=== PATIENT | male | born 1975 | race Caucasian/White ===

== ENCOUNTER → 2018-03-15 15:47 | Outpatient (REF) | payer MEDICARE, SELFPAY ==
[2018-03-15 18:29] LABS: Bilirubin Negative (Negative); Blood Trace-intact (Negative); Clarity Clear; Glucose Negative (Negative); Ketones Negative (Negative); Leukocyte Esterase Negative (Negative); Nitrite Negative (Negative); Specific Gravity 1.015 (1.005-1.025); Urobilinogen 0.2 EU/dL (Up TO 0.2); pH 5.5 (5-8)
[2018-03-15 18:43] LABS: Bacteria Few HPF (Negative); Casts Negative LPF (Negative); Crystals Negative HPF (Negative); Epithelial Cells Few HPF (Negative); Mucus Moderate (Negative); RBC 0-2 (0-2); WBC 0-2 HPF (0-5)
[2018-03-15 18:44] LABS: C & S Indicated? No
== END ==
LOC: NCHCN 15:47
PROVIDERS: PCP Nurse Practitioner Family; Visit Provider Nurse Practitioner Family
DX: R39.89 Other symptoms and signs involving the genitourinary system (principal)
CPT/HCPCS: 81003; 81015

== ENCOUNTER 2018-04-19 13:49 | Outpatient (CLI) | payer MEDICARE, SELFPAY ==
[2018-04-21 11:14] LABS: Hepatitis B Surface Ag Negative (NEGAT)
[2018-04-21 11:35] LABS: Hep A Total Ab w Rflx IgM Negative (NEGAT); Hep B Core Antibody Negative (NEGAT)
[2018-04-22 08:43] LABS: ALT 26 U/L (7-55); ActiTest Grade A0; ActiTest Interpretation no activity; ActiTest Score 0.09; Alpha-2-Macroglobulin 181 mg/dL (100 - 280); Apoliprotein A1 102 mg/dL (>=120); Bilirubin, Total 0.3 mg/dL (<=1.2); FibroTest Interpretation no fibrosis; FibroTest Score 0.12; FibroTest Stage F0; GGT 37 U/L (8 - 61); Haptoglobin 343 mg/dL (30 - 200)
[2018-04-22 10:42] LABS: HCV Genotype 1a (Undetected)
== END 2018-04-19 14:09 ==
PROVIDERS: PCP Nurse Practitioner Family; Visit Provider Family Medicine
DX: B19.20 Unspecified viral hepatitis C without hepatic coma (principal)
CPT/HCPCS: 36415; 82172; 82247; 82977; 83010; 83883; 84460; 86704; 86709; 87340; 87521

== ENCOUNTER 2018-04-29 12:15 | Outpatient (CLI) | payer MEDICARE, SELFPAY ==
[2018-04-30 11:36] LABS: Hepatitis B Surface Ag Negative (NEGAT)
[2018-04-30 11:37] LABS: Hep A Total Ab w Rflx IgM Negative (NEGAT)
[2018-05-01 13:01] LABS: ALT 26 U/L (7-55); ActiTest Grade A0; ActiTest Interpretation no activity; Alpha-2-Macroglobulin 211 mg/dL (100 - 280); Apoliprotein A1 103 mg/dL (>=120); Bilirubin, Total 0.4 mg/dL (<=1.2); FibroTest Interpretation no fibrosis; FibroTest Score 0.18; FibroTest Stage F0; GGT 38 U/L (8 - 61); Haptoglobin 375 mg/dL (30 - 200)
[2018-05-03 16:12] LABS: HCV Genotype 1a (Undetected)
== END 2018-04-29 12:35 ==
PROVIDERS: PCP Nurse Practitioner Family; Visit Provider Family Medicine
DX: B19.20 Unspecified viral hepatitis C without hepatic coma (principal)
CPT/HCPCS: 36415; 82172; 82247; 82977; 83010; 83883; 84460; 86709; 87340; 86704; 87521

== ENCOUNTER 2018-05-04 15:34 | Outpatient (REF) | payer MEDICARE, SELFPAY ==
[2018-05-06 13:26] LABS: Chlamydia Result Negative; GC Result Negative; Specimen Description URINE
== END 2018-05-04 15:54 ==
LOC: NCHCN 15:34
PROVIDERS: PCP Nurse Practitioner Family; Visit Provider Nurse Practitioner Family
DX: N50.812 Left testicular pain (principal); Z11.3 Encounter for screening for infections with a predominantly sexual mode of transmission
CPT/HCPCS: 87491; 87591

== ENCOUNTER 2018-05-11 11:07 | Outpatient (CLI) | payer MEDICARE, MEDICAID, SELFPAY ==
--- NOTE | 2018-05-11 12:28 | DI.US_ITS ---
SYMPTOMS/DIAGNOSIS: LT TESTICULAR PAIN, N50.812, ACUTE PAIN, SWELLING TESTICULAR ULTRASOUND: The right testicle measures 3.2 x 1.8 x 2.5 cm. It is homogeneous with normal blood flow. No evidence of torsion or mass. The right epididymis is unremarkable with normal color flow. The left testicle measures 3.1 x 1.6 x 2.4 cm. It is homogeneous in echogenicity with normal blood flow. No evidence of torsion or mass is seen. The left epididymis is unremarkable save for two small spermatoceles. There appear to be three small extratesticular cysts along the scrotal wall. They are simple without any blood flow. IMPRESSION: No evidence of testicular torsion, infarct or mass.
[2018-05-13 17:37] LABS: Index Value 0.12 (0.00-0.79); Mumps Ab, IgG Positive; Mumps Ab, IgM Negative (Negative)
== END 2018-05-11 11:27 ==
PROVIDERS: PCP Nurse Practitioner Family; Visit Provider Family Medicine
DX: N50.812 Left testicular pain (principal); N50.89 Other specified disorders of the male genital organs; N43.40 Spermatocele of epididymis, unspecified
CPT/HCPCS: 36415; 83735; 86735; 76870

== ENCOUNTER 2018-05-25 00:42 | Outpatient (CLI) | payer MEDICARE, MEDICAID, SELFPAY ==
--- NOTE | 2018-05-25 09:00 | DI.RAD_ITS ---
SYMPTOMS/DIAGNOSIS: LEFT KNEE PAIN, M25.562 LEFT KNEE: The joint spaces are well maintained. There are no significant degenerative changes. No fracture or joint effusion is seen. IMPRESSION: Negative left knee.
== END 2018-05-25 01:02 ==
PROVIDERS: PCP Nurse Practitioner Family; Visit Provider Family Medicine
DX: M25.562 Pain in left knee (principal)
CPT/HCPCS: 73562

== ENCOUNTER 2018-06-18 09:17 | Outpatient (CLI) | payer MEDICARE, SELFPAY ==
[2018-06-18 11:06] LABS: TSH 1.46 uIU/mL (0.358-3.74); Vitamin B12 402 pg/mL (193-986)
== END 2018-06-18 09:37 ==
PROVIDERS: Nurse Practitioner Family; PCP Nurse Practitioner Family; Visit Provider Nurse Practitioner Family
DX: F10.11 Alcohol abuse, in remission (principal); E78.5 Hyperlipidemia, unspecified; I10 Essential (primary) hypertension; E66.9 Obesity, unspecified
CPT/HCPCS: 36415; 82607; 84443

== ENCOUNTER 2018-07-06 09:22 | Outpatient (CLI) | payer MEDICARE, SELFPAY ==
[2018-07-06 09:53] LABS: HCT 38.2 % (40.0-50.0); HGB 12.1 g/dL (13.5-17.5); Mean Corp. HGB Concentration 31.7 g/dL (32.0-36.0); Mean Corpuscular Hemoglobin 26.5 pg (27.0-33.0); Mean Corpuscular Volume 83.6 fL (80-95); Mean Platelet Volume 8.8 fL (8.0-11.0); Platelet Count 348 x1000/uL (130-400); RBC 4.57 m/cumm (4.50-6.00); RBC Distribution Width 14.4 % (11.8-14.1)
[2018-07-06 11:33] LABS: ALT 20 U/L (12-78); AST 14 U/L (15-37); Albumin 3.3 g/dL (3.4-5.0); Alkaline Phosphatase 94 U/L (46-116); Anion Gap 11.2 mmol/L (3-11); BUN 12 mg/dL (7-18); Bilirubin, Total 0.5 mg/dL (0.2-1.0); CO2 25.8 mmol/L (21.0-32.0); CREATININE 1.09 mg/dL (0.70-1.30); Calcium 8.9 mg/dL (8.5-10.1); Chloride 102 mmol/L (98-107); Glucose 103 mg/dL (70-100); Potassium 4.1 mmol/L (3.5-5.1); Sodium 139 mmol/L (136-145); Total Protein 7.2 g/dL (6.4-8.2)
[2018-07-07 14:04] LABS: HCV RNA Detection Quantitative Undetected IU/mL (UNDECT)
== END 2018-07-06 09:42 ==
PROVIDERS: PCP Nurse Practitioner Family; Visit Provider Family Medicine
DX: B19.20 Unspecified viral hepatitis C without hepatic coma (principal)
CPT/HCPCS: 36415; 80053; 85027; 87522

== ENCOUNTER 2018-08-02 08:49 | Inpatient (IN) | payer MEDICARE, MEDICAID, SELFPAY ==
[2018-08-02 08:56] VITALS: BP 143/86; PULSE 102; RESP 16; TEMP 37.8; O2SAT 98
--- NOTE | 2018-08-02 09:01 | NUR.NOTE ---
Pt. states he is on his last week of 8 week long treatment for Hep C, Mavret Treatment, which he takes as a pill.
[2018-08-02 10:08] LABS: Lactate-non-spesis 1.1 mmol/L (0.6-1.4)
[2018-08-02 10:09] LABS: Abs Immature Grans 0.02 k/cumm (0.0-0.09); Absolute Basophil Count 0.02 k/cumm (0.0-0.2); Absolute Eosinophil Count 0.15 k/cumm (0.0-0.7); Absolute Lymphocyte Count 1.49 k/cumm (1.2-3.4); Absolute Monocyte Count 0.68 k/cumm (0.11-0.7); Absolute Neutrophil Count 7.17 k/cumm (1.2-6.7); Basophils % 0.2; Eosinophils % 1.6; HGB 12.2 g/dL (13.5-17.5); Immature Grans % 0.2; Lymphocytes % 15.6; Mean Corp. HGB Concentration 32.1 g/dL (32.0-36.0); Mean Corpuscular Hemoglobin 26.6 pg (27.0-33.0); Mean Corpuscular Volume 82.8 fL (80-95); Mean Platelet Volume 8.6 fL (8.0-11.0); Monocytes % 7.1; Neutrophils % 75.3; Platelet Count 319 x1000/uL (130-400); RBC 4.59 m/cumm (4.50-6.00); RBC Distribution Width 14.9 % (11.8-14.1); White Blood Cell Count 9.53 k/cumm (4.4-10.8)
--- NOTE | 2018-08-02 10:17 | DI.RAD_ITS ---
SYMPTOMS/DIAGNOSIS: PAIN, SWELLING PELVIS AND LEFT HIP: No fracture or dislocation is seen. Vascular clips are noted in the upper left thigh. There is some acetabular spurring bilaterally. Hardware is noted in the lower lumbar spine. IMPRESSION: No acute abnormality.
[2018-08-02 10:22] LABS: C-Reactive Protein 7.38 mg/dL (0.0-0.3)
[2018-08-02 10:26] LABS: ALT 19 U/L (12-78); AST 17 U/L (15-37); Albumin 3.3 g/dL (3.4-5.0); Alkaline Phosphatase 84 U/L (46-116); BUN 15 mg/dL (7-18); Bilirubin, Total 0.5 mg/dL (0.2-1.0); CREATININE 1.09 mg/dL (0.70-1.30); Calcium 9.6 mg/dL (8.5-10.1); Chloride 102 mmol/L (98-107); Glucose 101 mg/dL (70-100); Potassium 3.9 mmol/L (3.5-5.1); Sodium 140 mmol/L (136-145)
--- NOTE | 2018-08-02 10:47 | W.ED.GENAD ---
Discharge Plan Discharge Details Chief Complaint: Orthopedic Reason For Visit: LEFT HIP SOFT TISSUE INFECTION Admit Date/Time: 08/02/18 15:14 Admit Provider: Natanael Restrepo Attending Provider: Natanael Restrepo Primary Care Provider: Ashely Mueller ED Provider: Thelma Horowitz Discharge Data Discharge Date/Time-TO BE ENTERED AT DEPARTURE: 08/02/18 15:30 Medical Decision Making Jason Avila is a 42 y/o man with h/o hepatitis C, IVDU in the past, GERD presenting to the emergency department with left proximal thigh pain and redness. On exam Pt is well and non-toxic appearing, walks with a limp, area of erythema/induration/TTP without fluctuance over left proximal anterior thigh. Concern for abscess vs myositis vs less likely septic hip vs other. Plan for screening labs, CT, ortho consult. CT shows no abscess, concern for myositis. Dr. Restrepo at bedside, abx held for aspiration attempt. No fluid collection on bedside US. No aspiration performed. Will give vanc zosyn. Plan for admission. Clinical Impression: myositis Disposition: [facility] inpatient Medical Records Medical records reviewed: Yes I reviewed the patient's medical records. Imaging Data Radiologic Study: Attestation: I personally reviewed and interpreted this imaging study as follows: Radiologist's impression: CT OF THE PELVIS: Comparison is made with a CT of the abdomen and pelvis dated January,. Postcontrast exam was performed. There is stranding in the subcutaneous fat of the upper anterior thigh. There are surgical clips, which were seen on the previous exam. There are rounded areas of low density and enlargement within the iliopsoas muscle, sartorius and rectus femoris muscles. More distally, the muscles appear normal. Findings could represent an infection versus malignancy. The hip joint shows no evidence of a joint effusion. No bony destruction is seen. There is some spurring at the greater trochanter and a small spur seen anteriorly at the femoral head, which appears unchanged. IMPRESSION: Muscle enlargement of the upper anterior thigh with surrounding soft tissue edema may represent myositis. Malignancy cannot be entirely excluded. Lab Data Lab results reviewed: Yes I reviewed the patient's lab results. HPI General Mode of arrival: ambulatory. Date/Time Provider Initiated Documentation: 08/02/18 09:35. Limitations to Documentation: no limitations. Information obtained by: patient, RN notes reviewed and old records reviewed. HPI Narrative: Jason Joiner is a 42-year-old man with history of hepatitis C, IV drug use in the past, anxiety, hypertension presenting to the emergency department with left-sided thigh pain. He reports that he last used IV drugs several years ago. He is currently toward the end of treatment regimen for hepatitis C. Patient reports that 2 days ago he started to develop pain in his anterior left hip/left thigh. This has been worsening over time. He now has significant pain with walking. He has also had generalized fatigue, malaise, and subjective fevers over the past 1-2 weeks. He denies any other pain. No other recent illness. Patient reports that he does not recall injuring the area recently or any skin wound to the painful area. Has been eating and drinking as usual. No recent travel. Patient reports that several years ago he had surgery to the painful area for washout of infection. He reports that he has had no complications from that surgery since it was performed years ago. Related Data Home Medications Medication Instructions Recorded Confirmed acetaminophen [Tylenol] 650 mg PO PRN PRN 08/02/18 08/02/18 glecaprevir-pibrentasvir [Mavyret] 3 tab PO DAILY 08/02/18 08/02/18 Allergies Allergy/AdvReac Type Severity Reaction Status Date / Time No Known Allergies Allergy Unverified 05/26/17 12:05 General Stated Complaint: Orthopedic DEEPTI: 3 Review of Systems Review of Systems Constitutional: denies fevers Eyes: denies eye pain ENT: denies facial pain, dental pain, sore throat Cardiovascular: denies chest pain, edema Respiratory: denies SOB, cough GI: denies abdominal pain, vomiting, diarrhea : denies flank pain MSK: denies back pain, neck pain, reports left hip pain Skin: reports left thigh rash Neuro: denies headaches, numbness, tingling, weakness PFSH Medical History Affective personality disorder (Chronic) Anxiety (Chronic) Bipolar 2 disorder (Chronic) Depression (Chronic) GERD (gastroesophageal reflux disease) (Chronic) HTN (hypertension) (Chronic) Hepatitis C (Chronic) History of alcohol abuse (Chronic) History of intravenous drug abuse (Chronic) Hyperlipidemia (Chronic) Kidney stones (Chronic) PTSD (post-traumatic stress disorder) (Chronic) TBI (traumatic brain injury) (Chronic) Surgical History Appendectomy Colonoscopy - MAC (11/14/16) EGD - MAC (11/14/16) Rotator Cuff Repair Spinal Fusion Vasectomy Social History Smoking/Tobacco Use Status: Current every day Exam Narrative Exam Narrative: Constitutional: well and [id number], pleasant, conversing normally HENT: head atraumatic, normocephalic normal inspection, mucous membranes moist Eyes: conjunctiva normal, sclera normal, pupils 3mm b/l Neck: no stridor, normal ROM, trachea midline Chest: normal inspection Resp: normal work of breathing, LCTAB Cardio: normal rate, normal rhythm, no murmur appreciated GI: abdomen soft, non-tender, non-distended : No inguinal LAD Back: normal inspection, no rash Skin: warm, dry, normal color, no rash other than as below Neuro: alert, not altered, grossly non-focal, normal tone, no motor or sensory deficit LLE Ext: left proximal anterior thigh with mild erythema [id number], induration without fluctuance, TTP. No TTP of lateral hip. ROM left hip somewhat limited by pain. Bears weight on LLE but walks with a limp. Psych: normal mood, normal affect, normal behavior Course Vital Signs Temperature 37.8 C H 08/02/18 08:56 Pulse 102 H 08/02/18 08:56 Respiratory Rate 16 08/02/18 08:56 Blood Pressure 143/86 H 08/02/18 08:56 Pulse Oximetry 98 08/02/18 08:56 Temperature 37.8 C H 08/02/18 08:56 Temperature Source Temporal Artery Scan 08/02/18 08:56 Pulse 102 H 08/02/18 08:56 Respiratory Rate 16 08/02/18 08:56 Respiratory Effort 08/02/18 09:40 Blood Pressure 143/86 H 08/02/18 08:56 Blood Pressure Position Sitting 08/02/18 08:56 Pulse Oximetry 98 08/02/18 08:56 Oxygen Delivery Method Room Air 08/02/18 08:56 Oxygen Flow Rate 0 08/02/18 08:56 Pain Level 7 08/02/18 08:56 Comment 08/02/18 08:56 Lab/Test Results Lab/Test Results: 08/02/18 09:45 Blood Blood Culture - Pending 08/02/18 09:45 Blood Blood Culture - Pending Laboratory Tests Range/Units 08/02/18 08/02/18 08/02/18 09:45 09:45 09:45 WBC (4.4-10.8) k/cumm RBC (4.50-6.00) m/cumm Hgb (13.5-17.5) g/dL Hct (40.0-50.0) % MCV (80-95) fL MCH (27.0-33.0) pg MCHC (32.0-36.0) g/dL RDW (11.8-14.1) % Plt Count (130-400) x1000/uL MPV (8.0-11.0) fL Immature Gran % Neutrophils % Lymphocytes % Monocytes % Eosinophils % Basophils % Absolute Neutrophils (1.2-6.7) k/cumm Absolute Lymphocytes (1.2-3.4) k/cumm Absolute Monocytes (0.11-0.7) k/cumm Absolute Eosinophils (0.0-0.7) k/cumm Absolute Basophils (0.0-0.2) k/cumm Sodium (136-145) mmol/L 140 Potassium (3.5-5.1) mmol/L 3.9 Chloride (98-107) mmol/L 102 Carbon Dioxide (21.0-32.0) mmol/L 28.0 Anion Gap (3-11) mmol/L 10.0 BUN (7-18) mg/dL 15 Creatinine (0.70-1.30) mg/dL 1.09 Estimated GFR/1.73 m2 (mL/min/1.73m2) >= 60.00 Glucose (70-100) mg/dL 101 H Lactate (0.6-1.4) mmol/L 1.1 Calcium (8.5-10.1) mg/dL 9.6 Total Bilirubin (0.2-1.0) mg/dL 0.5 AST (15-37) U/L 17 ALT (12-78) U/L 19 Alkaline Phosphatase (46-116) U/L 84 C-Reactive Protein (0.0-0.3) mg/dL 7.38 H Total Protein (6.4-8.2) g/dL 8.0 Albumin (3.4-5.0) g/dL 3.3 L Range/Units 08/02/18 09:45 WBC (4.4-10.8) k/cumm 9.53 RBC (4.50-6.00) m/cumm 4.59 Hgb (13.5-17.5) g/dL 12.2 L Hct (40.0-50.0) % 38.0 L MCV (80-95) fL 82.8 MCH (27.0-33.0) pg 26.6 L MCHC (32.0-36.0) g/dL 32.1 RDW (11.8-14.1) % 14.9 H Plt Count (130-400) x1000/uL 319 MPV (8.0-11.0) fL 8.6 Immature Gran % 0.2 Neutrophils % 75.3 Lymphocytes % 15.6 Monocytes % 7.1 Eosinophils % 1.6 Basophils % 0.2 Absolute Neutrophils (1.2-6.7) k/cumm 7.17 H Absolute Lymphocytes (1.2-3.4) k/cumm 1.49 Absolute Monocytes (0.11-0.7) k/cumm 0.68 Absolute Eosinophils (0.0-0.7) k/cumm 0.15 Absolute Basophils (0.0-0.2) k/cumm 0.02 Sodium (136-145) mmol/L Potassium (3.5-5.1) mmol/L Chloride (98-107) mmol/L Carbon Dioxide (21.0-32.0) mmol/L Anion Gap (3-11) mmol/L BUN (7-18) mg/dL Creatinine (0.70-1.30) mg/dL Estimated GFR/1.73 m2 (mL/min/1.73m2) Glucose (70-100) mg/dL Lactate (0.6-1.4) mmol/L Calcium (8.5-10.1) mg/dL Total Bilirubin (0.2-1.0) mg/dL AST (15-37) U/L ALT (12-78) U/L Alkaline Phosphatase (46-116) U/L C-Reactive Protein (0.0-0.3) mg/dL Total Protein (6.4-8.2) g/dL Albumin (3.4-5.0) g/dL
--- NOTE | 2018-08-02 10:53 | NUR.NOTE ---
In no distress, awaiting results and dispo.
[2018-08-02 10:59] LABS: ESR 94 MM/HR (0-15)
--- NOTE | 2018-08-02 11:22 | NUR.NOTE ---
Pt moved to results waiting room because of room needs, pt. is frustrated, but verbalizes understanding and agrees to wait for results and disposition.
--- NOTE | 2018-08-02 11:42 | NUR.NOTE ---
Ortho. MEJIA at the bedside.
--- NOTE | 2018-08-02 13:00 | DI.CT_ITS ---
SYMPTOMS/DIAGNOSIS: LEFT HIP/THIGH PAIN WITH RANGE OF MOTION, SKIN CHANGES S/P HIP SURGERY, ? ABSCESS CT OF THE PELVIS: Comparison is made with a CT of the abdomen and pelvis dated January,. Postcontrast exam was performed. There is stranding in the subcutaneous fat of the upper anterior thigh. There are surgical clips, which were seen on the previous exam. There are rounded areas of low density and enlargement within the iliopsoas muscle, sartorius and rectus femoris muscles. More distally, the muscles appear normal. Findings could represent an infection versus malignancy. The hip joint shows no evidence of a joint effusion. No bony destruction is seen. There is some spurring at the greater trochanter and a small spur seen anteriorly at the femoral head, which appears unchanged. IMPRESSION: Muscle enlargement of the upper anterior thigh with surrounding soft tissue edema may represent myositis. Malignancy cannot be entirely excluded.
--- NOTE | 2018-08-02 13:25 | NUR.NOTE ---
MD Sullivan placed ultrasound guided line, line in CT scan had infiltrated.
[2018-08-02] MEDS: Ibuprofen 600 MG TAB PO (13:27)
[2018-08-02 13:30] VITALS: BP 137/95; PULSE 108; RESP 18; O2SAT 97
--- NOTE | 2018-08-02 13:33 | NUR.NOTE ---
to ct scan
[2018-08-02] MEDS: Omnipaque 350 MG/ML 100 ML BTL IJ (13:48)
--- NOTE | 2018-08-02 14:34 | NUR.NOTE ---
In Results waiting, waiting for likely plan for admit, is in no acute distress.
--- NOTE | 2018-08-02 14:36 | NUR.NOTE ---
Pt. aware of plan to stay in Results waiting room till room upstairs is ready, pt. is in no distress.
--- NOTE | 2018-08-02 14:54 | NUR.NOTE ---
wicho Islas is at the bedside.
[2018-08-02 15:41] LABS: Creatine Kinase 68 U/L (39-308)
[2018-08-02] MEDS: PIPERACILLIN/TAZO 4.5 GM in Normal Saline 100 ML IVPB (15:47)
--- NOTE | 2018-08-02 15:52 | NUR.NOTE ---
Report called to Adam on med surge floor.
[2018-08-02 16:32] VITALS: BP 125/92; PULSE 92; RESP 20; TEMP 37.6; O2SAT 97
[2018-08-02] MEDS: VANCOMYCIN 2,000 MG in Normal Saline 500 ML 250 MG IVPB (16:40)
[2018-08-02] MEDS: HYDROmorphone 2 MG/ML VIAL 0.5 MG IVP ×2 (16:58→22:12)
--- NOTE | 2018-08-02 17:04 | HPE_ITS ---
Date of service: 08/02/18 Time of Service: 12:00 Assessment and Plan (1) Suspected soft tissue infection: Current visit: Yes Status: Acute Jason appears to have an infection of the proximal left thigh and hip region. There is no fluid collection in the hip to suggest that this is a joint infection. However, there is significant enlargement of all of the proximal hip muscles including the iliopsoas, rectus femoris, and sartorius. There is no clear fluid collection. I also had Dr. Thelma Horowitz place an ultrasound on the area of induration and swelling and there was no clear fluid collection. Due to these findings, I did not find enough evidence to warrant immediate surgical decompression or attempted aspiration. I am also concerned about aspirating the hip as all approaches would take me through the affected area. I will start empiric antibiotics. I do not have access to MRI tonight or tomorrow. Therefore, I am going to admit for the antibiotics and then await blood cultures. If he starts to show improvement then we will work on narrowing coverage to likely staph organisms. I will try to get the results from his time in [place] when he had this infection last. If he does not show some signs of improvement then I will obtain an MRI on Thursday morning with surgical debridement if indicated. History of Present Illness Chief Complaint: Left Hip Pain/Swelling Narrative: Jason is a 42yo male who has had increasing pain, swelling of the left thigh associated with fevers and chills. He has a previous history of IVDU and had a previous infection of the left hip debrided 6 or 7 years ago. He is unclear exactly what was done or if the hip itself was involved. He denies any significant recent infections except for maybe a little something on his foot which has resolved. He is also on the last week of Hep C treatment and has had no complications from the treatment. Over the last 3 days he has felt sick with chills and fevers. He noted some soreness over the anterior left thigh and hip region (directly underneath and adjacent to the previous surgical scar). This has continued, worsened, and has been associated with increased swelling of the region. He denies any back pain but does have previous history of lumbar fusion. He has no numbness or tingling. He denies any chest pain or shortness of breath. Review of Systems Review of Systems All systems reviewed & are unremarkable except as noted in HPI and below PFSH Surgical History Appendectomy Colonoscopy - MAC (11/14/16) EGD - MAC (11/14/16) Rotator Cuff Repair Spinal Fusion Vasectomy Social History Smoking/Tobacco Use Status: Current every day Meds Home Medications Medication Instructions Recorded Confirmed Type acetaminophen [Tylenol] 650 mg PO PRN PRN 08/02/18 08/02/18 History glecaprevir-pibrentasvir [Mavyret] 3 tab PO DAILY 08/02/18 08/02/18 History Allergies Allergy/AdvReac Type Severity Reaction Status Date / Time No Known Allergies Allergy Unverified 05/26/17 12:05 Exam Const General: cooperative and anxious Nutritional Appearance: overweight Orientation: alert, awake and oriented x3 Eyes General: appearance normal, both eyes and all related structures Skin Full body images: 1. Old surgical site Extrem Other: L hip shows an old incision. THere is no significant erythema at the site of the incision. There is significant swelling and fullness. The anterior musculature, in the tract of the incision and inline with the sartorius muscle, is firm. There is significant pain to palpation. The area is indurated. There is tenderness throughout the entire proximal thigh and up to the pelvis. He becomes anxious and grimaces prior to palpation or examination. He is able to ambulate to the exam room with a mild limp. He is observe to actively move the hip with some visual discomfort although he allows no passive range of motion of the hip, pionting to the anterior hip/thigh. SILT Fem/Tib/Peroneal. Foot WWP. Results Imaging Imaging Studies: XR of the left hip: Mild degenerative changes seen about the left hip. Some spurring of the greater trochanter. Surgical vascular clips over the anterior hip. CT of the left hip: Marked enlargement of the anterior thigh musculature. This is primarily involving from the proximal thigh, just distal to the pelvis, and down through the upper 1/3 of the thigh. There is no clear abscess or fluid co llection. Multiple muscles are enlarged including the sartorius, rectus femoris, and iliopsoas. No gas or stranding is appreciated. No fluid collection in the hip. Labs : 08/02/18 09:45 08/02/18 09:45 Laboratory Results - last 24 hr 08/02/18 08/02/18 08/02/18 09:45 09:45 09:45 WBC RBC Hgb Hct MCV MCH MCHC RDW Plt Count MPV Immature Gran % Neutrophils % Lymphocytes % Monocytes % Eosinophils % Basophils % Absolute Neutrophils Absolute Lymphocytes Absolute Monocytes Absolute Eosinophils Absolute Basophils ESR 94 H Sodium Potassium Chloride Carbon Dioxide Anion Gap BUN Creatinine Estimated GFR/1.73 m2 Glucose Lactate 1.1 Calcium Total Bilirubin AST ALT Alkaline Phosphatase Creatine Kinase C-Reactive Protein 7.38 H Total Protein Albumin 08/02/18 08/02/18 08/02/18 09:45 09:45 09:45 WBC 9.53 RBC 4.59 Hgb 12.2 L Hct 38.0 L MCV 82.8 MCH 26.6 L MCHC 32.1 RDW 14.9 H Plt Count 319 MPV 8.6 Immature Gran % 0.2 Neutrophils % 75.3 Lymphocytes % 15.6 Monocytes % 7.1 Eosinophils % 1.6 Basophils % 0.2 Absolute Neutrophils 7.17 H Absolute Lymphocytes 1.49 Absolute Monocytes 0.68 Absolute Eosinophils 0.15 Absolute Basophils 0.02 ESR Sodium 140 Potassium 3.9 Chloride 102 Carbon Dioxide 28.0 Anion Gap 10.0 BUN 15 Creatinine 1.09 Estimated GFR/1.73 m2 >= 60.00 Glucose 101 H Lactate Calcium 9.6 Total Bilirubin 0.5 AST 17 ALT 19 Alkaline Phosphatase 84 Creatine Kinase 68 C-Reactive Protein Total Protein 8.0 Albumin 3.3 L Last Vital Signs Temp 37.8 C H 08/02/18 08:56 Pulse 108 H 08/02/18 13:30 Resp 18 08/02/18 13:30 BP 137/95 H 08/02/18 13:30 Pulse Ox 97 08/02/18 13:30
--- NOTE | 2018-08-02 17:42 | PDOC.ANES ---
Date of service: 08/02/18 Time of Service: 17:42 Anesthesia Note Report Anesthesia Note: Requested to place IV in difficult IV start patient with history of prior drug use for IV antibiotics. Discussed options with patient and decision to place midline and consent obtained. Ultrasound guided 20g midline catheter placed in right basilic vein after the right arm was prepped in sterile fashion. Lidocaine 1% skin wheal administered, attempt x1, positive blood return. Patient tolerated procedure well.
[2018-08-02] MEDS: Acetaminophen 500 MG TAB 1000 MG PO (19:48)
--- NOTE | 2018-08-02 20:26 | NUR.NOTE ---
Patient came to the unit from the emergency department on a stretcher accompanied ER nurse Dary. he is conscious alert, rational and oriented x 3. he voiced 8/10 pain to the left hip. On examination patient mucus membrane is pink and moist chest clear, he wears glasses. His chest is clear when ascultated abdomen obese no tenderness voiced to the right side but bright red well healed surical line noted to the left side of lower abdomen and to the groin area, where the patient state he is experiencing pain, Pt has a 18G branula to the left upper arm, he has good blood return denies any pain to the area, but there is a slight swelling to same. bilateral pedal pulses felt.
[2018-08-02] MEDS: PIPERACILLIN/TAZO 3.375 GM in Normal Saline 50 ML IVPB (21:27)
[2018-08-02] MEDS: Normal Saline Flush 10 ML SYR (22:12)
[2018-08-03] VITALS (7 sets, daily range): BP systolic 108–135; BP diastolic 61–87; PULSE 73–82; RESP 16–20; TEMP 35.9–37.1; O2SAT 95–98
[2018-08-03] MEDS: VANCOMYCIN 1,500 MG in Normal Saline 500 ML 333.333 MG IVPB ×3 (01:55→17:49)
[2018-08-03] MEDS: oxyCODONE 5 MG TAB PO ×5 (02:05→22:07)
[2018-08-03] MEDS: Normal Saline Flush 10 ML SYR (02:32)
[2018-08-03] MEDS: Normal Saline Flush 10 ML SYR IVP ×7 (02:33→20:04)
[2018-08-03] MEDS: PIPERACILLIN/TAZO 3.375 GM in Normal Saline 50 ML IVPB ×4 (04:11→22:07)
[2018-08-03] MEDS: Pantoprazole 40 MG TABCR PO (06:53)
[2018-08-03] MEDS: Acetaminophen 500 MG TAB 1000 MG PO ×3 (07:49→20:02)
[2018-08-03] MEDS: Ketorolac 15 MG/ML VIAL IVP ×3 (07:49→20:02)
[2018-08-03 08:04] LABS: Anion Gap 10.3 mmol/L (3-11); BUN 15 mg/dL (7-18); CO2 25.7 mmol/L (21.0-32.0); CREATININE 1.22 mg/dL (0.70-1.30); Calcium 8.5 mg/dL (8.5-10.1); Chloride 103 mmol/L (98-107); Glucose 98 mg/dL (70-100); Potassium 4.1 mmol/L (3.5-5.1); Sodium 139 mmol/L (136-145)
--- NOTE | 2018-08-03 08:28 | PDOC.CMIN ---
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 Appendectomy. Colonoscopy - MAC (11/14/16). EGD - MAC (11/14/16). Rotator Cuff Repair. Spinal Fusion. Vasectomy PREVIOUS FUNCTIONAL STATUS/SOCIAL/FAMILY SUPPORTS:: Jason resides in [place] with his roommate Alonzo. He states that he is independent at baseline, he drives, and manages ADL's. Jason reports that he is on disability for dissociative behaviors and has been on disability for the past 6 years. CURRENT FUNCTIONAL STATUS:: Currently Jason is lying in bed this morning. He states that he is feeling hot and requests a fan which CM provides. Jason also states that he would like to have a shower today which CM notified OWEN Renee, of. ADVANCE DIRECTIVES:: None on file Has patient been provided with information about the portal?: Yes Did the patient sign up for the portal?: No CODE STATUS:: Full Code INSURANCE COVERAGE / FINANCIAL ISSUES:: Medicare, Medicaid CURRENT HOME/COMMUNITY SERVICES/EQUIPMENT:: Currently Jason has no services or medical equipment in the community. PRIMARY CARE PHYSICIAN:: Ashely Mueller POTENTIAL DISCHARGE NEEDS:: F/U appointment with Dr. Restrepo PATIENT/FAMILY EDUCATION NEEDS:: Review DC instructions, any limitations, and ongoing DC planning discussion. Discuss 'Ask Me Three' ANTICIPATED BARRIERS TO DISCHARGE:: None identified at this time TRANSPORTATION:: Via private vehicle with friend Alonzo PLAN:: Jason will return home when medically cleared, he will F/U with Dr. Restrepo and plan of care as prescribed. Jason's friend Alonzo will transport home when ready.
--- NOTE | 2018-08-03 09:20 | PGE_ITS ---
Date of Service Date of service: 08/03/18 Time of Service: 09:16 Assessment and Plan (1) Suspected soft tissue infection: Current visit: Yes Status: Acute Jason is a 42-year-old who likely is an infection of the musculature of the left hip. He is able to ambulate and is able to move the leg with no fluid on CT, therefore, not likely an intra-articular infection. However, the ma jority of the muscles around the hip itself are involved. The CT scan and ultrasound did not show any clear fluid collection. Therefore, we have started on broad-spectrum antibiotics. He has a history of infection in this area. However, we have no records of what was done or what grew although he remembers being staph. We will continue with the broad-spectrum antibiotics and await blood cultures. He has a midline for access. He may ambulate as tolerated. We will obtain an MRI in the morning to evaluate for any drainable fluid collection and to characterize the swelling seen on the CT scan. He will be n.p.o. after midnight in case a surgical debridement is necessary. Subjective Interval history since last seen: Jason reports that in general things are about the same. He feels that the area is slightly firmer than it was before. However, he denies any a sending her descending pain or symptoms. He has been able to ambulate independently. In general he thinks the pain is getting slightly better but he is taking medications for it. He denies any fever or chills since admissions. His vital signs remained stable. He did have poor IV access in the midline was placed yesterday. He denies chest pain or shortness of breath. Exam Narrative Exam Narrative: Jason appears much more comfortable. He is observed moving from a sitting to a supine position without any significant difficulty and only mild grimace. He is able to lift his leg into the bed. He no longer appears as anxious nor ill as he did yesterday. In the supine position the left hip is examined. Again there is a firmness palpated just deep to the incision over the anterior left thigh. It does appear quite firm but it is compressible which does cause pain. There is no pain in the distal thigh including both medial compartment, anterior compartment, and posterior compartment. No pain to palpation of the knee. He does not relax in the supine position I am able to logroll the leg, external and internal rotation, without any significant increase in pain. He endorses full sensation over the femoral nerve. No pain to palpation of the belly or of the back. Objective Objective Clinical Data: Abnormal lab results 08/02/18 08/02/18 08/02/18 Range/Units 09:45 09:45 09:45 Hgb (13.5-17.5) g/dL Hct (40.0-50.0) % MCH (27.0-33.0) pg RDW (11.8-14.1) % Absolute Neutrophils (1.2-6.7) k/cumm ESR 94 H (0-15) MM/HR Glucose 101 H (70-100) mg/dL C-Reactive Protein 7.38 H (0.0-0.3) mg/dL Albumin 3.3 L (3.4-5.0) g/dL 08/02/18 08/03/18 Range/Units 09:45 07:15 Hgb 12.2 L (13.5-17.5) g/dL Hct 38.0 L (40.0-50.0) % MCH 26.6 L (27.0-33.0) pg RDW 14.9 H (11.8-14.1) % Absolute Neutrophils 7.17 H (1.2-6.7) k/cumm ESR (0-15) MM/HR Glucose (70-100) mg/dL C-Reactive Protein 7.50 H (0.0-0.3) mg/dL Albumin (3.4-5.0) g/dL Vital Signs Temperature 35.9 C L 08/03/18 03:41 Temperature Source Tympanic 08/03/18 03:41 Pulse 77 08/03/18 03:41 Pulse Rhythm Regular 08/03/18 02:00 Respiratory Rate 16 08/03/18 03:41 Respiratory Effort Non-Labored 08/03/18 02:00 Respiratory Depth Normal 08/03/18 02:00 Respiratory Pattern Normal 08/03/18 02:00 Blood Pressure 108/69 08/03/18 03:41 Blood Pressure Position Sitting 08/02/18 08:56 Pulse Oximetry 97 08/03/18 03:41 Oxygen Delivery Method Room Air 08/03/18 03:41 Oxygen Flow Rate 0 08/03/18 03:41 Pain Level 5 08/03/18 07:49 Comment 08/02/18 08:56 Intake & Output 08/02/18 08/02/18 08/03/18 11:59 23:59 11:59 Intake Total 160 / 160 950 / 950 Balance 160 / 160 950 / 950 Weight 136.985 kg 138.5 kg Intake: IV 160 / 160 550 / 550 Oral 400 / 400 Laboratory Results WBC 9.53 k/cumm (4.4-10.8) 08/02/18 09:45 RBC 4.59 m/cumm (4.50-6.00) 08/02/18 09:45 Hgb 12.2 g/dL (13.5-17.5) L 08/02/18 09:45 Hct 38.0 % (40.0-50.0) L 08/02/18 09:45 MCV 82.8 fL (80-95) 08/02/18 09:45 MCH 26.6 pg (27.0-33.0) L 08/02/18 09:45 MCHC 32.1 g/dL (32.0-36.0) 08/02/18 09:45 RDW 14.9 % (11.8-14.1) H 08/02/18 09:45 Plt Count 319 x1000/uL (130-400) 08/02/18 09:45 MPV 8.6 fL (8.0-11.0) 08/02/18 09:45 Immature Gran % 0.2 08/02/18 09:45 Neutrophils % 75.3 08/02/18 09:45 Lymphocytes % 15.6 08/02/18 09:45 Monocytes % 7.1 08/02/18 09:45 Eosinophils % 1.6 08/02/18 09:45 Basophils % 0.2 08/02/18 09:45 Absolute Neutrophils 7.17 k/cumm (1.2-6.7) H 08/02/18 09:45 Absolute Lymphocytes 1.49 k/cumm (1.2-3.4) 08/02/18 09:45 Absolute Monocytes 0.68 k/cumm (0.11-0.7) 08/02/18 09:45 Absolute Eosinophils 0.15 k/cumm (0.0-0.7) 08/02/18 09:45 Absolute Basophils 0.02 k/cumm (0.0-0.2) 08/02/18 09:45 ESR 94 MM/HR (0-15) H 08/02/18 09:45 Sodium 139 mmol/L (136-145) 08/03/18 07:15 Potassium 4.1 mmol/L (3.5-5.1) 08/03/18 07:15 Chloride 103 mmol/L (98-107) 08/03/18 07:15 Carbon Dioxide 25.7 mmol/L (21.0-32.0) 08/03/18 07:15 Anion Gap 10.3 mmol/L (3-11) 08/03/18 07:15 BUN 15 mg/dL (7-18) 08/03/18 07:15 Creatinine 1.22 mg/dL (0.70-1.30) 08/03/18 07:15 Estimated GFR/1.73 m2 >= 60.00 (mL/min/1.73m2) 08/03/18 07:15 Glucose 98 mg/dL (70-100) 08/03/18 07:15 Lactate 1.1 mmol/L (0.6-1.4) 08/02/18 09:45 Calcium 8.5 mg/dL (8.5-10.1) 08/03/18 07:15 Total Bilirubin 0.5 mg/dL (0.2-1.0) 08/02/18 09:45 AST 17 U/L (15-37) 08/02/18 09:45 ALT 19 U/L (12-78) 08/02/18 09:45 Alkaline Phosphatase 84 U/L (46-116) 08/02/18 09:45 Creatine Kinase 68 U/L (39-308) 08/02/18 09:45 C-Reactive Protein 7.50 mg/dL (0.0-0.3) H 08/03/18 07:15 Total Protein 8.0 g/dL (6.4-8.2) 08/02/18 09:45 Albumin 3.3 g/dL (3.4-5.0) L 08/02/18 09:45
--- NOTE | 2018-08-03 09:47 | PHARADMIT ---
Addendum entered by Dary Rivera 08/10/18 16:37: pt. is swinging today, orders on new account BP-147/95 SCr-improved here for antibiotics (2-6 weeks?) Original Note: Addendum entered by Dary Rivera 08/09/18 11:35: Pharmacy Note Subjective Objective bp-167/98 SCr-1.31(up) h/h-9.7/31.9(down) pain-6/10 Assessment cefazolin continues ketorolac discontinued; celecoxib ordered BID protonix ordered daily Plan pt. may swing for antibiotics (2-6 weeks?) Original Note: Addendum entered by Francesco Luis III 08/07/18 12:58: Pharmacy Note Subjective Patient continues to feel poorly, MD going back to OR today for another washout of Psoas abscesss. Objective BP-136/99 Pain:8/10 WBC-7.15 H&H-same Had BM today. Assessment Cefazolin continues. 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 Original Note: Addendum entered by Susannah Aguirre 08/05/18 16:38: Pharmacy Note Subjective pain is better after irrigation and debridement of abscess, some purulent material still draining , may need another irrigation Objective VS ok, WBC normal, H/H down to 10.1/31.6 Assessment vanco trough ordered 08/06@0500, pip/tazo continues, pt ownhome med Mavyret(glecaprevir/pibrentasvir)ordered Plan evaluate vancomycin trough Original Note: Addendum entered by Francesco Luis III 08/04/18 12:46: Pharmacy Note Subjective Infection of muscles of left hip, suspected. MD has taken patient to OR for surgical debridement. Objective Temep-37.2C VS-OK Labs WNL, SCr-1.23 (up) No new wgt, No BM Assessment Vancomycin trough high (24.4) RPh adjusted frequency to 1.5gm IV q10hrs, Zosyn continues. Plan Awaiting return from OR Original Note: Admission Pharmacy Clinical Review Left soft tissue infection Code Status Full Code Current Weight 138.5 kg Renally Cleared and Narrow Therapeutic Index Meds Crcl ~90.00 mL/min current meds okay QTc Value / Action Taken n/a BP Control, Fever BP 108/69 Tmax 37.8 yesterday Electrolytes reviewed within normal limits DVT Prophylaxis none Opiate Usage / Scheduled Bowel Regimen Ordered prn/no Plt/SCr for Heparin / Enoxaparin plt 319 SCr 1.22 INR for Warfarin n/a H/H stable, WBC/Bands h/h 12.2/38.0 wbc 9.53 Antibiotic appropriateness vanco and zosyn for possible infection of the musculature of the left hip per progress note Cultures and Sensitivities blood cultures pending Surgical ABX d/c within 24 hr n/a DM control / Insulin Dosing BG 98 Heart Failure (Check EF%) (PAMELA's, B-Block, Diuretics) none IV to PO Switch n/a Home Meds Reviewed yes Home Meds Not Ordered glecaprevir/pibrentasvir Comments vanco trough ordered for tomorrow @0900 MRI tomorrow morning
--- NOTE | 2018-08-03 11:13 | NUR.NOTE ---
MS and PHA were unable to verify nursing had given the loading dose of Vancomyicin. I called Kristina Grijalva RN who advised she did hang it but neglected to scan the med. I advised that she should document that she gave it on her next shift. Advised MS that patient did get the med per conversation w/ nurse.
[2018-08-04] VITALS (13 sets, daily range): BP systolic 134–158; BP diastolic 80–105; PULSE 67–83; RESP 13–20; TEMP 36.3–37.2; O2SAT 93–98
[2018-08-04] MEDS: Ketorolac 15 MG/ML VIAL IVP ×4 (02:10→20:42)
[2018-08-04] MEDS: VANCOMYCIN 1,500 MG in Normal Saline 500 ML 333 MG IVPB (02:10)
[2018-08-04] MEDS: oxyCODONE 5 MG TAB PO (03:54)
[2018-08-04] MEDS: PIPERACILLIN/TAZO 3.375 GM in Normal Saline 50 ML IVPB ×4 (03:58→22:44)
[2018-08-04] MEDS: ALPRAZolam 0.5 MG TAB PO (07:31)
[2018-08-04] MEDS: Gadoterate meglumine 20 ML VIAL IVP (08:23)
--- NOTE | 2018-08-04 08:35 | DI.MRI_ITS ---
SYMPTOM/DIAGNOSIS: LT HIP SOFT TISSUE INFECTION LEFT HIP MRI: T 1 and fat suppressed T 2 axial,coronal and sagittal and post Dotarem fat suppressed T 1 axial, coronal and sagittal sequences were performed. There is a multi loculated, high signal collection on T 2 weighted images extending from the region of the psoas to the upper thigh in a distribution consistent with ileopsoas bursitis. There are multiple loculations extending anteriorly between the sartorius and rectus femoris muscles. There is extensive enhancement post contrast. There is a small area of high signal in the anterior acetabulum which shows post contrast enhancement and could represent a focus of osteomyelitis. There are a few mildly enlarged left iliac chain lymph nodes, presumably reactive. IMPRESSION: Findings consistent with large ileopsoas bursitis with extensive enhancement worrisome for a superimposed infection. There is a small focus of high signal in the anterior acetabulum which could indicate osteomyelitis.
[2018-08-04] MEDS: Normal Saline Flush 10 ML SYR IVP ×3 (08:49→20:41)
[2018-08-04] MEDS: Acetaminophen 500 MG TAB 1000 MG PO ×3 (08:50→20:41)
[2018-08-04] MEDS: Pantoprazole 40 MG TABCR PO (08:51)
[2018-08-04] MEDS: Normal Saline 1,000 ML 80 ML IV ×2 (08:52→14:39)
[2018-08-04 09:31] LABS: Anion Gap 6.1 mmol/L (3-11); BUN 14 mg/dL (7-18); C-Reactive Protein 7.96 mg/dL (0.0-0.3); CO2 26.9 mmol/L (21.0-32.0); CREATININE 1.23 mg/dL (0.70-1.30); Calcium 9.2 mg/dL (8.5-10.1); Chloride 103 mmol/L (98-107); Glucose 98 mg/dL (70-100); Potassium 4.4 mmol/L (3.5-5.1); Sodium 136 mmol/L (136-145)
[2018-08-04 09:50] LABS: Vancomycin, Trough 24.4 ug/mL (10.0-20.0)
[2018-08-04 11:20] LABS: HCT 35.4 % (40.0-50.0); HGB 11.1 g/dL (13.5-17.5); Mean Corp. HGB Concentration 31.4 g/dL (32.0-36.0); Mean Corpuscular Hemoglobin 25.8 pg (27.0-33.0); Mean Corpuscular Volume 82.1 fL (80-95); Mean Platelet Volume 8.6 fL (8.0-11.0); Platelet Count 306 x1000/uL (130-400); RBC 4.31 m/cumm (4.50-6.00); RBC Distribution Width 14.9 % (11.8-14.1); White Blood Cell Count 8.98 k/cumm (4.4-10.8)
[2018-08-04] MEDS: Bupivacaine 0.25% Pres-Free 30 ML VIAL (13:22)
[2018-08-04] MEDS: fentaNYL 100 MCG/2 ML VIAL IVP ×2 (13:45→13:58)
--- NOTE | 2018-08-04 14:07 | PDOC.CMPRO ---
- If Service Date Differs Date of service: 08/04/18 Time of Service: 14:07 Care Management Progress Note S/O: Jason is sitting up in his chair when this short story writer visits this morning. He states that he had an MRI this morning and had Xanax to help him with his claustrophobia which he states has made him feel out of it. Jason states that Dr. Restrepo met with him and he will be going to the OR today either around noon or 1500. Jason states that he is ready to go to the OR as he has not been able to eat or drink since last night and he is feeling thirsty. CM reviewed DC plan with Jason, which remains unchanged at this time. A: 42 y/o male admitted 08/02/18 for (L) hip soft tissue infection. P: Jason to return home with no anticipated services once medically cleared. He will F/U with Dr. Restrepo and plan of care as prescribed. Jason's friend/roommate Alonzo to transport when ready.
--- NOTE | 2018-08-04 14:11 | CMPROGNOTE_ITS ---
- If Service Date Differs Date of service: 08/04/18 Time of Service: 14:07 Care Management Progress Note S/O: Jason is sitting up in his chair when this telegraphic typewriter operator chief visits this morning. He states that he had an MRI this morning and had Xanax to help him with his claustrophobia which he states has made him feel out of it. Jason states that Dr. Restrepo met with him and he will be going to the OR today either around noon or 1500. Jason states that he is ready to go to the OR as he has not been able to eat or drink since last night and he is feeling thirsty. CM reviewed DC plan with Jason, which remains unchanged at this time. A: 42 y/o male admitted 08/02/18 for (L) hip soft tissue infection. P: Jason to return home with no anticipated services once medically cleared. He will F/U with Dr. Restrepo and plan of care as prescribed. Jason's friend/roommate Alonzo to transport when ready.
[2018-08-04] MEDS: VANCOMYCIN 1,500 MG in Normal Saline 500 ML 333.333 MG IVPB (14:39)
[2018-08-04] MEDS: HYDROmorphone 2 MG/ML VIAL 0.5 MG IVP ×2 (14:49→16:56)
--- NOTE | 2018-08-04 16:46 | PGE_ITS ---
Date of Service Date of service: 08/04/18 Time of Service: 07:44 Assessment and Plan (1) Suspected soft tissue infection: Current visit: Yes Status: Raoul Gomez is a 42-year-old who likely is an infection of the musculature of the left hip. He is able to ambulate and is able to move the leg with no fluid on CT, therefore, not likely an intra-articular infection. However, the ma jority of the muscles around the hip itself are involved. He continues have pain, swelling, and fullness about the left hip. His inflammatory markers have not decreased although he has been on IV antibiotics for 2 days. Therefore, I would recommend we proceed with an MRI this morning. Following the MRI, if there is a notable fluid collection, I would recommend surgical debridement. He will remain n.p.o. Subjective Patient reports: no new complaints Interval history since last seen: Continue to have pain and swelling about the left hip. No significant change otherwise except he feels that the fullness is getting slightly larger. Exam Narrative Exam Narrative: In the supine position the left hip is examined. Again there is a firmness palpated just deep to the incision over the anterior left thigh. It does appear quite firm but it is compressible which does cause pain. It feels slightly larger than it did yesterday. There is no pain in the distal thigh including both medial compartment, anterior compartment, and posterior compartment. No pain to palpation of the knee. He does not relax in the supine position I am able to logroll the leg, external and internal rotation, without any significant increase in pain. He endorses full sensation over the femoral nerve. No pain to palpation of the belly or of the back. Objective Objective Clinical Data: Abnormal lab results 08/04/18 08/04/18 08/04/18 Range/Units 09:05 09:05 09:05 RBC 4.31 L (4.50-6.00) m/cumm Hgb 11.1 L (13.5-17.5) g/dL Hct 35.4 L (40.0-50.0) % MCH 25.8 L (27.0-33.0) pg MCHC 31.4 L (32.0-36.0) g/dL RDW 14.9 H (11.8-14.1) % C-Reactive Protein 7.96 H (0.0-0.3) mg/dL Vancomycin Trough 24.4 H* (10.0-20.0) ug/mL Vital Signs Temperature 37 C 08/04/18 14:45 Temperature Source Tympanic 08/04/18 14:45 Pulse 74 08/04/18 14:45 Pulse Rhythm Regular 08/04/18 15:59 Respiratory Rate 18 08/04/18 14:45 Respiratory Effort Non-Labored 08/04/18 15:59 Respiratory Depth Normal 08/04/18 15:59 Respiratory Pattern Normal 08/04/18 15:59 Blood Pressure 142/82 H 08/04/18 14:45 Blood Pressure Position Sitting 08/02/18 08:56 Pulse Oximetry 97 08/04/18 14:45 Respiratory End-tidal CO2 37 08/04/18 14:04 Oxygen Delivery Method Room Air 08/04/18 14:45 Oxygen Flow Rate 0 08/04/18 14:45 Pain Level 8 08/04/18 14:49 Comment 08/04/18 04:05 Intake & Output 08/03/18 08/04/18 08/04/18 23:59 11:59 23:59 Intake Total 1820 / 3480 600 / 8935.394 4498.333 / 1792.333 Output Total 50 / 50 Balance 1820 / 3480 600 / 7445.179 6562.333 / 1742.333 Intake: IV 1100 / 1720 600 / 1567.333 967.333 / 1567.333 Oral 720 / 1760 200 / 200 Injectate 25 / 25 Left Hip 25 / 25 Output: Estimated Blood Loss 50 / 50 Other: Comment pt voiding ad floresita in bathroom; urine not assessed at this time. pt denies GI/ issues pt voiding ad floresita in bathroom; urine not assessed at this time. pt denies GI/ issues Emesis Description None Voiding Methods Toilet Laboratory Results WBC 8.98 k/cumm (4.4-10.8) 08/04/18 09:05 RBC 4.31 m/cumm (4.50-6.00) L 08/04/18 09:05 Hgb 11.1 g/dL (13.5-17.5) L 08/04/18 09:05 Hct 35.4 % (40.0-50.0) L 08/04/18 09:05 MCV 82.1 fL (80-95) 08/04/18 09:05 MCH 25.8 pg (27.0-33.0) L 08/04/18 09:05 MCHC 31.4 g/dL (32.0-36.0) L 08/04/18 09:05 RDW 14.9 % (11.8-14.1) H 08/04/18 09:05 Plt Count 306 x1000/uL (130-400) 08/04/18 09:05 MPV 8.6 fL (8.0-11.0) 08/04/18 09:05 Immature Gran % 0.2 08/02/18 09:45 Neutrophils % 75.3 08/02/18 09:45 Lymphocytes % 15.6 08/02/18 09:45 Monocytes % 7.1 08/02/18 09:45 Eosinophils % 1.6 08/02/18 09:45 Basophils % 0.2 08/02/18 09:45 Absolute Neutrophils 7.17 k/cumm (1.2-6.7) H 08/02/18 09:45 Absolute Lymphocytes 1.49 k/cumm (1.2-3.4) 08/02/18 09:45 Absolute Monocytes 0.68 k/cumm (0.11-0.7) 08/02/18 09:45 Absolute Eosinophils 0.15 k/cumm (0.0-0.7) 08/02/18 09:45 Absolute Basophils 0.02 k/cumm (0.0-0.2) 08/02/18 09:45 ESR 94 MM/HR (0-15) H 08/02/18 09:45 Sodium 136 mmol/L (136-145) 08/04/18 09:05 Potassium 4.4 mmol/L (3.5-5.1) 08/04/18 09:05 Chloride 103 mmol/L (98-107) 08/04/18 09:05 Carbon Dioxide 26.9 mmol/L (21.0-32.0) 08/04/18 09:05 Anion Gap 6.1 mmol/L (3-11) 08/04/18 09:05 BUN 14 mg/dL (7-18) 08/04/18 09:05 Creatinine 1.23 mg/dL (0.70-1.30) 08/04/18 09:05 Estimated GFR/1.73 m2 >= 60.00 (mL/min/1.73m2) 08/04/18 09:05 Glucose 98 mg/dL (70-100) 08/04/18 09:05 Lactate 1.1 mmol/L (0.6-1.4) 08/02/18 09:45 Calcium 9.2 mg/dL (8.5-10.1) 08/04/18 09:05 Total Bilirubin 0.5 mg/dL (0.2-1.0) 08/02/18 09:45 AST 17 U/L (15-37) 08/02/18 09:45 ALT 19 U/L (12-78) 08/02/18 09:45 Alkaline Phosphatase 84 U/L (46-116) 08/02/18 09:45 Creatine Kinase 68 U/L (39-308) 08/02/18 09:45 C-Reactive Protein 7.96 mg/dL (0.0-0.3) H 08/04/18 09:05 Total Protein 8.0 g/dL (6.4-8.2) 08/02/18 09:45 Albumin 3.3 g/dL (3.4-5.0) L 08/02/18 09:45 Vancomycin Trough 24.4 ug/mL (10.0-20.0) H* 08/04/18 09:05
--- NOTE | 2018-08-04 20:25 | ROE_ITS ---
DATE OF SURGERY: August 04, 2018 PREOPERATIVE DIAGNOSIS: Left hip soft tissue infection, psoas abscess. POSTOPERATIVE DIAGNOSIS: Deep infection of the left hip, psoas abscess. SURGERY: Irrigation and debridement of left hip musculature and deep structures extending into the p kishore. SURGEON: Natanael Restrepo M.D. ASSISTANT PROFESSOR: Cata Glaser PA-C ANESTHESIA: General. FINDINGS: There was gross purulence seen underneath the sheath of the sartorius muscle. The infecti on had eroded through the majority of the sartorius muscle and was a track all the way deep to the le sser trochanter, psoas tendon, and into the pelvis. Fluid and tissue cultures were sent. Aggressive irrigation and debridement was performed. ESTIMATED BLOOD LOSS: 20 cc COMPLICATIONS: None. DISPOSITION: The patient was awakened from anesthesia and taken to the PACU in a stable condition. INDICATION FOR PROCEDURE: Jason is a 42-year-old who had spontaneous onset of left hip and thigh s welling and pain. He did have some subjective chills. His inflammatory markers were elevated. He d id have a previous infection about the left hip. CT scan did not show a fluid collection per report and, therefore, he was started on antibiotics. However, his symptoms did not improve. Given the per sistence of symptoms and the elevated inflammatory markers I did perform an MRI, which revealed a sig nificant amount of purulent material throughout the space of the left hip, originating and extending into the psoas tendon sheath. I discussed the treatment options with him at this point. I recommend ed urgent debridement. I reviewed the risks to include bleeding, persistent infection, damage to ner ves and vessels, need for repeat procedures, and blood clot. Despite these risks, he elected to proc eed. PROCEDURE DESCRIPTION: Jason was greeted in the preoperative holding area. Previously in the [facility] his identity was confirmed and marked. The consent was reviewed with the patient and signed. Th e History and Physical was previously updated. He was taken to the Operating Room and placed in the supine position on the hospital bed. A general anesthetic was administered. All bony prominences we re well padded. The left hip was prepped with ChloraPrep and draped in a standard fashion. A time-o ut was performed for safe surgery. Prophylactic antibiotics were held until initial cultures were obtained. The previous incision was m arked out on the skin. A 12-cm incision was made in the previous incision site. This was taken down through the skin. There was a notable amount of scar tissue seen throughout this area extending all the way down to the sheath of the anterior musculature. This was taken down sharply. There were no branches of the lateral femoral cutaneous nerve identified. The fascia of the sartorius was seen an d there was immediately seen an area of muscular dehiscence. This was seen through the fascia. When the fascia of the sartorius was opened up there was a notable decompression of purulent material. T his was a yellow-tinged purulent material which did not have any significant malodor. Two sets of cu lture samples were sent to the lab. My plan was to go through the true Blanc-Ball interval which would be between the TFL and the víctor torius. However, there was this natural rent in the muscle in this area. Therefore, we continued to go down this area. Blunt dissection through this defect in the sartorius immediately took us down t o the proximal femur. From this interval I was able to palpate the lesser trochanter as well as the iliopsoas tendon. I was able to palpate the capsule of the hip joint. Therefore, I retracted these soft tissues and performed an aggressive debridement in this area. I used both a rongeur and a curet te to remove significant amounts of necrotic-appearing infectious material. This was also sent for dayton scanlon. Three liters of irrigation were used to irrigate this area fully. I also focused on the int erval between the sartorius and the TFL to make sure there were no hidden pockets of purulence. With three liters of irrigation performed, I then further inspected. There was still seen some necrotic type tissue. This was removed. I was reluctant to be aggressive with any debridement medially as th ere was a neurovascular bundle medially. Normal anatomy was definitely obscured and the majority of the sartorius muscle appeared to be necrotic. This was debrided down until there was healthy bleedin g tissue. I once again inspected for any other signs of pockets or pus. There was notable extension somewhat down the femur about three fingerbreadths distal to the lesser trochanter. I was able to a lso follow the iliopsoas tendon into the pelvis and debrided this with a curette as well as my finger . Another three liters of normal saline were then used for aggressive debridement of the area. Ther e was no apparent violation of the hip joint once it was further inspected. A Bharat drain was left i n the deep portions of the wound. The deep tissue was closed with a #0 Vicryl followed by a #2-0 Sidney ryl. The skin was closed with a #2-0 Prolene. The drain was placed to bulb suction. The wound was anesthetized with 0.25% bupivacaine. The wound was dressed with Xeroform, 4x4s, ABD, and Medipore ta pe. At the end of the case all counts were correct. He was then awakened from anesthesia and taken to the PACU in a stable condition.
--- NOTE | 2018-08-04 23:56 | NUR.NOTE ---
Pt state he does not want the IV fluids because it makes him too restrictive. He was encouraged that he could get the fluids while he is in bed, but he said he still does not want it. The nursing structural steel erection supervisor was informed.
[2018-08-05] MEDS: VANCOMYCIN 1,500 MG in Normal Saline 500 ML 333.333 MG IVPB ×2 (00:11→19:28)
[2018-08-05] MEDS: Normal Saline Flush 10 ML SYR IVP ×8 (00:11→21:38)
[2018-08-05] MEDS: HYDROmorphone 2 MG/ML VIAL 0.5 MG IVP ×2 (00:36→16:00)
[2018-08-05] MEDS: Ketorolac 15 MG/ML VIAL IVP ×4 (02:11→19:29)
[2018-08-05] MEDS: Normal Saline Flush 10 ML SYR (02:37)
[2018-08-05] MEDS: PIPERACILLIN/TAZO 3.375 GM in Normal Saline 50 ML IVPB ×4 (03:40→21:37)
[2018-08-05] MEDS: Normal Saline 1,000 ML 80 ML IV (03:42)
[2018-08-05] MEDS: oxyCODONE 5 MG TAB PO ×4 (03:55→21:37)
[2018-08-05 04:00] VITALS: BP 136/81; PULSE 73; RESP 16; TEMP 36.9; O2SAT 98
[2018-08-05 07:27] LABS: HCT 31.6 % (40.0-50.0); HGB 10.1 g/dL (13.5-17.5); Mean Corpuscular Hemoglobin 26.9 pg (27.0-33.0); Mean Corpuscular Volume 84.3 fL (80-95); Mean Platelet Volume 8.8 fL (8.0-11.0); Platelet Count 269 x1000/uL (130-400); RBC 3.75 m/cumm (4.50-6.00); RBC Distribution Width 14.9 % (11.8-14.1); White Blood Cell Count 6.67 k/cumm (4.4-10.8)
[2018-08-05 07:45] LABS: Anion Gap 10.2 mmol/L (3-11); BUN 11 mg/dL (7-18); C-Reactive Protein 6.55 mg/dL (0.0-0.3); CO2 22.8 mmol/L (21.0-32.0); Calcium 7.6 mg/dL (8.5-10.1); Chloride 108 mmol/L (98-107); Glucose 95 mg/dL (70-100); Potassium 3.6 mmol/L (3.5-5.1); Sodium 141 mmol/L (136-145)
[2018-08-05] MEDS: Acetaminophen 500 MG TAB 1000 MG PO ×3 (07:57→19:30)
[2018-08-05 08:19] VITALS: BP 153/105; PULSE 83; RESP 16; TEMP 36.7; O2SAT 97
--- NOTE | 2018-08-05 10:11 | PDOC.CMPRO ---
Care Management Progress Note S/O: Jason was brought to the OR yesterday with Dr. Restrepo for irrigation and debriedment of his left hip area. Per MD, once cultures are available to identify sensitives and IV ABX-vs-oral are identified, Jason will be able to discharge home. He has [facility] and [facility] which should provide insurance coverage for home IV ABX if needed. CM will continue to follow. Jason was sitting in his chair when CM met with him, he processed current concerns and wanting to be home. He reported feeling that people did not like him. He shared that the current RN assigned to him, Thelma had been very informative and supportive and he felt more comfortable under her care. He processed feeling unsupported at his current PCP office due to a provider being unavailable and not reciveing returned calls resulting in him presenting to the ER which he reports being thankful for due to the finding of infection. CM validated his concerns and encouraged him to discuss with his counselor at [facility]; Camilla Pratt who he reports having a positive and productive relationship with. Jason reports a healthy support network in the community including friends and his brother and reports feeling he has what he needs to be successful in the community. He shares pride at being five and half year clean from recreational drugs and reports he has quit smoking recently and does not intend on drinking alcohol anymore as well. A: 42 y/o male admitted 08/02/18 for (L) hip soft tissue infection P: Jason will return home with no anticipated services once medically cleared. He will follow up with Dr. Restrepo and his plan of care as prescribed. CM will continue to support discharge planning considerations. Jason's friend/roommate Alonzo will transport via private vehicle when ready.
[2018-08-05] MEDS: VANCOMYCIN 1,500 MG in Normal Saline 500 ML 333 MG IVPB (10:34)
[2018-08-05 14:02] VITALS: BP 153/94; PULSE 89; RESP 16; TEMP 37.5; O2SAT 98
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
[2018-08-05 16:32] VITALS: BP 148/84; PULSE 77; RESP 20; TEMP 36.9; O2SAT 97
--- NOTE | 2018-08-05 16:34 | PGE_ITS ---
Date of Service Date of service: 08/05/18 Time of Service: 16:33 Assessment and Plan (1) Psoas abscess, left: Current visit: Yes Status: Acute Jason is a 42-year-old status post irrigation and debridement of the left psoas abscess. He is doing better in the type of pain describes. He has been very active day which I do think has led to some of the increasing pain. His drain output is decreasing although there is some purulent material. The current cultures are pending but do show gram-positive jacki. Jason is not systemically ill and therefore we continue antibiotic treatment. I am concerned he will need a secondary debridement. However, he would like to avoid this if possible. We will continue to follow the cultures and narrow down the antibiotics and hopefully be able switch to orals and have him discharged home shortly. Subjective Interval history since last seen: Jason reports having some increased pain today. He does describe the pain is different. It is not as full and is pressured as it was previously. He has been ambulating quite a bit. He is anxious to get home. He denies any fevers or chills. No nausea or vomiting. Exam Narrative Exam Narrative: Drain output was 50 cc. Evaluation of the left hip shows some serosanguineous drainage on the dressing. The dressing is changed. There is fullness of the left thigh but is compressible. This does cause some mild pain. The wound is otherwise intact. There is no fluctuance. There is no palpable mass except for fullness in the thigh. No expressible fluid. The drain has some purulent discharge in the drai n canister. Internal and external rotation with the knee extended causes no significant pain. Objective Objective Clinical Data: Abnormal lab results 08/05/18 08/05/18 Range/Units 06:50 06:50 RBC 3.75 L (4.50-6.00) m/cumm Hgb 10.1 L (13.5-17.5) g/dL Hct 31.6 L (40.0-50.0) % MCH 26.9 L (27.0-33.0) pg RDW 14.9 H (11.8-14.1) % Chloride 108 H (98-107) mmol/L Calcium 7.6 L (8.5-10.1) mg/dL C-Reactive Protein 6.55 H (0.0-0.3) mg/dL Vital Signs Temperature 36.9 C 08/05/18 16:32 Temperature Source Tympanic 08/05/18 16:32 Pulse 77 08/05/18 16:32 Pulse Rhythm Regular 08/05/18 15:33 Respiratory Rate 20 08/05/18 16:32 Respiratory Effort Non-Labored 08/05/18 15:33 Respiratory Depth Normal 08/05/18 15:33 Respiratory Pattern Normal 08/05/18 15:33 Blood Pressure 148/84 H 08/05/18 16:32 Blood Pressure Position Sitting 08/02/18 08:56 Pulse Oximetry 97 08/05/18 16:32 Respiratory End-tidal CO2 37 08/04/18 14:04 Oxygen Delivery Method Room Air 08/05/18 16:32 Oxygen Flow Rate 0 08/05/18 16:32 Pain Level 8 08/05/18 14:08 Comment 08/05/18 08:19 Intake & Output 08/04/18 08/05/18 08/05/18 23:59 11:59 23:59 Intake Total 2072.333 / 2672.333 2514.000 / 3294.000 780 / 3294.000 Output Total 105 / 105 50 / 50 Balance 1967.333 / 2567.333 2464.000 / 3244.000 780 / 3244.000 Intake: IV 1567.333 / 2167.333 1834.000 / 2334.000 500 / 2334.000 Oral 480 / 480 680 / 920 240 / 920 Injectate 25 / 25 40 / 40 Left Hip 25 / 25 40 / 40 Output: Drainage 55 / 55 50 / 50 Left Hip 55 / 55 50 / 50 Estimated Blood Loss 50 / 50 Other: Urine Appearance Clear Comment Void x1 in the toilet. pt voiding ad floresita; not assessed at this time Stool Size Moderate Stool Characteristics Soft Liquid Brown Emesis Description None Voiding Methods Toilet Toilet Toilet Laboratory Results WBC 6.67 k/cumm (4.4-10.8) 08/05/18 06:50 RBC 3.75 m/cumm (4.50-6.00) L 08/05/18 06:50 Hgb 10.1 g/dL (13.5-17.5) L 08/05/18 06:50 Hct 31.6 % (40.0-50.0) L 08/05/18 06:50 MCV 84.3 fL (80-95) 08/05/18 06:50 MCH 26.9 pg (27.0-33.0) L 08/05/18 06:50 MCHC 32.0 g/dL (32.0-36.0) 08/05/18 06:50 RDW 14.9 % (11.8-14.1) H 08/05/18 06:50 Plt Count 269 x1000/uL (130-400) 08/05/18 06:50 MPV 8.8 fL (8.0-11.0) 08/05/18 06:50 Immature Gran % 0.2 08/02/18 09:45 Neutrophils % 75.3 08/02/18 09:45 Lymphocytes % 15.6 08/02/18 09:45 Monocytes % 7.1 08/02/18 09:45 Eosinophils % 1.6 08/02/18 09:45 Basophils % 0.2 08/02/18 09:45 Absolute Neutrophils 7.17 k/cumm (1.2-6.7) H 08/02/18 09:45 Absolute Lymphocytes 1.49 k/cumm (1.2-3.4) 08/02/18 09:45 Absolute Monocytes 0.68 k/cumm (0.11-0.7) 08/02/18 09:45 Absolute Eosinophils 0.15 k/cumm (0.0-0.7) 08/02/18 09:45 Absolute Basophils 0.02 k/cumm (0.0-0.2) 08/02/18 09:45 ESR 94 MM/HR (0-15) H 08/02/18 09:45 Sodium 141 mmol/L (136-145) 08/05/18 06:50 Potassium 3.6 mmol/L (3.5-5.1) 08/05/18 06:50 Chloride 108 mmol/L (98-107) H 08/05/18 06:50 Carbon Dioxide 22.8 mmol/L (21.0-32.0) 08/05/18 06:50 Anion Gap 10.2 mmol/L (3-11) 08/05/18 06:50 BUN 11 mg/dL (7-18) 08/05/18 06:50 Creatinine 1.00 mg/dL (0.70-1.30) 08/05/18 06:50 Estimated GFR/1.73 m2 >= 60.00 (mL/min/1.73m2) 08/05/18 06:50 Glucose 95 mg/dL (70-100) 08/05/18 06:50 Lactate 1.1 mmol/L (0.6-1.4) 08/02/18 09:45 Calcium 7.6 mg/dL (8.5-10.1) L 08/05/18 06:50 Total Bilirubin 0.5 mg/dL (0.2-1.0) 08/02/18 09:45 AST 17 U/L (15-37) 08/02/18 09:45 ALT 19 U/L (12-78) 08/02/18 09:45 Alkaline Phosphatase 84 U/L (46-116) 08/02/18 09:45 Creatine Kinase 68 U/L (39-308) 08/02/18 09:45 C-Reactive Protein 6.55 mg/dL (0.0-0.3) H 08/05/18 06:50 Total Protein 8.0 g/dL (6.4-8.2) 08/02/18 09:45 Albumin 3.3 g/dL (3.4-5.0) L 08/02/18 09:45 Vancomycin Trough 24.4 ug/mL (10.0-20.0) H* 08/04/18 09:05
[2018-08-05 19:55] VITALS: BP 156/92; PULSE 74; RESP 19; TEMP 36.9; O2SAT 94
[2018-08-05 23:52] VITALS: BP 168/73; PULSE 77; RESP 18; TEMP 36.5; O2SAT 97
[2018-08-06] MEDS: Normal Saline Flush 10 ML SYR IVP ×5 (01:25→21:41)
[2018-08-06] MEDS: Ketorolac 15 MG/ML VIAL IVP ×3 (01:25→21:41)
[2018-08-06] MEDS: HYDROmorphone 2 MG/ML VIAL 0.5 MG IVP ×2 (01:25→20:33)
[2018-08-06] MEDS: PIPERACILLIN/TAZO 3.375 GM in Normal Saline 50 ML IVPB (03:54)
[2018-08-06 03:59] VITALS: BP 142/89; PULSE 68; RESP 17; TEMP 36; O2SAT 95
--- NOTE | 2018-08-06 05:30 | NUR.NOTE ---
Addendum entered by Edda Melara 08/06/18 06:31: called said to hold vaco if pt did not get labs drawn. Original Note: could not get morning labs of pt's midline. Jadon and myself tried IV flushed well, but could not get blood return. lab went in to get blood pt refused to get stuck by lab. CC. Mayorga notified.
[2018-08-06 07:10] LABS: HGB 10.5 g/dL (13.5-17.5); Mean Corp. HGB Concentration 30.9 g/dL (32.0-36.0); Mean Corpuscular Volume 84.2 fL (80-95); Mean Platelet Volume 8.6 fL (8.0-11.0); Platelet Count 291 x1000/uL (130-400); RBC 4.04 m/cumm (4.50-6.00); RBC Distribution Width 14.7 % (11.8-14.1); White Blood Cell Count 5.74 k/cumm (4.4-10.8)
[2018-08-06 07:26] LABS: Vancomycin, Trough 17.4 ug/mL (10.0-20.0)
[2018-08-06 07:27] LABS: C-Reactive Protein 5.86 mg/dL (0.0-0.3)
--- NOTE | 2018-08-06 07:36 | NUR.NOTE ---
Nursing Note: 0735: called Susannah at pharmacy to confirm vanco dose still effective. vanco resulted at 17.4. Susannah confirms dosing is correct and to administer as ordered.
[2018-08-06] MEDS: Acetaminophen 500 MG TAB 1000 MG PO ×3 (07:50→20:28)
[2018-08-06] MEDS: oxyCODONE 5 MG TAB PO ×3 (07:51→16:35)
[2018-08-06] MEDS: Ciprofloxacin 500 MG TAB 750 MG PO (10:01)
[2018-08-06 10:09] VITALS: BP 165/110; PULSE 84; RESP 18; TEMP 36.2; O2SAT 96
[2018-08-06 11:50] VITALS: BP 158/91; PULSE 89; RESP 24; TEMP 36.5; O2SAT 96
--- NOTE | 2018-08-06 14:27 | PDOC.CMPRO ---
- If Service Date Differs Date of service: 08/06/18 Time of Service: 14:27 Care Management Progress Note S/O: Jason is sitting up in his chair when this sign writer letterer or painter visits this morning. He is pleasant and receptive to discussion. Jason states that he is waiting for Dr. Restrepo to meet with him this afternoon as Jason states he wants to be discharged. Jason states today that he has been residing with a friend Mercedes throughout the week and his brother on the weekends, however states that the mattress is on the floor in one place and he sleeps on a futon at his brothers. Jason states that he is wanting to go to [facility] today in order to discuss housing options with them. Jason states that he has not spoken with [facility] as of yet and is wanting to go there today. Rhoda Renee, OWEN, is aware of the above. Dr. Restrepo states that he may be able to DC Jason today as he is on PO antibiotics at this time. A: 42 y/o male admitted 08/02/18 for (L) hip soft tissue infection P: Jason will meet with [facility] at time of DC to discuss housing options. He will follow up with Dr. Restrepo and his plan of care as prescribed. CM will continue to support discharge planning considerations. Jason's friend/roommate Alonzo will transport via private vehicle when ready.
--- NOTE | 2018-08-06 14:47 | CMPROGNOTE_ITS ---
- If Service Date Differs Date of service: 08/06/18 Time of Service: 14:27 Care Management Progress Note S/O: Jason is sitting up in his chair when this public relations writer visits this morning. He is pleasant and receptive to discussion. Jason states that he is waiting for Dr. Restrepo to meet with him this afternoon as Jason states he wants to be discharged. Jason states today that he has been residing with a friend Mercedes throughout the week and his brother on the weekends, however states that the mattress is on the floor in one place and he sleeps on a futon at his brothers. Jason states that he is wanting to go to [facility] today in order to discuss housing options with them. Jason states that he has not spoken with [facility] as of yet and is wanting to go there today. Rhoda Renee, OW[place], is aware of the above. Dr. Restrepo states that he may be able to DC Jason today as he is on PO antibiotics at this time. A: 42 y/o male admitted 08/02/18 for (L) hip soft tissue infection P: Jason will meet with [facility] at time of DC to discuss housing options. He will follow up with Dr. Restrepo and his plan of care as prescribed. CM will continue to support discharge planning considerations. Jason's friend/roommate Alonzo will transport via private vehicle when ready.
[2018-08-06] MEDS: ALPRAZolam 0.5 MG TAB PO (14:50)
--- NOTE | 2018-08-06 15:35 | CHAPLAIN ---
Jason was resting in bed when I visited. He shared some personal history including about his past drug addiction and smoking. He said he has been clean from drugs for five and a half years and has recently stopped smoking. In the morning, he often prays to be surrounded by God's judy and that carries him through the day, he said.
--- NOTE | 2018-08-06 15:42 | W.PM.PROGNOT ---
Date of Service Date of service: 08/05/18 Time of Service: 15:42 Assessment and Plan (1) Psoas abscess, left: Current visit: Yes Status: Acute Status post irrigation and debridement of the left psoas abscess. Less likely hematogenous spread as his blood cultures have yielded no growth thus far, making endocarditis also less likely. He denies IV drug use for several years and he does not have a cardiac murmur. He denies puncture wounds or joint injections. It would be more likely that this is a contiguous spread from a cellulitis related to either an abrasion from scratching or possibly the abrasion from his shoe on his left foot that was edematous and warm recently, both possible portal of entry. Echocardiogram could be considered if there is continued concern for endocarditis. He also has hardware in his lumbar spine which could raise the possibility of a paraspinal abscess, however, without new or worsening back pain, this is less likely, but one could still consider imaging of the lumbar spine. The patient is improving on the current treatment with IV Vanco and Zosyn. He will require long course of IV antibiotics regardless given the extent of the infection. Wound cultures are pending, they are growing rare gram positive jacki thus far. Continue to monitor wound cultures to guide therapy. Consider further imaging as above. Continue to monitor CRP. Will consult with ID for treatment recommendations. (2) Hepatitis C: Current visit: Yes Status: Chronic Continue treatment with Mavyret. (3) DVT prophylaxis: Current visit: Yes Status: Acute Not on chemical prophylaxis. He went to the OR yesterday. He has SCDs ordered, he is ambulating. Will defer to Ortho to initiate chemical prophylaxis as indicated. Subjective Interval history since last seen: He continues to have some pain in his left hip/thigh, more pain with ambulation. He has been ambulating frequently in the halls. He believes the swelling has improved. He denies any other concerns. No CHENG, SOB, cough, chest pain/pressure, he is eating and drinking well, no nausea, vomiting or diarrhea. He is eager for discharge, he was upset that he is not being discharged today. Exam Narrative Exam Narrative: General: Sitting up in bed, awake and alert, in NAD. Psyche: making good eye contact, answering questions appropriately HEENT: Normocephalic, atraumatic. pupils equal and round. MMM. edentulous on top. Neck: supple, no JVD, no lymphadenopathy. Respiratory: respirations even and unlabored, lung sounds CTA throughout. Cardiovascular: heart with regular rate and rhythm, no murmur appreciated, no clicks, gallops or rubs. GI: +bs x4, abdomen soft, nontender on palpation, no masses appreciated. Extremities: left anterior thigh with dressing with serosanguineous drainage, drain in place with bloody-ss drainage. The left thigh has swelling, no erythema surrounding dressing (dressing changed by ortho). Tenderness on palpation. ROM intact. Left foot without abrasion or erythema. Peripheral pulses palpable bilaterally. Objective Objective Clinical Data: Abnormal lab results 08/06/18 08/06/18 Range/Units 06:36 06:36 RBC 4.04 L (4.50-6.00) m/cumm Hgb 10.5 L (13.5-17.5) g/dL Hct 34.0 L (40.0-50.0) % MCH 26.0 L (27.0-33.0) pg MCHC 30.9 L (32.0-36.0) g/dL RDW 14.7 H (11.8-14.1) % C-Reactive Protein 5.86 H (0.0-0.3) mg/dL Vital Signs Temperature 36.5 C 08/06/18 11:50 Temperature Source Tympanic 08/06/18 11:50 Pulse 89 08/06/18 11:50 Pulse Rhythm Regular 08/06/18 08:16 Respiratory Rate 24 08/06/18 11:50 Respiratory Effort Non-Labored 08/06/18 08:16 Respiratory Depth Normal 08/06/18 08:16 Respiratory Pattern Normal 08/06/18 08:16 Blood Pressure 158/91 H 08/06/18 11:50 Blood Pressure Position Sitting 08/02/18 08:56 Pulse Oximetry 96 08/06/18 11:50 Respiratory End-tidal CO2 37 08/04/18 14:04 Oxygen Delivery Method Room Air 08/06/18 11:50 Oxygen Flow Rate 0 08/06/18 11:50 Pain Level 8 08/06/18 13:07 Comment 08/05/18 08:19 Intake & Output 08/05/18 08/06/18 08/06/18 23:59 11:59 23:59 Intake Total 1770 / 4284.000 190 / 430 240 / 430 Output Total 70 40 / 40 Balance 1750 / 4214.000 150 / 390 240 / 390 Intake: IV 1130 / 2964.000 70 / 70 Oral 600 / 1280 120 / 360 240 / 360 Injectate 40 / 40 Left Hip 40 / 40 Output: Drainage 40 / 40 Left Hip 40 / 40 Other: Urine Appearance Clear Clear Comment pt voiding ad darius; not assessed at this time pt gets up AD DARIUS to void. urine not assessed at this time Voiding Methods Toilet Toilet Toilet Laboratory Results WBC 5.74 k/cumm (4.4-10.8) 08/06/18 06:36 RBC 4.04 m/cumm (4.50-6.00) L 08/06/18 06:36 Hgb 10.5 g/dL (13.5-17.5) L 08/06/18 06:36 Hct 34.0 % (40.0-50.0) L 08/06/18 06:36 MCV 84.2 fL (80-95) 08/06/18 06:36 MCH 26.0 pg (27.0-33.0) L 08/06/18 06:36 MCHC 30.9 g/dL (32.0-36.0) L 08/06/18 06:36 RDW 14.7 % (11.8-14.1) H 08/06/18 06:36 Plt Count 291 x1000/uL (130-400) 08/06/18 06:36 MPV 8.6 fL (8.0-11.0) 08/06/18 06:36 Immature Gran % 0.2 08/02/18 09:45 Neutrophils % 75.3 08/02/18 09:45 Lymphocytes % 15.6 08/02/18 09:45 Monocytes % 7.1 08/02/18 09:45 Eosinophils % 1.6 08/02/18 09:45 Basophils % 0.2 08/02/18 09:45 Absolute Neutrophils 7.17 k/cumm (1.2-6.7) H 08/02/18 09:45 Absolute Lymphocytes 1.49 k/cumm (1.2-3.4) 08/02/18 09:45 Absolute Monocytes 0.68 k/cumm (0.11-0.7) 08/02/18 09:45 Absolute Eosinophils 0.15 k/cumm (0.0-0.7) 08/02/18 09:45 Absolute Basophils 0.02 k/cumm (0.0-0.2) 08/02/18 09:45 ESR 94 MM/HR (0-15) H 08/02/18 09:45 Sodium 141 mmol/L (136-145) 08/05/18 06:50 Potassium 3.6 mmol/L (3.5-5.1) 08/05/18 06:50 Chloride 108 mmol/L (98-107) H 08/05/18 06:50 Carbon Dioxide 22.8 mmol/L (21.0-32.0) 08/05/18 06:50 Anion Gap 10.2 mmol/L (3-11) 08/05/18 06:50 BUN 11 mg/dL (7-18) 08/05/18 06:50 Creatinine 1.00 mg/dL (0.70-1.30) 08/05/18 06:50 Estimated GFR/1.73 m2 >= 60.00 (mL/min/1.73m2) 08/05/18 06:50 Glucose 95 mg/dL (70-100) 08/05/18 06:50 Lactate 1.1 mmol/L (0.6-1.4) 08/02/18 09:45 Calcium 7.6 mg/dL (8.5-10.1) L 08/05/18 06:50 Total Bilirubin 0.5 mg/dL (0.2-1.0) 08/02/18 09:45 AST 17 U/L (15-37) 08/02/18 09:45 ALT 19 U/L (12-78) 08/02/18 09:45 Alkaline Phosphatase 84 U/L (46-116) 08/02/18 09:45 Creatine Kinase 68 U/L (39-308) 08/02/18 09:45 C-Reactive Protein 5.86 mg/dL (0.0-0.3) H 08/06/18 06:36 Total Protein 8.0 g/dL (6.4-8.2) 08/02/18 09:45 Albumin 3.3 g/dL (3.4-5.0) L 08/02/18 09:45 Vancomycin Trough 17.4 ug/mL (10.0-20.0) 08/06/18 06:36
[2018-08-06 16:40] VITALS: BP 161/103; PULSE 83; RESP 20; TEMP 37; O2SAT 94
--- NOTE | 2018-08-06 19:12 | W.PM.PROGNOT ---
Date of Service Date of service: 08/06/18 Time of Service: 19:12 Assessment and Plan (1) Psoas abscess, left: Current visit: Yes Status: Acute Status post irrigation and debridement of the left psoas abscess. Less likely hematogenous spread as his blood cultures have yielded no growth thus far, making endocarditis also less likely. He denies IV drug use for several years and he does not have a cardiac murmur. He denies puncture wounds or joint injections. It would be more likely that this is a contiguous spread from a local site. He also has hardware in his lumbar spine which could raise the possibility of a paraspinal abscess, however, without new or worsening back pain, this is less likely, but one could still consider imaging of the lumbar spine. The patient was improving on treatment with IV Vanco and Zosyn. CUrrent cultures growing Staph Aureus, likely MSSA - Antibiotics stepped down to Ancef. His CRP continues to improve. Continue to monitor wound cultures. Continue to monitor CRP. [facility] recommends 6 weeks of IV antibiotics if there is concern for osteomyelitis, regarding findings on MRI. ID agrees with IV Ancef q8h with repeat imaging in 2-3 weeks to ensure lack of disrete drainable sites. No recommendations for any further imaging such as ECHO or spine imaging with negative blood cultures. Would consider weekly safety labs and CRP while on antibiotic therapy. PICC line placed today. For repeat wash out in the morning. (2) Hepatitis C: Current visit: Yes Status: Chronic Continue treatment with Mavyret. (3) DVT prophylaxis: Current visit: Yes Status: Acute Not on chemical prophylaxis. He has SCDs ordered, he is ambulating frequently. Subjective Interval history since last seen: Mr. Cuevas reports feeling generally unwell today, he reports chills and nausea. He has aches all over his body today. He continues to have left thigh/hip pain. He continues to ambulate frequently. He is eating and drinking well despite the nausea. IV access was lost and he required PICC line placement today. He denies chest pain/pressure, shortness of breath, cough, wheezing, abdominal pain, he does feel anxious at times. Exam Narrative Exam Narrative: General: Sitting up in bed, awake and alert, in NAD. Psyche: making good eye contact, answering questions appropriately HEENT: Normocephalic, atraumatic. pupils equal and round. MMM. edentulous on top. Neck: supple, no JVD, no lymphadenopathy. Respiratory: respirations even and unlabored, lung sounds CTA throughout. Cardiovascular: heart with regular rate and rhythm, no murmur appreciated, no clicks, gallops or rubs. GI: +bs x4, abdomen soft, nontender on palpation, no masses appreciated. Extremities: left anterior thigh with dressing with pink/yellow drainage under, drain in place with bloody, purulent drainage. The left thigh has with less swelling, no erythema surrounding dressing. Tenderness on palpation. ROM intact. Left foot without abrasion or erythema. Peripheral pulses palpable bilaterally. Objective Objective Clinical Data: Abnormal lab results 08/06/18 08/06/18 Range/Units 06:36 06:36 RBC 4.04 L (4.50-6.00) m/cumm Hgb 10.5 L (13.5-17.5) g/dL Hct 34.0 L (40.0-50.0) % MCH 26.0 L (27.0-33.0) pg MCHC 30.9 L (32.0-36.0) g/dL RDW 14.7 H (11.8-14.1) % C-Reactive Protein 5.86 H (0.0-0.3) mg/dL Vital Signs Temperature 37.0 C 08/06/18 16:40 Temperature Source Tympanic 08/06/18 16:40 Pulse 83 08/06/18 16:40 Pulse Rhythm Regular 08/06/18 17:13 Respiratory Rate 20 08/06/18 16:40 Respiratory Effort 08/06/18 17:13 Respiratory Depth Normal 08/06/18 17:13 Respiratory Pattern Normal 08/06/18 17:13 Blood Pressure 161/103 H 08/06/18 16:40 Blood Pressure Position Sitting 08/02/18 08:56 Pulse Oximetry 94 L 08/06/18 16:40 Respiratory End-tidal CO2 37 08/04/18 14:04 Oxygen Delivery Method Room Air 08/06/18 16:40 Oxygen Flow Rate 0 08/06/18 16:40 Pain Level 5 08/06/18 16:35 Comment 08/05/18 08:19 Intake & Output 08/05/18 08/06/18 08/06/18 23:59 11:59 23:59 Intake Total 1770 / 4284.000 190 / 430 240 / 430 Output Total 40 / 40 Balance 1750 / 4214.000 150 / 390 240 / 390 Intake: IV 1130 / 2964.000 70 / 70 Oral 600 / 1280 120 / 360 240 / 360 Injectate 40 / 40 Left Hip 40 / 40 Output: Drainage 40 / 40 Left Hip 40 / 40 Other: Urine Appearance Clear Clear Clear Comment pt voiding ad darius; not assessed at this time pt gets up AD DARIUS to void. urine not assessed at this time Voiding Methods Toilet Toilet Toilet Laboratory Results WBC 5.74 k/cumm (4.4-10.8) 08/06/18 06:36 RBC 4.04 m/cumm (4.50-6.00) L 08/06/18 06:36 Hgb 10.5 g/dL (13.5-17.5) L 08/06/18 06:36 Hct 34.0 % (40.0-50.0) L 08/06/18 06:36 MCV 84.2 fL (80-95) 08/06/18 06:36 MCH 26.0 pg (27.0-33.0) L 08/06/18 06:36 MCHC 30.9 g/dL (32.0-36.0) L 08/06/18 06:36 RDW 14.7 % (11.8-14.1) H 08/06/18 06:36 Plt Count 291 x1000/uL (130-400) 08/06/18 06:36 MPV 8.6 fL (8.0-11.0) 08/06/18 06:36 Immature Gran % 0.2 08/02/18 09:45 Neutrophils % 75.3 08/02/18 09:45 Lymphocytes % 15.6 08/02/18 09:45 Monocytes % 7.1 08/02/18 09:45 Eosinophils % 1.6 08/02/18 09:45 Basophils % 0.2 08/02/18 09:45 Absolute Neutrophils 7.17 k/cumm (1.2-6.7) H 08/02/18 09:45 Absolute Lymphocytes 1.49 k/cumm (1.2-3.4) 08/02/18 09:45 Absolute Monocytes 0.68 k/cumm (0.11-0.7) 08/02/18 09:45 Absolute Eosinophils 0.15 k/cumm (0.0-0.7) 08/02/18 09:45 Absolute Basophils 0.02 k/cumm (0.0-0.2) 08/02/18 09:45 ESR 94 MM/HR (0-15) H 08/02/18 09:45 Sodium 141 mmol/L (136-145) 08/05/18 06:50 Potassium 3.6 mmol/L (3.5-5.1) 08/05/18 06:50 Chloride 108 mmol/L (98-107) H 08/05/18 06:50 Carbon Dioxide 22.8 mmol/L (21.0-32.0) 08/05/18 06:50 Anion Gap 10.2 mmol/L (3-11) 08/05/18 06:50 BUN 11 mg/dL (7-18) 08/05/18 06:50 Creatinine 1.00 mg/dL (0.70-1.30) 08/05/18 06:50 Estimated GFR/1.73 m2 >= 60.00 (mL/min/1.73m2) 08/05/18 06:50 Glucose 95 mg/dL (70-100) 08/05/18 06:50 Lactate 1.1 mmol/L (0.6-1.4) 08/02/18 09:45 Calcium 7.6 mg/dL (8.5-10.1) L 08/05/18 06:50 Total Bilirubin 0.5 mg/dL (0.2-1.0) 08/02/18 09:45 AST 17 U/L (15-37) 08/02/18 09:45 ALT 19 U/L (12-78) 08/02/18 09:45 Alkaline Phosphatase 84 U/L (46-116) 08/02/18 09:45 Creatine Kinase 68 U/L (39-308) 08/02/18 09:45 C-Reactive Protein 5.86 mg/dL (0.0-0.3) H 08/06/18 06:36 Total Protein 8.0 g/dL (6.4-8.2) 08/02/18 09:45 Albumin 3.3 g/dL (3.4-5.0) L 08/02/18 09:45 Vancomycin Trough 17.4 ug/mL (10.0-20.0) 08/06/18 06:36
--- NOTE | 2018-08-06 19:50 | W.PM.PROGNOT ---
Date of Service Date of service: 08/06/18 Time of Service: 17:51 Assessment and Plan (1) Psoas abscess, left: Current visit: Yes Status: Acute Jason is POD#2 s/p I&D of a large abscess of the left hip/thigh, likely originating from the psoas. He was making some subtle gains but has had a downward turn today. He has more purulent discharge into the drain with 40cc out in the past 12 hours. New access was obtained with a PICC line so we will resume antibiotics. Initial micro results suggests MSSA, so his antibiotics were switched to Cefazolin 2g Q8hr. Appreciate hospitalist consult. At this time, with negative blood cultures, we will forego any further heart or back workup. Due to the increase in purulent drainage and the worsening of his symptoms, I believe we will need to wash this out again. I will keep him NPO tonight after midnight and re-evaluate in the morning with likely return to the OR. Subjective Interval history since last seen: Jason has had some increasing pain and nausea today. This morning, he reported not feeling well, but he does feel better now. His midline failed and he did require PICC line for access to resume IV antibiotics. A hospital consult was made. He reports pain throughout the thigh and even in the LLQ area. He denies any back pain. No chest pain. +Chills but no documented fevers. Exam Narrative Exam Narrative: Appears uncomfortable in the AM. A revisit this evening shows him to have more color and appear more comfortable. Evaluate of the L hip shows mild amounts of serosanguinous drainge on the dressing but the drain does have some purulent material. He has significant fullness to the proximal thigh. He has pain to palpation. He does continue to tolerate ER/IR of the leg without increase in pain. New today is some tenderness to palpation of the inguinal region and into the LLQ. Only mild pain in the RLQ but no rebound and no gaurding. Objective Objective Clinical Data: Abnormal lab results 08/06/18 08/06/18 Range/Units 06:36 06:36 RBC 4.04 L (4.50-6.00) m/cumm Hgb 10.5 L (13.5-17.5) g/dL Hct 34.0 L (40.0-50.0) % MCH 26.0 L (27.0-33.0) pg MCHC 30.9 L (32.0-36.0) g/dL RDW 14.7 H (11.8-14.1) % C-Reactive Protein 5.86 H (0.0-0.3) mg/dL Vital Signs Temperature 37.0 C 08/06/18 16:40 Temperature Source Tympanic 08/06/18 16:40 Pulse 83 08/06/18 16:40 Pulse Rhythm Regular 08/06/18 17:13 Respiratory Rate 20 08/06/18 16:40 Respiratory Effort 08/06/18 17:13 Respiratory Depth Normal 08/06/18 17:13 Respiratory Pattern Normal 08/06/18 17:13 Blood Pressure 161/103 H 08/06/18 16:40 Blood Pressure Position Sitting 08/02/18 08:56 Pulse Oximetry 94 L 08/06/18 16:40 Respiratory End-tidal CO2 37 08/04/18 14:04 Oxygen Delivery Method Room Air 08/06/18 16:40 Oxygen Flow Rate 0 08/06/18 16:40 Pain Level 5 08/06/18 16:35 Comment 08/05/18 08:19 Intake & Output 08/05/18 08/06/18 08/06/18 23:59 11:59 23:59 Intake Total 1770 / 4284.000 190 / 480 290 / 480 Output Total 20 / 70 40 / 40 Balance 1750 / 4214.000 150 / 440 290 / 440 Intake: IV 1130 / 2964.000 70 / 120 50 / 120 Oral 600 / 1280 120 / 360 240 / 360 Injectate 40 / 40 Left Hip 40 / 40 Output: Drainage 20 / 70 40 / 40 Left Hip 20 / 70 40 / 40 Other: Urine Appearance Clear Clear Clear Comment pt voiding ad darius; not assessed at this time pt gets up AD DARIUS to void. urine not assessed at this time Voiding Methods Toilet Toilet Toilet Laboratory Results WBC 5.74 k/cumm (4.4-10.8) 08/06/18 06:36 RBC 4.04 m/cumm (4.50-6.00) L 08/06/18 06:36 Hgb 10.5 g/dL (13.5-17.5) L 08/06/18 06:36 Hct 34.0 % (40.0-50.0) L 08/06/18 06:36 MCV 84.2 fL (80-95) 08/06/18 06:36 MCH 26.0 pg (27.0-33.0) L 08/06/18 06:36 MCHC 30.9 g/dL (32.0-36.0) L 08/06/18 06:36 RDW 14.7 % (11.8-14.1) H 08/06/18 06:36 Plt Count 291 x1000/uL (130-400) 08/06/18 06:36 MPV 8.6 fL (8.0-11.0) 08/06/18 06:36 Immature Gran % 0.2 08/02/18 09:45 Neutrophils % 75.3 08/02/18 09:45 Lymphocytes % 15.6 08/02/18 09:45 Monocytes % 7.1 08/02/18 09:45 Eosinophils % 1.6 08/02/18 09:45 Basophils % 0.2 08/02/18 09:45 Absolute Neutrophils 7.17 k/cumm (1.2-6.7) H 08/02/18 09:45 Absolute Lymphocytes 1.49 k/cumm (1.2-3.4) 08/02/18 09:45 Absolute Monocytes 0.68 k/cumm (0.11-0.7) 08/02/18 09:45 Absolute Eosinophils 0.15 k/cumm (0.0-0.7) 08/02/18 09:45 Absolute Basophils 0.02 k/cumm (0.0-0.2) 08/02/18 09:45 ESR 94 MM/HR (0-15) H 08/02/18 09:45 Sodium 141 mmol/L (136-145) 08/05/18 06:50 Potassium 3.6 mmol/L (3.5-5.1) 08/05/18 06:50 Chloride 108 mmol/L (98-107) H 08/05/18 06:50 Carbon Dioxide 22.8 mmol/L (21.0-32.0) 08/05/18 06:50 Anion Gap 10.2 mmol/L (3-11) 08/05/18 06:50 BUN 11 mg/dL (7-18) 08/05/18 06:50 Creatinine 1.00 mg/dL (0.70-1.30) 08/05/18 06:50 Estimated GFR/1.73 m2 >= 60.00 (mL/min/1.73m2) 08/05/18 06:50 Glucose 95 mg/dL (70-100) 08/05/18 06:50 Lactate 1.1 mmol/L (0.6-1.4) 08/02/18 09:45 Calcium 7.6 mg/dL (8.5-10.1) L 08/05/18 06:50 Total Bilirubin 0.5 mg/dL (0.2-1.0) 08/02/18 09:45 AST 17 U/L (15-37) 08/02/18 09:45 ALT 19 U/L (12-78) 08/02/18 09:45 Alkaline Phosphatase 84 U/L (46-116) 08/02/18 09:45 Creatine Kinase 68 U/L (39-308) 08/02/18 09:45 C-Reactive Protein 5.86 mg/dL (0.0-0.3) H 08/06/18 06:36 Total Protein 8.0 g/dL (6.4-8.2) 08/02/18 09:45 Albumin 3.3 g/dL (3.4-5.0) L 08/02/18 09:45 Vancomycin Trough 17.4 ug/mL (10.0-20.0) 08/06/18 06:36
[2018-08-06 20:45] VITALS: BP 135/88; PULSE 82; RESP 19; TEMP 36.8; O2SAT 95
[2018-08-07] VITALS (11 sets, daily range): BP systolic 119–156; BP diastolic 74–100; PULSE 58–92; RESP 13–22; TEMP 36.3–36.7; O2SAT 94–97
[2018-08-07] MEDS: Normal Saline Flush 10 ML SYR IVP ×8 (00:33→22:06)
[2018-08-07] MEDS: HYDROmorphone 2 MG/ML VIAL 0.5 MG IVP ×4 (00:33→19:50)
[2018-08-07] MEDS: Ketorolac 15 MG/ML VIAL IVP ×3 (04:08→22:05)
[2018-08-07 07:19] LABS: HCT 34.6 % (40.0-50.0); HGB 10.7 g/dL (13.5-17.5); Mean Corp. HGB Concentration 30.9 g/dL (32.0-36.0); Mean Corpuscular Hemoglobin 26.3 pg (27.0-33.0); Mean Platelet Volume 8.8 fL (8.0-11.0); Platelet Count 326 x1000/uL (130-400); RBC 4.07 m/cumm (4.50-6.00); White Blood Cell Count 7.15 k/cumm (4.4-10.8)
[2018-08-07 07:30] LABS: C-Reactive Protein 5.25 mg/dL (0.0-0.3)
--- NOTE | 2018-08-07 07:42 | W.PM.PROGNOT ---
Date of Service Date of service: 08/07/18 Time of Service: 07:42 Assessment and Plan (1) Psoas abscess, left: Current visit: Yes Status: Acute Jason is a 42yo with a left psoas abscess. Unfortunately, he has not made the turn I would hope for with continued pain, malaise, feeling ill, and purulent drainage. He is now on more specifric antibiotics but given this constellation of symptoms and findings, I recommended return to the OR for repeat washout. This is not necessarily unexpected given the amount of purulence encountered on the first visit. I reviewed the risks with Jason to include bleeding, persistent infection, need for repeat procedures, damage to nerves and vessels, pain and stiffness. He agrees to proceed. Hold PO meds this AM. Give IV Protonix. NPO. To OR. Subjective Interval history since last seen: Jason reports to still not be feeling that well. He denies any fevers but has had some chills and persistent malaise. He reports pain in the left hip, lower belly, and groin. No difficulty with urinating. No nausea currently and no vomiting. Exam Narrative Exam Narrative: Laying supine in the recliner. Appears ill. LLE dressing has serosanguinous discharge. The drain has about 20cc of purulent material in the bulb syringe. There is pain to palpation of the hip and the groin and the LLQ. No pain with hip ROM passively. Foot is WWP, palpable DP/PT Objective Objective Clinical Data: Abnormal lab results 08/07/18 08/07/18 Range/Units 06:45 06:45 RBC 4.07 L (4.50-6.00) m/cumm Hgb 10.7 L (13.5-17.5) g/dL Hct 34.6 L (40.0-50.0) % MCH 26.3 L (27.0-33.0) pg MCHC 30.9 L (32.0-36.0) g/dL RDW 15.0 H (11.8-14.1) % C-Reactive Protein 5.25 H (0.0-0.3) mg/dL Vital Signs Temperature 36.3 C L 08/07/18 00:32 Temperature Source Tympanic 08/07/18 00:32 Pulse 77 08/07/18 00:32 Pulse Rhythm Regular 08/06/18 19:18 Respiratory Rate 18 08/07/18 00:32 Respiratory Effort 08/06/18 19:18 Respiratory Depth Normal 08/06/18 19:18 Respiratory Pattern Normal 08/06/18 19:18 Blood Pressure 119/74 08/07/18 00:32 Blood Pressure Position Sitting 08/02/18 08:56 Pulse Oximetry 94 L 08/07/18 00:32 Respiratory End-tidal CO2 37 08/04/18 14:04 Oxygen Delivery Method Room Air 08/07/18 00:32 Oxygen Flow Rate 0 08/07/18 00:32 Pain Level 5 08/07/18 07:38 Comment 08/05/18 08:19 Intake & Output 08/06/18 08/06/18 08/07/18 11:59 23:59 11:59 Intake Total 190 / 1070 880 / 1070 Output Total 40 / 40 10 / 10 Balance 150 / 1030 880 / 1030 -10 / -10 Intake: IV 70 / 210 140 / 210 Oral 120 / 860 740 / 860 Output: Drainage 40 / 40 10 / 10 Left Hip 40 / 40 10 / 10 Other: Urine Appearance Clear Clear Comment pt gets up AD DARIUS to void. urine not assessed at this time Voiding Methods Toilet Toilet Laboratory Results WBC 7.15 k/cumm (4.4-10.8) 08/07/18 06:45 RBC 4.07 m/cumm (4.50-6.00) L 08/07/18 06:45 Hgb 10.7 g/dL (13.5-17.5) L 08/07/18 06:45 Hct 34.6 % (40.0-50.0) L 08/07/18 06:45 MCV 85.0 fL (80-95) 08/07/18 06:45 MCH 26.3 pg (27.0-33.0) L 08/07/18 06:45 MCHC 30.9 g/dL (32.0-36.0) L 08/07/18 06:45 RDW 15.0 % (11.8-14.1) H 08/07/18 06:45 Plt Count 326 x1000/uL (130-400) 08/07/18 06:45 MPV 8.8 fL (8.0-11.0) 08/07/18 06:45 Immature Gran % 0.2 08/02/18 09:45 Neutrophils % 75.3 08/02/18 09:45 Lymphocytes % 15.6 08/02/18 09:45 Monocytes % 7.1 08/02/18 09:45 Eosinophils % 1.6 08/02/18 09:45 Basophils % 0.2 08/02/18 09:45 Absolute Neutrophils 7.17 k/cumm (1.2-6.7) H 08/02/18 09:45 Absolute Lymphocytes 1.49 k/cumm (1.2-3.4) 08/02/18 09:45 Absolute Monocytes 0.68 k/cumm (0.11-0.7) 08/02/18 09:45 Absolute Eosinophils 0.15 k/cumm (0.0-0.7) 08/02/18 09:45 Absolute Basophils 0.02 k/cumm (0.0-0.2) 08/02/18 09:45 ESR 94 MM/HR (0-15) H 08/02/18 09:45 Sodium 141 mmol/L (136-145) 08/05/18 06:50 Potassium 3.6 mmol/L (3.5-5.1) 08/05/18 06:50 Chloride 108 mmol/L (98-107) H 08/05/18 06:50 Carbon Dioxide 22.8 mmol/L (21.0-32.0) 08/05/18 06:50 Anion Gap 10.2 mmol/L (3-11) 08/05/18 06:50 BUN 11 mg/dL (7-18) 08/05/18 06:50 Creatinine 1.00 mg/dL (0.70-1.30) 08/05/18 06:50 Estimated GFR/1.73 m2 >= 60.00 (mL/min/1.73m2) 08/05/18 06:50 Glucose 95 mg/dL (70-100) 08/05/18 06:50 Lactate 1.1 mmol/L (0.6-1.4) 08/02/18 09:45 Calcium 7.6 mg/dL (8.5-10.1) L 08/05/18 06:50 Total Bilirubin 0.5 mg/dL (0.2-1.0) 08/02/18 09:45 AST 17 U/L (15-37) 08/02/18 09:45 ALT 19 U/L (12-78) 08/02/18 09:45 Alkaline Phosphatase 84 U/L (46-116) 08/02/18 09:45 Creatine Kinase 68 U/L (39-308) 08/02/18 09:45 C-Reactive Protein 5.25 mg/dL (0.0-0.3) H 08/07/18 06:45 Total Protein 8.0 g/dL (6.4-8.2) 08/02/18 09:45 Albumin 3.3 g/dL (3.4-5.0) L 08/02/18 09:45 Vancomycin Trough 17.4 ug/mL (10.0-20.0) 08/06/18 06:36
[2018-08-07] MEDS: Lactated Ringers 1,000 ML 80 ML IV ×2 (08:46→12:18)
[2018-08-07] MEDS: fentaNYL 100 MCG/2 ML VIAL IVP (11:26)
--- NOTE | 2018-08-07 11:32 | PDOC.CMPRO ---
- If Service Date Differs Date of service: 08/07/18 Time of Service: 11:32 Care Management Progress Note S/O: Jason to return to the OR today for a repeat washout. CM attempted to meet with him this morning, however he had already gone to the OR for the procedure with Dr. Restrepo. Per morning meeting Jason now has a PICC line in place and is receiving IV antibiotics. Unsure as of this time as to how long Jason will require IV antibiotics. A: 42 y/o male admitted 08/02/18 for (L) hip soft tissue infection P: Jason will meet with [employer] at time of DC to discuss housing options. He will follow up with Dr. Restrepo and his plan of care as prescribed. CM will continue to support discharge planning considerations. Jason's friend/roommate Alonzo will transport via private vehicle when ready.
[2018-08-07] MEDS: oxyCODONE 5 MG TAB PO ×2 (12:18→15:14)
[2018-08-07] MEDS: Normal Saline 500 ML 100 ML IV (13:49)
[2018-08-07] MEDS: Acetaminophen 500 MG TAB 1000 MG PO ×2 (13:50→19:49)
--- NOTE | 2018-08-07 18:41 | W.PM.PROGNOT ---
Date of Service Date of service: 08/07/18 Time of Service: 16:00 Assessment and Plan (1) Psoas abscess, left: Current visit: Yes Status: Acute Status post irrigation and debridement of the left psoas abscess x 2, MSSA in cx. Continue ancef IV via PICC. No evidence for hematogenous spread or current IVD use. Continue to monitor CRP. Will need a total of 6 weeks of IV abx if OM is suspected, per [facility] - Dr Restrepo is leaning against it. Will need follow up imagining. (2) Hepatitis C: Current visit: Yes Status: Chronic Continue Mavyret. (3) DVT prophylaxis: Current visit: Yes Status: Acute Not on chemical prophylaxis. Continue SCD's Subjective Interval history since last seen: Mr Cuevas is s/p repeat washout of his hip/abscess today. Per Dr Restrepo, most of what came out was old nectrotic tissue, not so much purulent material. The patient states that his pain is controlled, he is able to walk on the hip. Denies dizziness, complains of chest pain which is reproduced with palpation and a certain movement of left arm, denies nausea, vomiting. Exam Narrative Exam Narrative: General: pale, very pleasant male, joking with me, sitting comfortably in a chair HEENT; EOMI, MMM Heart: RRR, no m/r/g Lungs: CTAB GI: abdomen is soft, nontender, nondistended Extremities: L hip dressed; with drain in place, serosanguenous drainage - about 5 cc - in the bulb Objective Objective Clinical Data: Abnormal lab results 08/07/18 08/07/18 Range/Units 06:45 06:45 RBC 4.07 L (4.50-6.00) m/cumm Hgb 10.7 L (13.5-17.5) g/dL Hct 34.6 L (40.0-50.0) % MCH 26.3 L (27.0-33.0) pg MCHC 30.9 L (32.0-36.0) g/dL RDW 15.0 H (11.8-14.1) % C-Reactive Protein 5.25 H (0.0-0.3) mg/dL Vital Signs Temperature 36.4 C L 08/07/18 15:28 Temperature Source Tympanic 08/07/18 15:28 Pulse 77 08/07/18 15:28 Pulse Rhythm Regular 08/07/18 07:38 Respiratory Rate 20 08/07/18 15:28 Respiratory Effort Non-Labored 08/07/18 07:38 Respiratory Depth Normal 08/07/18 07:38 Respiratory Pattern Normal 08/07/18 07:38 Blood Pressure 130/76 08/07/18 15:28 Blood Pressure Position Sitting 08/02/18 08:56 Pulse Oximetry 96 08/07/18 15:28 Respiratory End-tidal CO2 12 08/07/18 11:30 Oxygen Delivery Method Room Air 08/07/18 15:28 Oxygen Flow Rate 0 08/07/18 15:28 Pain Level 5 08/07/18 16:15 Comment 08/05/18 08:19 Intake & Output 08/06/18 08/07/18 08/07/18 23:59 11:59 23:59 Intake Total 880 / 1070 850 / 1708.667 858.667 / 1708.667 Output Total 50 / 680 630 / 680 Balance 880 / 1030 800 / 1028.667 228.667 / 1028.667 Intake: IV 140 / 210 850 / 1228.667 378.667 / 1228.667 Oral 740 / 860 480 / 480 Output: Drainage 30 / 60 30 / 60 Left Hip 30 / 60 30 / 60 Urine 600 / 600 Estimated Blood Loss Other: Urine Color Yellow Straw Urine Appearance Clear Clear Clear Urine Odor None None Comment urine not assessed at this time Void x1 in the toilet. Void x1 in the toilet. Stool Size Moderate Stool Characteristics Soft Formed Brown Emesis Description None Voiding Methods Toilet Toilet Toilet Laboratory Results WBC 7.15 k/cumm (4.4-10.8) 08/07/18 06:45 RBC 4.07 m/cumm (4.50-6.00) L 08/07/18 06:45 Hgb 10.7 g/dL (13.5-17.5) L 08/07/18 06:45 Hct 34.6 % (40.0-50.0) L 08/07/18 06:45 MCV 85.0 fL (80-95) 08/07/18 06:45 MCH 26.3 pg (27.0-33.0) L 08/07/18 06:45 MCHC 30.9 g/dL (32.0-36.0) L 08/07/18 06:45 RDW 15.0 % (11.8-14.1) H 08/07/18 06:45 Plt Count 326 x1000/uL (130-400) 08/07/18 06:45 MPV 8.8 fL (8.0-11.0) 08/07/18 06:45 Immature Gran % 0.2 08/02/18 09:45 Neutrophils % 75.3 08/02/18 09:45 Lymphocytes % 15.6 08/02/18 09:45 Monocytes % 7.1 08/02/18 09:45 Eosinophils % 1.6 08/02/18 09:45 Basophils % 0.2 08/02/18 09:45 Absolute Neutrophils 7.17 k/cumm (1.2-6.7) H 08/02/18 09:45 Absolute Lymphocytes 1.49 k/cumm (1.2-3.4) 08/02/18 09:45 Absolute Monocytes 0.68 k/cumm (0.11-0.7) 08/02/18 09:45 Absolute Eosinophils 0.15 k/cumm (0.0-0.7) 08/02/18 09:45 Absolute Basophils 0.02 k/cumm (0.0-0.2) 08/02/18 09:45 ESR 94 MM/HR (0-15) H 08/02/18 09:45 Sodium 141 mmol/L (136-145) 08/05/18 06:50 Potassium 3.6 mmol/L (3.5-5.1) 08/05/18 06:50 Chloride 108 mmol/L (98-107) H 08/05/18 06:50 Carbon Dioxide 22.8 mmol/L (21.0-32.0) 08/05/18 06:50 Anion Gap 10.2 mmol/L (3-11) 08/05/18 06:50 BUN 11 mg/dL (7-18) 08/05/18 06:50 Creatinine 1.00 mg/dL (0.70-1.30) 08/05/18 06:50 Estimated GFR/1.73 m2 >= 60.00 (mL/min/1.73m2) 08/05/18 06:50 Glucose 95 mg/dL (70-100) 08/05/18 06:50 Lactate 1.1 mmol/L (0.6-1.4) 08/02/18 09:45 Calcium 7.6 mg/dL (8.5-10.1) L 08/05/18 06:50 Total Bilirubin 0.5 mg/dL (0.2-1.0) 08/02/18 09:45 AST 17 U/L (15-37) 08/02/18 09:45 ALT 19 U/L (12-78) 08/02/18 09:45 Alkaline Phosphatase 84 U/L (46-116) 08/02/18 09:45 Creatine Kinase 68 U/L (39-308) 08/02/18 09:45 C-Reactive Protein 5.25 mg/dL (0.0-0.3) H 08/07/18 06:45 Total Protein 8.0 g/dL (6.4-8.2) 08/02/18 09:45 Albumin 3.3 g/dL (3.4-5.0) L 08/02/18 09:45 Vancomycin Trough 17.4 ug/mL (10.0-20.0) 08/06/18 06:36
[2018-08-08] VITALS (7 sets, daily range): BP systolic 125–157; BP diastolic 78–108; PULSE 56–90; RESP 16–20; TEMP 36–37.1; O2SAT 94–98
[2018-08-08] MEDS: Ketorolac 15 MG/ML VIAL IVP ×4 (03:52→22:32)
[2018-08-08] MEDS: Normal Saline Flush 10 ML SYR IVP ×6 (03:53→22:32)
[2018-08-08] MEDS: HYDROmorphone 2 MG/ML VIAL 0.5 MG IVP ×2 (04:07→19:29)
[2018-08-08 06:14] LABS: HCT 32.1 % (40.0-50.0); HGB 10.1 g/dL (13.5-17.5); Mean Corp. HGB Concentration 31.5 g/dL (32.0-36.0); Mean Corpuscular Hemoglobin 26.5 pg (27.0-33.0); Mean Corpuscular Volume 84.3 fL (80-95); Platelet Count 330 x1000/uL (130-400); RBC 3.81 m/cumm (4.50-6.00); RBC Distribution Width 14.8 % (11.8-14.1); White Blood Cell Count 12.81 k/cumm (4.4-10.8)
[2018-08-08 06:21] LABS: Anion Gap 10.1 mmol/L (3-11); BUN 17 mg/dL (7-18); C-Reactive Protein 2.76 mg/dL (0.0-0.3); CO2 26.9 mmol/L (21.0-32.0); CREATININE 1.17 mg/dL (0.70-1.30); Chloride 104 mmol/L (98-107); Glucose 188 mg/dL (70-100); Potassium 4.4 mmol/L (3.5-5.1); Sodium 141 mmol/L (136-145)
[2018-08-08] MEDS: Acetaminophen 500 MG TAB 1000 MG PO ×3 (08:08→19:19)
[2018-08-08] MEDS: oxyCODONE 5 MG TAB PO ×3 (08:08→18:19)
[2018-08-08] MEDS: ALPRAZolam 0.5 MG TAB PO ×2 (08:28→19:29)
[2018-08-08] MEDS: Pantoprazole 40 MG TABCR PO (08:28)
[2018-08-08] MEDS: Omnipaque 350 MG/ML 100 ML BTL IJ (08:41)
[2018-08-08] MEDS: Omnipaque 350 MG/ML 50 ML BTL IJ (08:42)
--- NOTE | 2018-08-08 08:49 | DI.CT_ITS ---
SYMPTOMS/DIAGNOSIS: WORSENING LLQ PAIN, H/O PSOAS/PROXIMAL THIGH INFECTION CT SCAN OF THE ABDOMEN AND PELVIS: CT scan of the abdomen and pelvis was performed following the uneventful administration of intravenous contrast material. The lung bases are clear. The liver, spleen, pancreas, gallbladder, bile ducts, adrenal glands, kidneys, ureters and bladder are unremarkable. The reproductive organs are unremarkable. The bowel shows no evidence of obstruction or inflammation. No evidence of an acute appendicitis are present. No abdominal or pelvic ascites or pneumoperitoneum is seen. There are enlarged lymph nodes seen in the left iliac and inguinal region. The largest lymph node measures 1.5 cm in short axis diameter. There is enlargement of the left iliopsoas muscle with extension distally. This has increased compared to the prior examination from 08/02/18 suggesting ongoing inflammation, edema or infection. There does appear to be a fluid collection extending from the left pelvis into the inguinal region measuring 5.6 cm transverse x 3.8 cm AP x at least 7 cm craniocaudad. There is a drainage tube seen in the left anterior thigh. There is contrast seen in the left anterior thigh which per orthopedic surgery represents Betadine from the recent surgical procedure. There is air seen in the soft tissues of the left thigh consistent with recent surgery. No osseous abnormality is seen to suggest osteomyelitis. IMPRESSION: 1. Status post debridement and drainage catheter placement in the left anterior thigh. Residual Betadine is seen in the surgical bed. 2. Enlargement of the left iliopsoas muscle which has progressed since 08/02/18. This may represent ongoing edema, inflammation or infection. 3. Fluid collections seen in the left inguinal region. This may represent an abscess. 4. Mildly enlarged lymph nodes in the left iliac and inguinal region which are likely reactive. 5. Contrast seen in the surgical bed anterior to the proximal left thigh.
--- NOTE | 2018-08-08 09:34 | DI.VRAD_ITS ---
Addendum created by Corey Calloway MD on 08/08/2018 9:58:56 AM EST Addendum: There is a small fluid collection in the anterior medial aspect of the left iliopsoas. It measures 3 x 1.5 x 4.7 cm in the pelvis. It may remain in the muscle and extend into the anterior aspect of the thigh. Low attenuation can be followed in the iliopsoas into the anterior left thigh. This could represent abscess. Dr Aly states no contrast was injected but there is Betadine from recent surgery THIS REPORT CONTAINS FINDINGS THAT MAY BE CRITICAL TO PATIENT CARE. The findings were verbally communicated via telephone conference with JENNIFER ALY at 9:56 AM EST on 08/08/2018. The findings were acknowledged and understood. Initial report created on 08/08/2018 9:33:45 AM EST EXAM: CT Abdomen and Pelvis With Contrast EXAM DATE/TIME: 08/08/2018 8:28 AM CLINICAL HISTORY: 42 years old, male; Signs and symptoms; Other: Worsening llq pain, h/o psoas/proximal thigh infxn; Additional info: S/P drainage of infection in left hip TECHNIQUE: Axial computed tomography images of the abdomen and pelvis with intravenous contrast. All CT scans at this facility use at least one of these dose optimization techniques: automated exposure control; mA and/or kV adjustment per patient size (includes targeted exams where dose is matched to clinical indication); or iterative reconstruction. Coronal and sagittal reformatted images were created and reviewed. CONTRAST: 125 ml of Omnipaque 350 administered intravenously. COMPARISON: CT ABD PELVIS WITH CONTRAST 01/20/2017 12:06 PM FINDINGS: Lower thorax: No acute findings. ABDOMEN: Liver: Normal. No mass. Gallbladder and bile ducts: The gallbladder is contracted. Pancreas: Normal. No ductal dilation. Spleen: Normal. No splenomegaly. Adrenals: Normal. No mass. Kidneys and ureters: Normal. No hydronephrosis. Stomach and bowel: Normal. No obstruction. No mucosal thickening. Appendix: No evidence of appendicitis. PELVIS: Bladder: Unremarkable as visualized. Reproductive: Unremarkable as visualized. ABDOMEN and PELVIS: Intraperitoneal space: See Soft Tissues Finding. Bones/joints: Stable internal fixation device in L3-L5 Soft tissues: There is a tube in the soft tissues of the anterior left thigh. Contrast has been injected into the tube and there is a 17 x 18 mm collection of contrast anterior to the left femur. This may represent infection or cavity connected to a sinus tract. There were bubbles of air in the subcutaneous fat anteriorly in the left thigh. Inflammatory changes and fluid are seen in this region. The left psoas muscle is enlarged and contains a fat density centrally. It had not similar appearance previously but the psoas has increased in size. There are inflammatory changes adjacent to the psoas. This may reflect ongoing edema, inflammation or infection. Vasculature: Normal. No abdominal aortic aneurysm. Lymph nodes: Normal. No enlarged lymph nodes. IMPRESSION: 1. There is a tube in the soft tissues of the anterior left thigh. Contrast has been injected into the tube and there is a 17 x 18 mm collection of contrast anterior to the left femur. This may represent infection or cavity connected to a sinus tract. There were bubbles of air in the subcutaneous fat anteriorly in the left thigh. Inflammatory changes and fluid are seen in this region. 2. The left psoas muscle is enlarged and contains a fat density centrally. It had not similar appearance previously but the psoas has increased in size. There are inflammatory changes adjacent to the psoas. This may reflect ongoing edema, inflammation or infection. Dictated and Authenticated by: Corey Calloway MD. Ordering:SPENCER Santoyo MD
--- NOTE | 2018-08-08 13:28 | W.PM.PROGNOT ---
Date of Service Date of service: 08/08/18 Time of Service: 08:29 Assessment and Plan (1) Psoas abscess, left: Current visit: Yes Status: Acute Jason is s/p a second washout for his left hip/psoas infection. His thigh and proximal leg appears to be doing better but he stiil has the LLQ pain which I expect to be related to the psoas tendon. His CRP has decreased significantly and he is afebrile. I will obtain a CT today to check on any drainable intrapelvic abscess which may require IR intervention. Otherwise, we will continue with IV abx, Cefazolin. Subjective Interval history since last seen: Jason reports still feeling ill but better than yesterday. He walked a lot yesterday and has some increased pain about the hip. He also has the pain in the LLQ. The thigh pain is better. He denies any fever or chills. Exam Narrative Exam Narrative: LLE dressing with minimal amount of serosanguinous discharge. The drain is intact with about 10cc of bloody discharge. He tolerates some hip ROM but he has more pain now. His thigh appears less full. It is compressile and has less pain to palpation. He does have pain to palpation in the LLQ but no rebound or gaurding. Objective Objective Clinical Data: Abnormal lab results 08/08/18 08/08/18 Range/Units 05:30 05:30 WBC 12.81 H D (4.4-10.8) k/cumm RBC 3.81 L (4.50-6.00) m/cumm Hgb 10.1 L (13.5-17.5) g/dL Hct 32.1 L (40.0-50.0) % MCH 26.5 L (27.0-33.0) pg MCHC 31.5 L (32.0-36.0) g/dL RDW 14.8 H (11.8-14.1) % Glucose 188 H D (70-100) mg/dL C-Reactive Protein 2.76 H (0.0-0.3) mg/dL Vital Signs Temperature 36.5 C 08/08/18 11:00 Temperature Source Tympanic 08/08/18 11:00 Pulse 66 08/08/18 11:00 Pulse Rhythm Regular 08/08/18 07:27 Respiratory Rate 18 08/08/18 11:00 Respiratory Effort Non-Labored 08/08/18 07:27 Respiratory Depth Normal 08/08/18 07:27 Respiratory Pattern Normal 08/08/18 07:27 Blood Pressure 143/90 H 08/08/18 11:00 Blood Pressure Position Sitting 08/02/18 08:56 Pulse Oximetry 97 08/08/18 11:00 Respiratory End-tidal CO2 12 08/07/18 11:30 Oxygen Delivery Method Room Air 08/08/18 11:00 Oxygen Flow Rate 0 08/08/18 11:00 Pain Level 7 08/08/18 11:50 Comment 08/08/18 07:55 Intake & Output 08/07/18 08/08/18 08/08/18 23:59 11:59 23:59 Intake Total 1028.667 / 0391.033 0714 / 1410 Output Total 630 / 680 10 Balance 398.667 / 6054.272 9847 / 1400 Intake: IV 428.667 / 1278.667 70 / 70 Oral 600 / 600 1340 / 1340 Output: Drainage 30 60 10 10 Left Hip 30 60 10 / 10 Urine 600 / 600 Other: Urine Color Straw Urine Appearance Clear Clear Urine Odor None Comment Void x1 in the toilet. Void x1 in the toilet. Void x1 in the toilet. Voiding Methods Toilet Toilet Toilet Laboratory Results WBC 12.81 k/cumm (4.4-10.8) H D 08/08/18 05:30 RBC 3.81 m/cumm (4.50-6.00) L 08/08/18 05:30 Hgb 10.1 g/dL (13.5-17.5) L 08/08/18 05:30 Hct 32.1 % (40.0-50.0) L 08/08/18 05:30 MCV 84.3 fL (80-95) 08/08/18 05:30 MCH 26.5 pg (27.0-33.0) L 08/08/18 05:30 MCHC 31.5 g/dL (32.0-36.0) L 08/08/18 05:30 RDW 14.8 % (11.8-14.1) H 08/08/18 05:30 Plt Count 330 x1000/uL (130-400) 08/08/18 05:30 MPV 9.0 fL (8.0-11.0) 08/08/18 05:30 Immature Gran % 0.2 08/02/18 09:45 Neutrophils % 75.3 08/02/18 09:45 Lymphocytes % 15.6 08/02/18 09:45 Monocytes % 7.1 08/02/18 09:45 Eosinophils % 1.6 08/02/18 09:45 Basophils % 0.2 08/02/18 09:45 Absolute Neutrophils 7.17 k/cumm (1.2-6.7) H 08/02/18 09:45 Absolute Lymphocytes 1.49 k/cumm (1.2-3.4) 08/02/18 09:45 Absolute Monocytes 0.68 k/cumm (0.11-0.7) 08/02/18 09:45 Absolute Eosinophils 0.15 k/cumm (0.0-0.7) 08/02/18 09:45 Absolute Basophils 0.02 k/cumm (0.0-0.2) 08/02/18 09:45 ESR 94 MM/HR (0-15) H 08/02/18 09:45 Sodium 141 mmol/L (136-145) 08/08/18 05:30 Potassium 4.4 mmol/L (3.5-5.1) D 08/08/18 05:30 Chloride 104 mmol/L (98-107) 08/08/18 05:30 Carbon Dioxide 26.9 mmol/L (21.0-32.0) 08/08/18 05:30 Anion Gap 10.1 mmol/L (3-11) 08/08/18 05:30 BUN 17 mg/dL (7-18) D 08/08/18 05:30 Creatinine 1.17 mg/dL (0.70-1.30) 08/08/18 05:30 Estimated GFR/1.73 m2 >= 60.00 (mL/min/1.73m2) 08/08/18 05:30 Glucose 188 mg/dL (70-100) H D 08/08/18 05:30 Lactate 1.1 mmol/L (0.6-1.4) 08/02/18 09:45 Calcium 9.0 mg/dL (8.5-10.1) 08/08/18 05:30 Magnesium 2.0 mg/dL (1.8-2.4) 08/08/18 05:30 Total Bilirubin 0.5 mg/dL (0.2-1.0) 08/02/18 09:45 AST 17 U/L (15-37) 08/02/18 09:45 ALT 19 U/L (12-78) 08/02/18 09:45 Alkaline Phosphatase 84 U/L (46-116) 08/02/18 09:45 Creatine Kinase 68 U/L (39-308) 08/02/18 09:45 C-Reactive Protein 2.76 mg/dL (0.0-0.3) H 08/08/18 05:30 Total Protein 8.0 g/dL (6.4-8.2) 08/02/18 09:45 Albumin 3.3 g/dL (3.4-5.0) L 08/02/18 09:45 Vancomycin Trough 17.4 ug/mL (10.0-20.0) 08/06/18 06:36
--- NOTE | 2018-08-08 13:28 | W.PM.PROGNOT ---
Date of Service Date of service: 08/08/18 Time of Service: 13:00 Assessment and Plan (1) Psoas abscess, left: Current visit: Yes Status: Acute per surgery. s/p debridement x2, continue to maintain DERIK drain and dressing per their recommendations. cultures grew MSSA, will continue cefazolin, at minimum 2 weeks, consider 4-6. continue pain management, which is stable. (2) DVT prophylaxis: Current visit: Yes Status: Acute continue SCD's, patient has been up and ambulatory (3) Discharge planning issues: Current visit: Yes Status: Acute case management following. patient will need extended antibiotics, orthopedics recommends at the minimum 2 weeks, 4-6 if treating for osteo which is not confirmed. Is currently couch surfing while awaiting new housing, patient reports in about 1 month. states he will need to be allowed day passes to coordinate and deal with moving details to arrange. will discuss with case management. (4) GERD (gastroesophageal reflux disease): Current visit: Yes Status: Chronic stable, continue daily pantoprazole (5) Anxiety: Current visit: Yes Status: Chronic stable, can have xanax as needed. (6) Hepatitis C: Current visit: Yes Status: Chronic stable, continue Mavyret Subjective Interval history since last seen: This is a 42-year-old male patient with a past medical history significant for IV drug abuse with a left hip infection status post debridement 6 or 7 years ago who presented for evaluation of increasing left thigh and hip pain and swelling, taken to the OR for irrigation and debridement postoperatively with increasing pain swelling and ongoing symptoms returned to the OR yesterday for further debridement. Today states the pain is stable and not worse. He has not had fever max temp overnight 36.6. Hemodynamically he has been stable. He did undergo a CAT scan today to evaluate for ongoing abscess. White count today is elevated to 12.8 from 7.1. His CRP is down to 2.7 from 5.2 yesterday. He continues to receive IV Ancef based on culture and sensitivities. Exam Const General: no acute distress and anxious Nutritional Appearance: obese Orientation: alert and oriented x3 Resp Effort & Inspection: normal respiratory effort Auscultation: clear to auscultation bilaterally Cardio Rate: regular rate Rhythm: regular rhythm GI Inspection: obesity Palpation: soft Auscultation: normal bowel sounds Skin Wounds: wounds noted (surgical wound not visualized, no surrounding erythema crepitus or discolor) Other: DERIK drain intact with scant amount of sanguineous drainage. Neuro General: alert and oriented x3 Objective Objective Clinical Data: Abnormal lab results 08/08/18 08/08/18 Range/Units 05:30 05:30 WBC 12.81 H D (4.4-10.8) k/cumm RBC 3.81 L (4.50-6.00) m/cumm Hgb 10.1 L (13.5-17.5) g/dL Hct 32.1 L (40.0-50.0) % MCH 26.5 L (27.0-33.0) pg MCHC 31.5 L (32.0-36.0) g/dL RDW 14.8 H (11.8-14.1) % Glucose 188 H D (70-100) mg/dL C-Reactive Protein 2.76 H (0.0-0.3) mg/dL Vital Signs Temperature 36.5 C 08/08/18 11:00 Temperature Source Tympanic 08/08/18 11:00 Pulse 66 08/08/18 11:00 Pulse Rhythm Regular 08/08/18 07:27 Respiratory Rate 18 08/08/18 11:00 Respiratory Effort Non-Labored 08/08/18 07:27 Respiratory Depth Normal 08/08/18 07:27 Respiratory Pattern Normal 08/08/18 07:27 Blood Pressure 143/90 H 08/08/18 11:00 Blood Pressure Position Sitting 08/02/18 08:56 Pulse Oximetry 97 08/08/18 11:00 Respiratory End-tidal CO2 12 08/07/18 11:30 Oxygen Delivery Method Room Air 08/08/18 11:00 Oxygen Flow Rate 0 08/08/18 11:00 Pain Level 7 08/08/18 11:50 Comment 08/08/18 07:55 Intake & Output 08/07/18 08/08/18 08/08/18 23:59 11:59 23:59 Intake Total 1028.667 / 7154.476 4635 / 1410 Output Total 630 / 680 10 Balance 398.667 / 0567.401 1901 / 1400 Intake: IV 428.667 / 1278.667 70 / 70 Oral 600 / 600 1340 / 1340 Output: Drainage Left Hip Urine 600 / 600 Other: Urine Color Straw Urine Appearance Clear Clear Urine Odor None Comment Void x1 in the toilet. Void x1 in the toilet. Void x1 in the toilet. Voiding Methods Toilet Toilet Toilet Laboratory Results WBC 12.81 k/cumm (4.4-10.8) H D 08/08/18 05:30 RBC 3.81 m/cumm (4.50-6.00) L 08/08/18 05:30 Hgb 10.1 g/dL (13.5-17.5) L 08/08/18 05:30 Hct 32.1 % (40.0-50.0) L 08/08/18 05:30 MCV 84.3 fL (80-95) 08/08/18 05:30 MCH 26.5 pg (27.0-33.0) L 08/08/18 05:30 MCHC 31.5 g/dL (32.0-36.0) L 08/08/18 05:30 RDW 14.8 % (11.8-14.1) H 08/08/18 05:30 Plt Count 330 x1000/uL (130-400) 08/08/18 05:30 MPV 9.0 fL (8.0-11.0) 08/08/18 05:30 Immature Gran % 0.2 08/02/18 09:45 Neutrophils % 75.3 08/02/18 09:45 Lymphocytes % 15.6 08/02/18 09:45 Monocytes % 7.1 08/02/18 09:45 Eosinophils % 1.6 08/02/18 09:45 Basophils % 0.2 08/02/18 09:45 Absolute Neutrophils 7.17 k/cumm (1.2-6.7) H 08/02/18 09:45 Absolute Lymphocytes 1.49 k/cumm (1.2-3.4) 08/02/18 09:45 Absolute Monocytes 0.68 k/cumm (0.11-0.7) 08/02/18 09:45 Absolute Eosinophils 0.15 k/cumm (0.0-0.7) 08/02/18 09:45 Absolute Basophils 0.02 k/cumm (0.0-0.2) 08/02/18 09:45 ESR 94 MM/HR (0-15) H 08/02/18 09:45 Sodium 141 mmol/L (136-145) 08/08/18 05:30 Potassium 4.4 mmol/L (3.5-5.1) D 08/08/18 05:30 Chloride 104 mmol/L (98-107) 08/08/18 05:30 Carbon Dioxide 26.9 mmol/L (21.0-32.0) 08/08/18 05:30 Anion Gap 10.1 mmol/L (3-11) 08/08/18 05:30 BUN 17 mg/dL (7-18) D 08/08/18 05:30 Creatinine 1.17 mg/dL (0.70-1.30) 08/08/18 05:30 Estimated GFR/1.73 m2 >= 60.00 (mL/min/1.73m2) 08/08/18 05:30 Glucose 188 mg/dL (70-100) H D 08/08/18 05:30 Lactate 1.1 mmol/L (0.6-1.4) 08/02/18 09:45 Calcium 9.0 mg/dL (8.5-10.1) 08/08/18 05:30 Magnesium 2.0 mg/dL (1.8-2.4) 08/08/18 05:30 Total Bilirubin 0.5 mg/dL (0.2-1.0) 08/02/18 09:45 AST 17 U/L (15-37) 08/02/18 09:45 ALT 19 U/L (12-78) 08/02/18 09:45 Alkaline Phosphatase 84 U/L (46-116) 08/02/18 09:45 Creatine Kinase 68 U/L (39-308) 08/02/18 09:45 C-Reactive Protein 2.76 mg/dL (0.0-0.3) H 08/08/18 05:30 Total Protein 8.0 g/dL (6.4-8.2) 08/02/18 09:45 Albumin 3.3 g/dL (3.4-5.0) L 08/02/18 09:45 Vancomycin Trough 17.4 ug/mL (10.0-20.0) 08/06/18 06:36
--- NOTE | 2018-08-08 14:36 | PDOC.CMPRO ---
- If Service Date Differs Date of service: 08/08/18 Time of Service: 14:36 Care Management Progress Note S/O: Jason is sitting up in his chair when this selling underwriter visits this morning. He states that Dr. Restrepo met with him today and stated that he would most likely need to be hospitalized for IV antibiotics for two weeks. Jason states that he will stay at [facility] for swingbed, though states that he has things that he needs to do and states that he needs to leave the hospital for a few hours. Jason states that he needs to find a storage unit for his belongings and move them to the storage unit. CM brainstormed with Jason a different approach, and provided him with a list of storage unit facilities locally, as well as discussed having his family/friends facilitate moving his belongings. Jason was in agreement with the above, and CM provided him with a list of storage facilities to contact regarding availability. A: 42 y/o male admitted 08/02/18 for (L) hip soft tissue infection P: Jason to remain at [facility] for IV antibiotics. aJson will transition to a swingbed level of care once medically cleared. Jason will meet with [facility] at time of DC to discuss housing options. He will follow up with Dr. Restrepo and his plan of care as prescribed. CM will continue to support discharge planning considerations. Jason's friend/roommate Alonzo will transport via private vehicle when ready.
[2018-08-08] MEDS: Normal Saline 500 ML 100 ML IV (14:38)
--- NOTE | 2018-08-08 14:42 | CMPROGNOTE_ITS ---
- If Service Date Differs Date of service: 08/08/18 Time of Service: 14:36 Care Management Progress Note S/O: Jason is sitting up in his chair when this sign writer letterer or painter visits this morning. He states that Dr. Restrepo met with him today and stated that he would most likely need to be hospitalized for IV antibiotics for two weeks. Jason states that he will stay at [facility] for swingbed, though states that he has things that he needs to do and states that he needs to leave the hospital for a few hours. Jason states that he needs to find a storage unit for his belongings and move them to the storage unit. CM brainstormed with Jason a different approach, and provided him with a list of storage unit facilities locally, as well as discussed having his family/friends facilitate moving his belongings. Jason was in agreement with the above, and CM provided him with a list of storage facilities to contact regarding availability. A: 42 y/o male admitted 08/02/18 for (L) hip soft tissue infection P: Jason to remain at [facility] for IV antibiotics. Jason will transition to a swingbed level of care once medically cleared. Jason will meet with [facility] at time of DC to discuss housing options. He will follow up with Dr. Restrepo and his plan of care as prescribed. CM will continue to support discharge planning considerations. Jason's friend/roommate Alonzo will transport via private vehicle when ready.
[2018-08-09 03:47] VITALS: BP 145/99; PULSE 66; RESP 16; TEMP 36.5; O2SAT 97
[2018-08-09] MEDS: Ketorolac 15 MG/ML VIAL IVP (04:17)
[2018-08-09] MEDS: Normal Saline Flush 10 ML SYR IVP ×6 (04:18→18:57)
[2018-08-09] MEDS: oxyCODONE 5 MG TAB PO ×3 (05:07→15:43)
[2018-08-09] MEDS: HYDROmorphone 2 MG/ML VIAL 0.5 MG IVP ×3 (06:10→18:56)
[2018-08-09] MEDS: Pantoprazole 40 MG TABCR PO (07:23)
[2018-08-09 07:30] LABS: Abs Immature Grans 0.05 k/cumm (0.0-0.09); Absolute Basophil Count 0.03 k/cumm (0.0-0.2); Absolute Eosinophil Count 0.18 k/cumm (0.0-0.7); Absolute Lymphocyte Count 2.72 k/cumm (1.2-3.4); Absolute Monocyte Count 0.47 k/cumm (0.11-0.7); Absolute Neutrophil Count 4.89 k/cumm (1.2-6.7); Basophils % 0.4; Eosinophils % 2.2; HCT 31.9 % (40.0-50.0); HGB 9.7 g/dL (13.5-17.5); Immature Grans % 0.6; Lymphocytes % 32.6; Mean Corp. HGB Concentration 30.4 g/dL (32.0-36.0); Mean Corpuscular Hemoglobin 26.2 pg (27.0-33.0); Mean Corpuscular Volume 86.2 fL (80-95); Mean Platelet Volume 9.1 fL (8.0-11.0); Monocytes % 5.6; Neutrophils % 58.6; Platelet Count 286 x1000/uL (130-400); RBC Distribution Width 15.3 % (11.8-14.1); White Blood Cell Count 8.34 k/cumm (4.4-10.8)
[2018-08-09 07:34] VITALS: BP 167/98; PULSE 65; RESP 20; TEMP 37.3; O2SAT 98
[2018-08-09 07:36] LABS: Anion Gap 10.1 mmol/L (3-11); BUN 17 mg/dL (7-18); CO2 26.9 mmol/L (21.0-32.0); CREATININE 1.31 mg/dL (0.70-1.30); Calcium 8.6 mg/dL (8.5-10.1); Chloride 105 mmol/L (98-107); Estimated GFR 59.72 (mL/min/1.73m2); Glucose 126 mg/dL (70-100); Potassium 3.9 mmol/L (3.5-5.1); Sodium 142 mmol/L (136-145)
--- NOTE | 2018-08-09 07:45 | ROE_ITS ---
REPORT OF OPERATIVE PROCEDURE DATE OF SURGERY August 07, 2018 PREOPERATIVE DIAGNOSES Left hip infection with psoas abscesses. POSTOPERATIVE DIAGNOSES Left hip infection with psoas abscesses. SURGERY Irrigation and debridement of left hip and thigh. SURGEON Natanael Restrepo M.D. INHALATION THERAPIST Giovana Marroquin PA-C FINDINGS There was no gross purulent material encountered upon entering into the hip. Excessive debridement wa s performed. The psoas tendon was palpated and manipulated. The acetabulum was also palpated and laurita pulated. There was no expansion of infection, however, there was a pocket in the medial and distal th igh, which was encountered having a significant amount of necrotic, infectious material, which was de bulked. Antibiotic-laden calcium sulfate cement was placed down into the depths of this wound for loc al antibiotic delivery. A drain was placed. ESTIMATED BLOOD LOSS 20 cc. ANESTHESIA General. COMPLICATIONS None. DISPOSITION The patient was awakened from anesthesia and taken back to the PACU in stable condition. INDICATION FOR PROCEDURE Jason is a 42-year old who I had seen and admitted to the hospital for a left hip soft tissue infec tion with psoas abscess. He has already undergone one debridement. He was having worsening symptoms a nd purulent discharge from his drain and therefore I recommended a secondary washout procedure. I rev iewed the risks of the procedure with him to include bleeding, infection persistence, damage to nerve s and vessels, damage to muscles and tendons, pain and stiffness, blood clot. Despite these risks, he elected to proceed. PROCEDURE DESCRIPTION Jason was greeted in the preoperative holding area. His identity was previously confirmed and the c orrect side was identified and marked. His history and physical had been updated. The consent was pre viously signed with the patient. He was then taken back to the Operating Room, placed in the supine position. All bony prominences wer e padded. A general anesthetic was administered. Prophylactic antibiotics were previously administere d as part of his routine antibiotic treatment with cefazolin. The drain was removed from the left hip . The left hip was then prepped with Betadine and draped in a standard fashion. A timeout was perform ed for safe surgery. The remnant sutures were removed. The previous incision was incised and broken up. There was already a significant amount of healing, which was a good sign to see. Immediately upon entering the wound, t here was no significant purulent material encountered. The tissue in this area appeared to be pink an d granulating. There was obviously necrosis from the previous infection, which was noted. This was se en around the sartorius muscle. The same path which had been utilized from the infection was unitized again. Again, there were no significant signs of infection in this area. The dissection was carried down deep. There was a small amount of purulent material encountered at the level of the medial proxi mal femur and the lesser trochanter. This was manually debrided with a curette and by hand, and with suction. I also spent time trying to manipulate the psoas tendon as to debride any remnant infectious material trekking up or down the psoas tendon. I also used a dilute Betadine wash of 17.5 ml of Beta dine with 500 cc of normal saline. I injected this throughout the soft tissues of the hip trying agai n to force this fluid up to the psoas tendon. The wound was then thoroughly irrigated with 3 liters o f normal saline. As a final check before leaving, I manually palpated the depth of the cavity within the thigh and the wound. I then encountered an area, which I did not appreciate previously quite medial. This was medi al and distal to the insertion of the iliopsoas on the lesser trochanter. Due to visualization restri ctions and its location, I was unable to directly visualize this space, however, I could feel the tis jasmyn, which appeared to be infectious in nature. Using a curved curette, my finger, and suction, I was able to debride significant amounts of necrotic, infectious material. I performed this for all aspec ts of this cavity, which I encountered. Again, our approach was coming through the defect in sartoriu s muscle, which was naturally created from the infection. I did not feel comfortable accessing the me dial thigh in any other way knowing the neurovascular bundle was behind the scar tissue of the curren t path were in. I therefore did not extend this incision, but continued to work from within this defe ct using palpation as a primary guide. Again, a curette was used and we thoroughly debrided this area of any infectious material being careful when drifting medially and distally as branches of the femo ral artery would be present. A thorough irrigation of 3 liters of normal saline was performed. Given this cavity, which was encountered over the medial femur, I then elected to place some calcium sulfat e beads. These were loaded with 2.4 grams of tobramycin. They were then placed into this defect of th e soft tissue in the medial, proximal femur. A drain was then placed proximal to this area, on the pr oximal side of the iliopsoas tendon within the hip. The deep tissues were closed with 0 and #2-0 PDS. The skin was closed with 3-0 nylon. The wound was dressed with 4x4s, Medipore tape. At the end of e case, all counts were correct. He will continue on cefazolin.
[2018-08-09 08:23] LABS: C-Reactive Protein 1.35 mg/dL (0.0-0.3)
[2018-08-09] MEDS: Celecoxib 200 MG CAP PO ×2 (08:40→19:24)
[2018-08-09] MEDS: Acetaminophen 500 MG TAB 1000 MG PO ×3 (08:41→19:23)
--- NOTE | 2018-08-09 10:05 | PDOC.CMPRO ---
- If Service Date Differs Date of service: 08/09/18 Time of Service: 10:05 Care Management Progress Note S/O: Jason is reclined in his chair with his hat over his face when this handbook writer visits with him. He states that he is having pain, and has an ice pack applied to his hip. Jason states that he has been in pain for a while and that nursing staff is aware. Jason did not want to discuss DC plans this morning as he was not feeling well. A: 42 y/o male admitted 08/02/18 for (L) hip soft tissue infection P: Jason to remain at [facility] for IV antibiotics. Jason will transition to a swingbed level of care once medically cleared. Jason will meet with [facility] at time of DC to discuss housing options. He will follow up with Dr. Restrepo and his plan of care as prescribed. CM will continue to support discharge planning considerations. Jason's friend/roommate Alonzo will transport via private vehicle when ready.
[2018-08-09 10:59] LABS: Creatine Kinase 107 U/L (39-308)
[2018-08-09 12:34] VITALS: BP 159/101; PULSE 68; RESP 21; TEMP 37.1; O2SAT 99
--- NOTE | 2018-08-09 13:11 | PGE_ITS ---
Date of Service Date of service: 08/09/18 Time of Service: 12:57 Assessment and Plan (1) Psoas abscess, left: Current visit: Yes Status: Acute S/p debridement x2. Wound cultures are growing MSSA. The DERIK drain is out. CRP is trending down. Repeat CT today. Continue current treatment with Ancef, will likely need long-term IV antibiotics (4-6 weeks). (2) GERD (gastroesophageal reflux disease): Current visit: Yes Status: Chronic stable, continue daily pantoprazole. (3) Hepatitis C: Current visit: Yes Status: Chronic stable, continue Mavyret. (4) Anxiety: Current visit: Yes Status: Chronic Stable. Xanax as needed. (5) DVT prophylaxis: Current visit: Yes Status: Acute continue SCD's, continue frequent ambulation. (6) Acute kidney injury: Current visit: Yes Status: Acute Creatinine up to 1.31 today, has previously been normal. CK normal. Encourage oral intake. Toradol discontinued. Reassess BMP in the morning. (7) Discharge planning issues: Current visit: Yes Status: Acute He is a FULL code. He will transition to swing bed for continued IV antibiotics when he is no longer acute. This case was discussed with Dr. Connell who is in agreement. Subjective Interval history since last seen: Mr. Cuevas is a pleasant 42 year old male with a past medical history significant for IV drug abuse (in remission), hepatitis C (currently previous left hip infection 6-7 years ago (details unknown) who is currently being treated for a left hip/psoas infection. He was taken to the OR with Dr. Restrepo for irrigation and debridement with drain p lacement on 08/04/18. A significant amount of purulent material was noted. He continued to experience increasing pain swelling postoperatively. He returned to the OR on 08/07 (2 days ago) for further debridement. Today, he reports that he is feeling depressed about having to remain in the hospital for IV antibiotics. He is experiencing increased left hip pain today. He notes that he ambulated frequently in the halls yesterday. The drain fell out last evening. He continues to note drainage on his dressing. He is eating and drinking. The nausea has resolved. He denies any other symptoms such as SOB, coughing, wheezing, chest pain/pressure. His bowels and bladder are functioning well. Exam Narrative Exam Narrative: General: laying in bed, awake and alert, in NAD. Psyche: making good eye contact, answering questions appropriately HEENT: Normocephalic, atraumatic. pupils equal and round. MMM. edentulous on top. Neck: supple, no JVD. Respiratory: respirations even and unlabored, lung sounds CTA throughout. Cardiovascular: heart with regular rate and rhythm, no murmur appreciated, no clicks, gallops or rubs. GI: +bs x4, abdomen soft, nontender on palpation, no masses appreciated. Extremities: left anterior thigh with dressing intact, serosanguinous drainage beginning to come through. The left thigh has less swelling, no erythema noted around the dressing. Mild tenderness on palpation. LLE ROM intact. Peripheral pulses palpable bilaterally. Objective Objective Clinical Data: Abnormal lab results 08/09/18 08/09/18 Range/Units 06:15 06:15 RBC 3.70 L (4.50-6.00) m/cumm Hgb 9.7 L (13.5-17.5) g/dL Hct 31.9 L (40.0-50.0) % MCH 26.2 L (27.0-33.0) pg MCHC 30.4 L (32.0-36.0) g/dL RDW 15.3 H (11.8-14.1) % Creatinine 1.31 H (0.70-1.30) mg/dL Glucose 126 H (70-100) mg/dL C-Reactive Protein 1.35 H (0.0-0.3) mg/dL Vital Signs Temperature 37.1 C 08/09/18 12:34 Temperature Source Tympanic 08/09/18 12:34 Pulse 68 08/09/18 12:34 Pulse Rhythm Regular 08/09/18 08:00 Respiratory Rate 21 08/09/18 12:34 Respiratory Effort 08/09/18 08:00 Respiratory Depth Normal 08/09/18 08:00 Respiratory Pattern Normal 08/09/18 05:10 Blood Pressure 159/101 H 08/09/18 12:34 Blood Pressure Position Sitting 08/02/18 08:56 Pulse Oximetry 99 08/09/18 12:34 Respiratory End-tidal CO2 12 08/07/18 11:30 Oxygen Delivery Method Room Air 08/09/18 12:34 Oxygen Flow Rate 0 08/09/18 12:34 Pain Level 8 08/09/18 12:30 Comment 08/09/18 12:34 Intake & Output 08/08/18 08/09/18 08/09/18 23:59 11:59 23:59 Intake Total 1035.000 / 2445.000 340 / 340 Output Total Balance 1025.000 / 2425.000 340 / 340 Intake: IV 245.000 / 315.000 Oral 790 / 2130 320 / 320 Output: Drainage Left Hip Other: Urine Appearance Clear Comment pt voiding independently in the toilet Urine not visualized, voiding independently in bathroom. Voiding Methods Toilet Toilet Laboratory Results WBC 8.34 k/cumm (4.4-10.8) D 08/09/18 06:15 RBC 3.70 m/cumm (4.50-6.00) L 08/09/18 06:15 Hgb 9.7 g/dL (13.5-17.5) L 08/09/18 06:15 Hct 31.9 % (40.0-50.0) L 08/09/18 06:15 MCV 86.2 fL (80-95) 08/09/18 06:15 MCH 26.2 pg (27.0-33.0) L 08/09/18 06:15 MCHC 30.4 g/dL (32.0-36.0) L 08/09/18 06:15 RDW 15.3 % (11.8-14.1) H 08/09/18 06:15 Plt Count 286 x1000/uL (130-400) 08/09/18 06:15 MPV 9.1 fL (8.0-11.0) 08/09/18 06:15 Immature Gran % 0.6 08/09/18 06:15 Neutrophils % 58.6 08/09/18 06:15 Lymphocytes % 32.6 08/09/18 06:15 Monocytes % 5.6 08/09/18 06:15 Eosinophils % 2.2 08/09/18 06:15 Basophils % 0.4 08/09/18 06:15 Absolute Neutrophils 4.89 k/cumm (1.2-6.7) 08/09/18 06:15 Absolute Lymphocytes 2.72 k/cumm (1.2-3.4) 08/09/18 06:15 Absolute Monocytes 0.47 k/cumm (0.11-0.7) 08/09/18 06:15 Absolute Eosinophils 0.18 k/cumm (0.0-0.7) 08/09/18 06:15 Absolute Basophils 0.03 k/cumm (0.0-0.2) 08/09/18 06:15 ESR 94 MM/HR (0-15) H 08/02/18 09:45 Sodium 142 mmol/L (136-145) 08/09/18 06:15 Potassium 3.9 mmol/L (3.5-5.1) 08/09/18 06:15 Chloride 105 mmol/L (98-107) 08/09/18 06:15 Carbon Dioxide 26.9 mmol/L (21.0-32.0) 08/09/18 06:15 Anion Gap 10.1 mmol/L (3-11) 08/09/18 06:15 BUN 17 mg/dL (7-18) 08/09/18 06:15 Creatinine 1.31 mg/dL (0.70-1.30) H 08/09/18 06:15 Estimated GFR/1.73 m2 59.72 (mL/min/1.73m2) 08/09/18 06:15 Glucose 126 mg/dL (70-100) H 08/09/18 06:15 Lactate 1.1 mmol/L (0.6-1.4) 08/02/18 09:45 Calcium 8.6 mg/dL (8.5-10.1) 08/09/18 06:15 Magnesium 2.0 mg/dL (1.8-2.4) 08/08/18 05:30 Total Bilirubin 0.5 mg/dL (0.2-1.0) 08/02/18 09:45 AST 17 U/L (15-37) 08/02/18 09:45 ALT 19 U/L (12-78) 08/02/18 09:45 Alkaline Phosphatase 84 U/L (46-116) 08/02/18 09:45 Creatine Kinase 107 U/L (39-308) 08/09/18 06:15 C-Reactive Protein 1.35 mg/dL (0.0-0.3) H 08/09/18 06:15 Total Protein 8.0 g/dL (6.4-8.2) 08/02/18 09:45 Albumin 3.3 g/dL (3.4-5.0) L 08/02/18 09:45 Vancomycin Trough 17.4 ug/mL (10.0-20.0) 08/06/18 06:36
[2018-08-09] MEDS: ALPRAZolam 0.5 MG TAB PO (14:32)
[2018-08-09] MEDS: Normal Saline 500 ML 100 ML IV (14:33)
[2018-08-09 15:30] VITALS: BP 159/92; PULSE 73; RESP 20; TEMP 36.5; O2SAT 96
--- NOTE | 2018-08-09 16:44 | PGE_ITS ---
Date of Service Date of service: 08/09/18 Time of Service: 12:42 Assessment and Plan (1) Psoas abscess, left: Current visit: Yes Status: Acute Jason is status post second debridement of his left hip, thigh, and psoas tendon. His C-reactive protein is dropping appropriately down to 1.4 today. He does have some pain still up in the pelvis. CT scan performed on Thursday does show a small abscess in the psoas tendon. Given that his inflammatory markers are improving and he is not currently septic, I would continue to follow this conservatively at this time. It is not a very large abscess and it would require interventional drain placement. He will require long-term IV antibiotics. He will likely transition to a swing bed in the coming days. I did stop the Toradol for an increase in his creatinine. This will be rechecked tomorrow. Subjective Interval history since last seen: Jason reports having some pain in the pelvis and groin area. He has been walking quite a bit last night. He notes some good times and bad times. He feels like the thigh is definitely much better. He denies any fevers or chills. He does feel quite fatigued today. The drain did come out last night and the dressing has been reapplied. Exam Narrative Exam Narrative: Sitting up in bed. He is able to move without any significant discomfort. He does grab his pelvic brim as the area of pain. He tolerates so me internal and external rotation of the hip although more than 20 or 30 degrees of total arc causes pain. Thigh is much more compressible. No erythema. Mild serosanguineous drainage from the wound. Much less pain to palpation. Objective Objective Clinical Data: Abnormal lab results 08/09/18 08/09/18 Range/Units 06:15 06:15 RBC 3.70 L (4.50-6.00) m/cumm Hgb 9.7 L (13.5-17.5) g/dL Hct 31.9 L (40.0-50.0) % MCH 26.2 L (27.0-33.0) pg MCHC 30.4 L (32.0-36.0) g/dL RDW 15.3 H (11.8-14.1) % Creatinine 1.31 H (0.70-1.30) mg/dL Glucose 126 H (70-100) mg/dL C-Reactive Protein 1.35 H (0.0-0.3) mg/dL Vital Signs Temperature 36.5 C 08/09/18 15:30 Temperature Source Tympanic 08/09/18 15:30 Pulse 73 08/09/18 15:30 Pulse Rhythm Regular 08/09/18 08:00 Respiratory Rate 20 08/09/18 15:30 Respiratory Effort 08/09/18 08:00 Respiratory Depth Normal 08/09/18 08:00 Respiratory Pattern Normal 08/09/18 05:10 Blood Pressure 159/92 H 08/09/18 15:30 Blood Pressure Position Sitting 08/02/18 08:56 Pulse Oximetry 96 08/09/18 15:30 Respiratory End-tidal CO2 12 08/07/18 11:30 Oxygen Delivery Method Room Air 08/09/18 15:30 Oxygen Flow Rate 0 08/09/18 15:30 Pain Level 7 08/09/18 15:43 Comment 08/09/18 12:34 Intake & Output 08/08/18 08/09/18 08/09/18 23:59 11:59 23:59 Intake Total 1035.000 / 2445.000 390 / 870 480 / 870 Output Total Balance 1025.000 / 2425.000 390 / 870 480 / 870 Intake: IV 245.000 / 315.000 70 / 70 0 / 70 Oral 790 / 2130 320 / 800 480 / 800 Output: Drainage Left Hip Other: Urine Appearance Clear Comment pt voiding independently in the toilet Urine not visualized, voiding independently in bathroom. Voiding Methods Toilet Toilet Laboratory Results WBC 8.34 k/cumm (4.4-10.8) D 08/09/18 06:15 RBC 3.70 m/cumm (4.50-6.00) L 08/09/18 06:15 Hgb 9.7 g/dL (13.5-17.5) L 08/09/18 06:15 Hct 31.9 % (40.0-50.0) L 08/09/18 06:15 MCV 86.2 fL (80-95) 08/09/18 06:15 MCH 26.2 pg (27.0-33.0) L 08/09/18 06:15 MCHC 30.4 g/dL (32.0-36.0) L 08/09/18 06:15 RDW 15.3 % (11.8-14.1) H 08/09/18 06:15 Plt Count 286 x1000/uL (130-400) 08/09/18 06:15 MPV 9.1 fL (8.0-11.0) 08/09/18 06:15 Immature Gran % 0.6 08/09/18 06:15 Neutrophils % 58.6 08/09/18 06:15 Lymphocytes % 32.6 08/09/18 06:15 Monocytes % 5.6 08/09/18 06:15 Eosinophils % 2.2 08/09/18 06:15 Basophils % 0.4 08/09/18 06:15 Absolute Neutrophils 4.89 k/cumm (1.2-6.7) 08/09/18 06:15 Absolute Lymphocytes 2.72 k/cumm (1.2-3.4) 08/09/18 06:15 Absolute Monocytes 0.47 k/cumm (0.11-0.7) 08/09/18 06:15 Absolute Eosinophils 0.18 k/cumm (0.0-0.7) 08/09/18 06:15 Absolute Basophils 0.03 k/cumm (0.0-0.2) 08/09/18 06:15 ESR 94 MM/HR (0-15) H 08/02/18 09:45 Sodium 142 mmol/L (136-145) 08/09/18 06:15 Potassium 3.9 mmol/L (3.5-5.1) 08/09/18 06:15 Chloride 105 mmol/L (98-107) 08/09/18 06:15 Carbon Dioxide 26.9 mmol/L (21.0-32.0) 08/09/18 06:15 Anion Gap 10.1 mmol/L (3-11) 08/09/18 06:15 BUN 17 mg/dL (7-18) 08/09/18 06:15 Creatinine 1.31 mg/dL (0.70-1.30) H 08/09/18 06:15 Estimated GFR/1.73 m2 59.72 (mL/min/1.73m2) 08/09/18 06:15 Glucose 126 mg/dL (70-100) H 08/09/18 06:15 Lactate 1.1 mmol/L (0.6-1.4) 08/02/18 09:45 Calcium 8.6 mg/dL (8.5-10.1) 08/09/18 06:15 Magnesium 2.0 mg/dL (1.8-2.4) 08/08/18 05:30 Total Bilirubin 0.5 mg/dL (0.2-1.0) 08/02/18 09:45 AST 17 U/L (15-37) 08/02/18 09:45 ALT 19 U/L (12-78) 08/02/18 09:45 Alkaline Phosphatase 84 U/L (46-116) 08/02/18 09:45 Creatine Kinase 107 U/L (39-308) 08/09/18 06:15 C-Reactive Protein 1.35 mg/dL (0.0-0.3) H 08/09/18 06:15 Total Protein 8.0 g/dL (6.4-8.2) 08/02/18 09:45 Albumin 3.3 g/dL (3.4-5.0) L 08/02/18 09:45 Vancomycin Trough 17.4 ug/mL (10.0-20.0) 08/06/18 06:36
[2018-08-09 20:08] VITALS: BP 138/82; PULSE 73; RESP 18; TEMP 36.2; O2SAT 97
[2018-08-09 22:01] VITALS: TEMP 37.3
[2018-08-10] MEDS: Normal Saline Flush 10 ML SYR IVP ×3 (03:15→13:08)
[2018-08-10] MEDS: HYDROmorphone 2 MG/ML VIAL 0.5 MG IVP ×2 (03:15→10:15)
[2018-08-10 03:36] VITALS: BP 147/92; PULSE 67; RESP 16; TEMP 36.2; O2SAT 98
[2018-08-10 07:29] VITALS: BP 151/93; PULSE 69; RESP 19; TEMP 36.4; O2SAT 98
[2018-08-10] MEDS: Celecoxib 200 MG CAP PO (07:50)
[2018-08-10] MEDS: oxyCODONE 5 MG TAB PO ×3 (07:51→16:39)
[2018-08-10] MEDS: Acetaminophen 500 MG TAB 1000 MG PO ×2 (07:51→13:08)
[2018-08-10 07:54] LABS: Anion Gap 9.7 mmol/L (3-11); BUN 17 mg/dL (7-18); C-Reactive Protein 1.96 mg/dL (0.0-0.3); CO2 27.3 mmol/L (21.0-32.0); CREATININE 1.29 mg/dL (0.70-1.30); Calcium 8.4 mg/dL (8.5-10.1); Chloride 106 mmol/L (98-107); Glucose 109 mg/dL (70-100); Potassium 3.9 mmol/L (3.5-5.1); Sodium 143 mmol/L (136-145)
[2018-08-10] MEDS: Pantoprazole 40 MG TABCR PO (08:58)
--- NOTE | 2018-08-10 10:36 | PDOC.CMPRO ---
- If Service Date Differs Date of service: 08/10/18 Time of Service: 10:36 Care Management Progress Note S/O: Jason was reclining in his chair when HUNTER visited this morning. He is engaged in conversation, makes good eye contact, and is talkative. Jason reports that his drain came out yesterday and his dressings have been needed to be changed two times a day due to drainage, which is frustrating. MD and nursing is aware. Jason and HUNTER discussed swingbed status and Jason had many questions about leaving the hospital during the day between infusions, etc. is watching Jason's labs today as his creatinine numbers have been elevated; anticipate patient will not swing today. Discussion continues to ensue regarding the course of treatment for Jason and the number of weeks required for antibiotics. Jason and HUNTER Mueller are planning on completing Jason's Advanced Directives on Thursday. A: 42 y/o male admitted 08/02/18 for (L) hip soft tissue infection P: Jason will remain at [facility] for IV antibiotics. Jason will transition to a swingbed level of care once medically cleared. Jason will meet with [facility] at time of DC to discuss housing options. He will follow up with Dr. Restrepo and his plan of care as prescribed. Jason's friend/roommate Alonzo will transport via private vehicle when ready.HUNTER will continue to offer support to patient and care team regarding discharge planning and disposition.
--- NOTE | 2018-08-10 10:48 | CMPROGNOTE_ITS ---
- If Service Date Differs Date of service: 08/10/18 Time of Service: 10:36 Care Management Progress Note S/O: Jason was reclining in his chair when HUNTER visited this morning. He is engaged in conversation, makes good eye contact, and is talkative. Jason reports that his drain came out yesterday and his dressings have been needed to be changed two times a day due to drainage, which is frustrating. MD and nursing is aware. Jason and HUNTER discussed swingbed status and Jason had many questi ons about leaving the hospital during the day between infusions, etc. is watching Jason's labs today as his creatinine numbers have been elevated; anticipate patient will not swing today. Discussion continues to ensue regarding the course of treatment for Jason and the number of weeks required for antibiotics. Jason and HUNTER Mueller are planning on completing Jason's Advanced Directives on Thursday. A: 42 y/o male admitted 08/02/18 for (L) hip soft tissue infection P: Jason will remain at [facility] for IV antibiotics. Jason will transition to a swingbed level of care once medically cleared. Jason will meet with [employer] [facility] at time of DC to discuss housing options. He will follow up with Dr. Restrepo and his plan of care as prescribed. Jason's friend/roommate Alonzo zarate ill transport via private vehicle when ready.HUNTER will continue to offer support to patient and care team regarding discharge planning and disposition.
[2018-08-10 11:05] VITALS: BP 147/95; PULSE 61; RESP 20; TEMP 36.8; O2SAT 96
--- NOTE | 2018-08-10 14:01 | W.PM.PROGNOT ---
Date of Service Date of service: 08/10/18 Time of Service: 09:02 Assessment and Plan (1) Psoas abscess, left: Current visit: Yes Status: Acute Jason is a 42yo s/p I&D x 2 for left hip psoas abscess. He continues have some pain in the groin and the left hip area. However, things seem to be improving. His CRP did have a very small bump which to me is insignificant on a day by day basis. Therefore, we will defer on checking CRP for another few days. I have encouraged him to not walk too terribly much that he sets himself back. However, he should continue to walk as he wants to move as he tolerates. We will continue with Ancef 2 g every 8 hours. He does have a known abscess in the psoas tendon. If he continues to have this pain in the groin and pelvic region after another few days of antibiotics we may have to repeat this MRI or CT scan to evaluate for any change in the abscess size and even consider interventional drain placement. Subjective Interval history since last seen: Jason reports to be about the same. His largest complaint is the groin/hip pain. He denies any fever or chills but he does report significant fatigue/malaise. Still able to ambulate, although moving the leg seems to be slightly more painful. Voiding without difficulty. Exam Narrative Exam Narrative: LLE dressing with some serosanguinous discharge. No purulent discyharge. Thigh is full, compressible, and much less tender than previous. Only a small ROM of the hip arc without pain. Objective Objective Clinical Data: Abnormal lab results 08/10/18 Range/Units 06:10 Glucose 109 H (70-100) mg/dL Calcium 8.4 L (8.5-10.1) mg/dL C-Reactive Protein 1.96 H (0.0-0.3) mg/dL Vital Signs Temperature 36.4 C L 08/10/18 07:29 Temperature Source Tympanic 08/10/18 07:29 Pulse 69 08/10/18 07:29 Pulse Rhythm Regular 08/10/18 08:00 Respiratory Rate 19 08/10/18 07:29 Respiratory Effort 08/10/18 08:00 Respiratory Depth Normal 08/10/18 08:00 Respiratory Pattern Normal 08/10/18 08:00 Blood Pressure 151/93 H 08/10/18 07:29 Blood Pressure Position Sitting 08/02/18 08:56 Pulse Oximetry 98 08/10/18 07:29 Respiratory End-tidal CO2 12 08/07/18 11:30 Oxygen Delivery Method Room Air 08/10/18 07:29 Oxygen Flow Rate 0 08/10/18 07:29 Pain Level 8 08/10/18 13:08 Comment 08/09/18 12:34 Intake & Output 08/09/18 08/10/18 08/10/18 23:59 11:59 23:59 Intake Total 880 / 1270 580 / 580 Balance 880 / 1270 580 / 580 Intake: IV 100 / 170 90 / 90 Oral 780 / 1100 490 / 490 Other: Urine Color Yellow Urine Appearance Clear Urine Odor Normal Comment voiding ad floresita, pt denies any GI or issues at this time. urine not assessed Voiding Methods Toilet Laboratory Results WBC 8.34 k/cumm (4.4-10.8) D 08/09/18 06:15 RBC 3.70 m/cumm (4.50-6.00) L 08/09/18 06:15 Hgb 9.7 g/dL (13.5-17.5) L 08/09/18 06:15 Hct 31.9 % (40.0-50.0) L 08/09/18 06:15 MCV 86.2 fL (80-95) 08/09/18 06:15 MCH 26.2 pg (27.0-33.0) L 08/09/18 06:15 MCHC 30.4 g/dL (32.0-36.0) L 08/09/18 06:15 RDW 15.3 % (11.8-14.1) H 08/09/18 06:15 Plt Count 286 x1000/uL (130-400) 08/09/18 06:15 MPV 9.1 fL (8.0-11.0) 08/09/18 06:15 Immature Gran % 0.6 08/09/18 06:15 Neutrophils % 58.6 08/09/18 06:15 Lymphocytes % 32.6 08/09/18 06:15 Monocytes % 5.6 08/09/18 06:15 Eosinophils % 2.2 08/09/18 06:15 Basophils % 0.4 08/09/18 06:15 Absolute Neutrophils 4.89 k/cumm (1.2-6.7) 08/09/18 06:15 Absolute Lymphocytes 2.72 k/cumm (1.2-3.4) 08/09/18 06:15 Absolute Monocytes 0.47 k/cumm (0.11-0.7) 08/09/18 06:15 Absolute Eosinophils 0.18 k/cumm (0.0-0.7) 08/09/18 06:15 Absolute Basophils 0.03 k/cumm (0.0-0.2) 08/09/18 06:15 ESR 94 MM/HR (0-15) H 08/02/18 09:45 Sodium 143 mmol/L (136-145) 08/10/18 06:10 Potassium 3.9 mmol/L (3.5-5.1) 08/10/18 06:10 Chloride 106 mmol/L (98-107) 08/10/18 06:10 Carbon Dioxide 27.3 mmol/L (21.0-32.0) 08/10/18 06:10 Anion Gap 9.7 mmol/L (3-11) 08/10/18 06:10 BUN 17 mg/dL (7-18) 08/10/18 06:10 Creatinine 1.29 mg/dL (0.70-1.30) 08/10/18 06:10 Estimated GFR/1.73 m2 >= 60.00 (mL/min/1.73m2) 08/10/18 06:10 Glucose 109 mg/dL (70-100) H 08/10/18 06:10 Lactate 1.1 mmol/L (0.6-1.4) 08/02/18 09:45 Calcium 8.4 mg/dL (8.5-10.1) L 08/10/18 06:10 Magnesium 2.0 mg/dL (1.8-2.4) 08/08/18 05:30 Total Bilirubin 0.5 mg/dL (0.2-1.0) 08/02/18 09:45 AST 17 U/L (15-37) 08/02/18 09:45 ALT 19 U/L (12-78) 08/02/18 09:45 Alkaline Phosphatase 84 U/L (46-116) 08/02/18 09:45 Creatine Kinase 107 U/L (39-308) 08/09/18 06:15 C-Reactive Protein 1.96 mg/dL (0.0-0.3) H 08/10/18 06:10 Total Protein 8.0 g/dL (6.4-8.2) 08/02/18 09:45 Albumin 3.3 g/dL (3.4-5.0) L 08/02/18 09:45 Vancomycin Trough 17.4 ug/mL (10.0-20.0) 08/06/18 06:36
--- NOTE | 2018-08-10 14:55 | CHAPLAIN ---
Jason was lying on top of his bed when I visited. He said he was recently made a swing-bed patient, which allows him more freedom and he can go outside, he said. His friends continue to visit in the evening.
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
== END 2018-08-10 19:00 | disposition swing bed (61) | DRG 357 ==
LOC: ER 16:02 → MS 16:13
PROVIDERS: Internal Medicine; Nurse Practitioner Acute Care; Student in an Organized Health Care Education/Training Program; Admitting Provider Nurse Practitioner; Emergency Provider Student in an Organized Health Care Education/Training Program; PCP Nurse Practitioner Family; Visit Provider Nurse Practitioner
PROC: 0KBR0ZZ Excision of Left Upper Leg Muscle, Open Approach (ICD-10-PCS; CPT 11046; principal; 2018-08-04 12:00)
PROC: 0JBM0ZZ Excision of Left Upper Leg Subcutaneous Tissue and Fascia, Open Approach (ICD-10-PCS; CPT 11043; principal; 2018-08-07 08:05)
DX: K68.12 Psoas muscle abscess (principal); F31.81 Bipolar II disorder; M00.052 Staphylococcal arthritis, left hip; I96 Gangrene, not elsewhere classified; N17.9 Acute kidney failure, unspecified; B95.61 Methicillin susceptible Staphylococcus aureus infection as the cause of diseases classified elsewhere; M25.552 Pain in left hip; R10.32 Left lower quadrant pain; Z16.29 Resistance to other single specified antibiotic; B19.20 Unspecified viral hepatitis C without hepatic coma; Z59.0 Homelessness; K21.9 Gastro-esophageal reflux disease without esophagitis; F41.9 Anxiety disorder, unspecified
CPT/HCPCS: 11046; 11043 ×2; 36410; 36415; 36569; 80048; 80053; 82550; 85027; 85652; 87040; 87077; 96365; 99222; 99223; 99231; 99232; 99233; 99239; 99285; NC; 73502; 73701; 73723; 74177; 80202; 83605; 83735; 85025; 86140; 87070; 87075; 87186; 87205; J0131; J0690; J1100; J1885; J2250; J2405; J2543; J3010; J3490; Q9967

== ENCOUNTER → 2018-08-04 10:03 | Outpatient (BNVA) | payer MEDICARE, MEDICAID, SELFPAY | PROVIDERS: PCP Nurse Practitioner Family; Referring Provider Nurse Practitioner Family; Visit Provider Student in an Organized Health Care Education/Training Program | DX: R69 Illness, unspecified (principal) ==

== ENCOUNTER → 2018-08-07 12:00 | Outpatient (BNVA) | payer MEDICARE, MEDICAID, SELFPAY | PROVIDERS: PCP Nurse Practitioner Family; Referring Provider Nurse Practitioner Family; Visit Provider Student in an Organized Health Care Education/Training Program | DX: R69 Illness, unspecified (principal) ==

== ENCOUNTER 2018-08-10 18:42 | Inpatient (IN) | payer MEDICARE, MEDICAID, SELFPAY ==
--- NOTE | 2018-08-10 14:20 | CMPROGNOTE_ITS ---
- If Service Date Differs Date of service: 08/10/18 Time of Service: 14:20 Care Management Progress Note S/O: Jason was reclining in his chair when HUNTER visited this morning. He is engaged in conversation, makes good eye contact, and is talkative. Jason reports that his drain came out yesterday and his dressings have been needed to be changed two times a day due to drainage, which is frustrating. MD and nursing is aware. Jason and HUNTER discussed swingbed status and Jason had many questi ons about leaving the hospital during the day between infusions, etc. is watching Jason's labs today as his creatinine numbers have been elevated; anticipate patient will not swing today. Discussion continues to ensue regarding the course of treatment for Jason and the number of weeks required for antibiotics. Jason and HUNTER Mueller are planning on completing Jason's Advanced Directives on Thursday. A: 42 y/o male admitted 08/02/18 for (L) hip soft tissue infection P: Jason will remain at [facility] for IV antibiotics. Jason will transition to a swingbed level of care once medically cleared. Jason will meet with [employer] at time of DC to discuss housing options. He will follow up with Dr. Restrepo and his plan of care as prescribed. Jason's friend/roommate Alonzo zarate ill transport via private vehicle when ready.HUNTER will continue to offer support to patient and care team regarding discharge planning and disposition.
--- NOTE | 2018-08-10 14:21 | CM.SBPSYCH ---
- If Service Date Differs Date of service: 08/10/18 Time of Service: 14:24 SB Psychosocial/Act.Assessment - Hospital Admission Admission Date: 08/02/18 Admission From:: Home. Diagnosis:: Left hip soft tissue infection. - Swing Bed Admission Swing Bed Admit Date:: 08/10/18 Swing Bed Level of Care: Level 1/SNF - Social Supports PREVIOUS FUNCTIONAL STATUS/SOCIAL/FAMILY SUPPORTS:: Jason resides in [place] with his roommate Alonzo. He states that he is independent at baseline, he drives, and manages ADL's. Jason reports that he is on disability for dissociative behaviors and has been on disability for the past 6 years. - Prior to Admission Living Arrangements/Environment Prior to Admission:: Jason resides in an apartment in [place] with a roommate. - Education Highest Grade Completed:: 12th - Work History Employment Status:: Employed, [employer]. Patient reports that he is out of work until November,, at which time he will return to working. - : No 's Spouse: No - Benefits Financial: Medicare - Mandaeism Active Latter Day Member:: No Will Latter Day Members or [employer] Net Visit:: No - Advance Directives for Healthcare If no AD, do you want more information:: Yes - Present Functional Status Physical Abilities:: WNL. Cognitive:: WNL. Communication:: WNL. Sensory Systems: WNL. Behavior:: WNL. 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 Appendectomy. Colonoscopy - MAC (11/14/16). EGD - MAC (11/14/16). Rotator Cuff Repair. Spinal Fusion. Vasectomy - Admission Data Reason for Swing Bed Admission:: TID IV antibiotic treatment. Discharge Plan:: Jason will discharge home following completion of treatment. [employer] Super[employer]: [employer] Date Assessment was completed:: 08/10/18
--- NOTE | 2018-08-10 14:22 | CM.SWINGPC ---
- If Service Date Differs Date of service: 08/10/18 Time of Service: 14:22 Swingbed Plan of Care Plan of care: SWING BED PROGRAM ACTIVITIES/DISCHARGE PLAN OF CARE ACTIVITIES PLAN Date: Identified Need: Intervention/Plan: Initials DISCHARGE PLAN Date: Identified Need: Intervention/Plan: Initials
[2018-08-10] MEDS: Acetaminophen 500 MG TAB 1000 MG PO (20:18)
[2018-08-10] MEDS: Celecoxib 200 MG CAP PO (20:19)
[2018-08-10] MEDS: HYDROmorphone 2 MG/ML VIAL 0.5 MG IVP (20:39)
[2018-08-10] MEDS: Normal Saline Flush 10 ML SYR IVP ×2 (20:40→22:13)
[2018-08-10 21:07] VITALS: BP 165/96; PULSE 83; RESP 19; TEMP 36.7; O2SAT 97
[2018-08-10] MEDS: Normal Saline 500 ML 30 ML IV (22:15)
[2018-08-11] MEDS: HYDROmorphone 2 MG/ML VIAL 0.5 MG IVP ×3 (01:22→20:46)
[2018-08-11] MEDS: Normal Saline Flush 10 ML SYR IVP ×5 (01:24→21:58)
[2018-08-11 01:28] VITALS: BP 142/95; PULSE 69; RESP 18; TEMP 35.8; O2SAT 96
[2018-08-11 08:26] VITALS: BP 154/105; PULSE 72; RESP 18; TEMP 35.8; O2SAT 98
[2018-08-11] MEDS: Celecoxib 200 MG CAP PO ×2 (08:39→19:59)
[2018-08-11] MEDS: Pantoprazole 40 MG TABCR PO (08:39)
[2018-08-11] MEDS: oxyCODONE 5 MG TAB PO ×4 (08:39→17:52)
[2018-08-11] MEDS: Acetaminophen 500 MG TAB 1000 MG PO ×3 (08:40→19:59)
--- NOTE | 2018-08-11 11:28 | PHARADMIT ---
Addendum entered by Susannah Aguirre 08/13/18 13:56: pt to go to [facility] and then back today for tube placement no changes noted in meeting Original Note: Addendum entered by Francesco Luis III 08/12/18 15:09: BP ran high overnight (164/106) OK presently 120/66 SCr-1.59 Labs-WNL Cefazolin continues. Had CT scan yesterday showing no change in size of abscess. Andre following progress. Usinh Dilaudid IV & Oxycodone for pain control Original Note: Addendum entered by Francesco Luis III 08/11/18 11:30: SWING BED PATIENT HERE FOR 2 WEEKS OF IV CEFAZOLIN ABX TREATMENT. VS-OK No Labs Pain: 02/09 Original Note: Admission Pharmacy Clinical Review Left ILEOPSOAS ABSCESS BELOW IS THE ACUTE STAY PHARMACY CLINICAL INTERVENTION: TRISTIAN NORWOOD Male : 1975 Emr# [id number] 08/03/18 09:47 - Pharmacy Review by Dary Rivera Acct Num: [id number] : 1975 Patient Age: 42 Addendum entered by Dary Rivera 08/10/18 16:37: pt. is swinging today, orders on new account BP-147/95 SCr-improved here for antibiotics (2-6 weeks?) Original Note: Addendum entered by Dary Rivera 08/09/18 11:35: Pharmacy Note Subjective Objective bp-167/98 SCr-1.31(up) h/h-9.7/31.9(down) pain-6/10 Assessment cefazolin continues ketorolac discontinued; celecoxib ordered BID protonix ordered daily Plan pt. may swing for antibiotics (2-6 weeks?) Original Note: Addendum entered by Francesco Luis III 08/07/18 12:58: Pharmacy Note Subjective Patient continues to feel poorly, MD going back to OR today for another washout of Psoas abscesss. Objective BP-136/99 Pain:8/10 WBC-7.15 H&H-same Had BM today. Assessment Cefazolin continues. Plan Awaiting post-op note Original Note: Addendum entered by Francesco Luis III 08/06/18 16:27: Pharmacy Note Subjective No growth thus far in blood cultures Objective VS-OK Pain:8/10 H&H-10.5/34.0 WBC-5.74 Plts-291 BM yesterday Assessment Vancomycin & Zosyn switched to Cefazolin 2gm & PO Cipro by Dr.Prohaska Watkins [facility]ER L[facility]STITCH notes that patient is disappointed at not being discharged today. Original Note: Addendum entered by Susannah Aguirre 08/05/18 16:38: Pharmacy Note Subjective pain is better after irrigation and debridement of abscess, some purulent material still draining , may need another irrigation Objective VS ok, WBC normal, H/H down to 10.1/31.6 Assessment vanco trough ordered 08/06@0500, pip/tazo continues, pt ownhome med Mavyret(glecaprevir/pibrentasvir)ordered Plan evaluate vancomycin trough Original Note: Addendum entered by Francesco Luis III 08/04/18 12:46: Pharmacy Note Subjective Infection of muscles of left hip, suspected. MD has taken patient to OR for surgical debridement. Objective Temep-37.2C VS-OK Labs WNL, SCr-1.23 (up) No new wgt, No BM Assessment Vancomycin trough high (24.4) RPh adjusted frequency to 1.5gm IV q10hrs, Zosyn continues. Plan Awaiting return from OR Original Note: Admission Pharmacy Clinical Review Left soft tissue infection Code Status Full Code Current Weight 138.5 kg Renally Cleared and Narrow Therapeutic Index Meds Crcl ~90.00 mL/min current meds okay QTc Value / Action Taken n/a BP Control, Fever BP 108/69 Tmax 37.8 yesterday Electrolytes reviewed within normal limits DVT Prophylaxis none Opiate Usage / Scheduled Bowel Regimen Ordered prn/no Plt/SCr for Heparin / Enoxaparin plt 319 SCr 1.22 INR for Warfarin n/a H/H stable, WBC/Bands h/h 12.2/38.0 wbc 9.53 Antibiotic appropriateness vanco and zosyn for possible infection of the musculature of the left hip per progress note Cultures and Sensitivities blood cultures pending Surgical ABX d/c within 24 hr n/a DM control / Insulin Dosing BG 98 Heart Failure (Check EF%) (PAMELA's, B-Block, Diuretics) none IV to PO Switch n/a Home Meds Reviewed yes Home Meds Not Ordered glecaprevir/pibrentasvir Comments vanco trough ordered for tomorrow @0900 MRI tomorrow morning Initialized on 08/03/18 09:47 - END OF NOTE
--- NOTE | 2018-08-11 13:02 | PGE_ITS ---
Date of Service Date of service: 08/11/18 Time of Service: 12:58 Assessment and Plan (1) Psoas abscess, left: Current visit: No Status: Acute Jason is status post multiple debridements of his left hip. He continues have some pain. His pain seems to be more localized to the left pelvic area in the left groin. This would correspond with the known site of the psoas abscess. At previous debridements and with previous imaging the hip joint itself did not seem to be affected. The entirety surrounding the hip was. I still do not believe the hip joint is i infected. I would continue treating with antibiotics. However, because he is having persistent pain and still feels quite ill, I would like to repeat a CT scan. Would be able to compare this to the one that was performed over the weekend. If the abscess is still present or has increased in size and I would recommend interventional radiology consultation at [facility] for drainage. Otherwise, we should continue with the antibiotics. We will check labs tomorrow. Subjective Interval history since last seen: Jason reports to not be feeling that well today. He is quite tired and fatigued. He denies any prominent chills but has felt just a little off. He just feels ill he reports. He continues have some pain of the left hip and groin area. He points to an area right over the pelvic brim on the left side. He does not report the thigh pain to be getting worse. He has had some drainage on the dressing but denies any purulence outside of that. Exam Narrative Exam Narrative: Jason is laying in the bed. He does not look to be in any distress. He has a slight ashen complexion. Evaluation of the left hip shows some serosanguineous drainage on the dressing. There is no expressible fluid. There is no surrounding erythema. In general, his thigh is much more compressible and less painful than has been in the past. He does not have much pain to palpation throughout the majority of the thigh until I reached the area of his inguinal fold at the level of the pelvic brim the ASIS. He does have pain over this area. He has some mild pain to palpation of the left lower quadrant but no rebound no guarding. He tolerates some internal and external rotation of the leg but only by about 20 degrees of an arc. Objective Objective Clinical Data: Vital Signs Temperature 35.8 C L 08/11/18 08:26 Temperature Source Tympanic 08/11/18 08:26 Pulse 72 08/11/18 08:26 Pulse Rhythm Regular 08/11/18 08:30 Respiratory Rate 18 08/11/18 08:26 Respiratory Effort Non-Labored 08/11/18 08:30 Respiratory Depth Normal 08/11/18 08:30 Respiratory Pattern Normal 08/11/18 08:30 Blood Pressure 154/105 H 08/11/18 08:26 Pulse Oximetry 98 08/11/18 08:26 Oxygen Delivery Method Room Air 08/11/18 08:26 Oxygen Flow Rate 0 08/11/18 08:26 Pain Level 7 08/11/18 11:52 Comment 08/11/18 08:26 Intake & Output 08/10/18 08/11/18 08/11/18 23:59 11:59 23:59 Intake Total 240 / 240 147.5 / 147.5 Balance 240 / 240 147.5 / 147.5 Weight 138.5 kg 148.6 kg Intake: IV 147.5 / 147.5 Oral 240 / 240 Other: Urine Appearance Clear Clear Comment pt voiding independently in bathroom; urine not assessed at this time. pt denies GI/ issues Voiding Methods Toilet
--- NOTE | 2018-08-11 14:23 | DI.CT_ITS ---
SYMPTOMS/DIAGNOSIS: LEFT ILIOPSOAS ABSCESS CT SCAN OF THE LEFT LOWER EXTREMITY FOLLOWING CONTRAST ADMINISTRATION: Comparison examination is 08/08/18. There is asymmetric enlargement of the left iliopsoas muscle and infiltrative changes involving the left sartorius muscle and tensor fasciae latae. Since the prior examination, the drainage catheter has been removed. There is a small amount of residual contrast again seen in the distal aspect of the iliopsoas muscle, consistent with contrast. The collection is decreased in size compared to the prior examination. No other definite fluid collection is seen in the soft tissues. There are surgical clips seen in the left inguinal region. No significant adenopathy is appreciated. The bones are intact. No findings to suggest osteomyelitis are present. The pelvic findings show diverticulosis of the colon, but no findings to suggest diverticulitis. There are postsurgical changes of posterior spinal fusion. IMPRESSION: 1. Interval decrease in size of the contrast collection in the distal left iliopsoas muscle. 2. No evidence of a second fluid collection or abscess. 3. Interval removal of the drainage catheter. 4. Asymmetric enlargement and infiltrative changes seen in the left iliopsoas muscle, left sartorius and the tensor fasciae latae. This may represent residual edema, inflammation or infection.
[2018-08-11] MEDS: Omnipaque 350 MG/ML 100 ML BTL IJ (14:46)
[2018-08-11] MEDS: Omnipaque 350 MG/ML 50 ML BTL IJ (14:47)
[2018-08-11 16:34] VITALS: BP 167/98; PULSE 69; RESP 18; TEMP 35.8; O2SAT 98
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
[2018-08-11 21:03] VITALS: BP 164/106; PULSE 76; RESP 20; TEMP 36.6; O2SAT 95
[2018-08-12 00:44] VITALS: BP 155/114; PULSE 72; RESP 18; TEMP 36.7; O2SAT 95
[2018-08-12] MEDS: HYDROmorphone 2 MG/ML VIAL 0.5 MG IVP ×4 (00:51→17:43)
[2018-08-12] MEDS: Normal Saline Flush 10 ML SYR IVP ×7 (00:52→21:12)
[2018-08-12 07:35] VITALS: BP 130/86; PULSE 67; RESP 18; TEMP 36.6; O2SAT 97
[2018-08-12 07:55] LABS: HCT 34.5 % (40.0-50.0); HGB 10.7 g/dL (13.5-17.5); Mean Corpuscular Hemoglobin 26.4 pg (27.0-33.0); Mean Platelet Volume 8.9 fL (8.0-11.0); Platelet Count 281 x1000/uL (130-400); RBC 4.06 m/cumm (4.50-6.00); RBC Distribution Width 15.8 % (11.8-14.1); White Blood Cell Count 7.25 k/cumm (4.4-10.8)
[2018-08-12 08:12] LABS: Anion Gap 9.9 mmol/L (3-11); BUN 19 mg/dL (7-18); CO2 28.1 mmol/L (21.0-32.0); CREATININE 1.59 mg/dL (0.70-1.30); Calcium 8.8 mg/dL (8.5-10.1); Chloride 102 mmol/L (98-107); Estimated GFR 47.76 (mL/min/1.73m2); Glucose 128 mg/dL (70-100); Potassium 4.5 mmol/L (3.5-5.1); Sodium 140 mmol/L (136-145)
[2018-08-12] MEDS: Acetaminophen 500 MG TAB 1000 MG PO ×3 (09:14→20:11)
[2018-08-12] MEDS: Celecoxib 200 MG CAP PO ×2 (09:15→20:12)
[2018-08-12] MEDS: Pantoprazole 40 MG TABCR PO (09:15)
[2018-08-12] MEDS: oxyCODONE 5 MG TAB PO ×2 (09:15→16:23)
--- NOTE | 2018-08-12 12:09 | PGE_ITS ---
Date of Service Date of service: 08/12/18 Time of Service: 12:04 Assessment and Plan (1) Psoas abscess, left: Current visit: No Status: Acute Jason is a 42-year-old who has persistent infection about the left hip and a psoas abscess. In summary, he had an infection in this area approximately 6 or so years ago. From his recollection this was treated with multiple surgeries in [place]. This incision which was made was a anterior medial incision, similar to a [place] approach, with extension over the anterior ilium. We are uncertain of what bacteria grew and what all was involved with its treatment. At that time, he was an active IV drug user with injection sites in his legs always. He has been clean for 5 years and prior to this presentation he has had no premorbid symptoms of this left hip. He does have a known spinal fusion and has some chronic low back pain which has not changed. He presented with increasing chills and subjective fevers and pain to the left hip and thigh. He was treated initially with antibiotics. MRI was able to be obtained after the 's holiday which showed extensive purulent accumulation within the psoas muscle, tendon, and sheath and along the entire proximal left thigh. I took him to the operating room on August 04 and utilized the distal aspect of the previous incision. There was a lot of inflammatory tissue which was encountered. As I reached the anterior sheath of the sartorius there is an obvious defect in the sartorius muscle. I opened the sheath and immediately there was significant amount of purulent material encountered. I did not enter into a true sartorius/TFL interval. The infection disrupted the sartorius muscle and there is a defect. Through this hole I was able to palpate straight down to the proximal femur. A large amount of purulent material was removed and was sent to the lab, eventually returning MSSA. I debrided some necrotic inflammatory tissue which was seen throughout the wound. There is copious amounts. A drain was left within the wound. He was started initially on broad-spectrum antibiotics, vancomycin and Zosyn. This was transitioned to cefazolin 2 g every 8 hours once MSSA was identified. He continued to have pain within the left thigh and there was some purulent drainage which started about 2 days out from the initial debridement. Therefore, I took him back on August 07 for repeat irrigation and debridement. I once again use the same interval and the same approach. I was mindful of the crossing neurovascular structures in the distal aspect of the wound. I investigated the wound which did not have any purulent material but did have significant amount of necrotic, infectious appearing tissue. I scraped out multiple kidney base and folds of this material from within the medial thigh and groin region. The hip capsule itself did not seem to be violated. There was no soft spots of the acetabulum. I was able to manually palpate the psoas tendon and debrid it with a curette. I felt uncomfortable trying to extend this incision into the medial thigh with a known vascular tissues and the previous vascular clips identifying likely vascular involvement during the first procedure in [place]. There is a large cavity which was debrided as fully as I possibly could over the medial thigh which was medial to the lesser trochanter and distal over the medial aspect of the femur. This was done relatively blindly by palpation given limited exposure due to neurovascular elements. After complete debridement and irrigation I then left a small amount of calcium phosphate material which was embedded with 2.4 g of tobramycin. A drain was placed. This drain came out on postop day #2. He was kept on cefazolin 2 g every 8. His C-reactive protein dropped quite expeditiously after this debridement down to 1.4. Unfortunately, he continued to feel unwell. This only worsened and by postop day #4 from the second debridement he had chills, malaise, and an increasing CRP to 4.5. His wound also started having purulent drainage on this day, today. A repeat CT scan was evaluated for any possible area of abscess collection. It was reviewed with [facility] interventional radiology who did not believe that there was any drainable abscess within the psoas tendon or within the pelvis or thigh itself. Given the failure of 2 previous surgeries, the complexity of the surgery, the recurrence on what it seems to be appropriate antibiotics, I do think Jason be best served in [facility]. It is likely he will need further surgical debrid ements. This likely will require some involvement with general surgery and those more skilled and knowledgeable about dissection of the medial thigh especially given previous vascular clips. While he has had no fevers he continues to feel ill and his CRP has rebounded negatively. I reviewed his extensively with Jason and he just wants to feel better. I will discussed this with the hospitalist and we will work towards getting Jason down to [facility] for higher level care. Subjective Interval history since last seen: Jason reports to unfortunately still be feeling ill. He denies any fevers but has had some chills. He reports continued malaise along with left proximal thigh, hip and groin, and left lower quadrant pain. He is still able to ambulate. He does so with some difficulty but he is not using an assistive device. He feels like the pain is again very medial and within the left lower quadrant. He reports some increasing drainage of his dressing. The dressing was last changed 2 days ago. He did go for a CT scan yesterday which showed no interval change in the size of the abscess and some resolution of the thigh inflammation but still with some continued enlargement of the thigh musculature including the sartorius, rectus femoris, and tensor fascia jelly. Exam Narrative Exam Narrative: Jason returns today from taking a shower. He is able to ambulate into the room with a shortened gait stride. His gait is antalgic. He still has a slightly ashen complexion but otherwise shows no other signs of being severely ill. His eyes are anicteric. His head neck motions are full. His neck is soft without mass. Evaluation of the left hip shows significant drainage to his dressing. This is much different than it was of the last inspection in the last dressing change 2 days ago. The dressing is removed and there is a seropurulent material expressing from the wound. I was able to express a large amount of seropurulent material. There is no palpable area of fluctuance. There is no mass. There is no erythema. The thigh itself was compressible and not as painful as during other examinations. He tolerates approximately 5 or so degrees of internal rotation and 15 degrees of external rotation. Anything past this point causes pain. He is unable to flex the left hip without significant pain. He has pain to palpation throughout the inguinal region and the medial groin extending medial to the incision. He has significant pain along the pelvic brim and within the left lower quadrant. There is no rebound or guarding. He has decreased sensation over the distribution of the lateral femoral cutaneous nerve. No crepitus with palpation. Objective Objective Clinical Data: Abnormal lab results 08/12/18 08/12/18 Range/Units 07:00 07:00 RBC 4.06 L (4.50-6.00) m/cumm Hgb 10.7 L (13.5-17.5) g/dL Hct 34.5 L (40.0-50.0) % MCH 26.4 L (27.0-33.0) pg MCHC 31.0 L (32.0-36.0) g/dL RDW 15.8 H (11.8-14.1) % BUN 19 H (7-18) mg/dL Creatinine 1.59 H (0.70-1.30) mg/dL Glucose 128 H (70-100) mg/dL C-Reactive Protein 4.70 H (0.0-0.3) mg/dL Vital Signs Temperature 36.6 C 08/12/18 07:35 Temperature Source Tympanic 08/12/18 07:35 Pulse 67 08/12/18 07:35 Pulse Rhythm Regular 08/11/18 23:03 Respiratory Rate 18 08/12/18 07:35 Respiratory Effort 08/11/18 23:03 Respiratory Depth Normal 08/11/18 23:03 Respiratory Pattern Normal 08/11/18 23:03 Blood Pressure 130/86 08/12/18 07:35 Pulse Oximetry 97 08/12/18 07:35 Oxygen Delivery Method Room Air 08/12/18 07:35 Oxygen Flow Rate 0 08/12/18 07:35 Pain Level 7 08/12/18 09:15 Comment 08/12/18 03:45 Intake & Output 08/11/18 08/12/18 08/12/18 23:59 11:59 23:59 Intake Total 580 / 777.5 360 / 360 Balance 580 / 777.5 360 / 360 Weight 142.7 kg Intake: IV 100 / 297.5 Oral 480 / 480 360 / 360 Other: Urine Appearance Clear Laboratory Results WBC 7.25 k/cumm (4.4-10.8) 08/12/18 07:00 RBC 4.06 m/cumm (4.50-6.00) L 08/12/18 07:00 Hgb 10.7 g/dL (13.5-17.5) L 08/12/18 07:00 Hct 34.5 % (40.0-50.0) L 08/12/18 07:00 MCV 85.0 fL (80-95) 08/12/18 07:00 MCH 26.4 pg (27.0-33.0) L 08/12/18 07:00 MCHC 31.0 g/dL (32.0-36.0) L 08/12/18 07:00 RDW 15.8 % (11.8-14.1) H 08/12/18 07:00 Plt Count 281 x1000/uL (130-400) 08/12/18 07:00 MPV 8.9 fL (8.0-11.0) 08/12/18 07:00 Sodium 140 mmol/L (136-145) 08/12/18 07:00 Potassium 4.5 mmol/L (3.5-5.1) 08/12/18 07:00 Chloride 102 mmol/L (98-107) 08/12/18 07:00 Carbon Dioxide 28.1 mmol/L (21.0-32.0) 08/12/18 07:00 Anion Gap 9.9 mmol/L (3-11) 08/12/18 07:00 BUN 19 mg/dL (7-18) H 08/12/18 07:00 Creatinine 1.59 mg/dL (0.70-1.30) H 08/12/18 07:00 Estimated GFR/1.73 m2 47.76 (mL/min/1.73m2) 08/12/18 07:00 Glucose 128 mg/dL (70-100) H 08/12/18 07:00 Calcium 8.8 mg/dL (8.5-10.1) 08/12/18 07:00 C-Reactive Protein 4.70 mg/dL (0.0-0.3) H 08/12/18 07:00
[2018-08-12] MEDS: Normal Saline 500 ML 30 ML IV (13:53)
[2018-08-12 15:49] VITALS: BP 145/77; PULSE 74; RESP 20; TEMP 36.3; O2SAT 100
--- NOTE | 2018-08-12 18:01 | W.PM.PROGNOT ---
Date of Service Date of service: 08/12/18 Time of Service: 18:01 Assessment and Plan (1) Psoas abscess, left: Current visit: No Status: Acute S/p debridement x2 with Dr. Restrepo. His swelling has improved. He continues to have pain. Follow up CT to reassess Psoas tendon abscess notes decrease in size of abscess, however, CRP is significantly higher today. Case discussed with [place] [facility] guided drain placement [place] [facility] [place] 1300. NPO after MN tonight. Continue IV ancef. (2) DVT prophylaxis: Current visit: No Status: Acute SCDs for mechanical DVT prophylaxis. He ambulates frequently in the wood. Continue to encourage oral hydration and frequent ambulation. (3) Discharge planning issues: Current visit: No Status: Acute He is on swing bed status for ongoing IV antibiotics for likely 4-6 weeks. This case was discussed with Dr. Connell who is in agreement. Subjective Interval history since last seen: Jason continue to have a significant amount of pain in his L hip and left lower abdomen. He feels like the left thigh is becoming more tight. The incision is still draining. He is overall not feeling well. He continues to ambulate frequently in the wood. He is eating and drinking without nausea. His CRP is elevated today. He had some elevated blood pressures overnight but his blood pressure has improved today. We discussed that he is going to [facility] [place] CT guided drain to be placed tomorrow. He is pleased that he does not have to transfer and that he will return here for care. He is hopeful that a drain will improve his pain. Exam Narrative Exam Narrative: General: laying on his right side in bed, awake and alert, in NAD. Psyche: making good eye contact, answering questions appropriately HEENT: Normocephalic, atraumatic. pupils equal and round. MMM. edentulous on top. Neck: supple, no JVD. Respiratory: respirations even and unlabored, lung sounds CTA throughout. Cardiovascular: heart with regular rate and rhythm, no murmur appreciated, no clicks, gallops or rubs. GI: +bs x4, abdomen soft, tender in the right lower quadrant, no masses appreciated. Extremities: left anterior thigh with dressing intact. No significant edema to the left thigh, no erythema noted around the dressing. Incision not viewed today, nursing reports possible purulent drainage coming through dressing- to be changed by Dr. Restrepo. Mild tenderness on palpation. LLE ROM intact. Peripheral pulses palpable bilaterally. Objective Objective Clinical Data: Abnormal lab results 08/12/18 08/12/18 Range/Units 07:00 07:00 RBC 4.06 L (4.50-6.00) m/cumm Hgb 10.7 L (13.5-17.5) g/dL Hct 34.5 L (40.0-50.0) % MCH 26.4 L (27.0-33.0) pg MCHC 31.0 L (32.0-36.0) g/dL RDW 15.8 H (11.8-14.1) % BUN 19 H (7-18) mg/dL Creatinine 1.59 H (0.70-1.30) mg/dL Glucose 128 H (70-100) mg/dL C-Reactive Protein 4.70 H (0.0-0.3) mg/dL Vital Signs Temperature 36.3 C L 08/12/18 15:49 Temperature Source Tympanic 08/12/18 15:49 Pulse 74 08/12/18 15:49 Pulse Rhythm Regular 08/11/18 23:03 Respiratory Rate 20 08/12/18 15:49 Respiratory Effort Non-Labored 08/12/18 09:00 Respiratory Depth Normal 08/12/18 09:00 Respiratory Pattern Normal 08/12/18 09:00 Blood Pressure 145/77 H 08/12/18 15:49 Pulse Oximetry 100 08/12/18 15:49 Oxygen Delivery Method Room Air 08/12/18 15:49 Oxygen Flow Rate 0 08/12/18 15:49 Pain Level 8 08/12/18 17:43 Comment 08/12/18 03:45 Intake & Output 08/11/18 08/12/18 08/12/18 23:59 11:59 23:59 Intake Total 580 / 777.5 440 / 460 20 / 460 Balance 580 / 777.5 440 / 460 20 / 460 Weight 142.7 kg Intake: IV 100 / 297.5 80 / 100 20 / 100 Oral 480 / 480 360 / 360 Other: Urine Appearance Clear Comment Patient is voiding independently in the toilet Laboratory Results WBC 7.25 k/cumm (4.4-10.8) 08/12/18 07:00 RBC 4.06 m/cumm (4.50-6.00) L 08/12/18 07:00 Hgb 10.7 g/dL (13.5-17.5) L 08/12/18 07:00 Hct 34.5 % (40.0-50.0) L 08/12/18 07:00 MCV 85.0 fL (80-95) 08/12/18 07:00 MCH 26.4 pg (27.0-33.0) L 08/12/18 07:00 MCHC 31.0 g/dL (32.0-36.0) L 08/12/18 07:00 RDW 15.8 % (11.8-14.1) H 08/12/18 07:00 Plt Count 281 x1000/uL (130-400) 08/12/18 07:00 MPV 8.9 fL (8.0-11.0) 08/12/18 07:00 Sodium 140 mmol/L (136-145) 08/12/18 07:00 Potassium 4.5 mmol/L (3.5-5.1) 08/12/18 07:00 Chloride 102 mmol/L (98-107) 08/12/18 07:00 Carbon Dioxide 28.1 mmol/L (21.0-32.0) 08/12/18 07:00 Anion Gap 9.9 mmol/L (3-11) 08/12/18 07:00 BUN 19 mg/dL (7-18) H 08/12/18 07:00 Creatinine 1.59 mg/dL (0.70-1.30) H 08/12/18 07:00 Estimated GFR/1.73 m2 47.76 (mL/min/1.73m2) 08/12/18 07:00 Glucose 128 mg/dL (70-100) H 08/12/18 07:00 Calcium 8.8 mg/dL (8.5-10.1) 08/12/18 07:00 C-Reactive Protein 4.70 mg/dL (0.0-0.3) H 08/12/18 07:00
[2018-08-12 20:58] VITALS: BP 141/88; PULSE 78; RESP 18; TEMP 36.3; O2SAT 97
[2018-08-12] MEDS: HYDROmorphone 2 MG/ML VIAL IVP (21:19)
[2018-08-13] MEDS: HYDROmorphone 2 MG/ML VIAL IVP ×4 (01:43→21:04)
[2018-08-13] MEDS: Normal Saline Flush 10 ML SYR IVP ×4 (01:44→21:04)
[2018-08-13 03:05] VITALS: BP 143/79; PULSE 76; RESP 18; TEMP 37.8; O2SAT 96
[2018-08-13 07:34] VITALS: BP 151/108; PULSE 67; RESP 20; TEMP 36.2; O2SAT 96
[2018-08-13] MEDS: Acetaminophen 500 MG TAB 1000 MG PO ×3 (08:26→20:00)
[2018-08-13] MEDS: Celecoxib 200 MG CAP PO ×2 (08:26→20:00)
[2018-08-13] MEDS: ALPRAZolam 0.5 MG TAB PO ×2 (08:27→17:05)
[2018-08-13] MEDS: oxyCODONE 5 MG TAB PO ×2 (08:27→11:40)
[2018-08-13] MEDS: Pantoprazole 40 MG TABCR PO (08:27)
--- NOTE | 2018-08-13 14:14 | PDOC.CMACT ---
- If Service Date Differs Date of service: 08/13/18 Time of Service: 14:14 Care Management Activity Note Jason is in a swingbed level of care for 4-6 weeks of IV antibiotics. Jason enjoys watching TV, walking in the halls, and visiting with family members. Jason went to [facility] today for interventional radiology via [facility] which was arranged by the nursing data control clerk supervisor. Jason to continue in the swingbed level of care throughout his course of IV treatment 4-6 weeks. CM to continue to offer activities from the activity cart. P: Jason will DC to the community once medically cleared. He states that he does not have permanent housing, and plans to work with economic services to obtain housing at time of DC.
--- NOTE | 2018-08-13 14:28 | CMACTNOTE_ITS ---
- If Service Date Differs Date of service: 08/13/18 Time of Service: 14:14 Care Management Activity Note Jason is in a swingbed level of care for 4-6 weeks of IV antibiotics. Jason enjoys watching TV, walking in the halls, and visiting with family members. Jason went to [facility] today for interventional radiology via [facility] which was arranged by the nursing electronics processing supervisor. Jason to continue in the swingbed level of care throughout his course of IV treatment 4-6 weeks. CM to continue to offer activities from the activity cart. P: Jason will DC to the community once medically cleared. He states that he does not have permanent housing, and plans to work with economic services to obtain housing at time of DC.
--- NOTE | 2018-08-13 17:40 | NUR.NOTE ---
Nursing Note: This nurse receives call from [facility] that they are unable to achieve placing the drain into the patient today, they stated thatn he became too agitated and they felt it was unsafe to continue. I address this concern to md via the clinical transitions rn care coordinator, i also advise her that [facility] stated that the patient had asked for an ama slip there. when he arrives back to the floor via [facility] , the emt. s stated that he intended to go ama. I went and spoke to the patient, he was visibly upset, he said he told them at [facility] that he suffered with high anxiety, and they were making him feel very uncomfortable. He said they would not take time to answer his questions, just continue forward with the procedure. He told men that he was going home. I asked him to please sit down and hear me out for a couple of minutes. He sat on the bed. i explained to him that he had an infection. He agreed and understood that. I further explained that if he left ama without finishing his course of antibiotics, that he would possibly end up with the infection in his blood, and possibly in his heart, and that at the point it was uncertain if a course of treatment could help him. His concern was that he needed a drain to fully heal. I told im there were options, and that he needed to stay and talk with DR. Restrepo about that. By the end of our conversation, patient was noticeably calmer, and he agreed to stay for now and continue his course of treatment
--- NOTE | 2018-08-13 20:00 | W.PM.PROGNOT ---
Date of Service Date of service: 08/13/18 Time of Service: 20:00 Subjective Interval history since last seen: Patient went to [facility] for an attempt to place an IR drain into the abscess. Unfortunately, he was too anxious to proceed, even after administration of 4 mg of versed and 250 mcg of fentanyl. At that point, the decision was made to abort the operation. It is felt that the patient would do better with either another attempted IR drainage with anesthesia team OR with a surgical I&D including vascular and general surgeons. We were instructed to contact [facility] to try to arrange this procedure in the near future. Meanwhile, the patient returned to [facility] for continued antibiotic therapy. Objective Objective Clinical Data: Vital Signs Temperature 36.2 C L 08/13/18 07:34 Temperature Source Tympanic 08/13/18 07:34 Pulse 67 08/13/18 07:34 Pulse Rhythm Regular 08/13/18 10:53 Respiratory Rate 20 08/13/18 07:34 Respiratory Effort 08/13/18 10:53 Respiratory Depth Normal 08/13/18 10:53 Respiratory Pattern Normal 08/13/18 10:53 Blood Pressure 151/108 H 08/13/18 07:34 Pulse Oximetry 96 08/13/18 07:34 Oxygen Delivery Method Room Air 08/13/18 07:34 Oxygen Flow Rate 0 08/13/18 07:34 Pain Level 3 08/13/18 18:26 Comment 08/13/18 03:05 Intake & Output 08/12/18 08/13/18 08/13/18 23:59 11:59 23:59 Intake Total 398.5 / 838.5 290 / 290 Balance 398.5 / 838.5 290 / 290 Weight 142.3 kg Intake: IV 398.5 / 478.5 50 / 50 Oral 240 / 240 Other: Urine Appearance Clear Laboratory Results WBC 7.25 k/cumm (4.4-10.8) 08/12/18 07:00 RBC 4.06 m/cumm (4.50-6.00) L 08/12/18 07:00 Hgb 10.7 g/dL (13.5-17.5) L 08/12/18 07:00 Hct 34.5 % (40.0-50.0) L 08/12/18 07:00 MCV 85.0 fL (80-95) 08/12/18 07:00 MCH 26.4 pg (27.0-33.0) L 08/12/18 07:00 MCHC 31.0 g/dL (32.0-36.0) L 08/12/18 07:00 RDW 15.8 % (11.8-14.1) H 08/12/18 07:00 Plt Count 281 x1000/uL (130-400) 08/12/18 07:00 MPV 8.9 fL (8.0-11.0) 08/12/18 07:00 Sodium 140 mmol/L (136-145) 08/12/18 07:00 Potassium 4.5 mmol/L (3.5-5.1) 08/12/18 07:00 Chloride 102 mmol/L (98-107) 08/12/18 07:00 Carbon Dioxide 28.1 mmol/L (21.0-32.0) 08/12/18 07:00 Anion Gap 9.9 mmol/L (3-11) 08/12/18 07:00 BUN 19 mg/dL (7-18) H 08/12/18 07:00 Creatinine 1.59 mg/dL (0.70-1.30) H 08/12/18 07:00 Estimated GFR/1.73 m2 47.76 (mL/min/1.73m2) 08/12/18 07:00 Glucose 128 mg/dL (70-100) H 08/12/18 07:00 Calcium 8.8 mg/dL (8.5-10.1) 08/12/18 07:00 C-Reactive Protein 4.70 mg/dL (0.0-0.3) H 08/12/18 07:00
[2018-08-13 22:23] VITALS: BP 120/69; PULSE 82; RESP 20; TEMP 36.2; O2SAT 95
[2018-08-14 00:26] VITALS: BP 152/97; PULSE 74; RESP 19; TEMP 36; O2SAT 96
--- NOTE | 2018-08-14 04:30 | NUR.NOTE ---
Nursing Note: 7P to 7A shift: Patient been calmed and more relax. Medicated with Dilaudid for pain rated 8. and with good relief. No further voice complaints. Midline flushed, had traced of blood returned. Call lights at reach.
[2018-08-14] MEDS: HYDROmorphone 2 MG/ML VIAL IVP ×4 (05:16→21:08)
[2018-08-14] MEDS: Normal Saline Flush 10 ML SYR IVP ×5 (05:16→21:08)
[2018-08-14 07:36] VITALS: BP 156/104; PULSE 67; RESP 20; TEMP 36; O2SAT 97
[2018-08-14] MEDS: Celecoxib 200 MG CAP PO ×2 (09:46→20:37)
[2018-08-14] MEDS: ALPRAZolam 0.5 MG TAB PO ×2 (09:46→21:11)
[2018-08-14] MEDS: Pantoprazole 40 MG TABCR PO (09:47)
[2018-08-14] MEDS: Acetaminophen 500 MG TAB 1000 MG PO ×3 (09:47→20:37)
[2018-08-14] MEDS: oxyCODONE 5 MG TAB PO ×2 (09:52→20:37)
--- NOTE | 2018-08-14 15:30 | NUR.NOTE ---
Nursing Note: patient assessed on the return to then unit, gauze wrap not adhered to the picc line, clinical health care liaison notified, equipment needed for urine collection set to room in the event provider wants tox screen
[2018-08-14 16:35] VITALS: BP 131/85; PULSE 80; RESP 20; TEMP 36.4; O2SAT 97
[2018-08-14 23:48] VITALS: BP 148/93; PULSE 79; RESP 19; TEMP 37.1; O2SAT 98
[2018-08-15] MEDS: HYDROmorphone 2 MG/ML VIAL IVP ×5 (04:25→20:51)
[2018-08-15] MEDS: Normal Saline Flush 10 ML SYR IVP ×7 (04:25→21:29)
[2018-08-15] MEDS: oxyCODONE 5 MG TAB PO ×2 (05:27→10:55)
[2018-08-15] MEDS: Acetaminophen 500 MG TAB 1000 MG PO ×3 (08:50→19:17)
[2018-08-15] MEDS: Pantoprazole 40 MG TABCR PO (08:50)
[2018-08-15] MEDS: Celecoxib 200 MG CAP PO ×2 (08:50→19:17)
[2018-08-15 09:49] VITALS: BP 154/90; PULSE 91; RESP 20; TEMP 36.5; O2SAT 97
[2018-08-15 09:56] LABS: *AMPHETAMINES SCREEN URINE Negative (Negative); *BARBITURATES SCREEN URINE Negative (Negative); *BENZODIAZEPINES SCREEN URINE POSITIVE (Negative); Cannabinoids THC Negative (Negative); Cocaine Screen,Urine Negative (Negative); METHADONE URINE SCREEN Negative (Negative); OPIATES URINE SCREEN POSITIVE (Negative)
[2018-08-15 09:58] LABS: Tricyclic Antidepressants Negative (Negative)
[2018-08-15] MEDS: ALPRAZolam 0.5 MG TAB PO (11:01)
[2018-08-15 17:02] VITALS: BP 157/84; PULSE 86; RESP 18; TEMP 36.6; O2SAT 97
[2018-08-15 19:30] VITALS: BP 154/77; PULSE 85; RESP 20; TEMP 37; O2SAT 98
[2018-08-15 19:50] VITALS: BP 146/98; PULSE 89; RESP 20; TEMP 36.2; O2SAT 97
[2018-08-15 20:33] VITALS: BP 146/98; PULSE 89; RESP 20; TEMP 36.2; O2SAT 97
[2018-08-16] MEDS: Normal Saline Flush 10 ML SYR IVP ×7 (00:12→16:53)
[2018-08-16] MEDS: HYDROmorphone 2 MG/ML VIAL IVP ×5 (00:12→16:53)
[2018-08-16] MEDS: Celecoxib 200 MG CAP PO (07:45)
[2018-08-16] MEDS: Pantoprazole 40 MG TABCR PO (07:45)
[2018-08-16] MEDS: ALPRAZolam 0.5 MG TAB PO ×2 (07:45→16:49)
[2018-08-16] MEDS: oxyCODONE 5 MG TAB PO (07:45)
[2018-08-16] MEDS: Acetaminophen 500 MG TAB 1000 MG PO ×2 (07:45→14:21)
[2018-08-16 11:02] VITALS: BP 153/88; PULSE 84; RESP 18; TEMP 36.3; O2SAT 98
[2018-08-16 16:15] VITALS: BP 153/115; PULSE 85; RESP 18; TEMP 36.8
--- NOTE | 2018-08-16 16:33 | W.PM.DS.N ---
Date of service: 08/16/18 Time of Service: 16:33 DS: Diagnosis Discharge Diagnosis (1) Psoas abscess, left: Status: Acute (2) DVT prophylaxis: Status: Acute (3) Discharge planning issues: Status: Acute Discharge Plan Disposition Patient Disposition: [facility] Condition: Stable Discharge Details Reason For Visit: L ILEOPSOAS ABSCESS Admit Date/Time: 08/10/18 18:42 Admit Provider: Denise Connell Attending Provider: Denise Connell Primary Care Provider: Ahsely Mueller [facility] Course Hospital Course: Jason is a 42-year-old who has persistent infection about the left hip and a psoas abscess. In summary, he had an infection in this area approximately 6 or so years ago. From his recollection this was treated with multiple surgeries in [place]. This incision which was made was a anterior medial incision, similar to a [place] approach, with extension over the anterior ilium - uncertain of what bacteria grew and what all was involved with its treatment. At that time, he was an active IV drug user with injection sites in his legs. He has been clean for 5 years and prior to this presentation he has had no symptoms of this left hip. He does have a known spinal fusion and has some chronic low back pain which has not changed. He presented with increasing chills and subjective fevers and pain to the left hip and thigh. He was treated initially with antibiotics. MRI was able to be obtained after the holiday which showed extensive purulent accumulation within the psoas muscle, tendon, and sheath and along the entire proximal left thigh. Mr. Cuevas was taken to the operating room on August 04 and utilized the distal aspect of the previous incision. There was a lot of inflammatory tissue encountered, with obvious defect in the sartorius muscle noted. Upon opening of the sheath there was significant amount of purulent material encountered. The infection disrupted the sartorius muscle and there was a defect noted, through which the surgeon palpated straight down to the proximal femur. A large amount of purulent material was removed and was sent to the lab, eventually returning with MSSA. There was note of debridement of some necrotic inflammatory tissue which was seen throughout the wound. A drain was left within the wound. He was started initially on broad-spectrum antibiotics, vancomycin and Zosyn, transitioned to cefazolin 2 g every 8 hours once MSSA was confirmed. The patient continued to have pain within the left thigh and there was some purulent drainage which started about 2 days out from the initial debridement. He was taken back on August 07 for repeat irrigation and debridement. The wound was investigated, which did not reveal any purulent material but did have significant amount of necrotic, infectious appearing tissue. The hip capsule itself did not seem to be violated. There was no soft spots of the acetabulum. Due to the discomfort of the surgeon there was not an attempt to extend this incision into the medial thigh with a known vascular tissues and the previous vascular clips identifying likely vascular involvement during the first procedure in [place]. There is a large cavity which was debrided as fully as possible over the medial thigh which was medial to the lesser trochanter and distal over the medial aspect of the femur. This was done relatively blindly by palpation given limited exposure due to neurovascular elements. After complete debridement and irrigation a drain was placed. This drain came out on postop day #2. He was kept on cefazolin 2 g every 8. The patient's C-reactive protein had initially dropped quite expeditiously after this debridement down to 1.4. Unfortunately, he continued to feel unwell. This only worsened and by postop day #4 from the second debridement he had chills, malaise, and an increasing CRP to 4.5. His wound also started having purulent drainage on this day, and has continued until today. A repeat CT scan was evaluated for any possible area of abscess collection. It was reviewed with [facility] interventional radiology who did not believe that there was any drainable abscess within the psoas tendon or within the pelvis or thigh itself. Given the failure of 2 previous surgeries, the complexity of the surgery, the recurrence on what it seems to be appropriate antibiotics, it was thought best by the Orthopedic Surgeon that the patient would benefit best from transfer to a tertiary facility, as it may be likely that he will need further surgical debridements. Of note, an attempt at access via IR at [facility] was unsuccessful due to high level of patient anxiety and discomfort, instead planning on any future procedures to be performed under general anesthesia. Inpatient Medications: 1. Acetaminophen 1000mg TID 2. Alprazolam 0.5mg BID prn 3. Celebrex 200mg BID 4. Dilaudid 0.5-1mg IV Q2 prn 5. Mylanta 6. Milk of magnesia 7. Cefazolin 2000 mg IV Q8 - currently Day #16 8. Zofran 4mg IV Q6prn 9. Oxycodone 5-10mg Q3 prn 10. Protonix 40mg daily Please note that the list below reflects the patient's home medications: Home Meds and New Rx's Prescriptions: Continued acetaminophen [Tylenol] 325 mg Tablet 650 mg PO PRN PRNRF: 0 Discharge Instructions Activity:: Activity as Tolerated Diet:: As Tolerated Discharge Orders Discharge Orders: Discharge Order (Routine); Ordered 08/16/18 Ordered By: Isidoro Monk DS: Data Vitals/I&O Vitals and I&O: Vital Signs Temperature 36.8 C 08/16/18 16:15 Temperature Source Tympanic 08/16/18 16:15 Pulse 85 08/16/18 16:15 Pulse Rhythm Regular 08/16/18 08:46 Respiratory Rate 18 08/16/18 16:15 Respiratory Effort 08/16/18 08:46 Respiratory Depth Normal 08/16/18 08:46 Respiratory Pattern Normal 08/16/18 08:46 Blood Pressure 153/115 H 08/16/18 16:15 Pulse Oximetry 98 08/16/18 11:02 Oxygen Delivery Method Room Air 08/16/18 16:15 Oxygen Flow Rate 0 08/16/18 16:15 Pain Level 3 08/16/18 14:21 Comment 08/15/18 17:02 Intake & Output 08/15/18 08/16/18 08/16/18 23:59 11:59 23:59 Intake Total 730 / 1180 100 / 200 100 / 200 Balance 730 / 1180 100 / 200 100 / 200 Intake: IV 250 / 250 100 / 200 100 / 200 Oral 480 / 930 Other: Urine Color Yellow Urine Appearance Clear Clear Voiding Methods Toilet Completed studies during hospitalization [Text1]: Exam(s) a RAD:XR hip LT complete & AP pelvis SYMPTOMS/DIAGNOSIS: PAIN, SWELLING PELVIS AND LEFT HIP: No fracture or dislocation is seen. Vascular clips are noted in the upper left thigh. There is some acetabular spurring bilaterally. Hardware is noted in the lower lumbar spine. IMPRESSION: No acute abnormality. Exam(s) 08/02/[address]:CT lower extremity LT w SYMPTOMS/DIAGNOSIS: LEFT HIP/THIGH PAIN WITH RANGE OF MOTION, SKIN CHANGES S/P HIP SURGERY, ? ABSCESS CT OF THE PELVIS: Comparison is made with a CT of the abdomen and pelvis dated January,. Postcontrast exam was performed. There is stranding in the subcutaneous fat of the upper anterior thigh. There are surgical clips, which were seen on the previous exam. There are rounded areas of low density and enlargement within the iliopsoas muscle, sartorius and rectus femoris muscles. More distally, the muscles appear normal. Findings could represent an infection versus malignancy. The hip joint shows no evidence of a joint effusion. No bony destruction is seen. There is some spurring at the greater trochanter and a small spur seen anteriorly at the femoral head, which appears unchanged. IMPRESSION: Muscle enlargement of the upper anterior thigh with surrounding soft tissue edema may represent myositis. Malignancy cannot be entirely excluded. Exam(s) 08/04/2018 a MRI:MR lower joint LT wo/w SYMPTOM/DIAGNOSIS: LT HIP SOFT TISSUE INFECTION LEFT HIP MRI: T 1 and fat suppressed T 2 axial,coronal and sagittal and post Dotarem fat suppressed T 1 axial, coronal and sagittal sequences were performed. There is a multi loculated, high signal collection on T 2 weighted images extending from the region of the psoas to the upper thigh in a distribution consistent with ileopsoas bursitis. There are multiple loculations extending anteriorly between the sartorius and rectus femoris muscles. There is extensive enhancement post contrast. There is a small area of high signal in the anterior acetabulum which shows post contrast enhancement and could represent a focus of osteomyelitis. There are a few mildly enlarged left iliac chain lymph nodes, presumably reactive. IMPRESSION: Findings consistent with large ileopsoas bursitis with extensive enhancement worrisome for a superimposed infection. There is a small focus of high signal in the anterior acetabulum which could indicate osteomyelitis. Exam(s)08/08/[address]:CT abdomen & pelvis w SYMPTOMS/DIAGNOSIS: WORSENING LLQ PAIN, H/O PSOAS/PROXIMAL THIGH INFECTION CT SCAN OF THE ABDOMEN AND PELVIS: CT scan of the abdomen and pelvis was performed following the uneventful administration of intravenous contrast material. The lung bases are clear. The liver, spleen, pancreas, gallbladder, bile ducts, adrenal glands, kidneys, ureters and bladder are unremarkable. The reproductive organs are unremarkable. The bowel shows no evidence of obstruction or inflammation. No evidence of an acute appendicitis are present. No abdominal or pelvic ascites or pneumoperitoneum is seen. There are enlarged lymph nodes seen in the left iliac and inguinal region. The largest lymph node measures 1.5 cm in short axis diameter. There is enlargement of the left iliopsoas muscle with extension distally. This has increased compared to the prior examination from 08/02/18 suggesting ongoing inflammation, edema or infection. There does appear to be a fluid collection extending from the left pelvis into the inguinal region measuring 5.6 cm transverse x 3.8 cm AP x at least 7 cm craniocaudad. There is a drainage tube seen in the left anterior thigh. There is contrast seen in the left anterior thigh which per orthopedic surgery represents Betadine from the recent surgical procedure. There is air seen in the soft tissues of the left thigh consistent with recent surgery. No osseous abnormality is seen to suggest osteomyelitis. IMPRESSION: 1. Status post debridement and drainage catheter placement in the left anterior thigh. Residual Betadine is seen in the surgical bed. 2. Enlargement of the left iliopsoas muscle which has progressed since 08/02/18. This may represent ongoing edema, inflammation or infection. 3. Fluid collections seen in the left inguinal region. This may represent an abscess. 4. Mildly enlarged lymph nodes in the left iliac and inguinal region which are likely reactive. 5. Contrast seen in the surgical bed anterior to the proximal left thigh. Exam(s) 08/11/[address]:CT lower extremity LT w SYMPTOMS/DIAGNOSIS: LEFT ILIOPSOAS ABSCESS CT SCAN OF THE LEFT LOWER EXTREMITY FOLLOWING CONTRAST ADMINISTRATION: Comparison examination is 08/08/18. There is asymmetric enlargement of the left iliopsoas muscle and infiltrative changes involving the left sartorius muscle and tensor fasciae latae. Since the prior examination, the drainage catheter has been removed. There is a small amount of residual contrast again seen in the distal aspect of the iliopsoas muscle, consistent with contrast. The collection is decreased in size compared to the prior examination. No other definite fluid collection is seen in the soft tissues. There are surgical clips seen in the left inguinal region. No significant adenopathy is appreciated. The bones are intact. No findings to suggest osteomyelitis are present. The pelvic findings show diverticulosis of the colon, but no findings to suggest diverticulitis. There are postsurgical changes of posterior spinal fusion. IMPRESSION: 1. Interval decrease in size of the contrast collection in the distal left iliopsoas muscle. 2. No evidence of a second fluid collection or abscess. 3. Interval removal of the drainage catheter. 4. Asymmetric enlargement and infiltrative changes seen in the left iliopsoas muscle, left sartorius and the tensor fasciae latae. This may represent residual edema, inflammation or infection. [facility] Medical History Affective personality disorder (Chronic) Anxiety (Chronic) Bipolar 2 disorder (Chronic) Depression (Chronic) GERD (gastroesophageal reflux disease) (Chronic) HTN (hypertension) (Chronic) Hepatitis C (Chronic) History of alcohol abuse (Chronic) History of intravenous drug abuse (Chronic) Hyperlipidemia (Chronic) Kidney stones (Chronic) PTSD (post-traumatic stress disorder) (Chronic) TBI (traumatic brain injury) (Chronic) Surgical History Appendectomy Colonoscopy - MAC (11/14/16) EGD - MAC (11/14/16) Rotator Cuff Repair Spinal Fusion Vasectomy Social History Smoking/Tobacco Use Status: Current every day
[2018-08-16 17:18] VITALS: BP 180/68
--- NOTE | 2018-08-16 17:28 | NUR.NOTE ---
Called and gave nurse to nurse report to OWEN Swan. Nursing Note:
== END 2018-08-16 18:15 | disposition short-term general hospital (02) | DRG 548 ==
PROVIDERS: Nurse Practitioner; Admitting Provider Internal Medicine; PCP Nurse Practitioner Family; Visit Provider Internal Medicine
DX: M00.052 Staphylococcal arthritis, left hip (principal); K68.12 Psoas muscle abscess; F31.81 Bipolar II disorder; Z47.89 Encounter for other orthopedic aftercare; Z79.2 Long term (current) use of antibiotics; M25.552 Pain in left hip; R10.32 Left lower quadrant pain; B19.20 Unspecified viral hepatitis C without hepatic coma; Z59.0 Homelessness; I10 Essential (primary) hypertension; K21.9 Gastro-esophageal reflux disease without esophagitis; Z87.820 Personal history of traumatic brain injury
CPT/HCPCS: 36415; 80048; 80307; 85027; 99232; 99239; 99305; 99316; NC; 73701; 86140; 99308; A0425; A0428; J0690; J3490; Q9967

== ENCOUNTER 2018-08-19 13:59 | Inpatient (IN) | payer MEDICARE, MEDICAID, SELFPAY ==
--- NOTE | 2018-08-19 13:47 | CM.SBPSYCH ---
- If Service Date Differs Date of service: 08/19/18 Time of Service: 13:47 SB Psychosocial/Act.Assessment - Hospital Admission Admission Date: 08/16/18 [place] [facility] [place] - Swing Bed Admission Swing Bed Admit Date:: 08/19/18 Swing Bed Level of Care: Level 1/SNF - Social Supports PREVIOUS FUNCTIONAL STATUS/SOCIAL/FAMILY SUPPORTS:: Jason resides in [place] with his roommate Alonzo. He states that he is independent at baseline, he drives, and manages ADL's. Jason reports that he is on disability for dissociative behaviors and has been on disability for the past 6 years. - Prior to Admission Living Arrangements/Environment Prior to Admission:: Has been couch surfing between his brothers and friend Alonzos home. - Education Highest Grade Completed:: 12 - Work History Employment Status:: Disability - [place]: No 's Spouse: No - Benefits Financial: Medicare, Medicaid - Baptism Active Advent Member:: No Will Advent Members or School Clerk Visit:: No - Advance Directives for Healthcare If no AD, do you want more information:: Yes - Community Community Supports/Involvement: Sees a therapist locally. 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 Appendectomy. Colonoscopy - MAC (11/14/16). EGD - MAC (11/14/16). Rotator Cuff Repair. Spinal Fusion. Vasectomy General Health:: Fair - Admission Data Reason for Swing Bed Admission:: IV antibiotics and wound care. Discharge Plan:: Return to the community with ? services. Assessment: Jason will remain in a swingbed level of care for IV antibiotics and wound care. Jason will return to the community once medically cleared,and is currently working on obtaining housing in the community. Paste Up Worker: Ami Dumont Date Assessment was completed:: 08/19/18
--- NOTE | 2018-08-19 14:02 | CMSA_ITS ---
- If Service Date Differs Date of service: 08/19/18 Time of Service: 13:47 SB Psychosocial/Act.Assessment - Hospital Admission Admission Date: 08/16/18 Admission From:: [facility] [place] Diagnosis:: LLE abscess - Swing Bed Admission Swing Bed Admit Date:: 08/19/18 Swing Bed Level of Care: Level 1/SNF - Social Supports PREVIOUS FUNCTIONAL STATUS/SOCIAL/FAMILY SUPPORTS:: Jason resides in [place] with his roommate Alonzo. He states that he is independent at baseline, he drives, and manages ADL's. Jason reports that he is on disability for dissociative behaviors and has been on disability for the past 6 years. - Prior to Admission Living Arrangements/Environment Prior to Admission:: Has been couch surfing between his brothers and friend Alonzos home. - Education Highest Grade Completed:: 12 - Work History Employment Status:: Disability - Lejunior: No 's Spouse: No - Benefits Financial: Medicare, Medicaid - Alevism Active Holiness Member:: No Will Holiness Members or Director Of Strategic Marketing Visit:: No - Advance Directives for Healthcare If no AD, do you want more information:: Yes - Community Community Supports/Involvement: Sees a therapist locally. 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 Appendectomy. Colonoscopy - MAC (11/14/16). EGD - MAC (11/14/16). Rotator Cuff Repair. Spinal Fusion. Vasectomy General Health:: Fair - Admission Data Reason for Swing Bed Admission:: IV antibiotics and wound care. Discharge Plan:: Return to the community with ? services. Assessment: Jason will remain in a swingbed level of care for IV antibiotics and wound care. Jason will return to the community once medically cleared,and is currently working on obtaining housing in the community. Escrow Assistant: Ami Dumont Date Assessment was completed:: 08/19/18
--- NOTE | 2018-08-19 14:02 | CM.SWINGPC ---
- If Service Date Differs Date of service: 08/19/18 Time of Service: 14:02 Swingbed Plan of Care Plan of care: SWING BED PROGRAM ACTIVITIES/DISCHARGE PLAN OF CARE ACTIVITIES PLAN Date: 08/19/18 Identified Need: Individual activities Intervention/Plan: TV in room Activity cart offered Reading materials available Initials MM DISCHARGE PLAN Date:08/19/18 Identified Need: Housing Intervention/Plan: Pt is working with Economic services to secure housing at time of DC. Initials [facility]
[2018-08-19 14:44] VITALS: BP 141/98; PULSE 95; RESP 20; TEMP 37; O2SAT 99
[2018-08-19 15:00] VITALS: BP 146/90; PULSE 93; TEMP 37; O2SAT 99
[2018-08-19 16:30] VITALS: BP 174/97; PULSE 97; O2SAT 97
[2018-08-19] MEDS: Normal Saline Flush 10 ML SYR IVP ×3 (16:51→19:32)
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
[2018-08-19 17:30] VITALS: BP 141/98; PULSE 95; RESP 20; TEMP 37; O2SAT 99
[2018-08-19] MEDS: Acetaminophen 500 MG TAB 1000 MG PO (17:39)
[2018-08-19 17:40] LABS: HCT 32.6 % (40.0-50.0); HGB 10.2 g/dL (13.5-17.5); Mean Corp. HGB Concentration 31.3 g/dL (32.0-36.0); Mean Corpuscular Hemoglobin 26.4 pg (27.0-33.0); Mean Corpuscular Volume 84.5 fL (80-95); Mean Platelet Volume 8.9 fL (8.0-11.0); Platelet Count 231 x1000/uL (130-400); RBC 3.86 m/cumm (4.50-6.00); RBC Distribution Width 15.5 % (11.8-14.1)
[2018-08-19] MEDS: ALPRAZolam 0.5 MG TAB PO (17:40)
[2018-08-19] MEDS: oxyCODONE 15 MG TAB PO (17:40)
[2018-08-19 17:57] LABS: ALT 14 U/L (12-78); AST 18 U/L (15-37); Albumin 3.2 g/dL (3.4-5.0); Alkaline Phosphatase 90 U/L (46-116); BUN 16 mg/dL (7-18); Bilirubin, Total 0.3 mg/dL (0.2-1.0); CREATININE 1.29 mg/dL (0.70-1.30); Calcium 8.8 mg/dL (8.5-10.1); Chloride 104 mmol/L (98-107); Glucose 112 mg/dL (70-100); Sodium 142 mmol/L (136-145); Total Protein 7.2 g/dL (6.4-8.2)
[2018-08-19] MEDS: Gabapentin 300 MG CAP PO (19:33)
[2018-08-19] MEDS: Normal Saline 500 ML 30 ML IV (19:35)
--- NOTE | 2018-08-19 19:37 | NUR.NOTE ---
Pt arrived [place] [facility] [place] here on SB1 status for IV antibiotics. Familiarized with room, tray ordered, VSS, ambulating independently in room. All WNL. At 1630, pt asked to ambulate in hallways which is his baseline. Pt experienced a shaky, tightening, dizzy episode while in hallway and returned to room in w/c with RN and MARYBETH Luo. VSS; BP elevated at 174/97, FS 110. Pt lying in bed, 'eyes rolling back in head', slurred speech, 'dozing off' while speaking with RN and THREAD MARKER. MD aware and to room; labs ordered. Pt crying off and off. Bed alarms on at that time. Second episode, similar to first at 1930. RETAIL FIELD REPRESENTATIVE Michelle in halls with pt. Half-Way down hallway and returned to room in w/c. VSS. Alarms remain on at this time.
--- NOTE | 2018-08-19 20:21 | NUR.NOTE ---
Nursing Note: Pt refuses colace and states to counteract the opioids i am taking I drink apple juice and cranberry juice and that works for me.
[2018-08-20] MEDS: Acetaminophen 500 MG TAB 1000 MG PO ×5 (00:17→23:21)
[2018-08-20] MEDS: oxyCODONE 15 MG TAB PO ×5 (00:17→22:16)
[2018-08-20] MEDS: ALPRAZolam 0.5 MG TAB PO (00:17)
[2018-08-20 00:19] VITALS: BP 155/106; PULSE 80; RESP 22; TEMP 35.8; O2SAT 97
[2018-08-20] MEDS: Normal Saline Flush 10 ML SYR IVP ×4 (06:46→22:16)
[2018-08-20 07:25] VITALS: BP 157/100; PULSE 71; RESP 20; TEMP 37.1; O2SAT 97
[2018-08-20 07:27] LABS: HCT 32.9 % (40.0-50.0); HGB 10.2 g/dL (13.5-17.5); Mean Corpuscular Hemoglobin 26.2 pg (27.0-33.0); Mean Corpuscular Volume 84.6 fL (80-95); Mean Platelet Volume 9.3 fL (8.0-11.0); Platelet Count 212 x1000/uL (130-400); RBC 3.89 m/cumm (4.50-6.00); RBC Distribution Width 15.5 % (11.8-14.1); White Blood Cell Count 5.71 k/cumm (4.4-10.8)
[2018-08-20 07:43] LABS: Anion Gap 8.1 mmol/L (3-11); BUN 16 mg/dL (7-18); CO2 28.9 mmol/L (21.0-32.0); CREATININE 1.15 mg/dL (0.70-1.30); Calcium 8.9 mg/dL (8.5-10.1); Chloride 104 mmol/L (98-107); Glucose 115 mg/dL (70-100); Potassium 3.9 mmol/L (3.5-5.1); Sodium 141 mmol/L (136-145)
[2018-08-20] MEDS: Gabapentin 300 MG CAP PO ×3 (08:25→22:16)
[2018-08-20] MEDS: Docusate Sodium 100 MG CAP PO ×2 (08:25→22:16)
[2018-08-20 10:44] LABS: C-Reactive Protein 6.22 mg/dL (0.0-0.3)
--- NOTE | 2018-08-20 12:05 | PHARADMIT ---
Addendum entered by Dary Rivera 09/27/18 15:42: Pharmacy Note Subjective MRI today Objective BP-159/84 CRP-1.61 (down) Assessment alprazolam given prior to MRI cefazolin continues; waiting for new plan Plan MD waiting for MRI and CRP results from today to help determine plan Original Note: Addendum entered by Francesco Luis III 09/22/18 12:45: Pharmacy Note Subjective [facility] with in charge of patients IV ABX schedule and wound care. Objective VS-OK BP-135/80 pain: 8/10 Patient self voiding Assessment Cefazolin 2gm IV q8h continues thru 09/28/2018 Plan No changes Original Note: Addendum entered by Francesco Luis III 09/21/18 09:25: Pharmacy Note Subjective Hospitalist see wound as worsening, fears ABX will need to continue beyond 09/28. Patient complains of worsening pain. Objective VS-OK BP-159/89 No Labs Assessment Ancef continues for now. Plan Follow C-reactive protein. Original Note: Addendum entered by Dary Rivera 09/20/18 14:27: Pharmacy Note Subjective clinically worsening per morning report Objective BP-149/92 electrolytes-within normal limits h/h-11.0/34.9 Assessment cefazolin continues through 09/28 for now still no report yet on how [facility] appts went other than wound Vac dc'd Plan watch for med changes Original Note: Addendum entered by Francesco Luis III 09/17/18 17:21: Pharmacy Note Subjective No report yet on how [facility] appointments went othr than wound Vac dc'd Objective VS-OK BP-153/102 pain:710 FSBS-111 Had BM today Assessment Cefazolin continue thru 09/28 for now. Plan Awaitig MD note. Original Note: Addendum entered by Francesco Luis III 09/16/18 16:12: Pharmacy Note Subjective Patient is at [facility] for two appointments. He vincent miss his scheduled Cefazolin 2gm dose. No plan to give additional dose. Objective VS-OK BP-135/76 Wgt-148.5 kg No Labs Assessment Will receive his 22:00 Cefazolin later today , when tessie returns. Plan Awaiting results of [facility] appointments, regarding abscess Original Note: Addendum entered by Francesco Luis III 09/15/18 11:34: Pharmacy Note Subjective MD describes abscess as not improving, patient will go to [facility] tomorrow for evaluation. Objective BP-155/97 pain:8/10 No new labs Assessment Cefazolin 2gm iv q8hrs continues for now, thinks this may change. Plan Tolerating Cymbalta, mood improved. Original Note: Addendum entered by Francesco Luis III 09/09/18 13:47: Pharmacy Note Subjective Cymbalta, started on 09/05, appears to have caused ADR of double vision & headache. wants to continue the med to see if ADRs are transient. Patient agrees Objective BP-156/102 Lytes-OK SCr-1.10 Last BM 09/22/0420/12/2018 Assessment Cefazolin 2gm IV q8hrs continues. Plan NO other changes, watch for Cymbalta continuation Original Note: Addendum entered by Dary Rivera 09/07/18 12:27: Pharmacy Note Subjective pt has appt today at [facility], will be this afternoon per morning report Objective BP-167/104 other VS okay no labs Assessment clonidine patch ordered Q7D gabapentin changed from 300 mg TID to 300 mg @1400 and 600 mg HS Plan continue to watch VS and for med changes Original Note: Addendum entered by Francesco Luis III 09/01/18 11:18: Pharmacy Note Subjective Patient leaving tomorrow morning early (5:30) on a pass to [place], vincent be back by 4PM to resume Cefazolin. Objective BP-152/102 Labs-WNL Assessment No new changes. Cefazolin continues Plan MD to discuss medication of BP with patient. Has two [facility] appointmnts this month (09/07 & 09/16) Original Note: Addendum entered by Dary Rivera 08/31/18 17:05: Pharmacy Note Subjective pt did not tolerate the depakote per morning report Objective BP-158/94 other VS okay pain-8/10 cefazolin continues (started 08/06/18; tentative end date 09/28/18 per [facility]) has follow up with [facility] ID on 09/16/18 Plan continue to watch VS and for med changes Original Note: Addendum entered by Dary Rivera 08/30/18 17:48: Pharmacy Note Subjective pt. looked more uncomfortable yesterday per morning report Objective BP-160/81 pain-8/10 other VS okay labs okay Assessment cefazolin continues (started 08/06/18; tentative end date 09/28/18 per [facility]) has follow up with [facility] ID on 09/16/18 depakote discontinued Plan continue to watch VS labs and for med changes Original Note: Addendum entered by Francesco Luis III 08/27/18 14:01: Pharmacy Note Subjective to re-evaluate patient on Thursday. Sep 16 patient goes to [facility] for follow-up. ABX end date set for Sep 28. Depakote started per for mood. Objective VS-OK Pain:8 BP-151/93 no Labs Assessment CEFAZOLIN CONTINUES Plan no changes Original Note: Addendum entered by Francesco Luis III 08/26/18 16:54: Pharmacy Note Subjective day for patient, it's his birthday & his daughters in [place] Objective VS-OK BP-157/102 No Labs. Assessment Cefazolin continues Plan Had to use 10gm bulk bottle to make Cefazolin doses. Original Note: Addendum entered by Dary Rivera 08/24/18 11:19: VS okay, no labs (check labs per progress note) pain-9/10 cefazolin continues for 4-6 weeks per [facility] recommendation. initially started on 08/06/18 (see previous accounts) pain control still an issue per progress note, has acetaminophen, gabapentin, hydromorphone, ketorolac, and oxycodone ordered has wound vac on Original Note: Addendum entered by Susannah Aguirre 08/22/18 14:06: Pharmacy Note Subjective 4-6 wks treatment with cefazolin per [facility]. nursing suggests consult for wound vac placement and noted pt will be apprehensive Objective bp 160/108, pain 8/10 Assessment nutrition and ortho consult to be ordered, cefazolin continues(day 4), no med changes noted today Plan watch for pain control and end date of abx Original Note: Admission Pharmacy Clinical Review ILEOPSOAS ABSCESS Code Status Full Code Current Weight Wgt- 137 Kg Renally Cleared and Narrow Therapeutic Index Meds CrCl~ 96 mL/min Meds-OK QTc Value / Action Taken QTc-453 (Oct-) na BP Control, Fever BP- 157/100 Tmax- 37.1C Electrolytes reviewed Na- 141 K+3.9 DVT Prophylaxis none Opiate Usage / Scheduled Bowel Regimen Ordered Yes Yes Plt/SCr for Heparin / Enoxaparin Plts-212 SCr- 1.15 INR for Warfarin na H/H stable, WBC/Bands H&H- 10.2/32.9 WBC- 5.71 Antibiotic appropriateness Ancef Cultures and Sensitivities Blood- pending Surgical ABX d/c within 24 hr na DM control / Insulin Dosing BG-115 Heart Failure (Check EF%) (PAMELA's, B-Block, Diuretics) none IV to PO Switch No Home Meds Reviewed Yes Home Meds Not Ordered Done Comments crp- 6.22
[2018-08-20] MEDS: LORazepam 1 MG TAB PO ×2 (15:10→23:25)
[2018-08-20 16:39] VITALS: BP 134/86; PULSE 79; RESP 18; TEMP 36.6; O2SAT 96
[2018-08-20] MEDS: busPIRone 5 MG TAB 10 MG PO (22:16)
[2018-08-21] MEDS: oxyCODONE 15 MG TAB PO ×3 (02:23→18:11)
[2018-08-21 04:38] VITALS: BP 148/93; PULSE 86; RESP 20; TEMP 36.1; O2SAT 95
[2018-08-21] MEDS: Acetaminophen 500 MG TAB 1000 MG PO ×3 (05:45→18:10)
[2018-08-21] MEDS: busPIRone 5 MG TAB 10 MG PO (07:28)
[2018-08-21] MEDS: Venlafaxine 37.5 MG CAPCR 75 MG PO (07:28)
[2018-08-21] MEDS: Docusate Sodium 100 MG CAP PO ×2 (07:29→19:53)
[2018-08-21] MEDS: Gabapentin 300 MG CAP PO ×3 (07:29→19:52)
[2018-08-21] MEDS: LORazepam 1 MG TAB PO ×2 (07:33→19:53)
[2018-08-21 07:35] VITALS: BP 155/89; PULSE 76; RESP 20; TEMP 36.7; O2SAT 100
[2018-08-21] MEDS: HYDROmorphone 2 MG/ML VIAL 0.5 MG IVP ×2 (11:45→21:38)
[2018-08-21] MEDS: Alteplase 2 MG VIAL IJ (12:15)
[2018-08-21] MEDS: Water,Injection,Bacteriostatic 30 ML VIAL (12:20)
[2018-08-21] MEDS: Normal Saline Flush 10 ML SYR IVP ×3 (14:11→21:38)
--- NOTE | 2018-08-21 16:11 | WOUNDCARE ---
Wound Care Report Pt's dressing changed today with primary nurse per [facility] recommendations, Helenaell Ag in wound bed, cover with gauze and tape, see wound assessment in worklist for details and measurements. Current recommendation by this wound nurse is to follow [facility] orders. Will follow drainage over the next 24 hours and revaluate appropriateness of current wound orders. Wound team here at [facility] thinks a wound vac would probably be the best option for the best outcome, however Pt is hesitant to have vac placed. Will revisit this discussion with pt tomorrow when wound is reassessed.
[2018-08-21 19:55] VITALS: BP 170/107; PULSE 78; RESP 18; TEMP 35.8; O2SAT 98
[2018-08-22] MEDS: Acetaminophen 500 MG TAB 1000 MG PO ×3 (01:51→17:31)
[2018-08-22] MEDS: Normal Saline Flush 10 ML SYR IVP ×7 (02:00→21:39)
[2018-08-22] MEDS: HYDROmorphone 2 MG/ML VIAL 0.5 MG IVP ×5 (02:00→20:03)
[2018-08-22 03:01] VITALS: BP 165/93; PULSE 85; RESP 18; TEMP 36.5; O2SAT 96
[2018-08-22 07:22] LABS: Abs Immature Grans 0.02 k/cumm (0.0-0.09); Absolute Basophil Count 0.02 k/cumm (0.0-0.2); Absolute Eosinophil Count 0.29 k/cumm (0.0-0.7); Absolute Lymphocyte Count 1.36 k/cumm (1.2-3.4); Absolute Monocyte Count 0.42 k/cumm (0.11-0.7); Absolute Neutrophil Count 4.02 k/cumm (1.2-6.7); Basophils % 0.3; Eosinophils % 4.7; HGB 10.8 g/dL (13.5-17.5); Immature Grans % 0.3; Lymphocytes % 22.2; Mean Corp. HGB Concentration 32.7 g/dL (32.0-36.0); Mean Corpuscular Hemoglobin 27.6 pg (27.0-33.0); Mean Corpuscular Volume 84.2 fL (80-95); Mean Platelet Volume 8.9 fL (8.0-11.0); Monocytes % 6.9; Neutrophils % 65.6; Platelet Count 233 x1000/uL (130-400); RBC 3.92 m/cumm (4.50-6.00); RBC Distribution Width 15.6 % (11.8-14.1); White Blood Cell Count 6.13 k/cumm (4.4-10.8)
[2018-08-22 07:34] LABS: BUN 11 mg/dL (7-18); C-Reactive Protein 4.73 mg/dL (0.0-0.3); CREATININE 0.97 mg/dL (0.70-1.30); Calcium 9.1 mg/dL (8.5-10.1); Chloride 103 mmol/L (98-107); Glucose 110 mg/dL (70-100); Magnesium 2.2 mg/dL (1.8-2.4); Potassium 4.1 mmol/L (3.5-5.1); Sodium 140 mmol/L (136-145)
[2018-08-22 07:45] VITALS: BP 160/108; PULSE 73; RESP 20; TEMP 36.3; O2SAT 98
[2018-08-22] MEDS: Docusate Sodium 100 MG CAP PO ×2 (08:11→19:53)
[2018-08-22] MEDS: Gabapentin 300 MG CAP PO ×3 (08:12→19:52)
[2018-08-22] MEDS: oxyCODONE 15 MG TAB PO ×4 (08:18→21:45)
[2018-08-22] MEDS: LORazepam 1 MG TAB PO (08:18)
--- NOTE | 2018-08-22 15:22 | WOUNDCARE ---
Wound Care Report Discussed idea of wound vac with pt today. He is receptive and willing to try a Vac. States his resistance was d/t the fact that he had one on his foot before and it was painful. Wound looks mostly unchanged, however drainage has changed to purulent, green in color on aqucel Ag and mepilex, white/nelson pus noted in wound bed, slimey. Heavy drainage in the last 24 hour, not being managed by current regimen. Wound irrigated with 18G angiocath and saline. Aqucell Ag and Optilock used (instead of mepilex). Pt tolerated dressing change medicore, anxiety and grimacing expressed. MD Maradiaga has placed a surgical consult. Dr. Restrepo expected to see Pt tomorrow. Current recommendation is to defer wound care to surgical services. Thank you for the consult. Feel free to contact me with any questions.
[2018-08-22 16:18] VITALS: BP 147/97; PULSE 78; RESP 18; TEMP 36.8; O2SAT 97
[2018-08-22 20:00] VITALS: BP 164/88; PULSE 85; RESP 16; TEMP 36.6; O2SAT 96
[2018-08-22 23:37] VITALS: BP 177/120; PULSE 93; RESP 19; TEMP 36.7; O2SAT 93
[2018-08-23] MEDS: Acetaminophen 500 MG TAB 1000 MG PO ×4 (00:02→18:34)
[2018-08-23] MEDS: HYDROmorphone 2 MG/ML VIAL 0.5 MG IVP ×6 (00:02→22:16)
[2018-08-23] MEDS: Normal Saline Flush 10 ML SYR IVP ×9 (00:03→23:34)
[2018-08-23] MEDS: LORazepam 1 MG TAB PO ×2 (02:10→18:38)
[2018-08-23] MEDS: oxyCODONE 15 MG TAB PO ×6 (02:10→22:18)
[2018-08-23 02:18] VITALS: BP 152/73
[2018-08-23] MEDS: Docusate Sodium 100 MG CAP PO ×2 (07:58→20:12)
[2018-08-23] MEDS: Gabapentin 300 MG CAP PO ×3 (07:58→20:12)
[2018-08-23 08:42] VITALS: BP 132/68; PULSE 85; RESP 20; TEMP 36.2; O2SAT 97
--- NOTE | 2018-08-23 11:07 | W.PM.PROGNOT ---
Date of Service Date of service: 08/23/18 Time of Service: 11:08 Assessment and Plan (1) Psoas abscess, left: Current visit: No Status: Acute Jason continues to have pain and purulent discharge from his left hip wound. He is status post debridement from [facility] but unfortunately without a clear plan or signs of improvement after the most recent debridement. He is still on IV antibiotics we will keep him on these for a while. I will try to transition him to a wound VAC if he can tolerate this. We will order the wound VAC today and will likely be placed either later today or tomorrow. Subjective Patient reports: no new complaints and still having pain Interval history since last seen: I am seeing Jason for the first time since his readmission back to the [facility] from [facility]. He is status post third irrigation and debridement. He reports that the pain is still present although it seems that shifted to be slightly more superficial. The wound was left open and he has been having daily dressing changes. Ultimately, the plan will be for wound VAC. He denies any fevers or chills. Pain has been very challenging to control. He feels like this is worse after this most recent debridement at [facility]. There is no clear instruction from [facility] as to the ultimate plan or information about the status of wound cultures from that debridement. He is still able to ambulate but does so with pain. He still has pain within his groin and down the medial aspect of the left leg. He is still have purulent discharge from the wound. Exam Narrative Exam Narrative: Jason is laying in bed. He is slightly anxious but in no acute distress. He is alert and oriented x3. Evaluation of the left leg shows no surrounding erythema. There is still some fullness to the left thigh but it is otherwise soft and compressible, however causes significant pain with palpation. The dressing is removed which shows clean wound edges. The wound measures approximately 12 mm in length by 4 severe as it went that is why this point and 2-3 cm in depth. The sidewalls and base of the wound all appear to be granulating appropriately with mild amounts of purulent discharge. There is no expressible purulence from the wound but this was also limited due to pain. He tolerates some gentle internal and external rotation. Objective Objective Clinical Data: Vital Signs Temperature 36.2 C L 08/23/18 08:42 Temperature Source Tympanic 08/23/18 08:42 Pulse 85 08/23/18 08:42 Pulse Rhythm Regular 08/23/18 07:55 Respiratory Rate 20 08/23/18 08:42 Respiratory Effort Non-Labored 08/23/18 07:55 Respiratory Depth Normal 08/23/18 07:55 Respiratory Pattern Normal 08/23/18 07:55 Blood Pressure 132/68 08/23/18 08:42 Pulse Oximetry 97 08/23/18 08:42 Oxygen Delivery Method Room Air 08/23/18 08:42 Oxygen Flow Rate 0 08/23/18 08:42 Pain Level 8 08/23/18 10:15 Comment 08/22/18 20:00 Intake & Output 08/22/18 08/22/18 08/23/18 11:59 23:59 11:59 Intake Total 450 / 1950 1500 / 1950 750 / 750 Balance 450 / 1950 1500 / 1950 750 / 750 Intake: IV 90 / 250 160 / 250 110 / 110 Oral 360 / 1700 1340 / 1700 640 / 640 Other: Comment Pt voiding ad darius in toilet. Urine not visualized by nursing; pt denies sx. pt gets up AD DARIUS to void. Pt voiding independently. Voiding Methods Toilet Toilet Toilet Laboratory Results WBC 6.13 k/cumm (4.4-10.8) 08/22/18 07:00 RBC 3.92 m/cumm (4.50-6.00) L 08/22/18 07:00 Hgb 10.8 g/dL (13.5-17.5) L 08/22/18 07:00 Hct 33.0 % (40.0-50.0) L 08/22/18 07:00 MCV 84.2 fL (80-95) 08/22/18 07:00 MCH 27.6 pg (27.0-33.0) 08/22/18 07:00 MCHC 32.7 g/dL (32.0-36.0) 08/22/18 07:00 RDW 15.6 % (11.8-14.1) H 08/22/18 07:00 Plt Count 233 x1000/uL (130-400) 08/22/18 07:00 MPV 8.9 fL (8.0-11.0) 08/22/18 07:00 Immature Gran % 0.3 08/22/18 07:00 Neutrophils % 65.6 08/22/18 07:00 Lymphocytes % 22.2 08/22/18 07:00 Monocytes % 6.9 08/22/18 07:00 Eosinophils % 4.7 08/22/18 07:00 Basophils % 0.3 08/22/18 07:00 Absolute Neutrophils 4.02 k/cumm (1.2-6.7) 08/22/18 07:00 Absolute Lymphocytes 1.36 k/cumm (1.2-3.4) 08/22/18 07:00 Absolute Monocytes 0.42 k/cumm (0.11-0.7) 08/22/18 07:00 Absolute Eosinophils 0.29 k/cumm (0.0-0.7) 08/22/18 07:00 Absolute Basophils 0.02 k/cumm (0.0-0.2) 08/22/18 07:00 Sodium 140 mmol/L (136-145) 08/22/18 07:00 Potassium 4.1 mmol/L (3.5-5.1) 08/22/18 07:00 Chloride 103 mmol/L (98-107) 08/22/18 07:00 Carbon Dioxide 28.0 mmol/L (21.0-32.0) 08/22/18 07:00 Anion Gap 9.0 mmol/L (3-11) 08/22/18 07:00 BUN 11 mg/dL (7-18) 08/22/18 07:00 Creatinine 0.97 mg/dL (0.70-1.30) 08/22/18 07:00 Estimated GFR/1.73 m2 >= 60.00 (mL/min/1.73m2) 08/22/18 07:00 Glucose 110 mg/dL (70-100) H 08/22/18 07:00 Calcium 9.1 mg/dL (8.5-10.1) 08/22/18 07:00 Magnesium 2.2 mg/dL (1.8-2.4) 08/22/18 07:00 Total Bilirubin 0.3 mg/dL (0.2-1.0) 08/19/18 17:12 AST 18 U/L (15-37) 08/19/18 17:12 ALT 14 U/L (12-78) 08/19/18 17:12 Alkaline Phosphatase 90 U/L (46-116) 08/19/18 17:12 C-Reactive Protein 4.73 mg/dL (0.0-0.3) H 08/22/18 07:00 Total Protein 7.2 g/dL (6.4-8.2) 08/19/18 17:12 Albumin 3.2 g/dL (3.4-5.0) L 08/19/18 17:12
--- NOTE | 2018-08-23 11:26 | W.NUTCONSULT ---
Date of service: 08/23/18 Time of Service: 11:26 Nutritional Consult ASSESSMENT: Nutrition consult for wound. Mr. Avila is on a regular nutrition therapy. He is 73 and 137 kg. His BMI is 39 kg/m2 which is consistent with class 2 obesity. His adjusted ideal body weight is 110 kg. His estimated energy needs for wound healing are 2800 kcal/day (REE x 1.2). His estimated protein needs are 143g-165g/day (1.3-1.5 g/kg adjusted ideal body weight). He is currently eating 100% of his meals which is approximately 1800 calories per day and 70 grams of protein. He reports that he is agreeable to nutritional supplements at meal time to help with wound healing. NUTRITIONAL DIAGNOSIS: Increased need for nutrients related to wounds. INTERVENTION: Given Mr. Avila's high caloric needs will add Ensure Plus ( or some high calorie, high protein liquid nutrition) three times daily to increase his calories by 1050 and protein by 39 grams. Will also add Tony supplements twice daily for increased glutamine and arginine for wound healing and to increase in protein intake. RD and CDM will continue to encourage high calorie high protein nutrition therapy. MONITORING AND EVALUATION: 1. Will monitor weight and PO intake. 2. Will monitor tolerance to supplements. 3. Will evaluate nutrition care plan ongoing and adjust as needed. Thank you for the consult. Time Spent in Nutritional Counseling and Treatment: NURYS
[2018-08-23 15:30] VITALS: BP 173/110; PULSE 85; RESP 18; TEMP 36.4; O2SAT 97
[2018-08-23 17:03] VITALS: BP 160/110
[2018-08-23 21:57] VITALS: BP 171/113
[2018-08-23 23:30] VITALS: BP 156/110; PULSE 87; RESP 19; TEMP 36.4; O2SAT 97
[2018-08-23] MEDS: Diazepam 5 MG TAB PO (23:33)
[2018-08-24] MEDS: Acetaminophen 500 MG TAB 1000 MG PO ×4 (00:07→18:01)
[2018-08-24] MEDS: Normal Saline Flush 10 ML SYR IVP ×9 (02:26→23:08)
[2018-08-24] MEDS: oxyCODONE 15 MG TAB PO ×5 (02:27→18:46)
[2018-08-24] MEDS: HYDROmorphone 2 MG/ML VIAL 0.5 MG IVP ×2 (02:28→06:46)
[2018-08-24 03:19] VITALS: BP 158/94; PULSE 89; RESP 18; TEMP 36; O2SAT 97
[2018-08-24] MEDS: Ketorolac 15 MG/ML VIAL IVP ×3 (07:24→19:45)
--- NOTE | 2018-08-24 07:36 | PGE_ITS ---
Date of Service Date of service: 08/24/18 Time of Service: 07:33 Assessment and Plan (1) Psoas abscess, left: Current visit: No Status: Acute Jason is a 42-year-old status post 3 irrigation and debridement procedures for left hip abscess. The wound is currently open. Given the persistent amount of drainage from the wound a wound VAC was applied. I personally applied that this morning the single sponge of the wound connected 220 mmHg of suction. He tolerated procedure well at the bedside. He also continues have significant pain. He is on a heavy regimen of oxycodone which worries me given his significant history for IV drug use in the past. Nevertheless, he does have a reason for the pain we will continue with 50 mg every 4 hours. I did add on Valium at nighttime to hopefully help with his muscle spasms and anxiety and inability to sleep. I also added on ketorolac. I am hopeful that these combinations of medications with the addition of the wound that will help decrease his pain. We will recheck labs on . Subjective Interval history since last seen: Jason continues to complain of significant pain about the left hip. He reports being unable to sleep last night. He continues to require increasing amount of narcotics without any significant improvement. He is still independent with ambulation although it causes pain. Moving in and out of bed and laying still the bed seem to be the most uncomfortable. He denies any fevers or chills. No change in his overall sy mptomatology. Exam Narrative Exam Narrative: Jason is lying supine in the bed. He is less interactive this morning that he has been in the past. He has a slightly flattened affect about himself but does interact appropriately through the examination. He does seem anxious this morning. Evaluation of the left hip shows some purulent discharge from the left hip wound. The dressing is removed. There is no expressible purulence. There is a small amount gathers in the wound. The wound measures approximately 12 cm in length, approximately 3/2-4 cm in width and about 2 centimeters in depth. The tissue shows granulation throughout with very small focal areas of purulent adherence. Thigh is soft. There is no surrounding erythema. Significant dysesthesias and hyperesthesias throughout. Light touch and light pressure causes a jerking motion and facial grimace. Objective Objective Clinical Data: Vital Signs Temperature 36 C L 08/24/18 03:19 Temperature Source Tympanic 08/24/18 03:19 Pulse 89 08/24/18 03:19 Pulse Rhythm Regular 08/24/18 00:08 Respiratory Rate 18 08/24/18 03:19 Respiratory Effort 08/24/18 00:08 Respiratory Depth Normal 08/24/18 00:08 Respiratory Pattern Normal 08/24/18 00:08 Blood Pressure 158/94 H 08/24/18 03:19 Pulse Oximetry 97 08/24/18 03:19 Oxygen Delivery Method Room Air 08/24/18 03:19 Oxygen Flow Rate 0 08/24/18 03:19 Pain Level 8 08/24/18 06:46 Comment 08/22/18 20:00 Intake & Output 08/23/18 08/23/18 08/24/18 11:59 23:59 11:59 Intake Total 750 / 1380 630 / 1380 50 / 50 Balance 750 / 1380 630 / 1380 50 / 50 Intake: IV 110 / 260 150 / 260 50 / 50 Oral 640 / 1120 480 / 1120 Other: Urine Appearance Clear Comment Pt voiding independently. Voiding Methods Toilet Toilet Laboratory Results WBC 6.13 k/cumm (4.4-10.8) 08/22/18 07:00 RBC 3.92 m/cumm (4.50-6.00) L 08/22/18 07:00 Hgb 10.8 g/dL (13.5-17.5) L 08/22/18 07:00 Hct 33.0 % (40.0-50.0) L 08/22/18 07:00 MCV 84.2 fL (80-95) 08/22/18 07:00 MCH 27.6 pg (27.0-33.0) 08/22/18 07:00 MCHC 32.7 g/dL (32.0-36.0) 08/22/18 07:00 RDW 15.6 % (11.8-14.1) H 08/22/18 07:00 Plt Count 233 x1000/uL (130-400) 08/22/18 07:00 MPV 8.9 fL (8.0-11.0) 08/22/18 07:00 Immature Gran % 0.3 08/22/18 07:00 Neutrophils % 65.6 08/22/18 07:00 Lymphocytes % 22.2 08/22/18 07:00 Monocytes % 6.9 08/22/18 07:00 Eosinophils % 4.7 08/22/18 07:00 Basophils % 0.3 08/22/18 07:00 Absolute Neutrophils 4.02 k/cumm (1.2-6.7) 08/22/18 07:00 Absolute Lymphocytes 1.36 k/cumm (1.2-3.4) 08/22/18 07:00 Absolute Monocytes 0.42 k/cumm (0.11-0.7) 08/22/18 07:00 Absolute Eosinophils 0.29 k/cumm (0.0-0.7) 08/22/18 07:00 Absolute Basophils 0.02 k/cumm (0.0-0.2) 08/22/18 07:00 Sodium 140 mmol/L (136-145) 08/22/18 07:00 Potassium 4.1 mmol/L (3.5-5.1) 08/22/18 07:00 Chloride 103 mmol/L (98-107) 08/22/18 07:00 Carbon Dioxide 28.0 mmol/L (21.0-32.0) 08/22/18 07:00 Anion Gap 9.0 mmol/L (3-11) 08/22/18 07:00 BUN 11 mg/dL (7-18) 08/22/18 07:00 Creatinine 0.97 mg/dL (0.70-1.30) 08/22/18 07:00 Estimated GFR/1.73 m2 >= 60.00 (mL/min/1.73m2) 08/22/18 07:00 Glucose 110 mg/dL (70-100) H 08/22/18 07:00 Calcium 9.1 mg/dL (8.5-10.1) 08/22/18 07:00 Magnesium 2.2 mg/dL (1.8-2.4) 08/22/18 07:00 Total Bilirubin 0.3 mg/dL (0.2-1.0) 08/19/18 17:12 AST 18 U/L (15-37) 08/19/18 17:12 ALT 14 U/L (12-78) 08/19/18 17:12 Alkaline Phosphatase 90 U/L (46-116) 08/19/18 17:12 C-Reactive Protein 4.73 mg/dL (0.0-0.3) H 08/22/18 07:00 Total Protein 7.2 g/dL (6.4-8.2) 08/19/18 17:12 Albumin 3.2 g/dL (3.4-5.0) L 08/19/18 17:12
[2018-08-24 07:37] VITALS: BP 132/83; PULSE 72; RESP 18; O2SAT 97
[2018-08-24] MEDS: Docusate Sodium 100 MG CAP PO ×2 (07:45→19:44)
[2018-08-24] MEDS: LORazepam 1 MG TAB PO ×2 (07:45→18:50)
[2018-08-24] MEDS: Gabapentin 300 MG CAP PO ×3 (07:45→19:44)
[2018-08-24] MEDS: HYDROmorphone 2 MG/ML VIAL 1 MG IVP ×4 (10:59→23:08)
[2018-08-24 16:07] VITALS: BP 159/86; PULSE 81; RESP 18; TEMP 36.1; O2SAT 96
--- NOTE | 2018-08-24 16:19 | CHAPLAIN ---
I attempted to visit with Jason yesterday but he was leaving the hospital to pay some bills, he said. He asked me to return in the afternoon. When I returned, his friend Abdoulaye was visiting and they were playing cribbage. We made plans to meet this morning, but he was too tired and had just received pain medication. This afternoon Abdoulaye was visiting and Jason asked me come back tomorrow morning. Jason's daughter was killed last week in a accident, involving a dump truck, shortly after she visited Jason.
--- NOTE | 2018-08-24 18:37 | CMACTNOTE_ITS ---
Care Management Activity Note Jason's affect has shown significant improvement within the last few days. His friend Abdoulaye has been visiting and Jason has picked numerous [employer]ART items including cribbage, cards, coloring, games and requested Parcheesi which CM provided from the [employer] shop today. Jason was fitting with wound vac, and shared feeling pleased with the carry bag-enabling him to ambulate through the hallways independently. He has discussed possible services for his daughter in the Chapel at [facility] facilitated by Erika Quintana.
[2018-08-24] MEDS: Normal Saline Flush 10 ML SYR 20 ML IVP (19:45)
[2018-08-24] MEDS: Normal Saline 500 ML IV (22:52)
[2018-08-25] MEDS: Acetaminophen 500 MG TAB 1000 MG PO ×5 (00:16→23:32)
[2018-08-25] MEDS: Diazepam 5 MG TAB PO (00:17)
[2018-08-25] MEDS: oxyCODONE 15 MG TAB PO ×5 (00:17→23:32)
[2018-08-25] MEDS: Normal Saline Flush 10 ML SYR IVP ×2 (02:08→06:44)
[2018-08-25] MEDS: Ketorolac 15 MG/ML VIAL IVP ×4 (02:09→20:54)
[2018-08-25] MEDS: HYDROmorphone 2 MG/ML VIAL 1 MG IVP ×4 (06:45→20:53)
[2018-08-25 08:00] VITALS: BP 161/89; PULSE 62; RESP 16; TEMP 35.4; O2SAT 98
[2018-08-25] MEDS: Gabapentin 300 MG CAP PO ×3 (08:20→20:54)
[2018-08-25] MEDS: LORazepam 1 MG TAB PO ×2 (08:20→22:51)
[2018-08-25] MEDS: Docusate Sodium 100 MG CAP PO ×2 (08:20→20:54)
[2018-08-25] MEDS: Normal Saline Flush 10 ML SYR 20 ML IVP ×2 (08:21→20:54)
[2018-08-25] MEDS: Lidocaine 2% Multi-Dose 50 ML VIAL 10 ML IJ (10:11)
--- NOTE | 2018-08-25 15:56 | CHAPLAIN ---
Jason was in bed when I visited. He told me that his wound vac had just be adjusted after having not been working right. He expects his friend Abhi to be today to keep him company. Jason said he will be moving into a new apartment with Abhi September. Jason said his daughter's is tomorrow. She was killed in a motor vehicle accident last week. He is not planning on attending and was upset that the was scheduled on his birthday. I offered to hold a memorial service for his daughter in the [facility], but Jason declined the offer. He said he didn't want to think about it, out of sight, out of mind. I let him know that if he changes is mind, we could hold a service any time, even if it is days or weeks from now. He was upbeat in talking about his plans for his new apartment and talked about how compatible he and Abhi are, comparing them to [employer] Odd Couple.
[2018-08-25 16:05] VITALS: BP 158/99; PULSE 89; RESP 18; TEMP 36.3; O2SAT 99
[2018-08-25 16:46] VITALS: BP 150/83; PULSE 91; RESP 18; TEMP 36.4; O2SAT 98
[2018-08-25] MEDS: Milk of Magnesia 30 ML CUP PO (18:19)
[2018-08-26 00:32] VITALS: BP 138/98; PULSE 74; RESP 16; TEMP 36.7; O2SAT 98
[2018-08-26] MEDS: Ketorolac 15 MG/ML VIAL IVP ×4 (01:31→19:40)
[2018-08-26] MEDS: HYDROmorphone 2 MG/ML VIAL 1 MG IVP ×4 (01:31→22:44)
[2018-08-26] MEDS: Normal Saline Flush 10 ML SYR IVP ×5 (01:32→16:52)
[2018-08-26] MEDS: oxyCODONE 15 MG TAB PO ×4 (03:40→19:39)
[2018-08-26 07:00] LABS: C-Reactive Protein 2.48 mg/dL (0.0-0.3)
[2018-08-26] MEDS: Normal Saline 500 ML 100 ML IV (07:03)
[2018-08-26] MEDS: Acetaminophen 500 MG TAB 1000 MG PO ×3 (07:04→16:51)
[2018-08-26 07:40] VITALS: BP 157/102; PULSE 76; RESP 18; TEMP 36.6; O2SAT 97
[2018-08-26] MEDS: Gabapentin 300 MG CAP PO ×3 (08:12→19:30)
[2018-08-26] MEDS: LORazepam 1 MG TAB PO ×2 (08:12→17:28)
[2018-08-26] MEDS: Normal Saline Flush 10 ML SYR 20 ML IVP ×2 (08:13→19:40)
[2018-08-26] MEDS: Docusate Sodium 100 MG CAP PO ×2 (08:13→19:25)
[2018-08-26 16:49] VITALS: TEMP 36.4
[2018-08-26 16:55] VITALS: BP 166/96; PULSE 83; RESP 18; TEMP 36.4; O2SAT 99
--- NOTE | 2018-08-26 17:35 | W.PM.PROGNOT ---
Date of Service Date of service: 08/26/18 Time of Service: 17:35 Assessment and Plan (1) Psoas abscess, left: Current visit: No Status: Acute Dr. Restrepo continues to follow. Continue wound vac. Cultures grew MSSA. Continue IV Ancef for 4-6 week course per ID at [facility] [place] (tentative end date: 09/28 per [facility]). He has a follow up appointment scheduled with [facility] on 09/16/18 at 1430. Taking oxycodone and Toradol for pain, BMP on 08/30/18 to assess renal function. (2) Anxiety: Current visit: No Status: Chronic With history of Bipolar and violent outbursts (per PCP chart). Discussed with Dr. Gilbert, Psychiatry. Start Depakote ER 250 at HS. Assess liver function in [address] Gilbert will see the patient on 08/30/18. Continue PRN ativan. (3) DVT prophylaxis: Current visit: No Status: Acute SCDs for mechanical DVT prophylaxis. Continue frequent ambulation, Continue to encourage oral hydration. (4) Discharge planning issues: Current visit: No Status: Acute He is a FULL code. Continue IV antibiotics per [facility] recommendations. This case was discussed with Dr. Connell who is in agreement. Subjective Interval history since last seen: Mr. Cuevas reports that he is doing well today. He notes that his wound VAC lost suction and had to be changed, his wound VAC causes some discomfort, however, pain is tolerable with current regimen. He continues to ambulate frequently in the halls. He has been drawing/coloring to help with anxiety. He continues to struggle with the loss of his daughter. He has been in contact with his PCP office, Dr. Gilbert and Raven Bobo NP (his psych provider) have discussed his case and recommend initiating Depakote ER for mood stabilization. He is in agreement with this. Exam Narrative Exam Narrative: General: Complexion more pink today, sitting up in recliner, awake and alert, in NAD. Psyche: making good eye contact, answering questions appropriately, pleasant and cooperative. HEENT: Normocephalic, atraumatic. pupils equal and round. MMM. edentulous on top. Neck: supple, no JVD. Respiratory: respirations even and unlabored, lung sounds CTA throughout. Cardiovascular: heart with regular rate and rhythm, no murmur appreciated, no clicks, gallops or rubs. GI: +bs x4, abdomen soft, nontender, no masses appreciated. Extremities: left anterior thigh with wound vac dressing clean, dry and intact. No significant edema to the left thigh, no erythema noted around the dressing. Wound vac with suction, draining. Mild tenderness on palpation. LLE ROM intact. Peripheral pulses palpable bilaterally. Objective Objective Clinical Data: Abnormal lab results 08/26/18 Range/Units 06:28 C-Reactive Protein 2.48 H (0.0-0.3) mg/dL Vital Signs Temperature 36.4 C L 08/26/18 16:55 Temperature Source Tympanic 08/26/18 16:55 Pulse 83 08/26/18 16:55 Pulse Rhythm Regular 08/26/18 16:58 Respiratory Rate 18 08/26/18 16:55 Respiratory Effort Non-Labored 08/26/18 16:58 Respiratory Depth Normal 08/26/18 16:58 Respiratory Pattern Normal 08/26/18 16:58 Blood Pressure 166/96 H 08/26/18 16:55 Pulse Oximetry 99 08/26/18 16:55 Oxygen Delivery Method Room Air 08/26/18 16:55 Oxygen Flow Rate 0 08/26/18 16:55 Pain Level 9 08/26/18 16:49 Comment 08/25/18 01:46 Intake & Output 08/25/18 08/26/18 08/26/18 23:59 11:59 23:59 Intake Total 120 / 955 260 / 740 480 / 740 Balance 120 / 955 260 / 740 480 / 740 Intake: IV 120 / 235 140 / 140 Oral 120 / 600 480 / 600 Other: Urine Color Yellow Urine Appearance Clear Comment pt voiding ad floresita, urine not assessed at this time urine not assessed; pt voiding ad floresita Voiding Methods Toilet Laboratory Results WBC 6.13 k/cumm (4.4-10.8) 08/22/18 07:00 RBC 3.92 m/cumm (4.50-6.00) L 08/22/18 07:00 Hgb 10.8 g/dL (13.5-17.5) L 08/22/18 07:00 Hct 33.0 % (40.0-50.0) L 08/22/18 07:00 MCV 84.2 fL (80-95) 08/22/18 07:00 MCH 27.6 pg (27.0-33.0) 08/22/18 07:00 MCHC 32.7 g/dL (32.0-36.0) 08/22/18 07:00 RDW 15.6 % (11.8-14.1) H 08/22/18 07:00 Plt Count 233 x1000/uL (130-400) 08/22/18 07:00 MPV 8.9 fL (8.0-11.0) 08/22/18 07:00 Immature Gran % 0.3 08/22/18 07:00 Neutrophils % 65.6 08/22/18 07:00 Lymphocytes % 22.2 08/22/18 07:00 Monocytes % 6.9 08/22/18 07:00 Eosinophils % 4.7 08/22/18 07:00 Basophils % 0.3 08/22/18 07:00 Absolute Neutrophils 4.02 k/cumm (1.2-6.7) 08/22/18 07:00 Absolute Lymphocytes 1.36 k/cumm (1.2-3.4) 08/22/18 07:00 Absolute Monocytes 0.42 k/cumm (0.11-0.7) 08/22/18 07:00 Absolute Eosinophils 0.29 k/cumm (0.0-0.7) 08/22/18 07:00 Absolute Basophils 0.02 k/cumm (0.0-0.2) 08/22/18 07:00 Sodium 140 mmol/L (136-145) 08/22/18 07:00 Potassium 4.1 mmol/L (3.5-5.1) 08/22/18 07:00 Chloride 103 mmol/L (98-107) 08/22/18 07:00 Carbon Dioxide 28.0 mmol/L (21.0-32.0) 08/22/18 07:00 Anion Gap 9.0 mmol/L (3-11) 08/22/18 07:00 BUN 11 mg/dL (7-18) 08/22/18 07:00 Creatinine 0.97 mg/dL (0.70-1.30) 08/22/18 07:00 Estimated GFR/1.73 m2 >= 60.00 (mL/min/1.73m2) 08/22/18 07:00 Glucose 110 mg/dL (70-100) H 08/22/18 07:00 Calcium 9.1 mg/dL (8.5-10.1) 08/22/18 07:00 Magnesium 2.2 mg/dL (1.8-2.4) 08/22/18 07:00 Total Bilirubin 0.3 mg/dL (0.2-1.0) 08/19/18 17:12 AST 18 U/L (15-37) 08/19/18 17:12 ALT 14 U/L (12-78) 08/19/18 17:12 Alkaline Phosphatase 90 U/L (46-116) 08/19/18 17:12 C-Reactive Protein 2.48 mg/dL (0.0-0.3) H 08/26/18 06:28 Total Protein 7.2 g/dL (6.4-8.2) 08/19/18 17:12 Albumin 3.2 g/dL (3.4-5.0) L 08/19/18 17:12
[2018-08-26] MEDS: Milk of Magnesia 30 ML CUP PO (19:40)
--- NOTE | 2018-08-27 | NUR.NOTE ---
Nursing Note: Called to bedside by patient, requesting prn pain medication for pain rated 8/10, will treat per MD orders.
[2018-08-27] MEDS: oxyCODONE 15 MG TAB PO ×6 (00:10→22:28)
[2018-08-27] MEDS: Acetaminophen 500 MG TAB 1000 MG PO ×4 (00:11→18:00)
[2018-08-27 00:33] VITALS: BP 147/82; PULSE 77; RESP 18; TEMP 36.6; O2SAT 99
[2018-08-27] MEDS: Ketorolac 15 MG/ML VIAL IVP (02:25)
[2018-08-27] MEDS: HYDROmorphone 2 MG/ML VIAL 1 MG IVP ×5 (02:25→20:05)
[2018-08-27] MEDS: Normal Saline Flush 10 ML SYR IVP (02:26)
--- NOTE | 2018-08-27 02:33 | NUR.NOTE ---
Nursing Note: Called to bedside by patient, pain not controlled by previous medication administration, patient requesting a different prn pain medication, will treat per MD orders.
--- NOTE | 2018-08-27 04:39 | NUR.NOTE ---
Nursing Note: patient requesting prn pain medication, will treat per MD orders.
[2018-08-27] MEDS: Normal Saline 500 ML 30 ML IV (06:35)
[2018-08-27] MEDS: Gabapentin 300 MG CAP PO ×3 (08:01→20:06)
[2018-08-27] MEDS: LORazepam 1 MG TAB PO ×2 (08:01→20:06)
[2018-08-27] MEDS: Docusate Sodium 100 MG CAP PO ×2 (08:01→20:06)
--- NOTE | 2018-08-27 08:01 | PGE_ITS ---
Date of Service Date of service: 08/27/18 Time of Service: 07:58 Assessment and Plan (1) Psoas abscess, left: Current visit: No Status: Acute Jason is a 43-year-old who has a ongoing psoas abscess and soft tissue infection of the left hip. The wound is currently open status post 3 irrigation and debridements. The wound VAC device has not seem to be working. We may retry the wound VAC with some other techniques. However, at this point, we will give him a break. The wound was dressed today with wound cleanser followed by Virobayel Ag and an absorbent dressing. We will continue with daily dressing changes. I will check on him over the weekend and possibly convert him back to a wound VAC if necessary. We will plan to redraw labs on Thursday. Subjective Interval history since last seen: Jason in general reports be doing okay except he is extremely tired. The wound VAC once again did not work overnight. He is very frustrated about the VAC and also his lack of sleep. He denies any fevers or chills. In general, he feels like the pain is getting better although it still present. He has been able to ambulate independently and also go to visits within the community. Exam Narrative Exam Narrative: Evaluation of the left hip shows no surrounding erythema. There is a wound that measures present 12 cm in length, 3-1/2 cm in width and 2 cm in depth. The base of the wound has significant granulation tissue. There is no significant areas of purulence except for a small amount seen in the superior and medial aspect of the wound between the 2 muscle planes. The overall look of the wound is much improved from previous. Generally, he has some tenderness palpation throughout the wound but is not as persistent as it was in the past. The fullness is also decreased. He tolerates some internal and external rotation of the hip. In general, he has significant anxiety about the examination and testing. Objective Objective Clinical Data: Vital Signs Temperature 36.6 C 08/27/18 00:33 Temperature Source Tympanic 08/27/18 00:33 Pulse 77 08/27/18 00:33 Pulse Rhythm Regular 08/27/18 00:00 Respiratory Rate 18 08/27/18 00:33 Respiratory Effort Non-Labored 08/27/18 00:00 Respiratory Depth Normal 08/27/18 00:00 Respiratory Pattern Normal 08/27/18 00:00 Blood Pressure 147/82 H 08/27/18 00:33 Pulse Oximetry 99 08/27/18 00:33 Oxygen Delivery Method Room Air 08/27/18 00:33 Oxygen Flow Rate 0 08/27/18 00:33 Pain Level 8 08/27/18 06:31 Comment 08/25/18 01:46 Intake & Output 08/26/18 08/26/18 08/27/18 11:59 23:59 11:59 Intake Total 260 / 840 580 / 840 130.5 / 130.5 Balance 260 / 840 580 / 840 130.5 / 130.5 Intake: IV 140 / 240 100 / 240 130.5 / 130.5 Oral 120 / 600 480 / 600 Other: Comment urine not assessed; pt voiding ad floresita Voiding Methods Toilet Laboratory Results WBC 6.13 k/cumm (4.4-10.8) 08/22/18 07:00 RBC 3.92 m/cumm (4.50-6.00) L 08/22/18 07:00 Hgb 10.8 g/dL (13.5-17.5) L 08/22/18 07:00 Hct 33.0 % (40.0-50.0) L 08/22/18 07:00 MCV 84.2 fL (80-95) 08/22/18 07:00 MCH 27.6 pg (27.0-33.0) 08/22/18 07:00 MCHC 32.7 g/dL (32.0-36.0) 08/22/18 07:00 RDW 15.6 % (11.8-14.1) H 08/22/18 07:00 Plt Count 233 x1000/uL (130-400) 08/22/18 07:00 MPV 8.9 fL (8.0-11.0) 08/22/18 07:00 Immature Gran % 0.3 08/22/18 07:00 Neutrophils % 65.6 08/22/18 07:00 Lymphocytes % 22.2 08/22/18 07:00 Monocytes % 6.9 08/22/18 07:00 Eosinophils % 4.7 08/22/18 07:00 Basophils % 0.3 08/22/18 07:00 Absolute Neutrophils 4.02 k/cumm (1.2-6.7) 08/22/18 07:00 Absolute Lymphocytes 1.36 k/cumm (1.2-3.4) 08/22/18 07:00 Absolute Monocytes 0.42 k/cumm (0.11-0.7) 08/22/18 07:00 Absolute Eosinophils 0.29 k/cumm (0.0-0.7) 08/22/18 07:00 Absolute Basophils 0.02 k/cumm (0.0-0.2) 08/22/18 07:00 Sodium 140 mmol/L (136-145) 08/22/18 07:00 Potassium 4.1 mmol/L (3.5-5.1) 08/22/18 07:00 Chloride 103 mmol/L (98-107) 08/22/18 07:00 Carbon Dioxide 28.0 mmol/L (21.0-32.0) 08/22/18 07:00 Anion Gap 9.0 mmol/L (3-11) 08/22/18 07:00 BUN 11 mg/dL (7-18) 08/22/18 07:00 Creatinine 0.97 mg/dL (0.70-1.30) 08/22/18 07:00 Estimated GFR/1.73 m2 >= 60.00 (mL/min/1.73m2) 08/22/18 07:00 Glucose 110 mg/dL (70-100) H 08/22/18 07:00 Calcium 9.1 mg/dL (8.5-10.1) 08/22/18 07:00 Magnesium 2.2 mg/dL (1.8-2.4) 08/22/18 07:00 Total Bilirubin 0.3 mg/dL (0.2-1.0) 08/19/18 17:12 AST 18 U/L (15-37) 08/19/18 17:12 ALT 14 U/L (12-78) 08/19/18 17:12 Alkaline Phosphatase 90 U/L (46-116) 08/19/18 17:12 C-Reactive Protein 2.48 mg/dL (0.0-0.3) H 08/26/18 06:28 Total Protein 7.2 g/dL (6.4-8.2) 08/19/18 17:12 Albumin 3.2 g/dL (3.4-5.0) L 08/19/18 17:12
[2018-08-27] MEDS: Normal Saline Flush 10 ML SYR 20 ML IVP ×2 (08:02→20:07)
[2018-08-27] MEDS: Celecoxib 200 MG CAP PO ×2 (08:40→20:06)
[2018-08-27 08:47] VITALS: BP 151/93; PULSE 78; RESP 20; TEMP 36.4; O2SAT 98
--- NOTE | 2018-08-27 14:28 | PDOC.CMPRO ---
- If Service Date Differs Date of service: 08/27/18 Time of Service: 14:28 Care Management Progress Note S/O: Jason is lying in bed on his phone when this poem writer visits this afternoon. CM discussed Jason's eye appointment yesterday at [facility] which Jason states went well, and was thankful that transportation was able to be facilitated. Jason states that he will need new eye glasses and that he has to pick out frames and pay a copay which he is working on. Jason also states that he will have an apartment in September which he is getting with a friend in [facility] which he is looking forward to. Jason continues to voice appreciation for the staff at [facility], as well as his care. A: 43 y/o male admitted to swingbed status 08/19/18 P: Jason will remain in swingbed status for IV antibiotics as well as wound care at this time. He will DC home once medically cleared with no anticipated services.
--- NOTE | 2018-08-27 14:36 | CMPROGNOTE_ITS ---
- If Service Date Differs Date of service: 08/27/18 Time of Service: 14:28 Care Management Progress Note S/O: Jason is lying in bed on his phone when this sign writer letterer or painter visits this afternoon. CM discussed Jason's eye appointment yesterday at [facility] which Jason states went well, and was thankful that transportation was able to be facilitated. Jason states that he will need new eye glasses and that he has to pick out frames and pay a copay which he is working on. Jason also states that he will have an apartment in September which he is getting with a friend in [facility] which he is looking forward to. Jason continues to voice appreciation for the staff at [facility], as well as his care. A: 43 y/o male admitted to swingbed status 08/19/18 P: Jason will remain in swingbed status for IV antibiotics as well as wound care at this time. He will DC home once medically cleared with no anticipated services.
[2018-08-27 16:11] VITALS: BP 165/90; PULSE 77; RESP 18; TEMP 36.2; O2SAT 99
[2018-08-27] MEDS: Milk of Magnesia 30 ML CUP PO (20:07)
[2018-08-27] MEDS: Divalproex Sodium 250 MG TAB.ER.24H PO (22:07)
[2018-08-27 23:56] VITALS: BP 158/92; PULSE 79; RESP 19; TEMP 36.4; O2SAT 99
[2018-08-28] MEDS: oxyCODONE 15 MG TAB PO ×4 (02:40→18:20)
[2018-08-28] MEDS: Normal Saline Flush 10 ML SYR IVP ×4 (04:50→15:54)
[2018-08-28] MEDS: HYDROmorphone 2 MG/ML VIAL 1 MG IVP ×4 (04:50→20:26)
[2018-08-28] MEDS: Acetaminophen 500 MG TAB 1000 MG PO ×3 (05:55→17:40)
[2018-08-28 07:25] VITALS: BP 150/87; PULSE 81; RESP 18; TEMP 36.3; O2SAT 97
[2018-08-28] MEDS: Normal Saline Flush 10 ML SYR 20 ML IVP ×2 (08:12→20:26)
[2018-08-28] MEDS: Docusate Sodium 100 MG CAP PO ×2 (08:13→20:27)
[2018-08-28] MEDS: Gabapentin 300 MG CAP PO ×3 (08:13→20:27)
[2018-08-28] MEDS: LORazepam 1 MG TAB PO ×2 (08:13→21:23)
[2018-08-28] MEDS: Celecoxib 200 MG CAP PO ×2 (08:13→20:26)
[2018-08-28 16:24] VITALS: BP 149/83; PULSE 81; RESP 20; TEMP 36.7; O2SAT 96
--- NOTE | 2018-08-28 17:19 | NUR.NOTE ---
Nursing Note: Pt asking for phone # of cafeteria. [employer] called cafeteria staff and stated that they are setting supper trays if ever patient does not like his supper , staff could call them. Message was relayed to patient without issues.Needs attended.
[2018-08-28 21:14] VITALS: BP 166/101; PULSE 81; RESP 18; TEMP 36.5; O2SAT 99
[2018-08-28] MEDS: Milk of Magnesia 30 ML CUP PO (21:20)
[2018-08-28] MEDS: Divalproex Sodium 250 MG TAB.ER.24H PO (21:20)
[2018-08-29] MEDS: Acetaminophen 500 MG TAB 1000 MG PO ×3 (00:21→12:21)
[2018-08-29] MEDS: HYDROmorphone 2 MG/ML VIAL 1 MG IVP ×5 (04:29→23:08)
[2018-08-29] MEDS: Normal Saline Flush 10 ML SYR IVP ×3 (04:30→09:03)
[2018-08-29] MEDS: Normal Saline 500 ML 20 ML IV (05:25)
[2018-08-29 07:01] LABS: Abs Immature Grans 0.01 k/cumm (0.0-0.09); Absolute Basophil Count 0.01 k/cumm (0.0-0.2); Absolute Eosinophil Count 0.34 k/cumm (0.0-0.7); Absolute Lymphocyte Count 1.61 k/cumm (1.2-3.4); Absolute Monocyte Count 0.47 k/cumm (0.11-0.7); Absolute Neutrophil Count 3.06 k/cumm (1.2-6.7); Basophils % 0.2; Eosinophils % 6.2; HCT 35.7 % (40.0-50.0); HGB 11.2 g/dL (13.5-17.5); Immature Grans % 0.2; Lymphocytes % 29.3; Mean Corp. HGB Concentration 31.4 g/dL (32.0-36.0); Mean Corpuscular Hemoglobin 26.8 pg (27.0-33.0); Mean Corpuscular Volume 85.4 fL (80-95); Monocytes % 8.5; Neutrophils % 55.6; Platelet Count 233 x1000/uL (130-400); RBC 4.18 m/cumm (4.50-6.00); RBC Distribution Width 15.8 % (11.8-14.1)
[2018-08-29 07:10] VITALS: BP 159/103; PULSE 67; RESP 18; TEMP 36.5; O2SAT 99
[2018-08-29 07:20] LABS: Anion Gap 7.1 mmol/L (3-11); BUN 16 mg/dL (7-18); C-Reactive Protein 2.16 mg/dL (0.0-0.3); CO2 29.9 mmol/L (21.0-32.0); CREATININE 1.09 mg/dL (0.70-1.30); Calcium 8.9 mg/dL (8.5-10.1); Chloride 105 mmol/L (98-107); Glucose 107 mg/dL (70-100); Magnesium 2.2 mg/dL (1.8-2.4); Potassium 4.5 mmol/L (3.5-5.1); Sodium 142 mmol/L (136-145)
[2018-08-29] MEDS: Gabapentin 300 MG CAP PO ×3 (07:38→21:19)
[2018-08-29] MEDS: Docusate Sodium 100 MG CAP PO ×2 (07:38→21:19)
[2018-08-29] MEDS: Normal Saline Flush 10 ML SYR 20 ML IVP ×2 (07:38→21:19)
[2018-08-29] MEDS: oxyCODONE 15 MG TAB PO ×3 (07:39→17:25)
[2018-08-29] MEDS: LORazepam 1 MG TAB PO ×2 (07:39→23:09)
[2018-08-29] MEDS: Celecoxib 200 MG CAP PO (07:39)
[2018-08-29] MEDS: Ibuprofen 800 MG TAB PO ×2 (15:32→23:09)
[2018-08-29 16:01] VITALS: BP 170/106; PULSE 74; RESP 19; TEMP 36.6; O2SAT 98
--- NOTE | 2018-08-29 16:55 | PGE_ITS ---
Documented by User: Jessica Abreu NP 08/29/18 17:08 Date of Service Date of service: 08/29/18 Time of Service: 16:52 Assessment and Plan (1) Edema: Start date: 08/29/18 Start time: 16:53 Current visit: Yes Status: Acute Increased edema to LLE from last night per nursing, replaced wound vac,as patient has decreased pain with wound vac. MRI in the am, 800 ibuprofen, celebrax on hold, tylenol IV or PO for pain. (2) Psoas abscess, left: Start date: 08/29/18 Start time: 16:56 Current visit: No Status: Acute Dr. Restrepo continues to follow. Continue wound vac. Cultures grew MSSA. Continue IV Ancef for 4-6 week course per [place] at [facility] [place]tentative end date: 09/28 per [facility] He has a follow up appointment scheduled with [facility] on 09/16/18 at 1430. Taking oxycodone and Toradol for pain, BMP on 08/30/18 to assess renal function. (3) DVT prophylaxis: Start date: 08/29/18 Start time: 16:57 Current visit: No Status: Acute SCDs for mechanical DVT prophylaxis (4) Encounter for management of wound VAC: Start date: 08/29/18 Start time: 16:57 Current visit: Yes Status: Acute wound vac reapplied after increased swelling and pain to L wound, patient feels this helps decrease pain and wound is dry with 4-5 spots for concern. Subjective Patient reports: still having pain Interval history since last seen: Jason is a 42yo male who has had increasing pain, swelling of the left thigh associated with fevers and chills. He has a previous history of IVDU and had a previous infection of the left hip debrided 6 or 7 years ago. He is unclear exactly what was done or if the hip itself was involved. He denies any significant recent infections except for maybe a little something on his foot which has resolved. He is also on the last week of Hep C treatment and has had no complications from the treatment. Over the last 3 days he has felt sick with chills and fevers. He noted some soreness over the anterior left thigh and hip region (directly underneath and adjacent to the previous surgical scar). This has continued, worsened, and has been associated with increased swelling of the region. Today I was asked to see him by nursing as they were concerned with his wound and he did not look as though he was doing well, upon entering room he was laying on his right side, not looking so well. Normally he is ambulatory in hallway but today pain was too severe to get oob which is new in last couple days. Per nursing LLE has more edema then it did last night, when assessing patient LLE was swollen and tender to touch, he jumped when trying to take his bandage off, even palpating pt was very uncomfortable. Wound was present with about 4-5 concerning areas. Wound was pink with edges that were slightly erythemous, I have not previous seen the wound so I have nothing to compare it to, but worsening pain with edema is concerning for worsening possible infections process. MRI ordered for tomorrow, pt asked for wound vac to be re placed as he felt it helped his pain, He was requesting 800 ibuprofen, he is currently on celebrax, so he can have Ibuprofen as long as he does not take celebrax with it. And I put in for IV tylenol to manage his pain vs PO. Exam Narrative Exam Narrative: All systems have been reviewed and are unremarkable expect as noted below Extrem Left lower extremity: edema Other: wound to LE open with edema and errythemic edges, profuse pain with palpation and increasing pain just lying there. Objective Objective Clinical Data: Abnormal lab results 08/29/18 08/29/18 Range/Units 06:37 06:37 RBC 4.18 L (4.50-6.00) m/cumm Hgb 11.2 L (13.5-17.5) g/dL Hct 35.7 L (40.0-50.0) % MCH 26.8 L (27.0-33.0) pg MCHC 31.4 L (32.0-36.0) g/dL RDW 15.8 H (11.8-14.1) % Glucose 107 H (70-100) mg/dL C-Reactive Protein 2.16 H (0.0-0.3) mg/dL Vital Signs Temperature 36.6 C 08/29/18 16:01 Temperature Source Tympanic 08/29/18 16:01 Pulse 74 08/29/18 16:01 Pulse Rhythm Regular 08/29/18 07:45 Respiratory Rate 19 08/29/18 16:01 Respiratory Effort Non-Labored 08/29/18 07:45 Respiratory Depth Normal 08/29/18 07:45 Respiratory Pattern Normal 08/29/18 07:45 Blood Pressure 170/106 H 08/29/18 16:01 Pulse Oximetry 98 08/29/18 16:01 Oxygen Delivery Method Room Air 08/29/18 16:01 Oxygen Flow Rate 0 08/29/18 16:01 Pain Level 8 08/29/18 15:32 Comment 08/25/18 01:46 Intake & Output 08/28/18 08/29/18 08/29/18 23:59 11:59 23:59 Intake Total 860 / 1410 350 / 990 640 / 990 Balance 860 / 810 350 / 990 640 / 990 Intake: IV 260 / 360 100 / 260 160 / 260 Oral 600 / 1050 250 / 730 480 / 730 Other: Urine Color Yellow Urine Appearance Clear Urine Odor None Comment pt voiding ad floresita; urine not assessed passes urine in the tiolet voided into toilet Voiding Methods Toilet Laboratory Results WBC 5.50 k/cumm (4.4-10.8) 08/29/18 06:37 RBC 4.18 m/cumm (4.50-6.00) L 08/29/18 06:37 Hgb 11.2 g/dL (13.5-17.5) L 08/29/18 06:37 Hct 35.7 % (40.0-50.0) L 08/29/18 06:37 MCV 85.4 fL (80-95) 08/29/18 06:37 MCH 26.8 pg (27.0-33.0) L 08/29/18 06:37 MCHC 31.4 g/dL (32.0-36.0) L 08/29/18 06:37 RDW 15.8 % (11.8-14.1) H 08/29/18 06:37 Plt Count 233 x1000/uL (130-400) 08/29/18 06:37 MPV 9.0 fL (8.0-11.0) 08/29/18 06:37 Immature Gran % 0.2 08/29/18 06:37 Neutrophils % 55.6 08/29/18 06:37 Lymphocytes % 29.3 08/29/18 06:37 Monocytes % 8.5 08/29/18 06:37 Eosinophils % 6.2 08/29/18 06:37 Basophils % 0.2 08/29/18 06:37 Absolute Neutrophils 3.06 k/cumm (1.2-6.7) 08/29/18 06:37 Absolute Lymphocytes 1.61 k/cumm (1.2-3.4) 08/29/18 06:37 Absolute Monocytes 0.47 k/cumm (0.11-0.7) 08/29/18 06:37 Absolute Eosinophils 0.34 k/cumm (0.0-0.7) 08/29/18 06:37 Absolute Basophils 0.01 k/cumm (0.0-0.2) 08/29/18 06:37 Sodium 142 mmol/L (136-145) 08/29/18 06:37 Potassium 4.5 mmol/L (3.5-5.1) 08/29/18 06:37 Chloride 105 mmol/L (98-107) 08/29/18 06:37 Carbon Dioxide 29.9 mmol/L (21.0-32.0) 08/29/18 06:37 Anion Gap 7.1 mmol/L (3-11) 08/29/18 06:37 BUN 16 mg/dL (7-18) 08/29/18 06:37 Creatinine 1.09 mg/dL (0.70-1.30) 08/29/18 06:37 Estimated GFR/1.73 m2 >= 60.00 (mL/min/1.73m2) 08/29/18 06:37 Glucose 107 mg/dL (70-100) H 08/29/18 06:37 Calcium 8.9 mg/dL (8.5-10.1) 08/29/18 06:37 Magnesium 2.2 mg/dL (1.8-2.4) 08/29/18 06:37 Total Bilirubin 0.3 mg/dL (0.2-1.0) 08/19/18 17:12 AST 18 U/L (15-37) 08/19/18 17:12 ALT 14 U/L (12-78) 08/19/18 17:12 Alkaline Phosphatase 90 U/L (46-116) 08/19/18 17:12 C-Reactive Protein 2.16 mg/dL (0.0-0.3) H 08/29/18 06:37 Total Protein 7.2 g/dL (6.4-8.2) 08/19/18 17:12 Albumin 3.2 g/dL (3.4-5.0) L 08/19/18 17:12 Documented by User: Isidoro Monk MD 09/11/18 18:13
[2018-08-29] MEDS: ACETAMINOPHEN 1,000 MG/100 ML BTL 400 MG IVPB (21:19)
[2018-08-29] MEDS: Pantoprazole 40 MG TABCR PO (21:19)
[2018-08-30 00:04] VITALS: BP 167/108; PULSE 74; RESP 17; TEMP 36.4; O2SAT 98
--- NOTE | 2018-08-30 00:07 | NUR.NOTE ---
Pt state the medications he is receiving is not helping his pain level. He was medicated with IV tylenol, but within 15mins of completion of medication state he is having pain, the pain level has not been reduced from 9/10. Then medicated with Ibrupofen 800mg, Hydromorphone 1mg.
[2018-08-30] MEDS: Normal Saline Flush 10 ML SYR IVP ×5 (05:27→17:31)
[2018-08-30] MEDS: Ibuprofen 800 MG TAB PO ×2 (05:28→22:03)
[2018-08-30] MEDS: HYDROmorphone 2 MG/ML VIAL 1 MG IVP ×5 (05:35→22:44)
[2018-08-30] MEDS: Pantoprazole 40 MG TABCR PO ×2 (06:07→20:20)
[2018-08-30 07:23] LABS: Abs Immature Grans 0.02 k/cumm (0.0-0.09); Absolute Basophil Count 0.02 k/cumm (0.0-0.2); Absolute Eosinophil Count 0.36 k/cumm (0.0-0.7); Absolute Lymphocyte Count 1.34 k/cumm (1.2-3.4); Absolute Monocyte Count 0.48 k/cumm (0.11-0.7); Absolute Neutrophil Count 3.04 k/cumm (1.2-6.7); Basophils % 0.4; Eosinophils % 6.8; HCT 33.7 % (40.0-50.0); HGB 10.6 g/dL (13.5-17.5); Immature Grans % 0.4; Lymphocytes % 25.5; Mean Corp. HGB Concentration 31.5 g/dL (32.0-36.0); Mean Corpuscular Volume 85.8 fL (80-95); Mean Platelet Volume 9.2 fL (8.0-11.0); Monocytes % 9.1; Neutrophils % 57.8; Platelet Count 205 x1000/uL (130-400); RBC 3.93 m/cumm (4.50-6.00); RBC Distribution Width 15.8 % (11.8-14.1); White Blood Cell Count 5.26 k/cumm (4.4-10.8)
[2018-08-30 07:37] VITALS: BP 155/89; PULSE 57; RESP 20; TEMP 36.4; O2SAT 99
[2018-08-30 07:50] LABS: ALT 10 U/L (12-78); AST 22 U/L (15-37); Alkaline Phosphatase 93 U/L (46-116); Anion Gap 7.3 mmol/L (3-11); BUN 15 mg/dL (7-18); Bilirubin, Total 0.2 mg/dL (0.2-1.0); CO2 28.7 mmol/L (21.0-32.0); CREATININE 0.94 mg/dL (0.70-1.30); Calcium 8.7 mg/dL (8.5-10.1); Chloride 106 mmol/L (98-107); Glucose 104 mg/dL (70-100); Potassium 4.3 mmol/L (3.5-5.1); Sodium 142 mmol/L (136-145); Total Protein 6.6 g/dL (6.4-8.2)
[2018-08-30] MEDS: Docusate Sodium 100 MG CAP PO ×2 (07:50→20:19)
[2018-08-30] MEDS: Gabapentin 300 MG CAP PO ×3 (07:50→20:19)
[2018-08-30] MEDS: oxyCODONE 15 MG TAB PO ×3 (07:53→20:20)
[2018-08-30 08:03] LABS: C-Reactive Protein 1.76 mg/dL (0.0-0.3); Magnesium 1.9 mg/dL (1.8-2.4)
[2018-08-30] MEDS: Normal Saline Flush 10 ML SYR 20 ML IVP ×2 (09:25→21:36)
[2018-08-30] MEDS: Acetaminophen 500 MG TAB 1000 MG PO (10:49)
[2018-08-30] MEDS: LORazepam 1 MG TAB PO ×2 (10:50→22:03)
[2018-08-30] MEDS: Gadoterate meglumine 20 ML VIAL IVP (12:44)
--- NOTE | 2018-08-30 12:54 | W.NUTCONSULT ---
Date of service: 08/30/18 Time of Service: 12:55 Nutritional Consult ASSESSMENT: Nutrition consult for poor wound healing. Please see nutrition consultation dated 08/23/18 for recommendations at that time and estimated energy and protein needs etc. Since 08/23/18 and throughout this admission, Mr. Cuevas has had excellent PO intake. He eats 100% of large meals that he orders. RD and/or CDM encourage him to order nutrient dense foods, particularly high protein foods, with which he is compliant. He also drinks Ensure plus, three times per day for additional calories and protein. He did trial Tony supplements, glutamine and arginine, which are the preferred amino acids for wound healing, and he did not like it and thus we did not send it again. The last weight documented in the EHR is 137 kg on 08/20/18. NUTRITIONAL DIAGNOSIS: Increased nutritional needs related to poor wound healing. INTERVENTION: As above, Mr. Cuevas is meeting his increased calorie and protein needs with food. We can try once again to offer him the Tony supplements perhaps with a more clear rationale of why we would like him to have them twice daily and how they can specifically help him with wound healing. MONITORING AND EVALUATION: 1. Please weight patient once weekly so that we may best monitor his nutritional status. Will follow his weights, PO, and tolerance to supplements. 2. Will evaluate nutrition care plan ongoing and adjust as needed. Thank you for the consult Time Spent in Nutritional Counseling and Treatment: NURYS
--- NOTE | 2018-08-30 13:06 | DI.MRI_ITS ---
SYMPTOM/DIAGNOSIS: INCREASING PAIN AND SWELLING TO SURGICAL AREA LEFT HIP AND PELVIS MRI: Comparison is made with 08/04/[address] of the abdomen and pelvis dated 08/08/18. The exam is limited by patient motion. A left anterior surgical wound is seen over the left hip region. There is surrounding enhancement. There is no visible abscess collection in the area of the surgical wound. Fluid and enhancement remain present around the ileopsoas muscle, greatest distally, at the level of the hip. The abscess collections have significantly in size when compared to previous exams. A small amount of enhancement is again seen in the left anterior acetabulum, unchanged. No new abnormalities are identified. IMPRESSION: Significant interval improvement of ileopsoas abscesses. A small amount of abscess collection remains present around the ileopsoas muscle.
[2018-08-30 16:44] VITALS: BP 160/81; PULSE 78; RESP 18; TEMP 36.3; O2SAT 99
[2018-08-31] MEDS: oxyCODONE 15 MG TAB PO ×5 (02:00→22:15)
[2018-08-31] MEDS: Normal Saline Flush 10 ML SYR IVP ×6 (05:28→22:05)
[2018-08-31] MEDS: HYDROmorphone 2 MG/ML VIAL 1 MG IVP ×4 (06:24→20:26)
[2018-08-31 07:26] LABS: Abs Immature Grans 0.03 k/cumm (0.0-0.09); Absolute Basophil Count 0.02 k/cumm (0.0-0.2); Absolute Eosinophil Count 0.39 k/cumm (0.0-0.7); Absolute Lymphocyte Count 1.81 k/cumm (1.2-3.4); Absolute Monocyte Count 0.55 k/cumm (0.11-0.7); Absolute Neutrophil Count 3.68 k/cumm (1.2-6.7); Basophils % 0.3; HCT 36.9 % (40.0-50.0); HGB 11.5 g/dL (13.5-17.5); Immature Grans % 0.5; Lymphocytes % 27.9; Mean Corp. HGB Concentration 31.2 g/dL (32.0-36.0); Mean Corpuscular Hemoglobin 26.7 pg (27.0-33.0); Mean Corpuscular Volume 85.6 fL (80-95); Mean Platelet Volume 9.1 fL (8.0-11.0); Monocytes % 8.5; Neutrophils % 56.8; Platelet Count 238 x1000/uL (130-400); RBC 4.31 m/cumm (4.50-6.00); RBC Distribution Width 16.1 % (11.8-14.1); White Blood Cell Count 6.48 k/cumm (4.4-10.8)
[2018-08-31 07:30] VITALS: BP 160/96; PULSE 77; RESP 18; TEMP 36.6; O2SAT 98
[2018-08-31 07:30] LABS: Anion Gap 10.1 mmol/L (3-11); BUN 15 mg/dL (7-18); CO2 25.9 mmol/L (21.0-32.0); CREATININE 1.01 mg/dL (0.70-1.30); Calcium 9.1 mg/dL (8.5-10.1); Chloride 104 mmol/L (98-107); Glucose 110 mg/dL (70-100); Potassium 4.4 mmol/L (3.5-5.1); Sodium 140 mmol/L (136-145)
[2018-08-31] MEDS: Ibuprofen 800 MG TAB PO (08:22)
[2018-08-31] MEDS: Docusate Sodium 100 MG CAP PO ×2 (08:22→19:34)
[2018-08-31] MEDS: Gabapentin 300 MG CAP PO ×3 (08:22→19:34)
[2018-08-31] MEDS: Pantoprazole 40 MG TABCR PO ×2 (08:22→19:34)
[2018-08-31] MEDS: Normal Saline Flush 10 ML SYR 20 ML IVP ×2 (08:23→19:34)
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
--- NOTE | 2018-08-31 13:42 | W.NUTRFU ---
Date of service: 08/31/18 Time of Service: 13:43 Nutritional Follow up NOTE: Followed up with Mr. Cuevas on trying the Tony supplements again and explained the rationale as it relates to wound healing. He agreed to give them another try. He stated he will try unflavored Tony in orange juice twice daily. I explained that the recommended Tony therapy is 14 days based on the studies. Will follow up with him to see how he tolerates it. Time Spent in Nutritional Counseling and Treatment: NURYS
[2018-08-31 15:34] VITALS: BP 158/94; PULSE 87; RESP 18; TEMP 37; O2SAT 99
[2018-08-31] MEDS: LORazepam 1 MG TAB PO (19:33)
[2018-08-31] MEDS: Acetaminophen 500 MG TAB 1000 MG PO (19:33)
[2018-08-31 20:06] VITALS: BP 173/89; PULSE 79; RESP 15; TEMP 36.7; O2SAT 100
[2018-09-01] MEDS: Ibuprofen 800 MG TAB PO (00:35)
[2018-09-01] MEDS: Normal Saline Flush 10 ML SYR IVP ×5 (00:35→22:10)
[2018-09-01] MEDS: HYDROmorphone 2 MG/ML VIAL 1 MG IVP ×5 (00:35→22:09)
[2018-09-01 02:45] VITALS: BP 163/90; PULSE 88; RESP 15; TEMP 36.4; O2SAT 98
[2018-09-01] MEDS: Acetaminophen 500 MG TAB 1000 MG PO ×2 (03:50→11:10)
[2018-09-01] MEDS: oxyCODONE 15 MG TAB PO ×4 (03:50→19:39)
[2018-09-01] MEDS: Celecoxib 200 MG CAP PO (05:34)
[2018-09-01] MEDS: Milk of Magnesia 30 ML CUP PO (05:35)
[2018-09-01 07:13] LABS: Abs Immature Grans 0.02 k/cumm (0.0-0.09); Absolute Basophil Count 0.03 k/cumm (0.0-0.2); Absolute Eosinophil Count 0.34 k/cumm (0.0-0.7); Absolute Lymphocyte Count 1.88 k/cumm (1.2-3.4); Absolute Monocyte Count 0.44 k/cumm (0.11-0.7); Absolute Neutrophil Count 3.15 k/cumm (1.2-6.7); Basophils % 0.5; Eosinophils % 5.8; HCT 34.8 % (40.0-50.0); HGB 11.1 g/dL (13.5-17.5); Immature Grans % 0.3; Lymphocytes % 32.1; Mean Corp. HGB Concentration 31.9 g/dL (32.0-36.0); Mean Corpuscular Hemoglobin 27.1 pg (27.0-33.0); Mean Corpuscular Volume 84.9 fL (80-95); Mean Platelet Volume 9.2 fL (8.0-11.0); Monocytes % 7.5; Neutrophils % 53.8; Platelet Count 246 x1000/uL (130-400); RBC Distribution Width 15.9 % (11.8-14.1); White Blood Cell Count 5.86 k/cumm (4.4-10.8)
[2018-09-01 07:30] VITALS: BP 152/102; PULSE 83; RESP 20; TEMP 36.2; O2SAT 96
[2018-09-01 07:38] LABS: Anion Gap 9.9 mmol/L (3-11); BUN 17 mg/dL (7-18); CO2 28.1 mmol/L (21.0-32.0); CREATININE 1.16 mg/dL (0.70-1.30); Calcium 8.8 mg/dL (8.5-10.1); Chloride 104 mmol/L (98-107); Glucose 105 mg/dL (70-100); Magnesium 2.1 mg/dL (1.8-2.4); Potassium 4.1 mmol/L (3.5-5.1); Sodium 142 mmol/L (136-145)
[2018-09-01] MEDS: Pantoprazole 40 MG TABCR PO ×2 (08:43→19:40)
[2018-09-01] MEDS: Docusate Sodium 100 MG CAP PO ×2 (08:43→19:40)
[2018-09-01] MEDS: Gabapentin 300 MG CAP PO ×2 (08:43→19:40)
[2018-09-01] MEDS: Normal Saline Flush 10 ML SYR 20 ML IVP ×2 (08:47→19:40)
--- NOTE | 2018-09-01 10:31 | W.NUTCONSULT ---
Date of service: 09/01/18 Time of Service: 10:31 Nutritional Consult ASSESSMENT: Mr. Cuevas is noted to have a 5.8% weight gain in one month which is significant. On 08/02/18 he was 137 kg and on 08/31/18 he was 145 kg. His BMI is 41.2 kg/m2 consistent with class 3 obesity. His adjusted ideal body weight is 113 kg. His estimated energy needs for gradual weight reduction with the goal of preserving lean body mass are 2300 kcal/day to 2800 kcal/day based on 20-25 kcal/kg/day respectively. This amount of calories theoretically should allow for some weight reduction but also should allow his body to use the proteins/amino acids he eats for wound healing. His estimated protein needs are 170 grams per day (1.5g/kg adjusted ideal body weight) He is drinking Tony twice daily as recommended with glutamine and arginine for wound healing as well. His caloric intake since 08/19/18 has been approximately 3500 kcals to 3700 kcals/day based on estimation of his food choices. His level of intake has been at about 33 kcal/kg of his adjusted ideal body weight which is not highly excessive, however may be excessive if he is not moving as much as his baseline. NUTRITIONAL DIAGNOSIS: Unintentional weight gain related to excess energy intake and insufficient energy output as evidenced by 5.8% weight gain over a one month period. INTERVENTION: Mr. Cuevas was sleeping when I went to go see him. I will discuss the following with him: 1. Reducing his daily caloric intake to 2300 calories per day with 2800 calories as a max. We will d/c his Ensure supplements as he eats more than adequate protein intake of regular food. Will also encourage Mr. Cuevas to switch his homemade dessert to a fruit dessert and overall to reduce sugar intake on his trays. Will provide low calorie, low sugar, and higher protein snack suggestions. 2. Will encourage a high protein diet. Mr. Cuevas will get double portions of the protein entree so that he gets 6 to 8 oz of turkey, chicken, pork etc. Will also encourage high protein snacks such as cottage cheese, fruit with peanut butter etc. to help him meet his protein need of 170 grams per day. Mr. Cuevas will continue to receive Tony twice daily for 14 days. The goal with the Tony is that, by giving Mr. Cuevas sufficient protein from other foods, the body will be able to use the glutamine and arginine from the Tony or in actuality, the body will have sufficient supply of glutamine and arginine such that it will have enough for completing proteins as well as for wound healing. 3. Other than the Tony and 24 oz. per day of low fat milk (if he wants to have milk), will encourage him to have water only and if he needs a break from water to have beverages without calories. MONITORING AND EVALUATION: 1. Will monitor weight and PO intake. Will monitor tolerance to change in composition of diet as well as caloric reduction. 2. Evaluation of nutrition care plan ongoing. Will adjust as needed. 3. Please continue to weight Mr. Cuevas weekly. Thank you for the consult. Time Spent in Nutritional Counseling and Treatment: NURYS
--- NOTE | 2018-09-01 11:38 | PDOC.CMACT ---
- If Service Date Differs Date of service: 09/01/18 Time of Service: 11:38 Care Management Activity Note Jason remains in a swingbed level of care for IV antibiotics and wound vac therapy. Jason is doing well in the swingbed, he obtains items from the activity cart weekly, and likes to do adult coloring. Jason has family/friends whom visit and are also supportive. Jason states that he would like to go to [place] on Thursday for a probate court hearing in regards to his daughter. HUNTER spoke with MARYBETH Luo, whom states that Jason can do this, he will however miss one dose of his IV antibiotics. Appointments 09/07/18 @ 1:45 with General Surgery at 4L with Jagjit Pastor and Moni Lozada. RCT to transport at 1200 09/16/18 @ 2:15 with ID at 5C with Joellen Meier. RCT to transport @ 1245.
--- NOTE | 2018-09-01 13:17 | CMACTNOTE_ITS ---
- If Service Date Differs Date of service: 09/01/18 Time of Service: 11:38 Care Management Activity Note Jason remains in a swingbed level of care for IV antibiotics and wound vac therapy. Jason is doing well in the swingbed, he obtains items from the activity cart weekly, and likes to do adult coloring. Jason has family/friends whom visit and are also supportive. Jason states that he would like to go to [place] on Thursday for a probate court hearing in regards to his daughter. CM spoke w marcelle Luo NP, whom states that Jason can do this, he will however miss one dose of his IV antibiotics. Appointments 09/07/18 @ 1:45 with General Surgery at 4L with Jagjit Pastor and Moni bansal. RCT to transport at 1200 09/16/18 @ 2:15 with ID at 5C with Joellen Meier. RCT to transport @ 1245.
[2018-09-01] MEDS: Normal Saline 500 ML 30 ML IV (15:09)
[2018-09-01] MEDS: LORazepam 2 MG/ML VIAL 1 MG IVP (17:05)
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
[2018-09-01 19:40] VITALS: BP 147/83; PULSE 83; RESP 19; TEMP 36.1; O2SAT 99
[2018-09-01] MEDS: LORazepam 1 MG TAB PO (22:10)
--- NOTE | 2018-09-01 22:20 | W.PM.PROGNOT ---
Date of Service Date of service: 09/01/18 Time of Service: 16:20 Assessment and Plan (1) Psoas abscess, left: Current visit: No Status: Acute Jason is s/p multiple I&D for a left hip/psoas abscess. He seems to be making some improvements and the CRP continues to trend in the right direction. MRI also shows decrease in fluid amount, expanse, and size. Wound vac was changed today with good tissue quality and the drainage seems to be down significantly. I did make the sponge a little smaller today in hopes that we can get this wound to contract some. Continue Ancef. Continue MWF wound vac changes. Subjective Interval history since last seen: Jason in general has been dong well. He reports les issues with the wound vac. He feels less presure in the the left leg and has been able to mobilize. He denies any fever or chills. Minimal drainage from the wound vac. Exam Narrative Exam Narrative: Anxious but tolerates exam and wound vac change much better than in the past. The woud vac is removed which shows a roughly [id number] wound with significant granulation of the underlying soft tissues. There are only a few punctate areas of focal exudate which are adherent. There is some separation of the tissue planes but no significant tunneling. No expressible fluid. He tolerates manipulation of the thigh and soft tissues and the wound vac is applied. No significant pain wth ER/IR of the leg. Objective Objective Clinical Data: Abnormal lab results 09/01/18 09/01/18 Range/Units 06:20 06:20 RBC 4.10 L (4.50-6.00) m/cumm Hgb 11.1 L (13.5-17.5) g/dL Hct 34.8 L (40.0-50.0) % MCHC 31.9 L (32.0-36.0) g/dL RDW 15.9 H (11.8-14.1) % Glucose 105 H (70-100) mg/dL Vital Signs Temperature 36.1 C L 09/01/18 19:40 Temperature Source Tympanic 09/01/18 19:40 Pulse 83 09/01/18 19:40 Pulse Rhythm Regular 09/01/18 15:50 Respiratory Rate 19 09/01/18 19:40 Respiratory Effort Non-Labored 01/30/19 15:50 Respiratory Depth Normal 09/01/18 15:50 Respiratory Pattern Normal 09/01/18 15:50 Blood Pressure 147/83 H 09/01/18 19:40 Pulse Oximetry 99 09/01/18 19:40 Oxygen Delivery Method Room Air 09/01/18 19:40 Oxygen Flow Rate 0 09/01/18 19:40 Pain Level 5 09/01/18 14:31 Comment 08/31/18 20:06 Intake & Output 08/31/18 09/01/18 09/01/18 23:59 11:59 23:59 Intake Total 700 / 1130 590 / 930 340 / 930 Balance 700 / 1130 590 / 930 340 / 930 Weight 145.4 kg Intake: IV 220 / 350 190 / 290 100 / 290 Oral 480 / 780 400 / 640 240 / 640 Other: Urine Appearance Clear Comment pt gets up AD DARIUS to void. Pt Voids independent. Voiding Methods Toilet Laboratory Results WBC 5.86 k/cumm (4.4-10.8) 09/01/18 06:20 RBC 4.10 m/cumm (4.50-6.00) L 09/01/18 06:20 Hgb 11.1 g/dL (13.5-17.5) L 09/01/18 06:20 Hct 34.8 % (40.0-50.0) L 09/01/18 06:20 MCV 84.9 fL (80-95) 09/01/18 06:20 MCH 27.1 pg (27.0-33.0) 09/01/18 06:20 MCHC 31.9 g/dL (32.0-36.0) L 09/01/18 06:20 RDW 15.9 % (11.8-14.1) H 09/01/18 06:20 Plt Count 246 x1000/uL (130-400) 09/01/18 06:20 MPV 9.2 fL (8.0-11.0) 09/01/18 06:20 Immature Gran % 0.3 09/01/18 06:20 Neutrophils % 53.8 09/01/18 06:20 Lymphocytes % 32.1 09/01/18 06:20 Monocytes % 7.5 09/01/18 06:20 Eosinophils % 5.8 09/01/18 06:20 Basophils % 0.5 09/01/18 06:20 Absolute Neutrophils 3.15 k/cumm (1.2-6.7) 09/01/18 06:20 Absolute Lymphocytes 1.88 k/cumm (1.2-3.4) 09/01/18 06:20 Absolute Monocytes 0.44 k/cumm (0.11-0.7) 09/01/18 06:20 Absolute Eosinophils 0.34 k/cumm (0.0-0.7) 09/01/18 06:20 Absolute Basophils 0.03 k/cumm (0.0-0.2) 09/01/18 06:20 Sodium 142 mmol/L (136-145) 09/01/18 06:20 Potassium 4.1 mmol/L (3.5-5.1) 09/01/18 06:20 Chloride 104 mmol/L (98-107) 09/01/18 06:20 Carbon Dioxide 28.1 mmol/L (21.0-32.0) 09/01/18 06:20 Anion Gap 9.9 mmol/L (3-11) 09/01/18 06:20 BUN 17 mg/dL (7-18) 09/01/18 06:20 Creatinine 1.16 mg/dL (0.70-1.30) 09/01/18 06:20 Estimated GFR/1.73 m2 >= 60.00 (mL/min/1.73m2) 09/01/18 06:20 Glucose 105 mg/dL (70-100) H 09/01/18 06:20 Calcium 8.8 mg/dL (8.5-10.1) 09/01/18 06:20 Magnesium 2.1 mg/dL (1.8-2.4) 09/01/18 06:20 Total Bilirubin 0.2 mg/dL (0.2-1.0) 08/30/18 06:54 AST 22 U/L (15-37) 08/30/18 06:54 ALT 10 U/L (12-78) L 08/30/18 06:54 Alkaline Phosphatase 93 U/L (46-116) 08/30/18 06:54 C-Reactive Protein 1.76 mg/dL (0.0-0.3) H 08/30/18 06:54 Total Protein 6.6 g/dL (6.4-8.2) 08/30/18 06:54 Albumin 3.0 g/dL (3.4-5.0) L 08/30/18 06:54
[2018-09-02] MEDS: oxyCODONE 15 MG TAB PO ×4 (01:11→19:33)
[2018-09-02] MEDS: Ibuprofen 800 MG TAB PO ×4 (01:11→19:33)
[2018-09-02] MEDS: Acetaminophen 500 MG TAB 1000 MG PO ×3 (04:47→22:37)
[2018-09-02 04:48] VITALS: BP 150/89; PULSE 86; RESP 20; TEMP 36.1; O2SAT 97
[2018-09-02] MEDS: Normal Saline Flush 10 ML SYR IVP ×6 (04:48→22:37)
[2018-09-02] MEDS: HYDROmorphone 2 MG/ML VIAL 1 MG IVP ×4 (04:48→22:36)
[2018-09-02 07:30] VITALS: BP 146/91; PULSE 70; RESP 18; TEMP 36.6; O2SAT 98
[2018-09-02 08:13] LABS: Abs Immature Grans 0.01 k/cumm (0.0-0.09); Absolute Basophil Count 0.02 k/cumm (0.0-0.2); Absolute Eosinophil Count 0.32 k/cumm (0.0-0.7); Absolute Lymphocyte Count 1.39 k/cumm (1.2-3.4); Absolute Monocyte Count 0.32 k/cumm (0.11-0.7); Absolute Neutrophil Count 3.35 k/cumm (1.2-6.7); Basophils % 0.4; Eosinophils % 5.9; HCT 34.6 % (40.0-50.0); Immature Grans % 0.2; Lymphocytes % 25.7; Mean Corp. HGB Concentration 31.8 g/dL (32.0-36.0); Mean Corpuscular Hemoglobin 27.3 pg (27.0-33.0); Mean Corpuscular Volume 85.9 fL (80-95); Mean Platelet Volume 9.5 fL (8.0-11.0); Monocytes % 5.9; Neutrophils % 61.9; Platelet Count 221 x1000/uL (130-400); RBC 4.03 m/cumm (4.50-6.00); RBC Distribution Width 15.7 % (11.8-14.1); White Blood Cell Count 5.41 k/cumm (4.4-10.8)
[2018-09-02 08:25] LABS: Anion Gap 8.8 mmol/L (3-11); BUN 20 mg/dL (7-18); CO2 28.2 mmol/L (21.0-32.0); CREATININE 1.12 mg/dL (0.70-1.30); Calcium 8.9 mg/dL (8.5-10.1); Chloride 104 mmol/L (98-107); Glucose 161 mg/dL (70-100); Magnesium 2.1 mg/dL (1.8-2.4); Potassium 4.1 mmol/L (3.5-5.1); Sodium 141 mmol/L (136-145)
[2018-09-02 08:29] LABS: C-Reactive Protein 2.44 mg/dL (0.0-0.3)
[2018-09-02] MEDS: Normal Saline Flush 10 ML SYR 20 ML IVP ×2 (11:20→19:32)
[2018-09-02] MEDS: Docusate Sodium 100 MG CAP PO ×2 (11:21→19:33)
[2018-09-02] MEDS: Pantoprazole 40 MG TABCR PO ×2 (11:22→19:33)
[2018-09-02] MEDS: Gabapentin 300 MG CAP PO ×3 (11:22→19:32)
[2018-09-02 16:10] VITALS: BP 143/86; PULSE 83; RESP 18; TEMP 36.7; O2SAT 97
[2018-09-02] MEDS: LORazepam 1 MG TAB PO (19:32)
[2018-09-02] MEDS: Diazepam 5 MG TAB PO (22:37)
[2018-09-02 23:10] VITALS: BP 144/85; PULSE 75; RESP 18; TEMP 36.3; O2SAT 99
[2018-09-03] MEDS: oxyCODONE 15 MG TAB PO ×7 (00:37→23:41)
[2018-09-03] MEDS: Acetaminophen 500 MG TAB 1000 MG PO ×2 (04:27→20:10)
[2018-09-03] MEDS: Normal Saline Flush 10 ML SYR IVP ×3 (05:40→14:57)
[2018-09-03] MEDS: HYDROmorphone 2 MG/ML VIAL 1 MG IVP (06:41)
[2018-09-03 07:24] LABS: Abs Immature Grans 0.02 k/cumm (0.0-0.09); Absolute Basophil Count 0.02 k/cumm (0.0-0.2); Absolute Eosinophil Count 0.38 k/cumm (0.0-0.7); Absolute Lymphocyte Count 1.87 k/cumm (1.2-3.4); Absolute Monocyte Count 0.45 k/cumm (0.11-0.7); Absolute Neutrophil Count 3.64 k/cumm (1.2-6.7); Basophils % 0.3; HCT 36.3 % (40.0-50.0); HGB 11.6 g/dL (13.5-17.5); Immature Grans % 0.3; Lymphocytes % 29.3; Mean Corpuscular Hemoglobin 27.1 pg (27.0-33.0); Mean Corpuscular Volume 84.8 fL (80-95); Mean Platelet Volume 9.4 fL (8.0-11.0); Monocytes % 7.1; Platelet Count 242 x1000/uL (130-400); RBC 4.28 m/cumm (4.50-6.00); RBC Distribution Width 15.7 % (11.8-14.1); White Blood Cell Count 6.38 k/cumm (4.4-10.8)
[2018-09-03 07:39] LABS: Anion Gap 8.3 mmol/L (3-11); BUN 22 mg/dL (7-18); CO2 26.7 mmol/L (21.0-32.0); CREATININE 1.13 mg/dL (0.70-1.30); Calcium 8.7 mg/dL (8.5-10.1); Chloride 105 mmol/L (98-107); Glucose 133 mg/dL (70-100); Magnesium 2.1 mg/dL (1.8-2.4); Sodium 140 mmol/L (136-145)
[2018-09-03 07:50] VITALS: BP 178/88; PULSE 90; RESP 20; TEMP 36.6; O2SAT 98
[2018-09-03] MEDS: Pantoprazole 40 MG TABCR PO ×2 (08:36→20:01)
[2018-09-03] MEDS: Docusate Sodium 100 MG CAP PO ×2 (08:37→20:00)
[2018-09-03] MEDS: Ibuprofen 800 MG TAB PO ×3 (08:37→23:29)
[2018-09-03] MEDS: Gabapentin 300 MG CAP PO ×2 (08:37→14:55)
[2018-09-03] MEDS: Normal Saline Flush 10 ML SYR 20 ML IVP ×2 (08:38→19:59)
[2018-09-03] MEDS: amLODIPine 5 MG TAB PO (10:21)
[2018-09-03] MEDS: LORazepam 1 MG TAB PO (11:37)
[2018-09-03 16:04] VITALS: BP 155/100; PULSE 82; RESP 20; TEMP 36.8; O2SAT 99
--- NOTE | 2018-09-03 22:10 | NUR.NOTE ---
Patient refused to be assess this evening because he is upset that his pain is not being controlled. He also state he wanted to speak to his CM, same reported to charge nurse. Patient is also stating he wants to be discharge and go to another hospital. He is currently requesting for his wound vac to be remove because it is causing the pain to be worst. Same reported to the charge nurse.
[2018-09-03] MEDS: Diazepam 5 MG TAB PO (23:30)
--- NOTE | 2018-09-03 23:45 | NUR.NOTE ---
[id number]: Spoke with patient who requested wound vac to be discontinued secondary to pain. Encouraged pt to keep wound vac as it is the best way for his wound to heal. Pt refused stating he wants it discontinued tonight. Notified Rosenda RNCC and Alyce, pt's primary RN.
--- NOTE | 2018-09-04 00:42 | NUR.NOTE ---
Patient state he no longer wants the wound vac removed. Same was reported to the charge nurse.
[2018-09-04] MEDS: oxyCODONE 15 MG TAB PO ×2 (06:12→09:29)
[2018-09-04] MEDS: Normal Saline Flush 10 ML SYR 20 ML IVP ×2 (06:12→23:18)
[2018-09-04] MEDS: LORazepam 1 MG TAB PO (06:13)
[2018-09-04] MEDS: Acetaminophen 500 MG TAB 1000 MG PO (06:13)
[2018-09-04 07:42] LABS: Abs Immature Grans 0.01 k/cumm (0.0-0.09); Absolute Basophil Count 0.02 k/cumm (0.0-0.2); Absolute Eosinophil Count 0.33 k/cumm (0.0-0.7); Absolute Lymphocyte Count 1.78 k/cumm (1.2-3.4); Absolute Monocyte Count 0.35 k/cumm (0.11-0.7); Absolute Neutrophil Count 2.24 k/cumm (1.2-6.7); Basophils % 0.4; HCT 35.5 % (40.0-50.0); HGB 11.2 g/dL (13.5-17.5); Immature Grans % 0.2; Lymphocytes % 37.6; Mean Corp. HGB Concentration 31.5 g/dL (32.0-36.0); Mean Corpuscular Hemoglobin 26.8 pg (27.0-33.0); Mean Corpuscular Volume 84.9 fL (80-95); Mean Platelet Volume 9.4 fL (8.0-11.0); Monocytes % 7.4; Neutrophils % 47.4; Platelet Count 235 x1000/uL (130-400); RBC 4.18 m/cumm (4.50-6.00); RBC Distribution Width 15.6 % (11.8-14.1); White Blood Cell Count 4.73 k/cumm (4.4-10.8)
[2018-09-04 07:50] LABS: Anion Gap 8.3 mmol/L (3-11); BUN 22 mg/dL (7-18); CO2 27.7 mmol/L (21.0-32.0); CREATININE 0.98 mg/dL (0.70-1.30); Calcium 8.9 mg/dL (8.5-10.1); Chloride 106 mmol/L (98-107); Glucose 103 mg/dL (70-100); Potassium 4.1 mmol/L (3.5-5.1); Sodium 142 mmol/L (136-145)
[2018-09-04] MEDS: Docusate Sodium 100 MG CAP PO ×2 (09:30→21:12)
[2018-09-04] MEDS: Ibuprofen 800 MG TAB PO ×3 (09:30→21:12)
[2018-09-04] MEDS: amLODIPine 5 MG TAB PO (09:30)
[2018-09-04] MEDS: DULoxetine 30 MG CAP PO (09:30)
[2018-09-04] MEDS: cloNIDine 0.1 MG PATCH TD (09:41)
[2018-09-04 09:42] VITALS: BP 179/107; PULSE 77; RESP 28; TEMP 36.5; O2SAT 98
[2018-09-04] MEDS: oxyCODONE 15 MG TAB 30 MG PO ×3 (10:39→21:12)
--- NOTE | 2018-09-04 15:41 | W.PM.PROGNOT ---
Date of Service Date of service: 09/04/18 Time of Service: 09:15 Assessment and Plan (1) Uncontrolled pain: Current visit: Yes Status: Acute The patient states that oxycodone 15 mg PO Q4 hrs prn is no enough. He agrees to try 30 mg PO q4 hrs, promising to let me know if it is too much or not enough. He agrees that we will work together to wean his pain medications as his condition improves. (2) Anxiety: Current visit: Yes Status: Chronic The patient is able to verbalize clear triggers for what is driving the process (for example, dirt on the floor, his perception of the clinical team not talking to him about his pain medication changes). At this point, I do not feel that there needs to be a change in the medication regimen. (3) Edema: Current visit: Yes Status: Acute Clinically not very impressive today. Encourage ambulation. (4) Psoas abscess, left: Current visit: No Status: Acute Due to MSSA, with wound vac in place. Continue ancef IV with the end-date of 09/28 per [facility] [place]). He has a follow up appointment scheduled with [facility] [place] [facility] ID on 09/16/18 at 1430. Subjective Interval history since last seen: Patient stated that he wanted to leave AMA this morning. His reasons were that 1. Narcotics were being weaned too quickly. 2. He cannot sleep at night with a beeping IV pump and he feels like when he presses the nurse call button, it takes a while for someone to come and stop the beeping. 3. 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 He is willing to stay if we, the clinical team, are able to work with him on replacement of the dilaudid with something oral, work with him on not having any medications being given to him at night and try to keep his room free of medical clutter. Otherwise, he continues to report L hip pain at the site of the insertion of the wound vac and anxiety. Exam Narrative Exam Narrative: General: Obese male, anxious, but reasonable Psychiatric: anxious, but appropriate speech pattern/content Neuro: intact HEENT: EOMI, MMM Abdomen: nondistended Extremities: wound vac in place, able to ambulate; 5/5 strength throughout Objective Objective Clinical Data: Abnormal lab results 09/04/18 09/04/18 Range/Units 06:25 06:25 RBC 4.18 L (4.50-6.00) m/cumm Hgb 11.2 L (13.5-17.5) g/dL Hct 35.5 L (40.0-50.0) % MCH 26.8 L (27.0-33.0) pg MCHC 31.5 L (32.0-36.0) g/dL RDW 15.6 H (11.8-14.1) % BUN 22 H (7-18) mg/dL Glucose 103 H (70-100) mg/dL Vital Signs Temperature 36.5 C 09/04/18 09:42 Temperature Source Tympanic 09/04/18 09:42 Pulse 77 09/04/18 09:42 Pulse Rhythm Regular 09/04/18 09:42 Respiratory Rate 28 H 09/04/18 09:42 Respiratory Effort Non-Labored 09/04/18 09:42 Respiratory Depth Normal 09/04/18 09:42 Respiratory Pattern Normal 09/04/18 09:42 Blood Pressure 179/107 H 09/04/18 09:42 Pulse Oximetry 98 09/04/18 09:42 Oxygen Delivery Method Room Air 09/04/18 09:42 Oxygen Flow Rate 0 09/04/18 09:42 Pain Level 8 09/04/18 09:42 Comment 09/03/18 22:00 Intake & Output 09/03/18 09/04/18 09/04/18 23:59 11:59 23:59 Intake Total 350 / 1320 220 / 220 Balance 350 / 1320 220 / 220 Intake: IV 110 / 360 220 / 220 Oral 240 / 960 Other: Comment voiding indpendently Laboratory Results WBC 4.73 k/cumm (4.4-10.8) 09/04/18 06:25 RBC 4.18 m/cumm (4.50-6.00) L 09/04/18 06:25 Hgb 11.2 g/dL (13.5-17.5) L 09/04/18 06:25 Hct 35.5 % (40.0-50.0) L 09/04/18 06:25 MCV 84.9 fL (80-95) 09/04/18 06:25 MCH 26.8 pg (27.0-33.0) L 09/04/18 06:25 MCHC 31.5 g/dL (32.0-36.0) L 09/04/18 06:25 RDW 15.6 % (11.8-14.1) H 09/04/18 06:25 Plt Count 235 x1000/uL (130-400) 09/04/18 06:25 MPV 9.4 fL (8.0-11.0) 09/04/18 06:25 Immature Gran % 0.2 09/04/18 06:25 Neutrophils % 47.4 09/04/18 06:25 Lymphocytes % 37.6 09/04/18 06:25 Monocytes % 7.4 09/04/18 06:25 Eosinophils % 7.0 09/04/18 06:25 Basophils % 0.4 09/04/18 06:25 Absolute Neutrophils 2.24 k/cumm (1.2-6.7) 09/04/18 06:25 Absolute Lymphocytes 1.78 k/cumm (1.2-3.4) 09/04/18 06:25 Absolute Monocytes 0.35 k/cumm (0.11-0.7) 09/04/18 06:25 Absolute Eosinophils 0.33 k/cumm (0.0-0.7) 09/04/18 06:25 Absolute Basophils 0.02 k/cumm (0.0-0.2) 09/04/18 06:25 Sodium 142 mmol/L (136-145) 09/04/18 06:25 Potassium 4.1 mmol/L (3.5-5.1) 09/04/18 06:25 Chloride 106 mmol/L (98-107) 09/04/18 06:25 Carbon Dioxide 27.7 mmol/L (21.0-32.0) 09/04/18 06:25 Anion Gap 8.3 mmol/L (3-11) 09/04/18 06:25 BUN 22 mg/dL (7-18) H 09/04/18 06:25 Creatinine 0.98 mg/dL (0.70-1.30) 09/04/18 06:25 Estimated GFR/1.73 m2 >= 60.00 (mL/min/1.73m2) 09/04/18 06:25 Glucose 103 mg/dL (70-100) H 09/04/18 06:25 Calcium 8.9 mg/dL (8.5-10.1) 09/04/18 06:25 Magnesium 2.0 mg/dL (1.8-2.4) 09/04/18 06:25 Total Bilirubin 0.2 mg/dL (0.2-1.0) 08/30/18 06:54 AST 22 U/L (15-37) 08/30/18 06:54 ALT 10 U/L (12-78) L 08/30/18 06:54 Alkaline Phosphatase 93 U/L (46-116) 08/30/18 06:54 C-Reactive Protein 2.44 mg/dL (0.0-0.3) H 09/02/18 06:47 Total Protein 6.6 g/dL (6.4-8.2) 08/30/18 06:54 Albumin 3.0 g/dL (3.4-5.0) L 08/30/18 06:54
[2018-09-04 16:27] VITALS: BP 213/128; PULSE 98; RESP 22; TEMP 36.3; O2SAT 97
[2018-09-04] MEDS: Normal Saline Flush 10 ML SYR IVP (16:33)
[2018-09-04 17:34] VITALS: BP 162/106; PULSE 88
[2018-09-04] MEDS: Pantoprazole 40 MG TABCR PO (21:12)
[2018-09-04] MEDS: Gabapentin 300 MG CAP PO (21:12)
[2018-09-05] VITALS: BP 164/96; PULSE 73; RESP 16; TEMP 36.6; O2SAT 98
[2018-09-05] MEDS: oxyCODONE 15 MG TAB 30 MG PO ×6 (01:18→22:36)
[2018-09-05] MEDS: LORazepam 1 MG TAB PO (04:12)
[2018-09-05] MEDS: Normal Saline Flush 10 ML SYR IVP ×2 (06:48→14:17)
[2018-09-05] MEDS: amLODIPine 5 MG TAB PO (09:16)
[2018-09-05] MEDS: Normal Saline Flush 10 ML SYR 20 ML IVP ×2 (09:16→20:55)
[2018-09-05] MEDS: Pantoprazole 40 MG TABCR PO ×2 (09:16→20:55)
[2018-09-05] MEDS: Ibuprofen 800 MG TAB PO ×3 (09:16→20:55)
[2018-09-05] MEDS: Docusate Sodium 100 MG CAP PO ×2 (09:16→20:55)
[2018-09-05 09:30] VITALS: BP 137/75; PULSE 71; RESP 16; TEMP 36.4; O2SAT 97
[2018-09-05 15:57] VITALS: BP 141/90; PULSE 76; RESP 18; TEMP 36.8; O2SAT 97
[2018-09-05] MEDS: Gabapentin 600 MG TAB PO (21:44)
[2018-09-05] MEDS: Normal Saline 500 ML IV (21:45)
[2018-09-05 23:35] VITALS: BP 133/83; PULSE 67; RESP 16; TEMP 36.8; O2SAT 98
[2018-09-06] MEDS: oxyCODONE 15 MG TAB 30 MG PO ×5 (02:55→21:40)
[2018-09-06] MEDS: Acetaminophen 500 MG TAB 1000 MG PO ×2 (02:55→16:51)
[2018-09-06] MEDS: Normal Saline Flush 10 ML SYR IVP (06:41)
[2018-09-06 07:43] VITALS: BP 145/84; PULSE 75; RESP 18; TEMP 36.6; O2SAT 98
[2018-09-06] MEDS: amLODIPine 5 MG TAB PO (07:44)
[2018-09-06] MEDS: Milk of Magnesia 30 ML CUP PO (07:44)
[2018-09-06] MEDS: Docusate Sodium 100 MG CAP PO ×2 (07:45→19:53)
[2018-09-06] MEDS: Ibuprofen 800 MG TAB PO ×3 (07:45→19:52)
[2018-09-06] MEDS: Pantoprazole 40 MG TABCR PO ×2 (07:45→19:52)
[2018-09-06] MEDS: DULoxetine 30 MG CAP PO (07:45)
[2018-09-06] MEDS: Normal Saline Flush 10 ML SYR 20 ML IVP ×2 (07:45→19:53)
[2018-09-06] MEDS: Gabapentin 300 MG CAP PO (14:19)
[2018-09-06 15:49] VITALS: BP 161/98; PULSE 65; RESP 18; TEMP 36.6; O2SAT 97
--- NOTE | 2018-09-06 18:21 | W.PM.PROGNOT ---
Date of Service Date of service: 09/06/18 Time of Service: 07:21 Assessment and Plan (1) Psoas abscess, left: Current visit: No Status: Acute Jason is a 43-year-old status post multiple irrigations and debridements of his left hip. He continues have an abscess and infection of the left hip and psoas muscle. He is on appropriate antibiotics. His wound is being managed with a wound VAC currently. Still produces some purulent material. He has yet had resolution of his CRP. He is to visit with [facility] surgery tomorrow. I change wound VAC today and I am anxious to hear their thoughts. Repeat MRI did show significant resolution of abscess except for that around the psoas tendon. Subjective Interval history since last seen: Jason had a difficult weekend. He has multiple social stressors at play. He has been having continued pain and was frustrated by the way his pain management is currently progressing. He has been able to tolerate the wound VAC and he did well over the weekend until late last night. Started malfunctioning they are unable to get it fixed. Therefore, they placed a dry dressing on. He denies any fevers or chills. He has been able to ambulate without significant limitation. He still feels pain deep within the groin and pelvis. Exam Narrative Exam Narrative: No acute distress. Alert and oriented x3. Participates with the wound VAC change in the examination. The dressing was removed from the left hip. There was some mild seropurulent discharge at the base of the wound. This was dried. The overall appearance of the wound was healthy with granulation tissue seen with a very small punctate areas of fibrinous material. The maximum depth was about 2 cm. There is some mild tracking between tissue planes but no true tunneling. A new wound that was applied without difficulty. Some mild swelling of the thigh but no surrounding erythema. Objective Objective Clinical Data: Vital Signs Temperature 36.6 C 09/06/18 15:49 Temperature Source Tympanic 09/06/18 15:49 Pulse 65 09/06/18 15:49 Pulse Rhythm Regular 09/06/18 08:21 Respiratory Rate 18 09/06/18 15:49 Respiratory Effort Non-Labored 09/06/18 08:21 Respiratory Depth Normal 09/06/18 08:21 Respiratory Pattern Normal 09/06/18 08:21 Blood Pressure 161/98 H 09/06/18 15:49 Pulse Oximetry 97 09/06/18 15:49 Oxygen Delivery Method Room Air 09/06/18 15:49 Oxygen Flow Rate 0 09/06/18 15:49 Pain Level 8 09/06/18 16:51 Comment 09/04/18 16:27 Intake & Output 09/05/18 09/06/18 09/06/18 23:59 11:59 23:59 Intake Total 273.338 / 733.338 590 / 990 400 / 990 Balance 273.338 / 733.338 590 / 990 400 / 990 Intake: IV 273.338 / 373.338 110 / 210 100 / 210 Oral 480 / 780 300 / 780 Other: Comment pt voiding ad floresita in toilet; urine not assessed at this time. pt denies GI/ issues Stool Characteristics Soft Formed Voiding Methods Toilet Laboratory Results WBC 4.73 k/cumm (4.4-10.8) 09/04/18 06:25 RBC 4.18 m/cumm (4.50-6.00) L 09/04/18 06:25 Hgb 11.2 g/dL (13.5-17.5) L 09/04/18 06:25 Hct 35.5 % (40.0-50.0) L 09/04/18 06:25 MCV 84.9 fL (80-95) 09/04/18 06:25 MCH 26.8 pg (27.0-33.0) L 09/04/18 06:25 MCHC 31.5 g/dL (32.0-36.0) L 09/04/18 06:25 RDW 15.6 % (11.8-14.1) H 09/04/18 06:25 Plt Count 235 x1000/uL (130-400) 09/04/18 06:25 MPV 9.4 fL (8.0-11.0) 09/04/18 06:25 Immature Gran % 0.2 09/04/18 06:25 Neutrophils % 47.4 09/04/18 06:25 Lymphocytes % 37.6 09/04/18 06:25 Monocytes % 7.4 09/04/18 06:25 Eosinophils % 7.0 09/04/18 06:25 Basophils % 0.4 09/04/18 06:25 Absolute Neutrophils 2.24 k/cumm (1.2-6.7) 09/04/18 06:25 Absolute Lymphocytes 1.78 k/cumm (1.2-3.4) 09/04/18 06:25 Absolute Monocytes 0.35 k/cumm (0.11-0.7) 09/04/18 06:25 Absolute Eosinophils 0.33 k/cumm (0.0-0.7) 09/04/18 06:25 Absolute Basophils 0.02 k/cumm (0.0-0.2) 09/04/18 06:25 Sodium 142 mmol/L (136-145) 09/04/18 06:25 Potassium 4.1 mmol/L (3.5-5.1) 09/04/18 06:25 Chloride 106 mmol/L (98-107) 09/04/18 06:25 Carbon Dioxide 27.7 mmol/L (21.0-32.0) 09/04/18 06:25 Anion Gap 8.3 mmol/L (3-11) 09/04/18 06:25 BUN 22 mg/dL (7-18) H 09/04/18 06:25 Creatinine 0.98 mg/dL (0.70-1.30) 09/04/18 06:25 Estimated GFR/1.73 m2 >= 60.00 (mL/min/1.73m2) 09/04/18 06:25 Glucose 103 mg/dL (70-100) H 09/04/18 06:25 Calcium 8.9 mg/dL (8.5-10.1) 09/04/18 06:25 Magnesium 2.0 mg/dL (1.8-2.4) 09/04/18 06:25 Total Bilirubin 0.2 mg/dL (0.2-1.0) 08/30/18 06:54 AST 22 U/L (15-37) 08/30/18 06:54 ALT 10 U/L (12-78) L 08/30/18 06:54 Alkaline Phosphatase 93 U/L (46-116) 08/30/18 06:54 C-Reactive Protein 2.44 mg/dL (0.0-0.3) H 09/02/18 06:47 Total Protein 6.6 g/dL (6.4-8.2) 08/30/18 06:54 Albumin 3.0 g/dL (3.4-5.0) L 08/30/18 06:54
--- NOTE | 2018-09-06 19:46 | NUR.NOTE ---
Nursing Note: Report received from OWEN Hernandez. the patient is currently in stable condition, walking in hallways with no report of pain or discomfort at this time.
[2018-09-06] MEDS: Gabapentin 600 MG TAB PO (21:36)
[2018-09-07] MEDS: Acetaminophen 500 MG TAB 1000 MG PO ×3 (03:08→20:31)
[2018-09-07] MEDS: oxyCODONE 15 MG TAB 30 MG PO ×5 (03:09→20:31)
[2018-09-07 03:49] VITALS: BP 117/77; PULSE 63; RESP 18; TEMP 36.3; O2SAT 96
[2018-09-07 07:35] VITALS: BP 167/104; PULSE 70; RESP 18; TEMP 36.2; O2SAT 99
[2018-09-07] MEDS: Normal Saline Flush 10 ML SYR 20 ML IVP ×2 (07:36→19:19)
[2018-09-07] MEDS: Pantoprazole 40 MG TABCR PO ×2 (07:36→19:19)
[2018-09-07] MEDS: amLODIPine 5 MG TAB PO (07:36)
[2018-09-07] MEDS: Docusate Sodium 100 MG CAP PO ×2 (07:37→19:19)
[2018-09-07] MEDS: DULoxetine 30 MG CAP PO (07:37)
[2018-09-07] MEDS: Ibuprofen 800 MG TAB PO ×3 (07:37→19:19)
[2018-09-07] MEDS: LORazepam 1 MG TAB PO (09:55)
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
[2018-09-07] MEDS: Normal Saline Flush 10 ML SYR IVP (16:10)
[2018-09-07] MEDS: Gabapentin 300 MG CAP PO (16:10)
[2018-09-07 16:16] VITALS: BP 154/93; PULSE 76; RESP 20; TEMP 36.3; O2SAT 97
--- NOTE | 2018-09-07 18:55 | NUR.NOTE ---
Nursing Note: Report received from OWEN Hernandez, Patient is in stable condition, currently resting in bed with visitors at the bedside, no report of pain or discomfort at this time, the bed is in the low and locked position, side rails up x2, call light within reach.
[2018-09-07] MEDS: Milk of Magnesia 30 ML CUP PO (20:33)
[2018-09-07] MEDS: Gabapentin 600 MG TAB PO (22:07)
[2018-09-08] MEDS: oxyCODONE 15 MG TAB 30 MG PO ×5 (05:05→22:16)
[2018-09-08] MEDS: Acetaminophen 500 MG TAB 1000 MG PO ×2 (05:06→12:59)
[2018-09-08 07:30] VITALS: BP 132/84; PULSE 72; RESP 20; TEMP 36.2; O2SAT 92
--- NOTE | 2018-09-08 07:45 | NUR.NOTE ---
Nursing Note: 0745: RN to round on pt this am. pt reporting double vision and a really bad headache this morning. information given to CC Katarina Fowler RN. pt concerned cymbalta may be causing headache and double vision per MD. will hold cymbalta this am until post am medical meeting.
[2018-09-08] MEDS: Ibuprofen 800 MG TAB PO ×3 (08:19→20:19)
[2018-09-08] MEDS: Pantoprazole 40 MG TABCR PO ×2 (08:19→20:18)
[2018-09-08] MEDS: amLODIPine 5 MG TAB PO (08:19)
[2018-09-08] MEDS: Docusate Sodium 100 MG CAP PO ×2 (08:19→20:19)
[2018-09-08] MEDS: Normal Saline Flush 10 ML SYR 20 ML IVP ×2 (08:20→20:21)
[2018-09-08] MEDS: LORazepam 1 MG TAB PO (09:23)
[2018-09-08] MEDS: DULoxetine 30 MG CAP PO (09:24)
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
[2018-09-08] MEDS: Normal Saline 500 ML 30 ML IV (14:12)
[2018-09-08] MEDS: Gabapentin 300 MG CAP PO (14:12)
--- NOTE | 2018-09-08 15:04 | NUR.NOTE ---
Nursing Note: 1400: pt reporting improvement in vision, still has some double vision and blurriness. pt stating headache remains very severe 9/10 at this time.
[2018-09-08 15:34] VITALS: BP 158/79; PULSE 68; RESP 17; TEMP 36.1; O2SAT 98
[2018-09-08] MEDS: Gabapentin 600 MG TAB PO (21:29)
[2018-09-08] MEDS: Normal Saline Flush 10 ML SYR IVP (21:30)
[2018-09-08 21:56] VITALS: BP 134/90; PULSE 79; RESP 18; TEMP 36.3; O2SAT 96
[2018-09-08 22:57] VITALS: BP 157/105; PULSE 68; RESP 19; TEMP 36.3; O2SAT 98
[2018-09-09] MEDS: oxyCODONE 15 MG TAB 30 MG PO ×5 (03:05→20:17)
--- NOTE | 2018-09-09 04:34 | NUR.NOTE ---
Nursing Note: Patient was medicated for headache with ibuprofen and oxycodone and with good effect. No blurry or double vision reported until this time. Clonidine patch on right upper arm remains inplaced. Wound vac in progress, no further voiced complaints. Needs attended promptly.
[2018-09-09] MEDS: Normal Saline Flush 10 ML SYR IVP ×3 (05:44→21:19)
[2018-09-09 07:35] VITALS: BP 156/102; PULSE 82; RESP 20; TEMP 35.7; O2SAT 97
[2018-09-09] MEDS: DULoxetine 30 MG CAP PO (09:23)
[2018-09-09] MEDS: Ibuprofen 800 MG TAB PO ×3 (09:23→20:09)
[2018-09-09] MEDS: amLODIPine 5 MG TAB PO (09:23)
[2018-09-09] MEDS: Pantoprazole 40 MG TABCR PO ×2 (09:23→20:09)
[2018-09-09] MEDS: LORazepam 1 MG TAB PO (09:24)
[2018-09-09] MEDS: Normal Saline Flush 10 ML SYR 20 ML IVP ×2 (09:24→20:10)
[2018-09-09] MEDS: Docusate Sodium 100 MG CAP PO ×2 (09:24→20:09)
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
[2018-09-09 13:35] LABS: ALT 28 U/L (12-78); AST 24 U/L (15-37); Albumin 3.2 g/dL (3.4-5.0); Alkaline Phosphatase 86 U/L (46-116); Anion Gap 6.9 mmol/L (3-11); BUN 21 mg/dL (7-18); Bilirubin, Total 0.2 mg/dL (0.2-1.0); CO2 29.1 mmol/L (21.0-32.0); Calcium 8.7 mg/dL (8.5-10.1); Chloride 103 mmol/L (98-107); Glucose 118 mg/dL (70-100); Potassium 4.3 mmol/L (3.5-5.1); Sodium 139 mmol/L (136-145)
--- NOTE | 2018-09-09 14:15 | PDOC.CMACT ---
- If Service Date Differs Date of service: 09/09/18 Time of Service: 14:15 Care Management Activity Note Jason remains in a swingbed level of care for IV antibiotics and wound vac therapy. Jason is doing well in the swingbed, he obtains items from the activity cart weekly, and likes to do adult coloring as well as [place]. Jason has family/friends whom visit and are also supportive. Jason is able to go out into the community throughout the day to work on housing. Appointments 09/16/18 @ 2:15 with ID at 5C with Joellen Meier. RCT to transport @ [id number].
[2018-09-09] MEDS: Gabapentin 300 MG CAP PO (14:22)
[2018-09-09] MEDS: Acetaminophen 500 MG TAB 1000 MG PO (15:43)
[2018-09-09 16:00] VITALS: BP 157/93; PULSE 78; RESP 18; TEMP 36.6; O2SAT 97
[2018-09-09 20:18] VITALS: BP 141/86; PULSE 75; RESP 18; TEMP 36.5; O2SAT 97
[2018-09-09] MEDS: Gabapentin 600 MG TAB PO (21:18)
[2018-09-10] MEDS: Acetaminophen 500 MG TAB 1000 MG PO ×2 (00:20→07:47)
[2018-09-10] MEDS: oxyCODONE 15 MG TAB 30 MG PO ×6 (00:21→23:47)
[2018-09-10] MEDS: Normal Saline Flush 10 ML SYR IVP (05:08)
[2018-09-10 07:25] VITALS: BP 165/90; PULSE 71; RESP 18; TEMP 36.5; O2SAT 97
[2018-09-10] MEDS: amLODIPine 5 MG TAB PO (07:47)
[2018-09-10] MEDS: LORazepam 1 MG TAB PO (07:47)
[2018-09-10] MEDS: Docusate Sodium 100 MG CAP PO ×2 (07:47→22:11)
[2018-09-10] MEDS: DULoxetine 30 MG CAP PO (07:47)
[2018-09-10] MEDS: Pantoprazole 40 MG TABCR PO ×2 (07:47→22:11)
[2018-09-10] MEDS: Normal Saline Flush 10 ML SYR 20 ML IVP ×2 (07:48→22:10)
[2018-09-10] MEDS: Ibuprofen 800 MG TAB PO ×3 (07:48→22:11)
[2018-09-10] MEDS: Gabapentin 300 MG CAP PO (14:16)
[2018-09-10] MEDS: Normal Saline 500 ML 30 ML IV (14:55)
[2018-09-10 20:03] VITALS: BP 126/78; PULSE 68; RESP 12; TEMP 35.6; O2SAT 97
[2018-09-10] MEDS: Gabapentin 600 MG TAB PO (22:11)
[2018-09-11 00:17] VITALS: BP 142/88; PULSE 70; RESP 18; TEMP 36.6; O2SAT 95
[2018-09-11] MEDS: oxyCODONE 15 MG TAB 30 MG PO ×5 (05:04→21:32)
[2018-09-11] MEDS: Acetaminophen 500 MG TAB 1000 MG PO ×2 (05:04→09:29)
[2018-09-11] MEDS: Normal Saline Flush 10 ML SYR IVP (05:09)
[2018-09-11] MEDS: amLODIPine 5 MG TAB PO (07:49)
[2018-09-11] MEDS: Normal Saline Flush 10 ML SYR 20 ML IVP ×2 (07:49→20:01)
[2018-09-11] MEDS: LORazepam 1 MG TAB PO (07:49)
[2018-09-11] MEDS: Pantoprazole 40 MG TABCR PO ×2 (07:50→20:00)
[2018-09-11] MEDS: Docusate Sodium 100 MG CAP PO ×2 (07:50→20:00)
[2018-09-11] MEDS: DULoxetine 30 MG CAP PO (07:50)
[2018-09-11] MEDS: Ibuprofen 800 MG TAB PO ×3 (07:50→19:59)
[2018-09-11 08:26] VITALS: BP 136/76; PULSE 72; RESP 16; TEMP 36.9; O2SAT 100
[2018-09-11] MEDS: cloNIDine 0.1 MG PATCH TD (09:54)
[2018-09-11] MEDS: Patch Removal 1 EACH TD (09:55)
--- NOTE | 2018-09-11 09:58 | NUR.NOTE ---
Nursing Note: 0958: clonidine patch removed and placed in narcotic waste container adjacent to the pyxis
[2018-09-11 12:00] LABS: Abs Immature Grans 0.02 k/cumm (0.0-0.09); Absolute Basophil Count 0.03 k/cumm (0.0-0.2); Absolute Eosinophil Count 0.31 k/cumm (0.0-0.7); Absolute Lymphocyte Count 1.72 k/cumm (1.2-3.4); Absolute Monocyte Count 0.45 k/cumm (0.11-0.7); Basophils % 0.4; Eosinophils % 4.1; HGB 11.3 g/dL (13.5-17.5); Immature Grans % 0.3; Lymphocytes % 22.8; Mean Corp. HGB Concentration 32.3 g/dL (32.0-36.0); Mean Corpuscular Hemoglobin 27.4 pg (27.0-33.0); Mean Corpuscular Volume 84.7 fL (80-95); Mean Platelet Volume 9.1 fL (8.0-11.0); Neutrophils % 66.4; Platelet Count 245 x1000/uL (130-400); RBC 4.13 m/cumm (4.50-6.00); RBC Distribution Width 15.2 % (11.8-14.1); White Blood Cell Count 7.53 k/cumm (4.4-10.8)
[2018-09-11 12:11] LABS: ALT 13 U/L (12-78); AST 30 U/L (15-37); Albumin 3.5 g/dL (3.4-5.0); Alkaline Phosphatase 99 U/L (46-116); Anion Gap 7.6 mmol/L (3-11); BUN 26 mg/dL (7-18); Bilirubin, Total 0.3 mg/dL (0.2-1.0); C-Reactive Protein 1.99 mg/dL (0.0-0.3); CO2 31.4 mmol/L (21.0-32.0); CREATININE 1.23 mg/dL (0.70-1.30); Calcium 8.9 mg/dL (8.5-10.1); Chloride 103 mmol/L (98-107); Glucose 122 mg/dL (70-100); Magnesium 1.9 mg/dL (1.8-2.4); Potassium 4.3 mmol/L (3.5-5.1); Sodium 142 mmol/L (136-145); Total Protein 7.5 g/dL (6.4-8.2)
[2018-09-11] MEDS: Gabapentin 300 MG CAP PO (13:43)
[2018-09-11 16:08] VITALS: BP 143/72; PULSE 63; RESP 18; TEMP 36.2; O2SAT 95
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
[2018-09-11] MEDS: Gabapentin 600 MG TAB PO (21:32)
[2018-09-12] MEDS: oxyCODONE 15 MG TAB 30 MG PO ×6 (01:32→22:35)
[2018-09-12 07:45] VITALS: BP 153/95; PULSE 75; RESP 20; TEMP 36.1; O2SAT 97
[2018-09-12] MEDS: LORazepam 1 MG TAB PO (07:49)
[2018-09-12] MEDS: Acetaminophen 500 MG TAB 1000 MG PO (07:49)
[2018-09-12] MEDS: Docusate Sodium 100 MG CAP PO ×2 (07:50→19:40)
[2018-09-12] MEDS: Ibuprofen 800 MG TAB PO ×3 (07:50→19:40)
[2018-09-12] MEDS: Pantoprazole 40 MG TABCR PO ×2 (07:50→19:41)
[2018-09-12] MEDS: Normal Saline Flush 10 ML SYR 20 ML IVP ×2 (07:50→19:42)
[2018-09-12] MEDS: amLODIPine 5 MG TAB PO (07:50)
[2018-09-12] MEDS: DULoxetine 30 MG CAP PO (07:50)
--- NOTE | 2018-09-12 10:01 | PGE_ITS ---
Date of Service Date of service: 09/12/18 Time of Service: 09:57 Assessment and Plan (1) Psoas abscess, left: Current visit: No Status: Acute Jason is a 43-year-old who had a known psoas abscess with soft tissue infection. His CRP continues to trend down but it is not going to normal. It seems to hover around the 1.5-2.5 range. He still complains of pain deep within the groin which is concerning for residual and persistent infection of the psoas tendon. Previous MRI did show significant resolution of the infection within the left leg except for fluid still around the psoas tendon extending up and down the entire length of the psoas tendon. His wound is making good improvements. He continues on IV antibiotics. He is able to ambulate without significant increase in pain except for certain motions which would suggest the hip is not involved. However, I am still concerned about the psoas tendon and therefore do think a repeat MRI is warranted to evaluate for the fluid collection around the psoas tendon and compared to the previous. I will also recheck a CRP this week. He is to meet with [facility] infectious disease on . We will continue with wound VAC changes. Subjective Interval history since last seen: Jason had difficulty with the wound VAC last night. It was malfunctioning and eventually had to be turned off. He denies any fevers or chills. He denies any chest pain or shortness of breath. He reports his mood to be much better and is very happy with the Cymbalta. He is having less ups and downs with his anxiety and depression and overall feels better about the current treatment plan and course. He does report continued pain deep within the pelvis. The pain around the superficial aspect the hip seems to be improving and he has continued to be very mobile without any limitations in his mobility. Exam Narrative Exam Narrative: No acute distress. Alert and oriented x3. Laying in the bed and agreeable to examination and wound VAC change. Very pleasant today, cooperative, and interactive. Evaluation of the left hip shows no significant pain to gentle internal and external rotation. However, if I force his hip into internal rotation does have pain which is deep within the pelvis. He has some sensitivity over the left hip but it is much better than it was before. The wound VAC to is removed and it does demonstrate significant granulation within the wound bed. The depth of the wound continues to decrease. There is a small area of depth in the medial aspect of the wound which is well adherent. This does not represent any tunneling but simply the medial border of the rectus for Dominick. There is no gross purulence. There is no expressible purulence. There is no significant drainage. A new wound VAC was applied. Objective Objective Clinical Data: Abnormal lab results 09/11/18 09/11/18 Range/Units 11:45 11:45 RBC 4.13 L (4.50-6.00) m/cumm Hgb 11.3 L (13.5-17.5) g/dL Hct 35.0 L (40.0-50.0) % RDW 15.2 H (11.8-14.1) % BUN 26 H (7-18) mg/dL Glucose 122 H (70-100) mg/dL C-Reactive Protein 1.99 H (0.0-0.3) mg/dL Vital Signs Temperature 36.1 C L 09/12/18 07:45 Temperature Source Tympanic 09/12/18 07:45 Pulse 75 09/12/18 07:45 Pulse Rhythm Regular 09/11/18 19:50 Respiratory Rate 20 09/12/18 07:45 Respiratory Effort Non-Labored 09/11/18 19:50 Respiratory Depth Normal 09/11/18 19:50 Respiratory Pattern Normal 09/11/18 19:50 Blood Pressure 153/95 H 09/12/18 07:45 Pulse Oximetry 97 09/12/18 07:45 Oxygen Delivery Method Room Air 09/12/18 07:45 Oxygen Flow Rate 0 09/12/18 07:45 Pain Level 7 09/12/18 09:47 Comment 09/11/18 08:26 Intake & Output 09/11/18 09/11/18 09/12/18 11:59 23:59 11:59 Intake Total 670 / 1560 890 / 1560 1030 / 1030 Balance 670 / 1560 890 / 1560 1030 / 1030 Intake: IV 100 / 300 200 / 300 100 / 100 Oral 570 / 1260 690 / 1260 930 / 930 Other: Urine Color Yellow Urine Appearance Clear Urine Odor Normal Comment VOIDS INDEP AD DARIUS IN BR Voiding Methods Toilet Toilet Toilet Laboratory Results WBC 7.53 k/cumm (4.4-10.8) 09/11/18 11:45 RBC 4.13 m/cumm (4.50-6.00) L 09/11/18 11:45 Hgb 11.3 g/dL (13.5-17.5) L 09/11/18 11:45 Hct 35.0 % (40.0-50.0) L 09/11/18 11:45 MCV 84.7 fL (80-95) 09/11/18 11:45 MCH 27.4 pg (27.0-33.0) 09/11/18 11:45 MCHC 32.3 g/dL (32.0-36.0) 09/11/18 11:45 RDW 15.2 % (11.8-14.1) H 09/11/18 11:45 Plt Count 245 x1000/uL (130-400) 09/11/18 11:45 MPV 9.1 fL (8.0-11.0) 09/11/18 11:45 Immature Gran % 0.3 09/11/18 11:45 Neutrophils % 66.4 09/11/18 11:45 Lymphocytes % 22.8 09/11/18 11:45 Monocytes % 6.0 09/11/18 11:45 Eosinophils % 4.1 09/11/18 11:45 Basophils % 0.4 09/11/18 11:45 Absolute Neutrophils 5.00 k/cumm (1.2-6.7) 09/11/18 11:45 Absolute Lymphocytes 1.72 k/cumm (1.2-3.4) 09/11/18 11:45 Absolute Monocytes 0.45 k/cumm (0.11-0.7) 09/11/18 11:45 Absolute Eosinophils 0.31 k/cumm (0.0-0.7) 09/11/18 11:45 Absolute Basophils 0.03 k/cumm (0.0-0.2) 09/11/18 11:45 Sodium 142 mmol/L (136-145) 09/11/18 11:45 Potassium 4.3 mmol/L (3.5-5.1) 09/11/18 11:45 Chloride 103 mmol/L (98-107) 09/11/18 11:45 Carbon Dioxide 31.4 mmol/L (21.0-32.0) 09/11/18 11:45 Anion Gap 7.6 mmol/L (3-11) 09/11/18 11:45 BUN 26 mg/dL (7-18) H 09/11/18 11:45 Creatinine 1.23 mg/dL (0.70-1.30) 09/11/18 11:45 Estimated GFR/1.73 m2 >= 60.00 (mL/min/1.73m2) 09/11/18 11:45 Glucose 122 mg/dL (70-100) H 09/11/18 11:45 Calcium 8.9 mg/dL (8.5-10.1) 09/11/18 11:45 Magnesium 1.9 mg/dL (1.8-2.4) 09/11/18 11:45 Total Bilirubin 0.3 mg/dL (0.2-1.0) 09/11/18 11:45 AST 30 U/L (15-37) 09/11/18 11:45 ALT 13 U/L (12-78) 09/11/18 11:45 Alkaline Phosphatase 99 U/L (46-116) 09/11/18 11:45 C-Reactive Protein 1.99 mg/dL (0.0-0.3) H 09/11/18 11:45 Total Protein 7.5 g/dL (6.4-8.2) 09/11/18 11:45 Albumin 3.5 g/dL (3.4-5.0) 09/11/18 11:45
[2018-09-12] MEDS: Gabapentin 300 MG CAP PO (14:19)
[2018-09-12 17:20] VITALS: BP 135/87; PULSE 71; RESP 18; TEMP 36.1; O2SAT 98
[2018-09-12] MEDS: Gabapentin 600 MG TAB PO (21:25)
[2018-09-12] MEDS: Normal Saline Flush 10 ML SYR IVP (21:30)
[2018-09-13] MEDS: oxyCODONE 15 MG TAB 30 MG PO ×5 (03:54→20:19)
[2018-09-13] MEDS: Normal Saline Flush 10 ML SYR IVP ×3 (05:31→21:31)
[2018-09-13 07:09] LABS: Abs Immature Grans 0.01 k/cumm (0.0-0.09); Absolute Basophil Count 0.02 k/cumm (0.0-0.2); Absolute Eosinophil Count 0.28 k/cumm (0.0-0.7); Absolute Lymphocyte Count 1.69 k/cumm (1.2-3.4); Absolute Monocyte Count 0.39 k/cumm (0.11-0.7); Absolute Neutrophil Count 3.13 k/cumm (1.2-6.7); Basophils % 0.4; Eosinophils % 5.1; HCT 35.5 % (40.0-50.0); HGB 11.2 g/dL (13.5-17.5); Immature Grans % 0.2; Lymphocytes % 30.6; Mean Corp. HGB Concentration 31.5 g/dL (32.0-36.0); Mean Corpuscular Volume 85.5 fL (80-95); Mean Platelet Volume 9.3 fL (8.0-11.0); Monocytes % 7.1; Neutrophils % 56.6; Platelet Count 225 x1000/uL (130-400); RBC 4.15 m/cumm (4.50-6.00); RBC Distribution Width 15.1 % (11.8-14.1); White Blood Cell Count 5.52 k/cumm (4.4-10.8)
[2018-09-13 07:25] LABS: ALT 10 U/L (12-78); AST 26 U/L (15-37); Albumin 3.2 g/dL (3.4-5.0); Alkaline Phosphatase 92 U/L (46-116); Anion Gap 8.2 mmol/L (3-11); BUN 22 mg/dL (7-18); Bilirubin, Total 0.3 mg/dL (0.2-1.0); CO2 28.8 mmol/L (21.0-32.0); CREATININE 1.01 mg/dL (0.70-1.30); Calcium 8.8 mg/dL (8.5-10.1); Chloride 104 mmol/L (98-107); Glucose 115 mg/dL (70-100); Potassium 3.9 mmol/L (3.5-5.1); Sodium 141 mmol/L (136-145); Total Protein 7.2 g/dL (6.4-8.2)
[2018-09-13 07:39] LABS: C-Reactive Protein 2.31 mg/dL (0.0-0.3)
[2018-09-13] MEDS: Pantoprazole 40 MG TABCR PO ×2 (08:04→20:19)
[2018-09-13] MEDS: DULoxetine 30 MG CAP PO (08:04)
[2018-09-13] MEDS: Docusate Sodium 100 MG CAP PO ×2 (08:04→20:18)
[2018-09-13] MEDS: Normal Saline Flush 10 ML SYR 20 ML IVP ×2 (08:04→20:19)
[2018-09-13] MEDS: amLODIPine 5 MG TAB PO (08:04)
[2018-09-13] MEDS: Ibuprofen 800 MG TAB PO ×3 (08:05→20:18)
[2018-09-13 08:14] VITALS: BP 158/95; PULSE 84; RESP 20; TEMP 36.2; O2SAT 96
--- NOTE | 2018-09-13 10:51 | NUR.NOTE ---
Nursing Note: 1040 Pt IV wrapped with kerlix and taped prior to his swing bed pass outing.
[2018-09-13] MEDS: Gabapentin 300 MG CAP PO (14:14)
[2018-09-13 16:16] VITALS: BP 160/79; PULSE 71; RESP 18; TEMP 36.1; O2SAT 97
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
[2018-09-13] MEDS: Gabapentin 600 MG TAB PO (21:30)
[2018-09-14 00:02] VITALS: BP 158/80; PULSE 68; RESP 19; TEMP 36.3; O2SAT 99
[2018-09-14] MEDS: oxyCODONE 15 MG TAB 30 MG PO ×6 (00:35→21:41)
[2018-09-14] MEDS: Normal Saline Flush 10 ML SYR IVP ×3 (05:06→21:54)
[2018-09-14 07:40] VITALS: BP 126/71; PULSE 61; RESP 20; TEMP 36.9; O2SAT 97
[2018-09-14] MEDS: amLODIPine 5 MG TAB PO (08:31)
[2018-09-14] MEDS: Pantoprazole 40 MG TABCR PO ×2 (08:32→20:15)
[2018-09-14] MEDS: DULoxetine 30 MG CAP PO (08:32)
[2018-09-14] MEDS: Docusate Sodium 100 MG CAP PO ×2 (08:32→20:15)
[2018-09-14] MEDS: Ibuprofen 800 MG TAB PO ×3 (08:32→20:15)
[2018-09-14] MEDS: Normal Saline Flush 10 ML SYR 20 ML IVP ×2 (08:33→20:16)
[2018-09-14] MEDS: Acetaminophen 500 MG TAB 1000 MG PO (11:39)
[2018-09-14] MEDS: LORazepam 1 MG TAB PO (11:39)
[2018-09-14] MEDS: Gadoterate meglumine 20 ML VIAL IVP (12:48)
[2018-09-14] MEDS: Gabapentin 300 MG CAP PO (13:16)
--- NOTE | 2018-09-14 13:23 | DI.MRI_ITS ---
SYMPTON/DIAGNOSIS: F/U LT ILEOPSOAS ABSCESS LEFT HIP AND PELVIS MRI: Pre and post contrast MRI of the left hip and pelvis was performed. Comparison examination is 08/30/18. There is again seen a peripherally enhancing fluid collection traversing along the left ileopsoas muscle inferiorly to the level of the lesser trochanter. The fluid collection appears unchanged compared to the prior examination. There is again seen edema in the soft tissues adjacent to the lesser trochanter near the insertion site of the ileopsoas muscle. No new fluid collections are appreciated. Marrow signal is within normal limits. No MRI findings to suggest osteomyelitis are appreciated. Post surgical changes are seen in the soft tissues about the left hip. There is minimal hyperintense signal seen in the left iliacus muscle superiorly. Otherwise there does appear to be normal in the muscle. No soft tissue masses are appreciated. There are mildly enlarged lymph nodes in the iliac and inguinal chain. These are likely reactive. There is artifact in the lumbar spine consistent with the patient's prior surgery. Artifact is also seen in the left inguinal region consistent with surgical clips. IMPRESSION: No significant change in size of the abscess adjacent to the left ileopsoas muscle. Comparison is made with examination from 08/30/18.
[2018-09-14 16:02] VITALS: BP 137/89; PULSE 70; RESP 19; TEMP 36.3; O2SAT 96
[2018-09-14] MEDS: Gabapentin 600 MG TAB PO (21:53)
[2018-09-15] MEDS: oxyCODONE 15 MG TAB 30 MG PO ×6 (01:38→22:05)
[2018-09-15] MEDS: Normal Saline Flush 10 ML SYR IVP ×2 (05:51→14:12)
[2018-09-15 08:47] VITALS: BP 155/97; PULSE 78; RESP 20; TEMP 36.5; O2SAT 98
[2018-09-15] MEDS: Docusate Sodium 100 MG CAP PO ×2 (08:55→19:46)
[2018-09-15] MEDS: Ibuprofen 800 MG TAB PO ×3 (08:55→19:46)
[2018-09-15] MEDS: DULoxetine 30 MG CAP PO (08:55)
[2018-09-15] MEDS: Acetaminophen 500 MG TAB 1000 MG PO ×2 (08:55→17:55)
[2018-09-15] MEDS: amLODIPine 5 MG TAB PO (08:55)
[2018-09-15] MEDS: Pantoprazole 40 MG TABCR PO ×2 (08:55→19:46)
[2018-09-15] MEDS: Normal Saline Flush 10 ML SYR 20 ML IVP ×2 (08:56→19:46)
--- NOTE | 2018-09-15 11:05 | PDOC.CMACT ---
- If Service Date Differs Date of service: 09/15/18 Time of Service: 11:05 Care Management Activity Note Jason remains in a swingbed level of care for IV antibiotics and wound vac therapy. Jason enjoys doing [employer] books and watching TV in his room. Jason also enjoys adult coloring, and was coloring in the room with his friend Abhi today. Jason states that he received a call from [facility] in regards to a general surgery appt tomorrow at 1330. CM arranged for RCT transport at the earlier time. Appointments 09/16/18 @ 1:15 with general Surgery 4L. RCT to transport at 1145. 09/16/18 @ 2:15/ with ID at 5C with Joellen Meier. RCT to transport @ 1145
--- NOTE | 2018-09-15 11:51 | CMACTNOTE_ITS ---
- If Service Date Differs Date of service: 09/15/18 Time of Service: 11:05 Care Management Activity Note Jason remains in a swingbed level of care for IV antibiotics and wound vac therapy. Jason enjoys doing [employer] books and watching TV in his room. Jason also enjoys adult coloring, and was coloring in the room with his friend Abhi today. Jason states that he received a call from [facility] in regards to a general surgery appt tomorrow at 1330. CM arranged for RCT transport at the earlier time. Appointments 09/16/18 @ 1:15 with general Surgery 4L. RCT to transport at 1145. 09/16/18 @ 2:15/ with ID at 5C with Joellen Meier. RCT to transport @ 1145
[2018-09-15] MEDS: Gabapentin 300 MG CAP PO (14:11)
[2018-09-15 16:23] VITALS: BP 161/77; PULSE 74; RESP 20; TEMP 36.7; O2SAT 98
[2018-09-15] MEDS: Gabapentin 600 MG TAB PO (21:18)
[2018-09-16] MEDS: oxyCODONE 15 MG TAB 30 MG PO ×5 (02:24→22:08)
[2018-09-16] MEDS: Pantoprazole 40 MG TABCR PO ×2 (06:46→22:08)
[2018-09-16 07:33] VITALS: BP 135/76; PULSE 81; RESP 20; TEMP 36.9; O2SAT 98
[2018-09-16] MEDS: amLODIPine 5 MG TAB PO (07:38)
[2018-09-16] MEDS: Ibuprofen 800 MG TAB PO ×3 (07:38→22:09)
[2018-09-16] MEDS: DULoxetine 30 MG CAP PO (07:39)
[2018-09-16] MEDS: Docusate Sodium 100 MG CAP PO ×2 (07:39→22:08)
[2018-09-16] MEDS: Normal Saline Flush 10 ML SYR 20 ML IVP ×2 (07:39→22:09)
[2018-09-16] MEDS: LORazepam 1 MG TAB PO (11:11)
[2018-09-16] MEDS: Acetaminophen 500 MG TAB 1000 MG PO (11:11)
[2018-09-16] MEDS: Gabapentin 300 MG CAP PO (17:46)
[2018-09-16] MEDS: Gabapentin 600 MG TAB PO (22:09)
[2018-09-16] MEDS: Normal Saline 500 ML 20 ML IV (22:52)
[2018-09-17 00:02] VITALS: BP 135/82; PULSE 64; RESP 18; TEMP 36.4; O2SAT 97
[2018-09-17] MEDS: LORazepam 1 MG TAB PO ×3 (00:04→22:13)
[2018-09-17] MEDS: Acetaminophen 500 MG TAB 1000 MG PO ×4 (00:05→22:13)
[2018-09-17] MEDS: oxyCODONE 15 MG TAB 30 MG PO ×5 (06:00→22:13)
[2018-09-17 07:39] VITALS: BP 135/85; PULSE 64; RESP 20; TEMP 36.1; O2SAT 97
[2018-09-17] MEDS: Pantoprazole 40 MG TABCR PO ×2 (07:56→19:52)
[2018-09-17] MEDS: DULoxetine 30 MG CAP PO (07:56)
[2018-09-17] MEDS: Ibuprofen 800 MG TAB PO ×3 (07:56→19:53)
[2018-09-17] MEDS: Docusate Sodium 100 MG CAP PO ×2 (07:56→19:52)
[2018-09-17] MEDS: Normal Saline Flush 10 ML SYR 20 ML IVP ×2 (07:57→19:52)
[2018-09-17] MEDS: amLODIPine 5 MG TAB PO (07:57)
[2018-09-17 10:12] VITALS: BP 150/86; PULSE 74; RESP 18; TEMP 36.3; O2SAT 97
[2018-09-17] MEDS: Gabapentin 300 MG CAP PO (14:04)
[2018-09-17 16:15] VITALS: BP 153/102; PULSE 79; RESP 20; TEMP 36.1; O2SAT 98
[2018-09-17] MEDS: Lidocaine 5% Patch 1 PATCH TP (18:15)
[2018-09-17] MEDS: Gabapentin 300 MG CAP 600 MG PO (19:52)
[2018-09-17 23:54] VITALS: BP 149/93; PULSE 87; RESP 19; TEMP 36.8; O2SAT 98
[2018-09-18] MEDS: oxyCODONE 15 MG TAB 30 MG PO ×7 (02:45→23:07)
[2018-09-18] MEDS: Diazepam 5 MG TAB PO ×2 (02:45→23:07)
[2018-09-18] MEDS: Normal Saline Flush 10 ML SYR IVP ×2 (06:56→14:23)
[2018-09-18] MEDS: Patch Removal 1 EACH TP (06:56)
[2018-09-18 07:45] VITALS: BP 157/99; PULSE 83; RESP 20; TEMP 35.9; O2SAT 97
[2018-09-18] MEDS: Pantoprazole 40 MG TABCR PO ×2 (08:14→20:39)
[2018-09-18] MEDS: amLODIPine 5 MG TAB PO (08:14)
[2018-09-18] MEDS: DULoxetine 30 MG CAP PO (08:14)
[2018-09-18] MEDS: Ibuprofen 800 MG TAB PO ×3 (08:14→20:39)
[2018-09-18] MEDS: Gabapentin 300 MG CAP 600 MG PO ×3 (08:14→20:38)
[2018-09-18] MEDS: Docusate Sodium 100 MG CAP PO ×2 (08:14→20:38)
[2018-09-18] MEDS: cloNIDine 0.1 MG PATCH TD (09:33)
[2018-09-18] MEDS: Patch Removal 1 EACH TD (09:36)
[2018-09-18] MEDS: Normal Saline Flush 10 ML SYR 20 ML IVP ×2 (11:01→20:41)
[2018-09-18] MEDS: Acetaminophen 500 MG TAB 1000 MG PO ×2 (15:04→23:07)
[2018-09-18 15:42] VITALS: BP 120/60; PULSE 69; RESP 20; TEMP 36.3; O2SAT 98
[2018-09-18] MEDS: Lidocaine 5% Patch 1 PATCH TP (18:19)
[2018-09-18 20:40] VITALS: BP 123/79; PULSE 72; RESP 18; TEMP 36.6; O2SAT 97
[2018-09-18 23:30] VITALS: BP 135/86; PULSE 76; RESP 16; TEMP 36.6; O2SAT 96
[2018-09-19] MEDS: oxyCODONE 15 MG TAB 30 MG PO ×5 (03:25→20:20)
[2018-09-19] MEDS: Patch Removal 1 EACH TP (06:30)
[2018-09-19] MEDS: Normal Saline 500 ML 30 ML IV (06:45)
[2018-09-19] MEDS: Normal Saline Flush 10 ML SYR IVP (06:46)
[2018-09-19] MEDS: Gabapentin 300 MG CAP 600 MG PO ×3 (07:31→20:06)
[2018-09-19] MEDS: Ibuprofen 800 MG TAB PO ×3 (07:31→20:07)
[2018-09-19] MEDS: DULoxetine 30 MG CAP PO (07:31)
[2018-09-19] MEDS: amLODIPine 5 MG TAB PO (07:31)
[2018-09-19] MEDS: Docusate Sodium 100 MG CAP PO ×2 (07:31→20:07)
[2018-09-19] MEDS: Pantoprazole 40 MG TABCR PO ×2 (07:32→20:06)
[2018-09-19 08:00] VITALS: BP 173/100; PULSE 75; RESP 18; TEMP 36.7; O2SAT 98
[2018-09-19] MEDS: Normal Saline Flush 10 ML SYR 20 ML IVP ×2 (13:45→20:07)
[2018-09-19] MEDS: Acetaminophen 500 MG TAB 1000 MG PO (14:58)
[2018-09-19 16:00] VITALS: BP 131/78; PULSE 81; RESP 18; TEMP 36.7; O2SAT 98
[2018-09-19] MEDS: Lidocaine 5% Patch 1 PATCH TP (17:57)
[2018-09-20] MEDS: oxyCODONE 15 MG TAB 30 MG PO ×5 (02:17→19:48)
[2018-09-20] MEDS: Patch Removal 1 EACH TP (05:39)
[2018-09-20 07:11] LABS: Absolute Basophil Count 0.02 k/cumm (0.0-0.2); Absolute Eosinophil Count 0.31 k/cumm (0.0-0.7); Absolute Lymphocyte Count 1.59 k/cumm (1.2-3.4); Absolute Monocyte Count 0.42 k/cumm (0.11-0.7); Absolute Neutrophil Count 2.67 k/cumm (1.2-6.7); Basophils % 0.4; Eosinophils % 6.2; HCT 34.9 % (40.0-50.0); Lymphocytes % 31.7; Mean Corp. HGB Concentration 31.5 g/dL (32.0-36.0); Mean Corpuscular Hemoglobin 26.6 pg (27.0-33.0); Mean Corpuscular Volume 84.5 fL (80-95); Mean Platelet Volume 9.3 fL (8.0-11.0); Monocytes % 8.4; Neutrophils % 53.3; Platelet Count 230 x1000/uL (130-400); RBC 4.13 m/cumm (4.50-6.00); RBC Distribution Width 14.7 % (11.8-14.1); White Blood Cell Count 5.01 k/cumm (4.4-10.8)
[2018-09-20 07:25] VITALS: BP 149/92; PULSE 68; RESP 20; TEMP 36.4; O2SAT 97
[2018-09-20 07:27] LABS: ALT 11 U/L (12-78); AST 21 U/L (15-37); Albumin 3.1 g/dL (3.4-5.0); Alkaline Phosphatase 105 U/L (46-116); Anion Gap 8.2 mmol/L (3-11); BUN 18 mg/dL (7-18); Bilirubin, Total 0.2 mg/dL (0.2-1.0); CO2 28.8 mmol/L (21.0-32.0); CREATININE 1.04 mg/dL (0.70-1.30); Calcium 8.5 mg/dL (8.5-10.1); Chloride 105 mmol/L (98-107); Glucose 107 mg/dL (70-100); Potassium 4.1 mmol/L (3.5-5.1); Sodium 142 mmol/L (136-145); Total Protein 7.1 g/dL (6.4-8.2)
[2018-09-20] MEDS: Normal Saline Flush 10 ML SYR 20 ML IVP ×2 (09:39→19:48)
[2018-09-20] MEDS: amLODIPine 5 MG TAB PO (09:39)
[2018-09-20] MEDS: Ibuprofen 800 MG TAB PO ×3 (09:39→19:48)
[2018-09-20] MEDS: Docusate Sodium 100 MG CAP PO ×2 (09:40→19:48)
[2018-09-20] MEDS: Pantoprazole 40 MG TABCR PO ×2 (09:40→19:48)
[2018-09-20] MEDS: DULoxetine 30 MG CAP PO (09:40)
[2018-09-20] MEDS: Gabapentin 300 MG CAP 600 MG PO ×3 (09:40→19:48)
[2018-09-20 16:04] VITALS: BP 142/86; PULSE 67; RESP 18; TEMP 36.2; O2SAT 96
[2018-09-20] MEDS: Lidocaine 5% Patch 1 PATCH TP (18:41)
[2018-09-20] MEDS: Milk of Magnesia 30 ML CUP PO (19:51)
[2018-09-21] MEDS: oxyCODONE 15 MG TAB 30 MG PO ×6 (00:01→21:52)
[2018-09-21] MEDS: Acetaminophen 500 MG TAB 1000 MG PO (03:59)
--- NOTE | 2018-09-21 04:51 | NUR.NOTE ---
Nursing Note: Pt. leaving floor to go on morning walk. CC notified.
--- NOTE | 2018-09-21 05:30 | NUR.NOTE ---
Nursing Note: Pt. returned to unit in stable condition.
[2018-09-21] MEDS: Patch Removal 1 EACH TP (05:49)
[2018-09-21 07:45] VITALS: BP 159/89; PULSE 70; RESP 20; TEMP 36.1; O2SAT 98
[2018-09-21] MEDS: Ibuprofen 800 MG TAB PO ×3 (08:58→20:03)
[2018-09-21] MEDS: amLODIPine 5 MG TAB PO (08:58)
[2018-09-21] MEDS: Gabapentin 300 MG CAP 600 MG PO ×3 (08:58→20:03)
[2018-09-21] MEDS: Docusate Sodium 100 MG CAP PO ×2 (08:58→20:03)
[2018-09-21] MEDS: Pantoprazole 40 MG TABCR PO ×2 (08:58→20:03)
[2018-09-21] MEDS: DULoxetine 30 MG CAP PO (08:58)
[2018-09-21] MEDS: Normal Saline Flush 10 ML SYR 20 ML IVP ×2 (08:59→20:03)
[2018-09-21] MEDS: LORazepam 1 MG TAB PO (09:05)
[2018-09-21 15:48] VITALS: BP 146/76; PULSE 73; RESP 18; TEMP 36.6; O2SAT 95
[2018-09-21] MEDS: Lidocaine 5% Patch 1 PATCH TP (18:04)
--- NOTE | 2018-09-21 19:10 | NUR.NOTE ---
Nursing Note: Report received from OWEN Johns. Patient is in stable condition, currently sitting up in bed with a visitor at the bedside, no needs at this time, the bed is in the low and locked position, side rails up x2, call light within reach.
[2018-09-22] MEDS: Acetaminophen 500 MG TAB 1000 MG PO ×2 (02:09→16:18)
[2018-09-22] MEDS: oxyCODONE 15 MG TAB 30 MG PO ×6 (02:09→22:05)
[2018-09-22] MEDS: Patch Removal 1 EACH TP (05:33)
--- NOTE | 2018-09-22 07:24 | PGE_ITS ---
Date of Service Date of service: 09/20/18 Time of Service: 16:19 Assessment and Plan (1) Psoas abscess, left: Current visit: No Status: Acute Jasno is a 43-year-old who has a known infection of his left psoas tendon and surrounding soft tissues. This is been very difficult to treat infection. He has required multiple debridements including one at [facility]. He was on a wound VAC but now is on daily dressing changes with Aquacel Ag. I do not see any concerning findings about the wound. He does have a more soupy nature to it but this is most likely due the wound VAC been removed. A lot of this exudative material and serous fluid was have been withdrawn with the wound VAC but instead is going to sit on the wound. The Aquacel Ag is helpful in helping absorb this material. His CRP is plateaued which is somewhat concerning. However, I do not see any reason to change course at this time. I will default to [facility] infectious disease and general surgery who I consulted for help with this case given his complexities and recalcitrant nature. Continue with daily dressing changes. Continue with cefazolin 3 times a day. Subjective Interval history since last seen: Jason continues to have some pain about the left hip. This pain is more deep than anything. He is concerned about some increased swelling about the left hip. The wound that was removed by [facility] surgery on and he also had a visit with infectious disease. I was able to review those notes. Both parties agree with continuing the current treatment. An MRI was repeated before he had his visit. That MRI was reviewed by the musculoskeletal radiologist at [facility] who did not agree that it was larger for any intervention to drain. He denies any fevers or chills. No new symptoms. He reports a much better mood on the Cymbalta and he has not had any other significant vision issues. Exam Narrative Exam Narrative: Jason is lying supine in the bed. He appears comfortable. He is able to move and reposition on his own. Evaluation of the left hip shows a cole wound. There is a granulation tissue base. The dressing is removed. There is no expressible fluid or purulence. There is no surrounding erythema. There is some exudate seen within the wound with very minimal fibrinous discharge or material. There is tenderness to palpation throughout. He does tolerate internal and external rotation of the hip without any significant increase in pain. The wound appears to be cole getting smaller. There is a small cleft over the medial aspect of the wound which is the natural tissue plane between the sartorius and rectus musculature. Objective Objective Clinical Data: Vital Signs Temperature 36.6 C 09/21/18 15:48 Temperature Source Tympanic 09/21/18 15:48 Pulse 73 09/21/18 15:48 Pulse Rhythm Regular 09/21/18 20:44 Respiratory Rate 18 09/21/18 15:48 Respiratory Effort Non-Labored 09/21/18 20:44 Respiratory Depth Normal 09/21/18 20:44 Respiratory Pattern Normal 09/21/18 20:44 Blood Pressure 146/76 H 09/21/18 15:48 Pulse Oximetry 95 09/21/18 15:48 Oxygen Delivery Method Room Air 09/21/18 15:48 Oxygen Flow Rate 0 09/21/18 15:48 Pain Level 8 09/22/18 06:17 Comment 09/12/18 17:20 Intake & Output 09/21/18 09/21/18 09/22/18 11:59 23:59 11:59 Intake Total 100 / 866.667 766.667 / 866.667 100 / 100 Balance 100 / 866.667 766.667 / 866.667 100 / 100 Intake: IV 100 / 386.667 286.667 / 386.667 100 / 100 Oral 480 / 480 Other: Urine Appearance Clear Clear Comment Pt voids ind. voiding independently Laboratory Results WBC 5.01 k/cumm (4.4-10.8) 09/20/18 06:38 RBC 4.13 m/cumm (4.50-6.00) L 09/20/18 06:38 Hgb 11.0 g/dL (13.5-17.5) L 09/20/18 06:38 Hct 34.9 % (40.0-50.0) L 09/20/18 06:38 MCV 84.5 fL (80-95) 09/20/18 06:38 MCH 26.6 pg (27.0-33.0) L 09/20/18 06:38 MCHC 31.5 g/dL (32.0-36.0) L 09/20/18 06:38 RDW 14.7 % (11.8-14.1) H 09/20/18 06:38 Plt Count 230 x1000/uL (130-400) 09/20/18 06:38 MPV 9.3 fL (8.0-11.0) 09/20/18 06:38 Immature Gran % 0.0 09/20/18 06:38 Neutrophils % 53.3 09/20/18 06:38 Lymphocytes % 31.7 09/20/18 06:38 Monocytes % 8.4 09/20/18 06:38 Eosinophils % 6.2 09/20/18 06:38 Basophils % 0.4 09/20/18 06:38 Absolute Neutrophils 2.67 k/cumm (1.2-6.7) 09/20/18 06:38 Absolute Lymphocytes 1.59 k/cumm (1.2-3.4) 09/20/18 06:38 Absolute Monocytes 0.42 k/cumm (0.11-0.7) 09/20/18 06:38 Absolute Eosinophils 0.31 k/cumm (0.0-0.7) 09/20/18 06:38 Absolute Basophils 0.02 k/cumm (0.0-0.2) 09/20/18 06:38 Sodium 142 mmol/L (136-145) 09/20/18 06:38 Potassium 4.1 mmol/L (3.5-5.1) 09/20/18 06:38 Chloride 105 mmol/L (98-107) 09/20/18 06:38 Carbon Dioxide 28.8 mmol/L (21.0-32.0) 09/20/18 06:38 Anion Gap 8.2 mmol/L (3-11) 09/20/18 06:38 BUN 18 mg/dL (7-18) 09/20/18 06:38 Creatinine 1.04 mg/dL (0.70-1.30) 09/20/18 06:38 Estimated GFR/1.73 m2 >= 60.00 (mL/min/1.73m2) 09/20/18 06:38 Glucose 107 mg/dL (70-100) H 09/20/18 06:38 Calcium 8.5 mg/dL (8.5-10.1) 09/20/18 06:38 Magnesium 1.9 mg/dL (1.8-2.4) 09/11/18 11:45 Total Bilirubin 0.2 mg/dL (0.2-1.0) 09/20/18 06:38 AST 21 U/L (15-37) 09/20/18 06:38 ALT 11 U/L (12-78) L 09/20/18 06:38 Alkaline Phosphatase 105 U/L (46-116) 09/20/18 06:38 C-Reactive Protein 2.10 mg/dL (0.0-0.3) H 09/20/18 06:38 Total Protein 7.1 g/dL (6.4-8.2) 09/20/18 06:38 Albumin 3.1 g/dL (3.4-5.0) L 09/20/18 06:38
[2018-09-22] MEDS: Gabapentin 300 MG CAP 600 MG PO ×3 (07:38→20:06)
[2018-09-22] MEDS: DULoxetine 30 MG CAP PO (07:38)
[2018-09-22] MEDS: Ibuprofen 800 MG TAB PO ×3 (07:38→20:05)
[2018-09-22] MEDS: Pantoprazole 40 MG TABCR PO ×2 (07:38→20:06)
[2018-09-22] MEDS: Docusate Sodium 100 MG CAP PO ×2 (07:38→20:05)
[2018-09-22] MEDS: amLODIPine 5 MG TAB PO (07:38)
[2018-09-22] MEDS: Normal Saline Flush 10 ML SYR 20 ML IVP ×2 (07:39→20:05)
[2018-09-22 07:40] VITALS: BP 135/80; PULSE 68; RESP 18; TEMP 36.6; O2SAT 97
[2018-09-22] MEDS: LORazepam 1 MG TAB PO ×2 (07:46→20:05)
[2018-09-22] MEDS: Milk of Magnesia 30 ML CUP PO (10:32)
[2018-09-22 15:55] VITALS: BP 153/88; PULSE 74; RESP 18; TEMP 36.6; O2SAT 97
[2018-09-22] MEDS: Lidocaine 5% Patch 1 PATCH TP (17:49)
[2018-09-22] MEDS: Diazepam 5 MG TAB PO (22:05)
[2018-09-23] MEDS: Normal Saline Flush 10 ML SYR IVP ×4 (02:03→22:18)
[2018-09-23] MEDS: oxyCODONE 15 MG TAB 30 MG PO ×5 (05:11→22:18)
[2018-09-23 05:15] VITALS: BP 150/90; PULSE 62; RESP 16; TEMP 36.2; O2SAT 99
[2018-09-23] MEDS: Patch Removal 1 EACH TP (06:44)
[2018-09-23 07:40] VITALS: BP 153/98; PULSE 69; RESP 18; TEMP 36.4; O2SAT 98
[2018-09-23] MEDS: Normal Saline Flush 10 ML SYR 20 ML IVP ×2 (08:04→21:53)
[2018-09-23] MEDS: DULoxetine 30 MG CAP PO (08:05)
[2018-09-23] MEDS: amLODIPine 5 MG TAB PO (08:05)
[2018-09-23] MEDS: Docusate Sodium 100 MG CAP PO ×2 (08:05→21:53)
[2018-09-23] MEDS: LORazepam 1 MG TAB PO (08:05)
[2018-09-23] MEDS: Ibuprofen 800 MG TAB PO ×3 (08:05→21:53)
[2018-09-23] MEDS: Gabapentin 300 MG CAP 600 MG PO ×3 (08:06→21:53)
[2018-09-23] MEDS: Acetaminophen 500 MG TAB 1000 MG PO (08:06)
[2018-09-23] MEDS: Pantoprazole 40 MG TABCR PO ×2 (08:07→21:53)
--- NOTE | 2018-09-23 09:06 | PDOC.CMACT ---
- If Service Date Differs Date of service: 09/23/18 Time of Service: 09:06 Care Management Activity Note Jason remains in a swingbed level of care for IV antibiotics and wound care. He enjoys doing Sudoku and watching TV. Jason also enjoys playing on his phone, and his friend brought him a movie to watch the other day. Jason's IV antibiotic completion date is scheduled for 09/28/18 at this time. staff submarine warfare officer is teaching Jason how to change his own dressing which he was receptive to. Jason is offered the activity cart, as well as Reiki, Pet Therapy, and music therapy.
--- NOTE | 2018-09-23 09:58 | CMACTNOTE_ITS ---
- If Service Date Differs Date of service: 09/23/18 Time of Service: 09:06 Care Management Activity Note Jason remains in a swingbed level of care for IV antibiotics and wound care. He enjoys doing Sudoku and watching TV. Jason also enjoys playing on his phone, and his friend brought him a movie to watch the other day. Jason's IV antibiotic completion date is scheduled for 09/28/18 at this time. workforce staffing advisor is teaching Jason how to change his own dressing which he was receptive to. Jai clancy is offered the activity cart, as well as Reiki, Pet Therapy, and music therapy.
[2018-09-23 15:57] LABS: C-Reactive Protein 2.07 mg/dL (0.0-0.3)
[2018-09-23 17:08] VITALS: BP 130/76; PULSE 71; RESP 18; TEMP 36.8; O2SAT 97
[2018-09-23] MEDS: Lidocaine 5% Patch 1 PATCH TP (18:13)
--- NOTE | 2018-09-23 18:41 | NUR.NOTE ---
Nursing Note: patient still is rather quiet tonight , needs to be encouraged to engage in conversation, once started he communicates well does not appear to be in any distress other than baseline discomfort,
[2018-09-24 00:09] VITALS: BP 106/61; PULSE 70; RESP 20; TEMP 36.6; O2SAT 98
--- NOTE | 2018-09-24 01:35 | NUR.NOTE ---
Nursing Note: 09/23/18 194 Patient seen in the hallway smilling and conversant with this RN, patient informed this RN that he is going out for his evening walk. CC notified.
--- NOTE | 2018-09-24 01:37 | NUR.NOTE ---
Nursing Note: 09/23/182039H Patient safely back from his evening walk. CC notified
[2018-09-24] MEDS: oxyCODONE 15 MG TAB 30 MG PO ×5 (04:03→20:47)
[2018-09-24] MEDS: Patch Removal 1 EACH TP (06:04)
[2018-09-24] MEDS: Ibuprofen 800 MG TAB PO ×3 (07:23→19:39)
[2018-09-24] MEDS: amLODIPine 5 MG TAB PO (07:24)
[2018-09-24] MEDS: Gabapentin 300 MG CAP 600 MG PO ×3 (07:24→19:39)
[2018-09-24] MEDS: Docusate Sodium 100 MG CAP PO ×2 (07:24→19:40)
[2018-09-24] MEDS: DULoxetine 30 MG CAP PO (07:25)
[2018-09-24] MEDS: Normal Saline Flush 10 ML SYR 20 ML IVP ×2 (07:25→19:40)
[2018-09-24] MEDS: Pantoprazole 40 MG TABCR PO ×2 (07:25→19:39)
[2018-09-24 08:22] VITALS: BP 158/93; RESP 18; O2SAT 98
[2018-09-24] MEDS: Acetaminophen 500 MG TAB 1000 MG PO ×2 (12:23→20:47)
[2018-09-24] MEDS: LORazepam 1 MG TAB PO ×2 (15:13→21:53)
[2018-09-24] MEDS: Normal Saline Flush 10 ML SYR IVP ×2 (15:13→21:53)
[2018-09-24 16:42] VITALS: BP 146/80; PULSE 76; RESP 20; TEMP 36.3; O2SAT 97
[2018-09-24] MEDS: Lidocaine 5% Patch 1 PATCH TP (18:23)
[2018-09-24 19:30] VITALS: BP 138/80; PULSE 89; RESP 18; TEMP 36; O2SAT 98
--- NOTE | 2018-09-24 20:42 | W.PM.PROGNOT ---
Date of Service Date of service: 09/24/18 Time of Service: 16:00 Assessment and Plan (1) Psoas abscess, left: Current visit: No Status: Acute Due to MSSA, on ancef IV. CRP is not budging, remains elevated. [place]iscuss[place] with [place] [facility] [place]x are being extended to 8 weeks, but needs to be reimaged to see if the abscess is now big enough to drain. (2) Malaise: Current visit: Yes Status: Acute Flu negative. Checking blood cultures. (3) Uncontrolled pain: Current visit: Yes Status: Acute Continue oxycodone at current dose as well as gabapentin and cymbalta. (4) Anxiety: Current visit: Yes Status: Chronic Controlled currently - no change in medications (5) Edema: Current visit: Yes Status: Resolved no further workup Subjective Interval history since last seen: Jason does not feel any better. 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 He shows me a picture of his wound which still has drainage. Denies dizziness, chest pain, shortness of breath, nausea, vomiting, but complains of feeling generalized aches and just unwell. I discussed the case with Dr Restrepo as well as with her [facility] [place] team (Dr Youngblood, Dr Meier). Per [facility] [place], abx can be extended to 8 weeks, but he does need to be reimaged and images pushed to [facility] [place]. He is scheduled for MRI of LLE with/without contrast on 09/27/18. Exam Narrative Exam Narrative: General: Obese male, today looks sad and sleepy Psychiatric: appears sad Heart: RRR, no m/r/g HEENT: EOMI, MMM Abdomen: nondistended Extremities: L hip wound is dressed. Objective Objective Clinical Data: Vital Signs Temperature 36.3 C L 09/24/18 16:42 Temperature Source Tympanic 09/24/18 16:42 Pulse 76 09/24/18 16:42 Pulse Rhythm Regular 09/24/18 15:50 Respiratory Rate 20 09/24/18 16:42 Respiratory Effort Non-Labored 09/24/18 15:50 Respiratory Depth Normal 09/24/18 15:50 Respiratory Pattern Normal 09/24/18 15:50 Blood Pressure 146/80 H 09/24/18 16:42 Pulse Oximetry 97 09/24/18 16:42 Oxygen Delivery Method Room Air 09/24/18 16:42 Oxygen Flow Rate 0 09/24/18 16:42 Pain Level 6 09/24/18 19:39 Comment 09/23/18 07:40 Intake & Output 09/23/18 09/24/18 09/24/18 23:59 11:59 23:59 Intake Total 280 / 380 100 / 340 240 / 340 Balance 280 / 380 100 / 340 240 / 340 Intake: IV 280 / 380 100 / 100 Oral 240 / 240 Other: Urine Appearance Clear Clear Clear Comment pt voiding independently; urine not assessed Laboratory Results WBC 5.01 k/cumm (4.4-10.8) 09/20/18 06:38 RBC 4.13 m/cumm (4.50-6.00) L 09/20/18 06:38 Hgb 11.0 g/dL (13.5-17.5) L 09/20/18 06:38 Hct 34.9 % (40.0-50.0) L 09/20/18 06:38 MCV 84.5 fL (80-95) 09/20/18 06:38 MCH 26.6 pg (27.0-33.0) L 09/20/18 06:38 MCHC 31.5 g/dL (32.0-36.0) L 09/20/18 06:38 RDW 14.7 % (11.8-14.1) H 09/20/18 06:38 Plt Count 230 x1000/uL (130-400) 09/20/18 06:38 MPV 9.3 fL (8.0-11.0) 09/20/18 06:38 Immature Gran % 0.0 09/20/18 06:38 Neutrophils % 53.3 09/20/18 06:38 Lymphocytes % 31.7 09/20/18 06:38 Monocytes % 8.4 09/20/18 06:38 Eosinophils % 6.2 09/20/18 06:38 Basophils % 0.4 09/20/18 06:38 Absolute Neutrophils 2.67 k/cumm (1.2-6.7) 09/20/18 06:38 Absolute Lymphocytes 1.59 k/cumm (1.2-3.4) 09/20/18 06:38 Absolute Monocytes 0.42 k/cumm (0.11-0.7) 09/20/18 06:38 Absolute Eosinophils 0.31 k/cumm (0.0-0.7) 09/20/18 06:38 Absolute Basophils 0.02 k/cumm (0.0-0.2) 09/20/18 06:38 Sodium 142 mmol/L (136-145) 09/20/18 06:38 Potassium 4.1 mmol/L (3.5-5.1) 09/20/18 06:38 Chloride 105 mmol/L (98-107) 09/20/18 06:38 Carbon Dioxide 28.8 mmol/L (21.0-32.0) 09/20/18 06:38 Anion Gap 8.2 mmol/L (3-11) 09/20/18 06:38 BUN 18 mg/dL (7-18) 09/20/18 06:38 Creatinine 1.04 mg/dL (0.70-1.30) 09/20/18 06:38 Estimated GFR/1.73 m2 >= 60.00 (mL/min/1.73m2) 09/20/18 06:38 Glucose 107 mg/dL (70-100) H 09/20/18 06:38 Calcium 8.5 mg/dL (8.5-10.1) 09/20/18 06:38 Magnesium 1.9 mg/dL (1.8-2.4) 09/11/18 11:45 Total Bilirubin 0.2 mg/dL (0.2-1.0) 09/20/18 06:38 AST 21 U/L (15-37) 09/20/18 06:38 ALT 11 U/L (12-78) L 09/20/18 06:38 Alkaline Phosphatase 105 U/L (46-116) 09/20/18 06:38 C-Reactive Protein 2.07 mg/dL (0.0-0.3) H 09/23/18 14:00 Total Protein 7.1 g/dL (6.4-8.2) 09/20/18 06:38 Albumin 3.1 g/dL (3.4-5.0) L 09/20/18 06:38
[2018-09-24] MEDS: Normal Saline 500 ML 200 ML IV (21:52)
[2018-09-25] MEDS: oxyCODONE 15 MG TAB 30 MG PO ×5 (02:52→22:10)
[2018-09-25 03:58] VITALS: BP 182/95; PULSE 67; RESP 20; TEMP 35.9; O2SAT 98
[2018-09-25] MEDS: Acetaminophen 500 MG TAB 1000 MG PO ×2 (04:26→13:25)
[2018-09-25] MEDS: Patch Removal 1 EACH TP (06:35)
[2018-09-25] MEDS: Docusate Sodium 100 MG CAP PO ×2 (08:52→21:08)
[2018-09-25] MEDS: Ibuprofen 800 MG TAB PO ×3 (08:52→21:08)
[2018-09-25] MEDS: DULoxetine 30 MG CAP PO (08:53)
[2018-09-25] MEDS: Pantoprazole 40 MG TABCR PO ×2 (08:53→21:08)
[2018-09-25] MEDS: amLODIPine 5 MG TAB PO (08:53)
[2018-09-25] MEDS: Gabapentin 300 MG CAP 600 MG PO ×3 (08:53→21:08)
[2018-09-25] MEDS: Normal Saline Flush 10 ML SYR 20 ML IVP ×2 (08:53→21:09)
[2018-09-25] MEDS: cloNIDine 0.1 MG PATCH TD (10:11)
[2018-09-25] MEDS: Patch Removal 1 EACH TD (10:11)
[2018-09-25] MEDS: LORazepam 1 MG TAB PO (13:24)
[2018-09-25 16:28] VITALS: BP 152/90; PULSE 75; RESP 18; TEMP 36.5; O2SAT 98
[2018-09-25] MEDS: Lidocaine 5% Patch 1 PATCH TP (17:46)
[2018-09-26] MEDS: oxyCODONE 15 MG TAB 30 MG PO ×5 (02:09→19:26)
[2018-09-26 02:13] VITALS: BP 160/101; PULSE 78; RESP 18; TEMP 36.7; O2SAT 97
[2018-09-26] MEDS: Patch Removal 1 EACH TP (05:24)
[2018-09-26 07:34] VITALS: BP 166/103; PULSE 75; RESP 18; TEMP 35.4; O2SAT 97
[2018-09-26] MEDS: Docusate Sodium 100 MG CAP PO ×2 (09:16→19:27)
[2018-09-26] MEDS: Ibuprofen 800 MG TAB PO ×3 (09:16→19:27)
[2018-09-26] MEDS: Gabapentin 300 MG CAP 600 MG PO ×3 (09:16→19:26)
[2018-09-26] MEDS: Pantoprazole 40 MG TABCR PO ×2 (09:17→19:27)
[2018-09-26] MEDS: LORazepam 1 MG TAB PO (09:17)
[2018-09-26] MEDS: Acetaminophen 500 MG TAB 1000 MG PO (09:17)
[2018-09-26] MEDS: Normal Saline Flush 10 ML SYR 20 ML IVP ×2 (09:17→19:26)
[2018-09-26] MEDS: DULoxetine 30 MG CAP PO (09:17)
[2018-09-26] MEDS: amLODIPine 5 MG TAB PO (09:17)
--- NOTE | 2018-09-26 12:56 | W.PM.PROGNOT ---
Date of Service Date of service: 09/26/18 Time of Service: 12:56 Assessment and Plan (1) Psoas abscess, left: Current visit: No Status: Acute Jason continues to have complaints of left hip and pelvic pain. The last MRI still showed fluid collection around the psoas tendon. His CRP continues to stay at 2. He has made no changes. We are now at 6 weeks of IV antibiotics after 3 surgical debridements. I am really concerned that we are not addressing the primary issue. He still has groin pain, he still has an elevated CRP, and he still has fluid around the psoas tendon. He has met with infectious disease and general surgery with radiology consultation, and this point no changes recommended. However, I feel like this is not adequate treatment. We will repeat an MRI on Thursday to once again look at the fluid collection around the psoas tendon. A repeat CRP should be drawn as well. With this information we need to discuss this with [facility]. There is been no change to his pain, symptoms, or laboratory values in 3 weeks with the current treatment regimen is something needs to change. I sent him down to [facility] initially due to the complexity of this case and its behavior as an atypical variant. I appreciate the intervention by the surgery and infectious disease teams at [facility] but will push for a change of plan once we obtain the information on Thursday. Jason agrees with this method. He is also quite frustrated that nothing is seem to change in the last few weeks. Subjective Interval history since last seen: Jason continues to complain of pain about the left groin and pelvic region. He also complains of some swelling about the left hip area. He denies any fevers or chills. He has found slightly more increase in pain with ambulation. Unfortunately, he continues have multiple social stressors. His father yesterday due to a massive [place]. He was at [facility]. No new symptoms. He has noted some increase in sanguinous discharge from the dressing. Otherwise no changes. Exam Narrative Exam Narrative: Walking the halls with a slight limp. And evaluation within his room the left wound is examined. Dressings peeled back and it shows that the wound is still cole down. There is healthy granulation tissue seen in the bed. No sniffing of purulence. There is some serosanguineous discharge in the area but is much more sanguinous than it has been in the past. No significant purulence. There is edema seen especially lateral to the wound. This is painful to palpation. He also has pain to palpation medial to the wound, medial to the ASIS and within the groin. Gentle internal and external rotation of the leg does not seem to cause pain but internal rotation past about 10 degrees causes pelvic and groin pain. Objective Objective Clinical Data: Vital Signs Temperature 35.4 C L 09/26/18 07:34 Temperature Source Tympanic 09/26/18 07:34 Pulse 75 09/26/18 07:34 Pulse Rhythm Regular 09/25/18 21:05 Respiratory Rate 18 09/26/18 07:34 Respiratory Effort 09/25/18 21:05 Respiratory Depth Normal 09/25/18 21:05 Respiratory Pattern Normal 09/25/18 21:05 Blood Pressure 166/103 H 09/26/18 07:34 Pulse Oximetry 97 09/26/18 07:34 Oxygen Delivery Method Room Air 09/26/18 07:34 Oxygen Flow Rate 0 09/26/18 07:34 Pain Level 8 09/26/18 11:01 Comment 09/25/18 03:58 Intake & Output 09/25/18 09/26/18 09/26/18 23:59 11:59 23:59 Intake Total 460 / 1390 580 / 580 Balance 460 / 1390 580 / 580 Intake: IV 220 / 320 100 / 100 Oral 240 / 1070 480 / 480 Other: Urine Color Yellow Urine Appearance Clear Clear Urine Odor Normal Voiding Methods Toilet Toilet Laboratory Results WBC 5.01 k/cumm (4.4-10.8) 09/20/18 06:38 RBC 4.13 m/cumm (4.50-6.00) L 09/20/18 06:38 Hgb 11.0 g/dL (13.5-17.5) L 09/20/18 06:38 Hct 34.9 % (40.0-50.0) L 09/20/18 06:38 MCV 84.5 fL (80-95) 09/20/18 06:38 MCH 26.6 pg (27.0-33.0) L 09/20/18 06:38 MCHC 31.5 g/dL (32.0-36.0) L 09/20/18 06:38 RDW 14.7 % (11.8-14.1) H 09/20/18 06:38 Plt Count 230 x1000/uL (130-400) 09/20/18 06:38 MPV 9.3 fL (8.0-11.0) 09/20/18 06:38 Immature Gran % 0.0 09/20/18 06:38 Neutrophils % 53.3 09/20/18 06:38 Lymphocytes % 31.7 09/20/18 06:38 Monocytes % 8.4 09/20/18 06:38 Eosinophils % 6.2 09/20/18 06:38 Basophils % 0.4 09/20/18 06:38 Absolute Neutrophils 2.67 k/cumm (1.2-6.7) 09/20/18 06:38 Absolute Lymphocytes 1.59 k/cumm (1.2-3.4) 09/20/18 06:38 Absolute Monocytes 0.42 k/cumm (0.11-0.7) 09/20/18 06:38 Absolute Eosinophils 0.31 k/cumm (0.0-0.7) 09/20/18 06:38 Absolute Basophils 0.02 k/cumm (0.0-0.2) 09/20/18 06:38 Sodium 142 mmol/L (136-145) 09/20/18 06:38 Potassium 4.1 mmol/L (3.5-5.1) 09/20/18 06:38 Chloride 105 mmol/L (98-107) 09/20/18 06:38 Carbon Dioxide 28.8 mmol/L (21.0-32.0) 09/20/18 06:38 Anion Gap 8.2 mmol/L (3-11) 09/20/18 06:38 BUN 18 mg/dL (7-18) 09/20/18 06:38 Creatinine 1.04 mg/dL (0.70-1.30) 09/20/18 06:38 Estimated GFR/1.73 m2 >= 60.00 (mL/min/1.73m2) 09/20/18 06:38 Glucose 107 mg/dL (70-100) H 09/20/18 06:38 Calcium 8.5 mg/dL (8.5-10.1) 09/20/18 06:38 Magnesium 1.9 mg/dL (1.8-2.4) 09/11/18 11:45 Total Bilirubin 0.2 mg/dL (0.2-1.0) 09/20/18 06:38 AST 21 U/L (15-37) 09/20/18 06:38 ALT 11 U/L (12-78) L 09/20/18 06:38 Alkaline Phosphatase 105 U/L (46-116) 09/20/18 06:38 C-Reactive Protein 2.07 mg/dL (0.0-0.3) H 09/23/18 14:00 Total Protein 7.1 g/dL (6.4-8.2) 09/20/18 06:38 Albumin 3.1 g/dL (3.4-5.0) L 09/20/18 06:38
[2018-09-26 15:40] VITALS: BP 171/103; PULSE 89; RESP 20; TEMP 36.6; O2SAT 97
[2018-09-26] MEDS: Lidocaine 5% Patch 1 PATCH TP (18:15)
[2018-09-26] MEDS: Normal Saline Flush 10 ML SYR IVP (21:45)
[2018-09-27] MEDS: oxyCODONE 15 MG TAB 30 MG PO ×6 (02:27→22:20)
[2018-09-27] MEDS: Acetaminophen 500 MG TAB 1000 MG PO ×3 (02:27→18:01)
[2018-09-27 03:18] VITALS: BP 138/83; PULSE 70; RESP 18; TEMP 36.2; O2SAT 96
[2018-09-27] MEDS: Patch Removal 1 EACH TP (06:04)
[2018-09-27] MEDS: Pantoprazole 40 MG TABCR PO ×2 (06:43→19:59)
[2018-09-27 07:28] LABS: Abs Immature Grans 0.01 k/cumm (0.0-0.09); Absolute Basophil Count 0.02 k/cumm (0.0-0.2); Absolute Eosinophil Count 0.28 k/cumm (0.0-0.7); Absolute Lymphocyte Count 1.83 k/cumm (1.2-3.4); Absolute Monocyte Count 0.49 k/cumm (0.11-0.7); Absolute Neutrophil Count 2.79 k/cumm (1.2-6.7); Basophils % 0.4; Eosinophils % 5.2; HCT 34.5 % (40.0-50.0); HGB 11.3 g/dL (13.5-17.5); Immature Grans % 0.2; Lymphocytes % 33.8; Mean Corp. HGB Concentration 32.8 g/dL (32.0-36.0); Mean Corpuscular Hemoglobin 27.2 pg (27.0-33.0); Mean Corpuscular Volume 83.1 fL (80-95); Mean Platelet Volume 9.1 fL (8.0-11.0); Neutrophils % 51.4; Platelet Count 216 x1000/uL (130-400); RBC 4.15 m/cumm (4.50-6.00); RBC Distribution Width 14.3 % (11.8-14.1); White Blood Cell Count 5.42 k/cumm (4.4-10.8)
[2018-09-27 07:40] VITALS: BP 159/84; PULSE 75; RESP 20; TEMP 36.7; O2SAT 98
[2018-09-27 07:48] LABS: ALT 11 U/L (12-78); AST 26 U/L (15-37); Albumin 3.1 g/dL (3.4-5.0); Alkaline Phosphatase 116 U/L (46-116); Anion Gap 6.4 mmol/L (3-11); BUN 14 mg/dL (7-18); Bilirubin, Total 0.2 mg/dL (0.2-1.0); C-Reactive Protein 1.61 mg/dL (0.0-0.3); CO2 29.6 mmol/L (21.0-32.0); CREATININE 0.88 mg/dL (0.70-1.30); Calcium 8.2 mg/dL (8.5-10.1); Chloride 105 mmol/L (98-107); Glucose 100 mg/dL (70-100); Potassium 3.8 mmol/L (3.5-5.1); Sodium 141 mmol/L (136-145)
[2018-09-27] MEDS: DULoxetine 30 MG CAP PO (08:21)
[2018-09-27] MEDS: Docusate Sodium 100 MG CAP PO ×2 (08:21→20:00)
[2018-09-27] MEDS: Ibuprofen 800 MG TAB PO ×3 (08:21→20:00)
[2018-09-27] MEDS: amLODIPine 5 MG TAB PO (08:21)
[2018-09-27] MEDS: Gabapentin 300 MG CAP 600 MG PO ×2 (08:22→19:59)
[2018-09-27] MEDS: Normal Saline Flush 10 ML SYR 20 ML IVP ×2 (08:24→20:00)
[2018-09-27] MEDS: Normal Saline Flush 10 ML SYR IVP ×3 (10:40→21:22)
[2018-09-27] MEDS: ALPRAZolam 0.5 MG TAB PO (13:36)
[2018-09-27] MEDS: LORazepam 1 MG TAB PO ×2 (13:38→22:21)
[2018-09-27] MEDS: Gadoterate meglumine 20 ML VIAL IVP (15:22)
--- NOTE | 2018-09-27 15:39 | DI.MRI_ITS ---
SYMPTOMS/DIAGNOSIS: F/U LEFT ILIOPSOAS ABSCESS MRI OF THE LEFT HIP: Comparison is made with September,. T1 and fat-suppressed T2 axial, coronal and sagittal as well as fat-suppressed T1 axial, coronal and sagittal before and after IV gadolinium were performed. The exam is somewhat limited by patient motion and poor fat suppression. There is a stable amount of edema in the iliacus and psoas muscle. There is a stable amount of enhancement following IV gadolinium, greatest at the inferior aspect of the psoas muscle. Scarring in the anterior left hip also shows some post contrast enhancement, unchanged. There are stable small lymph nodes in the left iliac chain. Hardware is noted in the lower lumbar spine. The marrow signal appears normal. IMPRESSION: Stable appearance of left iliopsoas abscess.
[2018-09-27 16:40] VITALS: BP 135/75; PULSE 78; RESP 20; TEMP 35.3; O2SAT 98
[2018-09-27] MEDS: Lidocaine 5% Patch 1 PATCH TP (18:01)
[2018-09-28] MEDS: oxyCODONE 15 MG TAB 30 MG PO ×5 (03:39→22:36)
--- NOTE | 2018-09-28 04:51 | NUR.NOTE ---
Nursing Note: I entered the kitchen on the [facility] floor to find Jason in the refrigerator and cupboards. I asked him if I could get something for him, and told him of the staff only infection control policy for the kitchen. He states that he is not helpless and I again told him of the policy and that I would get him whatever he needed and staff will always bring him what he requests if we have it. He stated he has a special way to make his coffee. I asked what he needed and got him milk. He states that he sneaks into the kitchen all the time and I repeated the reasoning for staff only. He does not accept this and said he will come back later. I asked him to please not go into the kitchen and to ask staff for help. I mentioned that the sign on the door is there as a reminder, he tells me he cannot read, I mentioned that I was aware he has been asked multiple times not to enter the hospital kitchenette. He tells another nurse that I am yelling at him, she asks him if he needs anything, he says yes but he will come back later and have someone else help him. RN Rd and charge nurse Lilliam present during this interaction.
[2018-09-28] MEDS: Normal Saline Flush 10 ML SYR IVP ×3 (06:28→21:35)
[2018-09-28] MEDS: Patch Removal 1 EACH TP (06:29)
[2018-09-28] MEDS: Acetaminophen 500 MG TAB 1000 MG PO ×3 (07:19→18:22)
[2018-09-28] MEDS: amLODIPine 5 MG TAB PO (07:20)
[2018-09-28] MEDS: Ibuprofen 800 MG TAB PO ×3 (07:20→20:12)
[2018-09-28] MEDS: Pantoprazole 40 MG TABCR PO ×2 (07:20→20:12)
[2018-09-28] MEDS: Docusate Sodium 100 MG CAP PO ×2 (07:21→20:12)
[2018-09-28] MEDS: DULoxetine 30 MG CAP PO (07:21)
[2018-09-28 07:30] VITALS: BP 135/87; PULSE 65; RESP 20; TEMP 36.1; O2SAT 99
[2018-09-28] MEDS: Gabapentin 300 MG CAP 600 MG PO ×3 (08:38→20:12)
[2018-09-28] MEDS: Normal Saline Flush 10 ML SYR 20 ML IVP ×2 (08:39→20:12)
[2018-09-28 17:01] VITALS: BP 131/80; PULSE 65; RESP 16; TEMP 36.2; O2SAT 97
[2018-09-28] MEDS: Lidocaine 5% Patch 1 PATCH TP (18:15)
[2018-09-28] MEDS: Normal Saline 500 ML 200 ML IV (21:33)
[2018-09-28] MEDS: Milk of Magnesia 30 ML CUP PO (22:40)
[2018-09-29 01:01] VITALS: BP 152/86; PULSE 60; RESP 15; TEMP 36.4; O2SAT 99
[2018-09-29] MEDS: oxyCODONE 15 MG TAB 30 MG PO ×3 (02:29→11:12)
[2018-09-29] MEDS: Acetaminophen 500 MG TAB 1000 MG PO (02:30)
[2018-09-29] MEDS: Patch Removal 1 EACH TP (05:37)
[2018-09-29] MEDS: LORazepam 1 MG TAB PO (06:30)
[2018-09-29] MEDS: Pantoprazole 40 MG TABCR PO (08:45)
[2018-09-29] MEDS: Normal Saline Flush 10 ML SYR 20 ML IVP (08:45)
[2018-09-29] MEDS: amLODIPine 5 MG TAB PO (08:45)
[2018-09-29] MEDS: Ibuprofen 800 MG TAB PO ×2 (08:45→13:24)
[2018-09-29] MEDS: Gabapentin 300 MG CAP 600 MG PO ×2 (08:45→13:24)
[2018-09-29] MEDS: Docusate Sodium 100 MG CAP PO (08:46)
[2018-09-29] MEDS: DULoxetine 30 MG CAP PO (08:46)
[2018-09-29 11:08] VITALS: BP 158/95; PULSE 90; RESP 19; TEMP 36.1; O2SAT 98
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
--- NOTE | 2018-09-29 14:28 | PDOC.CMDIS ---
- If Service Date Differs Date of service: 09/29/18 Time of Service: 14:28 LACE Index Scoring Tool - Questions: Length of Stay (in days): 14 or more Acuity (Admit via E.D.?): No E.D. Visits: 2 - Answers: Total Score: 9 Risk of Readmission: Low Risk Care Management Discharge Reason for Hospitalization: Swingbed for Iliopsoas Abscess Discharge Plan: Jason will return to the community today with no services. He will F/U with his PCP, [facility] ID and [facility] Surgical at time of discharge. Jason has learned to do his own dressing changes and has been discharged with dressing supplies. Jason states that he will be staying with his friend Abhi for the next two nights. Patient/Family Education Needs: Review DC instructions, any limitations, and discuss ask me three
--- NOTE | 2018-09-29 14:31 | CMDISCH_ITS ---
- If Service Date Differs Date of service: 09/29/18 Time of Service: 14:28 LACE Index Scoring Tool - Questions: Length of Stay (in days): 14 or more Acuity (Admit via E.D.?): No E.D. Visits: 2 - Answers: Total Score: 9 Risk of Readmission: Low Risk Care Management Discharge Reason for Hospitalization: Swingbed for Iliopsoas Abscess Discharge Plan: Jason will return to the community today with no services. He will F/U with his PCP, [facility] ID and [facility] Surgical at time of discharge. Jason has learned to do his own dressing changes and has been discharged with dressing supplies. Jason states that he will be staying with his friend Abhi for the next two nights. Patient/Family Education Needs: Review DC instructions, any limitations, and discuss ask me three
== END 2018-09-29 14:50 | disposition home or self-care (01) | DRG 372 ==
PROVIDERS: Internal Medicine; Nurse Practitioner; Student in an Organized Health Care Education/Training Program; Admitting Provider Internal Medicine; PCP Nurse Practitioner Family; Visit Provider Internal Medicine
DX: K68.12 Psoas muscle abscess (principal); T82.898A Other specified complication of vascular prosthetic devices, implants and grafts, initial encounter; T85.618A Breakdown (mechanical) of other specified internal prosthetic devices, implants and grafts, initial encounter; F41.8 Other specified anxiety disorders; F31.9 Bipolar disorder, unspecified; R60.0 Localized edema; M79.652 Pain in left thigh; M25.552 Pain in left hip; Z87.820 Personal history of traumatic brain injury; B18.2 Chronic viral hepatitis C; I10 Essential (primary) hypertension; E78.5 Hyperlipidemia, unspecified; K21.9 Gastro-esophageal reflux disease without esophagitis; D50.9 Iron deficiency anemia, unspecified; B95.61 Methicillin susceptible Staphylococcus aureus infection as the cause of diseases classified elsewhere; Z60.8 Other problems related to social environment; F19.11 Other psychoactive substance abuse, in remission
CPT/HCPCS: 36415; 80048; 80053; 85027; 87040; 87449; 99222; 99232; 99233; 99239; 99253; 99254; 99305; 99307; 99308; 99309; 99316; NC; 73723; 83735; 85025; 86140; 87070; 87205; J0131; J0690; J1885; J2060; J2997; J3490

== ENCOUNTER 2018-10-04 11:24 | Emergency (ER) | payer MEDICARE, MEDICAID, SELFPAY ==
[2018-10-04 11:30] VITALS: BP 154/96; PULSE 90; RESP 16; TEMP 36.2; O2SAT 98
--- NOTE | 2018-10-04 11:40 | ED.GENADUL_ITS ---
Discharge Plan Disposition Patient Disposition: HOME Condition: Good Discharge Details Chief Complaint: Orthopedic Clinical Impression: Acute pain of left hip Primary Care Provider: Ashely Mueller ED Provider: Kartik Sullivan Home Meds and New Rx's Prescriptions: New hydrocodone-acetaminophen [[place]] 7.5-325 mg tablet 1 tab PO Q6H Qty: 5 RF: 0 No Action clonidine [Jsmvxpfb-SFI-6] 0.1 mg/24 hr Patch Weekly 0.1 mg Transdermal Q7D Qty: 4 RF: 0 ibuprofen [IBU] 800 mg Tablet 800 mg PO TID Qty: 30 RF: 0 amlodipine 5 mg Tablet 5 mg PO DAILY Qty: 30 RF: 0 acetaminophen [Mapap Extra Strength] 500 mg Tablet 1,000 mg PO Q8H PRN PRNQty: 0 RF: 0 lidocaine [Lidoderm] 5 % Adhesive Patch,Medicated 1 patch topical DAILY@1800 Qty: 14 RF: 0 docusate sodium [Colace] 100 mg Capsule 100 mg PO BID Qty: 60 RF: 0 gabapentin 300 mg Capsule 600 mg PO TID Qty: 90 RF: 0 duloxetine [Cymbalta] 30 mg Capsule,Delayed Release(Dr/Ec) 30 mg PO DAILY Qty: 14 RF: 0 oxycodone 15 mg Tablet 30 mg PO Q4H PRN PRNQty: 72 RF: 0 pantoprazole 40 mg Tablet,Delayed Release (Dr/Ec) 40 mg PO BID@0730,2000 Qty: 60 RF: 0 Discharge Instructions Instructions: Leg Pain (ED) Additional Instructions: Please follow-up promptly with Dr. Restrepo tomorrow morning. If you notice any worsening of your symptoms, or any new symptoms such as vomiting, diarrhea, fever, chills, shortness of breath, chest pain, numbness, weakness, or fainting , please return immediately to the emergency department for reevaluation. Please follow up with your primary care provider as soon as possible for reassessment and reevaluation. As always, it was a pleasure participating in your medical care today. Referrals: Natanael Restrepo MD [ [facility] STAFF PHYSICIAN] - Medical Decision Making This is a 43-year-old male with a complicated past medical history of a left hip infection, subsequently receiving multiple surgeries, washouts, and most recently admission to [facility], for antibiotics, IR guided drainage of a psoas abscess, antibiotics. He was discharged within the last 2 weeks, antibiotics were stopped secondary to recommendations from ID as blood cultures were negative, and infectious markers were benign. He was discharged home and over the last 2 days he has noted chills, a fever of 102 T-max, and slight increase in the discharge from his left open wound with a color of green and yellow. Contacted his orthopedic surgeon here Dr. Restrepo who recommended he come in for further evaluation and potential transfer to [facility]. After discussion of the case with the orthopedic surgeon Dr. Restrepo we will get infectious markers, blood cultures, laboratory workup, and eventual contact [facility] surgery for potential surgical management. 2:25 PM Patient's laboratory workup has returned, patient demonstrates no significant white count, no left shift whatsoever. ESR is 45, and CRP is 0.88, both of these values are notably downtrending from his last values. In fact they are half of what they were less than 2 weeks ago. Patient is afebrile here, no evidence of tachycardia, and no clinical signs of significant systemic infection. Dr. Restrepo actually reach out to us upon his personal review of the labs, and at this time he recommends that with the notable improvement, normal vital signs, and a clinical picture consistent with systemic infection, the patient can be discharged home with close follow-up tomorrow morning at his office in close contact with Dr. Vásquez consult. The patient does have [facility] for his office and Dr. Restrepo. Dr. Esquivel would like to hold off on antibiotics for the time being, continue to monitor closely. I discussed this with the patient the patient understands. I have extensively reviewed the treatment plan and discharge instructions with the patient. I have addressed all patient concerns at this time. The patient was made aware of what symptoms to m onitor for that would warrant a return to the emergency department. Discussed the plan with the patient, they demonstrate verbal understanding and agreement with our assessment and plan at this time. HPI General Date/Time Provider Initiated Documentation: 10/04/18 11:26 . HPI Narrative: This is a 43-year-old male with a past medical history of a left hip infection, subsequent abscess, multiple surgical washouts, initially here and then with subsequent failed treatment, requiring admission to [facility], failed interventional radiology drainage of the abscess, who was discharged from [facility] on , who at that time ID had decided to stop antibiotics as they felt infectious component was less likely at that time. He does have a known so as abscess, and he was discharged with close orthopedic follow-up here with Dr. Restrepo, as well as prompt return follow-up at [facility] in 10 days for further ID/surgical/ortho reevaluation. Since discharge over the last 3 days the patient has noticed increased drainage from his left anterior hip open wound, with fevers at home with a T-max of 102, chills, slightly worsening pain in and around his left hip, head worse hydrated which he describes as green. He did contact Dr. Restrepo his orthopedic surgeon, who recommended he come into the ER for further evaluation. The patient denies any current IV drug use, any chest pain, abdominal pain, vomiting, diarrhea, fever, chills, new numbness tingling or weakness. No other complaints at this time. No other modifying factors. Related Data Home Medications Medication Instructions Recorded Confirmed acetaminophen [Mapap Extra 1,000 mg PO Q8H PRN PRN #0 tab 09/29/18 10/04/18 Strength] amlodipine 5 mg PO DAILY #30 tab 09/29/18 10/04/18 clonidine [Nygookrx-CBA-3] 0.1 mg TRANSDERMAL Q7D #4 ea 09/29/18 10/04/18 docusate sodium [Colace] 100 mg PO BID #60 cap 09/29/18 10/04/18 duloxetine [Cymbalta] 30 mg PO DAILY #14 cap 09/29/18 10/04/18 gabapentin 600 mg PO TID #90 cap 09/29/18 10/04/18 ibuprofen [IBU] 800 mg PO TID #30 tab 09/29/18 10/04/18 lidocaine [Lidoderm] 1 patch TOPICAL DAILY@1800 #14 ea 09/29/18 10/04/18 oxycodone 30 mg PO Q4H PRN PRN #72 tab 09/29/18 10/04/18 pantoprazole 40 mg PO BID@0730,2000 #60 tab 09/29/18 10/04/18 hydrocodone-acetaminophen [[place]] 1 tab PO Q6H #5 tab 10/04/18 Previous Rx's Medication Instructions Recorded acetaminophen [Mapap Extra 1,000 mg PO Q8H PRN PRN #0 tab 09/29/18 Strength] amlodipine 5 mg PO DAILY #30 tab 09/29/18 clonidine [Bksgllad-LHC-3] 0.1 mg TRANSDERMAL Q7D #4 ea 09/29/18 docusate sodium [Colace] 100 mg PO BID #60 cap 09/29/18 duloxetine [Cymbalta] 30 mg PO DAILY #14 cap 09/29/18 gabapentin 600 mg PO TID #90 cap 09/29/18 ibuprofen [IBU] 800 mg PO TID #30 tab 09/29/18 lidocaine [Lidoderm] 1 patch TOPICAL DAILY@1800 #14 ea 09/29/18 oxycodone 30 mg PO Q4H PRN PRN #72 tab 09/29/18 pantoprazole 40 mg PO BID@0730,2000 #60 tab 09/29/18 hydrocodone-acetaminophen [[place]] 1 tab PO Q6H #5 tab 10/04/18 Allergies Allergy/AdvReac Type Severity Reaction Status Date / Time No Known Allergies Allergy Unverified 10/04/18 11:32 General Stated Complaint: Orthopedic DEEPTI: 3 Review of Systems Review of Systems All systems reviewed & are unremarkable except as noted in HPI and below PFSH Social History Smoking and Tabacco status: Current every day Exam Narrative Exam Narrative: 1.Const: Well-nourished, Well-developed, appearing stated age 2.Eyes: PERRL, no conjunctival injection, and symmetrical lids. 3.ENT: Atraumatic external nose and ears. Moist MM. Neck: Symmetric, trachea midline, No thyromegaly. 4.CVS: +S1/S2, No murmurs or gallops. Peripheral pulses 2+ and equal in all extremities. Brisk capillary refill in all extremities. 5.RESP: Unlabored respiratory effort. Clear to auscultation bilaterally. No wheezes rales or rhonchi 6.GI: Soft, Nontender/Nondistended, No hepatosplenomegaly. No guarding or rebound. 7.MSK: Patient's left anterior thigh demonstrates an chronic open wound with well-healing granulomatous tissue, small amount of green/yellow discharge, no significant fluctuance that I can appreciate on exam. Patient is obese and large at baseline which makes her slightly more difficult. No associated numbness or tingling. No severe redness. 8.Skin: Warm, Dry. No rashes or lesions. 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 Sensation grossly intact, no focal neurologic deficits. 10.Psych: (AAO) x3. Appropriate mood and affect Course Vital Signs Temperature 36.2 C L 10/04/18 11:30 Pulse 90 10/04/18 11:30 Respiratory Rate 16 10/04/18 11:30 Blood Pressure 154/96 H 10/04/18 11:30 Pulse Oximetry 98 10/04/18 11:30 Temperature 36.2 C L 10/04/18 11:30 Temperature Source Skin 10/04/18 11:30 Pulse 90 10/04/18 11:30 Respiratory Rate 16 10/04/18 11:30 Respiratory Effort Non-Labored 10/04/18 11:30 Blood Pressure 154/96 H 10/04/18 11:30 Blood Pressure Position Sitting 10/04/18 11:30 Pulse Oximetry 98 10/04/18 11:30 Oxygen Delivery Method Room Air 10/04/18 11:30 Oxygen Flow Rate 0 10/04/18 11:30 Pain Level 8 10/04/18 11:30
[2018-10-04] MEDS: Acetaminophen 500 MG TAB 1000 MG PO (12:03)
[2018-10-04 12:56] LABS: Abs Immature Grans 0.03 k/cumm (0.0-0.09); Absolute Basophil Count 0.02 k/cumm (0.0-0.2); Absolute Eosinophil Count 0.06 k/cumm (0.0-0.7); Absolute Lymphocyte Count 2.45 k/cumm (1.2-3.4); Absolute Monocyte Count 0.74 k/cumm (0.11-0.7); Absolute Neutrophil Count 6.62 k/cumm (1.2-6.7); Basophils % 0.2; Eosinophils % 0.6; HCT 39.4 % (40.0-50.0); HGB 13.3 g/dL (13.5-17.5); Immature Grans % 0.3; Lymphocytes % 24.7; Mean Corp. HGB Concentration 33.8 g/dL (32.0-36.0); Mean Corpuscular Hemoglobin 26.9 pg (27.0-33.0); Mean Corpuscular Volume 79.8 fL (80-95); Mean Platelet Volume 9.3 fL (8.0-11.0); Monocytes % 7.5; Neutrophils % 66.7; Platelet Count 281 x1000/uL (130-400); RBC 4.94 m/cumm (4.50-6.00); RBC Distribution Width 14.2 % (11.8-14.1); White Blood Cell Count 9.92 k/cumm (4.4-10.8)
[2018-10-04 13:06] LABS: C-Reactive Protein 0.88 mg/dL (0.0-0.3)
[2018-10-04 13:12] LABS: ALT 18 U/L (12-78); AST 24 U/L (15-37); Albumin 3.8 g/dL (3.4-5.0); Alkaline Phosphatase 114 U/L (46-116); Anion Gap 11.4 mmol/L (3-11); BUN 18 mg/dL (7-18); Bilirubin, Total 0.2 mg/dL (0.2-1.0); CO2 25.6 mmol/L (21.0-32.0); Calcium 9.1 mg/dL (8.5-10.1); Chloride 105 mmol/L (98-107); Glucose 91 mg/dL (70-100); Potassium 3.2 mmol/L (3.5-5.1); Sodium 142 mmol/L (136-145); Total Protein 7.9 g/dL (6.4-8.2)
[2018-10-04] MEDS: MORPHine 10 MG/ML VIAL 4 MG IVP (13:25)
[2018-10-04 13:48] LABS: ESR 45 MM/HR (0-15)
== END 2018-10-04 15:15 | disposition home or self-care (01) ==
PROVIDERS: Emergency Provider Student in an Organized Health Care Education/Training Program; PCP Nurse Practitioner Family
DX: M25.552 Pain in left hip (principal); R68.89 Other general symptoms and signs
CPT/HCPCS: 36410; 36415; 80053; 85652; 87040; 96374; 99284; 85025; 86140; J2270

== ENCOUNTER → 2018-10-06 12:51 | Outpatient (BNVA) | payer MEDICARE, MEDICAID, SELFPAY | PROVIDERS: PCP Nurse Practitioner Family; Referring Provider Nurse Practitioner Family; Visit Provider Student in an Organized Health Care Education/Training Program | DX: K68.12 Psoas muscle abscess (principal) | CPT/HCPCS: 99213 ==

== ENCOUNTER 2018-10-11 08:46 | Outpatient (CLI) | payer MEDICARE, MEDICAID, SELFPAY ==
[2018-10-11 09:17] LABS: HCT 39.8 % (40.0-50.0); HGB 13.2 g/dL (13.5-17.5); Mean Corp. HGB Concentration 33.2 g/dL (32.0-36.0); Mean Corpuscular Volume 81.4 fL (80-95); Mean Platelet Volume 9.5 fL (8.0-11.0); Platelet Count 272 x1000/uL (130-400); RBC 4.89 m/cumm (4.50-6.00); RBC Distribution Width 14.1 % (11.8-14.1)
== END 2018-10-11 09:06 ==
PROVIDERS: PCP Nurse Practitioner Family; Visit Provider Student in an Organized Health Care Education/Training Program
DX: M86.9 Osteomyelitis, unspecified (principal); K68.12 Psoas muscle abscess; Z79.2 Long term (current) use of antibiotics
CPT/HCPCS: 36415; 85027; 99213; 86140

== ENCOUNTER → 2018-10-25 10:40 | Outpatient (BNVA) | payer MEDICARE, MEDICAID, SELFPAY | PROVIDERS: PCP Nurse Practitioner Family; Referring Provider Nurse Practitioner Family; Visit Provider Student in an Organized Health Care Education/Training Program | DX: K68.12 Psoas muscle abscess (principal); Z98.890 Other specified postprocedural states | CPT/HCPCS: 99213 ==

== ENCOUNTER 2018-11-07 08:59 | Emergency (ER) | payer MEDICARE, MEDICAID, SELFPAY ==
[2018-11-07 09:15] VITALS: BP 162/100; PULSE 75; RESP 16; TEMP 36.6; O2SAT 94
--- NOTE | 2018-11-07 09:17 | NUR.NOTE ---
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 pt presents today with 6/10 new onset lower back pain as well as nausea and vomiting. pt states that he currently has an infection in his back and was prescribed antibiotics however he chose to stop taking those yesterday as they were upsetting his stomach
[2018-11-07 09:58] LABS: Lactate-non-spesis 1.1 mmol/l (0.6-1.4)
[2018-11-07 10:04] LABS: HGB 12.1 g/dL (13.5-17.5); Mean Corp. HGB Concentration 31.8 g/dL (32.0-36.0); Mean Corpuscular Hemoglobin 26.1 pg (27.0-33.0); Mean Corpuscular Volume 82.1 fL (80-95); Platelet Count 301 x1000/uL (130-400); RBC 4.63 m/cumm (4.50-6.00); RBC Distribution Width 14.2 % (11.8-14.1); White Blood Cell Count 7.83 k/cumm (4.4-10.8)
[2018-11-07 10:20] LABS: ALT 26 U/L (12-78); AST 25 U/L (15-37); Albumin 3.5 g/dL (3.4-5.0); Alkaline Phosphatase 115 U/L (46-116); Anion Gap 8.3 mmol/L (3-11); BUN 13 mg/dL (7-18); Bilirubin, Total 0.3 mg/dL (0.2-1.0); CO2 30.7 mmol/L (21.0-32.0); CREATININE 0.97 mg/dL (0.70-1.30); Calcium 8.9 mg/dL (8.5-10.1); Chloride 101 mmol/L (98-107); Glucose 121 mg/dL (70-100); Potassium 3.6 mmol/L (3.5-5.1); Sodium 140 mmol/L (136-145); Total Protein 7.9 g/dL (6.4-8.2)
[2018-11-07] MEDS: Normal Saline 1,000 ML 1000 ML IV (10:54)
--- NOTE | 2018-11-07 11:08 | ED.GENADUL_ITS ---
Discharge Plan Disposition Patient Disposition: AGAINST MEDICAL ADVICE Condition: Stable Discharge Details Chief Complaint: Nk/Back Pain Clinical Impression: Acute exacerbation of chronic low back pain, Leg pain, bilateral, Bilateral leg weakness Primary Care Provider: Ashely Mueller ED Provider: Neida Stephens Home Meds and New Rx's Prescriptions: Continued oxycodone 15 mg tablet 15 - 30 mg PO Q4H PRN MDD 180mg PRN (Reason: pain) Qty: 60 RF: 0 clonidine [Tnnldflt-LQW-1] 0.1 mg/24 hr Patch Weekly 0.1 mg Transdermal Q7D Qty: 4 RF: 0 ibuprofen [IBU] 800 mg Tablet 800 mg PO TID Qty: 30 RF: 0 amlodipine 5 mg Tablet 5 mg PO DAILY Qty: 30 RF: 0 acetaminophen [Mapap Extra Strength] 500 mg Tablet 1,000 mg PO Q8H PRN PRNQty: 0 RF: 0 lidocaine [Lidoderm] 5 % Adhesive Patch,Medicated 1 patch topical DAILY@1800 Qty: 14 RF: 0 docusate sodium [Colace] 100 mg Capsule 100 mg PO BID Qty: 60 RF: 0 gabapentin 300 mg Capsule 600 mg PO TID Qty: 90 RF: 0 duloxetine [Cymbalta] 30 mg Capsule,Delayed Release(Dr/Ec) 30 mg PO DAILY Qty: 14 RF: 0 pantoprazole 40 mg Tablet,Delayed Release (Dr/Ec) 40 mg PO BID@0730,2000 Qty: 60 RF: 0 hydrocodone-acetaminophen [[place]] 7.5-325 mg tablet 1 tab PO Q6H Qty: 5 RF: 0 Discharge Instructions Instructions: Lumbar Radiculopathy (ED), Back Pain (ED), Leg Pain (ED) Additional Instructions: You are leaving AGAINST MEDICAL ADVICE. We do not yet have the results of your CAT scan and so therefore I am unsure if you have a life-threatening or life altering diagnosis of your symptoms today. Call Dr. Restrepo's office tomorrow to schedule follow-up appointment for reevaluation. Follow-up with Susan and [facility] [[email or web address]] as directed. Return immediately to the emergency department with any worsening or new concerning symptoms. Discharge Data Discharge Physician: Neida Stephens Medical Decision Making 43-year-old male with history of former IV drug abuse, former alcohol abuse, TBI, hepatitis C, PTSD, anxiety, traumatic brain injury, and bipolar disorder who has had a recently prolonged course with antibiotics for a left iliopsoas abscess and myositis who presents with acute on chronic lower back pain with lumbar radiculopathy over the past 2 days. Patient has multiple complaints. He states his iliopsoas abscess and infection has recently spread to his lower back. He is also complaining of vomiting and abdominal pain for the past 2 days. He also stated he awoke with urine and stool in his underwear this morning as well as sensation of numbness in his perineum today. He has been followed by Dr. Restrepo, [facility] and most recently [facility] [[email or web address]] for his left iliopsoas abscess. He had been most recently taking cefadroxil per [facility] [[email or web address]] but stopped this due to GI upset. Blood pressure hypertensive, remainder vitals within normal limits. Afebrile. Patient appears nontoxic. He is ambulatory around the ED multiple times to the bathroom. No focal deficits on exam. Neurovascularly intact. Abdomen soft and minimally tender in suprapubic region. Normal sensation to perineum. Labs obtained on arrival and unremarkable. Normal white blood cell count. Normal electrolytes. Lactate normal. After evaluation, a CT abdomen and pelvis and lumbar spine with contrast ordered to assess for abscess. Prior to obtaining results of CT, patient is requesting to leave. He states he cannot wait for the results any longer. Patient was in the ED during a medical surge and multiple critical patients in the ED but labs were drawn shortly after patient arrival and we are still waiting on CT results. Discussed with patient that due to his symptoms above, concerned about possible cauda equina syndrome with need for possible transfer to a tertiary facility for evaluation and MRI. I discussed with patient that it is reassuring that he is ambulatory and has no focal deficits on exam, but his complaints would be concerning for an acute neurological process. Also discussed that his lab work is reassuring with a normal white blood cell count and normal lactate. I encouraged patient to stay for his imaging results but he is declining. The risks of and disability due to a serious pathology were explained to patient he understands and is requesting to leave. AMA form signed. He demonstrates capacity to make decisions. Patient states he plans to call Dr. Restrepo's office tomorrow for reevaluation. He is instructed return here immediately with any worsening or new concerning symptoms. Patient left before being given his discharge paperwork. The paperwork will be mailed to his residence. Medical Records Medical records reviewed: Yes I reviewed the patient's medical records. Imaging Data Radiologic Study: Radiologist's impression: CT Abdomen and Pelvis With Contrast EXAM DATE/TIME: 11/07/2018 11:08 AM FINDINGS: Prior appendectomy. Inhomogeneity and thickening of the left psoas muscle unchanged from the prior exam suggesting a prior hematoma. This extends into the left groin although the left groin is not as well-seen as on the prior study. No definite contrast extravasation is seen. No focal inflammatory process. Prior laminectomy and fusion of the lumbar spine unchanged. No evidence of bowel obstruction. No obstructive uropathy. No evidence of acute fracture. IMPRESSION: No significant interval change from the prior examination as outlined above with no specific etiology identified for the patient's symptoms. Lab Data Lab results reviewed: Yes I reviewed the patient's lab results. 11/07/18 10:30 Blood Blood Culture - Pending 11/07/18 10:20 Blood Blood Culture - Pending Laboratory Tests Range/Units 11/07/18 11/07/18 11/07/18 09:50 09:50 09:50 WBC (4.4-10.8) k/cumm 7.83 RBC (4.50-6.00) m/cumm 4.63 Hgb (13.5-17.5) g/dL 12.1 L Hct (40.0-50.0) % 38.0 L MCV (80-95) fL 82.1 MCH (27.0-33.0) pg 26.1 L MCHC (32.0-36.0) g/dL 31.8 L RDW (11.8-14.1) % 14.2 H Plt Count (130-400) x1000/uL 301 MPV (8.0-11.0) fL 9.0 Sodium (136-145) mmol/L 140 Potassium (3.5-5.1) mmol/L 3.6 Chloride (98-107) mmol/L 101 Carbon Dioxide (21.0-32.0) mmol/L 30.7 Anion Gap (3-11) mmol/L 8.3 BUN (7-18) mg/dL 13 Creatinine (0.70-1.30) mg/dL 0.97 Estimated GFR/1.73 m2 (mL/min/1.73m2) >= 60.00 Glucose (70-100) mg/dL 121 H Lactate (0.6-1.4) mmol/l 1.1 Calcium (8.5-10.1) mg/dL 8.9 Total Bilirubin (0.2-1.0) mg/dL 0.3 AST (15-37) U/L 25 ALT (12-78) U/L 26 Alkaline Phosphatase (46-116) U/L 115 Total Protein (6.4-8.2) g/dL 7.9 Albumin (3.4-5.0) g/dL 3.5 HPI General Mode of arrival: ambulatory . Date/Time Provider Initiated Documentation: 11/07/18 09:20 . Limitations to Documentation: no limitations . Information obtained by: patient . HPI Narrative: Pt is a 43yo M w/ a prolonged course of antibiotics for a L iliopsoas abscess and myositis with history of CT-guided drain placement with MSSA + cultures who has been followed at [facility] and by Dr. Restrepo who presents with acute worsening of lower back pain for the past 2 days. He also admits to radiation of pain, tingling and weakness in both legs. He states when he awoke this morning he noted some urine and stool in his underwear. He states he has been able to urinate normally since then. He states he had a temperature of 100.3 at 730 this morning for which she took Tylenol and Motrin. He states he has seen Dr. Restrepo recently for his chronic hip and back pain associated with his chronic iliopsoas abscess and expressed that he was not happy with his care at [facility] and was referred for a second opinion at [facility] [[email or web address] Patient states he saw [facility] [[email or web address]] last week and they stopped his rifampin and cefadroxil. He states he stopped this for 4 days and then re-started his cefadroxil 2 days ago. He states he can stop the cefadroxil because of GI upset. Also admits to vomiting and abdominal pain for the past 2 days. He states he vomited twice yesterday and once today but denies any bleeding. He denies any diarrhea. He states his abdominal pain is diffuse but worse in the extremity and lower abdomen. He also admits to numbness in the area between his scrotum and rectum. Patient states he has been able to ambulate. Related Data Home Medications Medication Instructions Recorded Confirmed acetaminophen [Mapap Extra 1,000 mg PO Q8H PRN PRN #0 tab 09/29/18 10/25/18 Strength] amlodipine 5 mg PO DAILY #30 tab 09/29/18 10/25/18 clonidine [Btgqaicw-KPY-5] 0.1 mg TRANSDERMAL Q7D #4 ea 09/29/18 10/25/18 docusate sodium [Colace] 100 mg PO BID #60 cap 09/29/18 10/25/18 duloxetine [Cymbalta] 30 mg PO DAILY #14 cap 09/29/18 10/25/18 gabapentin 600 mg PO TID #90 cap 09/29/18 10/25/18 ibuprofen [IBU] 800 mg PO TID #30 tab 09/29/18 10/25/18 lidocaine [Lidoderm] 1 patch TOPICAL DAILY@1800 #14 ea 09/29/18 10/25/18 pantoprazole 40 mg PO BID@07,1999 #60 tab 09/29/18 10/25/18 hydrocodone-acetaminophen [[place]] 1 tab PO Q6H #5 tab 10/04/18 10/25/18 oxycodone 15 mg tablet 15 - 30 mg PO Q4H PRN PRN #60 tab 10/29/18 MDD 180mg Previous Rx's Medication Instructions Recorded acetaminophen [Mapap Extra 1,000 mg PO Q8H PRN PRN #0 tab 09/29/18 Strength] amlodipine 5 mg PO DAILY #30 tab 09/29/18 clonidine [Cfvqlekv-ILZ-5] 0.1 mg TRANSDERMAL Q7D #4 ea 09/29/18 docusate sodium [Colace] 100 mg PO BID #60 cap 09/29/18 duloxetine [Cymbalta] 30 mg PO DAILY #14 cap 09/29/18 gabapentin 600 mg PO TID #90 cap 09/29/18 ibuprofen [IBU] 800 mg PO TID #30 tab 09/29/18 lidocaine [Lidoderm] 1 patch TOPICAL DAILY@1800 #14 ea 09/29/18 pantoprazole 40 mg PO BID@0730,1999 #60 tab 09/29/18 hydrocodone-acetaminophen [[place]] 1 tab PO Q6H #5 tab 10/04/18 oxycodone 15 mg tablet 15 - 30 mg PO Q4H PRN PRN #60 tab 10/29/18 MDD 180mg Allergies Allergy/AdvReac Type Severity Reaction Status Date / Time No Known Allergies Allergy Unverified 11/07/18 09:22 General Stated Complaint: Nk/Back Pain DEEPTI: 3 Review of Systems Review of Systems All systems reviewed & are unremarkable except as noted in HPI and below Constitutional Reports as per HPI, Denies chills and Denies fever(s) Eyes Denies blurry vision ENT Denies dizziness, Denies sore throat and Denies throat swelling Cardiovascular Denies chest pain and Denies dyspnea Respiratory Denies cough and Denies dyspnea Gastrointestinal Reports abdominal pain, Denies diarrhea and Reports vomiting Genitourinary Denies hematuria and Denies dysuria Musculoskeletal Reports back pain and Reports numbness Integumentary/Breasts Denies lesions and Denies rash Neurologic Denies dizziness, Reports focal weakness and Reports numbness Allergic/Immunologic Denies throat swelling [facility] Medical History Affective personality disorder (Chronic) Anxiety (Chronic) Bipolar 2 disorder (Chronic) Depression (Chronic) GERD (gastroesophageal reflux disease) (Chronic) HTN (hypertension) (Chronic) Hepatitis C (Chronic) History of alcohol abuse (Chronic) History of intravenous drug abuse (Chronic) Hyperlipidemia (Chronic) Kidney stones (Chronic) PTSD (post-traumatic stress disorder) (Chronic) TBI (traumatic brain injury) (Chronic) Surgical History Appendectomy Colonoscopy - MAC (11/14/16) EGD - MAC (11/14/16) Rotator Cuff Repair Spinal Fusion Vasectomy Social History Smoking/Tobacco Use Status: Current every day Tobacco Type: cigarettes Alcohol Intake: never Drug use: Never Substance use type: does not use Do you feel safe at home: Yes Do you feel safe in your relationship?: Yes Exam Const General: cooperative and no acute distress HENMT Head: normal to inspection Face and sinus: normal facial exam Eyes General: appearance normal, both eyes and all related structures EOM: EOM intact bilaterally Neck Neck: normal visual inspection and No submandibular swelling Lymphatic: no lymphadenopathy noted Chest Chest: normal inspection of the chest and no tenderness Resp Effort & Inspection: normal respiratory effort and able to speak in complete sentences Auscultation: clear to auscultation bilaterally Cardio Rate: regular rate Rhythm: regular rhythm GI Inspection: normal to inspection Palpation: soft, not firm, not rigid and tender suprapubicly Auscultation: normal bowel sounds Male General Exam: Yes normal external exam Other: Normal sensation to perineum Back/Spine/Pelvis Thoracic/Lumbar Spine: No straight leg raise negative bilaterally, thoracic spinal tenderness, lumbar spinal tenderness and other (Midline lower thoracic upper lumbar surgical scar, well-healed) Pelvis: no pain with anterior-posterior compression Skin General skin exam: no rashes or lesions noted Full body images: 1. Approximate 4 x 6 cm open wound with healing granulation tissue. Yellowish discharge within center and on gauze. No surrounding erythema, fluctuance or induration. Neuro General: alert, awake and oriented x3 Cognition: normal cognition Speech: speech normal Motor: muscle tone normal throughout and strength 5/5 throughout Sensory Exam: no sensory deficits noted DTR's: Rt Patellar: 2+, Lt Patellar: 2+, Rt Ankle: 2+ and Lt Ankle: 2+ Plantar Reflexes: Equivocal: bilateral Extrem General: normal to inspection, full ROM and no edema Psych Appearance: grossly normal Mental Status: mental status grossly normal Speech and Movement: speech and movement normal Affect: normal affect Course Vital Signs Temperature 97.9 F 11/07/18 09:15 Pulse 75 11/07/18 09:15 Respiratory Rate 16 11/07/18 09:15 Blood Pressure 162/100 H 11/07/18 09:15 Pulse Oximetry 94 L 11/07/18 09:15 Temperature 97.9 F 11/07/18 09:15 Temperature Source Tympanic 11/07/18 09:15 Pulse 75 11/07/18 09:15 Respiratory Rate 16 11/07/18 09:15 Respiratory Effort 11/07/18 09:23 Blood Pressure 162/100 H 11/07/18 09:15 Blood Pressure Position Sitting 11/07/18 09:15 Pulse Oximetry 94 L 11/07/18 09:15 Oxygen Delivery Method Room Air 11/07/18 09:15 Oxygen Flow Rate 0 11/07/18 09:15 Pain Level 6 11/07/18 09:15 Lab/Test Results Lab/Test Results: 11/07/18 10:30 Blood Blood Culture - Pending 11/07/18 10:20 Blood Blood Culture - Pending Laboratory Tests Range/Units 11/07/18 11/07/18 11/07/18 09:50 09:50 09:50 WBC (4.4-10.8) k/cumm 7.83 RBC (4.50-6.00) m/cumm 4.63 Hgb (13.5-17.5) g/dL 12.1 L Hct (40.0-50.0) % 38.0 L MCV (80-95) fL 82.1 MCH (27.0-33.0) pg 26.1 L MCHC (32.0-36.0) g/dL 31.8 L RDW (11.8-14.1) % 14.2 H Plt Count (130-400) x1000/uL 301 MPV (8.0-11.0) fL 9.0 Sodium (136-145) mmol/L 140 Potassium (3.5-5.1) mmol/L 3.6 Chloride (98-107) mmol/L 101 Carbon Dioxide (21.0-32.0) mmol/L 30.7 Anion Gap (3-11) mmol/L 8.3 BUN (7-18) mg/dL 13 Creatinine (0.70-1.30) mg/dL 0.97 Estimated GFR/1.73 m2 (mL/min/1.73m2) >= 60.00 Glucose (70-100) mg/dL 121 H Lactate (0.6-1.4) mmol/l 1.1 Calcium (8.5-10.1) mg/dL 8.9 Total Bilirubin (0.2-1.0) mg/dL 0.3 AST (15-37) U/L 25 ALT (12-78) U/L 26 Alkaline Phosphatase (46-116) U/L 115 Total Protein (6.4-8.2) g/dL 7.9 Albumin (3.4-5.0) g/dL 3.5
[2018-11-07] MEDS: Omnipaque 350 MG/ML 100 ML BTL IJ (11:25)
--- NOTE | 2018-11-07 11:30 | DI.CT_ITS ---
SYMPTOM/DIAGNOSIS: LOW BACK INFECTION, H/O SPINAL FUSION, DIFFUSE ABD PAIN. H/O PSOAS ABSCESS ABDOMEN AND PELVIC CT AND CT RECONSTRUCTIONS OF THE LUMBAR SPINE: Comparison examination is 08/08/18. The visualized lung bases are clear. The liver is normal in size. No suspicious hepatic mass is seen. The portal, superior mesenteric and splenic veins are patent. The gallbladder is negative. There is no biliary ductal dilatation. The pancreas, spleen and adrenal glands are unremarkable. The kidneys show normal and symmetric enhancement. No evidence of a solid renal mass or obstruction. The urinary bladder is intact. Reproductive organs are unremarkable. The bowel shows no evidence of obstruction or inflammation. There is atherosclerosis of the abdominal aorta but no aneurysmal dilatation is seen. No significant abdominal or pelvic ascites or pneumoperitoneum is present. There are mildly enlarged lymph nodes again seen in the left iliac and inguinal region. These appear stable. There has been interval decrease in size of the fluid collection along the left ileopsoas muscle. No new retroperitoneal fluid collection is identified. There are again seen post surgical changes in the spine of prior L 3-4 and L 4-5 laminectomies with L 3-4 and L 4-5 fusion. Posterior spinal rods appear unremarkable. No acute fracture or dislocation is seen. Degenerative changes are seen throughout the lower thoracic and lumbar spine. IMPRESSION: 1. No evidence of an acute abdomen or pelvis. 2. Interval decrease in size of the left retroperitoneal fluid collection since 08/08/18. 3. No acute abnormality is seen in the lumbar spine. Post laminectomy and fusion changes are seen at L 3-4 and L 4-5.
[2018-11-07] MEDS: Normal Saline Flush 10 ML SYR IVP (11:54)
--- NOTE | 2018-11-07 12:20 | NUR.NOTE ---
at approximately 1200 Rn walked into room and PT stated. im leaving i don't want this IV i don't want to be here its just to much i have waited way to long. so i need you to pull this out right now so i can leave pt had already disconnected his IV himself. RN explained to PT what he had been wating for, lab and Vrad, however PT insisted that the wait was unessicary stating. theres no reason to make me wait and no reason this should take as long as it is that dosnt make any sense i had antibiotics for 4 months and they did not even make me have an IV for that long then so theres no reason you need to do that you all don't know what your doing. RN notified prodder and prepared AMA sheet. risks of leaving without final diagnosis explained to PT, PT instructed to restart the antibiotic that had been prescribed to him. PT stated i dont need to take that RN asked PT to reexplain risks to that RN could conferm PT understood PT refused. risks were explaing to PT by both RN and provider
--- NOTE | 2018-11-07 12:36 | NUR.NOTE ---
post CT PT refused vitals
--- NOTE | 2018-11-07 13:19 | DI.VRAD_ITS ---
EXAM: CT Abdomen and Pelvis With Contrast EXAM DATE/TIME: 11/07/2018 11:08 AM CLINICAL HISTORY: 43 years old, male; Signs and symptoms; Other: Lower ack infection, h/o spinal fusion, R/O abscess, disc herniation; Prior surgery; Surgery date: 6+ months; Surgery type: Spinal fusion surgery; Patient HX: H/o psoas abscess w/extension to back, R/O abcess; Additional info: Lumbar recons are in the abdomen \T\ pelvis exam. Please read both the abdomen \T\ pelvis and the lumbar spine. Thank you TECHNIQUE: Imaging protocol: Axial computed tomography images of the abdomen and pelvis with intravenous contrast. Coronal and sagittal reformatted images were created and reviewed. Radiation optimization: All CT scans at this facility use at least one of these dose optimization techniques: automated exposure control; mA and/or kV adjustment per patient size (includes targeted exams where dose is matched to clinical indication); or iterative reconstruction. COMPARISON: CT ABDOMEN PELVIS W 08/08/2018 8:37 AM FINDINGS: Prior appendectomy. Inhomogeneity and thickening of the left psoas muscle unchanged from the prior exam suggesting a prior hematoma. This extends into the left groin although the left groin is not as well-seen as on the prior study. No definite contrast extravasation is seen. No focal inflammatory process. Prior laminectomy and fusion of the lumbar spine unchanged. No evidence of bowel obstruction. No obstructive uropathy. No evidence of acute fracture. IMPRESSION: No significant interval change from the prior examination as outlined above with no specific etiology identified for the patient's symptoms. Dictated and Authenticated by: Nino Rand MD. Ordering:SHILPI Carrasquillo MD
--- NOTE | 2018-11-08 09:53 | PDOC.ERCMPRO ---
Care Management Progress Note 11/08-Jason presented to the emergency department for neck and back pain. Refused IV and fluids. Patient did not want to wait for the results of his CT Scan. This CM called Jason this morning and left a message on his voice mail to call if he needed any assistance.
== END 2018-11-07 12:21 | disposition left against medical advice (07) ==
PROVIDERS: Emergency Provider Physician Assistant; PCP Nurse Practitioner Family
DX: M54.5 Low back pain (principal); M79.604 Pain in right leg; M79.605 Pain in left leg; I10 Essential (primary) hypertension
CPT/HCPCS: 36410; 36415; 80053; 85027; 87040; 96360; 99285; 74177; 83605; 99284; J3490

== ENCOUNTER → 2018-11-08 13:18 | Outpatient (BNVA) | payer MEDICARE, MEDICAID, SELFPAY | PROVIDERS: PCP Nurse Practitioner Family; Referring Provider Nurse Practitioner Family; Visit Provider Student in an Organized Health Care Education/Training Program | DX: K68.12 Psoas muscle abscess (principal) | CPT/HCPCS: 99213 ==

== ENCOUNTER 2018-11-10 09:20 | Outpatient (CLI) | payer MEDICARE, MEDICAID, SELFPAY ==
[2018-11-10 10:39] LABS: C-Reactive Protein 2.97 mg/dL (0.0-0.3)
[2018-11-10 10:56] LABS: ESR 56 MM/HR (0-15)
== END 2018-11-10 09:40 ==
PROVIDERS: PCP Nurse Practitioner Family; Visit Provider Student in an Organized Health Care Education/Training Program
DX: K68.12 Psoas muscle abscess (principal)
CPT/HCPCS: 36415; 85652; 86140

== ENCOUNTER 2018-11-11 14:29 | Inpatient (IN) | payer MEDICARE, MEDICAID, SELFPAY ==
[2018-11-11 14:41] VITALS: BP 171/97; PULSE 80; TEMP 36.3; O2SAT 95
--- NOTE | 2018-11-11 14:55 | W.ED.GENAD ---
Discharge Plan Disposition Patient Disposition: [facility] INPATIENT Condition: Stable Discharge Details Chief Complaint: Cellulitis Clinical Impression: Iliopsoas abscess on left, Back pain, Fever and chills Admit Date/Time: 11/11/18 19:10 Admit Provider: Natanael Restrepo Attending Provider: Natanael Restrepo Primary Care Provider: Ashely Mueller ED Provider: Neida Stephens Discharge Data Discharge Date/Time-TO BE ENTERED AT DEPARTURE: 11/11/18 20:34 Medical Decision Making 43-year-old male with history of former IV drug abuse, former alcohol abuse, TBI, hepatitis C, PTSD, anxiety, traumatic brain injury, and bipolar disorder who has had a recently prolonged course with antibiotics for a left iliopsoas abscess and myositis who presents with persistent lower back pain, left hip pain, fever, chills, vomiting and lower abdominal pain over the past few weeks. Patient was seen here 4 days ago for the same complaint and left AMA. Dr. Restrepo had called notifying us of patient's likely impending arrival to the emergency department for the above complaints. Patient had been found recently to have possible extension of abscess into L3 and L4. Per discussion with Dr. Restrepo, his CRP and ESR in the office yesterday and they were increasing. Would like patient to be evaluated here with basic labs and consider for transfer to [facility] where patient has recently transitioned his care from [facility]. Discussed with Dr. Restrepo again after patient arrival and he has been in connection with [facility] transfer center and there are currently no beds there. He is recommending admission here for observation due to his symptoms. Discussed with hospitalist and does not feel comfortable with admission here as patient may require possible MRI of his lower back or consideration for IR drainage if found to be appropriate. An MRI lumbar spine with and without contrast from 10/15/18 noted extensive abnormal edema and enhancement involving the insertions of the iliopsoas musculature at L3 and L4 bilaterally without definite associated marrow abnormality. An MRI left hip with and without contrast from 10/15/18 which noted left groin open wound which connects to a long fistulous tract that travels cephalad along the left iliac is muscle crosses to the right at L5 and into the small right paraspinous collection (sterile or infected) at L3 vertebral body. Normal marrow signal. No left hip effusion or synovial enhancement. Labs reviewed and unremarkable. Normal white blood cell count, lactate, electrolytes. Patient hemodynamically stable, appears nontoxic, afebrile. 172 --discussed with [facility] transfer center -they will page hospitalist. 1744 --labs and imaging reviewed and unremarkable. Normal white blood cell count, electrolytes and lactate. Review of CRP from yesterday was 2.97, increased from 2.4 and ESR 56, increased from 45 1830 --d/w [facility] hospitalist -as patient is hemodynamically stable, with normal labs, do not see an indication for transfer. They have no available beds and do not see an indication for him to wait in the emergency department there until bed available in the next 24-48 hours. The hospitalist states that per their infectious disease Dr. Melita Blanc, she had recommended an outpatient MRI for reassessment of the fluid collection. It may be possibly quicker to obtain an MRI here at [facility] tomorrow if patient admitted here overnight and then can consult Dr. Blanc with results if needed and transfer if indicated. 1854 -- d/w Dr. Restrepo - accepts pt for admission. Medical Records Medical records reviewed: Yes I reviewed the patient's medical records. Lab Data Lab results reviewed: Yes I reviewed the patient's lab results. Laboratory Tests Range/Units 11/11/18 11/11/18 11/11/18 15:50 15:50 15:50 WBC (4.4-10.8) k/cumm 9.02 RBC (4.50-6.00) m/cumm 4.72 Hgb (13.5-17.5) g/dL 12.2 L Hct (40.0-50.0) % 38.3 L MCV (80-95) fL 81.1 MCH (27.0-33.0) pg 25.8 L MCHC (32.0-36.0) g/dL 31.9 L RDW (11.8-14.1) % 14.7 H Plt Count (130-400) x1000/uL 302 MPV (8.0-11.0) fL 9.2 Immature Gran % 0.2 Neutrophils % 67.9 Lymphocytes % 23.7 Monocytes % 5.5 Eosinophils % 2.5 Basophils % 0.2 Absolute Neutrophils (1.2-6.7) k/cumm 6.11 Absolute Lymphocytes (1.2-3.4) k/cumm 2.14 Absolute Monocytes (0.11-0.7) k/cumm 0.50 Absolute Eosinophils (0.0-0.7) k/cumm 0.23 Absolute Basophils (0.0-0.2) k/cumm 0.02 Sodium (136-145) mmol/L 139 Potassium (3.5-5.1) mmol/L 3.6 Chloride (98-107) mmol/L 101 Carbon Dioxide (21.0-32.0) mmol/L 29.0 Anion Gap (3-11) mmol/L 9.0 BUN (7-18) mg/dL 15 Creatinine (0.70-1.30) mg/dL 1.08 Estimated GFR/1.73 m2 (mL/min/1.73m2) >= 60.00 Glucose (70-100) mg/dL 96 Lactate (0.6-1.4) mmol/l 1.0 Calcium (8.5-10.1) mg/dL 9.1 Total Bilirubin (0.2-1.0) mg/dL 0.3 AST (15-37) U/L 25 ALT (12-78) U/L 28 Alkaline Phosphatase (46-116) U/L 123 H Total Protein (6.4-8.2) g/dL 8.0 Albumin (3.4-5.0) g/dL 3.6 HPI General Mode of arrival: ambulatory. Date/Time Provider Initiated Documentation: 11/11/18 14:54. Limitations to Documentation: no limitations. Information obtained by: patient. HPI Narrative: Pt is a 43-year-old male with history of former IV drug abuse, former alcohol abuse, TBI, hepatitis C, PTSD, anxiety, traumatic brain injury, and bipolar disorder who has had a recently prolonged course with antibiotics for a left iliopsoas abscess and myositis who presents with persistent lower back pain, left hip pain, fever, chills, vomiting and lower abdominal pain. States he has had the chronic ongoing back pain and left hip pain for several months but states that the vomiting and abdominal pain has been occurring for the last week. He is states the fever and chills have been ongoing for weeks but worse over the past few days. T-max 2 days ago at 102. He states he has been seen by Dr. Restrepo, [facility] as well as [facility] for this iliopsoas abscess. He states most recently [facility] had changed his antibiotics to doxycycline. He states he feels that the antibiotics of the cause of his vomiting and abdominal pain. He states he has been drinking normally but eating less than usual. He admits to an episode of possible urinary and fecal incontinence 4 days ago but not since then. He states he has been urinating normally and denies any diarrhea. Related Data Home Medications Medication Instructions Recorded Confirmed acetaminophen [Mapap Extra 1,000 mg PO Q8H PRN PRN #0 tab 09/29/18 11/11/18 Strength] amlodipine 5 mg PO DAILY #30 tab 09/29/18 11/11/18 clonidine [Axaodsbn-JPC-0] 0.1 mg TRANSDERMAL Q7D #4 ea 09/29/18 11/11/18 docusate sodium [Colace] 100 mg PO BID #60 cap 09/29/18 11/11/18 duloxetine [Cymbalta] 30 mg PO DAILY #14 cap 09/29/18 11/11/18 gabapentin 600 mg PO TID #90 cap 09/29/18 11/11/18 ibuprofen [IBU] 800 mg PO TID #30 tab 09/29/18 11/11/18 lidocaine [Lidoderm] 1 patch TOPICAL DAILY@1800 #14 ea 09/29/18 11/11/18 pantoprazole 40 mg PO BID@0730,2000 #60 tab 09/29/18 11/11/18 hydrocodone-acetaminophen [[place]] 1 tab PO Q6H #5 tab 10/04/18 11/11/18 oxycodone 15 mg tablet 15 - 30 mg PO Q4H PRN PRN #60 tab 10/29/18 11/11/18 MDD 180mg Previous Rx's Medication Instructions Recorded acetaminophen [Mapap Extra 1,000 mg PO Q8H PRN PRN #0 tab 09/29/18 Strength] amlodipine 5 mg PO DAILY #30 tab 09/29/18 clonidine [Uupbbhxp-DJY-4] 0.1 mg TRANSDERMAL Q7D #4 ea 09/29/18 docusate sodium [Colace] 100 mg PO BID #60 cap 09/29/18 duloxetine [Cymbalta] 30 mg PO DAILY #14 cap 09/29/18 gabapentin 600 mg PO TID #90 cap 09/29/18 ibuprofen [IBU] 800 mg PO TID #30 tab 09/29/18 lidocaine [Lidoderm] 1 patch TOPICAL DAILY@1800 #14 ea 09/29/18 pantoprazole 40 mg PO BID@0730,2000 #60 tab 09/29/18 hydrocodone-acetaminophen [[place]] 1 tab PO Q6H #5 tab 10/04/18 oxycodone 15 mg tablet 15 - 30 mg PO Q4H PRN PRN #60 tab 10/29/18 MDD 180mg Allergies Allergy/AdvReac Type Severity Reaction Status Date / Time No Known Allergies Allergy Unverified 11/11/18 15:54 General Stated Complaint: Orthopedic DEEPTI: 3 Review of Systems Review of Systems All systems reviewed & are unremarkable except as noted in HPI and below Constitutional Reports as per HPI, Reports chills and Reports fever(s) Eyes Denies blurry vision ENT Denies dizziness, Denies sore throat and Denies throat swelling Cardiovascular Denies chest pain and Denies dyspnea Respiratory Denies cough and Denies dyspnea Gastrointestinal Reports abdominal pain, Denies diarrhea and Reports vomiting Genitourinary Denies hematuria and Denies dysuria Musculoskeletal Reports back pain and Denies numbness Integumentary/Breasts Denies lesions and Denies rash Neurologic Denies dizziness, Denies focal weakness and Denies numbness Allergic/Immunologic Denies throat swelling PFSH Medical History Affective personality disorder (Chronic) Anxiety (Chronic) Bipolar 2 disorder (Chronic) Depression (Chronic) GERD (gastroesophageal reflux disease) (Chronic) HTN (hypertension) (Chronic) Hepatitis C (Chronic) History of alcohol abuse (Chronic) History of intravenous drug abuse (Chronic) Hyperlipidemia (Chronic) Kidney stones (Chronic) PTSD (post-traumatic stress disorder) (Chronic) TBI (traumatic brain injury) (Chronic) Surgical History Appendectomy Colonoscopy - MAC (11/14/16) EGD - MAC (11/14/16) Rotator Cuff Repair Spinal Fusion Vasectomy Social History Smoking/Tobacco Use Status: Current every day Tobacco Type: cigarettes Alcohol Intake: never Drug use: Never Substance use type: does not use Do you feel safe at home: Yes Do you feel safe in your relationship?: Yes Exam Const General: cooperative, healthy appearing and no acute distress HENMT Head: normal to inspection Face and sinus: normal facial exam Eyes General: appearance normal, both eyes and all related structures Pupils: PERRL EOM: EOM intact bilaterally Neck Neck: normal visual inspection and No submandibular swelling Lymphatic: no lymphadenopathy noted Chest Chest: normal inspection of the chest and no tenderness Resp Effort & Inspection: normal respiratory effort and able to speak in complete sentences Auscultation: clear to auscultation bilaterally Cardio Rate: regular rate Rhythm: regular rhythm GI Inspection: normal to inspection Palpation: soft, not firm, not rigid and nontender Auscultation: normal bowel sounds Male General Exam: Yes normal external exam Back/Spine/Pelvis Thoracic/Lumbar Spine: other (Tenderness midline lumbar spine with healed surgical scar, no infection) Sacrum: no erythema, no swelling and no tenderness Skin General skin exam: no rashes or lesions noted Neuro General: alert, awake, oriented x3, moves all extremities, no meningeal signs and no focal motor deficits Cognition: normal cognition Speech: speech normal Motor: muscle tone normal throughout and strength 5/5 throughout Sensory Exam: no sensory deficits noted Extrem General: normal to inspection, full ROM, normal capillary refill, no calf tenderness bilaterally and no edema Psych Appearance: grossly normal Mental Status: mental status grossly normal Speech and Movement: speech and movement normal Affect: normal affect Course Vital Signs Temperature 97.3 F L 11/11/18 14:41 Pulse 80 11/11/18 14:41 Blood Pressure 171/97 H 11/11/18 14:41 Pulse Oximetry 95 11/11/18 14:41 Temperature 97.3 F L 11/11/18 14:41 Temperature Source Skin 11/11/18 14:41 Pulse 80 11/11/18 14:41 Blood Pressure 171/97 H 11/11/18 14:41 Blood Pressure Position Sitting 11/11/18 14:41 Pulse Oximetry 95 11/11/18 14:41 Oxygen Delivery Method Room Air 11/11/18 14:41 Oxygen Flow Rate 0 11/11/18 14:41 Pain Level 7 11/11/18 14:41
[2018-11-11 15:57] LABS: Abs Immature Grans 0.02 k/cumm (0.0-0.09); Absolute Basophil Count 0.02 k/cumm (0.0-0.2); Absolute Eosinophil Count 0.23 k/cumm (0.0-0.7); Absolute Lymphocyte Count 2.14 k/cumm (1.2-3.4); Absolute Neutrophil Count 6.11 k/cumm (1.2-6.7); Basophils % 0.2; Eosinophils % 2.5; HCT 38.3 % (40.0-50.0); HGB 12.2 g/dL (13.5-17.5); Immature Grans % 0.2; Lymphocytes % 23.7; Mean Corp. HGB Concentration 31.9 g/dL (32.0-36.0); Mean Corpuscular Hemoglobin 25.8 pg (27.0-33.0); Mean Corpuscular Volume 81.1 fL (80-95); Mean Platelet Volume 9.2 fL (8.0-11.0); Monocytes % 5.5; Neutrophils % 67.9; Platelet Count 302 x1000/uL (130-400); RBC 4.72 m/cumm (4.50-6.00); RBC Distribution Width 14.7 % (11.8-14.1); White Blood Cell Count 9.02 k/cumm (4.4-10.8)
[2018-11-11 16:48] LABS: ALT 28 U/L (12-78); AST 25 U/L (15-37); Albumin 3.6 g/dL (3.4-5.0); Alkaline Phosphatase 123 U/L (46-116); BUN 15 mg/dL (7-18); Bilirubin, Total 0.3 mg/dL (0.2-1.0); CREATININE 1.08 mg/dL (0.70-1.30); Calcium 9.1 mg/dL (8.5-10.1); Chloride 101 mmol/L (98-107); Glucose 96 mg/dL (70-100); Potassium 3.6 mmol/L (3.5-5.1); Sodium 139 mmol/L (136-145)
[2018-11-11] MEDS: oxyCODONE 5 MG TAB (17:38)
[2018-11-11 20:45] VITALS: BP 171/97; PULSE 80; TEMP 36.3; O2SAT 95
[2018-11-11] MEDS: cefTRIAXone 2 GM/50 ML BAG IVPB (21:37)
[2018-11-11 21:42] VITALS: BP 156/108; PULSE 78; RESP 20; TEMP 36.4; O2SAT 96
[2018-11-11] MEDS: oxyCODONE 15 MG TAB PO (22:24)
[2018-11-11] MEDS: Acetaminophen 500 MG TAB 1000 MG PO (22:24)
[2018-11-11] MEDS: Ondansetron 4 MG/2 ML VIAL IVP (22:37)
[2018-11-11] MEDS: Normal Saline Flush 10 ML SYR IVP (22:37)
[2018-11-12] VITALS (13 sets, daily range): BP systolic 120–178; BP diastolic 74–112; PULSE 57–75; RESP 14–20; TEMP 35.9–37; O2SAT 95–98
[2018-11-12] MEDS: oxyCODONE 15 MG TAB PO ×5 (02:21→19:46)
[2018-11-12] MEDS: Ondansetron 4 MG/2 ML VIAL IVP ×2 (06:21→22:24)
[2018-11-12] MEDS: Normal Saline Flush 10 ML SYR IVP ×3 (06:22→22:24)
[2018-11-12] MEDS: Acetaminophen 500 MG TAB 1000 MG PO ×2 (06:22→14:12)
[2018-11-12] MEDS: amLODIPine 5 MG TAB PO (08:25)
[2018-11-12] MEDS: Ibuprofen 800 MG TAB PO ×3 (08:25→19:45)
[2018-11-12] MEDS: Pantoprazole 40 MG TABCR PO ×2 (08:25→19:45)
[2018-11-12] MEDS: Docusate Sodium 100 MG CAP PO ×2 (08:25→19:46)
[2018-11-12] MEDS: DULoxetine 30 MG CAP PO (08:25)
[2018-11-12 08:30] LABS: C-Reactive Protein 2.94 mg/dL (0.0-0.3)
--- NOTE | 2018-11-12 08:32 | NUR.NOTE ---
Nursing Note: 0830: pt states that [facility] had discontinued Gabapentin during his admission. pt declines to take Gabapentin at this time as insurance won't pay for it, so I shouldn't start it again.
[2018-11-12] MEDS: diazePAM 5 MG TAB 10 MG PO (10:21)
[2018-11-12] MEDS: LORazepam 2 MG/ML VIAL 1 MG IVP ×2 (11:25→12:00)
--- NOTE | 2018-11-12 13:47 | W.PM.HP.N ---
Date of service: 11/12/18 Time of Service: 07:47 Assessment and Plan (1) Psoas abscess, left: Current visit: Yes Status: Acute aJi is a 43-year-old who I have been taken care of since August. His full history is been documented in multiple places. Unfortunately, he continues to have pain, subjective fevers and chills, and intolerance of antibiotics. His most recent C-reactive protein has increased to 2.9. His sed rate has also increased. He feels ill with malaise persistent pain which now is more in the back than the left hip along with chills and recalcitrant nausea. He is tried multiple antibiotics, all with significant side effects. He is frustrated and feels like things are continuing to get worse. He has had previous imaging which showed the psoas abscess decreasing in size but paraspinal abscesses present with abutment of hardware. [facility] infectious disease preferred that there was some sampling of this fluid performed, however, all surgical subspecialties as well as intervention radiology declined. I then set Mr. Cuevas for a second opinion at the [facility]. They also agreed that newer imaging with sampling of fluid would be indicated. However, they were not able to assist in this while he was there. He now presents with persistent symptoms which he has been unable to manage at home. I spent multiple hours on the phone talking with various providers at [facility] yesterday. Most providers agreed that further workup was required. That workup required is not available here in [facility]. However, I was unable to gain any progress with getting him in the [facility] system. An MRI with sedation was recommended for better imaging prior to proceeding with any interventional procedure or surgical consult. However, it would be well over 6 weeks from now before we could obtain this after discussing it with the radiology department. Jason has significant anxiety and other mental health concerns, labile moods, with no social support in this area. I have already worked with [facility] to get him to the office visits but this is impossible due for multiple visit with multiple providers with possible sedation on board. I will admit him to the hospital for his symptom control of his nausea. Without any further guidance from other providers am going to stop all antibiotics. Unfortunately, Jason needs to be sicker before anyone seems to move expeditiously. I attempted an MRI of his lumbar spine and hip as requested by [facility]. I use as much sedation as I could possibly try without truly making this conscious sedation. Unfortunately, he is unable to stay still. I will reach back out to [facility]. I really do not know what to do with Jason. He continues have pain where he has abscesses. He continues to fail antibiotic treatments. I will continue to support his nausea. I am hopeful that is related to the antibiotics. I have appreciated the accessibility of some of the providers at [facility]. However, I cannot facilitate multiple subspecialties especially those including sedation from [facility], especially from a [facility] practice. There is a complex case with a complex medical issue that requires tertiary referral care. I will continue to do what I can for Jai here. However, the treatment intervention that he needs in the diagnosis to understand it is not available here. Until he is accepted by another tertiary referral center will continue to treat symptoms and keep calling. (2) Paraspinal abscess: Current visit: Yes Status: Acute (3) Nausea: Current visit: Yes Status: Acute History of Present Illness Chief Complaint: Low back pain and persistent nausea Consults Consult date: 11/11/18 Requesting physician: Neida Stephens Narrative: Jason is a 43-year-old who I know quite well for a known left psoas abscess. He is status post multiple debridements. He has seen multiple providers here and at [facility] and also at [facility]. He completed an initial course of IV antibiotics after multiple debridements. He has had recurrence of malaise, nausea, vomiting, low back pain. His left hip and groin pain appears to be improving per his report. His low back pain is what is causing the most pain making it nearly impossible to lay flat or lay on his right side. This pain is over the midportion of the back in the lumbar region. He feels a primarily centrally but also to the side, right worse than left. He has had imaging performed at [facility] last month which showed an abscess around the spine abutting the spinal hardware. He has been unable to tolerate oral antibiotics. Infectious disease providers recommend sampling the fluid and try to decompress the abscesses. However, interventional radiology and surgery at [facility] say there is nothing to do. He presented to the emergency department yesterday for worsening pain, subjective fever and chills, malaise, persistent nausea with dry heaving. He is now on his third antibiotic after discontinuing rifampin, cefepime, and now doxycycline. The nausea keeps him up at night. Occasionally there will be some productive vomitus but usually it is dry heaving. In between the nausea he is able to eat and drink. He is able to ambulate without assistive device and denies numbness or tingling. He has had no change to bowel or bladder habits. He denies any issues with the left hip wound. He continues to make progress per his report and has been managed by home health nursing. Review of Systems Review of Systems All systems reviewed & are unremarkable except as noted in HPI and below PFSH Medical History Affective personality disorder (Chronic) Anxiety (Chronic) Bipolar 2 disorder (Chronic) Depression (Chronic) GERD (gastroesophageal reflux disease) (Chronic) HTN (hypertension) (Chronic) Hepatitis C (Chronic) History of alcohol abuse (Chronic) History of intravenous drug abuse (Chronic) Hyperlipidemia (Chronic) Kidney stones (Chronic) PTSD (post-traumatic stress disorder) (Chronic) TBI (traumatic brain injury) (Chronic) Surgical History Appendectomy Colonoscopy - MAC (11/14/16) EGD - MAC (11/14/16) Rotator Cuff Repair Spinal Fusion Vasectomy Social History Smoking/Tobacco Use Status: Current every day Tobacco Type: cigarettes Alcohol Intake: never Drug use: Never Substance use type: does not use Do you feel safe at home: Yes Do you feel safe in your relationship?: Yes Meds Home Medications Medication Instructions Recorded Confirmed Type acetaminophen [Mapap Extra 1,000 mg PO Q8H PRN PRN #0 tab 09/29/18 11/11/18 Rx Strength] amlodipine 5 mg PO DAILY #30 tab 09/29/18 11/11/18 Rx clonidine [Bpkmelbf-QAS-4] 0.1 mg TRANSDERMAL Q7D #4 ea 09/29/18 11/11/18 Rx docusate sodium [Colace] 100 mg PO BID #60 cap 09/29/18 11/11/18 Rx duloxetine [Cymbalta] 30 mg PO DAILY #14 cap 09/29/18 11/11/18 Rx gabapentin 600 mg PO TID #90 cap 09/29/18 11/11/18 Rx ibuprofen [IBU] 800 mg PO TID #30 tab 09/29/18 11/11/18 Rx lidocaine [Lidoderm] 1 patch TOPICAL DAILY@1800 #14 ea 09/29/18 11/11/18 Rx pantoprazole 40 mg PO BID@0730,2000 #60 tab 09/29/18 11/11/18 Rx hydrocodone-acetaminophen [[place]] 1 tab PO Q6H #5 tab 10/04/18 11/11/18 Rx oxycodone 15 mg tablet 15 - 30 mg PO Q4H PRN PRN #60 tab 10/29/18 11/11/18 Rx MDD 180mg Allergies Allergy/AdvReac Type Severity Reaction Status Date / Time No Known Allergies Allergy Unverified 11/11/18 15:54 Exam Narrative Exam Narrative: Jason is laying in supine position on the stretcher. He is in a slightly flexed position at the level of the hips. He appears diaphoretic. In no acute distress. Alert and oriented x3. The back is evaluated and shows no overlying skin changes. No erythema. The previous incision of his lumbar spine is well approximated without signs of infection. There is some softness to this area which would be expected given previous decompression of the spinous processes. There is pain to palpation in the midline of the spine from the proximal L1 through the sacrum. The L3 region appears to be the most painful. This is especially true in the paraspinal region on the right side. No significant pain to percussion. Straight leg raise negative. He is able to perform straight leg raise actively but this does cause some pain within the groin low back. Gentle hip range of motion does not cause exacerbation of pain except beyond 20 degrees of internal rotation or external rotation. Left hip wound continues to close then with only about 3 cm in length with granulation tissue seen throughout. No active purulence. No erythema in this region. Sensation is intact light touch from L3 through S1. Motor is grossly intact, 5 out of 5, from L3 through S1. Results Labs : 11/11/18 15:50 11/11/18 15:50 Laboratory Results - last 24 hr 0411/11/18 11/11/18 15:50 15:50 15:50 WBC 9.02 RBC 4.72 Hgb 12.2 L Hct 38.3 L MCV 81.1 MCH 25.8 L MCHC 31.9 L RDW 14.7 H Plt Count 302 MPV 9.2 Immature Gran % 0.2 Neutrophils % 67.9 Lymphocytes % 23.7 Monocytes % 5.5 Eosinophils % 2.5 Basophils % 0.2 Absolute Neutrophils 6.11 Absolute Lymphocytes 2.14 Absolute Monocytes 0.50 Absolute Eosinophils 0.23 Absolute Basophils 0.02 Sodium 139 Potassium 3.6 Chloride 101 Carbon Dioxide 29.0 Anion Gap 9.0 BUN 15 Creatinine 1.08 Estimated GFR/1.73 m2 >= 60.00 Glucose 96 Lactate 1.0 Calcium 9.1 Total Bilirubin 0.3 AST 25 ALT 28 Alkaline Phosphatase 123 H C-Reactive Protein Total Protein 8.0 Albumin 3.6 11/12/18 06:55 WBC RBC Hgb Hct MCV MCH MCHC RDW Plt Count MPV Immature Gran % Neutrophils % Lymphocytes % Monocytes % Eosinophils % Basophils % Absolute Neutrophils Absolute Lymphocytes Absolute Monocytes Absolute Eosinophils Absolute Basophils Sodium Potassium Chloride Carbon Dioxide Anion Gap BUN Creatinine Estimated GFR/1.73 m2 Glucose Lactate Calcium Total Bilirubin AST ALT Alkaline Phosphatase C-Reactive Protein 2.94 H Total Protein Albumin Last Vital Signs Temp 36.2 C L 11/12/18 13:43 Pulse 68 11/12/18 13:43 Resp 16 11/12/18 13:43 BP 149/92 H 11/12/18 13:43 Pulse Ox 97 11/12/18 13:43
--- NOTE | 2018-11-12 13:51 | HPE_ITS ---
Date of service: 11/12/18 Time of Service: 07:47 Assessment and Plan (1) Psoas abscess, left: Current visit: Yes Status: Acute Jai is a 43-year-old who I have been taken care of since August. His full history is been documented in multiple places. Unfortunately, he continues to have pain, subjective fevers and chills, and intolerance of antibiotics. His most recent C-reactive protein has increased to 2.9. His sed rate has also increased. He feels ill with malaise persistent pain which now is more in the back than the left hip along with chills and recalcitrant nausea. He is tried multiple antibiotics, all with significant side effects. He is frustrated and feels like things are continuing to get worse. He has had previous imaging which showed the psoas abscess decreasing in size but paraspinal abscesses present with abutment of hardware. [facility] infectious disease preferred that there was some sampling of this fluid performed, however, all surgical subspecialties as well as intervention radiology declined. I then set Mr. Cuevas for a second opinion at the [facility]. They also agreed that newer imaging with sampling of fluid would be indicated. However, they wer e not able to assist in this while he was there. He now presents with persistent symptoms which he has been unable to manage at home. I spent multiple hours on the phone talking with various providers at [facility] yesterday. Most providers agreed that further workup was required. Gilberto t workup required is not available here in [facility]. However, I was unable to gain any progress with getting him in the [facility] system. An MRI with sedation was recommended for better imaging prior to proceeding with any interventional procedure or surgical consult. However, it would be well over 6 weeks from now before we could obtain this after discussing it with the radiology department. Jason has significant anxiety and other mental health concerns, labile moods, with no social support in this area. I have already worked with [facility] to get him to the office visits but this is impossible due for multiple visit with multiple providers with possible sedation on board. I will admit him to the hospital for his symptom control of his nausea. Without any further guidance from other providers am going to stop all antibiotics. Unfortunately, Jason needs to be sicker before anyone seems to move expeditiously. I attempted an MRI of his lumbar spine and hip as requested by [facility]. I use as much sedation as I could possibly try la kristina truly making this conscious sedation. Unfortunately, he is unable to stay still. I will reach back out to [facility]. I really do not know what to do with Jason. He continues have pain where he has abscesses. He continues to fail antibiotic treatments. I will continue to support his nausea. I am hopeful that is related to the antibiotics. I have appreciated the accessibility of some of the providers at [facility]. However, I cannot facilitate multiple subspecialties especially those including sedation from [facility], especially from a [facility]. There is a complex case with a complex medical issue that requires tertiary referral care. I will continue to do what I can for Jai here. However, the treatment intervention that he needs in the diagnosis to understand it is not available here. Until he is accepted by another tertiary referral center will continue to treat symptoms and keep calling. (2) Paraspinal abscess: Current visit: Yes Status: Acute (3) Nausea: Current visit: Yes Status: Acute History of Present Illness Chief Complaint: Low back pain and persistent nausea Consults Consult date: 11/11/18 Requesting physician: Neida Stephens Narrative: Jason is a 43-year-old who I know quite well for a known left psoas abscess. He is status post multiple debridements. He has seen multiple providers here and at [facility] and also at [facility]. He completed an initial course of IV antibiotics after multiple debridements. He has had recurrence of malaise, nausea, vomiting, low back pain. His left hip and groin pain appears to be improving per his report. His low back pain is what is causing the most pain making it nearly impossible to lay flat or lay on his right side. This pain is over the midportion of the back in the lumbar region. He feels a primarily centrally but also to the side, right worse than left. He has had imaging performed at [facility] last month which showed an abscess around the spine abutting the spinal hardware. He has been unable to tolerate oral antibiotics. Infectious disease providers recommend sampling the fluid and try to decompress the abscesses. However, interventional radiology and surgery at [facility] say there is nothing to do. He presented to the emergency department yesterday for worsening pain, subjective fever and chills, malaise, persistent nausea with dry heaving. He is now on his third antibiotic after discontinuing rifampin, cefepime, and now doxycycline. The nausea keeps him up at night. Occasionally there will be some productive vomitus but usually it is dry heaving. In between the nausea he is able to eat and drink. He is able to ambulate without assistive device and denies numbness or tingling. He has had no change to bowel or bladder habits. He denies any issues with the left hip wound. He continues to make progress per his report and has been managed by home health nursing. Review of Systems Review of Systems All systems reviewed & are unremarkable except as noted in HPI and below PFSH Medical History Affective personality disorder (Chronic) Anxiety (Chronic) Bipolar 2 disorder (Chronic) Depression (Chronic) GERD (gastroesophageal reflux disease) (Chronic) HTN (hypertension) (Chronic) Hepatitis C (Chronic) History of alcohol abuse (Chronic) History of intravenous drug abuse (Chronic) Hyperlipidemia (Chronic) Kidney stones (Chronic) PTSD (post-traumatic stress disorder) (Chronic) TBI (traumatic brain injury) (Chronic) Surgical History Appendectomy Colonoscopy - MAC (11/14/16) EGD - MAC (11/14/16) Rotator Cuff Repair Spinal Fusion Vasectomy Social History Smoking/Tobacco Use Status: Current every day Tobacco Type: cigarettes Alcohol Intake: never Drug use: Never Substance use type: does not use Do you feel safe at home: Yes Do you feel safe in your relationship?: Yes Meds Home Medications Medication Instructions Recorded Confirmed Type acetaminophen [Mapap Extra 1,000 mg PO Q8H PRN PRN #0 tab 09/29/18 11/11/18 Rx Strength] amlodipine 5 mg PO DAILY #30 tab 09/29/18 11/11/18 Rx clonidine [[id number]] 0.1 mg TRANSDERMAL Q7D #4 ea 09/29/18 11/11/18 Rx docusate sodium [Colace] 100 mg PO BID #60 cap 09/29/18 11/11/18 Rx duloxetine [Cymbalta] 30 mg PO DAILY #14 cap 09/29/18 11/11/18 Rx gabapentin 600 mg PO TID #90 cap 09/29/18 11/11/18 Rx ibuprofen [IBU] 800 mg PO TID #30 tab 09/29/18 11/11/18 Rx lidocaine [Lidoderm] 1 patch TOPICAL DAILY@1800 #14 ea 09/29/18 11/11/18 Rx pantoprazole 40 mg PO BID@0730,2000 #60 tab 09/29/18 11/11/18 Rx hydrocodone-acetaminophen [[place]] 1 tab PO Q6H #5 tab 10/04/18 11/11/18 Rx oxycodone 15 mg tablet 15 - 30 mg PO Q4H PRN PRN #60 tab 10/29/18 11/11/18 Rx MDD 180mg Allergies Allergy/AdvReac Type Severity Reaction Status Date / Time No Known Allergies Allergy Unverified 11/11/18 15:54 Exam Narrative Exam Narrative: Jason is laying in supine position on the stretcher. He is in a slightly flexed position at the level of the hips. He appears diaphoretic. In no acute distress. Alert and oriented x3. The back is evaluated and shows no overlying skin changes. No erythema. The previous incision of his lumbar spine is well approximated without signs of infection. There is some softness to this area which would be expected given previous decompression of the spinous processes. There is pain to palpation in the midline of the spine from the proximal L1 through the sacrum. The L3 region appears to be the most painful. This is especially true in the paraspinal region on the right side. No significant pain to percussion. Straight leg raise negative. He is able to perform straight leg raise actively but this does cause some pain within the groin low back. Gentle hip range of motion does not cause exacerbation of pain except beyond 20 degrees of internal rotation or external rotation. Left hip wound continues to close then with only about 3 cm in length with granulation tissue seen throughout. No active purulence. No erythema in this region. Sensation is intact light touch from L3 through S1. Motor is grossly intact, 5 out of 5, from L3 through S1. Results Labs : 11/11/18 15:50 11/11/18 15:50 Laboratory Results - last 24 hr 11/11/18 11/11/18 11/11/18 15:50 15:50 15:50 WBC 9.02 RBC 4.72 Hgb 12.2 L Hct 38.3 L MCV 81.1 MCH 25.8 L MCHC 31.9 L RDW 14.7 H Plt Count 302 MPV 9.2 Immature Gran % 0.2 Neutrophils % 67.9 Lymphocytes % 23.7 Monocytes % 5.5 Eosinophils % 2.5 Basophils % 0.2 Absolute Neutrophils 6.11 Absolute Lymphocytes 2.14 Absolute Monocytes 0.50 Absolute Eosinophils 0.23 Absolute Basophils 0.02 Sodium 139 Potassium 3.6 Chloride 101 Carbon Dioxide 29.0 Anion Gap 9.0 BUN 15 Creatinine 1.08 Estimated GFR/1.73 m2 >= 60.00 Glucose 96 Lactate 1.0 Calcium 9.1 Total Bilirubin 0.3 AST 25 ALT 28 Alkaline Phosphatase 123 H C-Reactive Protein Total Protein 8.0 Albumin 3.6 11/12/18 06:55 WBC RBC Hgb Hct MCV MCH MCHC RDW Plt Count MPV Immature Gran % Neutrophils % Lymphocytes % Monocytes % Eosinophils % Basophils % Absolute Neutrophils Absolute Lymphocytes Absolute Monocytes Absolute Eosinophils Absolute Basophils Sodium Potassium Chloride Carbon Dioxide Anion Gap BUN Creatinine Estimated GFR/1.73 m2 Glucose Lactate Calcium Total Bilirubin AST ALT Alkaline Phosphatase C-Reactive Protein 2.94 H Total Protein Albumin Last Vital Signs Temp 36.2 C L 11/12/18 13:43 Pulse 68 11/12/18 13:43 Resp 16 11/12/18 13:43 BP 149/92 H 11/12/18 13:43 Pulse Ox 97 11/12/18 13:43
--- NOTE | 2018-11-12 13:59 | DI.MRI_ITS ---
SYMPTOMS/DIAGNOSIS: SPINE HARDWARE WITH INFECTION LUMBOSACRAL SPINE MRI: MRI examination of the lumbosacral spine was performed according to the usual protocol. This examination was planned as a post contrast examination as well but the patient was unable to tolerate the examination. There is significant artifact from fusion apparatus in place in the lumbar spine at the L 3, L 4 and L 5 levels. Apart from artifactual findings there is no gross signal abnormality identified associated with the hardware. Incidental finding of presumed hemangioma of L 2 vertebral body. No additional vertebral abnormality seen. The spinal canal appears fairly well maintained as visualized with mild narrowing of AP diameter at L 1 - 2 and L 2 - 3. Conus medullaris appears intact. Neural foramina are not ideally evaluated but appear grossly patent. CONCLUSION: Limited study secondary to artifact from metallic hardware. Post contrast scan not obtained due to patient inability to tolerate this examination. No gross evidence of infection or abscess.
--- NOTE | 2018-11-12 14:08 | PHARADMIT ---
Admission Pharmacy Clinical Review CHRONIC Lt OLIPSOAS, CHRONIC BACK PAIN, FEVER Code Status Full Code Current Weight Wgt- 138.3 kg Renally Cleared and Narrow Therapeutic Index Meds CrCl~ 101 mL/min Meds-OK QTc Value / Action Taken NONE CURRENT BP Control, Fever BP- 149/92 Tmax- 36.4C Electrolytes reviewed Na- 139 K+3.6 DVT Prophylaxis None Opiate Usage / Scheduled Bowel Regimen Ordered Yes Yes Plt/SCr for Heparin / Enoxaparin Plts- 302 SCr-1.08 INR for Warfarin na H/H stable, WBC/Bands H&H- 12.2/38.3 WBA- 9.02 Antibiotic appropriateness none Cultures and Sensitivities none Surgical ABX d/c within 24 hr na DM control / Insulin Dosing BG- 96 Heart Failure (Check EF%) (PAMELA's, B-Block, Diuretics) Norvasc, Clonidine patch IV to PO Switch No Home Meds Reviewed Yes Home Meds Not Ordered [place], Comments R-CRP- 2.94 (0.0-0.3)
[2018-11-12] MEDS: cloNIDine 0.1 MG PATCH TD (14:32)
--- NOTE | 2018-11-12 17:00 | PDOC.CMIN ---
- If Service Date Differs Date of service: 11/12/18 Time of Service: 17:00 Care Management Initial Assess REASON FOR HOSPITALIZATION:: Psoas abscess, (L) PAST MEDICAL HISTORY/PAST SURGICAL HISTORY:: Affective personality disorder (Chronic). Anxiety (Chronic). Bipolar 2 disorder (Chronic). Depression (Chronic). GERD (gastroesophageal reflux disease) (Chronic). HTN (hypertension) (Chronic). Hepatitis C (Chronic). History of alcohol abuse (Chronic). History of intravenous drug abuse (Chronic). Hyperlipidemia (Chronic). Kidney stones (Chronic). PTSD (post-traumatic stress disorder) (Chronic). TBI (traumatic brain injury) (Chronic). Appendectomy. Colonoscopy - MAC (11/14/16). EGD - MAC (11/14/16). Rotator Cuff Repair. Spinal Fusion. Vasectomy PREVIOUS FUNCTIONAL STATUS/SOCIAL/FAMILY SUPPORTS:: Jason resides in [facility] with his roommate. He has a brother whom is local whom is supportive to him at times. Jason is unable to fully engage during discussion today due to medications. CURRENT FUNCTIONAL STATUS:: Currently Jason is lying in bed when this auto service writer visits, he is unable to fully engage during discussion, and falls asleep frequently throughout discussion. ADVANCE DIRECTIVES:: None on file Has patient been provided with information about the portal?: No Did the patient sign up for the portal?: No CODE STATUS:: Full Code INSURANCE COVERAGE / FINANCIAL ISSUES:: MCR, KARENA CURRENT HOME/COMMUNITY SERVICES/EQUIPMENT:: Currently Jason has no services in the community. He has a cane that he uses for ambulation. PRIMARY CARE PHYSICIAN:: Ashely Mueller POTENTIAL DISCHARGE NEEDS:: F/U appointment with PCP/Dr. Restrepo. ? Transfer to [facility] [place] PATIENT/FAMILY EDUCATION NEEDS:: Review DC instructions, any limitations, and ongoing DC planning discussion. discuss 'Ask Me Three' ANTICIPATED BARRIERS TO DISCHARGE:: None identified at this time. TRANSPORTATION:: Via [facility] PLAN:: ? whether Jason will be able to transfer to a tertiary center vs. require IV antibiotics ongoing. CM to continue to follow throughout hospitalization and discuss DC plans. RCT to transport when ready.
--- NOTE | 2018-11-12 17:04 | INITIAL_ITS ---
- If Service Date Differs Date of service: 11/12/18 Time of Service: 17:00 Care Management Initial Assess REASON FOR HOSPITALIZATION:: Psoas abscess, (L) PAST MEDICAL HISTORY/PAST SURGICAL HISTORY:: Affective personality disorder (Chronic). Anxiety (Chronic). Bipolar 2 disorder (Chronic). Depression (Chronic). GERD (gastroesophageal reflux disease) (Chronic). HTN (hypertension) (Chronic). Hepatitis C (Chronic). History of alcohol abuse (Chronic). History of intravenous drug abuse (Chronic). Hyperlipidemia (Chronic). Kidney stones (Chronic). PTSD (post-traumatic stress disorder) (Chronic). TBI (traumatic brain injury) (Chronic). Appendectomy. Colonoscopy - MAC (11/14/16). EGD - MAC (11/14/16). Rotator Cuff Repair. Spinal Fusion. Vasectomy PREVIOUS FUNCTIONAL STATUS/SOCIAL/FAMILY SUPPORTS:: Jason resides in [facility] with his roommate. He has a brother whom is local whom is supportive to him at times. Jason is unable to fully engage during discussion today due to medications. CURRENT FUNCTIONAL STATUS:: Currently Jason is lying in bed when this typewriter operator automatic visits, he is unable to fully engage during discussion, and falls asleep frequently throughout discussion. ADVANCE DIRECTIVES:: None on file Has patient been provided with information about the portal?: No Did the patient sign up for the portal?: No CODE STATUS:: Full Code INSURANCE COVERAGE / FINANCIAL ISSUES:: MCR, KARENA CURRENT HOME/COMMUNITY SERVICES/EQUIPMENT:: Currently Jason has no services in the community. He has a cane that he uses for ambulation. PRIMARY CARE PHYSICIAN:: Ashely Mueller POTENTIAL DISCHARGE NEEDS:: F/U appointment with PCP/Dr. Restrepo. ? [place] [facility] [place]IENT/FAMILY EDUCATION NEEDS:: Review DC instructions, any limitations, and ongoing DC planning discussion. discuss 'Ask Me Three' ANTICIPATED BARRIERS TO DISCHARGE:: None identified at this time. TRANSPORTATION:: Via [facility] PLAN:: ? whether Jason will be able to transfer to a tertiary center vs. require IV antibiotics ongoing. CM to continue to follow throughout hospitalization and discuss DC plans. RCT to transport when ready.
--- NOTE | 2018-11-13 02:28 | NUR.NOTE ---
Nursing Note: 11/12/181999H Patient refused Gabapentin at this time as well as Lidocaine patch which was not applied at 1800H Patient states he is not gonna take them because insurance was not going to cover
[2018-11-13] MEDS: oxyCODONE 15 MG TAB PO ×2 (03:23→08:02)
[2018-11-13 03:25] VITALS: BP 149/83; PULSE 68; RESP 18; TEMP 36.5; O2SAT 96
[2018-11-13 07:40] VITALS: BP 147/88; PULSE 66; RESP 20; TEMP 36.1; O2SAT 94
[2018-11-13] MEDS: DULoxetine 30 MG CAP PO (07:55)
[2018-11-13] MEDS: amLODIPine 5 MG TAB PO (07:55)
[2018-11-13] MEDS: Docusate Sodium 100 MG CAP PO (07:55)
[2018-11-13] MEDS: Ibuprofen 800 MG TAB PO (07:55)
[2018-11-13] MEDS: Pantoprazole 40 MG TABCR PO (08:02)
--- NOTE | 2018-11-13 09:10 | W.PM.DS.N ---
Date of service: 11/13/18 Time of Service: 09:10 DS: Diagnosis Discharge Diagnosis (1) Psoas abscess, left: Status: Acute (2) Paraspinal abscess: Status: Acute (3) Nausea: Status: Acute Discharge Plan Disposition Patient Disposition: HOME Condition: Stable Discharge Details Chief Complaint: Cellulitis Clinical Impression: Iliopsoas abscess on left, Back pain, Fever and chills Reason For Visit: CHRONIC L ILIOPSOAS, CHRONIC BACK PAIN, FEVER, Admit Date/Time: 11/11/18 19:10 Admit Provider: Natanael Restrepo Attending Provider: Natanael Restrepo Primary Care Provider: Ashely Mueller ED Provider: Neida Stephens Hospital Course Hospital Course: Jason was admitted from the emergency department for further evaluation. I initially started on IV antibiotics. He still continued to have some nausea and dry heaving. I had a long discussion with infectious disease physician, Dr. Blanc, at the [facility]. After discussing all the details we both agreed to stop antibiotics given the side effects and the marginal improvement of overall symptoms. An MRI was attempted with the use of significant amount of benzodiazepine for relaxation. However, he was unable to tolerate the MRI with abundant movement and did require 1 dose of flumazenil due to oversedation from the benzodiazepines. Jason continued to have back pain and required 30 mg of oxycodone every 4 hours. I was very apprehensive about prescribing this amount of narcotic pain medication. However, he has been on this amount before and does have a significant IV drug use history. He has shown no signs of diversion or abuse while under my care or other physicians care over the last 3 months of treating this infection. His vital signs are stable. His inflammatory markers had increased but he showed no signs of sepsis. After long discussion about treatment courses, Jason agreed that going home may be the most beneficial to him mentally and physically. Home Meds and New Rx's Prescriptions: New oxycodone 30 mg tablet 30 mg PO Q4H PRN PRN (Reason: pain) Qty: 30 RF: 0 promethazine 25 mg tablet 25 mg PO Q6H PRN (Reason: nausea and vomiting) Qty: 12 RF: 0 Narcan 4 mg/actuation spray,non-aerosol 1 spray HALEY Q2-3M PRN (Reason: opioid overdose) Qty: 2 RF: 0 Continued amlodipine 5 mg Tablet 5 mg PO DAILY Qty: 30 RF: 0 lidocaine [Lidoderm] 5 % Adhesive Patch,Medicated 1 patch topical DAILY@1800 Qty: 14 RF: 0 docusate sodium [Colace] 100 mg Capsule 100 mg PO BID Qty: 60 RF: 0 duloxetine [Cymbalta] 30 mg Capsule,Delayed Release(Dr/Ec) 30 mg PO DAILY Qty: 14 RF: 0 pantoprazole 40 mg Tablet,Delayed Release (Dr/Ec) 40 mg PO BID@0730,2000 Qty: 60 RF: 0 clonidine [[id number]-8] 0.1 mg/24 hr Patch Weekly 0.1 mg Transdermal Q7D Qty: 4 RF: 1 acetaminophen [Mapap Extra Strength] 500 mg Tablet 1,000 mg PO Q8H PRN PRNQty: 90 RF: 3 Changed ibuprofen [IBU] 800 mg Tablet 800 mg PO TID PRN (Reason: Pain) Qty: 90 RF: 3 Discontinued oxycodone 15 mg tablet 15 - 30 mg PO Q4H PRN MDD 180mg PRN (Reason: pain) Qty: 60 RF: 0 gabapentin 300 mg Capsule 600 mg PO TID Qty: 90 RF: 0 hydrocodone-acetaminophen [[place]] 7.5-325 mg tablet 1 tab PO Q6H Qty: 5 RF: 0 Discharge Instructions Additional Instructions: You have no restrictions on ambulation or activity. Should limit any lifting, twisting, or bending to protect your back. Otherwise, you may walk as tolerated. You should continue with dressing changes of Mepilex. I do not think Bujbu Ag is required anymore but it is okay to use. He will continue with her home medications. I have increased her oxycodone dose but try to have those tablets and titrate down as soon as possible. You should continue to take acetaminophen and ibuprofen as well for pain relief. I also have prescribed promethazine for nausea. I will see her back next week in the office. Referrals: Natanael Restrepo MD [ [facility]] - 11/17/18 Activity:: Activity as Tolerated Equipment/Supplies:: No Equipment Needed Diet:: As Tolerated Discharge Orders Discharge Orders: Discharge Order (Routine); Ordered 11/13/18 Ordered By: Natanael G Prohaska DS: Data Vitals/I&O Vitals and I&O: Vital Signs Temperature 36.1 C L 11/13/18 07:40 Temperature Source Tympanic 11/13/18 07:40 Pulse 66 11/13/18 07:40 Pulse Rhythm Regular 11/13/18 07:49 Respiratory Rate 20 11/13/18 07:40 Respiratory Effort Non-Labored 11/13/18 07:49 Respiratory Depth Normal 11/13/18 07:49 Respiratory Pattern Normal 11/13/18 07:49 Blood Pressure 147/88 H 11/13/18 07:40 Blood Pressure Position Sitting 11/11/18 14:41 Pulse Oximetry 94 L 11/13/18 07:40 Oxygen Delivery Method Room Air 11/13/18 07:40 Oxygen Flow Rate 0 11/13/18 07:40 Pain Level 8 11/13/18 07:40 Comment 11/13/18 03:25 Intake & Output 11/12/18 11/12/18 11/13/18 11:59 23:59 11:59 Intake Total 960 / 1620 660 / 1620 820 / 820 Balance 960 / 1620 660 / 1620 820 / 820 Intake: Oral 960 / 1620 660 / 1620 820 / 820 Other: Comment pt voiding ad floresita in bathroom; urine not assessed at this time urine not seen. Patient voids at the toilet ad floresita Voiding Methods Toilet [facility] Medical History Affective personality disorder (Chronic) Anxiety (Chronic) Bipolar 2 disorder (Chronic) Depression (Chronic) GERD (gastroesophageal reflux disease) (Chronic) HTN (hypertension) (Chronic) Hepatitis C (Chronic) History of alcohol abuse (Chronic) History of intravenous drug abuse (Chronic) Hyperlipidemia (Chronic) Kidney stones (Chronic) PTSD (post-traumatic stress disorder) (Chronic) TBI (traumatic brain injury) (Chronic) Surgical History Appendectomy Colonoscopy - MAC (11/14/16) EGD - MAC (11/14/16) Rotator Cuff Repair Spinal Fusion Vasectomy Social History Smoking/Tobacco Use Status: Current every day Tobacco Type: cigarettes Alcohol Intake: never Drug use: Never Substance use type: does not use Do you feel safe at home: Yes Do you feel safe in your relationship?: Yes
--- NOTE | 2018-11-13 09:13 | DSE_ITS ---
Date of service: 11/13/18 Time of Service: 09:10 DS: Diagnosis Discharge Diagnosis (1) Psoas abscess, left: Status: Acute (2) Paraspinal abscess: Status: Acute (3) Nausea: Status: Acute Discharge Plan Disposition Patient Disposition: HOME Condition: Stable Discharge Details Chief Complaint: Cellulitis Clinical Impression: Iliopsoas abscess on left, Back pain, Fever and chills Reason For Visit: CHRONIC L ILIOPSOAS, CHRONIC BACK PAIN, FEVER, Admit Date/Time: 11/11/18 19:10 Admit Provider: Natanael Restrepo Attending Provider: Natanael Restrepo Primary Care Provider: Ashely Mueller ED Provider: Neida Stephens Hospital Course Hospital Course: Jason was admitted from the emergency department for further evaluation. I initially started on IV antibiotics. He still continued to have some nausea and dry heaving. I had a long discussion with infectious disease physician, Dr. Blanc, at the [facility]. After discussing all the details we both agreed to stop antibiotics given the side effects and the marginal improvement of overall symptoms. An MRI was attempted with the use of significant amount of benzodiazepine for relaxation. However, he was unable to tolerate the MRI with abundant movement and did require 1 dose of flumazenil due to oversedation from the benzodiazepines. Jason continued to have back pain and required 30 mg of oxycodone every 4 hours. I was very apprehensive about prescribing this amount of narcotic pain medication. However, he has been on this amount before and does have a significant IV drug use history. He has shown no signs of diversion or abuse while under my care or other physicians care over the last 3 months of treating this infection. His vital signs are stable. His inflammatory markers had increased but he showed no signs of sepsis. After long discussion about treatment courses, Jason agreed that going home may be the most beneficial to him mentally and physically. Home Meds and New Rx's Prescriptions: New oxycodone 30 mg tablet 30 mg PO Q4H PRN PRN (Reason: pain) Qty: 30 RF: 0 promethazine 25 mg tablet 25 mg PO Q6H PRN (Reason: nausea and vomiting) Qty: 12 RF: 0 Narcan 4 mg/actuation spray,non-aerosol 1 spray HALEY Q2-3M PRN (Reason: opioid overdose) Qty: 2 RF: 0 Continued amlodipine 5 mg Tablet 5 mg PO DAILY Qty: 30 RF: 0 lidocaine [Lidoderm] 5 % Adhesive Patch,Medicated 1 patch topical DAILY@1800 Qty: 14 RF: 0 docusate sodium [Colace] 100 mg Capsule 100 mg PO BID Qty: 60 RF: 0 duloxetine [Cymbalta] 30 mg Capsule,Delayed Release(Dr/Ec) 30 mg PO DAILY Qty: 14 RF: 0 pantoprazole 40 mg Tablet,Delayed Release (Dr/Ec) 40 mg PO BID@0730,2000 Qty: 60 RF: 0 clonidine [[id number]-1] 0.1 mg/24 hr Patch Weekly 0.1 mg Transdermal Q7D Qty: 4 RF: 1 acetaminophen [Mapap Extra Strength] 500 mg Tablet 1,000 mg PO Q8H PRN PRNQty: 90 RF: 3 Changed ibuprofen [IBU] 800 mg Tablet 800 mg PO TID PRN (Reason: Pain) Qty: 90 RF: 3 Discontinued oxycodone 15 mg tablet 15 - 30 mg PO Q4H PRN MDD 180mg PRN (Reason: pain) Qty: 60 RF: 0 gabapentin 300 mg Capsule 600 mg PO TID Qty: 90 RF: 0 hydrocodone-acetaminophen [[place]] 7.5-325 mg tablet 1 tab PO Q6H Qty: 5 RF: 0 Discharge Instructions Additional Instructions: You have no restrictions on ambulation or activity. Should limit any lifting, twisting, or bending to protect your back. Otherwise, you may walk as tolerated. You should continue with dressing changes of Mepilex. I do not think [employer] is required anymore but it is okay to use. He will continue with her home medications. I have increased her oxycodone dose but try to have those tablets and titrate down as soon as possible. You should continue to take acetaminophen and ibuprofen as well for pain relief. I also have prescribed promethazine for nausea. I will see her back next week in the office. Referrals: Natanael Restrepo MD [ [facility] STAFF PHYSICIAN] - 11/17/18 Activity:: Activity as Tolerated Equipment/Supplies:: No Equipment Needed Diet:: As Tolerated Discharge Orders Discharge Orders: Discharge Order (Routine); Ordered 11/13/18 Ordered By: Natanael G Prohaska DS: Data Vitals/I&O Vitals and I&O: Vital Signs Temperature 36.1 C L 11/13/18 07:40 Temperature Source Tympanic 11/13/18 07:40 Pulse 66 11/13/18 07:40 Pulse Rhythm Regular 11/13/18 07:49 Respiratory Rate 20 11/13/18 07:40 Respiratory Effort Non-Labored 11/13/18 07:49 Respiratory Depth Normal 11/13/18 07:49 Respiratory Pattern Normal 11/13/18 07:49 Blood Pressure 147/88 H 11/13/18 07:40 Blood Pressure Position Sitting 11/11/18 14:41 Pulse Oximetry 94 L 11/13/18 07:40 Oxygen Delivery Method Room Air 11/13/18 07:40 Oxygen Flow Rate 0 11/13/18 07:40 Pain Level 8 11/13/18 07:40 Comment 11/13/18 03:25 Intake & Output 11/12/18 11/12/18 11/13/18 11:59 23:59 11:59 Intake Total 960 / 1620 660 / 1620 820 / 820 Balance 960 / 1620 660 / 1620 820 / 820 Intake: Oral 960 / 1620 660 / 1620 820 / 820 Other: Comment pt voiding ad floresita in bathroom; urine not assessed at this time urine not seen. Patient voids at the toilet ad floresita Voiding Methods Toilet [facility] Medical History Affective personality disorder (Chronic) Anxiety (Chronic) Bipolar 2 disorder (Chronic) Depression (Chronic) GERD (gastroesophageal reflux disease) (Chronic) HTN (hypertension) (Chronic) Hepatitis C (Chronic) History of alcohol abuse (Chronic) History of intravenous drug abuse (Chronic) Hyperlipidemia (Chronic) Kidney stones (Chronic) PTSD (post-traumatic stress disorder) (Chronic) TBI (traumatic brain injury) (Chronic) Surgical History Appendectomy Colonoscopy - MAC (11/14/16) EGD - MAC (11/14/16) Rotator Cuff Repair Spinal Fusion Vasectomy Social History Smoking/Tobacco Use Status: Current every day Tobacco Type: cigarettes Alcohol Intake: never Drug use: Never Substance use type: does not use Do you feel safe at home: Yes Do you feel safe in your relationship?: Yes
[2018-11-13 10:00] VITALS: O2SAT 94
--- NOTE | 2018-11-13 10:16 | PDOC.CMDIS ---
LACE Index Scoring Tool - Questions: Length of Stay (in days): 2 Acuity (Admit via E.D.?): Yes E.D. Visits: 5 - Answers: Total Score: 9 Risk of Readmission: Low Risk Care Management Discharge Reason for Hospitalization: Psoas abscess, (L) Discharge Plan: Jason will return home today and no services are needed. His friend will transport by car. Patient/Family Education Needs: Discharge instructions and information regarding specialty services at [facility].
--- NOTE | 2018-11-13 10:20 | CMDISCH_ITS ---
LACE Index Scoring Tool - Questions: Length of Stay (in days): 2 Acuity (Admit via E.D.?): Yes E.D. Visits: 5 - Answers: Total Score: 9 Risk of Readmission: Low Risk Care Management Discharge Reason for Hospitalization: Psoas abscess, (L) Discharge Plan: Jason will return home today and no services are needed. His friend will transport by car. Patient/Family Education Needs: Discharge instructions and information regarding specialty services at [facility].
[2018-11-15 12:29] LABS: Procalcitonin, S <0.10 ng/mL (<=0.15)
== END 2018-11-13 10:06 | disposition home or self-care (01) | DRG 372 ==
LOC: ER 19:20 → MS 11-12 07:55
PROVIDERS: Admitting Provider Student in an Organized Health Care Education/Training Program; Emergency Provider Physician Assistant; PCP Nurse Practitioner Family; Visit Provider Student in an Organized Health Care Education/Training Program
DX: K68.12 Psoas muscle abscess (principal); M46.20 Osteomyelitis of vertebra, site unspecified; R11.0 Nausea; G89.29 Other chronic pain; K21.9 Gastro-esophageal reflux disease without esophagitis; I10 Essential (primary) hypertension; E78.5 Hyperlipidemia, unspecified; F17.210 Nicotine dependence, cigarettes, uncomplicated; F06.4 Anxiety disorder due to known physiological condition
CPT/HCPCS: 36415; 80053; 84145; 99220; 99222; 99238; 99285; NC; 72148; 83605; 85025; 86140; 99284; G0378; J2060; J2405

== ENCOUNTER 2018-11-16 14:30 | Outpatient (CLI) | payer MEDICARE, MEDICAID, SELFPAY ==
[2018-11-16 15:45] LABS: C-Reactive Protein 4.52 mg/dL (0.0-0.3)
== END 2018-11-16 14:50 ==
PROVIDERS: PCP Nurse Practitioner Family; Visit Provider Student in an Organized Health Care Education/Training Program
DX: K68.12 Psoas muscle abscess (principal)
CPT/HCPCS: 36415; 86140

== ENCOUNTER → 2018-11-17 10:49 | Outpatient (BNVA) | payer MEDICARE, MEDICAID, SELFPAY | PROVIDERS: PCP Nurse Practitioner Family; Referring Provider Nurse Practitioner Family; Visit Provider Student in an Organized Health Care Education/Training Program | DX: M46.20 Osteomyelitis of vertebra, site unspecified (principal); K68.12 Psoas muscle abscess | CPT/HCPCS: 99213 ==

== ENCOUNTER 2018-11-23 11:38 | Outpatient (REF) | payer MEDICARE, MEDICAID, SELFPAY ==
[2018-11-23 13:29] LABS: C-Reactive Protein 3.01 mg/dL (0.0-0.3)
[2018-11-24 14:47] LABS: HCV RNA Detection Quantitative Undetected IU/mL (UNDECT)
== END 2018-11-23 11:58 ==
LOC: NCHCN 11:38
PROVIDERS: PCP Nurse Practitioner Family; Visit Provider Nurse Practitioner Family
DX: K68.12 Psoas muscle abscess (principal); B19.20 Unspecified viral hepatitis C without hepatic coma
CPT/HCPCS: 86140; 87522

== ENCOUNTER 2018-11-30 06:11 | Emergency (ER) | payer MEDICARE, MEDICAID, SELFPAY ==
[2018-11-30 06:13] VITALS: BP 204/120; PULSE 58; RESP 18; TEMP 36.5; O2SAT 97
--- NOTE | 2018-11-30 06:24 | DI.CT_ITS ---
SYMPTOMS/DIAGNOSIS: MID ABDOMINAL PAIN, RECENT PSOAS ABSCESS L CT SCAN OF THE ABDOMEN AND PELVIS: CT scan of the abdomen and pelvis was performed following the uneventful administration of intravenous contrast material. Comparison examination is 11/07/18. The visualized lung bases are clear. The liver is normal in size. No suspicious hepatic mass is seen. The portal, superior mesenteric and splenic veins are patent. The gallbladder is negative. There is no biliary ductal dilatation. The pancreas, spleen and adrenal glands are unremarkable, as are the kidneys, ureters and bladder. The reproductive organs are unremarkable. The bowel shows no evidence of obstruction of inflammation. There is diverticulosis of the colon, but no evidence of acute diverticulitis. The patient appears to be status post appendectomy. No significant abdominal or pelvic ascites or pneumoperitoneum is seen. No significant adenopathy is present. The left retroperitoneal fluid collection is unchanged compared to the prior examination. No acute osseous abnormality is present. IMPRESSION: No change in size of the left retroperitoneal fluid collection since 11/07/18.
--- NOTE | 2018-11-30 06:34 | ED.GENADUL_ITS ---
Discharge Plan Disposition Patient Disposition: AGAINST MEDICAL ADVICE Condition: Improving Discharge Details Chief Complaint: Abd Prob Clinical Impression: Abdominal pain Primary Care Provider: Ashely Mueller ED Provider: Kartik Sullivan Home Meds and New Rx's Prescriptions: No Action clonidine [[id number]-1] 0.1 mg/24 hr patch weekly 0.1 mg Transdermal Q7D Qty: 4 RF: 1 oxycodone 15 mg tablet 30 mg PO Q4H MDD 180mg Qty: 60 RF: 0 promethazine 25 mg tablet 25 mg PO Q6H PRN (Reason: nausea and vomiting) Qty: 12 RF: 0 amlodipine 5 mg Tablet 5 mg PO DAILY Qty: 30 RF: 0 lidocaine [Lidoderm] 5 % Adhesive Patch,Medicated 1 patch topical DAILY@1800 Qty: 14 RF: 0 docusate sodium [Colace] 100 mg Capsule 100 mg PO BID Qty: 60 RF: 0 duloxetine [Cymbalta] 30 mg Capsule,Delayed Release(Dr/Ec) 30 mg PO DAILY Qty: 14 RF: 0 pantoprazole 40 mg Tablet,Delayed Release (Dr/Ec) 40 mg PO BID@729,1999 Qty: 60 RF: 0 ibuprofen [IBU] 800 mg Tablet 800 mg PO TID PRN (Reason: Pain) Qty: 90 RF: 3 acetaminophen [Mapap Extra Strength] 500 mg Tablet 1,000 mg PO Q8H PRN PRNQty: 90 RF: 3 Narcan 4 mg/actuation spray,non-aerosol 1 spray HALEY Q2-3M PRN (Reason: opioid overdose) Qty: 2 RF: 0 Medical Decision Making <Tristian Galicia MD - Last Filed: 11/30/18 07:38> 43-year-old male presents from home with the abrupt onset of mid abdominal pain this morning. He is afebrile but hypertensive upon arrival. He has had a recent past medical history was notable for a left psoas abscess that required operative drainage and antibiotics. Today's presentation is of pain in a different location. IV access established, screening labs obtained, patient given parenteral analgesia and fluids. Labs reveal normal CBC and chemistries. Referred for CT images Lab Data Lab results reviewed: Yes I reviewed the patient's lab results. Laboratory Results - last 24 hr 11/30/18 11/30/18 11/30/18 07:10 07:10 07:10 WBC 8.43 RBC 4.81 Hgb 12.5 L Hct 39.1 L MCV 81.3 MCH 26.0 L MCHC 32.0 RDW 15.4 H Plt Count 256 MPV 9.3 Immature Gran % 0.2 Neutrophils % 74.6 Lymphocytes % 17.8 Monocytes % 4.9 Eosinophils % 2.3 Basophils % 0.2 Absolute Neutrophils 6.29 Absolute Lymphocytes 1.50 Absolute Monocytes 0.41 Absolute Eosinophils 0.19 Absolute Basophils 0.02 Sodium 139 Potassium 3.6 Chloride 102 Carbon Dioxide 28.5 Anion Gap 8.5 BUN 18 Creatinine 1.23 Estimated GFR/1.73 m2 >= 60.00 Glucose 98 Lactate 1.3 Calcium 9.2 Total Bilirubin 0.4 AST 20 ALT 21 Alkaline Phosphatase 125 H Total Protein 8.2 Albumin 3.7 <Kartik Sullivan, DO - Last Filed: 11/30/18 08:45> 8:05 AM The patient was signed out to me by my colleague Dr. Tristian Galicia. We are pending CT and laboratory work-up results at that time. Roughly 5 minutes after the transition of care the patient came out of his room and stated that he would like the IV out immediately and would like to go home as he is feeling much better. Laboratory work-up had returned by that time and his CBC and comprehensive metabolic panel were both benign with no concerning findings requiring immediate action or intervention. No white count, lactate within normal limits, no bandemia or severe electrolyte abnormality. We are still pending the CT results at this time. He had his long of a discussion as the patient would allow describing the risks of leaving AGAINST MEDICAL ADVICE and prematurely before the CT scan results are back. I also made it extremely clear that the worst risk would be premature or missing something catastrophic that he would need to immediately return for. The patient understands this. He is of sound mind and demonstrates clear decision-making capabilities. The patient is able to speak clearly. There is no demonstration of any slurring of speech. There is evidence of clear decision making capacity. Patient is able to ambulate well without any difficulty. There are no signs of ataxia or stumbling motions. No evidence of neurologic or mental compromise. Patient will be leaving AGAINST MEDICAL ADVICE. We will contact him if there is any life- threatening etiology noted on the CT scan requiring immediate return. 8:[address] scan results have returned and are noted below. There is evidence of left-sided infiltrating retroperitoneal fluid collection, I did review prior CTs and this appears unchanged however I did contact the vertebral radiologist and discussed the case with him, he is also now reviewed the images from 11/07, and he feels that the findings are unchanged and stable. I did contact Tristian Meridabee via phone and discussed the findings with him, he continues to feel well, and feels that he does not need to come back into the ER. I have implored him that he can return at any time if his mind does change for repeat evaluation and reassessment. Patient has no other complaints. He has thanked us for our care here today. I answered all questions that he did have while on the phone. He will be following up closely with his primary care physician. Addendum created by Sam Blanco MD on 11/30/2018 8:41 AM Eastern Time ([place] & [place]) Subsequently, comparison is made to a previous study dated 11/07/2018. This demonstrates a stable appearance to the left-sided retroperitoneal and iliac fossa fluid collection THIS REPORT CONTAINS FINDINGS THAT MAY BE CRITICAL TO PATIENT CARE. The findings were verbally communicated via telephone conference with TRISTIAN GALICIA at 8:41 AM EDT on 11/30/2018. The findings were acknowledged and understood. Initial Report created on 11/30/2018 8:08 AM Eastern Time ([place] & [place]) COMPARISON: CT ABDOMEN PELVIS W 11/07/2018 11:34 AM FINDINGS: ABDOMEN: Liver: Normal. No mass. Gallbladder and bile ducts: Normal. No calcified stones. No ductal dilation. Pancreas: Normal. No ductal dilation. Spleen: Normal. No splenomegaly. Adrenals: Normal. No mass. Kidneys and ureters: Normal. No hydronephrosis. Stomach and bowel: Normal. No obstruction. No mucosal thickening. Appendix: No evidence of appendicitis. Retroperitoneal space: Left-sided infiltrating retroperitoneal fluid appears hyperdense compatible with retroperitoneal hematoma. This is marlon-psoas in location however a component may be intramuscular in location. In addition, what appears to be a distended iliopsoas bursa which dissects retrograde may reflect iliopsoas bursitis. PELVIS: Bladder: Unremarkable as visualized. Reproductive: Unremarkable as visualized. ABDOMEN and PELVIS: Intraperitoneal space: See Retroperitoneal Space Finding. Bones/joints: Patient status post combined anterior posterior lumbar fusion L4-S1 Soft tissues: Unremarkable. Vasculature: Normal. No abdominal aortic aneurysm. Lymph nodes: Normal. No enlarged lymph nodes. IMPRESSION: Left-sided infiltrating retroperitoneal fluid appears hyperdense compatible with retroperitoneal hematoma. This is marlon-psoas in location however a component may be intramuscular in location. In addition, what appears to be a distended iliopsoas bursa which dissects retrograde may reflect iliopsoas bursitis. Dictated and Authenticated by: Sam Blanco MD. Ordering:CAIT Gomez MD HPI <Tristian Galicia MD - Last Filed: 11/30/18 07:38> General Mode of arrival: ambulatory . Date/Time Provider Initiated Documentation: 11/30/18 06:19 . Limitations to Documentation: no limitations . Information obtained by: patient . History of Present Illness 43 year old M presents to the emergency department with the chief complaint of Mid abdominal pain abruptly this morning, described as moderate, Quality is described as aching and constant, and is localized to the abdomen. Patient reports no radiation. Patient started experiencing this hour(s) and it has been constant. No relieving factors improve symptom(s), No exacerbating factors reported . Patient notes no other symptoms.. Patient did receive the following treatments prior to arrival, none Related Data Home Medications Medication Instructions Recorded Confirmed amlodipine 5 mg PO DAILY #30 tab 09/29/18 11/11/18 docusate sodium [Colace] 100 mg PO BID #60 cap 09/29/18 11/11/18 duloxetine [Cymbalta] 30 mg PO DAILY #14 cap 09/29/18 11/11/18 lidocaine [Lidoderm] 1 patch TOPICAL DAILY@1800 #14 ea 09/29/18 11/11/18 pantoprazole 40 mg PO BID@0730,2000 #60 tab 09/29/18 11/11/18 acetaminophen [Mapap Extra 1,000 mg PO Q8H PRN PRN #90 tab 11/13/18 Strength] ibuprofen [IBU] 800 mg PO TID PRN #90 tab 11/13/18 naloxone [Narcan] 1 spray HALEY Q2-3M PRN #2 each 11/13/18 clonidine 0.1 mg/24 hr weekly 0.1 mg TRANSDERMAL Q7D #4 ea 11/17/18 11/17/18 transdermal patch oxycodone 15 mg tablet 30 mg PO Q4H #60 tab MDD 180mg 11/17/18 11/17/18 promethazine 25 mg tablet 25 mg PO Q6H PRN #12 tab 11/17/18 11/17/18 Previous Rx's Medication Instructions Recorded amlodipine 5 mg PO DAILY #30 tab 09/29/18 docusate sodium [Colace] 100 mg PO BID #60 cap 09/29/18 duloxetine [Cymbalta] 30 mg PO DAILY #14 cap 09/29/18 lidocaine [Lidoderm] 1 patch TOPICAL DAILY@1800 #14 ea 09/29/18 pantoprazole 40 mg PO BID@0730,2000 #60 tab 09/29/18 acetaminophen [Mapap Extra 1,000 mg PO Q8H PRN PRN #90 tab 11/13/18 Strength] ibuprofen [IBU] 800 mg PO TID PRN #90 tab 11/13/18 naloxone [Narcan] 1 spray HALEY Q2-3M PRN #2 each 11/13/18 clonidine 0.1 mg/24 hr weekly 0.1 mg TRANSDERMAL Q7D #4 ea 11/17/18 transdermal patch oxycodone 15 mg tablet 30 mg PO Q4H #60 tab MDD 180mg 11/17/18 promethazine 25 mg tablet 25 mg PO Q6H PRN #12 tab 11/17/18 Allergies Allergy/AdvReac Type Severity Reaction Status Date / Time No Known Allergies Allergy Unverified 11/30/18 06:13 General Stated Complaint: Abd Prob DEEPTI: 2 Review of Systems <Tristian Galicia MD - Last Filed: 11/30/18 07:38> Review of Systems No recent antibiotics. No fever. 8 systems reviewed and otherwise negative PFSH <Tristian Galicia MD - Last Filed: 11/30/18 07:38> Medical History Affective personality disorder (Chronic) Anxiety (Chronic) Bipolar 2 disorder (Chronic) Depression (Chronic) GERD (gastroesophageal reflux disease) (Chronic) HTN (hypertension) (Chronic) Hepatitis C (Chronic) History of alcohol abuse (Chronic) History of intravenous drug abuse (Chronic) Hyperlipidemia (Chronic) Kidney stones (Chronic) PTSD (post-traumatic stress disorder) (Chronic) TBI (traumatic brain injury) (Chronic) Surgical History Appendectomy Colonoscopy - MAC (11/14/16) EGD - MAC (11/14/16) Rotator Cuff Repair Spinal Fusion Vasectomy Social History Smoking/Tobacco Use Status: Current every day Tobacco Type: cigarettes Alcohol Intake: never Drug use: Never Substance use type: does not use Do you feel safe at home: Yes Do you feel safe in your relationship?: Yes Exam <Tristian Galicia MD - Last Filed: 11/30/18 07:38> Narrative Exam Narrative: GEN: awake, alert, oriented 3. Pleasant, well groomed, interactive. HEAD: Normocephalic, atraumatic ENT: Mucous membranes moist, oropharynx unremarkable, External ear exam unremarkable EYES: PERRL, EOMI NECK: Full ROM, no ALDEN, no menigismus CHEST/RESP: Nontender, clear to auscultation bilateral, no wheeze/rhonchi/rales CARDIOVASCULAR: RRR, no murmur, rub yvonne. 2+ Rad pulse bilateral ABDOMEN: Soft, nontender, no mass. +Bowel sounds. Tender to palpation. Left groin with healing surgical incision. EXT: Full ROM, no edema, no rash Neuro: Grossly normal neurologic exam, conversant, interactive. Psych: Speech fluent, thoughts congruent, affect normal Course <Tristian Galicia MD - Last Filed: 11/30/18 07:38> Vital Signs Temperature 36.5 C 11/30/18 06:13 Pulse 58 L 11/30/18 06:13 Respiratory Rate 18 11/30/18 06:13 Blood Pressure 204/120 H 11/30/18 06:13 Pulse Oximetry 97 11/30/18 06:13 Temperature 36.5 C 11/30/18 06:13 Temperature Source Tympanic 11/30/18 06:13 Pulse 58 L 11/30/18 06:13 Respiratory Rate 18 11/30/18 06:13 Blood Pressure 204/120 H 11/30/18 06:13 Blood Pressure Position Sitting 11/30/18 06:13 Pulse Oximetry 97 11/30/18 06:13 Oxygen Delivery Method Tent 11/30/18 06:13 Oxygen Flow Rate 0 11/30/18 06:13 Sign Out <Tristian Galicia MD - Last Filed: 11/30/18 07:38> Sign Out Data: Sign Out Comment: Please follow-up CT scan results Last updated by Tristian Galicia MD at 11/30/18 07:44
--- NOTE | 2018-11-30 06:36 | NUR.NOTE ---
Nursing Note: Attempted IV access with ultrasound. Explained procedure to patient, educated patient on importance of Right AC for cat scan. Patient stated not to start IV there in Right AC where it was done before a few days ago as it was sore. Attempted laterally higher in arm as patient request. Obtained blood return and threaded. Patient stated that hurts. Going to attempt blood draw but saw the vein had blown and removed IV and placed gauze over site. Instructed patient that antecubital was the best spot. Patient agreed to left AC IV. Started to thread needle in left AC but patient then stated no one gets it there and asked me to stop and take it out. Patient request followed. Patient became verbally upset and started to yell at this brief writer. This brief writer stated I will not be treated this way and proceeded to inform patient that another RN will be in to attempt IV. --Jagjit WEAVER.
[2018-11-30] MEDS: Normal Saline 1,000 ML 1000 ML IV (07:10)
[2018-11-30] MEDS: HYDROmorphone 2 MG/ML VIAL 1 MG IVP ×2 (07:10→07:40)
[2018-11-30 07:15] LABS: Lactate 1.3 mmol/L (0.6-1.4)
[2018-11-30 07:19] LABS: Abs Immature Grans 0.02 k/cumm (0.0-0.09); Absolute Basophil Count 0.02 k/cumm (0.0-0.2); Absolute Eosinophil Count 0.19 k/cumm (0.0-0.7); Absolute Monocyte Count 0.41 k/cumm (0.11-0.7); Absolute Neutrophil Count 6.29 k/cumm (1.2-6.7); Basophils % 0.2; Eosinophils % 2.3; HCT 39.1 % (40.0-50.0); HGB 12.5 g/dL (13.5-17.5); Immature Grans % 0.2; Lymphocytes % 17.8; Mean Corpuscular Volume 81.3 fL (80-95); Mean Platelet Volume 9.3 fL (8.0-11.0); Monocytes % 4.9; Neutrophils % 74.6; Platelet Count 256 x1000/uL (130-400); RBC 4.81 m/cumm (4.50-6.00); RBC Distribution Width 15.4 % (11.8-14.1); White Blood Cell Count 8.43 k/cumm (4.4-10.8)
[2018-11-30 07:32] LABS: ALT 21 U/L (12-78); AST 20 U/L (15-37); Albumin 3.7 g/dL (3.4-5.0); Alkaline Phosphatase 125 U/L (46-116); Anion Gap 8.5 mmol/L (3-11); BUN 18 mg/dL (7-18); Bilirubin, Total 0.4 mg/dL (0.2-1.0); CO2 28.5 mmol/L (21.0-32.0); CREATININE 1.23 mg/dL (0.70-1.30); Calcium 9.2 mg/dL (8.5-10.1); Chloride 102 mmol/L (98-107); Glucose 98 mg/dL (70-100); Potassium 3.6 mmol/L (3.5-5.1); Sodium 139 mmol/L (136-145); Total Protein 8.2 g/dL (6.4-8.2)
[2018-11-30] MEDS: Omnipaque 350 MG/ML 100 ML BTL IJ (07:54)
[2018-11-30] MEDS: Omnipaque 350 MG/ML 50 ML BTL IJ (07:54)
[2018-11-30] MEDS: Normal Saline Flush 10 ML SYR IVP (07:55)
--- NOTE | 2018-11-30 08:09 | DI.VRAD_ITS ---
Addendum created by Sam Blanco MD on 11/30/2018 8:41:23 AM EDT Subsequently, comparison is made to a previous study dated 11/07/2018. This demonstrates a stable appearance to the left-sided retroperitoneal and iliac fossa fluid collection THIS REPORT CONTAINS FINDINGS THAT MAY BE CRITICAL TO PATIENT CARE. The findings were verbally communicated via telephone conference with TRISTIAN GALICIA at 8:41 AM EDT on 11/30/2018. The findings were acknowledged and understood. Initial report created on 11/30/2018 8:08:33 AM EDT EXAM: CT Abdomen and Pelvis With Contrast EXAM DATE/TIME: 11/30/2018 6:25 AM CLINICAL HISTORY: 43 years old, male; Signs and symptoms; Other: Mid abd pain, recent psoas abscess L; Prior surgery; Surgery date: 1-6 months; Surgery type: Spinal fusion surgery TECHNIQUE: Imaging protocol: Axial computed tomography images of the abdomen and pelvis with intravenous contrast. Coronal and sagittal reformatted images were created and reviewed. Radiation optimization: All CT scans at this facility use at least one of these dose optimization techniques: automated exposure control; mA and/or kV adjustment per patient size (includes targeted exams where dose is matched to clinical indication); or iterative reconstruction. Contrast material: OMNIPAQUE 350; Contrast volume: 125 ml; Contrast route: IV; COMPARISON: CT ABDOMEN PELVIS W 11/07/2018 11:34 AM FINDINGS: ABDOMEN: Liver: Normal. No mass. Gallbladder and bile ducts: Normal. No calcified stones. No ductal dilation. Pancreas: Normal. No ductal dilation. Spleen: Normal. No splenomegaly. Adrenals: Normal. No mass. Kidneys and ureters: Normal. No hydronephrosis. Stomach and bowel: Normal. No obstruction. No mucosal thickening. Appendix: No evidence of appendicitis. Retroperitoneal space: Left-sided infiltrating retroperitoneal fluid appears hyperdense compatible with retroperitoneal hematoma. This is marlon-psoas in location however a component may be intramuscular in location. In addition, what appears to be a distended iliopsoas bursa which dissects retrograde may reflect iliopsoas bursitis. PELVIS: Bladder: Unremarkable as visualized. Reproductive: Unremarkable as visualized. ABDOMEN and PELVIS: Intraperitoneal space: See Retroperitoneal Space Finding. Bones/joints: Patient status post combined anterior posterior lumbar fusion L4-S1 Soft tissues: Unremarkable. Vasculature: Normal. No abdominal aortic aneurysm. Lymph nodes: Normal. No enlarged lymph nodes. IMPRESSION: Left-sided infiltrating retroperitoneal fluid appears hyperdense compatible with retroperitoneal hematoma. This is marlon-psoas in location however a component may be intramuscular in location. In addition, what appears to be a distended iliopsoas bursa which dissects retrograde may reflect iliopsoas bursitis. Dictated and Authenticated by: Sam Blanco MD. Ordering:CAIT Gomez MD
--- NOTE | 2018-11-30 08:13 | NUR.NOTE ---
refused vital signs at end of visit. states he is feeling a lot better,wants his IV out because it hurts, hates this hospital and wants to go home.Nursing Note:
== END 2018-11-30 08:01 | disposition left against medical advice (07) ==
PROVIDERS: Emergency Medicine; Emergency Provider Student in an Organized Health Care Education/Training Program; PCP Nurse Practitioner Family
DX: R10.9 Unspecified abdominal pain (principal); K66.8 Other specified disorders of peritoneum; I10 Essential (primary) hypertension; Z53.29 Procedure and treatment not carried out because of patient's decision for other reasons; K80.50 Calculus of bile duct without cholangitis or cholecystitis without obstruction
CPT/HCPCS: 80053; 96361; 96374; 96376; 99285; 74177; 83605; 85025; 99284; J3490; Q9967

== ENCOUNTER 2018-11-30 14:55 | Emergency (ER) | payer MEDICARE, MEDICAID, SELFPAY ==
--- NOTE | 2018-11-30 15:00 | NUR.NOTE ---
PT was seen earlier today for right sided abdominal pain left AMA shortly after receiving pain medication pT returns for identical pain that started approximately 1 hr ago
[2018-11-30 15:01] VITALS: BP 157/94; PULSE 70; RESP 18; TEMP 37.6; O2SAT 97
--- NOTE | 2018-11-30 15:05 | DI.US_ITS ---
SYMPTOMS/DIAGNOSIS: RIGHT UPPER QUADRANT PAIN, EVALUATE GALLBLADDER LIMITED ABDOMINAL ULTRASOUND: Sonographic evaluation of the gallbladder and common bile duct was performed. The gallbladder is contracted. The patient is recently postprandial. No obvious stones or sludge are seen. No pericholecystic fluid or gallbladder wall thickening is present. The exam is limited due to the contracted gallbladder. The common duct is within normal limits at 0.5 cm. IMPRESSION: Suboptimal examination. No obvious cholelithiasis. No biliary ductal dilatation.
--- NOTE | 2018-11-30 15:11 | W.ED.GENAD ---
Discharge Plan Disposition Patient Disposition: HOME Condition: Good Discharge Details Chief Complaint: Abd Prob Clinical Impression: Biliary colic Primary Care Provider: Ashely Mueller ED Provider: Kartik Sullivan Home Meds and New Rx's Prescriptions: No Action clonidine [[id number]] 0.1 mg/24 hr patch weekly 0.1 mg Transdermal Q7D Qty: 4 RF: 1 oxycodone 15 mg tablet 30 mg PO Q4H MDD 180mg Qty: 60 RF: 0 promethazine 25 mg tablet 25 mg PO Q6H PRN (Reason: nausea and vomiting) Qty: 12 RF: 0 amlodipine 5 mg Tablet 5 mg PO DAILY Qty: 30 RF: 0 lidocaine [Lidoderm] 5 % Adhesive Patch,Medicated 1 patch topical DAILY@1800 Qty: 14 RF: 0 docusate sodium [Colace] 100 mg Capsule 100 mg PO BID Qty: 60 RF: 0 duloxetine [Cymbalta] 30 mg Capsule,Delayed Release(Dr/Ec) 30 mg PO DAILY Qty: 14 RF: 0 pantoprazole 40 mg Tablet,Delayed Release (Dr/Ec) 40 mg PO BID@07,1999 Qty: 60 RF: 0 ibuprofen [IBU] 800 mg Tablet 800 mg PO TID PRN (Reason: Pain) Qty: 90 RF: 3 acetaminophen [Mapap Extra Strength] 500 mg Tablet 1,000 mg PO Q8H PRN PRNQty: 90 RF: 3 Narcan 4 mg/actuation spray,non-aerosol 1 spray HALEY Q2-3M PRN (Reason: opioid overdose) Qty: 2 RF: 0 Discharge Instructions Instructions: Low Fat Diet (ED), Abdominal Pain (ED) Additional Instructions: Your symptoms are concerning for biliary colic from your gallbladder. Please avoid dairy, any fatty foods, or milk. Please follow-up closely with your primary care provider. The surgeon will contact you when the appointment has been scheduled. If you notice any worsening of your symptoms, or any new symptoms such as vomiting, diarrhea, fever, chills, shortness of breath, chest pain, numbness, weakness, or fainting , please return immediately to the emergency department for reevaluation. Please follow up with your primary care provider as soon as possible for reassessment and reevaluation. As always, it was a pleasure participating in your medical care today. 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 He was here early this morning we had a CT scan and labs that were performed, unfortunately after getting Dilaudid he is feeling much better and left before any results have returned. He left AGAINST MEDICAL ADVICE at that time. The results and the CT scans results were discussed with him via phone afterwards but he did not want to come back as he stated he was feeling much better. He been doing well throughout the day until he ate a turkey sandwich with mayonnaise roughly 1 hour ago redeveloped notable return of his pain which she describes as right upper quadrant pain with radiation to his back. He has had no vomiting or diarrhea. He has been taking his oxycodone's as directed. Exam demonstrates notable right upper quadrant abdominal pain that is reproducible with a positive Mckeon sign. Differential certainly does include gallbladder pathology. Review of the previous CT scan reveals a benign gallbladder per the virtual radiologist. Liver function and biliary levels were not evaluated on the last visit we will add this at this time. I do not think that a repeat CT scan is indicated with his excellent tolerance of p.o. and a negative CT scan earlier. We did recommend Bentyl and Toradol, however the patient is refusing any additional medications at this time. 4:18 PM Patient is feeling better at this time. The ultrasound does show evidence of a contracted gallbladder, bilirubin and liver function is normal. Vital signs are stable. On reevaluation of his morning episode he states that his symptoms came on immediately after he ate a creamy yogurt. I feel there is signs of symptoms at this time are clinically consistent with biliary colic. With normal liver functions, normal bilirubin, and ultrasound showing no evidence of acute cholecystitis as well as a benign CT scan earlier today for any acute process I do not feel that he requires admission or emergent surgical consultation. Recommend a diet appropriate for biliary colic, NSAID use at home, and follow-up on an outpatient basis with surgery that we will help set up. Patient is continued to tolerate p.o. well here. I have extensively reviewed the treatment plan and discharge instructions with the patient. I have addressed all patient concerns at this time. The patient was made aware of what symptoms to monitor for that would warrant a return to the emergency department. Discussed the plan with the patient, they demonstrate verbal understanding and agreement with our assessment and plan at this time. Exam(s) a US:US abdomen limited SYMPTOMS/DIAGNOSIS: RIGHT UPPER QUADRANT PAIN, EVALUATE GALLBLADDER LIMITED ABDOMINAL ULTRASOUND: Sonographic evaluation of the gallbladder and common bile duct was performed. The gallbladder is contracted. The patient is recently postprandial. No obvious stones or sludge are seen. No pericholecystic fluid or gallbladder wall thickening is present. The exam is limited due to the contracted gallbladder. The common duct is within normal limits at 0.5 cm. IMPRESSION: Suboptimal examination. No obvious cholelithiasis. No biliary ductal dilatation. Ordered By: Kartik Sullivan DO [facility] General Date/Time Provider Initiated Documentation: 11/30/18 14:57. 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 The patient was actually seen and assessed here early this morning, he was initially seen by the night physician, had a CT scan and labs that were performed, but unfortunately the patient left AGAINST MEDICAL ADVICE prior to return of all labs and CT scan results. He had been feeling much better at that time after he was given Dilaudid. Eventual CT results and lab results were called to him, and he did not want to come back at that time. He comes back now as he states that his pain and symptoms have returned. He states that he was pain-free the majority of the morning and afternoon until roughly 1 hour ago when he ate a turkey sandwich with mayonnaise. After this he got notable return of his abdominal pain which he now describes as being in the right upper quadrant he describes it as sharp and achy, and it radiates to his back. He denies any tearing sensation. He has been able to eat and drink well otherwise with no associated vomiting or diarrhea. Past surgical history in addition to his previous psoas surgeries is positive for appendectomy however he still has his gallbladder. The patient denies any other complaints at this time. No other modifying factors. He has been taking his home oxycodones as directed. Related Data Home Medications Medication Instructions Recorded Confirmed amlodipine 5 mg PO DAILY #30 tab 09/29/18 11/30/18 docusate sodium [Colace] 100 mg PO BID #60 cap 09/29/18 11/30/18 duloxetine [Cymbalta] 30 mg PO DAILY #14 cap 09/29/18 11/30/18 lidocaine [Lidoderm] 1 patch TOPICAL DAILY@1800 #14 ea 09/29/18 11/30/18 pantoprazole 40 mg PO BID@0730,1999 #60 tab 09/29/18 11/30/18 acetaminophen [Mapap Extra 1,000 mg PO Q8H PRN PRN #90 tab 11/13/18 11/30/18 Strength] ibuprofen [IBU] 800 mg PO TID PRN #90 tab 11/13/18 11/30/18 naloxone [Narcan] 1 spray HALEY Q2-3M PRN #2 each 11/13/18 11/30/18 clonidine 0.1 mg/24 hr weekly 0.1 mg TRANSDERMAL Q7D #4 ea 11/17/18 11/30/18 transdermal patch oxycodone 15 mg tablet 30 mg PO Q4H #60 tab MDD 180mg 11/17/18 11/30/18 promethazine 25 mg tablet 25 mg PO Q6H PRN #12 tab 11/17/18 11/30/18 Previous Rx's Medication Instructions Recorded amlodipine 5 mg PO DAILY #30 tab 09/29/18 docusate sodium [Colace] 100 mg PO BID #60 cap 09/29/18 duloxetine [Cymbalta] 30 mg PO DAILY #14 cap 09/29/18 lidocaine [Lidoderm] 1 patch TOPICAL DAILY@1800 #14 ea 09/29/18 pantoprazole 40 mg PO BID@729,1999 #60 tab 09/29/18 acetaminophen [Mapap Extra 1,000 mg PO Q8H PRN PRN #90 tab 11/13/18 Strength] ibuprofen [IBU] 800 mg PO TID PRN #90 tab 11/13/18 naloxone [Narcan] 1 spray HALEY Q2-3M PRN #2 each 11/13/18 clonidine 0.1 mg/24 hr weekly 0.1 mg TRANSDERMAL Q7D #4 ea 11/17/18 transdermal patch oxycodone 15 mg tablet 30 mg PO Q4H #60 tab MDD 180mg 11/17/18 promethazine 25 mg tablet 25 mg PO Q6H PRN #12 tab 11/17/18 Allergies Allergy/AdvReac Type Severity Reaction Status Date / Time No Known Allergies Allergy Unverified 11/30/18 15:14 General Stated Complaint: Abd Prob DEEPTI: 4 Review of Systems Review of Systems All systems reviewed & are unremarkable except as noted in HPI and below PFSH Social History Smoking/Tobacco Use Status: Current every day Tobacco Type: cigarettes Alcohol Intake: never Drug use: Never Substance use type: does not use Do you feel safe at home: Yes Do you feel safe in your relationship?: Yes Exam Narrative Exam Narrative: 1.Const: Well-nourished, notably obese well-developed, appearing stated age 2.Eyes: PERRL, no conjunctival injection, and symmetrical lids. 3.ENT: Atraumatic external nose and ears. Moist MM. Neck: Symmetric, trachea midline, No thyromegaly. 4.CVS: +S1/S2, No murmurs or gallops. Peripheral pulses 2+ and equal in all extremities. Brisk capillary refill in all extremities. 5.RESP: Unlabored respiratory effort. Clear to auscultation bilaterally. No wheezes rales or rhonchi 6.GI: Soft, Nondistended, No hepatosplenomegaly. No guarding or rebound. Notable reproducible right upper quadrant tenderness with an associated positive Mckeon sign. No pain at McBurney's point. Minimal left-sided abdominal tenderness minimal chronic drainage coming from his chronic wounds from his left flank/thigh. 7.MSK: Normocephalic/Atraumatic, Extremities w/o deformity or ttp No cyanosis or clubbing, Normal movement of all extremities 8.Skin: Warm, Dry. No rashes or lesions. 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 Sensation grossly intact, no focal neurologic deficits. 10.Psych: (AAO) x3. Appropriate mood and affect Course Vital Signs Temperature 37.6 C H 11/30/18 15:01 Pulse 70 11/30/18 15:01 Respiratory Rate 18 11/30/18 15:01 Blood Pressure 157/94 H 11/30/18 15:01 Pulse Oximetry 97 11/30/18 15:01 Temperature 37.6 C H 11/30/18 15:01 Temperature Source Skin 11/30/18 15:01 Pulse 70 11/30/18 15:01 Respiratory Rate 18 11/30/18 15:01 Blood Pressure 157/94 H 11/30/18 15:01 Blood Pressure Position Sitting 11/30/18 15:01 Pulse Oximetry 97 11/30/18 15:01 Oxygen Delivery Method Room Air 11/30/18 15:01 Oxygen Flow Rate 0 11/30/18 15:01 Pain Level 8 11/30/18 15:01
[2018-11-30 16:10] LABS: ALT 22 U/L (12-78); AST 21 U/L (15-37); Albumin 3.4 g/dL (3.4-5.0); Alkaline Phosphatase 118 U/L (46-116); Anion Gap 8.8 mmol/L (3-11); BUN 15 mg/dL (7-18); Bilirubin, Direct 0.11 mg/dL (0.00-0.20); Bilirubin, Total 0.3 mg/dL (0.2-1.0); CO2 27.2 mmol/L (21.0-32.0); CREATININE 1.15 mg/dL (0.70-1.30); Calcium 8.8 mg/dL (8.5-10.1); Chloride 102 mmol/L (98-107); Glucose 101 mg/dL (70-100); Potassium 3.7 mmol/L (3.5-5.1); Sodium 138 mmol/L (136-145); Total Protein 7.8 g/dL (6.4-8.2)
[2018-11-30 16:50] VITALS: BP 157/94; PULSE 70; RESP 18; TEMP 37.4; O2SAT 97
--- NOTE | 2018-11-30 18:37 | NUR.NOTE ---
Nursing Note: Faxed referral to General Surgery for follow up. Nancy Mcgrath.
== END 2018-11-30 16:30 | disposition home or self-care (01) ==
PROVIDERS: Emergency Provider Student in an Organized Health Care Education/Training Program; PCP Nurse Practitioner Family
DX: K80.50 Calculus of bile duct without cholangitis or cholecystitis without obstruction (principal)
CPT/HCPCS: 36415; 80053; 96361; 96372; 96374; 96376; 99284; 99285; 74177; 76705; 82248; 83605; 85025; J3490; Q9967

== ENCOUNTER → 2018-12-03 08:41 | Outpatient (BNVA) | payer MEDICARE, MEDICAID, SELFPAY | PROVIDERS: PCP Nurse Practitioner Family; Referring Provider Nurse Practitioner Family; Visit Provider Surgery | DX: R10.11 Right upper quadrant pain (principal); R10.13 Epigastric pain; R93.3 Abnormal findings on diagnostic imaging of other parts of digestive tract; I10 Essential (primary) hypertension | CPT/HCPCS: 99203; 99214 ==

== ENCOUNTER 2018-12-06 11:24 | Outpatient (CLI) | payer MEDICARE, MEDICAID, SELFPAY ==
[2018-12-06 12:13] LABS: HCT 39.7 % (40.0-50.0); HGB 12.5 g/dL (13.5-17.5); Mean Corp. HGB Concentration 31.5 g/dL (32.0-36.0); Mean Corpuscular Hemoglobin 25.5 pg (27.0-33.0); Mean Platelet Volume 9.5 fL (8.0-11.0); Platelet Count 288 x1000/uL (130-400); RBC Distribution Width 15.1 % (11.8-14.1); White Blood Cell Count 8.66 k/cumm (4.4-10.8)
[2018-12-06 12:53] LABS: ALT 25 U/L (12-78); AST 21 U/L (15-37); Albumin 3.7 g/dL (3.4-5.0); Alkaline Phosphatase 130 U/L (46-116); Anion Gap 8.9 mmol/L (3-11); BUN 16 mg/dL (7-18); Bilirubin, Total 0.4 mg/dL (0.2-1.0); C-Reactive Protein 3.56 mg/dL (0.0-0.3); CO2 27.1 mmol/L (21.0-32.0); CREATININE 1.19 mg/dL (0.70-1.30); Calcium 8.9 mg/dL (8.5-10.1); Chloride 102 mmol/L (98-107); Glucose 122 mg/dL (70-100); Potassium 4.2 mmol/L (3.5-5.1); Sodium 138 mmol/L (136-145); Total Protein 7.4 g/dL (6.4-8.2)
[2018-12-06 13:07] LABS: ESR 49 MM/HR (0-15)
== END 2018-12-06 11:44 ==
PROVIDERS: PCP Nurse Practitioner Family; Visit Provider Student in an Organized Health Care Education/Training Program
DX: K68.12 Psoas muscle abscess (principal); M46.20 Osteomyelitis of vertebra, site unspecified
CPT/HCPCS: 36415; 80053; 85027; 85652; 86140

== ENCOUNTER 2018-12-09 09:10 | Emergency (ER) | payer MEDICARE, MEDICAID, SELFPAY ==
[2018-12-09 09:19] VITALS: BP 163/91; PULSE 76; RESP 18; TEMP 36.5; O2SAT 97
--- NOTE | 2018-12-09 11:37 | W.ED.GENAD ---
Discharge Plan Disposition Patient Disposition: OTHER Condition: Fair Discharge Details Chief Complaint: Orthopedic Clinical Impression: Psoas abscess, left, Uncontrolled pain Primary Care Provider: Ashely Mueller ED Provider: Hamilton Meeks Home Meds and New Rx's Prescriptions: No Action clonidine [[id number]] 0.1 mg/24 hr patch weekly 0.1 mg Transdermal Q7D Qty: 4 RF: 1 oxycodone 15 mg tablet 30 mg PO Q4H MDD 180mg Qty: 60 RF: 0 promethazine 25 mg tablet 25 mg PO Q6H PRN (Reason: nausea and vomiting) Qty: 12 RF: 0 amlodipine 5 mg Tablet 5 mg PO DAILY Qty: 30 RF: 0 lidocaine [Lidoderm] 5 % Adhesive Patch,Medicated 1 patch topical DAILY@1800 Qty: 14 RF: 0 docusate sodium [Colace] 100 mg Capsule 100 mg PO BID Qty: 60 RF: 0 duloxetine [Cymbalta] 30 mg Capsule,Delayed Release(Dr/Ec) 30 mg PO DAILY Qty: 14 RF: 0 pantoprazole 40 mg Tablet,Delayed Release (Dr/Ec) 40 mg PO BID@0730,2000 Qty: 60 RF: 0 ibuprofen [IBU] 800 mg Tablet 800 mg PO TID PRN (Reason: Pain) Qty: 90 RF: 3 acetaminophen [Mapap Extra Strength] 500 mg Tablet 1,000 mg PO Q8H PRN PRNQty: 90 RF: 3 Narcan 4 mg/actuation spray,non-aerosol 1 spray HALEY Q2-3M PRN (Reason: opioid overdose) Qty: 2 RF: 0 Discharge Data Discharge Date/Time-TO BE ENTERED AT DEPARTURE: 12/09/18 18:11 Medical Decision Making Patient presenting to the emergency department for chief complaint of left hip pain. Patient states ongoing chronic infection and abscess of the left hip with concerning findings that may be his spinal hardware is infected. Patient states over the past 4 days he has had significant increase in pain and discomfort, subjective fever with night sweats and decreased range of motion. Physical exam shows a open wound to the anterior surface of the left anterior hip with range of motion no greater than 30 degrees of the hip, no neurological dysfunction distal to this area, patient does have some tenderness to the lower lumbar spine as well. Patient is not febrile hypotensive or tachycardic and appears stable but chronically ill. Exam is otherwise unremarkable. Plan to check labs along with CT imaging for concern of worsening abscess or infection. Pending results patient given hydromorphone for pain control. Review of labs show no leukocytosis, elevated ESR and CRP but not vastly different from baseline, nondiagnostic CMP. Patient reassessed pending CT scan patient continues to have discomfort so additional 1 mg of hydromorphone was ordered. Review of CT scan and speaking with radiologist shows a stable left iliopsoas fluid collection/possible abscess. There is a questionable area inferior to the left hip joint with suspicion of possible hip involvement. Given patient's reported worsening of symptoms I do feel that MRI is also required. Review of previous notes shows that patient has been having a long ongoing process with his hip infection that appears to be stable and shows similar findings to today's CT scan but given the patient has irretractable pain, subjective fevers, there is concern for worsening of condition or need of intervention. Unfortunately after contacting our MRI staff we are unable to perform this imaging. Contacted the [facility] and [facility] both whom stated that they did not have any bed availability to accept this patient and refused admission at this time. They did recommend that patient be admitted to our facility and have intermittent work-up and transfers back and forth to their facility as needed for any specialty testing. Given duration of patient dealing with the current issues of this fluid collection which I am concerned about and speaking with Dr. Restrepo who does feel that patient needs admission to a specialty center I further contacted [facility] in [facility] and spoke with Dr. Perez orthopedist along with nurse practitioner name Rach. After speaking with them patient was accepted in transfer for further evaluation, MRI imaging, and treatment as needed. Patient is in agreement with this plan and remained stable at this time. Patient is still pending blood cultures and wound group that were ordered. Lab Data Lab results reviewed: Yes I reviewed the patient's lab results. Lab Results 12/09/18 12/09/18 12/09/18 Range/Units 11:50 11:50 11:50 WBC 8.43 (4.4-10.8) k/cumm RBC 4.78 (4.50-6.00) m/cumm Hgb 12.2 L (13.5-17.5) g/dL Hct 39.1 L (40.0-50.0) % MCV 81.8 (80-95) fL MCH 25.5 L (27.0-33.0) pg MCHC 31.2 L (32.0-36.0) g/dL RDW 15.2 H (11.8-14.1) % Plt Count 267 (130-400) x1000/uL MPV 9.4 (8.0-11.0) fL Immature Gran % 0.2 Neutrophils % 74.4 Lymphocytes % 19.2 Monocytes % 4.6 Eosinophils % 1.4 Basophils % 0.2 Absolute Neutrophils 6.26 (1.2-6.7) k/cumm Absolute Lymphocytes 1.62 (1.2-3.4) k/cumm Absolute Monocytes 0.39 (0.11-0.7) k/cumm Absolute Eosinophils 0.12 (0.0-0.7) k/cumm Absolute Basophils 0.02 (0.0-0.2) k/cumm ESR (0-15) MM/HR Sodium 139 (136-145) mmol/L Potassium 4.1 (3.5-5.1) mmol/L Chloride 102 (98-107) mmol/L Carbon Dioxide 26.5 (21.0-32.0) mmol/L Anion Gap 10.5 (3-11) mmol/L BUN 16 (7-18) mg/dL Creatinine 1.02 (0.70-1.30) mg/dL Estimated GFR/1.73 m2 >= 60.00 (mL/min/1.73m2) Glucose 104 H (70-100) mg/dL Lactate 1.1 (0.6-1.4) mmol/l Calcium 9.2 (8.5-10.1) mg/dL Total Bilirubin 0.3 (0.2-1.0) mg/dL AST 19 (15-37) U/L ALT 26 (12-78) U/L Alkaline Phosphatase 126 H (46-116) U/L C-Reactive Protein (0.0-0.3) mg/dL Total Protein 7.6 (6.4-8.2) g/dL Albumin 3.4 (3.4-5.0) g/dL 12/09/18 12/09/18 12/09/18 Range/Units 11:50 11:50 11:50 WBC (4.4-10.8) k/cumm RBC (4.50-6.00) m/cumm Hgb (13.5-17.5) g/dL Hct (40.0-50.0) % MCV (80-95) fL MCH (27.0-33.0) pg MCHC (32.0-36.0) g/dL RDW (11.8-14.1) % Plt Count (130-400) x1000/uL MPV (8.0-11.0) fL Immature Gran % Neutrophils % Lymphocytes % Monocytes % Eosinophils % Basophils % Absolute Neutrophils (1.2-6.7) k/cumm Absolute Lymphocytes (1.2-3.4) k/cumm Absolute Monocytes (0.11-0.7) k/cumm Absolute Eosinophils (0.0-0.7) k/cumm Absolute Basophils (0.0-0.2) k/cumm ESR 58 H (0-15) MM/HR Sodium Cancelled (136-145) mmol/L Potassium Cancelled (3.5-5.1) mmol/L Chloride Cancelled (98-107) mmol/L Carbon Dioxide Cancelled (21.0-32.0) mmol/L Anion Gap Cancelled (3-11) mmol/L BUN Cancelled (7-18) mg/dL Creatinine Cancelled (0.70-1.30) mg/dL Estimated GFR/1.73 m2 Cancelled (mL/min/1.73m2) Glucose Cancelled (70-100) mg/dL Lactate (0.6-1.4) mmol/l Calcium Cancelled (8.5-10.1) mg/dL Total Bilirubin Cancelled (0.2-1.0) mg/dL AST Cancelled (15-37) U/L ALT Cancelled (12-78) U/L Alkaline Phosphatase Cancelled (46-116) U/L C-Reactive Protein 2.87 H (0.0-0.3) mg/dL Total Protein Cancelled (6.4-8.2) g/dL Albumin Cancelled (3.4-5.0) g/dL HPI General Mode of arrival: ambulatory. Date/Time Provider Initiated Documentation: 12/09/18 09:37. Limitations to Documentation: no limitations. Information obtained by: patient and RN notes reviewed. History of Present Illness 43 year old M presents to the emergency department with the chief complaint of left hip pain/infection, described as severe and similar to prior episodes, with intensity rated at 9. Quality is described as aching and sharp, and is localized to the left and lower extremity. Patient started experiencing this month(s) (4, worsening over the past 4 days) and it has been constant. No relieving factors improve symptom(s), Related Data Home Medications Medication Instructions Recorded Confirmed amlodipine 5 mg PO DAILY #30 tab 09/29/18 12/09/18 docusate sodium [Colace] 100 mg PO BID #60 cap 09/29/18 12/09/18 duloxetine [Cymbalta] 30 mg PO DAILY #14 cap 09/29/18 12/09/18 lidocaine [Lidoderm] 1 patch TOPICAL DAILY@1800 #14 ea 09/29/18 12/09/18 pantoprazole 40 mg PO BID@0730,2000 #60 tab 09/29/18 12/09/18 acetaminophen [Mapap Extra 1,000 mg PO Q8H PRN PRN #90 tab 11/13/18 12/09/18 Strength] ibuprofen [IBU] 800 mg PO TID PRN #90 tab 11/13/18 12/09/18 naloxone [Narcan] 1 spray HALEY Q2-3M PRN #2 each 11/13/18 12/09/18 clonidine 0.1 mg/24 hr weekly 0.1 mg TRANSDERMAL Q7D #4 ea 11/17/18 12/09/18 transdermal patch oxycodone 15 mg tablet 30 mg PO Q4H #60 tab MDD 180mg 11/17/18 12/09/18 promethazine 25 mg tablet 25 mg PO Q6H PRN #12 tab 11/17/18 12/09/18 Previous Rx's Medication Instructions Recorded amlodipine 5 mg PO DAILY #30 tab 09/29/18 docusate sodium [Colace] 100 mg PO BID #60 cap 09/29/18 duloxetine [Cymbalta] 30 mg PO DAILY #14 cap 09/29/18 lidocaine [Lidoderm] 1 patch TOPICAL DAILY@1800 #14 ea 09/29/18 pantoprazole 40 mg PO BID@0730,1999 #60 tab 09/29/18 acetaminophen [Mapap Extra 1,000 mg PO Q8H PRN PRN #90 tab 11/13/18 Strength] ibuprofen [IBU] 800 mg PO TID PRN #90 tab 11/13/18 naloxone [Narcan] 1 spray HALEY Q2-3M PRN #2 each 11/13/18 clonidine 0.1 mg/24 hr weekly 0.1 mg TRANSDERMAL Q7D #4 ea 11/17/18 transdermal patch oxycodone 15 mg tablet 30 mg PO Q4H #60 tab MDD 180mg 11/17/18 promethazine 25 mg tablet 25 mg PO Q6H PRN #12 tab 11/17/18 Allergies Allergy/AdvReac Type Severity Reaction Status Date / Time No Known Allergies Allergy Verified 12/09/18 09:27 General Stated Complaint: Orthopedic DEEPTI: 3 Review of Systems Constitutional Reports chills, Reports fever(s) and Reports malaise Cardiovascular Denies chest pain and Denies dyspnea Respiratory Denies dyspnea Gastrointestinal Reports abdominal pain (LLQ) Genitourinary Denies difficulty urinating, Denies urinary frequency, Denies urinary hesitancy and Denies urinary incontinence Musculoskeletal Reports as per HPI, Reports back pain, Reports arthralgias, Denies numbness and Denies tingling Integumentary/Breasts Reports as per HPI and Reports wounds Neurologic Denies numbness, Denies sensory deficit and Denies tingling PFSH Medical History Affective personality disorder (Chronic) Anxiety (Chronic) Bipolar 2 disorder (Chronic) Depression (Chronic) GERD (gastroesophageal reflux disease) (Chronic) HTN (hypertension) (Chronic) Hepatitis C (Chronic) History of alcohol abuse (Chronic) History of intravenous drug abuse (Chronic) Hyperlipidemia (Chronic) Kidney stones (Chronic) PTSD (post-traumatic stress disorder) (Chronic) TBI (traumatic brain injury) (Chronic) Surgical History Appendectomy Colonoscopy - MAC (11/14/16) EGD - MAC (11/14/16) Rotator Cuff Repair Spinal Fusion Vasectomy Social History Smoking/Tobacco Use Status: Current every day Tobacco Type: cigarettes Alcohol Intake: never Drug use: Never Substance use type: does not use Do you feel safe at home: Yes Do you feel safe in your relationship?: Yes Exam Const General: cooperative, no acute distress and not diaphoretic Nutritional Appearance: obese Orientation: alert, awake and oriented x3 Resp Effort & Inspection: normal respiratory effort and able to speak in complete sentences Cardio Rate: regular rate and not tachycardic Rhythm: regular rhythm Heart Sounds: S1 normal and S2 normal GI Palpation: soft, no guarding, not rigid and nontender Auscultation: normal bowel sounds Back/Spine/Pelvis Back: no CVA tenderness Thoracic/Lumbar Spine: surgical scar(s) present, paraspinal tenderness (Left lower lumbar), No thoracic spinal tenderness, lumbar spinal tenderness and straight leg raise positive Extrem Left lower extremity: hip/thigh Details: tenderness Location: of the proximal upper leg Location: anteriorly and abnormal ROM Details: pain with active ROM, pain with passive ROM and with range as follows (Flexion maximum of 30 degrees), knee Details: normal to inspection and normal ROM; no tenderness and foot Details: normal capillary refill, normal to inspection and vascular exam Details: dorsalis pedis pulse present and posterior tibial pulse present Course Vital Signs Temperature 36.5 C 12/09/18 09:19 Pulse 76 12/09/18 09:19 Respiratory Rate 18 12/09/18 09:19 Blood Pressure 163/91 H 12/09/18 09:19 Pulse Oximetry 97 12/09/18 09:19 Temperature 36.5 C 12/09/18 09:19 Temperature Source Skin 12/09/18 09:19 Pulse 76 12/09/18 09:19 Respiratory Rate 18 12/09/18 09:19 Respiratory Effort 12/09/18 09:27 Blood Pressure 163/91 H 12/09/18 09:19 Blood Pressure Position Sitting 12/09/18 09:19 Pulse Oximetry 97 12/09/18 09:19 Oxygen Delivery Method Room Air 12/09/18 09:19 Oxygen Flow Rate 0 12/09/18 09:19 Pain Level 9 12/09/18 09:28 Lab/Test Results Lab/Test Results: 12/09/18 11:00 Hip - Left Wound Culture - Pending 12/09/18 11:00 Hip - Left Gram Stain - Pending 12/09/18 09:59 Blood Blood Culture - Pending 12/09/18 09:59 Blood Blood Culture - Pending
[2018-12-09 11:59] LABS: Lactate-non-spesis 1.1 mmol/l (0.6-1.4)
[2018-12-09 12:03] LABS: Abs Immature Grans 0.02 k/cumm (0.0-0.09); Absolute Basophil Count 0.02 k/cumm (0.0-0.2); Absolute Eosinophil Count 0.12 k/cumm (0.0-0.7); Absolute Lymphocyte Count 1.62 k/cumm (1.2-3.4); Absolute Monocyte Count 0.39 k/cumm (0.11-0.7); Absolute Neutrophil Count 6.26 k/cumm (1.2-6.7); Basophils % 0.2; Eosinophils % 1.4; HCT 39.1 % (40.0-50.0); HGB 12.2 g/dL (13.5-17.5); Immature Grans % 0.2; Lymphocytes % 19.2; Mean Corp. HGB Concentration 31.2 g/dL (32.0-36.0); Mean Corpuscular Hemoglobin 25.5 pg (27.0-33.0); Mean Corpuscular Volume 81.8 fL (80-95); Mean Platelet Volume 9.4 fL (8.0-11.0); Monocytes % 4.6; Neutrophils % 74.4; Platelet Count 267 x1000/uL (130-400); RBC 4.78 m/cumm (4.50-6.00); RBC Distribution Width 15.2 % (11.8-14.1); White Blood Cell Count 8.43 k/cumm (4.4-10.8)
[2018-12-09] MEDS: Normal Saline Flush 10 ML SYR IVP (12:14)
[2018-12-09] MEDS: HYDROmorphone 2 MG/ML VIAL 1 MG IVP ×2 (12:14→14:15)
[2018-12-09 12:17] LABS: C-Reactive Protein 2.87 mg/dL (0.0-0.3)
[2018-12-09 12:41] LABS: ESR 58 MM/HR (0-15)
[2018-12-09 13:12] VITALS: BP 146/102; PULSE 69; RESP 22; TEMP 36.4; O2SAT 97
[2018-12-09] MEDS: Omnipaque 350 MG/ML 100 ML BTL IJ (13:22)
--- NOTE | 2018-12-09 13:27 | DI.CT_ITS ---
SYMPTOMS/DIAGNOSIS: BACK AND LEFT HIP PAIN 1 MO POSTSURGICAL ABDOMINAL AND PELVIC CT: CT examination of the abdomen and pelvis was performed with a bolus infusion of 100 cc of Omnipaque 350. Note is again made of previously noted Parod rods in place at L3-4 with prosthetic disc implants at L3-4 and L4-5. The findings appear grossly unchanged from CT of 11/30/2018. No gross erosive or destructive process seen involving the lumbar spine. Previously noted left iliopsoas/retroperitoneal deformity again noted with fluid and/or hemorrhage and fibrotic changes associated extending to the left inguinal region. The findings appear unchanged in comparison with the previous examination. No new retroperitoneal fluid collections seen. No evidence of bowel obstruction. No abdominal wall hematoma. No specific abnormality seen involving the left hip except for mild degenerative changes. Liver, spleen and pancreas are unremarkable. Lung bases are clear. Adrenals and kidneys appear normal. Abdominal aorta is of normal diameter and no major vascular abnormality is seen. No adenopathy identified in the abdomen or pelvis. CONCLUSION: Stable appearance of left iliopsoas findings since 11/30/18. The findings appear consistent with resolving hemorrhage, fluid collection or abscess. Areas of questionable fluid attenuation at the inferior limit of the described findings lie close to the left hip joint and if there is a clinical suspicion of hip involvement, additional evaluation with MRI would be recommended.
[2018-12-09] MEDS: Ketorolac 30 MG/ML VIAL IVP (15:53)
[2018-12-09 16:34] LABS: ALT 26 U/L (12-78); AST 19 U/L (15-37); Albumin 3.4 g/dL (3.4-5.0); Alkaline Phosphatase 126 U/L (46-116); Anion Gap 10.5 mmol/L (3-11); BUN 16 mg/dL (7-18); Bilirubin, Total 0.3 mg/dL (0.2-1.0); CO2 26.5 mmol/L (21.0-32.0); CREATININE 1.02 mg/dL (0.70-1.30); Calcium 9.2 mg/dL (8.5-10.1); Chloride 102 mmol/L (98-107); Glucose 104 mg/dL (70-100); Potassium 4.1 mmol/L (3.5-5.1); Sodium 139 mmol/L (136-145); Total Protein 7.6 g/dL (6.4-8.2)
[2018-12-09] MEDS: fentaNYL 100 MCG/2 ML VIAL 50 MCG IVP (17:25)
[2018-12-09 18:10] VITALS: BP 137/89; PULSE 68; RESP 22; TEMP 36.4; O2SAT 97
== END 2018-12-09 18:11 | disposition other institution (70) ==
PROVIDERS: Emergency Provider Nurse Practitioner Family; PCP Nurse Practitioner Family
DX: K68.12 Psoas muscle abscess (principal); B95.61 Methicillin susceptible Staphylococcus aureus infection as the cause of diseases classified elsewhere; R52 Pain, unspecified; Z98.890 Other specified postprocedural states; I10 Essential (primary) hypertension
CPT/HCPCS: 36415; 80053; 85652; 87040; 87077; 96374; 96375; 96376; 99285; 74177; 83605; 85025; 86140; 87070; 87186; 87205; 99284; J1885; J3010; J3490

== ENCOUNTER 2018-12-16 14:30 | Inpatient (IN) | payer MEDICARE, MEDICAID, SELFPAY ==
[2018-12-16 14:30] VITALS: BP 159/117; PULSE 74; RESP 18; TEMP 36.6; O2SAT 99
[2018-12-16 14:45] VITALS: BP 151/98
--- NOTE | 2018-12-16 14:59 | PDOC.CMPRO ---
- If Service Date Differs Date of service: 12/16/18 Time of Service: 15:00 Care Management Progress Note Jason was placed in a swingbed level of care today after a week long stay at [facility]. Jason is in need of 6 weeks of IV antibiotics. CM met with Jason and completed swingbed contracted which was distributed accordingly.
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
[2018-12-16 17:19] VITALS: BP 151/98; PULSE 88; RESP 18; TEMP 36.6; O2SAT 99
[2018-12-16 17:24] VITALS: BP 151/98; PULSE 88; RESP 18; TEMP 36.6; O2SAT 99
[2018-12-16] MEDS: oxyCODONE 15 MG TAB 30 MG PO ×2 (19:38→23:38)
[2018-12-16] MEDS: Enoxaparin 40 MG/0.4 ML SYR SC (19:39)
[2018-12-16] MEDS: Docusate Sodium 100 MG CAP PO (19:39)
[2018-12-16] MEDS: Pantoprazole 40 MG TABCR PO (19:39)
[2018-12-16] MEDS: Normal Saline Flush 10 ML SYR 20 ML IVP (19:39)
[2018-12-16] MEDS: Patch Removal 1 EACH TP (19:40)
[2018-12-17] MEDS: oxyCODONE 15 MG TAB 30 MG PO ×6 (03:52→23:36)
[2018-12-17 06:29] LABS: Abs Immature Grans 0.02 k/cumm (0.0-0.09); Absolute Basophil Count 0.02 k/cumm (0.0-0.2); Absolute Eosinophil Count 0.25 k/cumm (0.0-0.7); Absolute Lymphocyte Count 2.25 k/cumm (1.2-3.4); Absolute Monocyte Count 0.54 k/cumm (0.11-0.7); Basophils % 0.2; Eosinophils % 2.9; HCT 34.1 % (40.0-50.0); Immature Grans % 0.2; Lymphocytes % 25.9; Mean Corp. HGB Concentration 32.3 g/dL (32.0-36.0); Mean Corpuscular Hemoglobin 26.1 pg (27.0-33.0); Mean Corpuscular Volume 80.8 fL (80-95); Mean Platelet Volume 9.3 fL (8.0-11.0); Monocytes % 6.2; Neutrophils % 64.6; Platelet Count 232 x1000/uL (130-400); RBC 4.22 m/cumm (4.50-6.00); RBC Distribution Width 15.2 % (11.8-14.1); White Blood Cell Count 8.68 k/cumm (4.4-10.8)
[2018-12-17 06:50] LABS: Anion Gap 11.3 mmol/L (3-11); BUN 14 mg/dL (7-18); C-Reactive Protein 3.81 mg/dL (0.0-0.3); CO2 27.7 mmol/L (21.0-32.0); CREATININE 1.16 mg/dL (0.70-1.30); Calcium 8.7 mg/dL (8.5-10.1); Chloride 101 mmol/L (98-107); Glucose 102 mg/dL (70-100); Magnesium 2.1 mg/dL (1.8-2.4); Potassium 3.6 mmol/L (3.5-5.1); Sodium 140 mmol/L (136-145)
[2018-12-17 07:13] LABS: ESR 60 MM/HR (0-15)
[2018-12-17] MEDS: DULoxetine 30 MG CAP PO (07:42)
[2018-12-17] MEDS: Ibuprofen 800 MG TAB PO (07:43)
[2018-12-17] MEDS: Docusate Sodium 100 MG CAP PO ×2 (07:44→19:43)
[2018-12-17] MEDS: amLODIPine 5 MG TAB PO (07:44)
[2018-12-17] MEDS: Pantoprazole 40 MG TABCR PO ×2 (07:44→19:43)
[2018-12-17] MEDS: Normal Saline Flush 10 ML SYR IVP ×3 (07:45→23:37)
[2018-12-17] MEDS: Lidocaine 5% Patch 1 PATCH TP (07:47)
[2018-12-17 07:55] VITALS: O2SAT 98
[2018-12-17 08:02] VITALS: BP 140/84; PULSE 68; RESP 16; TEMP 36.2; O2SAT 97
--- NOTE | 2018-12-17 08:40 | CM.SBPSYCH ---
- If Service Date Differs Date of service: 12/17/18 Time of Service: 08:40 SB Psychosocial/Act.Assessment - Hospital Admission Admission Date: 12/16/18 [facility] Diagnosis:: (L) Hip Abscess - Swing Bed Admission Swing Bed Admit Date:: 12/16/18 Swing Bed Level of Care: Level 1/SNF - Social Supports PREVIOUS FUNCTIONAL STATUS/SOCIAL/FAMILY SUPPORTS:: Jason resides in [facility] with his roommate. He has a brother whom is local whom is supportive to him at times. Jason is unable to fully engage during discussion today due to medications. - Prior to Admission Living Arrangements/Environment Prior to Admission:: Jason resides - Work History Employment Status:: Disabled - [place]: No 's Spouse: No - Benefits Financial: Medicare, Medicaid - [employer] Active Mormon Member:: No Will Mormon Members or Practice Lead Visit:: No - Advance Directives for Healthcare If no AD, do you want more information:: No - Community Community Supports/Involvement: Jason has a brother and friend in the community. - Interests Hobbies:: Sudoku, adult coloring, watching movies Crafts:: Coloring - Present Functional Status Physical Abilities:: ambulates independently with a cane Cognitive:: A&O Communication:: pleasant/effective Sensory Systems: Glasses Behavior:: pleasant - Medical History PAST MEDICAL HISTORY/PAST SURGICAL HISTORY:: Affective personality disorder (Chronic). Anxiety (Chronic). Bipolar 2 disorder (Chronic). Depression (Chronic). GERD (gastroesophageal reflux disease) (Chronic). HTN (hypertension) (Chronic). Hepatitis C (Chronic). History of alcohol abuse (Chronic). History of intravenous drug abuse (Chronic). Hyperlipidemia (Chronic). Kidney stones (Chronic). PTSD (post-traumatic stress disorder) (Chronic). TBI (traumatic brain injury) (Chronic). Appendectomy. Colonoscopy - MAC (11/14/16). EGD - MAC (11/14/16). Rotator Cuff Repair. Spinal Fusion. Vasectomy General Health:: Fair Past Psychiatric Treatment:: n/a - Admission Data Reason for Swing Bed Admission:: IV antibiotics (Oxicillin) Q4H x 6 weeks Discharge Plan:: Jason will return to the community once course of IV antibiotics is complete. Assessment: Jason is a pleasant 43 y/o male admitted to [facility] 12/16/18 after a one week stay at [facility]. Jason is in need of Q4H IV Oxicillin x 6 weeks prior to returning home. Coil Builder: Ami Dumont Date Assessment was completed:: 12/17/18
--- NOTE | 2018-12-17 08:49 | CMSA_ITS ---
- If Service Date Differs Date of service: 12/17/18 Time of Service: 08:40 SB Psychosocial/Act.Assessment - Hospital Admission Admission Date: 12/16/18 [facility] Diagnosis:: (L) Hip Abscess - Swing Bed Admission Swing Bed Admit Date:: 12/16/18 Swing Bed Level of Care: Level 1/SNF - Social Supports PREVIOUS FUNCTIONAL STATUS/SOCIAL/FAMILY SUPPORTS:: Jason resides in [facility] with his roommate. He has a brother whom is local whom is supportive to him at times. Jason is unable to fully engage during discussion today due to medications. - Prior to Admission Living Arrangements/Environment Prior to Admission:: Jason resides - Work History Employment Status:: Disabled - [place]: No 's Spouse: No - Benefits Financial: Medicare, Medicaid - Lutheran Active Pentecostal Member:: No Will Pentecostal Members or Tobacco Sampler Visit:: No - Advance Directives for Healthcare If no AD, do you want more information:: No - Community Community Supports/Involvement: Jason has a brother and friend in the community. - Interests Hobbies:: Sudoku, adult coloring, watching movies Crafts:: Coloring - Present Functional Status Physical Abilities:: ambulates independently with a cane Cognitive:: A&O Communication:: pleasant/effective Sensory Systems: Glasses Behavior:: pleasant - Medical History PAST MEDICAL HISTORY/PAST SURGICAL HISTORY:: Affective personality disorder (Chronic). Anxiety (Chronic). Bipolar 2 disorder (Chronic). Depression (Chronic). GERD (gastroesophageal reflux disease) (Chronic). HTN (hypertension) (Chronic). Hepatitis C (Chronic). History of alcohol abuse (Chronic). History of intravenous drug abuse (Chronic). Hyperlipidemia (Chronic). Kidney stones (Chronic). PTSD (post-traumatic stress disorder) (Chronic). TBI (traumatic brain injury) (Chronic). Appendectomy. Colonoscopy - MAC (11/14/16). EGD - MAC (11/14/16). Rotator Cuff Repair. Spinal Fusion. Vasectomy General Health:: Fair Past Psychiatric Treatment:: n/a - Admission Data Reason for Swing Bed Admission:: IV antibiotics (Oxicillin) Q4H x 6 weeks Discharge Plan:: Jason will return to the community once course of IV antibiotics is complete. Assessment: Jason is a pleasant 43 y/o male admitted to [facility] 12/16/18 after a one week stay at [facility]. Jason is in need of Q4H IV Oxicillin x 6 weeks prior to returning home. Microsoft Crm Developer: Ami Dumont Date Assessment was completed:: 12/17/18
--- NOTE | 2018-12-17 08:49 | CM.SWINGPC ---
- If Service Date Differs Date of service: 12/17/18 Time of Service: 08:49 Swingbed Plan of Care Plan of care: SWING BED PROGRAM ACTIVITIES/DISCHARGE PLAN OF CARE ACTIVITIES PLAN Date:12/17/18 Identified Need: Individual activities Intervention/Plan: TV provided in Room Activity cart available Therapy Dogs to visit when available Reiki Available Music therapy when available Reading materials available. Initials MM DISCHARGE PLAN Date:12/17/18 Identified Need: F/U appointments ?DME Intervention/Plan: Appointments to be scheduled with providers at time of DC DME to be ordered through DME of choice if required. Initials [facility]
--- NOTE | 2018-12-17 09:20 | NUR.NOTE ---
Nursing Note: 0830: pt gives RN 2 clonidine patches in prescription box. medication sent to pharmacy to be labeled for use as patient's own medication.
--- NOTE | 2018-12-17 09:21 | NUR.NOTE ---
Nursing Note: 0840: pt unsure when clonidine patch fell off. no patch present this am with assessment.
--- NOTE | 2018-12-17 11:13 | NUR.NOTE ---
Nursing Note: Patient stated he has been feeling more depressed recently. Patient verbalizes he wants his friends and family to stop talking to him and visiting and states he feels he just needs space. Patient denies any suicidal ideations the past couple days but has had them in the past week. Patient states he is just feeling very down with his current medical condition. Patient is on an antidepressant currently and feels his current dose is appropriate. [facility] notified
--- NOTE | 2018-12-17 15:37 | PHARADMIT ---
Addendum entered by Susannah Aguirre 12/23/18 13:07: Pharmacy Note Subjective Oxacillin 2gram IV Q4h for 6 weeks of treatment started 12/13/18. Psych consult today Objective pain 8/10, Assessment nutrition is following, no new meds Plan duloxetine dose may be increased per MD note Addendum entered by Dary Rivera 12/21/18 11:28: Pharmacy Note Subjective US was negative per progress note; MD thinks most likely etiology is heartburn/GERD Objective BP-136/97 afebrile Assessment Oxacillin 2gram IV Q4h for 6 weeks of treatment started 12/13/18 enoxaparin discontinued, calcium carbonate ordered PRN Pt's own Clonidine patch is upstairs in med cassette Plan possible nutrition consult? Addendum entered by Dary Rivera 12/20/18 11:20: Pharmacy Note Subjective pt. not sleeping well, complained of possible gallbladder pain following eating pizza per nursing report Objective VS-okay Assessment Oxacillin 2gram IV Q4h for 6 weeks of treatment started 12/13/18 no med changes so far today Pt's own Clonidine patch is upstairs in med cassette Plan US of abdomen ordered Possibility of continuing therapy at home, CM working on it Addendum entered by Elen Balderas 12/19/18 13:16: Pharmacy Note Subjective c/o discomfort around PICC line-looks good per RN More engaged yesterday, cheerful, talkative Objective VS ok, pain 7/10, no labs Assessment Oxacillin 2gram IV Q4h for 6 weeks of treatment started 12/13/18 Pt's own Clonidine patch is upstairs in med cassette, although we do stock it as non-formulary No med changes today Plan Possibility of continuing therapy at home, CM working on it end date: aprox 01/23/19 Addendum entered by Elen Balderas 12/18/18 13:18: Pharmacy Note Subjective SWINGBED LEVEL-1 for Psoas abscess Objective VS ok, pain 6/10, no labs/lytes today Micro hip collected 12/09/18: Staph Aureus Assessment Oxacillin 2gram IV Q4h for 6 weeks of treatment started 12/13/18 Plan end date: aprox 01/23/19 Possibility of continuing therapy at home, CM working on it Possible need for Psych consult-patient has been here numerous times, well known by staff Original Note: Admission Pharmacy Clinical Review Code Status Full Code Current Weight 137.2 kg Renally Cleared and Narrow Therapeutic Index Meds N/A QTc Value / Action Taken N/A BP Control, Fever 140/84; afebrile Electrolytes reviewed all WNL DVT Prophylaxis Enoxaparin 40mg Opiate Usage / Scheduled Bowel Regimen Ordered n/a Plt/SCr for Heparin / Enoxaparin 232/1.16 INR for Warfarin H/H stable, WBC/Bands H/H 11/34.1; WBC 8.86 Antibiotic appropriateness Yes -- ID rec'd Cultures and Sensitivities None pending Surgical ABX d/c within 24 hr n/a DM control / Insulin Dosing BG 102; no hx dm Heart Failure (Check EF%) (PAMELA's, B-Block, Diuretics) amlodipine (not ordered), clonidine 0.1mg patch weekly IV to PO Switch n/a Home Meds Reviewed yes Home Meds Not Ordered ALL ORDERED Comments Patient moved to [facility] as he receives 6 weeks of IV oxacillin
[2018-12-17] MEDS: Lactobacillus Acidophilus CAP 1 CAP PO ×2 (16:24→19:43)
[2018-12-17] MEDS: Enoxaparin 40 MG/0.4 ML SYR SC (19:44)
[2018-12-17] MEDS: Normal Saline Flush 10 ML SYR 20 ML IVP (19:45)
[2018-12-17] MEDS: Patch Removal 1 EACH TP (19:53)
--- NOTE | 2018-12-17 20:14 | NUR.NOTE ---
Nursing Note: At 16:30 Pt came back from out on pass. Complained of pain on left PICC site, flushed , patent and with good blood returned. circumference measured as 39 cm, slightly decreased compared to report received as 41 cm. charge weigher obtained MD order of additional patch to be placed on left hip starts tomorrow as per pt request. Pain well managed of oxycodone as scheduled.Pt verbalized of loneliness and aimed for fast recovery. Continue to monitor.
[2018-12-18] MEDS: oxyCODONE 15 MG TAB 30 MG PO ×6 (04:16→23:21)
[2018-12-18] MEDS: Normal Saline Flush 10 ML SYR IVP ×3 (04:20→23:22)
[2018-12-18 07:40] VITALS: O2SAT 98
[2018-12-18 07:45] VITALS: BP 125/77; PULSE 71; RESP 18; TEMP 36.4; O2SAT 97
[2018-12-18] MEDS: Lactobacillus Acidophilus CAP 1 CAP PO ×3 (07:59→19:27)
[2018-12-18] MEDS: Pantoprazole 40 MG TABCR PO ×2 (07:59→19:28)
[2018-12-18] MEDS: Docusate Sodium 100 MG CAP PO ×2 (07:59→19:27)
[2018-12-18] MEDS: amLODIPine 5 MG TAB PO (07:59)
[2018-12-18] MEDS: Lidocaine 5% Patch 2 PATCH TP (08:00)
[2018-12-18] MEDS: DULoxetine 30 MG CAP PO (08:00)
[2018-12-18] MEDS: Normal Saline Flush 10 ML SYR 20 ML IVP ×2 (08:01→19:29)
[2018-12-18] MEDS: Ibuprofen 800 MG TAB PO ×2 (11:00→20:32)
[2018-12-18 23:03] VITALS: O2SAT 97
[2018-12-19] MEDS: oxyCODONE 15 MG TAB 30 MG PO ×6 (03:25→23:29)
[2018-12-19] MEDS: Pantoprazole 40 MG TABCR PO ×2 (08:15→19:35)
[2018-12-19] MEDS: Docusate Sodium 100 MG CAP PO ×2 (08:15→19:35)
[2018-12-19] MEDS: Normal Saline Flush 10 ML SYR 20 ML IVP ×2 (08:15→19:34)
[2018-12-19] MEDS: DULoxetine 30 MG CAP PO (08:15)
[2018-12-19] MEDS: amLODIPine 5 MG TAB PO (08:15)
[2018-12-19] MEDS: Lactobacillus Acidophilus CAP 1 CAP PO ×3 (08:15→19:35)
[2018-12-19 08:36] VITALS: BP 147/97; PULSE 66; RESP 18; TEMP 36.3; O2SAT 100
[2018-12-19] MEDS: Normal Saline Flush 10 ML SYR IVP ×2 (11:55→16:35)
[2018-12-19] MEDS: Lidocaine 5% Patch 2 PATCH TP (12:02)
--- NOTE | 2018-12-19 12:16 | NUR.NOTE ---
Nursing Note: pt had declined lidocaine patches for the 30 administration and requests that they be placed at lunch time. per pt request, lidocaine patches placed; one to lower back and one to left hip
[2018-12-19] MEDS: Mylanta Suspension 30 ML CUP PO (17:55)
[2018-12-19] MEDS: Patch Removal 1 EACH TP (22:38)
[2018-12-20] MEDS: Ibuprofen 800 MG TAB PO ×2 (02:18→19:54)
[2018-12-20] MEDS: Normal Saline Flush 10 ML SYR IVP ×2 (03:21→23:30)
[2018-12-20] MEDS: oxyCODONE 15 MG TAB 30 MG PO ×6 (03:22→23:29)
[2018-12-20] MEDS: Acetaminophen 325 MG TAB PO ×2 (03:22→11:16)
[2018-12-20 06:54] LABS: Platelet Count 230 x1000/uL (130-400)
[2018-12-20] MEDS: Lidocaine 5% Patch 2 PATCH TP (07:46)
[2018-12-20] MEDS: Docusate Sodium 100 MG CAP PO ×2 (07:47→19:55)
[2018-12-20] MEDS: DULoxetine 30 MG CAP PO (07:47)
[2018-12-20] MEDS: Pantoprazole 40 MG TABCR PO ×2 (07:47→19:55)
[2018-12-20] MEDS: amLODIPine 5 MG TAB PO (07:47)
[2018-12-20] MEDS: Lactobacillus Acidophilus CAP 1 CAP PO ×3 (07:47→19:55)
[2018-12-20] MEDS: Normal Saline Flush 10 ML SYR 20 ML IVP ×2 (07:47→19:54)
[2018-12-20 08:10] VITALS: BP 137/81; PULSE 64; RESP 20; TEMP 37; O2SAT 96
[2018-12-20 10:11] LABS: Abs Immature Grans 0.02 k/cumm (0.0-0.09); Absolute Basophil Count 0.02 k/cumm (0.0-0.2); Absolute Lymphocyte Count 1.78 k/cumm (1.2-3.4); Absolute Monocyte Count 0.27 k/cumm (0.11-0.7); Absolute Neutrophil Count 3.52 k/cumm (1.2-6.7); Basophils % 0.3; Eosinophils % 5.1; HGB 11.2 g/dL (13.5-17.5); Immature Grans % 0.3; Lymphocytes % 30.1; Mean Corpuscular Hemoglobin 26.3 pg (27.0-33.0); Mean Corpuscular Volume 82.2 fL (80-95); Mean Platelet Volume 9.1 fL (8.0-11.0); Monocytes % 4.6; Neutrophils % 59.6; Platelet Count 215 x1000/uL (130-400); RBC 4.26 m/cumm (4.50-6.00); RBC Distribution Width 15.1 % (11.8-14.1); White Blood Cell Count 5.91 k/cumm (4.4-10.8)
[2018-12-20 10:18] LABS: Lipase 92 U/L (73-393)
[2018-12-20 10:21] LABS: ALT 21 U/L (12-78); AST 15 U/L (15-37); Albumin 3.1 g/dL (3.4-5.0); Alkaline Phosphatase 121 U/L (46-116); Anion Gap 8.9 mmol/L (3-11); BUN 16 mg/dL (7-18); Bilirubin, Direct 0.05 mg/dL (0.00-0.20); Bilirubin, Total 0.2 mg/dL (0.2-1.0); C-Reactive Protein 2.48 mg/dL (0.0-0.3); CO2 28.1 mmol/L (21.0-32.0); Calcium 8.7 mg/dL (8.5-10.1); Chloride 103 mmol/L (98-107); Glucose 160 mg/dL (70-100); Potassium 3.9 mmol/L (3.5-5.1); Sodium 140 mmol/L (136-145); Total Protein 7.1 g/dL (6.4-8.2)
--- NOTE | 2018-12-20 14:06 | DI.US_ITS ---
SYMPTOMS/DIAGNOSIS: RIGHT UPPER QUADRANT PAIN ABDOMINAL ULTRASOUND: Comparison is made with abdominal ultrasound dated November, and CT dated December,. The gallbladder had a normal appearance on the recent CT and it had a somewhat contracted appearance by ultrasound. The liver is mildly enlarged and shows mild diffuse fatty infiltration. No biliary dilatation is seen. The gallbladder is unremarkable, without evidence of stones or wall thickening. There is no right upper quadrant fluid. The kidneys are unremarkable. The aorta is normal in diameter. The tail of the pancreas is obscured by bowel gas. The spleen is mildly enlarged at 15 cm. IMPRESSION: Mild hepatosplenomegaly. No evidence of gallbladder abnormality.
--- NOTE | 2018-12-20 14:33 | CHAPLAIN ---
Jason and I know each other from another long swing bed hospitalization that Jason had here. He is discouraged today, telling me that he's disappointed to be back here for another six-week course of antibiotics. He is waiting to meet with the hospitalist today as he's uncomfortable and has some questions to ask. I'll continue to visit.
[2018-12-20 16:13] VITALS: BP 129/72; PULSE 66; RESP 20; TEMP 36.3; O2SAT 98
--- NOTE | 2018-12-20 18:08 | W.PM.PROGNOT ---
Date of Service Date of service: 12/20/18 Time of Service: 18:08 Subjective Interval history since last seen: Attempted to see patient - he is not in the room. Jason had reported to nursing that he had RUQ pain after eating pizza and portuguese fries last night. Oxacillin can cause hepatotoxicity, but there is no evidence thereof on his bloodwork today and his US of the RUQ is negative. I feel that the most likely etiology for Jason's symptoms is heartburn/GERD. He is already on protonix 40 mg PO BID and mylanta prn ordered. I will initiate him on tums prn. Also, because he is ambulatory, I do not feel he continues to require chemical DVT ppx. Objective Objective Clinical Data: Abnormal lab results 12/20/18 12/20/18 Range/Units 09:55 09:55 RBC 4.26 L (4.50-6.00) m/cumm Hgb 11.2 L (13.5-17.5) g/dL Hct 35.0 L (40.0-50.0) % MCH 26.3 L (27.0-33.0) pg RDW 15.1 H (11.8-14.1) % Glucose 160 H (70-100) mg/dL Alkaline Phosphatase 121 H (46-116) U/L C-Reactive Protein 2.48 H (0.0-0.3) mg/dL Albumin 3.1 L (3.4-5.0) g/dL Vital Signs Temperature 36.3 C L 12/20/18 16:13 Temperature Source Tympanic 12/20/18 16:13 Pulse 66 12/20/18 16:13 Pulse Rhythm Regular 12/20/18 07:37 Respiratory Rate 20 12/20/18 16:13 Respiratory Effort Non-Labored 12/20/18 07:37 Respiratory Depth Normal 12/20/18 07:37 Respiratory Pattern Normal 12/20/18 07:37 Blood Pressure 129/72 12/20/18 16:13 Pulse Oximetry 98 12/20/18 16:13 Oxygen Delivery Method Room Air 12/20/18 16:13 Oxygen Flow Rate 0 12/20/18 16:13 Pain Level 8 12/20/18 16:13 Comment 12/19/18 08:36 Intake & Output 12/19/18 12/20/18 12/20/18 23:59 11:59 23:59 Intake Total 290 / 830 620 / 720 100 / 720 Balance 290 / 830 620 / 720 100 / 720 Intake: IV 240 / 380 140 / 240 100 / 240 Oral 50 / 450 480 / 480 Other: Urine Color Pale Yellow Urine Appearance Clear Clear Urine Odor None Comment Pt voiding ad floresita in toilet. Urine not seen at this time. Pt denies sx. Voiding Methods Toilet Laboratory Results WBC 5.91 k/cumm (4.4-10.8) 12/20/18 09:55 RBC 4.26 m/cumm (4.50-6.00) L 12/20/18 09:55 Hgb 11.2 g/dL (13.5-17.5) L 12/20/18 09:55 Hct 35.0 % (40.0-50.0) L 12/20/18 09:55 MCV 82.2 fL (80-95) 12/20/18 09:55 MCH 26.3 pg (27.0-33.0) L 12/20/18 09:55 MCHC 32.0 g/dL (32.0-36.0) 12/20/18 09:55 RDW 15.1 % (11.8-14.1) H 12/20/18 09:55 Plt Count 215 x1000/uL (130-400) 12/20/18 09:55 MPV 9.1 fL (8.0-11.0) 12/20/18 09:55 Immature Gran % 0.3 12/20/18 09:55 Neutrophils % 59.6 12/20/18 09:55 Lymphocytes % 30.1 12/20/18 09:55 Monocytes % 4.6 12/20/18 09:55 Eosinophils % 5.1 12/20/18 09:55 Basophils % 0.3 12/20/18 09:55 Absolute Neutrophils 3.52 k/cumm (1.2-6.7) 12/20/18 09:55 Absolute Lymphocytes 1.78 k/cumm (1.2-3.4) 12/20/18 09:55 Absolute Monocytes 0.27 k/cumm (0.11-0.7) 12/20/18 09:55 Absolute Eosinophils 0.30 k/cumm (0.0-0.7) 12/20/18 09:55 Absolute Basophils 0.02 k/cumm (0.0-0.2) 12/20/18 09:55 ESR 60 MM/HR (0-15) H 12/17/18 06:13 Sodium 140 mmol/L (136-145) 12/20/18 09:55 Potassium 3.9 mmol/L (3.5-5.1) 12/20/18 09:55 Chloride 103 mmol/L (98-107) 12/20/18 09:55 Carbon Dioxide 28.1 mmol/L (21.0-32.0) 12/20/18 09:55 Anion Gap 8.9 mmol/L (3-11) 12/20/18 09:55 BUN 16 mg/dL (7-18) 12/20/18 09:55 Creatinine 1.20 mg/dL (0.70-1.30) 12/20/18 09:55 Estimated GFR/1.73 m2 >= 60.00 (mL/min/1.73m2) 12/20/18 09:55 Glucose 160 mg/dL (70-100) H 12/20/18 09:55 Calcium 8.7 mg/dL (8.5-10.1) 12/20/18 09:55 Magnesium 2.1 mg/dL (1.8-2.4) 12/17/18 06:13 Total Bilirubin 0.2 mg/dL (0.2-1.0) 12/20/18 09:55 Conjugated Bilirubin 0.05 mg/dL (0.00-0.20) 12/20/18 09:55 AST 15 U/L (15-37) 12/20/18 09:55 ALT 21 U/L (12-78) 12/20/18 09:55 Alkaline Phosphatase 121 U/L (46-116) H 12/20/18 09:55 C-Reactive Protein 2.48 mg/dL (0.0-0.3) H 12/20/18 09:55 Total Protein 7.1 g/dL (6.4-8.2) 12/20/18 09:55 Albumin 3.1 g/dL (3.4-5.0) L 12/20/18 09:55 Lipase 92 U/L (73-393) 12/20/18 09:55
[2018-12-20] MEDS: Patch Removal 1 EACH TP (19:55)
[2018-12-21] MEDS: oxyCODONE 15 MG TAB 30 MG PO ×6 (04:09→23:24)
[2018-12-21] MEDS: Normal Saline Flush 10 ML SYR IVP ×3 (04:10→23:24)
[2018-12-21] MEDS: DULoxetine 30 MG CAP PO (07:57)
[2018-12-21] MEDS: Docusate Sodium 100 MG CAP PO ×2 (07:58→20:13)
[2018-12-21] MEDS: amLODIPine 5 MG TAB PO (07:58)
[2018-12-21] MEDS: Pantoprazole 40 MG TABCR PO ×2 (07:58→20:13)
[2018-12-21] MEDS: Lactobacillus Acidophilus CAP 1 CAP PO ×3 (07:58→20:13)
[2018-12-21] MEDS: Normal Saline Flush 10 ML SYR 20 ML IVP ×3 (07:59→20:13)
[2018-12-21] MEDS: Lidocaine 5% Patch 2 PATCH TP (08:00)
[2018-12-21 08:46] VITALS: BP 136/97; PULSE 73; RESP 18; TEMP 36.4; O2SAT 97
--- NOTE | 2018-12-21 15:46 | PGE_ITS ---
Date of Service Date of service: 12/21/18 Time of Service: 15:44 Assessment and Plan (1) GERD (gastroesophageal reflux disease): Current visit: No Status: Chronic With RUQ abdominal pain after eating pizza and cape verdean fries. Resolved today. Continue PPI. Avoid fatty foods. Nutrition following. He has been seen by general surgery, Dr. Umana, as an outpatient. HIDA scan with CCK pending (he was unable to have it done prior to this hospitalization). He will follow up as an outpatient as long as his symptoms are controlled. Assess Hgb A1c with next labs. (2) Psoas abscess, left: Current visit: No Status: Acute Continue IV Oxacillin for a planned course of 6 weeks, initiated on 12/13/2018. Will need weekly CBC, CMP, ESR, and CRP, with reimaging in the future. Continue local wound care and pain control. (3) Hypertension: Current visit: Yes Status: Chronic Well controlled. Continue CCB. Also on Clonidine patch. (4) DVT prophylaxis: Current visit: No Status: Acute Lovenox discontinued in the setting of frequent ambulation. This case was discussed with Dr. Connell who is in agreement. Subjective Interval history since last seen: Followed up with Jason today due to RUQ abdominal pain that he experienced after eating pizza and cape verdean fries. He denies any abdominal pain today. He states nutrition has been in to discuss dietary options with him, he is very open to working with nutrition. He has been seen by general surgery as an outpatient for RUQ and epigastric pain on 12/03/18 and the plan was for him to undergo HIDA scan with CCK. He was not able to get the test done before he was admitted to the hospital. He is no longer experiencing pain and is planning to avoid fatty foods. He will continue to work with nutrition on food choices. He continues to ambulate frequently. He reports feeling depressed today, he feels this is situational. He reports that he works hard to help people in his personal life and feels taken advantage of. Exam Narrative Exam Narrative: General: laying in bed on his left side, window shade closed. He is pleasant and cooperative, in NAD. HEENT: normocephalic, atraumatic, pupils equal and round, mucous membranes moist. Neck: supple, no JVD. Respiratory: respirations even and unlabored. GI: abdomen soft, nontender on palpation. Extremities: no clubbing, cyanosis or edema. Objective Objective Clinical Data: Vital Signs Temperature 36.4 C L 12/21/18 08:46 Temperature Source Tympanic 12/21/18 08:46 Pulse 73 12/21/18 08:46 Pulse Rhythm Regular 12/21/18 07:45 Respiratory Rate 18 12/21/18 08:46 Respiratory Effort Non-Labored 12/21/18 07:45 Respiratory Depth Normal 12/21/18 07:45 Respiratory Pattern Normal 12/21/18 07:45 Blood Pressure 136/97 H 12/21/18 08:46 Pulse Oximetry 97 12/21/18 08:46 Oxygen Delivery Method Room Air 12/21/18 08:46 Oxygen Flow Rate 0 12/21/18 08:46 Pain Level 3 12/21/18 13:10 Comment 12/19/18 08:36 Intake & Output 12/20/18 12/21/18 12/21/18 23:59 11:59 23:59 Intake Total 490 / 1110 710 / 760 50 / 760 Balance 490 / 1110 710 / 760 50 / 760 Intake: IV 190 / 330 170 / 220 50 / 220 Oral 300 / 780 540 / 540 Other: Urine Appearance Clear Clear Comment pt gets up AD DARIUS to void Voiding at darius indep in BR. Urine not seen but denies difficulties. Voiding Methods Toilet Toilet Laboratory Results WBC 5.91 k/cumm (4.4-10.8) 12/20/18 09:55 RBC 4.26 m/cumm (4.50-6.00) L 12/20/18 09:55 Hgb 11.2 g/dL (13.5-17.5) L 12/20/18 09:55 Hct 35.0 % (40.0-50.0) L 12/20/18 09:55 MCV 82.2 fL (80-95) 12/20/18 09:55 MCH 26.3 pg (27.0-33.0) L 12/20/18 09:55 MCHC 32.0 g/dL (32.0-36.0) 12/20/18 09:55 RDW 15.1 % (11.8-14.1) H 12/20/18 09:55 Plt Count 215 x1000/uL (130-400) 12/20/18 09:55 MPV 9.1 fL (8.0-11.0) 12/20/18 09:55 Immature Gran % 0.3 12/20/18 09:55 Neutrophils % 59.6 12/20/18 09:55 Lymphocytes % 30.1 12/20/18 09:55 Monocytes % 4.6 12/20/18 09:55 Eosinophils % 5.1 12/20/18 09:55 Basophils % 0.3 12/20/18 09:55 Absolute Neutrophils 3.52 k/cumm (1.2-6.7) 12/20/18 09:55 Absolute Lymphocytes 1.78 k/cumm (1.2-3.4) 12/20/18 09:55 Absolute Monocytes 0.27 k/cumm (0.11-0.7) 12/20/18 09:55 Absolute Eosinophils 0.30 k/cumm (0.0-0.7) 12/20/18 09:55 Absolute Basophils 0.02 k/cumm (0.0-0.2) 12/20/18 09:55 ESR 60 MM/HR (0-15) H 12/17/18 06:13 Sodium 140 mmol/L (136-145) 12/20/18 09:55 Potassium 3.9 mmol/L (3.5-5.1) 12/20/18 09:55 Chloride 103 mmol/L (98-107) 12/20/18 09:55 Carbon Dioxide 28.1 mmol/L (21.0-32.0) 12/20/18 09:55 Anion Gap 8.9 mmol/L (3-11) 12/20/18 09:55 BUN 16 mg/dL (7-18) 12/20/18 09:55 Creatinine 1.20 mg/dL (0.70-1.30) 12/20/18 09:55 Estimated GFR/1.73 m2 >= 60.00 (mL/min/1.73m2) 12/20/18 09:55 Glucose 160 mg/dL (70-100) H 12/20/18 09:55 Calcium 8.7 mg/dL (8.5-10.1) 12/20/18 09:55 Magnesium 2.1 mg/dL (1.8-2.4) 12/17/18 06:13 Total Bilirubin 0.2 mg/dL (0.2-1.0) 12/20/18 09:55 Conjugated Bilirubin 0.05 mg/dL (0.00-0.20) 12/20/18 09:55 AST 15 U/L (15-37) 12/20/18 09:55 ALT 21 U/L (12-78) 12/20/18 09:55 Alkaline Phosphatase 121 U/L (46-116) H 12/20/18 09:55 C-Reactive Protein 2.48 mg/dL (0.0-0.3) H 12/20/18 09:55 Total Protein 7.1 g/dL (6.4-8.2) 12/20/18 09:55 Albumin 3.1 g/dL (3.4-5.0) L 12/20/18 09:55 Lipase 92 U/L (73-393) 12/20/18 09:55
--- NOTE | 2018-12-21 15:50 | W.NUTCONSULT ---
Date of service: 12/21/18 Time of Service: 15:50 Nutritional Consult ASSESSMENT: Mr. Cuevas is on a regular nutrition therapy. He eats his meals in the cafeteria as he is on swing bed. Per his report, he gets generally healthy foods including fruits, vegetables, and lean meats, but may on occasion get muffins, sausage etc. He has been complaining of RUQ pain occasionally after eating. It looks like he may have had some work up of his gallbladder recently. He is 73 and his weight is down to 137.2 kg. In September of 2018, his weight was 148.5 kg. He has lost 7.6% of his body weight with intentional regard to his caloric intake as well as increased ability to be physically active. His BMI is now 39 kg/m2 consistent with class 2 obesity. He does have some increased post prandial blood sugars up to the 160s. He has not had an A1c checked here at [facility] that I can see. NUTRITIONAL DIAGNOSIS: Altered gastrointestinal status related to intermittent RUQ pain after eating. INTERVENTION: Discussed with Jason the rationale behind trying a low fat nutrition therapy. I outlined the meals in the cafeteria that would be appropriate at breakfast, lunch and dinner. Jason verbalized an excellent understanding of the information and verbalized a high motivation to comply with the recommendations. Would also recommend checking Jason's HgB a1C at some point during this admission, given his obesity, his increased physiologic stress, his central obesity, and his inability to very physically active for quite a while now as well as the fact that he is close to 44 years old. MONITORING AND EVALUATION: 1. Will monitor Jason's cafeteria choices and provide him with suggestions. Will follow his progress. 2. Will evaluate nutrition care plan ongoing and adjust as needed. Thank you for the consult. Time Spent in Nutritional Counseling and Treatment: NURYS
[2018-12-21] MEDS: Acetaminophen 325 MG TAB PO (16:02)
[2018-12-21 17:01] VITALS: RESP 16
[2018-12-21 17:02] VITALS: RESP 16
[2018-12-21] MEDS: Patch Removal 1 EACH TP (20:13)
[2018-12-22] MEDS: Normal Saline Flush 10 ML SYR IVP ×4 (04:22→16:51)
[2018-12-22] MEDS: oxyCODONE 15 MG TAB 30 MG PO ×6 (04:22→23:20)
[2018-12-22 07:32] VITALS: BP 155/84; PULSE 69; RESP 18; TEMP 36.7; O2SAT 97
[2018-12-22] MEDS: DULoxetine 30 MG CAP PO (08:48)
[2018-12-22] MEDS: Lactobacillus Acidophilus CAP 1 CAP PO ×3 (08:49→20:05)
[2018-12-22] MEDS: amLODIPine 5 MG TAB PO (08:49)
[2018-12-22] MEDS: Pantoprazole 40 MG TABCR PO ×2 (08:49→20:05)
[2018-12-22] MEDS: Docusate Sodium 100 MG CAP PO ×2 (08:50→20:05)
[2018-12-22] MEDS: Lidocaine 5% Patch 2 PATCH TP (08:50)
[2018-12-22] MEDS: Mylanta Suspension 30 ML CUP PO (18:40)
[2018-12-22] MEDS: Normal Saline Flush 10 ML SYR 20 ML IVP (20:05)
[2018-12-22] MEDS: Patch Removal 1 EACH TP (20:06)
[2018-12-22] MEDS: Acetaminophen 325 MG TAB PO (20:11)
[2018-12-23] MEDS: oxyCODONE 15 MG TAB 30 MG PO ×6 (03:45→23:29)
[2018-12-23 07:30] VITALS: BP 157/109; PULSE 71; RESP 18; TEMP 36.7; O2SAT 95
[2018-12-23] MEDS: Pantoprazole 40 MG TABCR PO ×2 (07:59→20:05)
--- NOTE | 2018-12-23 08:47 | PSYCO_ITS ---
Date of service: 12/23/18 Time of Service: 08:30 History of Present Illness Narrative: Reason for consultation: Puja Frazier NP requested psychiatric consultation for Mr. Cuevas to evaluate and treat depressive symptoms. Mr. Cuevas has a history of left Psoas muscle infection and was admitted for 6 weeks of IV Oxacillin infusion. He is known to me from his prior admission in July of 2018 in which based on our discussion of his symptoms he started clonidine patch for irritability/lashing out at staff and duloxetine for depression. Both were reportedly very helpful and he was readmitted with these medications still in his regimen. Staff noted his complaints of depression, largely due to situational and interpersonal stressors, and patient stated interest in reconsulting with me. This morning I stopped by his room. he was lying in bed watching TV and stated he did not want to talk with me but would prefer to wait until Thursday (five days from now) when I would next be able to stop by. He did endorse that a lot of his depression is situationally determined but he would consider increasing his duloxetine if he feels stuck in depression even during times when he would expect to feel malgorzata or pleasure. this was hte extent of our conversation that he was willing to engage in this morning. i told him I would communicate the option to increase duloxetine to 40mg to his medical team at any point over the weekend shoudl Mr. Cuevas feel this would be helpful. Recommenations: - continue medical management - continue to assess depressive symptoms and consider worsening mood requiring increased medications based on lack of enjoyment out of usually enjoyable friend interactions and activities lasting for more than a couple days. - if increase of duloxetine is indicated, consider an increase to 40mg daily up from current 30mg. - continue clonidine transdermal for irritability/anger. I will check back with Jason Cuevas after the holiday weekend. [facility] Medical History Affective personality disorder (Chronic) Anxiety (Chronic) Bipolar 2 disorder (Chronic) Depression (Chronic) GERD (gastroesophageal reflux disease) (Chronic) HTN (hypertension) (Chronic) Hepatitis C (Chronic) History of alcohol abuse (Chronic) History of intravenous drug abuse (Chronic) Hyperlipidemia (Chronic) Kidney stones (Chronic) PTSD (post-traumatic stress disorder) (Chronic) TBI (traumatic brain injury) (Chronic) Surgical History Appendectomy Colonoscopy - MAC (11/14/16) EGD - MAC (11/14/16) Rotator Cuff Repair Spinal Fusion Vasectomy Social History Smoking/Tobacco Use Status: Current every day Tobacco Type: cigarettes Smoking cigarettes per day: 5 Alcohol Intake: never Drug use: Never Substance use type: does not use and former substance user Details: Hx drug abuse Do you feel safe at home: Yes Do you feel safe in your relationship?: Yes Results Last Vital Signs Temp 36.7 C 12/23/18 07:30 Pulse 71 12/23/18 07:30 Resp 18 12/23/18 07:30 BP 157/109 H 12/23/18 07:30 Pulse Ox 95 12/23/18 07:30 Labs : 12/20/18 09:55 12/20/18 09:55
[2018-12-23 09:04] VITALS: BP 139/84; PULSE 65
[2018-12-23] MEDS: Lactobacillus Acidophilus CAP 1 CAP PO ×3 (09:14→20:05)
[2018-12-23] MEDS: amLODIPine 5 MG TAB PO (09:14)
[2018-12-23] MEDS: Docusate Sodium 100 MG CAP PO ×2 (09:14→20:05)
[2018-12-23] MEDS: DULoxetine 30 MG CAP PO (09:15)
[2018-12-23] MEDS: Normal Saline Flush 10 ML SYR 20 ML IVP ×2 (09:15→20:05)
[2018-12-23] MEDS: Normal Saline Flush 10 ML SYR IVP ×2 (12:55→16:16)
--- NOTE | 2018-12-23 16:26 | PDOC.CMACT ---
- If Service Date Differs Date of service: 12/23/18 Time of Service: 16:26 Care Management Activity Note Jason is visiting daily with his friend Abhi, he walks outside frequently and does number puzzles often. He has music in his room as well as games. He has a phone and television and is offered activity cart daily. CM met with Jason in his room and reviewed antibiotics at home through [facility]. Jason has been approved for home infusions with a antibiotic pump. He would need to be discharged home with his PICC line which would be maintained by home health. Jason requested some time to think about it and then returned to the CM office and states he has decided to go ahead and be discharged home with the antibiotic pump and support through home health. CM faxed all the orders to [facility] and they would be able to send the antibiotics and equipment to the hospital prior to being discharged home. CM contacted [facility] and notified via fax of pending discharge. P: Jason will plan to be discharged home with home health services and [facility] for ongoing antibiotics as and outpatient.CM to coordinate services with [facility] Jason will be transported via [facility] at time of discharge.
--- NOTE | 2018-12-23 17:18 | CMACTNOTE_ITS ---
- If Service Date Differs Date of service: 12/23/18 Time of Service: 16:26 Care Management Activity Note Jason is visiting daily with his friend Abhi, he walks outside frequently and does number puzzles often. He has music in his room as well as games. He has a phone and television and is offered activity cart daily. CM met with Jason in his room and reviewed antibiotics at [facility]. Jason has been approved for home infusions with a antibiotic pump. He would need to be dischar [facility] home with his PICC line which would be maintained by home health. Jason requested some time to think about it and then returned to the CM office and states he has decided to go ahead and be discharged home with the antibiotic pump and support through home health. CM faxed all the orders to [facility] and they would be able to send the antibiotics and equipment to the hospital prior to being discharged home. CM contacted [facility] and notified via fax of pending discharge. P: Jason will plan to be discharged home with home health services and [facility] for ongoing antibiotics as and outpatient.CM to coordinate services with [facility] Jason will be transported via [facility] at time of discharge.
[2018-12-23] MEDS: Lidocaine 5% Patch 2 PATCH TP (20:06)
[2018-12-24] MEDS: oxyCODONE 15 MG TAB 30 MG PO ×4 (04:11→16:26)
[2018-12-24 07:01] LABS: C-Reactive Protein 2.04 mg/dL (0.0-0.3)
[2018-12-24 07:16] LABS: Hemoglobin A1C 5.5 % (4.5-6.2)
[2018-12-24] MEDS: Normal Saline Flush 10 ML SYR 20 ML IVP (08:06)
[2018-12-24] MEDS: Lactobacillus Acidophilus CAP 1 CAP PO ×2 (08:07→14:02)
[2018-12-24] MEDS: Pantoprazole 40 MG TABCR PO (08:08)
[2018-12-24] MEDS: DULoxetine 30 MG CAP PO (08:08)
[2018-12-24] MEDS: Docusate Sodium 100 MG CAP PO (08:08)
[2018-12-24] MEDS: amLODIPine 5 MG TAB PO (08:08)
[2018-12-24] MEDS: Patch Removal 2 EACH TP (08:09)
[2018-12-24 08:21] VITALS: BP 157/105; PULSE 79; RESP 18; TEMP 36.1; O2SAT 97
[2018-12-24 10:02] VITALS: BP 157/96; PULSE 71
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
--- NOTE | 2018-12-24 15:33 | PDOC.CMDIS ---
- If Service Date Differs Date of service: 12/24/18 Time of Service: 15:33 LACE Index Scoring Tool - Questions: Length of Stay (in days): 7 - 13 Acuity (Admit via E.D.?): No E.D. Visits: 7 - Answers: Total Score: 9 Risk of Readmission: Low Risk Care Management Discharge Reason for Hospitalization: SB1 for IV antibioitcs. Discharge Plan: Jason was admitted as SB1 for IV antibiotics. CM was able to assist patient in obtaining IV antibiotics at home through [place] and Home health support for nursing and PICC line care. Jason has decided to go to his brothers home and feels that is a safe plan. CM has contacted home health services and spoke with intake, to review referral and plan. [facility] will deliver the first shippment of supplies to [facility] and deliveries after that will be sent to his brothers home. Jason will follow up with his primary care on 12/30/18. CM faxed all documentation to [facility] infectious disease for follow up appointment. Jason met with provider and reviewed plan for discharge including medication management. Jason has transportation and time of discharge and understands the plan. He will follow up with mental health provider after discharge. Patient/Family Education Needs: Discharge instructions, limitations and follow up plan of care. Ask me three and self management. Services Needed at Discharge: DME Agency, Home Health Care Services, Infusion Therapy, Transportation
--- NOTE | 2018-12-24 15:57 | CMDISCH_ITS ---
- If Service Date Differs Date of service: 12/24/18 Time of Service: 15:33 LACE Index Scoring Tool - Questions: Length of Stay (in days): 7 - 13 Acuity (Admit via E.D.?): No E.D. Visits: 7 - Answers: Total Score: 9 Risk of Readmission: Low Risk Care Management Discharge Reason for Hospitalization: SB1 for IV antibioitcs. Discharge Plan: Jason was admitted as SB1 for IV antibiotics. CM was able to assist patient in obtaining IV antibiotics at home through [facility] and Home health support for nursing and PICC line care. Jason has decided to go to his brothers home and feels that is a safe plan. CM has contacted home health services and spoke with intake, to review referral and plan. [facility] will deliver the first shippment of supplies to [facility] and deliveries after that will be sent to his brothers home. Jason will follow up with his primary care on 12/30/18. CM faxed all documentation to [facility] infectious disease for follow up appointment. Jason met with provider and reviewed plan for discharge including medication management. Jason has transportation and time of discharge and understands the plan. He will follow up with mental health provider after discharge. Patient/Family Education Needs: Discharge instructions, limitations and follow up plan of care. Ask me three and self management. Services Needed at Discharge: DME Agency, Home Health Care Services, Infusion Therapy, Transportation
--- NOTE | 2018-12-24 16:40 | PDOC.HHF2F ---
1. Encounter Date and Reason I certify that TRISTIAN NORWOOD was seen by Puja Frazier on 12/24/18 and that I had a [id number] encounter with this patient that meets the physician face to face encounter requirements. 2. Clinical Findings Supporting Skilled Need and Homebound Status I certify that home health services are medically necessary, include either intermittent fdc and/or physical/speech therapy, and that this patient is homebound in that absences from the home require considerable and taxing effort and are infrequent or of short duration, or are attributable to the need to receive medical care. [X] (a) Attached documentation from encounter provides clinical findings supporting skilled need and homebound status (including what assistance patient requires to leave the home). The encounter with the patient was in whole, or in part, for the following medical condition, which is the primary reason for home health care: PSOAS ABSCESS Senior Living: Needed to assist with home IV antibiotics and wound care (per wound orders at [facility]). Please draw CBC with differential, CMP, ESR, CRP on 12/29/18, results to PCP. FIXED INCOME ANALYST: needed to ensure he is connected with community resources, assist with navigating medical system. Physical Therapy: Speech Therapy: Homebound: Unable to leave home independently. 3. Certification and Authentication I certify that I composed the above information based on my clinical judgement relating to this patient's medical condition and, if applicable, clinical findings communicated to me by the NPP or inpatient physician who performed the Home Health Referral. All further orders will be obtained through ___Ashely Mueller (Community Based Physician - PCP)
== END 2018-12-24 16:40 | disposition home health service (06) | DRG 373 ==
PROVIDERS: Family Medicine; Internal Medicine; Nurse Practitioner; Admitting Provider Internal Medicine; PCP Nurse Practitioner Family; Visit Provider Internal Medicine
DX: K68.12 Psoas muscle abscess (principal); Z79.2 Long term (current) use of antibiotics; R10.11 Right upper quadrant pain; F31.9 Bipolar disorder, unspecified; F41.8 Other specified anxiety disorders; K21.9 Gastro-esophageal reflux disease without esophagitis; I10 Essential (primary) hypertension; E78.5 Hyperlipidemia, unspecified; Z45.2 Encounter for adjustment and management of vascular access device
CPT/HCPCS: 80048; 80076; 83690; 85652; 99232; 99239; 99252; 99306; 99316; J1650; NC; 76700; 83036; 83735; 85025; 85049; 86140; 99308; J2700; J3490

== ENCOUNTER 2018-12-27 10:32 | Inpatient (IN) | payer MEDICARE, MEDICAID, SELFPAY ==
[2018-12-27 10:41] VITALS: BP 166/116; PULSE 87; RESP 16; TEMP 36.8; O2SAT 98
--- NOTE | 2018-12-27 10:53 | DI.CT_ITS ---
SYMPTOM/DIAGNOSIS: RLQ ABD PAIN, VOMITING, CHRONIC LT KNEE ABSCESS ABDOMEN AND PELVIC CT: Comparison examinations are from 11/07/18-12/09/18. No acute findings are seen in the lung bases. The liver is normal in size. No suspicious hepatic mass is seen. The portal, superior mesenteric and splenic veins are patent. The gallbladder is negative. No biliary ductal dilatation is present. No acute abnormalities are seen of the pancreas, spleen or adrenal glands. The right kidney and collecting system are unremarkable. The left kidney shows symmetric enhancement. There is mild prominence of the proximal left ureter. No obstructing stone is seen. The urinary bladder is intact. The reproductive organs are unremarkable. There is diverticulosis of the colon but no definite pericolonic inflammatory changes or bowel wall thickening is noted. There are mildly dilated loops of small bowel proximally. The mid and distal small bowel is of normal caliber. This may represent a focal ileus. Early obstruction cannot be excluded. The remainder of the bowel is unremarkable. The aorta is of normal caliber. No significant abdominal or pelvic adenopathy, ascites or pneumoperitoneum is seen. There is again seen a left ileopsoas fluid collection which is unchanged in size and consistent with the patient's known abscess. IMPRESSION: 1. Stable size of the abscess in the left psoas. 2. Mildly dilated loops of proximal small bowel. This may represent an ileus or early obstruction. Follow up as clinically appropriate. 3. Mild prominence of the left proximal renal collecting system. This is adjacent to the inflamed left psoas abscess. Partial obstruction cannot be excluded. Continued follow up is recommended.
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
[2018-12-27] MEDS: Normal Saline 1,000 ML 1000 ML IV (11:11)
[2018-12-27] MEDS: Ondansetron 4 MG/2 ML VIAL IVP (11:12)
[2018-12-27] MEDS: MORPHine 10 MG/ML VIAL 4 MG IVP (11:13)
[2018-12-27 11:21] LABS: Abs Immature Grans 0.02 k/cumm (0.0-0.09); Absolute Basophil Count 0.02 k/cumm (0.0-0.2); Absolute Eosinophil Count 0.02 k/cumm (0.0-0.7); Absolute Lymphocyte Count 1.19 k/cumm (1.2-3.4); Absolute Monocyte Count 0.36 k/cumm (0.11-0.7); Absolute Neutrophil Count 8.45 k/cumm (1.2-6.7); Basophils % 0.2; Eosinophils % 0.2; HGB 12.8 g/dL (13.5-17.5); Immature Grans % 0.2; Lymphocytes % 11.8; Mean Corpuscular Hemoglobin 25.6 pg (27.0-33.0); Mean Platelet Volume 9.1 fL (8.0-11.0); Monocytes % 3.6; Platelet Count 277 x1000/uL (130-400); RBC Distribution Width 15.5 % (11.8-14.1); White Blood Cell Count 10.06 k/cumm (4.4-10.8)
[2018-12-27 11:35] LABS: ALT 24 U/L (12-78); AST 17 U/L (15-37); Albumin 3.6 g/dL (3.4-5.0); Alkaline Phosphatase 123 U/L (46-116); Anion Gap 11.8 mmol/L (3-11); BUN 11 mg/dL (7-18); Bilirubin, Total 0.3 mg/dL (0.2-1.0); CO2 26.2 mmol/L (21.0-32.0); CREATININE 0.91 mg/dL (0.70-1.30); Calcium 9.2 mg/dL (8.5-10.1); Chloride 101 mmol/L (98-107); Glucose 126 mg/dL (70-100); Lipase 78 U/L (73-393); Potassium 3.6 mmol/L (3.5-5.1); Sodium 139 mmol/L (136-145); Total Protein 8.6 g/dL (6.4-8.2)
[2018-12-27 12:09] LABS: Bilirubin Negative (Negative); Blood Negative (Negative); Clarity Clear; Glucose Negative (Negative); Ketones Negative (Negative); Leukocyte Esterase Negative (Negative); Nitrite Negative (Negative); Specific Gravity 1.015 (1.005-1.025); Urobilinogen 0.2 EU/dL (Up TO 0.2)
[2018-12-27 12:25] LABS: Epithelial Cells Rare HPF (Negative); RBC 0-2 (0-2); WBC 0-2 HPF (0-5)
[2018-12-27 12:26] LABS: Bacteria Negative HPF (Negative); C & S Indicated? No; Casts Negative LPF (Negative); Crystals Negative HPF (Negative); Mucus Trace (Negative)
[2018-12-27] MEDS: Omnipaque 350 MG/ML 100 ML BTL IJ (12:48)
[2018-12-27] MEDS: Normal Saline Flush 10 ML SYR IVP ×2 (12:51→17:35)
[2018-12-27] MEDS: HYDROcodone 5/Acetaminophen 325 TAB PO (13:03)
[2018-12-27 13:14] VITALS: BP 149/105; PULSE 74; RESP 16; TEMP 36.6; O2SAT 99
--- NOTE | 2018-12-27 13:56 | DI.VRAD_ITS ---
EXAM: CT Abdomen and Pelvis With Contrast EXAM DATE/TIME: 12/27/2018 10:55 AM CLINICAL HISTORY: 43 years old, male; Signs and symptoms; Other: Rlq abd pain, vomiting, chronic left i. P abcess TECHNIQUE: Imaging protocol: Axial computed tomography images of the abdomen and pelvis with intravenous contrast. Coronal and sagittal reformatted images were created and reviewed. Radiation optimization: All CT scans at this facility use at least one of these dose optimization techniques: automated exposure control; mA and/or kV adjustment per patient size (includes targeted exams where dose is matched to clinical indication); or iterative reconstruction. Contrast material: OMNIPAQUE 350; Contrast volume: 100 ml; Contrast route: IV; COMPARISON: CT ABDOMEN PELVIS W 12/09/2018 1:19 PM FINDINGS: Tubes, catheters and devices: Metallic density in the right atrium may represent a catheter. ABDOMEN: Liver: Normal. No mass. Gallbladder and bile ducts: Normal. No calcified stones. No ductal dilation. Pancreas: Normal. No ductal dilation. Spleen: Normal. No splenomegaly. Adrenals: Normal. No mass. Kidneys and ureters: There is mild dilatation of the left collecting system compared to the prior study. There may be partial obstruction of the left ureter as it passes adjacent to the inflamed left psoas. Stomach and bowel: A few loops of dilated small bowel with air-fluid levels. More distally the small bowel tapers. This may represent ileus or early obstruction. Diverticulosis of the rectosigmoid. Mild bowel wall thickening and minimal pericolonic inflammatory changes. This may represent mild colitis or diverticulitis in the appropriate clinical setting. Appendix: Surgical clip in the right lower quadrant was present on the prior study the and may indicate appendectomy. PELVIS: Bladder: Unremarkable as visualized. Reproductive: Unremarkable as visualized. ABDOMEN and PELVIS: Intraperitoneal space: Normal. No free air. No significant fluid collection. Bones/joints: Internal fixation device from L3-L5 Soft tissues: Unremarkable. Vasculature: Normal. No abdominal aortic aneurysm. Lymph nodes: Normal. No enlarged lymph nodes. Other findings: Again demonstrated is 2.1 cm fluid collection in the left psoas. There is increasing edema in the left psoas surrounding fluid collection. IMPRESSION: 1. Again demonstrated is 2.1 cm fluid collection in the left psoas. There is increasing edema in the left psoas surrounding fluid collection. Findings consistent with a history of abscess 2. A few loops of dilated small bowel with air-fluid levels. More distally the small bowel tapers. This may represent ileus or early obstruction. 3. There is mild dilatation of the left collecting system compared to the prior study. There may be partial obstruction of the left ureter as it passes adjacent to the inflamed left psoas. 4. Diverticulosis of the rectosigmoid. Mild bowel wall thickening and minimal pericolonic inflammatory changes. This may represent mild colitis or diverticulitis in the appropriate clinical setting. THIS REPORT CONTAINS FINDINGS THAT MAY BE CRITICAL TO PATIENT CARE. The findings were verbally communicated via telephone conference with MEGHAN RIGGS at 1:56 PM EDT on 12/27/2018. The findings were acknowledged and understood. Dictated and Authenticated by: Corey Calloway MD. Ordering:KATELIN Verdugo MD
[2018-12-27 14:00] LABS: C-Reactive Protein 4.44 mg/dL (0.0-0.3)
[2018-12-27 14:01] VITALS: BP 181/140; PULSE 93; RESP 20; TEMP 36.4; O2SAT 96
[2018-12-27 14:02] VITALS: BP 149/105; PULSE 74; RESP 16; TEMP 36.6; O2SAT 99
[2018-12-27 14:21] LABS: ESR 81 MM/HR (0-15)
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
--- NOTE | 2018-12-27 14:34 | NUR.NOTE ---
Nursing Note: 1415: while doing pt's admission, pt reports to RN that he did something really dumb. RN questions pt to what he had done; pt states that on Thursday he had taken an empty flush syringe and had filled it with toilet water and had injected it into his PICC line. pt states he had disconnected the continuous antibiotic therapy line and flushed the PICC tubing with the toilet water and then had reconnected the IV tubing. RN questions pt as to why he injected toilet water; pt states he was just upset and discouraged with his life situation and states that he no longer feels like harming himself. RN reports to pt that she must inform the MD; pt upset that RN has to report. pt does report that there was no toilet bowl street light lamp cleaner or fecal/urine excretions in toilet at the time he nicko up the toilet water. RN reports to IRENE, Khushboo Rivera to report to MD.
[2018-12-27] MEDS: Ibuprofen 800 MG TAB PO (14:54)
[2018-12-27] MEDS: Lactobacillus Acidophilus CAP 1 CAP PO ×2 (14:54→19:25)
[2018-12-27] MEDS: amLODIPine 5 MG TAB PO (14:54)
[2018-12-27] MEDS: DULoxetine 30 MG CAP PO (14:55)
[2018-12-27] MEDS: oxyCODONE 15 MG TAB 30 MG PO ×3 (14:55→23:16)
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
--- NOTE | 2018-12-27 15:39 | CM.SBPSYCH ---
- If Service Date Differs Date of service: 12/27/18 Time of Service: 15:39 SB Psychosocial/Act.Assessment - Hospital Admission Admission Date: 12/27/18 Admission From:: ED - Swing Bed Admission Swing Bed Admit Date:: 12/27/18 Swing Bed Level of Care: Level 1/SNF - Social Supports PREVIOUS FUNCTIONAL STATUS/SOCIAL/FAMILY SUPPORTS:: Jason resides in [facility] with his roommate. He has a brother whom is local whom is supportive to him at times. Jason is unable to fully engage during discussion today due to medications. - Prior to Admission Living Arrangements/Environment Prior to Admission:: Jason did have his own apartment. Last discharge he was staying with his brother. He felt that he would be well supported there. He comes to the ED today and reports his belongings including his medicaitons came up missing and he was unable to return to his brothers. Jason states that he was going to return home to his apartment and was told he was no longer able to stay there by the landlord. - Work History Employment Status:: Jason is disabled - [place]: No [place] Spouse: No - Benefits Financial: Social Security - Anabaptism Active Amish Member:: No Will Amish Members or [employer] Visit:: No - Advance Directives for Healthcare If no AD, do you want more information:: No - Community Community Supports/Involvement: Jason has a friend Abhi in the community whom he spends time with. He has a brother as well however their relationship is strained at times. - Interests Hobbies:: video games and [employer] puzzels - Present Functional Status Physical Abilities:: ambulates independently with a cane Cognitive:: Alert and oriented Communication:: Jason at times have difficulty communicating. Jason appreciates privacy and would like healthcare information shared with him without others in the room. Sensory Systems: Jason does wear glasses at all times Behavior:: Jason makes good eye contact at times he is tearful or hangs his head when speaking to CM. - Medical History PAST MEDICAL HISTORY/PAST SURGICAL HISTORY:: Affective personality disorder (Chronic). Anxiety (Chronic). Bipolar 2 disorder (Chronic). Depression (Chronic). GERD (gastroesophageal reflux disease) (Chronic). HTN (hypertension) (Chronic). Hepatitis C (Chronic). History of alcohol abuse (Chronic). History of intravenous drug abuse (Chronic). Hyperlipidemia (Chronic). Kidney stones (Chronic). PTSD (post-traumatic stress disorder) (Chronic). TBI (traumatic brain injury) (Chronic). Appendectomy. Colonoscopy - MAC (11/14/16). EGD - MAC (11/14/16). Rotator Cuff Repair. Spinal Fusion. Vasectomy General Health:: Fair Past Psychiatric Treatment:: Affective personality disorder (Chronic). Anxiety (Chronic). Bipolar 2 disorder (Chronic). Depression (Chronic). - Admission Data Reason for Swing Bed Admission:: IV antibiotics (Oxicillin) Q4H x 4weeks Discharge Plan:: Jason will return to the community once course of IV antibiotics is complete. Assessment: Jason was discharged home on 12/24 with q 4 hours antibiotics via pump through [facility]. He lost his housing and all of his medications while in the community. He is tearful and requesting he complete the four weeks remaining here at [facility]. (see CM note) Diathermy Equipment Repairer: Kaia Ramos Date Assessment was completed:: 12/27/18
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
[2018-12-27 16:17] VITALS: BP 129/76; PULSE 72; RESP 18; TEMP 36.5; O2SAT 98
--- NOTE | 2018-12-27 16:26 | CMSA_ITS ---
- If Service Date Differs Date of service: 12/27/18 Time of Service: 15:39 SB Psychosocial/Act.Assessment - Hospital Admission Admission Date: 12/27/18 Admission From:: ED - Swing Bed Admission Swing Bed Admit Date:: 12/27/18 Swing Bed Level of Care: Level 1/SNF - Social Supports PREVIOUS FUNCTIONAL STATUS/SOCIAL/FAMILY SUPPORTS:: Jason resides in [facility] with his roommate. He has a brother whom is local whom is supportive to him at times. Jason is unable to fully engage during discussion today due to medications. - Prior to Admission Living Arrangements/Environment Prior to Admission:: Jason did have his own apartment. Last discharge he was staying with his brother. He felt that he would be well supported there. He comes to the ED today and reports his belongings including his medicaitons came up missing and he was unable to return to his brothers. Jason states that he was going to return home to his apartment and was told he was no longer able to stay there by the landlord. - Work History Employment Status:: Jason is disabled - Ubly: No Ubly's Spouse: No - Benefits Financial: Social Security - Pentecostalism Active Shinto Member:: No Will Shinto Members or Maintenance Aide Visit:: No - Advance Directives for Healthcare If no AD, do you want more information:: No - Community Community Supports/Involvement: Jason has a friend Abhi in the community whom he spends time with. He has a brother as well however their relationship is strained at times. - Interests Hobbies:: video games and [employer] puzzels - Present Functional Status Physical Abilities:: ambulates independently with a cane Cognitive:: Alert and oriented Communication:: Jason at times have difficulty communicating. Jason appreciates privacy and would like healthcare information shared with him without others in the room. Sensory Systems: Jason does wear glasses at all times Behavior:: Jason makes good eye contact at times he is tearful or hangs his head when speaking to CM. - Medical History PAST MEDICAL HISTORY/PAST SURGICAL HISTORY:: Affective personality disorder (Chronic). Anxiety (Chronic). Bipolar 2 disorder (Chronic). Depression (Chronic). GERD (gastroesophageal reflux disease) (Chronic). HTN (hypertension) (Chronic). Hepatitis C (Chronic). History of alcohol abuse (Chronic). History of intravenous drug abuse (Chronic). Hyperlipidemia (Chronic). Kidney stones (Chronic). PTSD (post-traumatic stress disorder) (Chronic). TBI (traumatic brain injury) (Chronic). Appendectomy. Colonoscopy - MAC (11/14/16). EGD - MAC (11/14/16). Rotator Cuff Repair. Spinal Fusion. Vasectomy General Health:: Fair Past Psychiatric Treatment:: Affective personality disorder (Chronic). Anxiety (Chronic). Bipolar 2 disorder (Chronic). Depression (Chronic). - Admission Data Reason for Swing Bed Admission:: IV antibiotics (Oxicillin) Q4H x 4weeks Discharge Plan:: Jason will return to the community once course of IV antibiotics is complete. Assessment: Jason was discharged home on 12/24 with q 4 hours a ntibiotics via pump through [facility]. He lost his housing and all of his medications while in the community. He is tearful and requesting he complete the four weeks remaining here at [facility]. (see CM note) Buffer Chrome: Kaia Ramos Date Assessment was completed:: 12/27/18
--- NOTE | 2018-12-27 16:27 | CM.SWINGPC ---
- If Service Date Differs Date of service: 12/27/18 Time of Service: 16:27 Swingbed Plan of Care Plan of care: SWING BED PROGRAM ACTIVITIES/DISCHARGE PLAN OF CARE ACTIVITIES PLAN Date:12/27/18 Identified Need:Individual activities Jason enjoys puzzle books. Intervention/Plan:Activity cart, Sudoku puzzles, cards, television, music therapy, pet therapy, reiki when available and [facility] services. Initials [facility] DISCHARGE PLAN Date:12/27/18 Identified Need: IV antibiotics treat Psoas abscess, left: Intervention/Plan: IV antibiotics q 4 hours anticipate end date is 01/14/19 Initials
--- NOTE | 2018-12-27 18:56 | NUR.NOTE ---
Nursing Note: Pt received on bed, asleep but easily arousable. Appears sad and lonely. Answered questions politely, verbalized of abdominal pain rated 5 but did not require pain med at that time. Ate well at supper, was motivated by friend Abhi. Picc line flushed and with good blood returned. Complained of 8/10 abdominal pain, medicated with oxycodone 30 mg. and with good relief. His friend will be at bedside overnight.
[2018-12-27] MEDS: Docusate Sodium 100 MG CAP PO (19:25)
[2018-12-27] MEDS: Pantoprazole 40 MG TABCR PO (19:25)
--- NOTE | 2018-12-27 21:17 | NUR.NOTE ---
Nursing Note: Pt was approached by storekeeper steward if wants to to complete new heppa form and he stated not now might be tomorrow. Remains on bed but independent to go to bathroom.
[2018-12-28] MEDS: Normal Saline Flush 10 ML SYR IVP ×4 (01:20→14:29)
[2018-12-28] MEDS: oxyCODONE 15 MG TAB 30 MG PO ×5 (03:26→20:51)
[2018-12-28 06:31] VITALS: BP 128/70; PULSE 80; RESP 20; TEMP 36.8; O2SAT 98
[2018-12-28 07:05] VITALS: BP 137/83; PULSE 67; RESP 18; TEMP 36.5; O2SAT 99
[2018-12-28] MEDS: Pantoprazole 40 MG TABCR PO ×2 (08:33→19:23)
[2018-12-28] MEDS: Lactobacillus Acidophilus CAP 1 CAP PO ×3 (08:33→19:22)
[2018-12-28] MEDS: DULoxetine 30 MG CAP PO (08:34)
[2018-12-28] MEDS: amLODIPine 5 MG TAB PO (08:34)
[2018-12-28] MEDS: Lidocaine 5% Patch 2 PATCH TP (09:52)
--- NOTE | 2018-12-28 11:49 | NUR.NOTE ---
Safety reviewed , report indicated that patient has had some self reported injection of toilet water into his PICC line .Before this admission . Reviewed with patient that this would cause infection and assessed and current thought s of self harm, which he denies, his affect is flat , he does not comment on RN's comments about the injection as a form of self harm. He contracts with nursing to keep PICC line free from infection or manipulation .
--- NOTE | 2018-12-28 15:19 | NUR.NOTE ---
Patient and utilization review nurse staying free from infection , concerning IV PICC line ,reviewed signs and symptoms of infection, and importance of never using line for self injecting of any kind .
--- NOTE | 2018-12-28 17:35 | NUR.NOTE ---
Patient came to desk to sign out to go to cafeteria. He asked me if I knew what he had done. Upon further inquiry Jason reported while at home he put toilet water in an empty syringe and injecting it into his PICC line hoping it would make him sick enough that he would . He did this to himself at night then went to bed, hoping he would not wake up. Jason states how disappointed he was that he did not that night. Jason also states he was too scared to try anything else to harm himself and came to the hospital. Dr. Lacho MEJIA notified and he will place a order for Dr. Gilbert consult.
[2018-12-28] MEDS: fentaNYL 50 MCG PATCH TD (18:19)
[2018-12-28] MEDS: Docusate Sodium 100 MG CAP PO (19:23)
[2018-12-28] MEDS: Lidocaine Patch Removal 2 EACH TD (19:24)
[2018-12-28 20:29] VITALS: BP 135/81; PULSE 66; RESP 16; TEMP 36.6
[2018-12-28] MEDS: Acetaminophen 325 MG TAB PO (20:51)
[2018-12-29] MEDS: oxyCODONE 15 MG TAB 30 MG PO ×6 (01:17→23:59)
[2018-12-29] MEDS: Ibuprofen 800 MG TAB PO ×2 (01:17→10:56)
[2018-12-29] MEDS: Normal Saline Flush 10 ML SYR IVP ×5 (05:25→22:00)
[2018-12-29] MEDS: Acetaminophen 325 MG TAB PO ×2 (05:35→14:55)
[2018-12-29 07:15] VITALS: BP 163/102; PULSE 84; RESP 16; TEMP 36.3; O2SAT 99
[2018-12-29] MEDS: Docusate Sodium 100 MG CAP PO ×2 (07:41→19:56)
[2018-12-29] MEDS: Lactobacillus Acidophilus CAP 1 CAP PO ×3 (07:41→19:56)
[2018-12-29] MEDS: amLODIPine 5 MG TAB PO (07:41)
[2018-12-29] MEDS: DULoxetine 30 MG CAP PO (07:41)
[2018-12-29] MEDS: Pantoprazole 40 MG TABCR PO ×2 (07:42→19:56)
[2018-12-29 08:00] VITALS: O2SAT 98
[2018-12-29] MEDS: Lidocaine 5% Patch 2 PATCH TP (08:24)
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
--- NOTE | 2018-12-29 10:31 | PHARADMIT ---
Addendum entered by Dary Rivera 01/01/19 09:42: Pharmacy Note Subjective pt trying to space out oxycodone dose a little more than every 4 hours per nursing report Objective BP-158/98 other VS okay no labs Assessment no med changes so far today Plan plans on a detailed eval of infection at approx 5 week therapy Addendum entered by Dary Rivera 12/31/18 10:41: Pharmacy Note Subjective Oxacillin 2gram IV Q4h for 6 weeks of treatment started 12/13/18, end date 01/24 Objective BP-152/91 other VS okay Assessment fentanyl patch increased today to 75 mcg, plans to wean down the PRN oxycodone, no decrease in dose yet Plan if no improvement potential for a transfer to tertiary center out of the area for surgical options Addendum entered by Susannah Aguirre 12/29/18 10:31: Pharmacy Note Subjective Oxacillin 2gram IV Q4h for 6 weeks of treatment started 12/13/18 Objective bp 163/102, pain 6/10, no labs today Assessment fentanyl patch started, Md hoping to wean down oxycodone as titrating fentanyl patch up to control pain Plan plans on a detailed eval of infection at approx 5 week therapy for possibly asking for transfer to another hospital(ex. [facility]) Original Note: TRISTIAN NORWOOD M Male : 1975 Emr# [id number] 12/17/18 15:37 - Pharmacy Review by Maryann Dutta Acct Num: [id number] : 1975 Patient Age: 43 Addendum entered by Susannah Aguirre 12/23/18 13:07: Pharmacy Note Subjective Oxacillin 2gram IV Q4h for 6 weeks of treatment started 12/13/18. Psych consult today Objective pain 8/10, Assessment nutrition is following, no new meds Plan duloxetine dose may be increased per MD note Addendum entered by Dary Rivera 12/21/18 11:28: Pharmacy Note Subjective US was negative per progress note; MD thinks most likely etiology is heartburn/GERD Objective BP-136/97 afebrile Assessment Oxacillin 2gram IV Q4h for 6 weeks of treatment started 12/13/18 enoxaparin discontinued, calcium carbonate ordered PRN Pt's own Clonidine patch is upstairs in med cassette Plan possible nutrition consult? Addendum entered by Dary Rivera 12/20/18 11:20: Pharmacy Note Subjective pt. not sleeping well, complained of possible gallbladder pain following eating pizza per nursing report Objective VS-okay Assessment Oxacillin 2gram IV Q4h for 6 weeks of treatment started 12/13/18 no med changes so far today Pt's own Clonidine patch is upstairs in med cassette Plan US of abdomen ordered Possibility of continuing therapy at home, CM working on it Addendum entered by Elen Balderas 12/19/18 13:16: Pharmacy Note Subjective c/o discomfort around PICC line-looks good per RN More engaged yesterday, cheerful, talkative Objective VS ok, pain 02/09, no labs Assessment Oxacillin 2gram IV Q4h for 6 weeks of treatment started 12/13/18 Pt's own Clonidine patch is upstairs in med cassette, although we do stock it as non-formulary No med changes today Plan Possibility of continuing therapy at home, CM working on it end date: aprox 01/23/19 Addendum entered by Elen Balderas 12/18/18 13:18: Pharmacy Note Subjective SWINGBED LEVEL-1 for Psoas abscess Objective VS ok, pain 01/10, no labs/lytes today Micro hip collected 12/09/18: Staph Aureus Assessment Oxacillin 2gram IV Q4h for 6 weeks of treatment started 12/13/18 Plan end date: aprox 01/23/19 Possibility of continuing therapy at home, CM working on it Possible need for Psych consult-patient has been here numerous times, well known by staff Original Note: Admission Pharmacy Clinical Review Code Status Full Code Current Weight 137.2 kg Renally Cleared and Narrow Therapeutic Index Meds N/A QTc Value / Action Taken N/A BP Control, Fever 140/84; afebrile Electrolytes reviewed all WNL DVT Prophylaxis Enoxaparin 40mg Opiate Usage / Scheduled Bowel Regimen Ordered n/a Plt/SCr for Heparin / Enoxaparin 232/1.16 INR for Warfarin H/H stable, WBC/Bands H/H 11/34.1; WBC 8.86 Antibiotic appropriateness Yes -- ID rec'd Cultures and Sensitivities None pending Surgical ABX d/c within 24 hr n/a DM control / Insulin Dosing BG 102; no hx dm Heart Failure (Check EF%) (PAMELA's, B-Block, Diuretics) amlodipine (not ordered), clonidine 0.1mg patch weekly IV to PO Switch n/a Home Meds Reviewed yes Home Meds Not Ordered ALL ORDERED Comments Patient moved to swingbed as he receives 6 weeks of IV oxacillin Initialized on 12/17/18 15:37 - END OF NOTE
[2018-12-29 11:43] VITALS: BP 158/101; PULSE 71
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
[2018-12-29 15:00] VITALS: BP 153/104; PULSE 79; RESP 20; TEMP 36.3; O2SAT 95
[2018-12-29 19:40] VITALS: BP 118/72; PULSE 76; RESP 16; TEMP 36.7; O2SAT 94
[2018-12-29] MEDS: Lidocaine Patch Removal 2 EACH TD (19:56)
[2018-12-30] MEDS: oxyCODONE 15 MG TAB 30 MG PO ×5 (04:08→20:24)
[2018-12-30] MEDS: Normal Saline Flush 10 ML SYR IVP ×6 (06:06→21:25)
[2018-12-30 07:30] VITALS: BP 139/86; PULSE 67; RESP 18; TEMP 36.5; O2SAT 97
[2018-12-30 07:34] LABS: Platelet Count 232 x1000/uL (130-400)
[2018-12-30 07:55] VITALS: O2SAT 97
[2018-12-30] MEDS: DULoxetine 20 MG CAP 40 MG PO (08:24)
[2018-12-30] MEDS: amLODIPine 5 MG TAB PO (08:24)
[2018-12-30] MEDS: Ibuprofen 800 MG TAB PO (08:24)
[2018-12-30] MEDS: Pantoprazole 40 MG TABCR PO ×2 (08:25→19:21)
[2018-12-30] MEDS: Lactobacillus Acidophilus CAP 1 CAP PO ×3 (08:25→19:21)
[2018-12-30] MEDS: Docusate Sodium 100 MG CAP PO ×2 (08:25→19:21)
--- NOTE | 2018-12-30 09:23 | PDOC.CMACT ---
- If Service Date Differs Date of service: 12/30/18 Time of Service: 09:23 Care Management Activity Note Jason ambulates frequently and goes outside often. He enjoys puzzle books watching television. He has visits with friends daily. Jason has been offered the activity cart as well as television and phone in his room. He participates with music and reiki therapy when available. P: Jason will be discharged upon completion of his antibiotic pending his infection has improved. Plan will be to re-image the area and continue to monitor his labs. If Jason has not shown improvement will consider transfer to tertiary center out of the area for surgical options.
[2018-12-30] MEDS: Lidocaine 5% Patch 2 PATCH TP (10:21)
--- NOTE | 2018-12-30 10:39 | NUR.NOTE ---
Nursing Note: 0734: pt reporting to RN increased pressure in his spinal column today in comparison to other days. pt had rung to see if he had pain medication available at this time. pt not due for 30mg oxy until 803 per emar. pt agreeable to wait. pt states he had a rough night with little to no sleep. pt reports he does not see relief with the fentanyl patch that was ordered and placed several days ago; per pt, had stated to him that it would take a few days to have an effect. continue to monitor.
[2018-12-30] MEDS: Lidocaine Patch Removal 2 EACH TD (19:22)
[2018-12-30] MEDS: Acetaminophen 325 MG TAB PO (20:24)
[2018-12-30 23:25] VITALS: BP 149/78; PULSE 67; RESP 18; TEMP 36.2; O2SAT 98
[2018-12-31 00:20] VITALS: BP 166/102; PULSE 74; RESP 16; TEMP 36.3; O2SAT 98
[2018-12-31] MEDS: Acetaminophen 325 MG TAB PO ×3 (00:32→21:10)
[2018-12-31] MEDS: oxyCODONE 15 MG TAB 30 MG PO ×6 (00:32→21:11)
[2018-12-31] MEDS: Normal Saline Flush 10 ML SYR IVP ×4 (02:17→18:14)
[2018-12-31 07:05] VITALS: BP 152/91; PULSE 71; RESP 18; TEMP 36.7; O2SAT 98
[2018-12-31] MEDS: Lactobacillus Acidophilus CAP 1 CAP PO ×3 (07:25→21:10)
[2018-12-31] MEDS: Pantoprazole 40 MG TABCR PO ×2 (07:25→21:11)
[2018-12-31] MEDS: Lidocaine 5% Patch 2 PATCH TP (07:25)
[2018-12-31] MEDS: DULoxetine 20 MG CAP 40 MG PO (07:25)
[2018-12-31] MEDS: Docusate Sodium 100 MG CAP PO ×2 (07:25→21:10)
[2018-12-31] MEDS: amLODIPine 5 MG TAB PO (07:25)
[2018-12-31] MEDS: cloNIDine 0.1 MG PATCH TD (08:32)
[2018-12-31 09:07] VITALS: O2SAT 98
[2018-12-31 15:34] VITALS: BP 150/110; PULSE 81; RESP 19; TEMP 36.4; O2SAT 96
[2018-12-31] MEDS: fentaNYL 75 MCG PATCH TD (18:13)
[2018-12-31] MEDS: Lidocaine Patch Removal 2 EACH TD (21:11)
[2018-12-31 21:24] VITALS: BP 167/99; PULSE 77; RESP 20; TEMP 36.8; O2SAT 97
[2019-01-01] MEDS: oxyCODONE 15 MG TAB 30 MG PO ×6 (02:04→23:24)
[2019-01-01] MEDS: Ibuprofen 800 MG TAB PO ×3 (02:04→17:41)
[2019-01-01] MEDS: Acetaminophen 325 MG TAB PO ×2 (06:01→14:29)
[2019-01-01 07:58] VITALS: BP 158/98; PULSE 88; RESP 19; TEMP 36.5; O2SAT 97
[2019-01-01] MEDS: amLODIPine 5 MG TAB PO (08:13)
[2019-01-01] MEDS: Lactobacillus Acidophilus CAP 1 CAP PO ×3 (08:14→23:34)
[2019-01-01] MEDS: Pantoprazole 40 MG TABCR PO ×2 (08:14→23:34)
[2019-01-01] MEDS: DULoxetine 20 MG CAP 40 MG PO (08:14)
[2019-01-01] MEDS: Docusate Sodium 100 MG CAP PO ×2 (08:15→23:34)
[2019-01-01 10:51] LABS: Abs Immature Grans 0.02 k/cumm (0.0-0.09); Absolute Basophil Count 0.02 k/cumm (0.0-0.2); Absolute Eosinophil Count 0.22 k/cumm (0.0-0.7); Absolute Monocyte Count 0.32 k/cumm (0.11-0.7); Absolute Neutrophil Count 4.73 k/cumm (1.2-6.7); Basophils % 0.3; HCT 35.1 % (40.0-50.0); HGB 11.5 g/dL (13.5-17.5); Immature Grans % 0.3; Lymphocytes % 27.4; Mean Corp. HGB Concentration 32.8 g/dL (32.0-36.0); Mean Corpuscular Hemoglobin 26.3 pg (27.0-33.0); Mean Corpuscular Volume 80.3 fL (80-95); Mean Platelet Volume 8.8 fL (8.0-11.0); Monocytes % 4.4; Neutrophils % 64.6; Platelet Count 236 x1000/uL (130-400); RBC 4.37 m/cumm (4.50-6.00); White Blood Cell Count 7.31 k/cumm (4.4-10.8)
[2019-01-01 11:03] LABS: Anion Gap 9.8 mmol/L (3-11); BUN 17 mg/dL (7-18); C-Reactive Protein 2.46 mg/dL (0.0-0.3); CO2 29.2 mmol/L (21.0-32.0); CREATININE 1.26 mg/dL (0.70-1.30); Calcium 8.8 mg/dL (8.5-10.1); Chloride 100 mmol/L (98-107); Glucose 144 mg/dL (70-100); Potassium 3.6 mmol/L (3.5-5.1); Sodium 139 mmol/L (136-145)
[2019-01-01] MEDS: Omnipaque 350 MG/ML 50 ML BTL PO (11:12)
[2019-01-01] MEDS: Breeza Beverage 473 ML BTL PO ×2 (11:13→11:14)
--- NOTE | 2019-01-01 11:13 | W.PM.PROGNOT ---
Date of Service Date of service: 01/01/19 Time of Service: 11:14 Subjective Interval history since last seen: Having back pain to right side and mid back with CVA tenderness. Endorses having hematuria, given new symptoms, U/A ordered, CT of abdomen and pelvis with contrast pending. Previous CT with concern for renal obstruction and ileus also having pain to RUQ and mid epigastric region, no nausea, vomiting or diarrhea, b.s. hyperactive, Large BM yesterday. CRP 2.46 which is down from last result. No leukocytosis or fever however on antibiotics. Objective Objective Clinical Data: Abnormal lab results 01/01/19 01/01/19 Range/Units 10:32 10:32 RBC 4.37 L (4.50-6.00) m/cumm Hgb 11.5 L (13.5-17.5) g/dL Hct 35.1 L (40.0-50.0) % MCH 26.3 L (27.0-33.0) pg RDW 15.0 H (11.8-14.1) % Glucose 144 H (70-100) mg/dL C-Reactive Protein 2.46 H (0.0-0.3) mg/dL Vital Signs Temperature 36.5 C 01/01/19 07:58 Temperature Source Tympanic 01/01/19 07:58 Pulse 88 01/01/19 07:58 Pulse Rhythm Regular 12/31/18 21:24 Respiratory Rate 19 01/01/19 07:58 Respiratory Effort Non-Labored 12/31/18 21:24 Respiratory Depth Normal 12/31/18 21:24 Respiratory Pattern Normal 12/31/18 21:24 Blood Pressure 158/98 H 01/01/19 07:58 Pulse Oximetry 97 01/01/19 07:58 Oxygen Delivery Method Room Air 01/01/19 07:58 Oxygen Flow Rate 0 01/01/19 07:58 Pain Level 7 12/31/18 16:55 Comment 01/01/19 07:58 Intake & Output 12/31/18 12/31/18 01/01/19 11:59 23:59 11:59 Intake Total 520 / 1640 1120 / 1640 550 / 550 Balance 520 / 1640 1120 / 1640 550 / 550 Intake: IV 160 / 320 160 / 320 100 / 100 Oral 360 / 1320 960 / 1320 450 / 450 Other: Urine Color Yellow Urine Appearance Clear Urine Odor None Comment Pt voiding ad floresita in toilet. Urine not seen by nursing. Pt denies sx. Stool Characteristics Soft Voiding Methods Toilet Toilet Laboratory Results WBC 7.31 k/cumm (4.4-10.8) 01/01/19 10:32 RBC 4.37 m/cumm (4.50-6.00) L 01/01/19 10:32 Hgb 11.5 g/dL (13.5-17.5) L 01/01/19 10:32 Hct 35.1 % (40.0-50.0) L 01/01/19 10:32 MCV 80.3 fL (80-95) 01/01/19 10:32 MCH 26.3 pg (27.0-33.0) L 01/01/19 10:32 MCHC 32.8 g/dL (32.0-36.0) 01/01/19 10:32 RDW 15.0 % (11.8-14.1) H 01/01/19 10:32 Plt Count 236 x1000/uL (130-400) 01/01/19 10:32 MPV 8.8 fL (8.0-11.0) 01/01/19 10:32 Immature Gran % 0.3 01/01/19 10:32 Neutrophils % 64.6 01/01/19 10:32 Lymphocytes % 27.4 01/01/19 10:32 Monocytes % 4.4 01/01/19 10:32 Eosinophils % 3.0 01/01/19 10:32 Basophils % 0.3 01/01/19 10:32 Absolute Neutrophils 4.73 k/cumm (1.2-6.7) 01/01/19 10:32 Absolute Lymphocytes 2.00 k/cumm (1.2-3.4) 01/01/19 10:32 Absolute Monocytes 0.32 k/cumm (0.11-0.7) 01/01/19 10:32 Absolute Eosinophils 0.22 k/cumm (0.0-0.7) 01/01/19 10:32 Absolute Basophils 0.02 k/cumm (0.0-0.2) 01/01/19 10:32 ESR 81 MM/HR (0-15) H 12/27/18 11:00 Sodium 139 mmol/L (136-145) 01/01/19 10:32 Potassium 3.6 mmol/L (3.5-5.1) 01/01/19 10:32 Chloride 100 mmol/L (98-107) 01/01/19 10:32 Carbon Dioxide 29.2 mmol/L (21.0-32.0) 01/01/19 10:32 Anion Gap 9.8 mmol/L (3-11) 01/01/19 10:32 BUN 17 mg/dL (7-18) 01/01/19 10:32 Creatinine 1.26 mg/dL (0.70-1.30) 01/01/19 10:32 Estimated GFR/1.73 m2 >= 60.00 (mL/min/1.73m2) 01/01/19 10:32 Glucose 144 mg/dL (70-100) H 01/01/19 10:32 Calcium 8.8 mg/dL (8.5-10.1) 01/01/19 10:32 Magnesium 2.0 mg/dL (1.8-2.4) 01/01/19 10:32 Total Bilirubin 0.3 mg/dL (0.2-1.0) 12/27/18 11:10 AST 17 U/L (15-37) 12/27/18 11:10 ALT 24 U/L (12-78) 12/27/18 11:10 Alkaline Phosphatase 123 U/L (46-116) H 12/27/18 11:10 C-Reactive Protein 2.46 mg/dL (0.0-0.3) H 01/01/19 10:32 Total Protein 8.6 g/dL (6.4-8.2) H 12/27/18 11:10 Albumin 3.6 g/dL (3.4-5.0) 12/27/18 11:10 Lipase 78 U/L (73-393) 12/27/18 11:10 Urine Color Yellow (Yellow) 12/27/18 11:50 Urine Clarity Clear 12/27/18 11:50 Urine pH 7.0 (5-8) 12/27/18 11:50 Ur Specific [place] 1.015 (1.005-1.025) 12/27/18 11:50 Urine Protein Trace mg/dL (Negative) H 12/27/18 11:50 Urine Ketones Negative mg/dL (Negative) 12/27/18 11:50 Urine Blood Negative (Negative) 12/27/18 11:50 Urine Nitrite Negative (Negative) 12/27/18 11:50 Urine Bilirubin Negative (Negative) 12/27/18 11:50 Urine Urobilinogen 0.2 EU/dL (Up TO 0.2) 12/27/18 11:50 Ur Leukocyte Esterase Negative (Negative) 12/27/18 11:50 Urine RBC 0-2 (0-2) 12/27/18 11:50 Urine WBC 0-2 HPF (0-5) 12/27/18 11:50 Ur Epithelial Cells Rare HPF (Negative) 12/27/18 11:50 Urine Crystals Negative HPF (Negative) 12/27/18 11:50 Urine Bacteria Negative HPF (Negative) 12/27/18 11:50 Urine Casts Negative LPF (Negative) 12/27/18 11:50 Urine Mucus Trace (Negative) 12/27/18 11:50 Ur Culture Indicated? No 12/27/18 11:50 Urine Glucose Negative mg/dL (Negative) 12/27/18 11:50
--- NOTE | 2019-01-01 11:30 | NUR.NOTE ---
Nursing Note: Patient signed out and left the floor. Prior to leaving, patient told community health representative that his PICC line was wrapped with kerlix. It was found when he returned that PICC was not wrapped. DAYANA fraire.
[2019-01-01] MEDS: Omnipaque 350 MG/ML 100 ML BTL IJ (12:17)
[2019-01-01] MEDS: LORazepam 2 MG/ML VIAL 1 MG IVP (12:24)
[2019-01-01] MEDS: Normal Saline Flush 10 ML SYR IVP ×5 (12:24→21:46)
--- NOTE | 2019-01-01 12:30 | DI.CT_ITS ---
SYMPTOM/DIAGNOSIS: ABD PAIN, HEMATURIA ABDOMEN AND PELVIC CT: CT examination of the abdomen and pelvis was performed with a bolus infusion of 100 cc's of Omnipaque 350. The examination is compared with recent CT of 12/27/18 which showed left iliopsoas abscess, stable from a previous CT. The findings are again stable on today's examination. I would not that the inferior most extent of the iliopsoas abnormality is not included on the most inferior images obtained. No free intraperitoneal fluid or gas. No intraperitoneal abscess. Question minimal left ureteral and calyceal dilatation, this could reflect very low grade obstruction secondary to inflammatory changes from the aforementioned inflammatory process. Liver, spleen and pancreas remain unremarkable No biliary dilatation. No significant abdominal or pelvic adenopathy. No bony involvement. Previously noted surgical hardware again seen in the lumbar spine. IMPRESSION: Stable appearance of presumed left iliopsoas healing abscess. Inferior margin of this process not included on the scan. Additional scanning of the upper thigh could be obtained if clinically indicated. Question slight left pelvocalyceal and ureteral dilatation to the level of the aforementioned abscess could reflect very low grade obstruction. No gross hydronephrosis.
[2019-01-01 13:01] LABS: Bilirubin Negative (Negative); Blood Large (Negative); Clarity Clear; Glucose Negative (Negative); Ketones Negative (Negative); Leukocyte Esterase Negative (Negative); Nitrite Negative (Negative); Specific Gravity 1.015 (1.005-1.025); Urobilinogen 0.2 EU/dL (Up TO 0.2)
[2019-01-01 13:18] LABS: Bacteria Negative HPF (Negative); Casts 0-2 Fine Granular LPF (Negative); Crystals Negative HPF (Negative); Epithelial Cells Rare HPF (Negative); Mucus Negative (Negative); RBC >50 (0-2); WBC 0-2 HPF (0-5)
[2019-01-01 13:19] LABS: C & S Indicated? C&S Done As Ordered
--- NOTE | 2019-01-01 13:34 | DI.VRAD_ITS ---
EXAM: CT Abdomen and Pelvis With Contrast EXAM DATE/TIME: 01/01/2019 12:36 PM CLINICAL HISTORY: 43 years old, male; Signs and symptoms; Other: Abdominal pain; Hematuria, left psoas abscess TECHNIQUE: Imaging protocol: Axial computed tomography images of the abdomen and pelvis with intravenous contrast. Coronal and sagittal reformatted images were created and reviewed. Radiation optimization: All CT scans at this facility use at least one of these dose optimization techniques: automated exposure control; mA and/or kV adjustment per patient size (includes targeted exams where dose is matched to clinical indication); or iterative reconstruction. Contrast material: OMNIPAQUE 350; Contrast volume: 100 ml; Contrast route: IV; COMPARISON: CT ABDOMEN PELVIS EXAMS 12/27/2018, 12/09/2018 and 11/30/2018. FINDINGS: ABDOMEN: Liver: Unremarkable. No mass. Gallbladder and bile ducts: Unremarkable.No calcified stones. No ductal dilation. Pancreas: Unremarkable. No ductal dilation. Spleen: Unremarkable. No splenomegaly. Adrenals: Unremarkable. No mass. Kidneys and ureters: Stable mild dilation of the left renal collecting system and proximal ureter to the level where it passes by the marlon-psoas inflammation/fibrosis. No nephrolithiasis or visible stone in either ureter. Stomach and bowel: Moderate stool volume in the colon and distending the rectum. Distal colonic diverticulosis. No evidence of bowel wall thickening, inflammation, obstruction or perforation. Appendix: Appendectomy. Retroperitoneal space: Redemonstrated stable left retroperitoneal marlon-psoas soft tissue thickening and fat stranding which could represent inflammation or fibrosis. Redemonstrated distended left iliopsoas bursa which cephalad to terminate in the left iliac fossa. All findings appear stable since the 11/30/2018 exam. PELVIS: Bladder: Unremarkable as visualized. Reproductive: Unremarkable as visualized. ABDOMEN and PELVIS: Intraperitoneal space: Unremarkable. No free air. No fluid collection. Bones/joints: No acute fracture. No dislocation. Soft tissues: Redemonstrated postsurgical changes in the left inguinal region. Vasculature: Unremarkable. No abdominal aortic aneurysm. Lymph nodes: Stable left iliac chain lymphadenopathy. IMPRESSION: 1. Stable left retroperitoneal inflammation or fibrosis with stable associated partial obstruction on the left ureter. 2. Suspected left iliopsoas bursitis; stable. Dictated and Authenticated by: Natalia Mcfarland MD. Ordering:GIUSEPPE Lopez MD
[2019-01-01] MEDS: Lidocaine 5% Patch 2 PATCH TP (14:15)
[2019-01-01 23:00] VITALS: BP 165/100; PULSE 70; RESP 18; TEMP 36.4; O2SAT 97
[2019-01-02] MEDS: Normal Saline Flush 10 ML SYR IVP ×6 (02:05→21:25)
[2019-01-02] MEDS: Lidocaine Patch Removal 2 EACH TD (02:11)
[2019-01-02] MEDS: oxyCODONE 15 MG TAB 30 MG PO ×5 (04:30→22:02)
[2019-01-02 07:28] LABS: Platelet Count 238 x1000/uL (130-400)
[2019-01-02 09:10] VITALS: BP 164/92; PULSE 80; RESP 18; TEMP 36.9; O2SAT 96
[2019-01-02] MEDS: Acetaminophen 325 MG TAB PO (09:25)
[2019-01-02] MEDS: DULoxetine 20 MG CAP 40 MG PO (09:25)
[2019-01-02] MEDS: Docusate Sodium 100 MG CAP PO ×2 (09:26→19:55)
[2019-01-02] MEDS: Lactobacillus Acidophilus CAP 1 CAP PO ×3 (09:27→19:55)
[2019-01-02] MEDS: Pantoprazole 40 MG TABCR PO ×2 (09:27→19:55)
[2019-01-02] MEDS: amLODIPine 5 MG TAB PO (09:28)
--- NOTE | 2019-01-02 09:30 | NUR.NOTE ---
Nursing Note: Patient returned to floor and it was noted that the kerlix wrap had been pulled down to expose the PICC line.
[2019-01-02 10:46] LABS: *AMPHETAMINES SCREEN URINE Negative (Negative); *BARBITURATES SCREEN URINE Negative (Negative); *BENZODIAZEPINES SCREEN URINE Negative (Negative); Cannabinoids THC Negative (Negative); Cocaine Screen,Urine Negative (Negative); METHADONE URINE SCREEN POSITIVE (Negative); OPIATES URINE SCREEN POSITIVE (Negative)
[2019-01-02 10:48] LABS: Tricyclic Antidepressants Negative (Negative)
--- NOTE | 2019-01-02 11:29 | W.UROLOGYCON ---
Date of service: 01/02/19 Time of Service: 11:29 History of Present Illness Chief Complaint: Gross hematuria Narrative: This is a 43 year old man who has a complicated history of a left retroperitoneal/psoas/paraspinal abcess. He has had percutaneous and open drainage procedures. He is now on antibiotic therapy. I have been asked to see him after he developed gross hematuria. He has chronic left sided pain but he thinks the pain may be slightly more insense in the past few days. He does not describe dysuria. He has not seen clots in the urine. He had a normal urinalysis as recently as last week. He has been evaluated with a CT of the abdomen and pelvis with contrast. In addition to the changes in the region of the left psoas, the left proximal ureter is now dilated. Contrast is not followed down the ureter on this syudy. I have been asked to see him to help rule out a fistula between his abcess cavity and the left ureter. [facility] Medical History Affective personality disorder (Chronic) Anxiety (Chronic) Bipolar 2 disorder (Chronic) Depression (Chronic) GERD (gastroesophageal reflux disease) (Chronic) HTN (hypertension) (Chronic) Hepatitis C (Chronic) History of alcohol abuse (Chronic) History of intravenous drug abuse (Chronic) Hyperlipidemia (Chronic) Kidney stones (Chronic) PTSD (post-traumatic stress disorder) (Chronic) TBI (traumatic brain injury) (Chronic) Surgical History Appendectomy Colonoscopy - MAC (11/14/16) EGD - MAC (11/14/16) Rotator Cuff Repair Spinal Fusion Vasectomy Social History Smoking/Tobacco Use Status: Current every day Tobacco Type: cigarettes Alcohol Intake: never Drug use: Never Substance use type: does not use and former substance user Details: Hx drug abuse Do you feel safe at home: Yes Do you feel safe in your relationship?: Yes Exam Narrative Exam Narrative: He is seen at the bedside. He does not appear septic or toxic His abdomen shows no peritoneal signs He is awake and alert Results Last Vital Signs Temp 36.4 C L 01/01/19 23:00 Pulse 70 01/01/19 23:00 Resp 18 01/01/19 23:00 BP 165/100 H 01/01/19 23:00 Pulse Ox 97 01/01/19 23:00 Labs : 01/03/19 06:38 01/03/19 06:38 Laboratory Results - last 24 hr 01/01/19 01/02/19 01/02/19 12:52 07:03 10:25 Plt Count 238 Urine Color Yellow Urine Clarity Clear Urine pH 7.0 Ur Specific [place] 1.015 Urine Protein Trace H Urine Ketones Negative Urine Blood Large H Urine Nitrite Negative Urine Bilirubin Negative Urine Urobilinogen 0.2 Ur Leukocyte Esterase Negative Urine RBC >50 H Urine WBC 0-2 Ur Epithelial Cells Rare Urine Crystals Negative Urine Bacteria Negative Urine Casts 0-2 fine granular Urine Mucus Negative Ur Culture Indicated? C&s done as ordered Urine Glucose Negative Urine Opiates Screen Positive Urine Methadone Screen Positive Ur Barbiturates Screen Negative Ur Tricyclics Screen Negative Ur Amphetamines Screen Negative U Benzodiazepines Scrn Negative Urine Cocaine Screen Negative Ur THC Screen Negative Assessment and Plan (1) Psoas abscess, left: Current visit: No Status: Acute (2) Gross hematuria: Current visit: No Status: Acute With the new onset of gross hematuria and the CT findings, we need to be concerned about the possibility of a fistula between the psoas abcess and the left ureter. His studies do not show contrast coming down the ureter, so I would suggest a cystoscopy with retrograde pyelogram to check for extravasation of contrast. If extravasation is seen I can attempt to place a ureteral stent, but if retrograde drainage can not be accomplished, he would likely need a percutaneous nephrostomy tube. The patient seems interested in having the cystoscopy with retrograde pyelogram sooner than later. I have made him NPO after midnight but have not scheduled the procedure. I will talk to him again in the early AM and make a final decision at that time.
--- NOTE | 2019-01-02 11:35 | UCONE_ITS ---
Date of service: 01/02/19 Time of Service: 11:29 History of Present Illness Chief Complaint: Gross hematuria Narrative: This is a 43 year old man who has a complicated history of a left retroperitoneal/psoas/paraspinal abcess. He has had percutaneous and open dave inage procedures. He is now on antibiotic therapy. I have been asked to see him after he developed gross hematuria. He has chronic left sided pain but he thinks the pain may be slightly more insense in the past few days. He does not describe dysuria. He has not seen clots in the urine. He had a normal urinalysis as recently as last week. He has been evaluated with a CT of the abdomen and pelvis with contrast. In addition to the changes in the region of the left psoas, the left proximal u reter is now dilated. Contrast is not followed down the ureter on this syudy. I have been asked to see him to help rule out a fistula between his abcess cavity and the left ureter. [facility] Medical History Affective personality disorder (Chronic) Anxiety (Chronic) Bipolar 2 disorder (Chronic) Depression (Chronic) GERD (gastroesophageal reflux disease) (Chronic) HTN (hypertension) (Chronic) Hepatitis C (Chronic) History of alcohol abuse (Chronic) History of intravenous drug abuse (Chronic) Hyperlipidemia (Chronic) Kidney stones (Chronic) PTSD (post-traumatic stress disorder) (Chronic) TBI (traumatic brain injury) (Chronic) Surgical History Appendectomy Colonoscopy - MAC (11/14/16) EGD - MAC (11/14/16) Rotator Cuff Repair Spinal Fusion Vasectomy Social History Smoking/Tobacco Use Status: Current every day Tobacco Type: cigarettes Alcohol Intake: never Drug use: Never Substance use type: does not use and former substance user Details: Hx drug abuse Do you feel safe at home: Yes Do you feel safe in your relationship?: Yes Exam Narrative Exam Narrative: He is seen at the bedside. He does not appear septic or toxic His abdomen shows no peritoneal signs He is awake and alert Results Last Vital Signs Temp 36.4 C L 01/01/19 23:00 Pulse 70 01/01/19 23:00 Resp 18 01/01/19 23:00 BP 165/100 H 01/01/19 23:00 Pulse Ox 97 01/01/19 23:00 Labs : 01/03/19 06:38 01/03/19 06:38 Laboratory Results - last 24 hr 01/01/19 01/02/19 01/02/19 12:52 07:03 10:25 Plt Count 238 Urine Color Yellow Urine Clarity Clear Urine pH 7.0 Ur Specific [place] 1.015 Urine Protein Trace H Urine Ketones Negative Urine Blood Large H Urine Nitrite Negative Urine Bilirubin Negative Urine Urobilinogen 0.2 Ur Leukocyte Esterase Negative Urine RBC >50 H Urine WBC 0-2 Ur Epithelial Cells Rare Urine Crystals Negative Urine Bacteria Negative Urine Casts 0-2 fine granular Urine Mucus Negative Ur Culture Indicated? C&s done as ordered Urine Glucose Negative Urine Opiates Screen Positive Urine Methadone Screen Positive Ur Barbiturates Screen Negative Ur Tricyclics Screen Negative Ur Amphetamines Screen Negative U Benzodiazepines Scrn Negative Urine Cocaine Screen Negative Ur THC Screen Negative Assessment and Plan (1) Psoas abscess, left: Current visit: No Status: Acute (2) Gross hematuria: Current visit: No Status: Acute With the new onset of gross hematuria and the CT findings, we need to be concerned about the possibility of a fistula between the psoas abcess and the left ureter. His studies do not show contrast coming down the ureter, so I would suggest a cystoscopy with retrograde pyelogram to check for extravasation of contrast. If extravasation is seen I can attempt to place a ureteral stent, but if retrograde drainage can not be accomplished, he would likely need a percutaneous nephrostomy tube. The patient seems interested in having the cystoscopy with retrograde pyelogram sooner than later. I have made him NPO after midnight but have not scheduled the procedure. I will talk to him again in the early AM and make a final decision at that time.
[2019-01-02] MEDS: Ibuprofen 800 MG TAB PO ×2 (14:11→19:56)
--- NOTE | 2019-01-02 14:57 | PGE_ITS ---
Date of Service Date of service: 01/02/19 Time of Service: 14:56 Subjective Interval history since last seen: Jason states he is ok to proceed with cystoscopy tomorrow. Discussed with Dr Yañez - findings on CT and hematuria could be concerning for fistula formation. Zackary girard/dayton'ed and made NPO. Objective Objective Clinical Data: Vital Signs Temperature 36.9 C 01/02/19 09:10 Temperature Source Tympanic 01/02/19 09:10 Pulse 80 01/02/19 09:10 Pulse Rhythm Regular 01/02/19 09:30 Respiratory Rate 18 01/02/19 09:10 Respiratory Effort Non-Labored 01/02/19 09:30 Respiratory Depth Normal 01/02/19 09:30 Respiratory Pattern Normal 01/02/19 09:30 Blood Pressure 164/92 H 01/02/19 09:10 Pulse Oximetry 96 01/02/19 09:10 Oxygen Delivery Method Room Air 01/01/19 23:00 Oxygen Flow Rate 0 01/01/19 23:00 Pain Level 7 01/02/19 14:10 Comment 01/01/19 23:00 Intake & Output 01/01/19 01/02/19 01/02/19 23:59 11:59 23:59 Intake Total 680 / 1280 570 / 570 Balance 680 / 1280 570 / 570 Intake: IV 200 / 350 170 / 170 Oral 480 / 930 400 / 400 Other: Comment VOID X 2 DURING NOC Voiding Methods Toilet Laboratory Results WBC 7.31 k/cumm (4.4-10.8) 01/01/19 10:32 RBC 4.37 m/cumm (4.50-6.00) L 01/01/19 10:32 Hgb 11.5 g/dL (13.5-17.5) L 01/01/19 10:32 Hct 35.1 % (40.0-50.0) L 01/01/19 10:32 MCV 80.3 fL (80-95) 01/01/19 10:32 MCH 26.3 pg (27.0-33.0) L 01/01/19 10:32 MCHC 32.8 g/dL (32.0-36.0) 01/01/19 10:32 RDW 15.0 % (11.8-14.1) H 01/01/19 10:32 Plt Count 238 x1000/uL (130-400) 01/02/19 07:03 MPV 8.8 fL (8.0-11.0) 01/01/19 10:32 Immature Gran % 0.3 01/01/19 10:32 Neutrophils % 64.6 01/01/19 10:32 Lymphocytes % 27.4 01/01/19 10:32 Monocytes % 4.4 01/01/19 10:32 Eosinophils % 3.0 01/01/19 10:32 Basophils % 0.3 01/01/19 10:32 Absolute Neutrophils 4.73 k/cumm (1.2-6.7) 01/01/19 10:32 Absolute Lymphocytes 2.00 k/cumm (1.2-3.4) 01/01/19 10:32 Absolute Monocytes 0.32 k/cumm (0.11-0.7) 01/01/19 10:32 Absolute Eosinophils 0.22 k/cumm (0.0-0.7) 01/01/19 10:32 Absolute Basophils 0.02 k/cumm (0.0-0.2) 01/01/19 10:32 ESR 81 MM/HR (0-15) H 12/27/18 11:00 Sodium 139 mmol/L (136-145) 01/01/19 10:32 Potassium 3.6 mmol/L (3.5-5.1) 01/01/19 10:32 Chloride 100 mmol/L (98-107) 01/01/19 10:32 Carbon Dioxide 29.2 mmol/L (21.0-32.0) 01/01/19 10:32 Anion Gap 9.8 mmol/L (3-11) 01/01/19 10:32 BUN 17 mg/dL (7-18) 01/01/19 10:32 Creatinine 1.26 mg/dL (0.70-1.30) 01/01/19 10:32 Estimated GFR/1.73 m2 >= 60.00 (mL/min/1.73m2) 01/01/19 10:32 Glucose 144 mg/dL (70-100) H 01/01/19 10:32 Calcium 8.8 mg/dL (8.5-10.1) 01/01/19 10:32 Magnesium 2.0 mg/dL (1.8-2.4) 01/01/19 10:32 Total Bilirubin 0.3 mg/dL (0.2-1.0) 12/27/18 11:10 AST 17 U/L (15-37) 12/27/18 11:10 ALT 24 U/L (12-78) 12/27/18 11:10 Alkaline Phosphatase 123 U/L (46-116) H 12/27/18 11:10 C-Reactive Protein 2.46 mg/dL (0.0-0.3) H 01/01/19 10:32 Total Protein 8.6 g/dL (6.4-8.2) H 12/27/18 11:10 Albumin 3.6 g/dL (3.4-5.0) 12/27/18 11:10 Lipase 78 U/L (73-393) 12/27/18 11:10 Urine Color Yellow (Yellow) 01/01/19 12:52 Urine Clarity Clear 01/01/19 12:52 Urine pH 7.0 (5-8) 01/01/19 12:52 Ur Specific [place] 1.015 (1.005-1.025) 01/01/19 12:52 Urine Protein Trace mg/dL (Negative) H 01/01/19 12:52 Urine Ketones Negative mg/dL (Negative) 01/01/19 12:52 Urine Blood Large (Negative) H 01/01/19 12:52 Urine Nitrite Negative (Negative) 01/01/19 12:52 Urine Bilirubin Negative (Negative) 01/01/19 12:52 Urine Urobilinogen 0.2 EU/dL (Up TO 0.2) 01/01/19 12:52 Ur Leukocyte Esterase Negative (Negative) 01/01/19 12:52 Urine RBC >50 (0-2) H 01/01/19 12:52 Urine WBC 0-2 HPF (0-5) 01/01/19 12:52 Ur Epithelial Cells Rare HPF (Negative) 01/01/19 12:52 Urine Crystals Negative HPF (Negative) 01/01/19 12:52 Urine Bacteria Negative HPF (Negative) 01/01/19 12:52 Urine Casts 0-2 fine granular LPF (Negative) 01/01/19 12:52 Urine Mucus Negative (Negative) 01/01/19 12:52 Ur Culture Indicated? C&s done as ordered 01/01/19 12:52 Urine Glucose Negative mg/dL (Negative) 01/01/19 12:52 Urine Opiates Screen Positive (Negative) 01/02/19 10:25 Urine Methadone Screen Positive (Negative) 01/02/19 10:25 Ur Barbiturates Screen Negative (Negative) 01/02/19 10:25 Ur Tricyclics Screen Negative (Negative) 01/02/19 10:25 Ur Amphetamines Screen Negative (Negative) 01/02/19 10:25 U Benzodiazepines Scrn Negative (Negative) 01/02/19 10:25 Urine Cocaine Screen Negative (Negative) 01/02/19 10:25 Ur THC Screen Negative (Negative) 01/02/19 10:25
[2019-01-02 15:52] VITALS: BP 154/109; PULSE 95; RESP 19; TEMP 36.3; O2SAT 96
[2019-01-02] MEDS: Lidocaine 5% Patch 2 PATCH TP (19:57)
[2019-01-03] MEDS: Normal Saline Flush 10 ML SYR IVP ×3 (01:06→08:02)
[2019-01-03 01:10] VITALS: BP 184/102; PULSE 96; RESP 16; TEMP 36.4; O2SAT 97
[2019-01-03] MEDS: Ibuprofen 800 MG TAB PO (02:07)
[2019-01-03] MEDS: oxyCODONE 15 MG TAB 30 MG PO ×3 (02:08→10:20)
[2019-01-03 07:02] LABS: HCT 39.1 % (40.0-50.0); HGB 12.7 g/dL (13.5-17.5); Mean Corp. HGB Concentration 32.5 g/dL (32.0-36.0); Mean Corpuscular Volume 80.1 fL (80-95); Mean Platelet Volume 8.7 fL (8.0-11.0); Platelet Count 267 x1000/uL (130-400); RBC 4.88 m/cumm (4.50-6.00); RBC Distribution Width 15.3 % (11.8-14.1); White Blood Cell Count 6.46 k/cumm (4.4-10.8)
[2019-01-03 07:26] LABS: ALT 21 U/L (12-78); AST 20 U/L (15-37); Albumin 3.5 g/dL (3.4-5.0); Alkaline Phosphatase 130 U/L (46-116); BUN 14 mg/dL (7-18); Bilirubin, Total 0.2 mg/dL (0.2-1.0); C-Reactive Protein 2.08 mg/dL (0.0-0.3); CREATININE 0.95 mg/dL (0.70-1.30); Calcium 9.1 mg/dL (8.5-10.1); Chloride 100 mmol/L (98-107); Glucose 117 mg/dL (70-100); Potassium 3.5 mmol/L (3.5-5.1); Sodium 138 mmol/L (136-145); Total Protein 8.3 g/dL (6.4-8.2)
--- NOTE | 2019-01-03 07:28 | PGE_ITS ---
Date of Service Date of service: 01/03/19 Time of Service: 07:25 Assessment and Plan (1) Gross hematuria: Current visit: No Status: Acute The patient is agreeable to moving ahead with cystoscopy and retrograde pyelogram. I explained that the biggest concern would be involvement of the left ureter in the inflammatory process around the left psoas muscle. Potentially, we could see fistulization into the ureter. If we do identify any extravasation from the ureter on our retrograde pyelogram, we will attempt to place a ureteral stent. If were not able to place a ureteral stent and extravasation is identified, the patient would likely require a percutaneous nephrostomy tube placed by interventional radiology. Subjective Interval history since last seen: He continues to have gross hematuria. He has not seen any clots or particulate matter in the urine. He is not having pneumaturia. Exam Narrative Exam Narrative: He does not appear to be in acute distress. His vital signs are documented elsewhere He is awake and alert. Objective Objective Clinical Data: Abnormal lab results 01/03/19 Range/Units 06:38 Hgb 12.7 L (13.5-17.5) g/dL Hct 39.1 L (40.0-50.0) % MCH 26.0 L (27.0-33.0) pg RDW 15.3 H (11.8-14.1) % Vital Signs Temperature 36.4 C L 01/03/19 01:10 Temperature Source Skin 01/03/19 01:10 Pulse 96 H 01/03/19 01:10 Pulse Rhythm Regular 01/03/19 01:10 Respiratory Rate 16 01/03/19 01:10 Respiratory Effort 01/03/19 01:10 Respiratory Depth Normal 01/03/19 01:10 Respiratory Pattern Normal 01/03/19 01:10 Blood Pressure 184/102 H 01/03/19 01:10 Pulse Oximetry 97 01/03/19 01:10 Oxygen Delivery Method Room Air 01/03/19 01:10 Oxygen Flow Rate 0 01/03/19 01:10 Pain Level 5 01/03/19 07:01 Comment 01/01/19 23:00 Intake & Output 01/02/19 01/02/19 01/03/19 11:59 23:59 11:59 Intake Total 570 / 770 200 / 770 150 / 150 Balance 570 / 770 200 / 770 150 / 150 Intake: IV 170 / 370 200 / 370 100 / 100 Oral 400 / 400 50 / 50 Other: Urine Appearance Hematuria Comment VOID X 2 DURING NOC VOIDED INDEP IN TOILET. TOLD MD IN AM HE IS STILL HAVING HEMATURIA Voiding Methods Toilet Toilet Laboratory Results WBC 6.46 k/cumm (4.4-10.8) 01/03/19 06:38 RBC 4.88 m/cumm (4.50-6.00) 01/03/19 06:38 Hgb 12.7 g/dL (13.5-17.5) L 01/03/19 06:38 Hct 39.1 % (40.0-50.0) L 01/03/19 06:38 MCV 80.1 fL (80-95) 01/03/19 06:38 MCH 26.0 pg (27.0-33.0) L 01/03/19 06:38 MCHC 32.5 g/dL (32.0-36.0) 01/03/19 06:38 RDW 15.3 % (11.8-14.1) H 01/03/19 06:38 Plt Count 267 x1000/uL (130-400) 01/03/19 06:38 MPV 8.7 fL (8.0-11.0) 01/03/19 06:38 Immature Gran % 0.3 01/01/19 10:32 Neutrophils % 64.6 01/01/19 10:32 Lymphocytes % 27.4 01/01/19 10:32 Monocytes % 4.4 01/01/19 10:32 Eosinophils % 3.0 01/01/19 10:32 Basophils % 0.3 01/01/19 10:32 Absolute Neutrophils 4.73 k/cumm (1.2-6.7) 01/01/19 10:32 Absolute Lymphocytes 2.00 k/cumm (1.2-3.4) 01/01/19 10:32 Absolute Monocytes 0.32 k/cumm (0.11-0.7) 01/01/19 10:32 Absolute Eosinophils 0.22 k/cumm (0.0-0.7) 01/01/19 10:32 Absolute Basophils 0.02 k/cumm (0.0-0.2) 01/01/19 10:32 ESR 81 MM/HR (0-15) H 12/27/18 11:00 Sodium 139 mmol/L (136-145) 01/01/19 10:32 Potassium 3.6 mmol/L (3.5-5.1) 01/01/19 10:32 Chloride 100 mmol/L (98-107) 01/01/19 10:32 Carbon Dioxide 29.2 mmol/L (21.0-32.0) 01/01/19 10:32 Anion Gap 9.8 mmol/L (3-11) 01/01/19 10:32 BUN 17 mg/dL (7-18) 01/01/19 10:32 Creatinine 1.26 mg/dL (0.70-1.30) 01/01/19 10:32 Estimated GFR/1.73 m2 >= 60.00 (mL/min/1.73m2) 01/01/19 10:32 Glucose 144 mg/dL (70-100) H 01/01/19 10:32 Calcium 8.8 mg/dL (8.5-10.1) 01/01/19 10:32 Magnesium 2.0 mg/dL (1.8-2.4) 01/01/19 10:32 Total Bilirubin 0.3 mg/dL (0.2-1.0) 12/27/18 11:10 AST 17 U/L (15-37) 12/27/18 11:10 ALT 24 U/L (12-78) 12/27/18 11:10 Alkaline Phosphatase 123 U/L (46-116) H 12/27/18 11:10 C-Reactive Protein 2.46 mg/dL (0.0-0.3) H 01/01/19 10:32 Total Protein 8.6 g/dL (6.4-8.2) H 12/27/18 11:10 Albumin 3.6 g/dL (3.4-5.0) 12/27/18 11:10 Lipase 78 U/L (73-393) 12/27/18 11:10 Urine Color Yellow (Yellow) 01/01/19 12:52 Urine Clarity Clear 01/01/19 12:52 Urine pH 7.0 (5-8) 01/01/19 12:52 Ur Specific [place] 1.015 (1.005-1.025) 01/01/19 12:52 Urine Protein Trace mg/dL (Negative) H 01/01/19 12:52 Urine Ketones Negative mg/dL (Negative) 01/01/19 12:52 Urine Blood Large (Negative) H 01/01/19 12:52 Urine Nitrite Negative (Negative) 01/01/19 12:52 Urine Bilirubin Negative (Negative) 01/01/19 12:52 Urine Urobilinogen 0.2 EU/dL (Up TO 0.2) 01/01/19 12:52 Ur Leukocyte Esterase Negative (Negative) 01/01/19 12:52 Urine RBC >50 (0-2) H 01/01/19 12:52 Urine WBC 0-2 HPF (0-5) 01/01/19 12:52 Ur Epithelial Cells Rare HPF (Negative) 01/01/19 12:52 Urine Crystals Negative HPF (Negative) 01/01/19 12:52 Urine Bacteria Negative HPF (Negative) 01/01/19 12:52 Urine Casts 0-2 fine granular LPF (Negative) 01/01/19 12:52 Urine Mucus Negative (Negative) 01/01/19 12:52 Ur Culture Indicated? C&s done as ordered 01/01/19 12:52 Urine Glucose Negative mg/dL (Negative) 01/01/19 12:52 Urine Opiates Screen Positive (Negative) 01/02/19 10:25 Urine Methadone Screen Positive (Negative) 01/02/19 10:25 Ur Barbiturates Screen Negative (Negative) 01/02/19 10:25 Ur Tricyclics Screen Negative (Negative) 01/02/19 10:25 Ur Amphetamines Screen Negative (Negative) 01/02/19 10:25 U Benzodiazepines Scrn Negative (Negative) 01/02/19 10:25 Urine Cocaine Screen Negative (Negative) 01/02/19 10:25 Ur THC Screen Negative (Negative) 01/02/19 10:25
[2019-01-03 07:45] VITALS: BP 164/84; PULSE 88; RESP 16; TEMP 36.1; O2SAT 96
[2019-01-03 07:47] LABS: ESR 72 MM/HR (0-15)
[2019-01-03] MEDS: amLODIPine 5 MG TAB PO (08:02)
[2019-01-03] MEDS: LORazepam 2 MG/ML VIAL 0.5 MG IVP (08:02)
[2019-01-03] MEDS: Lidocaine Patch Removal 2 EACH TD (08:03)
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
[2019-01-03 08:21] LABS: Prothrombin Time 9.8 sec (9.3-11.0)
[2019-01-03] MEDS: Acetaminophen 325 MG TAB PO (10:18)
--- NOTE | 2019-01-03 12:39 | PDOC.CMPRO ---
- If Service Date Differs Date of service: 01/03/19 Time of Service: 12:39 Care Management Progress Note S/O: Jason is being discharged to acute care at this time r/t gross hematuria. Urology is consulting and he will have OR cystoscope today concerns for fistula r/t abscess. Jason is aware of the changes CM reviewed acute status change and reviewed the swing bed discharge. Jason understand that why he is acute he will need not be able to leave the medical surgical unit outside testing and other inpatient needs. CM did review need for consult with who will meet with Jason. Dr Gilbert is aware of concerns r/t to [place] state of mind when he returned to [facility] this admission. Jason continues on IV antibiotics q 4 hours and will likely need to return to [facility] when no longer acute of transfer to tertiary center r/t abscess and surgical intervention. P: Jason will change to acute today for OR procedure and possible transfer to tertiary center pending urology findings. IV antibiotics continue Q 4 hours. He continues to have a PICC line in place. Jason will not be going outside during his acute stay. Jason declines any nicotine replacement at this time.
--- NOTE | 2019-01-03 12:57 | CMPROGNOTE_ITS ---
- If Service Date Differs Date of service: 01/03/19 Time of Service: 12:39 Care Management Progress Note S/O: Jason is being discharged to acute care at this time r/t gross hematuria. Urology is consulting and he will have OR cystoscope today concerns for fistula r/t abscess. Jason is aware of the changes CM reviewed acute status change and reviewed the swing bed discharge. Jason understand that why he is acute he will need not be able to leave the medical surgical unit outside testing and other inpatient needs. CM did review need for consult with who will meet with Jason. Dr Gilbert is aware of concerns r/t to [place] state of mind when he returned to [facility] this admission. Jason continues on IV antibiotics q 4 hours and will likely need to return to SB[facility] when no longer acute of transfer to tertiary center r/t abscess and surgical intervention. P: Jason will change to acute today for OR procedure and possible transfer to tertiary center pending urology findings. IV antibiotics continue Q 4 hours. He continues to have a PICC line in place. Jason will not be going outside during his acute stay. Jason declines any nicotine replacement at this time.
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
== END 2019-01-03 09:50 | disposition short-term general hospital (02) | DRG 372 ==
LOC: ER 10:47 → MS 14:10
PROVIDERS: Family Medicine; Nurse Practitioner Family; Admitting Provider Internal Medicine; Emergency Provider Student in an Organized Health Care Education/Training Program; PCP Nurse Practitioner Family; Visit Provider Internal Medicine
DX: K68.12 Psoas muscle abscess (principal); F11.93 Opioid use, unspecified with withdrawal; N13.39 Other hydronephrosis; R31.0 Gross hematuria; F41.8 Other specified anxiety disorders; M46.46 Discitis, unspecified, lumbar region; M54.5 Low back pain; G89.29 Other chronic pain; M46.56 Other infective spondylopathies, lumbar region; F11.21 Opioid dependence, in remission; I10 Essential (primary) hypertension; F31.9 Bipolar disorder, unspecified; M25.552 Pain in left hip; Z79.891 Long term (current) use of opiate analgesic; Z87.820 Personal history of traumatic brain injury; Z86.19 Personal history of other infectious and parasitic diseases
CPT/HCPCS: 36415; 80048; 80053; 80307; 83690; 85027; 85652; 87040; 96361; 96374; 96375; 99222; 99232; 99233; 99239; 99252; 99255; 99285; 99305; 99308; 99316; J1650; NC; 74177; 81003; 81015; 83735; 85025; 85049; 85610; 86140; 87086; 87324; 99284; J2060; J2270; J2405; J2700; J3490; Q9967

== ENCOUNTER 2019-01-03 10:17 | Inpatient (IN) | payer MEDICARE, MEDICAID, SELFPAY ==
[2019-01-03] VITALS (9 sets, daily range): BP systolic 130–159; BP diastolic 72–103; PULSE 69–84; RESP 16–22; TEMP 36.1–36.8; O2SAT 92–96
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
[2019-01-03] MEDS: Normal Saline Flush 10 ML SYR IVP ×4 (11:19→22:14)
--- NOTE | 2019-01-03 12:15 | PHARADMIT ---
Addendum entered by Susannah Aguirre 01/03/19 12:15: Pharmacy Note Subjective Urology consulted. pt with possible fistula requiring change in status to active. orders copied from swingbed to active account Objective Assessment oxacillin IV continues( end date 01/24) Plan possible transfer to another facility Original Note: TRISTIAN NORWOOD Male : 1975 Emr# [id number] 12/29/18 10:31 - Pharmacy Review by Susannah Aguirre Acct Num: [id number] : 1975 Patient Age: 43 Addendum entered by Dary Rivera 01/01/19 09:42: Pharmacy Note Subjective pt trying to space out oxycodone dose a little more than every 4 hours per nursing report Objective BP-158/98 other VS okay no labs Assessment no med changes so far today Plan MD plans on a detailed eval of infection at approx 5 week therapy Addendum entered by Dary Rivera 12/31/18 10:41: Pharmacy Note Subjective Oxacillin 2gram IV Q4h for 6 weeks of treatment started 12/13/18, end date 01/24 Objective BP-152/91 other VS okay Assessment fentanyl patch increased today to 75 mcg, MD plans to wean down the PRN oxycodone, no decrease in dose yet Plan if no improvement potential for a transfer to tertiary center out of the area for surgical options Addendum entered by Susannah Aguirre 12/29/18 10:31: Pharmacy Note Subjective Oxacillin 2gram IV Q4h for 6 weeks of treatment started 12/13/18 Objective bp 163/102, pain 6/10, no labs today Assessment fentanyl patch started, Md hoping to wean down oxycodone as titrating fentanyl patch up to control pain Plan MD plans on a detailed eval of infection at approx 5 week therapy for possibly asking for transfer to another hospital(ex. [facility]) Original Note: TRISTIAN NORWOOD Male : 1975 Emr# [id number] 12/17/18 15:37 - Pharmacy Review by Maryann Dutta Acct Num: [id number] : 1975 Patient Age: 43 Addendum entered by Susannah Aguirre 12/23/18 13:07: Pharmacy Note Subjective Oxacillin 2gram IV Q4h for 6 weeks of treatment started 12/13/18. Psych consult today Objective pain 8/10, Assessment nutrition is following, no new meds Plan duloxetine dose may be increased per MD note Addendum entered by Dary Rivera 12/21/18 11:28: Pharmacy Note Subjective US was negative per progress note; MD thinks most likely etiology is heartburn/GERD Objective BP-136/97 afebrile Assessment Oxacillin 2gram IV Q4h for 6 weeks of treatment started 12/13/18 enoxaparin discontinued, calcium carbonate ordered PRN Pt's own Clonidine patch is upstairs in med cassette Plan possible nutrition consult? Addendum entered by Dary Rivera 12/20/18 11:20: Pharmacy Note Subjective pt. not sleeping well, complained of possible gallbladder pain following eating pizza per nursing report Objective VS-okay Assessment Oxacillin 2gram IV Q4h for 6 weeks of treatment started 12/13/18 no med changes so far today Pt's own Clonidine patch is upstairs in med cassette Plan US of abdomen ordered Possibility of continuing therapy at home, CM working on it Addendum entered by Elen Balderas 12/19/18 13:16: Pharmacy Note Subjective c/o discomfort around PICC line-looks good per RN More engaged yesterday, cheerful, talkative Objective VS ok, pain 7/10, no labs Assessment Oxacillin 2gram IV Q4h for 6 weeks of treatment started 12/13/18 Pt's own Clonidine patch is upstairs in med cassette, although we do stock it as non-formulary No med changes today Plan Possibility of continuing therapy at home, CM working on it end date: aprox 01/23/19 Addendum entered by Elen Balderas 12/18/18 13:18: Pharmacy Note Subjective SWINGBED LEVEL-1 for Psoas abscess Objective VS ok, pain 6/10, no labs/lytes today Micro hip collected 12/09/18: Staph Aureus Assessment Oxacillin 2gram IV Q4h for 6 weeks of treatment started 12/13/18 Plan end date: aprox 01/23/19 Possibility of continuing therapy at home, CM working on it Possible need for Psych consult-patient has been here numerous times, well known by staff Original Note: Admission Pharmacy Clinical Review Code Status Full Code Current Weight 137.2 kg Renally Cleared and Narrow Therapeutic Index Meds N/A QTc Value / Action Taken N/A BP Control, Fever 140/84; afebrile Electrolytes reviewed all WNL DVT Prophylaxis Enoxaparin 40mg Opiate Usage / Scheduled Bowel Regimen Ordered n/a Plt/SCr for Heparin / Enoxaparin 232/1.16 INR for Warfarin H/H stable, WBC/Bands H/H 11/34.1; WBC 8.86 Antibiotic appropriateness Yes -- ID rec'd Cultures and Sensitivities None pending Surgical ABX d/c within 24 hr n/a DM control / Insulin Dosing BG 102; no hx dm Heart Failure (Check EF%) (PAMELA's, B-Block, Diuretics) amlodipine (not ordered), clonidine 0.1mg patch weekly IV to PO Switch n/a Home Meds Reviewed yes Home Meds Not Ordered ALL ORDERED Comments Patient moved to swingbed as he receives 6 weeks of IV oxacillin
--- NOTE | 2019-01-03 13:25 | DI.RAD_ITS ---
SYMPTOMS/DIAGNOSIS: GROSS HEMATURIA RETROGRADE IN THE OR: Fluoroscopy Time: 49.7 sec, 27.77 mGy C-arm fluoroscopy was utilized by Dr. Yañez. Please see Dr. Yañez's procedure note. Hard copies show retrograde ureterograms performed bilaterally.
[2019-01-03] MEDS: Lactated Ringers 1,000 ML 200 ML IV (13:30)
[2019-01-03] MEDS: Lidocaine 2% Jelly 6 ML SYR UD (14:15)
[2019-01-03] MEDS: Omnipaque 300 MG/ML 50 ML BTL UD (14:15)
--- NOTE | 2019-01-03 14:27 | NUR.NOTE ---
Nursing Note: Noticed visitor Abhi smelled of alcohol
--- NOTE | 2019-01-03 15:19 | ROE_ITS ---
DATE OF PROCEDURE: January 03, 2019 PREOPERATIVE DIAGNOSIS: Gross hematuria. POSTOPERATIVE DIAGNOSIS: Same. PROCEDURE: Cystoscopy with bilateral retrograde pyelograms. SURGEON: Hussein Yañez M.D. ANESTHESIA: General. COMPLICATIONS: None. FINDINGS: No evidence of extravasation from the left ureter. HISTORY: This is a 43-year-old gentleman who has a history of a retroperitoneal abscess on the left side. He is currently on prolonged antibiotic therapy. He's had multiple procedures to attempt to d rain the abscess. Recently he noticed gross hematuria. He was evaluated with a CT with contrast. There appeared to be some dilation in the proximal left ureter and there was a concern that he may be developing a fistul a between the abscess and the left ureter. He presents for a cystoscopy and retrograde pyelogram for further evaluation. If any extravasation of contrast is identified, or if obstruction is suspected, a stent will be placed. OPERATIVE REPORT: The patient was brought to the Operating Room on 01/03/19. After successful inducti on of general anesthesia, he was placed in the dorsal lithotomy position. His genitalia was prepped and draped. 2% Xylocaine jelly was instilled into the urethra to act as a local anesthetic. A 22 Armenian rigid cy stoscope was passed through the urethra into the bladder. The urethra and bladder were inspected wit h a 30-degree lens. The pendulous, bulbous and membranous urethras all appeared normal with no strictures. There were so me inflammatory polyps around the verumontanum. The prostate itself appeared normal with no active b leeding. No significant lateral lobe or median lobe hypertrophy was identified. The bladder neck was then entered and the bladder mucosa was inspected. Both ureteral orifices are i dentified. No blood was seen coming from either side. The remainder of the bladder showed no papillary or nodular lesions. No clots were seen within the b ladder. No other significant uropathology was identified. I then passed a 6 Armenian access catheter through the cystoscope and maneuvered the tip of the cathete r into each ureteral orifice. Retrograde films were obtained by injecting Omnipaque through the acce ss catheter under fluoroscopic guidance. Both sides appeared normal on the filling phase of the retrograde pyelogram. We continued to monitor for 5 to 10 minutes with drainage films to ensure proper drainage of the left kidney, as well as the absence of extravasation. The left kidney drained quite nicely and no extravasation was seen. Based on today's examination there is no evidence of a ureteral fistula connecting to the retroperito shelly abscess cavity.
[2019-01-03] MEDS: oxyCODONE 15 MG TAB 30 MG PO ×2 (15:29→19:27)
[2019-01-03] MEDS: Phenazopyridine 200 MG TAB PO (15:44)
[2019-01-03] MEDS: DULoxetine 20 MG CAP 40 MG PO (16:22)
[2019-01-03] MEDS: Ibuprofen 800 MG TAB PO (16:22)
[2019-01-03] MEDS: Lactobacillus Acidophilus CAP 1 CAP PO ×2 (16:23→19:26)
[2019-01-03] MEDS: fentaNYL 75 MCG PATCH TD (18:31)
[2019-01-03] MEDS: Acetaminophen 325 MG TAB PO (19:27)
[2019-01-03] MEDS: Pantoprazole 40 MG TABCR PO (19:27)
[2019-01-03] MEDS: Docusate Sodium 100 MG CAP PO (19:27)
[2019-01-04] MEDS: Normal Saline Flush 10 ML SYR IVP ×4 (01:50→14:39)
[2019-01-04 03:31] VITALS: BP 156/84; PULSE 76; RESP 18; TEMP 36.7; O2SAT 98
[2019-01-04] MEDS: oxyCODONE 15 MG TAB 30 MG PO ×4 (03:35→16:56)
[2019-01-04 07:05] VITALS: BP 162/92; PULSE 77; RESP 14; TEMP 37.1; O2SAT 96
[2019-01-04] MEDS: Lactobacillus Acidophilus CAP 1 CAP PO ×2 (07:40→14:40)
[2019-01-04] MEDS: DULoxetine 20 MG CAP 40 MG PO (07:40)
[2019-01-04] MEDS: Docusate Sodium 100 MG CAP PO (07:41)
[2019-01-04] MEDS: Acetaminophen 325 MG TAB PO ×3 (07:41→16:56)
[2019-01-04] MEDS: amLODIPine 5 MG TAB PO (07:41)
[2019-01-04] MEDS: Pantoprazole 40 MG TABCR PO (07:42)
[2019-01-04] MEDS: Ibuprofen 800 MG TAB PO (09:23)
--- NOTE | 2019-01-04 10:13 | NUR.NOTE ---
Nursing Note: At beginning of shift around 0730 during nursing shift assessment, patient seemed flat and withdrawn. Patient has a significant history of depression with history of suicide attempts. Patient Answers with short sentences only and is making mostly yes or no statements. Patient states it is because of his pain. Patient was administered pain meds at that time for left hip and RUQ pain with oxycodone and Tylenol per pt request. About an hour and a half later to reassess, patient stated he was still in a lot of pain and requesting is ibuprofen at that time. An hour later patient states his pain is about the same at this morning. Patient also given aqua k pack to help with pain. As the morning has continued, patient is seeming to be more irritable and withdrawn. Patient looks tearful at times. Patient is not making eye contact. Patient met with Dr. Remy this morning and seemed more upset after. Patient is frequently monitored at this time for safety checks.
[2019-01-04 11:23] VITALS: BP 172/120; PULSE 72; RESP 18; TEMP 36.4; O2SAT 97
[2019-01-04] MEDS: Phenazopyridine 100 MG TAB 200 MG PO ×2 (11:29→14:40)
--- NOTE | 2019-01-04 13:19 | NUR.NOTE ---
Nursing Note: Patient being transitioned from acute to swing bed status.
--- NOTE | 2019-01-04 13:53 | CMPROGNOTE_ITS ---
- If Service Date Differs Date of service: 01/04/19 Time of Service: 12:37 Care Management Progress Note S/O: Jason was transition to acute care on 01/03/19 for surgical procedure concerns for fistula r/t Psoas abscess, left. Jason will transition back to SB1 once he no longer meets acute care level of care. CM did review behavior plan with Jason and the team. He was able to meet with today, please see her note. Jason states he is not using any medications that are not presc ribed to him. He agrees to Random UDS and keeping his Picc line wrapped when he is off the unit. Jason states his goals are to reduce pain medication throughout his stay as he would like to no longer need it. He is able to recognize that he has a tolerance. He states walking outdoors helps him manage his stress and think about information and process. He states he would like to participate in his plan of care including reduction of his oral pain management and would like it to be ordered every 4-6 hours so that he can increase the time between doses. The goal per provider is to treat the pain with transdermal Fentanyl and reduce the frequency and amount of Oxycodone. Jason does have chronic pain related to infection left hip and involvement of hardware in his spine. He is being treated with IV antibiotics scheduled until 01/24/19. Jason does continue to have hematuria a CT abd/pelvis ordered revealing left retroperitoneal inflammation or fibrosis but no fistula per Urology notes. Jason had labs on 01/03/19 his HGB and HCT where 12.7 and 39.1.and his ESR remains elevated however down from admission at 72. He continues to receive IV antibiotics q4 hours and per provider is stable to transition back to SB1 today. A; Jason is a 43 year old male admitted to acute status related to heme positive urine in the setting, Psoas abscess, P: CM reviewed the paperwork with Jason including the SB1 packet and contract. Jason agrees to return to SB1 and will continue to receive IV antibiotics. End date 01/24/19. CM reviewed the plan with Jason and he agrees to 1. PICC wrapping. Primary nurse will find appropriate wrapping that is less likely to move and keep line in place. 2. Random urine UDS, and 3. continue to work toward of a plan of reducing narcotic pain medication and coordination of service prior to discharge for supports in continuing his toward his goals.
[2019-01-04 15:47] VITALS: BP 170/119; PULSE 89; RESP 18; TEMP 36.4; O2SAT 96
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
--- NOTE | 2019-01-04 16:45 | NUR.NOTE ---
Awaiting for discharge order from acute to swingbed1.Nursing Note:
--- NOTE | 2019-01-04 16:59 | NUR.NOTE ---
pts arm is wrapped with gauze and tape. Gauze marked. Nursing Note:
== END 2019-01-04 17:25 | disposition swing bed (61) | DRG 695 ==
PROVIDERS: Urology; Admitting Provider Nurse Practitioner Family; PCP Nurse Practitioner Family; Visit Provider Nurse Practitioner
PROC: BT14YZZ Fluoroscopy of Kidneys, Ureters and Bladder using Other Contrast (ICD-10-PCS; CPT 52005; principal; 2019-01-03 13:15)
DX: R31.0 Gross hematuria (principal); M71.552 Other bursitis, not elsewhere classified, left hip; K68.12 Psoas muscle abscess; N13.5 Crossing vessel and stricture of ureter without hydronephrosis; G89.29 Other chronic pain; F41.9 Anxiety disorder, unspecified; I10 Essential (primary) hypertension; F31.9 Bipolar disorder, unspecified; K21.9 Gastro-esophageal reflux disease without esophagitis; Z79.2 Long term (current) use of antibiotics
CPT/HCPCS: 52005; 99223; 99239; 74420; J1100; J2250; J2405; J2700; Q9967

== ENCOUNTER 2019-01-04 17:08 | Inpatient (IN) | payer MEDICARE, MEDICAID, SELFPAY ==
--- NOTE | 2019-01-04 16:27 | CMPROGNOTE_ITS ---
- If Service Date Differs Date of service: 01/04/19 Time of Service: 16:26 Care Management Progress Note S/O: Jason was transition to acute care on 01/03/19 for surgical procedure concerns for fistula r/t Psoas abscess, left. Jason will transition back to SB1 once he no longer meets acute care level of care. CM did review behavior plan with Jason and the team. He was able to meet with today, please see her note. Jason states he is not using any medications that are not presc ribed to him. He agrees to Random UDS and keeping his Picc line wrapped when he is off the unit. Jason states his goals are to reduce pain medication throughout his stay as he would like to no longer need it. He is able to recognize that he has a tolerance. He states walking outdoors helps him manage his stress and think about information and process. He states he would like to participate in his plan of care including reduction of his oral pain management and would like it to be ordered every 4-6 hours so that he can increase the time between doses. The goal per provider is to treat the pain with transdermal Fentanyl and reduce the frequency and amount of Oxycodone. Jason does have chronic pain related to infection left hip and involvement of hardware in his spine. He is being treated with IV antibiotics scheduled until 01/24/19. Jason does continue to have hematuria a CT abd/pelvis ordered revealing left retroperitoneal inflammation or fibrosis but no fistula per Urology notes. Jason had labs on 01/03/19 his HGB and HCT where 12.7 and 39.1.and his ESR remains elevated however down from admission at 72. He continues to receive IV antibiotics q4 hours and per provider is stable to transition back to SB1 today. A; Jason is a 43 year old male admitted to acute status related to heme positive urine in the setting, Psoas abscess, P: CM reviewed the paperwork with Jason including the SB1 packet and contract. Jason agrees to return to SB1 and will continue to receive IV antibiotics. End date 01/24/19. CM reviewed the plan with Jason and he agrees to 1. PICC wrapping. Primary nurse will find appropriate wrapping that is less likely to move and keep line in place. 2. Random urine UDS, and 3. continue to work toward of a plan of reducing narcotic pain medication and coordination of service prior to discharge for supports in continuing his toward his goals.
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
--- NOTE | 2019-01-04 17:47 | NUR.NOTE ---
Pt transitioned from acute to swingbed 1. See Account [id number] from 1500 vitals and assessment. Nursing Note:
[2019-01-04] MEDS: Normal Saline Flush 10 ML SYR IVP (17:59)
[2019-01-04] MEDS: Lactobacillus Acidophilus CAP 1 CAP PO (21:05)
[2019-01-04] MEDS: Pantoprazole 40 MG TABCR PO (21:05)
[2019-01-04] MEDS: oxyCODONE 15 MG TAB 30 MG PO (21:05)
[2019-01-04] MEDS: Lidocaine 5% Patch 2 PATCH TP (21:06)
[2019-01-04] MEDS: Phenazopyridine 200 MG TAB PO (21:06)
[2019-01-04] MEDS: Docusate Sodium 100 MG CAP PO (21:06)
[2019-01-05] MEDS: oxyCODONE 15 MG TAB 30 MG PO ×6 (01:12→21:49)
[2019-01-05] MEDS: Ibuprofen 800 MG TAB PO (01:15)
[2019-01-05] MEDS: Acetaminophen 325 MG TAB PO (05:03)
[2019-01-05] MEDS: amLODIPine 5 MG TAB PO (07:56)
[2019-01-05] MEDS: DULoxetine 30 MG CAP 60 MG PO (07:56)
[2019-01-05] MEDS: Pantoprazole 40 MG TABCR PO ×2 (07:56→21:49)
[2019-01-05] MEDS: Phenazopyridine 200 MG TAB PO (07:56)
[2019-01-05] MEDS: Lactobacillus Acidophilus CAP 1 CAP PO ×3 (07:56→21:49)
[2019-01-05] MEDS: Docusate Sodium 100 MG CAP PO ×2 (07:56→21:48)
[2019-01-05 08:07] VITALS: BP 159/107; PULSE 72; RESP 16; TEMP 36.7; O2SAT 97
--- NOTE | 2019-01-05 08:08 | NUR.NOTE ---
Nursing Note: 0805: RN in room to assess pt. pt sleeping upon RN arrival to room. pt awakened to obtain VS. pt noted to be diaphoretic, slurred speech, questioning when his next pain medication is due; pt had been medicated by previous RN at approximately 0500, pt questions when next antibiotic is due; RN states 1000. clonidine patch to left shoulder, fentanyl patch to left scapula region. pt removes lidocaine patches for RN and hands them to RN. RN questions pt about urine color; pt states that his urine is pink; RN notes clear yellow urine in toilet upon leaving room. Left picc is currently loosely wrapped with gauze; lumen is covered with gauze. continue to monitor.
[2019-01-05] MEDS: Lidocaine Patch Removal 2 EACH TD (08:13)
[2019-01-05] MEDS: Normal Saline Flush 10 ML SYR IVP ×3 (10:17→14:05)
[2019-01-05 10:55] LABS: Abs Immature Grans 0.04 k/cumm (0.0-0.09); Absolute Basophil Count 0.03 k/cumm (0.0-0.2); Absolute Eosinophil Count 0.26 k/cumm (0.0-0.7); Absolute Lymphocyte Count 3.01 k/cumm (1.2-3.4); Absolute Monocyte Count 0.68 k/cumm (0.11-0.7); Absolute Neutrophil Count 4.42 k/cumm (1.2-6.7); Basophils % 0.4; Eosinophils % 3.1; HCT 38.6 % (40.0-50.0); HGB 12.3 g/dL (13.5-17.5); Immature Grans % 0.5; Lymphocytes % 35.7; Mean Corp. HGB Concentration 31.9 g/dL (32.0-36.0); Mean Corpuscular Hemoglobin 26.1 pg (27.0-33.0); Mean Platelet Volume 8.8 fL (8.0-11.0); Monocytes % 8.1; Neutrophils % 52.2; Platelet Count 257 x1000/uL (130-400); RBC 4.71 m/cumm (4.50-6.00); RBC Distribution Width 15.8 % (11.8-14.1); White Blood Cell Count 8.44 k/cumm (4.4-10.8)
[2019-01-05 11:06] LABS: Anion Gap 6.7 mmol/L (3-11); BUN 18 mg/dL (7-18); CO2 31.3 mmol/L (21.0-32.0); CREATININE 1.15 mg/dL (0.70-1.30); Calcium 9.4 mg/dL (8.5-10.1); Chloride 102 mmol/L (98-107); Glucose 102 mg/dL (70-100); Potassium 3.3 mmol/L (3.5-5.1); Sodium 140 mmol/L (136-145)
[2019-01-05 11:16] LABS: C-Reactive Protein 1.35 mg/dL (0.0-0.3)
--- NOTE | 2019-01-05 11:27 | W.PM.PROGNOT ---
Date of Service Date of service: 01/05/19 Time of Service: 11:27 Assessment and Plan (1) Gross hematuria: Current visit: No Status: Acute He underwent Cystoscopy with bilateral retrograde pyelograms by Dr. Yañez who notes: no evidence of extravasation from the left ureter. He continues to have some left-sided discomfort. He has been taking pyridium for dysuria. Hold Pyridium to assess for ongoing dysuria and/or hematuria. Continue to monitor for left flank pain. If this does not resolve, will discuss with urology. (2) Psoas abscess, left: Current visit: No Status: Acute Continue IV Oxacillin for a planned course of 6 weeks, initiated on 12/13/2018, with end date of 01/24. Will need weekly CBC, CMP, ESR, and CRP, with reimaging in the future. Labs today show improved CRP to 1.35. No leukocytosis. Continue local wound care and pain control. Actively working on decreasing oxycodone while adding fentanyl patch for continuous pain control. Increase interval between oxycodone doses to every 6 hours as needed from every 4 hours as needed. Add scheduled Tylenol. Hold ibuprofen in the setting of hematuria. (3) Anxiety: Current visit: No Status: Chronic He is followed by Dr. Gilbert, Psychiatry, who recommends increasing Cymbalta. Cymbalta increased from 40 mg daily to 60 mg daily yesterday. Continue to monitor. (4) Chronic pain: Current visit: No Status: Chronic In the setting of psoas abscess and with history of substance abuse. Has been on oxycodone. There is a plan to actively decrease oxycodone use while titrating Fentanyl patch dose. See above. (5) Hypertension: Current visit: No Status: Chronic Continue clonidine patch, amlodipine and pain control. (6) DVT prophylaxis: Current visit: No Status: Acute Chemical DVT prophylaxis not indicated in a 43 year old patient that ambulates frequently throughout the day. (7) Discharge planning issues: Current visit: Yes Status: Acute May consider substance abuse treatment at time of discharge. States he does not want to be on pain medication at all. Palliative consult placed after discussing case with Dr. Gilbert. This case was discussed with Dr. Connell who is in agreement. Subjective Interval history since last seen: Nursing reported that Mr. Cuevas was difficult to awaken, diaphoretic and slurring his words this morning. He was subsequently seen by Dr. Gilbert who did not have immediate concerns. Jason reports feeling tired today, he reports that he was awake all night and finally fell asleep at 7 AM. He was then awakened by his nurse at 8 AM and had difficulty waking up initially. He also reports that in the past when his duloxetine has been increased he has been tired for the first few days. His duloxetine dose was increased today. Given the nursing report, he had labs drawn. He preferred not to have blood cultures drawn, as he has been afebrile and is feeling like himself. He reports that his right upper quadrant pain has improved drastically. He continues to have low back pain primarily on the left, he has been using a Lidoderm patch at night which helps. He continues to have some increased discomfort in his left flank area status post cystoscopy. He is unsure if he has hematuria due to taking Pyridium. He is agreeable to stopping the Pyridium for now to see if his dysuria has improved and to assess for hematuria. We also discussed his pain regimen. Given the increased Cymbalta in the edition of the fentanyl patch, he is agreeable to extending his oxycodone to every 6 hours as needed dosing. We will also schedule acetaminophen every 8 hours for increased pain control. Will hold Motrin in the setting of hematuria. We discussed collecting a UA to ensure that there is no urinary tract infection status post instrumentation. He is agreeable and requesting that we add a urine drug screen as well, as he would like people to know that he is not using illicit drugs. Exam Narrative Exam Narrative: He is sitting up at the edge of the bed, awake, alert and oriented. In no acute distress. He is pleasant and cooperative, speech is clear and coherent. No garbled or slurred speech. Pupils are equal and round, mucous membranes moist. Extremities are without edema. Objective Objective Clinical Data: Abnormal lab results 01/05/19 01/05/19 01/05/19 Range/Units 10:40 10:40 10:40 Hgb 12.3 L (13.5-17.5) g/dL Hct 38.6 L (40.0-50.0) % MCH 26.1 L (27.0-33.0) pg MCHC 31.9 L (32.0-36.0) g/dL RDW 15.8 H (11.8-14.1) % Potassium 3.3 L (3.5-5.1) mmol/L Glucose 102 H (70-100) mg/dL C-Reactive Protein 1.35 H (0.0-0.3) mg/dL Vital Signs Temperature 36.7 C 01/05/19 08:07 Temperature Source Skin 01/05/19 08:07 Pulse 72 01/05/19 08:07 Pulse Rhythm Regular 01/05/19 08:00 Respiratory Rate 16 01/05/19 08:07 Respiratory Effort Non-Labored 01/05/19 08:00 Respiratory Depth Normal 01/05/19 08:00 Respiratory Pattern Normal 01/05/19 08:00 Blood Pressure 159/107 H 01/05/19 08:07 Pulse Oximetry 97 01/05/19 08:07 Oxygen Delivery Method Room Air 01/05/19 08:07 Oxygen Flow Rate 0 01/05/19 08:07 Pain Level 8 01/05/19 09:13 Comment 01/05/19 08:07 Intake & Output 01/04/19 01/04/19 01/05/19 11:59 23:59 11:59 Intake Total 590 / 590 100 / 100 Output Total 500 / 500 Balance 590 / 590 -400 / -400 Intake: IV 100 / 100 100 / 100 Oral 490 / 490 Output: Urine 500 / 500 Other: Urine Color Light Faith Urine Appearance Clear Clear Urine Odor None Voiding Methods Toilet Laboratory Results WBC 8.44 k/cumm (4.4-10.8) 01/05/19 10:40 RBC 4.71 m/cumm (4.50-6.00) 01/05/19 10:40 Hgb 12.3 g/dL (13.5-17.5) L 01/05/19 10:40 Hct 38.6 % (40.0-50.0) L 01/05/19 10:40 MCV 82.0 fL (80-95) 01/05/19 10:40 MCH 26.1 pg (27.0-33.0) L 01/05/19 10:40 MCHC 31.9 g/dL (32.0-36.0) L 01/05/19 10:40 RDW 15.8 % (11.8-14.1) H 01/05/19 10:40 Plt Count 257 x1000/uL (130-400) 01/05/19 10:40 MPV 8.8 fL (8.0-11.0) 01/05/19 10:40 Immature Gran % 0.5 01/05/19 10:40 Neutrophils % 52.2 01/05/19 10:40 Lymphocytes % 35.7 01/05/19 10:40 Monocytes % 8.1 01/05/19 10:40 Eosinophils % 3.1 01/05/19 10:40 Basophils % 0.4 01/05/19 10:40 Absolute Neutrophils 4.42 k/cumm (1.2-6.7) 01/05/19 10:40 Absolute Lymphocytes 3.01 k/cumm (1.2-3.4) 01/05/19 10:40 Absolute Monocytes 0.68 k/cumm (0.11-0.7) 01/05/19 10:40 Absolute Eosinophils 0.26 k/cumm (0.0-0.7) 01/05/19 10:40 Absolute Basophils 0.03 k/cumm (0.0-0.2) 01/05/19 10:40 Sodium 140 mmol/L (136-145) 01/05/19 10:40 Potassium 3.3 mmol/L (3.5-5.1) L 01/05/19 10:40 Chloride 102 mmol/L (98-107) 01/05/19 10:40 Carbon Dioxide 31.3 mmol/L (21.0-32.0) 01/05/19 10:40 Anion Gap 6.7 mmol/L (3-11) 01/05/19 10:40 BUN 18 mg/dL (7-18) 01/05/19 10:40 Creatinine 1.15 mg/dL (0.70-1.30) 01/05/19 10:40 Estimated GFR/1.73 m2 >= 60.00 (mL/min/1.73m2) 01/05/19 10:40 Glucose 102 mg/dL (70-100) H 01/05/19 10:40 Calcium 9.4 mg/dL (8.5-10.1) 01/05/19 10:40 Magnesium 2.0 mg/dL (1.8-2.4) 01/05/19 10:40 C-Reactive Protein 1.35 mg/dL (0.0-0.3) H 01/05/19 10:40
[2019-01-05] MEDS: Acetaminophen 500 MG TAB 1000 MG PO ×2 (11:47→21:48)
[2019-01-05] MEDS: Potassium Chloride 20 MEQ TABCR 40 MEQ PO ×2 (11:48→21:49)
[2019-01-05 16:42] LABS: Bilirubin Negative (Negative); Blood Negative (Negative); Clarity Clear; Glucose 100 mg/dL (Negative); Ketones Trace mg/dL (Negative); Leukocyte Esterase Negative (Negative); Nitrite Positive (Negative); pH 6.5 (5-8)
[2019-01-05 16:52] LABS: *AMPHETAMINES SCREEN URINE Negative (Negative); *BARBITURATES SCREEN URINE Negative (Negative); *BENZODIAZEPINES SCREEN URINE POSITIVE (Negative); Cannabinoids THC Negative (Negative); Cocaine Screen,Urine Negative (Negative); METHADONE URINE SCREEN Negative (Negative); OPIATES URINE SCREEN POSITIVE (Negative)
[2019-01-05 16:53] LABS: Tricyclic Antidepressants Negative (Negative)
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
--- NOTE | 2019-01-05 17:25 | CM.SWINGPC ---
- If Service Date Differs Date of service: 01/05/19 Time of Service: 17:25 Swingbed Plan of Care Plan of care: SWING BED PROGRAM ACTIVITIES/DISCHARGE PLAN OF CARE ACTIVITIES PLAN Date:01/05/19 Identified Need: Individual Activity Intervention/Plan:including Cart, music therapy, pet therapy, television, reading books and magazines. Jason enjoys [employer] puzzles which he can obtain of the activity cart. Jason enjoys Reiki when it is available and walks outside. Initials MARY ANN DISCHARGE PLAN Date:01/05/19 Identified Need: Treatment of infection of his left hip. Wound care. Safe discharge plan. Intervention/Plan:IV ABX x 6 weeks q 4 hours. End date 01/24/19. Dressing [facility]. Referrals to chronic manager career and community connections housing resources. Initials MARY ANN
--- NOTE | 2019-01-05 17:30 | CMSCP_ITS ---
- If Service Date Differs Date of service: 01/05/19 Time of Service: 17:25 Swingbed Plan of Care Plan of care: SWING BED PROGRAM ACTIVITIES/DISCHARGE PLAN OF CARE ACTIVITIES PLAN Date:01/05/19 Identified Need: Individual Activity Intervention/Plan:including Cart, music therapy, pet therapy, television, reading books and magazines. Jason enjoys [employer] puzzles which he can obtain of the activity cart. Jason enjoys Reiki when it is available and walks outside. Initials MARY ANN DISCHARGE PLAN Date:01/05/19 Identified Need: Treatment of infection of his left hip. Wound care. Safe discharge plan. Intervention/Plan:IV ABX x 6 weeks q 4 hours. End date 01/24/19. Dressing changes by [facility] staff. Referrals to chronic nursing care attendant and community connections housing resources. Initials MARY ANN
[2019-01-05 18:25] LABS: WBC 0-2 HPF (0-5)
[2019-01-05 18:26] LABS: Bacteria Moderate HPF (Negative); C & S Indicated? No; Casts Negative LPF (Negative); Crystals Negative HPF (Negative); Epithelial Cells Negative HPF (Negative); Mucus Trace (Negative); Other Cells Negative (Negative); RBC Negative (0-2)
[2019-01-05] MEDS: Lidocaine 5% Patch 2 PATCH TP (21:48)
[2019-01-06] MEDS: oxyCODONE 15 MG TAB 30 MG PO ×4 (03:16→21:06)
[2019-01-06] MEDS: Acetaminophen 500 MG TAB 1000 MG PO ×3 (03:17→19:16)
[2019-01-06] MEDS: amLODIPine 5 MG TAB PO (08:04)
[2019-01-06] MEDS: DULoxetine 30 MG CAP 60 MG PO (08:04)
[2019-01-06] MEDS: Docusate Sodium 100 MG CAP PO ×2 (08:04→19:25)
[2019-01-06] MEDS: Potassium Chloride 20 MEQ TABCR 40 MEQ PO ×2 (08:04→19:25)
[2019-01-06] MEDS: Lactobacillus Acidophilus CAP 1 CAP PO ×3 (08:05→19:25)
[2019-01-06] MEDS: Pantoprazole 40 MG TABCR PO ×2 (08:05→19:25)
[2019-01-06] MEDS: Normal Saline Flush 10 ML SYR IVP ×3 (08:06→19:18)
[2019-01-06] MEDS: Lidocaine Patch Removal 2 EACH TD (08:18)
[2019-01-06 08:27] VITALS: BP 165/94; PULSE 81; RESP 16; TEMP 36.3; O2SAT 96
--- NOTE | 2019-01-06 09:39 | PSYCO_ITS ---
Date of service: 01/05/19 Time of Service: 08:30 History of Present Illness Narrative: Events since initial consultation/last note: Overnight events: none Medications: Labs last 24 hours: Subjective: Mood: depressed did not enjoy Abhi's visit yesterday. Feels very sleepy this morning which he thinks is the side effect of increased dose of duloxetine to 60mg this morning. Previous increases caused sleepiness for a couple days then wore off. Does not want to change timing or size of dose, assuming side effect will resolve. Sleep: really bad I only got an hour starting at 6am this morning. I went outside last night for fresh air. REVIEW OF SYSTEMS: Constitutional: +fatigue Musculoskeletal/neuro: +pain in groin Psych: see above MENTAL STATUS EXAM: Constitutional: appears healthy, stated age, appropriate dress, grooming, hygiene. Sitting up on side of bed rubbing eyes. Attitude: cooperative Psychomotor: no retardation or agitation Speech: non-pressured, normal volume and prosody. No articulation problems noted. Associations: no looseness Thought process: linear, logical, goal directed Thought content without psychosis, delusions, obsessions No suicidal or homicidal ideations Hallucinations denied Mood: depressed Affect: congruent, anxious Attention/Concentration: grossly intact Judgment/insight: fair/fair Oriented x 4 Language appropriate to age and education Fund of knowledge appropriate to age and education Memory intact to recent and remote events Other cognitive testing: none Assessment and Plan (1) Major depressive episode: Current visit: No Status: Acute Jason Cuevas is a 43 year old male admitted for pain control and IV antibiotic for psoas muscle abscess. History and clinical exam is consistent with major depressive episode which is now insufficiently treated with dulox etine at 40mg. Today is his first dose at 60mg and I think he has good insight into the temporary adverse effects of the sedation associated with initial increase. Recommendations: - continue duloxetine 60mg daily - continue clonidine 0.1mg/24hr transdermal Safety: no acute concerns for harm to self or others in the hospital. Denies active suicidal ideations and reports no intent to act on them in the hospital should they arise. I will check back with him tomorrow regarding mood and effects of duloxetine. [facility] Social History Smoking/Tobacco Use Status: Current every day Tobacco Type: cigarettes Alcohol Intake: never Drug use: Never Substance use type: does not use and former substance user Details: Hx drug abuse Do you feel safe at home: Yes Do you feel safe in your relationship?: Yes Results Last Vital Signs Temp 36.3 C L 01/06/19 08:27 Pulse 81 01/06/19 08:27 Resp 16 01/06/19 08:27 BP 165/94 H 01/06/19 08:27 Pulse Ox 96 01/06/19 08:27 Labs : 01/05/19 10:40 01/05/19 10:40 Laboratory Results - last 24 hr 01/05/19 01/05/19 01/05/19 10:40 10:40 10:40 WBC 8.44 RBC 4.71 Hgb 12.3 L Hct 38.6 L MCV 82.0 MCH 26.1 L MCHC 31.9 L RDW 15.8 H Plt Count 257 MPV 8.8 Immature Gran % 0.5 Neutrophils % 52.2 Lymphocytes % 35.7 Monocytes % 8.1 Eosinophils % 3.1 Basophils % 0.4 Absolute Neutrophils 4.42 Absolute Lymphocytes 3.01 Absolute Monocytes 0.68 Absolute Eosinophils 0.26 Absolute Basophils 0.03 Sodium 140 Potassium 3.3 L Chloride 102 Carbon Dioxide 31.3 Anion Gap 6.7 BUN 18 Creatinine 1.15 Estimated GFR/1.73 m2 >= 60.00 Glucose 102 H Calcium 9.4 Magnesium 2.0 C-Reactive Protein 1.35 H Urine Color Urine Clarity Urine pH Ur Specific [place] Urine Protein Urine Ketones Urine Blood Urine Nitrite Urine Bilirubin Urine Urobilinogen Ur Leukocyte Esterase Urine RBC Urine WBC Ur Epithelial Cells Urine Crystals Urine Bacteria Urine Casts Urine Mucus Urine Other Ur Culture Indicated? Urine Glucose Urine Opiates Screen Urine Methadone Screen Ur Barbiturates Screen Ur Tricyclics Screen Ur Amphetamines Screen U Benzodiazepines Scrn Urine Cocaine Screen Ur THC Screen 01/05/19 01/05/19 15:50 15:50 WBC RBC Hgb Hct MCV MCH MCHC RDW Plt Count MPV Immature Gran % Neutrophils % Lymphocytes % Monocytes % Eosinophils % Basophils % Absolute Neutrophils Absolute Lymphocytes Absolute Monocytes Absolute Eosinophils Absolute Basophils Sodium Potassium Chloride Carbon Dioxide Anion Gap BUN Creatinine Estimated GFR/1.73 m2 Glucose Calcium Magnesium C-Reactive Protein Urine Color [place] Urine Clarity Clear Urine pH 6.5 Ur Specific [place] 1.020 Urine Protein 100 H Urine Ketones Trace H Urine Blood Negative Urine Nitrite Positive H Urine Bilirubin Negative Urine Urobilinogen 1.0 H Ur Leukocyte Esterase Negative Urine RBC Negative Urine WBC 0-2 Ur Epithelial Cells Negative Urine Crystals Negative Urine Bacteria Moderate Urine Casts Negative Urine Mucus Trace Urine Other Negative Ur Culture Indicated? No Urine Glucose 100 Urine Opiates Screen Positive Urine Methadone Screen Negative Ur Barbiturates Screen Negative Ur Tricyclics Screen Negative Ur Amphetamines Screen Negative U Benzodiazepines Scrn Positive Urine Cocaine Screen Negative Ur THC Screen Negative
--- NOTE | 2019-01-06 09:40 | PSYCO_ITS ---
Date of service: 01/06/19 Time of Service: 09:00 History of Present Illness Narrative: Events since initial consultation/last note: none Overnight events: none Medications: - increase of duloxetine to 60mg Subjective: Mood: better, enjoyed his visit with friend Abhi instead of feeling irritable with him. Thinks the increase of duloxetine is helping him. Wants to stay with it. Pain: I'm hanging in there, it's hard. Sleep: better last night. I got 2-3 hours a few times. I've started having nightmares that make me sweat. He reports nightmares replay past trauma. Wonders why they are coming back now. When I suggested this might suggest that he is mentally and physically stronger, he took this as a positive sign. Anxiety: easily worries about what people think of him. Asked me to come back to the room and asked directly, Do I make you nervous? Thought I left the room quickly. Said thought was in his mind it was because of him so wanted to check. Stated that hearing my reassurance that he did not make me nervous would help put worry out of his head. REVIEW OF SYSTEMS: Constitutional: feels more rested today Musculoskeletal/neuro: +pain Psych: see above MENTAL STATUS EXAM: Constitutional: appears healthy, stated age, appropriate dress, grooming, hygiene. Sitting up on side of bed. Attitude: cooperative Psychomotor: no retardation or agitation Speech: non-pressured, normal volume and prosody. No articulation problems noted. Associations: no looseness Thought process: linear, logical, goal directed Thought content without psychosis, delusions, obsessions No suicidal or homicidal ideations Hallucinations denied Mood: better Affect: brighter, full, a bit anxious Attention/Concentration: grossly intact Judgment/insight: fair/fair Oriented x 4 Language appropriate to age and education Fund of knowledge appropriate to age and education Memory intact to recent and remote events Other cognitive testing: none Assessment and Plan (1) Major depressive episode: Current visit: No Status: Acute Jason Cuevas is a 43 year old male admitted for pain control and IV antibiotic for psoas muscle abscess. History and clinical exam is consistent with major depressive episode which is now insufficiently treated with duloxetine at 40mg and has now had two days of duloxetine at 60mg. He reports feeling better mood marie and more able to interact socially. He is sensitive to staff perceptions of him but demonstrates using good cognitive behavioral skills to check his worries/perceptions with data. Regarding trauma nightmares, I recommend waiting to see if they resolve spontaneously. I do not recommend prazosin at this time given that he is on clonidine transdermal patch. Dream rehearsal therapy may help him if nightmares persist. Recommendations: - continue duloxetine 60mg daily - continue clonidine 0.1mg/24hr transdermal Safety: no acute concerns for harm to self or others in the hospital. Denies active suicidal ideations and no intent to act on them in the hospital should th ey arise. I will continue to follow his hospital course through team meetings and happy to meet with him face to face again to address any acute changes. [facility] Social History Smoking/Tobacco Use Status: Current every day Tobacco Type: cigarettes Alcohol Intake: never Drug use: Never Substance use type: does not use and former substance user Details: Hx drug abuse Do you feel safe at home: Yes Do you feel safe in your relationship?: Yes Results Last Vital Signs Temp 36.3 C L 01/06/19 08:27 Pulse 81 01/06/19 08:27 Resp 16 01/06/19 08:27 BP 165/94 H 01/06/19 08:27 Pulse Ox 96 01/06/19 08:27 Labs : 01/05/19 10:40 01/05/19 10:40 Laboratory Results - last 24 hr 01/05/19 01/05/19 01/05/19 10:40 10:40 10:40 WBC 8.44 RBC 4.71 Hgb 12.3 L Hct 38.6 L MCV 82.0 MCH 26.1 L MCHC 31.9 L RDW 15.8 H Plt Count 257 MPV 8.8 Immature Gran % 0.5 Neutrophils % 52.2 Lymphocytes % 35.7 Monocytes % 8.1 Eosinophils % 3.1 Basophils % 0.4 Absolute Neutrophils 4.42 Absolute Lymphocytes 3.01 Absolute Monocytes 0.68 Absolute Eosinophils 0.26 Absolute Basophils 0.03 Sodium 140 Potassium 3.3 L Chloride 102 Carbon Dioxide 31.3 Anion Gap 6.7 BUN 18 Creatinine 1.15 Estimated GFR/1.73 m2 >= 60.00 Glucose 102 H Calcium 9.4 Magnesium 2.0 C-Reactive Protein 1.35 H Urine Color Urine Clarity Urine pH Ur Specific [place] Urine Protein Urine Ketones Urine Blood Urine Nitrite Urine Bilirubin Urine Urobilinogen Ur Leukocyte Esterase Urine RBC Urine WBC Ur Epithelial Cells Urine Crystals Urine Bacteria Urine Casts Urine Mucus Urine Other Ur Culture Indicated? Urine Glucose Urine Opiates Screen Urine Methadone Screen Ur Barbiturates Screen Ur Tricyclics Screen Ur Amphetamines Screen U Benzodiazepines Scrn Urine Cocaine Screen Ur THC Screen 01/05/19 01/05/19 15:50 15:50 WBC RBC Hgb Hct MCV MCH MCHC RDW Plt Count MPV Immature Gran % Neutrophils % Lymphocytes % Monocytes % Eosinophils % Basophils % Absolute Neutrophils Absolute Lymphocytes Absolute Monocytes Absolute Eosinophils Absolute Basophils Sodium Potassium Chloride Carbon Dioxide Anion Gap BUN Creatinine Estimated GFR/1.73 m2 Glucose Calcium Magnesium C-Reactive Protein Urine Color [place] Urine Clarity Clear Urine pH 6.5 Ur Specific [place] 1.020 Urine Protein 100 H Urine Ketones Trace H Urine Blood Negative Urine Nitrite Positive H Urine Bilirubin Negative Urine Urobilinogen 1.0 H Ur Leukocyte Esterase Negative Urine RBC Negative Urine WBC 0-2 Ur Epithelial Cells Negative Urine Crystals Negative Urine Bacteria Moderate Urine Casts Negative Urine Mucus Trace Urine Other Negative Ur Culture Indicated? No Urine Glucose 100 Urine Opiates Screen Positive Urine Methadone Screen Negative Ur Barbiturates Screen Negative Ur Tricyclics Screen Negative Ur Amphetamines Screen Negative U Benzodiazepines Scrn Positive Urine Cocaine Screen Negative Ur THC Screen Negative
[2019-01-06 16:17] VITALS: BP 163/100; PULSE 72; RESP 16; TEMP 36.6; O2SAT 96
[2019-01-06] MEDS: Ibuprofen 800 MG TAB PO (19:15)
[2019-01-06] MEDS: fentaNYL 75 MCG PATCH TD (19:18)
[2019-01-06] MEDS: Lidocaine 5% Patch 2 PATCH TP (19:19)
[2019-01-06] MEDS: Mylanta Suspension 30 ML CUP PO (22:03)
[2019-01-07] MEDS: Normal Saline Flush 10 ML SYR IVP ×6 (02:09→18:25)
[2019-01-07] MEDS: oxyCODONE 15 MG TAB 30 MG PO ×4 (03:01→19:33)
[2019-01-07 03:30] VITALS: BP 159/112; PULSE 78; RESP 18; TEMP 36.5; O2SAT 95
[2019-01-07] MEDS: Acetaminophen 500 MG TAB 1000 MG PO ×3 (03:43→19:34)
[2019-01-07 07:10] VITALS: BP 177/105; PULSE 78; RESP 18; TEMP 36.4; O2SAT 98
[2019-01-07] MEDS: Lidocaine Patch Removal 2 EACH TD (08:45)
[2019-01-07] MEDS: Potassium Chloride 20 MEQ TABCR 40 MEQ PO ×2 (08:48→19:33)
[2019-01-07] MEDS: amLODIPine 5 MG TAB PO (08:48)
[2019-01-07] MEDS: Docusate Sodium 100 MG CAP PO ×2 (08:48→19:33)
[2019-01-07] MEDS: Pantoprazole 40 MG TABCR PO ×2 (08:49→19:34)
[2019-01-07] MEDS: Ibuprofen 800 MG TAB PO ×2 (08:49→14:30)
[2019-01-07] MEDS: Lactobacillus Acidophilus CAP 1 CAP PO ×3 (08:49→19:33)
[2019-01-07] MEDS: cloNIDine 0.1 MG PATCH TD (11:13)
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
--- NOTE | 2019-01-07 13:05 | PDOC.CMACT ---
- If Service Date Differs Date of service: 01/07/19 Time of Service: 13:05 Care Management Activity Note A; Jsaon is a 43 year old male admitted to acute status related to heme positive urine in the setting, Psoas abscess, P: CM reviewed the paperwork with Jason including the SB1 packet and contract. Jason agrees to return to 1 and will continue to receive IV antibiotics. End date 01/24/19. CM reviewed the plan with Jason and he agrees to 1. PICC wrapping. Primary nurse will find appropriate wrapping that is less likely to move and keep line in place. 2. Random urine UDS, and 3. continue to work toward of a plan of reducing narcotic pain medication and coordination of service prior to discharge for supports in continuing his toward his goals.
--- NOTE | 2019-01-07 14:48 | NUR.NOTE ---
Nursing Note: [id number]: dental sales representative from [facility], Ming Blanc, came and picked up CADD prism pump with serial # [id number]. pump and nylon black bag sent with [employer]. message left with HUNTER Ramos and Lilliam Nix is aware. RN provided with yellow return ticket which has been placed in pt's chart.
--- NOTE | 2019-01-07 15:47 | PHARADMIT ---
Addendum entered by Francesco Luis III 01/21/19 14:30: Pharmacy Note VS-OK No Labs [place] [facility] [place], patient Oxacilin end date extended another four weeks. Adding Rifampin was discussed, (watch LFTs if ordered) Patient had fall, and has been set back a bit, lower extremety weakness. Medrol Dosepak and IV Toradol stated for pain. Ibuprofen on hold Addendum entered by Francesco Luis III 01/21/19 14:29: Addendum entered by Dary Rivera 01/12/19 12:14: swingbed for IV oxacillin for 6 weeks, initiated on 12/13/2018, with end date of 01/24. BP-135/92 other VS okay, labs okay ESR-47(down) lisinopril started on 01/10 fentanyl patch discontinued and oxycodone changed back to 30 mg oxycodone q4h PRN, as the fentanyl and decreased oxycodone was not working for the pt and the pt was going into withdrawals per nursing report; pt had too much pain to get out of bed this morning and refused the lidocaine patch last night per morning report Addendum entered by Susannah Aguirre 01/08/19 10:17: pt swingbed Continue IV Oxacillin for a planned course of 6 weeks, initiated on 12/13/2018, with end date of 01/24. pain meds to be adjusted. plan was for fentanyl patch start and possibly increased and PO oxycodone to be decreased duloxetine dose increased to 60mg Original Note: Admission Pharmacy Clinical Review LEFT PSOAS ABSCESS 9chronioc pain) Code Status Full Code Current Weight Wgt-136.9 kg Renally Cleared and Narrow Therapeutic Index Meds CrCl~ 95 mL/min Meds-OK QTc Value / Action Taken none current BP Control, Fever BP-177/105 Tmax- 36.7C Electrolytes reviewed Na- 140 K+3.3 Mag-2.0 DVT Prophylaxis None Opiate Usage / Scheduled Bowel Regimen Ordered Yes Yes Plt/SCr for Heparin / Enoxaparin Plts-257 SCr-1.15 INR for Warfarin na H/H stable, WBC/Bands H&H- 12.3/38.6 WBC- 8.44 Antibiotic appropriateness Oxacillin Cultures and Sensitivities Blood cultures-Cancelled Surgical ABX d/c within 24 hr na DM control / Insulin Dosing BG- 102 Heart Failure (Check EF%) (PAMELA's, B-Block, Diuretics) Norvasc, Catapres tts, IV to PO Switch No Home Meds Reviewed Yes Home Meds Not Ordered Ordered Comments Has Duragesic & Lidoderm PAtches, Oxycodone APAP & iBUPROFEN FOR PAIN
[2019-01-07 15:48] VITALS: BP 146/90; PULSE 74; RESP 16; TEMP 36.7; O2SAT 94
[2019-01-07] MEDS: Lidocaine 5% Patch 2 PATCH TP (19:29)
[2019-01-07] MEDS: DULoxetine 30 MG CAP 60 MG PO (22:11)
[2019-01-08] MEDS: oxyCODONE 15 MG TAB 30 MG PO ×2 (01:56→07:38)
[2019-01-08] MEDS: Acetaminophen 500 MG TAB 1000 MG PO ×3 (04:12→19:14)
[2019-01-08 04:31] VITALS: BP 145/88; PULSE 83; RESP 18; TEMP 36.8; O2SAT 98
[2019-01-08] MEDS: Potassium Chloride 20 MEQ TABCR 40 MEQ PO ×2 (07:39→19:14)
[2019-01-08] MEDS: amLODIPine 5 MG TAB PO (07:39)
[2019-01-08] MEDS: Pantoprazole 40 MG TABCR PO ×2 (07:39→19:14)
[2019-01-08] MEDS: Lactobacillus Acidophilus CAP 1 CAP PO ×3 (07:39→19:14)
[2019-01-08] MEDS: Docusate Sodium 100 MG CAP PO ×2 (07:39→19:14)
[2019-01-08] MEDS: Lidocaine Patch Removal 2 EACH TD (07:39)
[2019-01-08 07:55] VITALS: BP 161/101; PULSE 85; RESP 18; TEMP 36.3; O2SAT 97
[2019-01-08] MEDS: Normal Saline Flush 10 ML SYR IVP (09:54)
--- NOTE | 2019-01-08 10:02 | NUR.NOTE ---
Nursing Note: Jason reports feeling down today; refusing offers to talk/any assistance with his feelings. He has the shades drawn and lights off, at his request. He has been outside several times and ate breakfast in the cafeteria. He is not making eye contact but is appropriate with conversation. RN will continue to monitor and provide assistance as needed.
[2019-01-08] MEDS: oxyCODONE 10 MG TAB 20 MG PO ×3 (12:56→21:34)
[2019-01-08 15:27] VITALS: BP 145/87; PULSE 79; RESP 19; TEMP 36.9; O2SAT 95
[2019-01-08] MEDS: Lidocaine 5% Patch 2 PATCH TP (19:15)
[2019-01-08] MEDS: DULoxetine 30 MG CAP 60 MG PO (21:34)
[2019-01-09] MEDS: oxyCODONE 10 MG TAB 20 MG PO ×3 (02:06→10:03)
[2019-01-09 03:00] VITALS: BP 146/91; PULSE 62; RESP 17; TEMP 36.4; O2SAT 98
[2019-01-09] MEDS: Acetaminophen 500 MG TAB 1000 MG PO ×3 (03:02→20:01)
[2019-01-09] MEDS: Lactobacillus Acidophilus CAP 1 CAP PO ×3 (07:54→20:01)
[2019-01-09] MEDS: Potassium Chloride 20 MEQ TABCR 40 MEQ PO ×2 (07:54→20:00)
[2019-01-09] MEDS: Docusate Sodium 100 MG CAP PO ×2 (07:54→20:01)
[2019-01-09] MEDS: Pantoprazole 40 MG TABCR PO ×2 (07:55→20:01)
[2019-01-09] MEDS: Lidocaine Patch Removal 2 EACH TD (07:55)
[2019-01-09 08:00] VITALS: BP 154/87; PULSE 72; RESP 18; TEMP 36.2; O2SAT 97
[2019-01-09] MEDS: amLODIPine 10 MG TAB PO (08:01)
[2019-01-09] MEDS: Normal Saline Flush 10 ML SYR IVP (10:04)
[2019-01-09] MEDS: fentaNYL 100 MCG PATCH TD (12:23)
[2019-01-09] MEDS: oxyCODONE 5 MG TAB 15 MG PO ×3 (14:14→22:34)
[2019-01-09 15:17] VITALS: BP 109/69; PULSE 87; RESP 18; TEMP 36.8; O2SAT 94
[2019-01-09] MEDS: Lidocaine 5% Patch 2 PATCH TP (19:58)
[2019-01-09] MEDS: DULoxetine 30 MG CAP 60 MG PO (22:39)
[2019-01-09 23:31] VITALS: BP 133/84; PULSE 73; RESP 16; TEMP 36.2; O2SAT 98
[2019-01-10] MEDS: oxyCODONE 5 MG TAB 15 MG PO ×6 (02:44→21:35)
[2019-01-10] MEDS: Acetaminophen 500 MG TAB 1000 MG PO ×4 (03:54→19:57)
[2019-01-10] MEDS: Normal Saline Flush 10 ML SYR IVP ×3 (05:34→21:36)
[2019-01-10] MEDS: Pantoprazole 40 MG TABCR PO ×2 (07:43→19:58)
[2019-01-10] MEDS: Potassium Chloride 20 MEQ TABCR 40 MEQ PO ×2 (07:43→19:58)
[2019-01-10] MEDS: Docusate Sodium 100 MG CAP PO ×2 (07:43→19:58)
[2019-01-10] MEDS: amLODIPine 10 MG TAB PO (07:43)
[2019-01-10] MEDS: Lidocaine Patch Removal 2 EACH TD (07:44)
[2019-01-10] MEDS: Lactobacillus Acidophilus CAP 1 CAP PO ×3 (07:44→19:58)
--- NOTE | 2019-01-10 07:48 | NUR.NOTE ---
Nursing Note: Pt continues to exhibit signs of depression and admits that he is sad. Again this morning he is somewhat teary, does not make appropriate eye contact, and refuses offers to talk with RN about his concerns/thoughts. Jason continues to complain of 7 or 8/10 pain with very little relief noted from fentanyl and clonodine patches and oxycodone Q4H. He continues to refuse opening of shades and lights remain off in the room. DAYANA Cuello apprised of the situation. RN will continue to monitor.
[2019-01-10 08:07] VITALS: BP 157/92; PULSE 80; RESP 16; TEMP 36.3; O2SAT 97
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
--- NOTE | 2019-01-10 12:49 | W.PM.PROGNOT ---
Date of Service Date of service: 01/10/19 Time of Service: 12:49 Assessment and Plan (1) Gross hematuria: Current visit: No Status: Acute He underwent Cystoscopy with bilateral retrograde pyelograms by Dr. Yañez who notes: no evidence of extravasation from the left ureter. He continues to have some left-sided discomfort. Now off of pyridium, no clear recurrence of hematuria. CT for abscess planned for 01/17 should also let us assess urologic structures. If this does not resolve, will discuss with urology again. (2) Psoas abscess, left: Current visit: No Status: Acute Continue IV Oxacillin for a planned course of 6 weeks, initiated on 12/13/2018, with end date of 01/24. Will need weekly CBC, CMP, ESR, and CRP (ordered for 01/12) with reimaging planned for 01/17. Last labs 01/05 showed improved CRP to 1.35. No leukocytosis. If not resolving, I think he will need another attempt at surgical management. Continue local wound care and pain control. I discussed protein in diet and limiting smoking for wound healing. Actively working on decreasing oxycodone while titrating fentanyl patch for continuous pain control. Increase interval between oxycodone doses to every 6 hours as needed from every 4 hours as needed. Add scheduled Tylenol. Hold ibuprofen in the setting of hematuria. (3) Anxiety: Current visit: No Status: Chronic He is followed by Dr. Gilbert, Psychiatry, who recommended increasing Cymbalta, now on 60mg. I discussed case with Dr. Gilbert and no other changes for now. Continue to monitor. (4) Chronic pain: Current visit: No Status: Chronic In the setting of psoas abscess and with history of opioid used disorder in remission for 6 years. Has been on oxycodone. There is a plan to titrate off oxycodone use while titrating Fentanyl patch dose. See above. 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 (5) Hypertension: Current visit: No Status: Chronic Continue clonidine patch, amlodipine and pain control. BPs have been running high and K+ low so adding lisinopril 10mg today. F/u Cr/K+ on 01/12. (6) Smoker: Current visit: Yes Status: Acute Relapse during this prolonged treament course. Encouraged to limit, he is interested in quitting again. Nicotrol inhaler for now. (7) DVT prophylaxis: Current visit: No Status: Acute Chemical DVT prophylaxis not indicated in a 43 year old patient that ambulates frequently throughout the day. (8) Discharge planning issues: Current visit: No Status: Acute May consider opioid use disorder treatment at time of discharge. States he does not want to be on pain medication at all. Palliative consult placed after discussing case with Dr. Gilbert. This case was discussed with Dr. Connell who is in agreement. Subjective Patient reports: tolerating a regular diet, voiding w/o difficulty and bowel movement; denies diarrhea, nausea, vomiting, shortness of breath and fever Interval history since last seen: events: Seen by Dr. Remy and increased duloxetine Pain medications titrated, fentanyl up to 100mcg/hr and oxycodone down to 15mg q4hr (from 30mg then 20mg) No change in groin wound per nursing, no worse or better S: Feels about the same, still pain in the left groin to the flank, worse with flexion at hip. Hasn't noted significant change. No fever/chills. He is eating, trying to get more protein in the diet. Urine still dark off pyridium but no blood or clots in urine. Walking a lot. Started smoking again due to his frustration, anxiety about his illness. Exam Narrative Exam Narrative: He is sitting up, awake, alert and oriented. In no acute distress, pleasant and cooperative, speech is clear and coherent. No garbled or slurred speech. Pupils are equal and round, mucous membranes moist. Heart is RRR, no murmur Lungs are clear bilaterally, normal effort ABD: soft, +BS, not distended Skin shows 1cm opening in wound in left groin with slight serous discharge. no surrounding redness or purlulence. tender in tissue superior to wound to LLQ. Extremities are without edema. Objective Objective Clinical Data: Vital Signs Temperature 36.3 C L 01/10/19 08:07 Temperature Source Tympanic 01/10/19 08:07 Pulse 80 01/10/19 08:07 Pulse Rhythm Regular 01/10/19 07:38 Respiratory Rate 16 01/10/19 08:07 Respiratory Effort Non-Labored 01/10/19 07:38 Respiratory Depth Normal 01/10/19 07:38 Respiratory Pattern Normal 01/10/19 07:38 Blood Pressure 157/92 H 01/10/19 08:07 Pulse Oximetry 97 01/10/19 08:07 Oxygen Delivery Method Room Air 01/10/19 08:07 Oxygen Flow Rate 0 01/10/19 08:07 Pain Level 8 01/10/19 12:02 Comment 01/07/19 07:10 Intake & Output 01/09/19 01/10/19 01/10/19 23:59 11:59 23:59 Intake Total 630 / 1270 930 / 930 Balance 630 / 1270 930 / 930 Intake: IV 150 / 310 210 / 210 Oral 480 / 960 720 / 720 Other: Urine Color Yellow Urine Appearance Clear Urine Odor Normal Comment Pt voiding independently in toilet. Denies sx. Voiding Methods Toilet Laboratory Results WBC 8.44 k/cumm (4.4-10.8) 01/05/19 10:40 RBC 4.71 m/cumm (4.50-6.00) 01/05/19 10:40 Hgb 12.3 g/dL (13.5-17.5) L 01/05/19 10:40 Hct 38.6 % (40.0-50.0) L 01/05/19 10:40 MCV 82.0 fL (80-95) 01/05/19 10:40 MCH 26.1 pg (27.0-33.0) L 01/05/19 10:40 MCHC 31.9 g/dL (32.0-36.0) L 01/05/19 10:40 RDW 15.8 % (11.8-14.1) H 01/05/19 10:40 Plt Count 257 x1000/uL (130-400) 01/05/19 10:40 MPV 8.8 fL (8.0-11.0) 01/05/19 10:40 Immature Gran % 0.5 01/05/19 10:40 Neutrophils % 52.2 01/05/19 10:40 Lymphocytes % 35.7 01/05/19 10:40 Monocytes % 8.1 01/05/19 10:40 Eosinophils % 3.1 01/05/19 10:40 Basophils % 0.4 01/05/19 10:40 Absolute Neutrophils 4.42 k/cumm (1.2-6.7) 01/05/19 10:40 Absolute Lymphocytes 3.01 k/cumm (1.2-3.4) 01/05/19 10:40 Absolute Monocytes 0.68 k/cumm (0.11-0.7) 01/05/19 10:40 Absolute Eosinophils 0.26 k/cumm (0.0-0.7) 01/05/19 10:40 Absolute Basophils 0.03 k/cumm (0.0-0.2) 01/05/19 10:40 Sodium 140 mmol/L (136-145) 01/05/19 10:40 Potassium 3.3 mmol/L (3.5-5.1) L 01/05/19 10:40 Chloride 102 mmol/L (98-107) 01/05/19 10:40 Carbon Dioxide 31.3 mmol/L (21.0-32.0) 01/05/19 10:40 Anion Gap 6.7 mmol/L (3-11) 01/05/19 10:40 BUN 18 mg/dL (7-18) 01/05/19 10:40 Creatinine 1.15 mg/dL (0.70-1.30) 01/05/19 10:40 Estimated GFR/1.73 m2 >= 60.00 (mL/min/1.73m2) 01/05/19 10:40 Glucose 102 mg/dL (70-100) H 01/05/19 10:40 Calcium 9.4 mg/dL (8.5-10.1) 01/05/19 10:40 Magnesium 2.0 mg/dL (1.8-2.4) 01/05/19 10:40 C-Reactive Protein 1.35 mg/dL (0.0-0.3) H 01/05/19 10:40 Urine Color [place] (Yellow) 01/05/19 15:50 Urine Clarity Clear 01/05/19 15:50 Urine pH 6.5 (5-8) 01/05/19 15:50 Ur Specific [place] 1.020 (1.005-1.025) 01/05/19 15:50 Urine Protein 100 mg/dL (Negative) H 01/05/19 15:50 Urine Ketones Trace mg/dL (Negative) H 01/05/19 15:50 Urine Blood Negative (Negative) 01/05/19 15:50 Urine Nitrite Positive (Negative) H 01/05/19 15:50 Urine Bilirubin Negative (Negative) 01/05/19 15:50 Urine Urobilinogen 1.0 EU/dL (Up TO 0.2) H 01/05/19 15:50 Ur Leukocyte Esterase Negative (Negative) 01/05/19 15:50 Urine RBC Negative (0-2) 01/05/19 15:50 Urine WBC 0-2 HPF (0-5) 01/05/19 15:50 Ur Epithelial Cells Negative HPF (Negative) 01/05/19 15:50 Urine Crystals Negative HPF (Negative) 01/05/19 15:50 Urine Bacteria Moderate HPF (Negative) 01/05/19 15:50 Urine Casts Negative LPF (Negative) 01/05/19 15:50 Urine Mucus Trace (Negative) 01/05/19 15:50 Urine Other Negative (Negative) 01/05/19 15:50 Ur Culture Indicated? No 01/05/19 15:50 Urine Glucose 100 mg/dL (Negative) 01/05/19 15:50 Urine Opiates Screen Positive (Negative) 01/05/19 15:50 Urine Methadone Screen Negative (Negative) 01/05/19 15:50 Ur Barbiturates Screen Negative (Negative) 01/05/19 15:50 Ur Tricyclics Screen Negative (Negative) 01/05/19 15:50 Ur Amphetamines Screen Negative (Negative) 01/05/19 15:50 U Benzodiazepines Scrn Positive (Negative) 01/05/19 15:50 Urine Cocaine Screen Negative (Negative) 01/05/19 15:50 Ur THC Screen Negative (Negative) 01/05/19 15:50
[2019-01-10] MEDS: Lisinopril 10 MG TAB PO (12:55)
[2019-01-10 17:55] VITALS: BP 156/99; PULSE 85; RESP 18; TEMP 37.5; O2SAT 97
[2019-01-10] MEDS: Lidocaine 5% Patch 2 PATCH TP (19:58)
[2019-01-10] MEDS: DULoxetine 30 MG CAP 60 MG PO (21:36)
[2019-01-11] MEDS: oxyCODONE 5 MG TAB 15 MG PO ×3 (01:32→10:05)
[2019-01-11] MEDS: Normal Saline Flush 10 ML SYR IVP ×8 (01:34→21:56)
[2019-01-11] MEDS: Ibuprofen 800 MG TAB PO (02:30)
[2019-01-11 05:27] VITALS: BP 146/86; PULSE 86; RESP 17; TEMP 36.9; O2SAT 96
[2019-01-11 07:17] VITALS: BP 137/87; PULSE 73; RESP 18; TEMP 36.4; O2SAT 100
[2019-01-11] MEDS: Potassium Chloride 20 MEQ TABCR 40 MEQ PO ×2 (08:41→19:47)
[2019-01-11] MEDS: Lactobacillus Acidophilus CAP 1 CAP PO ×3 (08:41→19:47)
[2019-01-11] MEDS: Pantoprazole 40 MG TABCR PO ×2 (08:42→19:47)
[2019-01-11] MEDS: amLODIPine 10 MG TAB PO (08:42)
[2019-01-11] MEDS: Docusate Sodium 100 MG CAP PO ×2 (08:42→19:47)
[2019-01-11] MEDS: Lisinopril 10 MG TAB PO (08:42)
[2019-01-11] MEDS: Lidocaine Patch Removal 2 EACH TD (08:48)
[2019-01-11] MEDS: oxyCODONE 5 MG TAB 10 MG PO ×3 (13:49→21:55)
--- NOTE | 2019-01-11 16:03 | NUR.NOTE ---
Patient asked nursing this afternoon if he could drink (alchohol) on his antibiotics before signing himself out for the afternoon. Staff mentioned that this would not be a good decision. Patient has appeared sad for most of the day, nursing has at various times offered to speak with the patient or make changes to the patient's care to help and the patient has declined. Will continue to monitor. Nursing Note:
[2019-01-11 16:52] VITALS: BP 116/75; PULSE 84; RESP 19; TEMP 36; O2SAT 99
[2019-01-11] MEDS: Acetaminophen 500 MG TAB 1000 MG PO (19:47)
[2019-01-11] MEDS: DULoxetine 30 MG CAP 60 MG PO (21:55)
[2019-01-12] MEDS: oxyCODONE 5 MG TAB 10 MG PO ×3 (02:02→10:21)
[2019-01-12] MEDS: Normal Saline Flush 10 ML SYR IVP ×3 (02:02→21:35)
[2019-01-12 02:03] VITALS: BP 150/92; PULSE 75; RESP 18; TEMP 36.3; O2SAT 97
[2019-01-12 07:02] LABS: HCT 38.3 % (40.0-50.0); HGB 12.2 g/dL (13.5-17.5); Mean Corp. HGB Concentration 31.9 g/dL (32.0-36.0); Mean Corpuscular Volume 81.7 fL (80-95); Mean Platelet Volume 10.1 fL (8.0-11.0); Platelet Count 239 x1000/uL (130-400); RBC 4.69 m/cumm (4.50-6.00); White Blood Cell Count 7.02 k/cumm (4.4-10.8)
[2019-01-12 07:18] LABS: BUN 12 mg/dL (7-18); CREATININE 0.88 mg/dL (0.70-1.30); Calcium 8.9 mg/dL (8.5-10.1); Chloride 103 mmol/L (98-107); Glucose 120 mg/dL (70-100); Magnesium 2.1 mg/dL (1.8-2.4); Sodium 138 mmol/L (136-145)
[2019-01-12 07:27] VITALS: BP 135/92; PULSE 86; RESP 18; TEMP 37; O2SAT 97
[2019-01-12 08:05] LABS: ESR 47 MM/HR (0-15)
[2019-01-12] MEDS: amLODIPine 10 MG TAB PO (08:06)
[2019-01-12] MEDS: Pantoprazole 40 MG TABCR PO ×2 (08:06→19:47)
[2019-01-12] MEDS: Lisinopril 10 MG TAB PO (08:06)
[2019-01-12] MEDS: Docusate Sodium 100 MG CAP PO ×2 (08:06→19:47)
[2019-01-12] MEDS: Lidocaine Patch Removal 2 EACH TD (08:07)
[2019-01-12] MEDS: Lactobacillus Acidophilus CAP 1 CAP PO ×3 (08:07→19:47)
--- NOTE | 2019-01-12 09:12 | W.PSYCHCONSU ---
Date of service: 01/12/19 Time of Service: 09:00 History of Present Illness Narrative: Overnight events: none Medications: patient took only 30mg of duloxetine Subjective: Mood: terrible, I feel sick, I feel like I am withdrawing from opiates Does not plan to go outside for a walk. Feels hopeless about his life. Would rather not wake up in the morning but denies active suicidal ideation. Does not want to talk. Sleep: got a couple hours last night, thinks he might get another couple hours during the day Plans: feels anxious about the idea of going out of state for surgery to drain abscess if that is allowed. States that if palliative came to talk with him today he would not be in a good frame of mind to make decisions or think about his future care goals as he feels hopeless and sick. Per care team: he is seeming more depression and withdrawn, he is complaining of more pain and now with numbness in his leg. REVIEW OF SYSTEMS: Constitutional: +pain and fatigue, I feel sick Musculoskeletal/neuro: +sweating and rhinorrhea from withdrawal Psych: see above Physical exam: - skin dry to touch on neck and chest - no sniffing or blowing of nose during interview MENTAL STATUS EXAM: Constitutional: lying in dark room with sheet wrapped around and over his head, slow to respond to me, but clearly awake and alert. Attitude: cooperative and polite but engaging minimally Psychomotor: slowed Speech: non-pressured, quiet volume and prosody. No articulation problems noted. Associations: no looseness Thought process: linear, logical, goal directed Thought content without psychosis, delusions, obsessions No active suicidal or homicidal ideations, but endorses passive suicidal thoughts. Hallucinations denied Mood: terrible Affect: sad, withdrawn Attention/Concentration: grossly intact Judgment/insight: fair/fair Oriented x 4 Language appropriate to age and education Fund of knowledge appropriate to age and education Memory intact to recent and remote events Other cognitive testing: none Assessment and Plan (1) Major depressive episode: Current visit: No Status: Acute Jason Cuevas is a 43 year old male admitted for pain control and IV antibiotic for psoas muscle abscess. History and clinical exam is consistent with major depressive episode who initially responded well to increase of duloxetine to 60mg daily but with increasing fatigue cut his dose in half last night. Concurrently, his pain medications have been cross tapering from oral oxycodone to phentanyl patch and he believes he is withdrawing and his pain is not well controlled. He is accepting of the plan for decreasing his opiates medications and that withdrawal symptoms may be part of that plan, however, his mood and function are significantly impacted. Of note, he does not objectively have signs of opiate withdrawal, and at the same time there is no indication that he is asking for more medications. I wonder if he is feeling systemically sick for other reasons and interpreting this as opiate withdrawal. Regarding his self-taper of duloxetine, I am in agreement with his adjusting his medication to see if that is contributing to fatigue however, I think more likely that fatigue is related to other health factors. once those have resolved, I recommend duloxetine be increased back to 60mg. His reported reduction of duloxetine to 30mg is not reported in the MAR which reports that he was given 60mg. Safety: His passive suicidal ideation seems to be situationally driven and continued support of health and pain management will help. Risk for harm to self or others while admitted here at [facility] is low and there is no indication to restrict his privileges or increase supervision. I will continue to follow Jason while he is admitted here at [facility]. REPLACED BY [facility] Social History Smoking/Tobacco Use Status: Current every day Tobacco Type: cigarettes Alcohol Intake: never Drug use: Never Substance use type: does not use and former substance user Details: Hx drug abuse Do you feel safe at home: Yes Do you feel safe in your relationship?: Yes Results Last Vital Signs Temp 37.0 C 01/12/19 07:27 Pulse 86 01/12/19 07:27 Resp 18 01/12/19 07:27 BP 135/92 H 01/12/19 07:27 Pulse Ox 97 01/12/19 07:27 Labs : 01/12/19 06:40 01/12/19 06:40 Laboratory Results - last 24 hr 01/12/19 01/12/19 06:40 06:40 WBC 7.02 RBC 4.69 Hgb 12.2 L Hct 38.3 L MCV 81.7 MCH 26.0 L MCHC 31.9 L RDW 16.0 H Plt Count 239 MPV 10.1 ESR 47 H Sodium 138 Potassium 4.0 Chloride 103 Carbon Dioxide 26.0 Anion Gap 9.0 BUN 12 Creatinine 0.88 Estimated GFR/1.73 m2 >= 60.00 Glucose 120 H Calcium 8.9 Magnesium 2.1 C-Reactive Protein 2.30 H
--- NOTE | 2019-01-12 09:16 | PSYCO_ITS ---
Date of service: 01/12/19 Time of Service: 09:00 History of Present Illness Narrative: Overnight events: none Medications: patient took only 30mg of duloxetine Subjective: Mood: terrible, I feel sick, I feel like I am withdrawing from opiates Does not plan to go outside for a walk. Feels hopeless about his life. Would rather not wake up in the morning but denies active suicidal ideation. Does not want to talk. Sleep: got a couple hours last night, thinks he might get another couple hours during the day Plans: feels anxious about the idea of going out of state for surgery to drain abscess if that is allowed. States that if palliative came to talk with him today he would not be in a good frame of mind to make decisions or think about his future care goals as he feels hopeless and sick. Per care team: he is seeming more depression and withdrawn, he is complaining of more pain and now with numbness in his leg. REVIEW OF SYSTEMS: Constitutional: +pain and fatigue, I feel sick Musculoskeletal/neuro: +sweating and rhinorrhea from withdrawal Psych: see above Physical exam: - skin dry to touch on neck and chest - no sniffing or blowing of nose during interview MENTAL STATUS EXAM: Constitutional: lying in dark room with sheet wrapped around and over his head, slow to respond to me, but clearly awake and alert. Attitude: cooperative and polite but engaging minimally Psychomotor: slowed Speech: non-pressured, quiet volume and prosody. No articulation problems noted. Associations: no looseness Thought process: linear, logical, goal directed Thought content without psychosis, delusions, obsessions No active suicidal or homicidal ideations, but endorses passive suicidal thoughts. Hallucinations denied Mood: terrible Affect: sad, withdrawn Attention/Concentration: grossly intact Judgment/insight: fair/fair Oriented x 4 Language appropriate to age and education Fund of knowledge appropriate to age and education Memory intact to recent and remote events Other cognitive testing: none Assessment and Plan (1) Major depressive episode: Current visit: No Status: Acute Jason Cuevas is a 43 year old male admitted for pain control and IV antibiotic for psoas muscle abscess. History and clinical exam is consistent with major depressive episode who initially responded well to increase of dulo xetine to 60mg daily but with increasing fatigue cut his dose in half last night. Concurrently, his pain medications have been cross tapering from oral oxycodone to phentanyl patch and he believes he is withdrawing and his pain is not well controlled. He is accepting of the plan for decreasing his opiates medications and that withdrawal symptoms may be part of that plan, however, his mood and function are significantly impacted. Of note, he does not objectively have signs of opiate withdrawal, and at the same time there is no indication that he is asking for more medications. I wonder if he is feeling systemically sick for other reasons and interpreting this as opiate withdrawal. Regarding his self-taper of duloxetine, I am in agreement with his adjusting his medication to see if that is contributing to fatigue however, I think more likely that fatigue is related to other health factors. once those have resolved, I recommend duloxetine be increased back to 60mg. His reported reduct ion of duloxetine to 30mg is not reported in the MAR which reports that he was given 60mg. Safety: His passive suicidal ideation seems to be situationally driven and continued support of health and pain management will help. Risk for harm to self or others while admitted here at [facility] is low and there is no indication to restrict his privileges or increase supervision. I will continue to follow Jason while he is admitted here at [facility]. [facility] Social History Smoking/Tobacco Use Status: Current every day Tobacco Type: cigarettes Alcohol Intake: never Drug use: Never Substance use type: does not use and former substance user Details: Hx drug abuse Do you feel safe at home: Yes Do you feel safe in your relationship?: Yes Results Last Vital Signs Temp 37.0 C 01/12/19 07:27 Pulse 86 01/12/19 07:27 Resp 18 01/12/19 07:27 BP 135/92 H 01/12/19 07:27 Pulse Ox 97 01/12/19 07:27 Labs : 01/12/19 06:40 01/12/19 06:40 Laboratory Results - last 24 hr 01/12/19 01/12/19 06:40 06:40 WBC 7.02 RBC 4.69 Hgb 12.2 L Hct 38.3 L MCV 81.7 MCH 26.0 L MCHC 31.9 L RDW 16.0 H Plt Count 239 MPV 10.1 ESR 47 H Sodium 138 Potassium 4.0 Chloride 103 Carbon Dioxide 26.0 Anion Gap 9.0 BUN 12 Creatinine 0.88 Estimated GFR/1.73 m2 >= 60.00 Glucose 120 H Calcium 8.9 Magnesium 2.1 C-Reactive Protein 2.30 H
[2019-01-12] MEDS: oxyCODONE 15 MG TAB 30 MG PO ×3 (14:12→21:35)
[2019-01-12 15:11] VITALS: RESP 16
--- NOTE | 2019-01-12 15:16 | PDOC.CMPRO ---
- If Service Date Differs Date of service: 01/12/19 Time of Service: 15:16 Care Management Progress Note S/O: CM met with patient today nursing has raised concerns that Jason is not wanting to accept fentanyl patch or participate with resources due to change in mood. Jason describes feelings of frustration related to recent pain medications changes. He feels that he is having increase pain on the patch and symptoms of withdrawal which he describes as runny nose, frequent bowel movements, sweating. Jason continues to struggle with his psychosocial relationships. He has refused to see his friend Abhi today, and during CM visit he was putting money in an envelope for his brother. Jason declined meeting with [employer] today. Jason was able to meet with several times throughout the day to discuss the plan. Jason admitted to having ibuprofen and Tylenol in his room he states that is the one thing he can control. Jason did agree to give up the Tylenol, and showed an empty bottle of ibuprofen. Jason has been referred to [facility] and they will work with him toward resources once he is willing to meet with him. A:Jason is a 43 year old male with a Psoas abscess on IV antibiotics x 6 weeks, anticipate completion date 01/24/19, P: Plan today Jason remains SB1 status. His pain regimen is being adjusted to oral mediations and discontenting duragesic patch. Jason continues to receive IV antibiotics end date is 01/24/19. He will need to have repeat imaging of his left hip presume this will be CT scan around the . If the infection has not improved he will need to follow up at a Tertiary center for management of abscess and wound. CM contacted [facility] to meet with Jason while he is inpatient to assist with housing and support services in the community.
[2019-01-12 15:30] VITALS: BP 165/94; PULSE 94; RESP 19; TEMP 36.7; O2SAT 96
--- NOTE | 2019-01-12 15:30 | CMPROGNOTE_ITS ---
- If Service Date Differs Date of service: 01/12/19 Time of Service: 15:16 Care Management Progress Note S/O: CM met with patient today nursing has raised concerns that Jason is not wanting to accept fentanyl patch or participate with resources due to change in mood. Jason describes feelings of frustration related to recent pain medications changes. He feels that he is having increase pain on the patch and symptoms of withdrawal which he describes as runny nose, frequent bowel movements, sweating. Jason continues to struggle with his psychosocial relationships. He has refused to see his friend Abhi today, and during CM visit he was putting money in an envelope for his brother. Jason declined meeting with [employer] today. Jason was able to meet with several times throughout the day to discuss the plan. Jason admitted to having ibuprofen and Tylenol in his room he states that is the one thing he can control. Jason did agree to give up the Tylenol, and showed an empty bottle of ibuprofen. Jason has been referred to [facility] and they will work with him toward resources once he is willing to meet with him. A:Jason is a 43 year old male with a Psoas abscess on IV antibiotics x 6 weeks, anticipate completion date 01/24/19, P: Plan today Jason remains SB1 status. His pain regimen is being adjusted to oral mediations and discontenting duragesic patch. Jason continues to receive IV antibiotics end date is 01/24/19. He will need to have repeat imaging of his left hip presume this will be CT scan around the . If the infection has not improved he will need to follow up at a Tertiary center for management of abscess and wound. CM contacted [employer] to meet with Jason while he is inpatient to assist with housing and support services in the community.
[2019-01-12] MEDS: Potassium Chloride 20 MEQ TABCR 40 MEQ PO (19:47)
[2019-01-12] MEDS: Acetaminophen 500 MG TAB 1000 MG PO (19:48)
[2019-01-12] MEDS: DULoxetine 30 MG CAP 60 MG PO (21:35)
[2019-01-13] MEDS: Normal Saline Flush 10 ML SYR IVP ×3 (01:05→21:56)
[2019-01-13 01:13] VITALS: BP 132/74; PULSE 88; RESP 20; TEMP 37; O2SAT 97
[2019-01-13] MEDS: oxyCODONE 15 MG TAB 30 MG PO ×6 (02:10→21:57)
[2019-01-13] MEDS: Acetaminophen 500 MG TAB 1000 MG PO ×3 (03:45→20:01)
[2019-01-13 07:16] VITALS: RESP 16
[2019-01-13 08:15] VITALS: BP 133/89; PULSE 110; RESP 20; TEMP 36; O2SAT 96
--- NOTE | 2019-01-13 08:43 | NUR.NOTE ---
01/13 Pt c/o increased left groin drainage (bloody) and sweating/shaky, blood sugar and VSS. telephoner Georgie aware to let Dr. Gil know.
[2019-01-13] MEDS: Lactobacillus Acidophilus CAP 1 CAP PO ×3 (08:49→20:01)
[2019-01-13] MEDS: Docusate Sodium 100 MG CAP PO ×2 (08:49→20:01)
[2019-01-13] MEDS: amLODIPine 10 MG TAB PO (08:49)
[2019-01-13] MEDS: Pantoprazole 40 MG TABCR PO ×2 (08:49→20:01)
[2019-01-13] MEDS: Lisinopril 10 MG TAB PO (08:51)
[2019-01-13] MEDS: Potassium Chloride 20 MEQ TABCR 40 MEQ PO (08:54)
[2019-01-13 11:06] VITALS: RESP 16
--- NOTE | 2019-01-13 11:07 | W.PSYCHCONSU ---
Date of service: 01/13/19 Time of Service: 11:00 History of Present Illness Narrative: Overnight events: had drainage from thigh wound that needed dressing changes a couple times last night Medications: took the full 60mg duloxetine last night Subjective: I'm feeling better today. when you see the shades up and the lights on you know Im feeling better. Pain: much less baseline pain since change back to oxycodone. Anxiety: had episode of heightened anxiety when talking about moving to [place] and going to football games. held his stomach, breathed deeply, and self-soothed. Wow, that made me anxious. Suicidal thoughts: at times feels like taking his life but states that he absolutely wouldn't do it while in the hospital. he does look up on google methods of suicide including duct-taping himself into a [id number] and mixing bleach and ammonia. He states that suicide hotline pops up on his phone when he searches these sites. he has never used the hotline before. States that he thinks he will probably take his life at some point after discharge from the hospital. Endorses that when he thinks more about the future he thinks about suicide, but when he thinks about today, he doesn't feel like suiciding. I don't know why these thoughts go through my head. He agrees that maybe they give him a sense of control over his zen. We discussed how much he has control even while he is here in the hospital. He does feel that he has had unusually bad luck. Now he expresses paranoid ideations like some nurses don't like him, have been giving him the finger behind his back, they could be poisoning him via his medications or his food which is why he gets all his food himself from the cafeteria and gets his own drinks from the kitchen. I think I'm crazy for having these thoughts, but they could be happening. I just think too many things have happened since I've been here, like Ami leaving as soon as I came back to the hospital. We discussed coincidence vs causal events and how they can be confused. We discussed that staff here are interested in helping people get better, and he can talk back to his thoughts seeking hard evidence for his paranoid ideations before agreeing with them. REVIEW OF SYSTEMS: Constitutional: +improved baseline pain, +feels unwell given leg pain and drainage. Musculoskeletal/neuro: able to walk which helps prevent stiffness even though worsening pain temporarily Psych: see above MENTAL STATUS EXAM: Constitutional: sitting up in chair, shade open lights on, watching cat videos on phone Attitude: cooperative Psychomotor: no retardation or agitation Speech: non-pressured, normal volume and prosody. No articulation problems noted. Associations: no looseness Thought process: linear, goal directed, at time illogical in areas of paranoia but still with some perspective Thought content without psychosis or delusions, but with paranoid ideations No active suicidal or homicidal ideations, but passive thoughts for suicide in the future. Hallucinations denied Mood: much better Affect: full, anxious at times, Attention/Concentration: intact Judgment/insight: poor/poor Oriented x 4 Language appropriate to age and education Fund of knowledge appropriate to age and education Memory intact to recent and remote events Other cognitive testing: none Assessment and Plan (1) Major depressive episode: Current visit: No Status: Acute Jason Cuevas is a 43 year old male admitted for pain control and IV antibiotic for psoas muscle abscess. History and clinical exam is consistent with major depressive episode and he has responded well to increase of duloxetine to 60mg daily. Anxiety and paranoid thoughts seem to be related to difficulty sorting out causal from correlation, and possibly some hospital PTSD but this need further evaluation. Regarding his suicidal ideations that are not around imminent plans to harm himself but rather seem to give him a sense of control over his fate which to him has seemed unfavorable over this past year. We discussed his trying out the suicide hotline by text even while he is here in the hospital so that he becomes familiar with it as a resource outside the hospital. I discussd with him the impact of head injury on impulsivity and good judgment and decision making and that he would be well-served to have more protections in place upon discharge. Recommendations: - continue duloxetine 60mg daily - continue clonidine 0.1/24hr transdermal as it appears to help with emotional impulsivity Safety: no increased restrictions on privileges indicated while he is here in the hospital, but close monitoring of suicidal thoughts and paranoid ideations by a few staff that he trusts will help monitor for any changes. [facility] Social History Smoking/Tobacco Use Status: Current every day Tobacco Type: cigarettes Alcohol Intake: never Drug use: Never Substance use type: does not use and former substance user Details: Hx drug abuse Do you feel safe at home: Yes Do you feel safe in your relationship?: Yes Results Last Vital Signs Temp 36 C L 01/13/19 08:15 Pulse 110 H 01/13/19 08:15 Resp 20 01/13/19 08:15 BP 133/89 01/13/19 08:15 Pulse Ox 96 01/13/19 08:15 Labs : 01/12/19 06:40 01/12/19 06:40 Laboratory Results - last 24 hr 01/12/19 06:30 25-OH Vitamin D Total 11.0 L
--- NOTE | 2019-01-13 13:12 | W.PM.PROGNOT ---
Date of Service Date of service: 01/13/19 Time of Service: 11:00 Assessment and Plan (1) Chronic pain: Current visit: No Status: Chronic Pain control, and mood, doing a bit better since fentanyl discontinued and he was placed back on his previous dose of oxycodone 30 mg 4 times daily as needed, generally getting 6 doses per day which, even at this level, is a lower morphine equivalent than when he was getting lower dose oxycodone plus topical fentanyl. I am not planning any changes to the present regimen but over time perhaps the dose of oxycodone can be ratcheted down. (2) Anxiety: Current visit: No Status: Chronic Better today since change in his pain management. Input from Dr. Gilbert appreciated. No change in clonidine or duloxetine dose is planned. (3) Psoas abscess, left: Current visit: No Status: Acute Inflammatory markers fluctuate up and down, discouraging that there has not been a consistent trend of improvement. Still having some drainage from the left thigh wound and its unclear if this is in anyway related to the psoas abscess?recent CTs do not show any obvious communication. Reviewed his CT scans with Dr. Roque, and given the slow rate of change recommendation is to hold off on doing another scan now, defer until next week as previously planned. He continues on oxacillin for his MSSA psoas abscess. (4) Hypertension: Current visit: No Status: Chronic Blood pressure is doing a little better with the recent increase in lisinopril to 10 mg daily. Continue to monitor on current combination of amlodipine and lisinopril (on topical clonidine more for mood regulation then for blood pressure but it also helps). (5) Vitamin D deficiency: Current visit: Yes Status: Acute Due to his limited sun exposure we check a vitamin D level yesterday and it returned low. I will put him on a supplement. Subjective Interval history since last seen: Mr. Cuevas is feeling better, less anxious, more positive outlook and he did yesterday when I saw him. He was concerned that fentanyl was not working and he was having withdrawal symptoms, poor pain control, generally feeling quite discouraged. Fentanyl was discontinued yesterday and he was placed back on oxycodone 30 mg every 4 hours as needed. He thinks this has made a substantial improvement in his overall sense of well-being and pain control. He is anxious as to whether or not the abscess has responded to current treatment and is pushing to have CT scan done sooner rather than later. However he is not anxious to have any invasive procedures. He continues to have some drainage on the dressing over the left proximal thigh where there is still an open area from his past surgery. No gross purulent material has been forthcoming from this but it is sometimes bloody. He is up ambulating, with a cane, does not seem to have any increased discomfort when he does so. Lab work from yesterday showed a slight drop in his sed rate but an increase in his CRP. White count remains normal. Vitamin D level low at 11, normal TSH. Exam Narrative Exam Narrative: Up ambulating in the wood after a recent shower. He seems in good spirits overall. Blood pressures now have readings in the 130 systolic although still some readings as high as 165 systolic. Abdomen obese with active bowel sounds. He has a 1 cm open area with no obvious fistula tract or sinus in the left anterior thigh with a small dot of blood on the Mepilex dressing overlying it. There is no induration around this or erythema. Very light palpation anywhere around his incision, groin or lower abdomen produces pain complaints. Exam is difficult to interpret because of the allodynia. Complains of discomfort in the groin area with passive range of motion of the left hip, but I do not get a sense that he has an acutely irritable hip based on exam. He is independent with transfers and ambulating. Objective Objective Clinical Data: Abnormal lab results 01/12/19 Range/Units 06:30 25-OH Vitamin D Total 11.0 L (30-100) ng/ml Vital Signs Temperature 36 C L 01/13/19 08:15 Temperature Source Tympanic 01/13/19 08:15 Pulse 110 H 01/13/19 08:15 Pulse Rhythm Regular 01/13/19 08:24 Respiratory Rate 16 01/13/19 11:06 Respiratory Effort Non-Labored 01/13/19 08:24 Respiratory Depth Normal 01/13/19 08:24 Respiratory Pattern Normal 01/13/19 08:24 Blood Pressure 133/89 01/13/19 08:15 Pulse Oximetry 96 01/13/19 08:15 Oxygen Delivery Method Room Air 01/13/19 08:15 Oxygen Flow Rate 0 01/13/19 08:15 Pain Level 5 01/13/19 11:06 Comment 01/11/19 16:52 Intake & Output 01/12/19 01/13/19 01/13/19 23:59 11:59 23:59 Intake Total 1220 / 1760 110 / 160 50 / 160 Balance 1220 / 1760 110 / 160 50 / 160 Intake: IV 200 / 340 110 / 160 50 / 160 Oral 1020 / 1420 Other: Urine Color Pale Yellow Urine Appearance Clear Clear Urine Odor None Voiding Methods Toilet Laboratory Results WBC 7.02 k/cumm (4.4-10.8) 01/12/19 06:40 RBC 4.69 m/cumm (4.50-6.00) 01/12/19 06:40 Hgb 12.2 g/dL (13.5-17.5) L 01/12/19 06:40 Hct 38.3 % (40.0-50.0) L 01/12/19 06:40 MCV 81.7 fL (80-95) 01/12/19 06:40 MCH 26.0 pg (27.0-33.0) L 01/12/19 06:40 MCHC 31.9 g/dL (32.0-36.0) L 01/12/19 06:40 RDW 16.0 % (11.8-14.1) H 01/12/19 06:40 Plt Count 239 x1000/uL (130-400) 01/12/19 06:40 MPV 10.1 fL (8.0-11.0) 01/12/19 06:40 Immature Gran % 0.5 01/05/19 10:40 Neutrophils % 52.2 01/05/19 10:40 Lymphocytes % 35.7 01/05/19 10:40 Monocytes % 8.1 01/05/19 10:40 Eosinophils % 3.1 01/05/19 10:40 Basophils % 0.4 01/05/19 10:40 Absolute Neutrophils 4.42 k/cumm (1.2-6.7) 01/05/19 10:40 Absolute Lymphocytes 3.01 k/cumm (1.2-3.4) 01/05/19 10:40 Absolute Monocytes 0.68 k/cumm (0.11-0.7) 01/05/19 10:40 Absolute Eosinophils 0.26 k/cumm (0.0-0.7) 01/05/19 10:40 Absolute Basophils 0.03 k/cumm (0.0-0.2) 01/05/19 10:40 ESR 47 MM/HR (0-15) H 01/12/19 06:40 Sodium 138 mmol/L (136-145) 01/12/19 06:40 Potassium 4.0 mmol/L (3.5-5.1) 01/12/19 06:40 Chloride 103 mmol/L (98-107) 01/12/19 06:40 Carbon Dioxide 26.0 mmol/L (21.0-32.0) 01/12/19 06:40 Anion Gap 9.0 mmol/L (3-11) 01/12/19 06:40 BUN 12 mg/dL (7-18) 01/12/19 06:40 Creatinine 0.88 mg/dL (0.70-1.30) 01/12/19 06:40 Estimated GFR/1.73 m2 >= 60.00 (mL/min/1.73m2) 01/12/19 06:40 Glucose 120 mg/dL (70-100) H 01/12/19 06:40 Calcium 8.9 mg/dL (8.5-10.1) 01/12/19 06:40 Magnesium 2.1 mg/dL (1.8-2.4) 01/12/19 06:40 C-Reactive Protein 2.30 mg/dL (0.0-0.3) H 01/12/19 06:40 25-OH Vitamin D Total 11.0 ng/ml (30-100) L 01/12/19 06:30 TSH 1.30 uIU/mL (0.358-3.74) 01/12/19 06:30 Urine Color [place] (Yellow) 01/05/19 15:50 Urine Clarity Clear 01/05/19 15:50 Urine pH 6.5 (5-8) 01/05/19 15:50 Ur Specific [place] 1.020 (1.005-1.025) 01/05/19 15:50 Urine Protein 100 mg/dL (Negative) H 01/05/19 15:50 Urine Ketones Trace mg/dL (Negative) H 01/05/19 15:50 Urine Blood Negative (Negative) 01/05/19 15:50 Urine Nitrite Positive (Negative) H 01/05/19 15:50 Urine Bilirubin Negative (Negative) 01/05/19 15:50 Urine Urobilinogen 1.0 EU/dL (Up TO 0.2) H 01/05/19 15:50 Ur Leukocyte Esterase Negative (Negative) 01/05/19 15:50 Urine RBC Negative (0-2) 01/05/19 15:50 Urine WBC 0-2 HPF (0-5) 01/05/19 15:50 Ur Epithelial Cells Negative HPF (Negative) 01/05/19 15:50 Urine Crystals Negative HPF (Negative) 01/05/19 15:50 Urine Bacteria Moderate HPF (Negative) 01/05/19 15:50 Urine Casts Negative LPF (Negative) 01/05/19 15:50 Urine Mucus Trace (Negative) 01/05/19 15:50 Urine Other Negative (Negative) 01/05/19 15:50 Ur Culture Indicated? No 01/05/19 15:50 Urine Glucose 100 mg/dL (Negative) 01/05/19 15:50 Urine Opiates Screen Positive (Negative) 01/05/19 15:50 Urine Methadone Screen Negative (Negative) 01/05/19 15:50 Ur Barbiturates Screen Negative (Negative) 01/05/19 15:50 Ur Tricyclics Screen Negative (Negative) 01/05/19 15:50 Ur Amphetamines Screen Negative (Negative) 01/05/19 15:50 U Benzodiazepines Scrn Positive (Negative) 01/05/19 15:50 Urine Cocaine Screen Negative (Negative) 01/05/19 15:50 Ur THC Screen Negative (Negative) 01/05/19 15:50
[2019-01-13 15:14] VITALS: RESP 16
[2019-01-13] MEDS: Lidocaine 5% Patch 2 PATCH TP (20:07)
[2019-01-13 20:13] VITALS: BP 133/87; PULSE 84; RESP 18; TEMP 36.5; O2SAT 92
[2019-01-13] MEDS: DULoxetine 30 MG CAP 60 MG PO (21:50)
[2019-01-14] MEDS: oxyCODONE 15 MG TAB 30 MG PO ×6 (01:59→23:31)
[2019-01-14] MEDS: Normal Saline Flush 10 ML SYR IVP ×7 (02:00→22:06)
[2019-01-14] MEDS: Lisinopril 10 MG TAB PO (08:15)
[2019-01-14] MEDS: amLODIPine 10 MG TAB PO (08:15)
[2019-01-14] MEDS: Lactobacillus Acidophilus CAP 1 CAP PO ×3 (08:16→20:43)
[2019-01-14] MEDS: cloNIDine 0.1 MG PATCH TD (08:16)
[2019-01-14] MEDS: Cholecalciferol (Vitamin D3) 1,000 UNIT TAB 1000 UNITS PO (08:16)
[2019-01-14] MEDS: Pantoprazole 40 MG TABCR PO ×2 (08:16→20:43)
[2019-01-14] MEDS: Docusate Sodium 100 MG CAP PO ×2 (08:16→20:43)
[2019-01-14] MEDS: Lidocaine Patch Removal 2 EACH TD (08:20)
[2019-01-14 08:45] VITALS: BP 146/67; PULSE 79; RESP 19; TEMP 36.7; O2SAT 98
--- NOTE | 2019-01-14 13:29 | CMACTNOTE_ITS ---
- If Service Date Differs Date of service: 01/14/19 Time of Service: 13:28 Care Management Activity Note Jason's mood has improved since the pain management change he states he is no longer feeling sleepy and feels that his pain is better controlled. He is enjoying the [employer] puzzles and feels comfortable asking for a new book when he needs one. Jason enjoys walking outside, his friend Abhi has been in everyday to walk around with him and visit. Jason has a palliative consult on 01/21/19 at 0800 with . He also is now requesting to meet with amanda which CM will arrange. Jason has been offered activity cart, reiki and music therapy. He has a TV in the room and phone. A:Jason is a 43 year old male with a Psoas abscess on IV antibiotics x 6 weeks, anticipate completion date 01/24/19, P: Jason remains SB1 status. Jason continues to receive IV antibiotics end date is 01/24/19. He will need to have repeat imaging of his left hip presume this will be CT scan around the . If the infection has not improved he will need to follow up at a Tertiary center for management of abscess and wound. CM contacted [facility] to meet with Jason while he is inpatient to assist with housing and support services in the community.
[2019-01-14] MEDS: Lidocaine 5% Patch 1 PATCH TP (13:33)
[2019-01-14] MEDS: Acetaminophen 500 MG TAB 1000 MG PO ×2 (13:36→20:42)
[2019-01-14 19:53] VITALS: BP 131/71; PULSE 88; RESP 16; TEMP 36.6; O2SAT 97
[2019-01-14] MEDS: DULoxetine 30 MG CAP 60 MG PO (20:43)
[2019-01-14] MEDS: Lidocaine 5% Patch 2 PATCH TP (20:45)
[2019-01-14 23:20] VITALS: BP 154/71; PULSE 83; RESP 18; TEMP 36.7; O2SAT 98
[2019-01-15] MEDS: Normal Saline Flush 10 ML SYR IVP ×5 (02:09→22:11)
[2019-01-15] MEDS: Acetaminophen 500 MG TAB 1000 MG PO ×3 (03:54→19:46)
[2019-01-15] MEDS: oxyCODONE 15 MG TAB 30 MG PO ×5 (03:54→22:10)
[2019-01-15 07:05] VITALS: BP 146/89; PULSE 80; RESP 18; TEMP 36.2; O2SAT 98
[2019-01-15] MEDS: Pantoprazole 40 MG TABCR PO ×2 (08:23→19:46)
[2019-01-15] MEDS: Lidocaine Patch Removal 2 EACH TD (08:28)
[2019-01-15] MEDS: amLODIPine 10 MG TAB PO (09:22)
[2019-01-15] MEDS: Docusate Sodium 100 MG CAP PO ×2 (09:22→19:46)
[2019-01-15] MEDS: Cholecalciferol (Vitamin D3) 1,000 UNIT TAB 1000 UNITS PO (09:23)
[2019-01-15] MEDS: Lisinopril 10 MG TAB PO (09:23)
[2019-01-15] MEDS: Lactobacillus Acidophilus CAP 1 CAP PO ×3 (09:23→19:46)
[2019-01-15 15:33] VITALS: BP 109/69; PULSE 80; RESP 17; TEMP 36.5; O2SAT 97
[2019-01-15] MEDS: Lidocaine 5% Patch 2 PATCH TP (19:47)
[2019-01-15] MEDS: Ibuprofen 800 MG TAB PO (22:10)
[2019-01-15] MEDS: DULoxetine 30 MG CAP 60 MG PO (22:10)
[2019-01-15 23:44] VITALS: BP 130/86; PULSE 84; RESP 18; TEMP 36.7; O2SAT 97
[2019-01-16] MEDS: oxyCODONE 15 MG TAB 30 MG PO ×6 (02:17→22:31)
[2019-01-16] MEDS: Acetaminophen 500 MG TAB 1000 MG PO ×3 (03:20→20:41)
[2019-01-16] MEDS: Normal Saline Flush 10 ML SYR IVP ×5 (06:24→22:32)
[2019-01-16 07:57] VITALS: BP 170/97; PULSE 81; RESP 17; TEMP 36.7; O2SAT 98
[2019-01-16] MEDS: Pantoprazole 40 MG TABCR PO ×2 (08:04→20:41)
[2019-01-16] MEDS: Lidocaine Patch Removal 2 EACH TD (08:04)
[2019-01-16] MEDS: Lisinopril 10 MG TAB PO (08:52)
[2019-01-16] MEDS: amLODIPine 10 MG TAB PO (08:52)
[2019-01-16] MEDS: Lactobacillus Acidophilus CAP 1 CAP PO ×3 (08:52→20:41)
[2019-01-16] MEDS: Docusate Sodium 100 MG CAP PO ×2 (08:52→20:41)
[2019-01-16] MEDS: Cholecalciferol (Vitamin D3) 1,000 UNIT TAB 1000 UNITS PO (08:52)
[2019-01-16] MEDS: Ibuprofen 800 MG TAB PO ×2 (10:31→23:39)
[2019-01-16 15:40] VITALS: BP 117/74; PULSE 78; RESP 18; TEMP 36.7; O2SAT 96
[2019-01-16] MEDS: Lidocaine 5% Patch 2 PATCH TP (20:40)
[2019-01-16] MEDS: DULoxetine 30 MG CAP 60 MG PO (22:31)
[2019-01-16 23:28] VITALS: BP 127/83; PULSE 80; RESP 18; TEMP 36.1; O2SAT 98
[2019-01-17] MEDS: oxyCODONE 15 MG TAB 30 MG PO ×6 (02:40→22:47)
[2019-01-17] MEDS: Acetaminophen 500 MG TAB 1000 MG PO ×3 (03:44→19:39)
[2019-01-17] MEDS: Normal Saline Flush 10 ML SYR IVP ×4 (05:43→22:47)
[2019-01-17 07:18] LABS: HGB 11.4 g/dL (13.5-17.5); Mean Corp. HGB Concentration 31.7 g/dL (32.0-36.0); Mean Corpuscular Hemoglobin 25.9 pg (27.0-33.0); Mean Corpuscular Volume 81.8 fL (80-95); Mean Platelet Volume 9.2 fL (8.0-11.0); Platelet Count 218 x1000/uL (130-400); RBC Distribution Width 15.8 % (11.8-14.1); White Blood Cell Count 5.06 k/cumm (4.4-10.8)
[2019-01-17 07:56] LABS: ALT 25 U/L (12-78); AST 17 U/L (15-37); Albumin 3.1 g/dL (3.4-5.0); Alkaline Phosphatase 124 U/L (46-116); Anion Gap 9.8 mmol/L (3-11); BUN 16 mg/dL (7-18); Bilirubin, Total 0.3 mg/dL (0.2-1.0); C-Reactive Protein 1.66 mg/dL (0.0-0.3); CO2 27.2 mmol/L (21.0-32.0); CREATININE 1.02 mg/dL (0.70-1.30); Calcium 8.7 mg/dL (8.5-10.1); Chloride 104 mmol/L (98-107); Glucose 124 mg/dL (70-100); Potassium 3.8 mmol/L (3.5-5.1); Sodium 141 mmol/L (136-145); Total Protein 7.1 g/dL (6.4-8.2)
[2019-01-17 08:00] VITALS: BP 127/84; PULSE 74; RESP 18; TEMP 36.6; O2SAT 96
[2019-01-17] MEDS: Lidocaine Patch Removal 2 EACH TD (08:15)
[2019-01-17] MEDS: Lactobacillus Acidophilus CAP 1 CAP PO ×3 (08:15→19:40)
[2019-01-17] MEDS: Lisinopril 10 MG TAB PO (08:15)
[2019-01-17] MEDS: Cholecalciferol (Vitamin D3) 1,000 UNIT TAB 1000 UNITS PO (08:15)
[2019-01-17] MEDS: Pantoprazole 40 MG TABCR PO ×2 (08:15→19:39)
[2019-01-17] MEDS: Docusate Sodium 100 MG CAP PO ×2 (08:15→19:39)
[2019-01-17] MEDS: amLODIPine 10 MG TAB PO (08:15)
[2019-01-17 09:51] LABS: ESR 51 MM/HR (0-15)
[2019-01-17] MEDS: LORazepam 2 MG/ML VIAL 1 MG IVP (12:27)
[2019-01-17] MEDS: Omnipaque 350 MG/ML 100 ML BTL IV (12:51)
[2019-01-17] MEDS: Omnipaque 350 MG/ML 50 ML BTL IV (13:03)
--- NOTE | 2019-01-17 13:14 | DI.CT_ITS ---
SYMPTOMS/DIAGNOSIS: F/U PSOAS/PARASPINAL ABSCESS CT OF THE ABDOMEN AND PELVIS: Comparison is made with January,. Images were performed from the lung bases through the upper thighs after IV and without oral contrast. There has been further decrease in size of the previously noted left iliopsoas abscess. A minimal amount of abscess collection is seen inferiorly in the upper thigh and along the anterior aspect of the left acetabulum. Some stranding remains present anterior to the left psoas muscle. No new abnormalities are identified. IMPRESSION: Continued improvement of left psoas abscess.
--- NOTE | 2019-01-17 14:59 | CHAPLAIN ---
I had a short visit with Jason today. He said he may need to go to [place], [place] for his next surgery, but he is holding out hope that surgeons at [facility] or [facility] will change their minds and offer to do surgery at one of those hospitals. Jason also acknowledges that this decision is out of his control. He had already been out this morning to [place]. He said a friend gave him a ride, but sometimes he chooses to walk there. Jason has a friend, Abih, who visits almost daily. Jason thanked me for visiting. I will continue to visit him.
[2019-01-17 15:30] VITALS: BP 137/83; PULSE 86; RESP 18; TEMP 37.1; O2SAT 98
[2019-01-17] MEDS: DULoxetine 30 MG CAP 60 MG PO (22:47)
[2019-01-18] MEDS: Normal Saline Flush 10 ML SYR IVP ×5 (02:08→18:28)
[2019-01-18] MEDS: oxyCODONE 15 MG TAB 30 MG PO ×5 (02:42→19:58)
[2019-01-18] MEDS: Acetaminophen 500 MG TAB 1000 MG PO ×3 (03:45→19:57)
[2019-01-18 05:55] VITALS: BP 137/77; PULSE 73; RESP 18; TEMP 37; O2SAT 97
[2019-01-18 08:15] VITALS: BP 143/98; PULSE 92; RESP 18; TEMP 36.5; O2SAT 93
[2019-01-18] MEDS: Pantoprazole 40 MG TABCR PO ×2 (08:19→19:59)
[2019-01-18] MEDS: Lidocaine Patch Removal 2 EACH TD (08:20)
[2019-01-18] MEDS: Cholecalciferol (Vitamin D3) 1,000 UNIT TAB 1000 UNITS PO (09:42)
[2019-01-18] MEDS: amLODIPine 10 MG TAB PO (09:42)
[2019-01-18] MEDS: Lactobacillus Acidophilus CAP 1 CAP PO ×3 (09:43→19:56)
[2019-01-18] MEDS: Lisinopril 10 MG TAB PO (09:43)
[2019-01-18] MEDS: Docusate Sodium 100 MG CAP PO ×2 (09:43→19:57)
[2019-01-18 14:50] VITALS: BP 117/77; PULSE 82; RESP 19; TEMP 37.4; O2SAT 98
[2019-01-18] MEDS: Ibuprofen 800 MG TAB PO (15:01)
--- NOTE | 2019-01-18 17:43 | PGE_ITS ---
Date of Service Date of service: 01/18/19 Time of Service: 17:42 Subjective Interval history since last seen: I have contacted and reviewed the case with Dr Giraldo (ID at [facility]). The patient is recommended to stay on IV oxacillin for up to 12 weeks. The end date will be determined by plateauing of ESR/CRP, which should be checked weekly. Upon completion of IV antibiotics, the patient would need to be on chronic suppressive doxycycline. The patient was also recommended to be in rifampin in addition to oxacillin if he can tolerate it. Speaking to Jason, his reacting to rifampin was abdominal pain/cramping, but he is willing to try it again to see if it is better. He has completed therapy for hepatitis C. We will recheck his LFT's - these will also need to be trended weekly while on rifampin. Finally, the patient may not have to have any more imaging, unless his CRP starts to go up. His imaging will likely never normalize. I have spoken with Jason about the results of this phone consult, and he verbalized understanding. He also shared with me that he still sometimes thinks about dying/killing himself. He states that today was a bad day, that he spent most of the day crying. He does not think he would ever hurt himself while in the hospital - he, however, is not so sure about when he gets discharged. He would like to talk to Dr Leroy again, if possible. He does not endorse suicidal ideations at this time. Objective Objective Clinical Data: Vital Signs Temperature 37.4 C 01/18/19 14:50 Temperature Source Tympanic 01/18/19 14:50 Pulse 82 01/18/19 14:50 Pulse Rhythm Regular 01/17/19 23:58 Respiratory Rate 19 01/18/19 14:50 Respiratory Effort Non-Labored 01/18/19 08:15 Respiratory Depth Normal 01/18/19 08:15 Respiratory Pattern Normal 01/18/19 08:15 Blood Pressure 117/77 01/18/19 14:50 Pulse Oximetry 98 01/18/19 14:50 Oxygen Delivery Method Room Air 01/18/19 14:50 Oxygen Flow Rate 0 01/18/19 14:50 Pain Level 8 01/18/19 15:02 Comment 01/18/19 08:15 Intake & Output 01/17/19 01/18/19 01/18/19 23:59 11:59 23:59 Intake Total 890 / 1290 420 / 420 Balance 890 / 1290 420 / 420 Intake: IV 170 / 330 170 / 170 Oral 720 / 960 250 / 250 Other: Urine Color Pale Yellow Urine Appearance Clear Clear Urine Odor None Comment per patient verbalization Voiding Methods Toilet Laboratory Results WBC 5.06 k/cumm (4.4-10.8) 01/17/19 06:55 RBC 4.40 m/cumm (4.50-6.00) L 01/17/19 06:55 Hgb 11.4 g/dL (13.5-17.5) L 01/17/19 06:55 Hct 36.0 % (40.0-50.0) L 01/17/19 06:55 MCV 81.8 fL (80-95) 01/17/19 06:55 MCH 25.9 pg (27.0-33.0) L 01/17/19 06:55 MCHC 31.7 g/dL (32.0-36.0) L 01/17/19 06:55 RDW 15.8 % (11.8-14.1) H 01/17/19 06:55 Plt Count 218 x1000/uL (130-400) 01/17/19 06:55 MPV 9.2 fL (8.0-11.0) 01/17/19 06:55 Immature Gran % 0.5 01/05/19 10:40 Neutrophils % 52.2 01/05/19 10:40 Lymphocytes % 35.7 01/05/19 10:40 Monocytes % 8.1 01/05/19 10:40 Eosinophils % 3.1 01/05/19 10:40 Basophils % 0.4 01/05/19 10:40 Absolute Neutrophils 4.42 k/cumm (1.2-6.7) 01/05/19 10:40 Absolute Lymphocytes 3.01 k/cumm (1.2-3.4) 01/05/19 10:40 Absolute Monocytes 0.68 k/cumm (0.11-0.7) 01/05/19 10:40 Absolute Eosinophils 0.26 k/cumm (0.0-0.7) 01/05/19 10:40 Absolute Basophils 0.03 k/cumm (0.0-0.2) 01/05/19 10:40 ESR 51 MM/HR (0-15) H 01/17/19 06:55 Sodium 141 mmol/L (136-145) 01/17/19 06:55 Potassium 3.8 mmol/L (3.5-5.1) 01/17/19 06:55 Chloride 104 mmol/L (98-107) 01/17/19 06:55 Carbon Dioxide 27.2 mmol/L (21.0-32.0) 01/17/19 06:55 Anion Gap 9.8 mmol/L (3-11) 01/17/19 06:55 BUN 16 mg/dL (7-18) 01/17/19 06:55 Creatinine 1.02 mg/dL (0.70-1.30) 01/17/19 06:55 Estimated GFR/1.73 m2 >= 60.00 (mL/min/1.73m2) 01/17/19 06:55 Glucose 124 mg/dL (70-100) H 01/17/19 06:55 Calcium 8.7 mg/dL (8.5-10.1) 01/17/19 06:55 Magnesium 2.1 mg/dL (1.8-2.4) 01/12/19 06:40 Total Bilirubin 0.3 mg/dL (0.2-1.0) 01/17/19 06:55 AST 17 U/L (15-37) 01/17/19 06:55 ALT 25 U/L (12-78) 01/17/19 06:55 Alkaline Phosphatase 124 U/L (46-116) H 01/17/19 06:55 C-Reactive Protein 1.66 mg/dL (0.0-0.3) H 01/17/19 06:55 Total Protein 7.1 g/dL (6.4-8.2) 01/17/19 06:55 Albumin 3.1 g/dL (3.4-5.0) L 01/17/19 06:55 25-OH Vitamin D Total 11.0 ng/ml (30-100) L 01/12/19 06:30 TSH 1.30 uIU/mL (0.358-3.74) 01/12/19 06:30 Urine Color [place] (Yellow) 01/05/19 15:50 Urine Clarity Clear 01/05/19 15:50 Urine pH 6.5 (5-8) 01/05/19 15:50 Ur Specific [place] 1.020 (1.005-1.025) 01/05/19 15:50 Urine Protein 100 mg/dL (Negative) H 01/05/19 15:50 Urine Ketones Trace mg/dL (Negative) H 01/05/19 15:50 Urine Blood Negative (Negative) 01/05/19 15:50 Urine Nitrite Positive (Negative) H 01/05/19 15:50 Urine Bilirubin Negative (Negative) 01/05/19 15:50 Urine Urobilinogen 1.0 EU/dL (Up TO 0.2) H 01/05/19 15:50 Ur Leukocyte Esterase Negative (Negative) 01/05/19 15:50 Urine RBC Negative (0-2) 01/05/19 15:50 Urine WBC 0-2 HPF (0-5) 01/05/19 15:50 Ur Epithelial Cells Negative HPF (Negative) 01/05/19 15:50 Urine Crystals Negative HPF (Negative) 01/05/19 15:50 Urine Bacteria Moderate HPF (Negative) 01/05/19 15:50 Urine Casts Negative LPF (Negative) 01/05/19 15:50 Urine Mucus Trace (Negative) 01/05/19 15:50 Urine Other Negative (Negative) 01/05/19 15:50 Ur Culture Indicated? No 01/05/19 15:50 Urine Glucose 100 mg/dL (Negative) 01/05/19 15:50 Urine Opiates Screen Positive (Negative) 01/05/19 15:50 Urine Methadone Screen Negative (Negative) 01/05/19 15:50 Ur Barbiturates Screen Negative (Negative) 01/05/19 15:50 Ur Tricyclics Screen Negative (Negative) 01/05/19 15:50 Ur Amphetamines Screen Negative (Negative) 01/05/19 15:50 U Benzodiazepines Scrn Positive (Negative) 01/05/19 15:50 Urine Cocaine Screen Negative (Negative) 01/05/19 15:50 Ur THC Screen Negative (Negative) 01/05/19 15:50
[2019-01-18] MEDS: DULoxetine 30 MG CAP 60 MG PO (22:10)
[2019-01-19 00:08] VITALS: BP 159/110; PULSE 96; RESP 18; TEMP 36.6; O2SAT 100
[2019-01-19] MEDS: oxyCODONE 15 MG TAB 30 MG PO ×6 (00:08→19:54)
[2019-01-19] MEDS: Acetaminophen 500 MG TAB 1000 MG PO ×3 (02:51→19:17)
[2019-01-19] MEDS: Ibuprofen 800 MG TAB PO ×2 (02:51→11:17)
[2019-01-19 07:28] LABS: ALT 25 U/L (12-78); AST 19 U/L (15-37); Albumin 3.2 g/dL (3.4-5.0); Alkaline Phosphatase 127 U/L (46-116); Anion Gap 8.3 mmol/L (3-11); BUN 17 mg/dL (7-18); Bilirubin, Direct 0.06 mg/dL (0.00-0.20); Bilirubin, Total 0.2 mg/dL (0.2-1.0); CO2 26.7 mmol/L (21.0-32.0); CREATININE 1.02 mg/dL (0.70-1.30); Calcium 8.8 mg/dL (8.5-10.1); Chloride 104 mmol/L (98-107); Glucose 141 mg/dL (70-100); Potassium 4.2 mmol/L (3.5-5.1); Sodium 139 mmol/L (136-145); Total Protein 7.1 g/dL (6.4-8.2)
[2019-01-19] MEDS: Pantoprazole 40 MG TABCR PO ×2 (08:20→19:17)
[2019-01-19] MEDS: Normal Saline Flush 10 ML SYR IVP ×5 (08:21→19:16)
[2019-01-19 09:22] VITALS: BP 155/98; PULSE 85; RESP 20; TEMP 36.4; O2SAT 98
[2019-01-19] MEDS: Cholecalciferol (Vitamin D3) 1,000 UNIT TAB 1000 UNITS PO (09:23)
[2019-01-19] MEDS: Lactobacillus Acidophilus CAP 1 CAP PO ×3 (09:23→19:17)
[2019-01-19] MEDS: Lisinopril 10 MG TAB PO (09:23)
[2019-01-19] MEDS: amLODIPine 10 MG TAB PO (09:23)
[2019-01-19] MEDS: Docusate Sodium 100 MG CAP PO ×2 (09:23→19:17)
[2019-01-19 10:05] VITALS: BP 145/72; PULSE 80
[2019-01-19] MEDS: LORazepam 2 MG/ML VIAL 1 MG IVP (10:10)
--- NOTE | 2019-01-19 10:30 | DI.CT_ITS ---
SYMPTOM/DIAGNOSIS: S/P FALL, HIT HEAD AND NECK NONCONTRAST HEAD CT: There is no evidence of an intra/extra-axial hemorrhage. The oakley white matter differentiation is maintained. The ventricles are normal. There is no evidence of a skull fracture. The paranasal sinuses are normal. There is no evidence of a mastoid effusion. SUMMARY: No acute intracranial abnormality is seen. CERVICAL SPINE CT: The examination was carried out according to the usual protocol. The cervical vertebrae are intact and are in normal alignment. Mild degenerative changes are identified. The neural canal is widely patent throughout. The posterior elements are intact. The odontoid is intact and is closely applied to the anterior arch of C 1. SUMMARY: No evidence of a fracture or subluxation.
--- NOTE | 2019-01-19 10:43 | NUR.NOTE ---
Nursing Note: Around 08:30am Jason was in my office having our normal morning talk, he was telling me he was going to be here for 6-8 more weeks for antibiotics and he seemed ok with that. But during our conversation he kept doing his nervous twitch, snorting, with a weird eye roll, this is normal for him, but during our talk he did this very frequently a lot more then he normally does or would. I thought this was a little odd but he has been more down in the dumps lately and I just thought he had more going on then he was telling me and he was upset causing this twitch.
[2019-01-19 10:54] VITALS: BP 148/111; PULSE 87; RESP 18; TEMP 36.6; O2SAT 98
--- NOTE | 2019-01-19 14:47 | CMACTNOTE_ITS ---
- If Service Date Differs Date of service: 01/19/19 Time of Service: 14:34 Care Management Activity Note Jason's fell in the shower today he states he hit his head. He did have a CT scan done and is being monitored. He states his mood has been up and down. His Friend Abhi is here visiting today. He continues to request the Sudoku puzzles and feels comfortable asking for a new book when he needs one. He also was provided with some colored pencils and offered adult coloring book if needed. Jason enjoys walking outside, his friend Abhi has been in everyday to walk around with him and visit. Jason has a palliative consult on 01/21/19 at 0800 with . Jason met with [employer] and received assistance with completing housing applications. Jason was able to provide his SS card to complete the applications. Jason has been offered activity cart, reiki and music therapy. He has a TV in the room and phone. A:Jason is a 43 year old male with a Psoas abscess on IV antibiotics x 6 weeks, anticipate completion date 01/24/19, P: Jason remains SB1 status. Jason continues to receive IV antibiotics for an additional 4 weeks recommended by infectious disease. He will need to have repeat imaging and continue to follow the abscess. CM to continue to assist patient with discharge planning and housing through community agencies. Jason will continue to have consult through and Palliative care support.
[2019-01-19 15:33] VITALS: BP 103/66; PULSE 77; RESP 17; TEMP 36.3; O2SAT 96
[2019-01-19 19:15] VITALS: BP 152/98; PULSE 78; RESP 18; TEMP 36.1; O2SAT 96
[2019-01-19] MEDS: DULoxetine 30 MG CAP 60 MG PO (22:11)
[2019-01-20] VITALS (7 sets, daily range): BP systolic 103–144; BP diastolic 58–105; PULSE 76–88; RESP 16–18; TEMP 35.9–36.7; O2SAT 95–98
[2019-01-20] MEDS: oxyCODONE 15 MG TAB 30 MG PO ×6 (00:36→20:38)
[2019-01-20] MEDS: Normal Saline Flush 10 ML SYR IVP ×3 (02:06→10:16)
[2019-01-20] MEDS: Acetaminophen 500 MG TAB 1000 MG PO ×3 (04:33→20:32)
[2019-01-20] MEDS: Ibuprofen 800 MG TAB PO ×2 (08:14→16:08)
[2019-01-20] MEDS: Lactobacillus Acidophilus CAP 1 CAP PO ×3 (08:14→20:32)
[2019-01-20] MEDS: Docusate Sodium 100 MG CAP PO ×2 (08:14→20:32)
[2019-01-20] MEDS: Cholecalciferol (Vitamin D3) 1,000 UNIT TAB 1000 UNITS PO (08:14)
[2019-01-20] MEDS: Pantoprazole 40 MG TABCR PO ×2 (08:14→20:32)
[2019-01-20] MEDS: amLODIPine 10 MG TAB PO (08:15)
[2019-01-20] MEDS: Lisinopril 10 MG TAB PO (08:15)
--- NOTE | 2019-01-20 08:22 | NUR.NOTE ---
Nursing Note: 0800: pt stating that he needs to get out of here and go make some money. 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 pt asks RN where his pump is; RN states IV infusion pump was returned to [facility] several weeks ago. pt states that he needs it back so he can go out and make money. pt also states he needs to get out of here to go and make some money so he can get a better place to live or a one way ticket to somewhere. reported information to Ning Ramos RN CM. continue to monitor.
--- NOTE | 2019-01-20 09:01 | PSYCO_ITS ---
Date of service: 01/20/19 Time of Service: 08:30 History of Present Illness Narrative: Overnight events: fell last night in bathroom, head CT negative Medications: no changes Subjective: Mood: I'm so depressed feels no purpose to life. Reports feeling very irritable. Still verbalizing that in the future when he leaves the hospital he will look in to ways to end his life in a way that won't hurt anyone and people won't know for a while. 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 I need to earn money. States that he needs to keep up with his child support. Does remember that he felt less depressed a few days ago. My abscess is reducing. I should feel excited. Anxiety: very anxious, had panic attacks last night, is worried about finances all the time and how he will manage his life after discharge. Cognition: endorses having paranoid thoughts, interpreting sounds as nurses laughing at him, still with worries that they could poison him, believes they delay in responding to his denise or his IV alarm. Post fall symptoms: states that he has a headache still and feel a bit cloudy. States that he fell in bathroom because putting on his shorts, was bearing weight all on left leg to put right leg in shorts and left leg gave out. REVIEW OF SYSTEMS: Constitutional: +fatigue Musculoskeletal/neuro: left leg is weak Psych: see above MENTAL STATUS EXAM: Constitutional: appears unwell, stated age, appropriate dress, grooming, hygiene. Attitude: cooperative Psychomotor: no retardation or agitation Speech: non-pressured, normal volume and prosody. No articulation problems noted. Associations: no looseness Thought process: linear, goal-directed but illogical at times Thought content without michelle psychosis but with anxious thoughts bordering on delusional No active suicidal or homicidal ideations. Still with nonspecific suicidal ideation for the future but no intent or plan to act on suicidal thoughts now. Hallucinations denied Mood: depressed, irritable Affect: very anxious, tearful, constricted Attention/Concentration: somewhat poor Judgment/insight: poor Oriented to self, place, year, month, but needed clarification of day and date. Language appropriate to age and education Fund of knowledge appropriate to age and education Memory intact to recent and remote events Other cognitive testing: none Assessment and Plan (1) Major depressive episode: Current visit: No Status: Acute Jason Cuevas is a 43 year old male admitted for pain control and IV antibiotic for left psoas muscle abscess. History and clinical exam is consistent with major depressive episode and he has responded well to increase of duloxetine to 60mg daily, but mood seems to have taken a down-turn in the last few days. This seems largely anxiety related. Anxiety and paranoid thoughts seem to be related to difficulty sorting out causality from correlation which is likely a baseline problems related to traumatic brain injury. Much time was spent processing his suicidal thoughts and hopelessness, trying to set realistic goals for discharge and work and living afterwards. Anxiety is triggered by discussion of work which he states his his goal. He was not able to engage in modifying his short-term goal to staying in hospital and working on healing. He perseverated on needing to work, even though this increased his anxiety. We discussed medication options including risperidone which he declined given past experience on it with weight gain and restless leg. We discussed that he could have the duloxetine increased to 80 or 90mg and he declined it for right now but knows he can request it if desired. Recommendations: - continue current medication management. - consider increase of duloxetine to 90mg if patient wishes. Safety: patient continues to deny any intent for harm to self or others while admitted to [facility] and has no history of such imminent threats in the healthcare setting. Continue with current privileges. I will continue to be involved with his care while he is here at [facility]. (2) Anxiety: Current visit: No Status: [facility] Social History Smoking/Tobacco Use Status: Current every day Tobacco Type: cigarettes Alcohol Intake: never Drug use: Never Substance use type: does not use and former substance user Details: Hx drug abuse Do you feel safe at home: Yes Do you feel safe in your relationship?: Yes Results Last Vital Signs Temp 36.7 C 01/20/19 07:59 Pulse 84 01/20/19 07:59 Resp 18 01/20/19 07:59 BP 141/105 H 01/20/19 07:59 Pulse Ox 96 01/20/19 07:59 Labs : 01/17/19 06:55 01/19/19 06:54
--- NOTE | 2019-01-20 09:34 | OT.INNT ---
Date of service: 01/20/19 Time of Service: 09:15 Occupational Therapy Notes 01/20/19 OT consult received and pt's chart was reviewed. OT went in to see pt and as soon as OT introduced herself as occupational therapy, pt began swearing telling OT that this is ridiculous and that it is because of the shower. He states he can do everything himself and that he does not want any (A), he does not want anyone in his room and that OT could get the fuck out of his room before he gets angry. As OT went to the leave the room pt states, I appreciate you, have a nice day. OT will not be able to further assess pt's functional (I) in ADLs/IADLs based on pts current status. due to this OT will plan to discharge pt from skilled OT services. If further consultation is needed OT will need a new referral. Emely Patterson, OTR/L [facility]
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
--- NOTE | 2019-01-20 12:00 | PT.INNT ---
Date of service: 01/20/19 Time of Service: 12:21 PT Notes Referral for PT services was received today due to recent fall. Skilled physical therapy visit withheld today per nursing request due to increased agitation and behavioral changes. Patient will be reassessed the next day to determine appropriateness of PT services. Thank you very much for this referral.
--- NOTE | 2019-01-20 13:20 | PGE_ITS ---
Date of Service Date of service: 01/20/19 Time of Service: 13:18 Assessment and Plan (1) Psoas abscess, left: Current visit: No Status: Acute Continue IV Oxacillin, origninal end date was 01/24. CT scan shows improvement, most recent CRP improved at 1.66. Dr. Connell spoke with TERRI Hernandes at [facility], who recommends that Mr Cuevas stay on IV oxacillin for up to 12 weeks. The end date will be determined by plateauing of ESR/CRP, which should be checked weekly. He will need to remain on chronic suppressive doxycycline after the completion of the IV antibiotics. The patient was also recommended to be in rifampin in addition to oxacillin if he can tolerate due to the hardware involvement in his back. The patient reports having GI upset when he was previously on Rifampin, however, he is willing to try it again. He was taking Rifampin [address] [facility] previously. He has completed therapy for hepatitis C. We will recheck his LFT's - these will also need to be trended weekly while on rifampin. Finally, the patient may not have to have any more imaging, unless his CRP starts to go up. His imaging will likely never normalize. Continue to follow weekly ESR, CRP, add LFTs if he resumes Rifampin. (2) Anxiety: Current visit: No Status: Chronic He is followed by Dr. Gilbert, Psychiatry. His case was discussed with Dr. Gilbert given his increased anxiety and concern that he could potentially be beginning a manic epidsode. She recommends treating his anxiety with ativan PRN for today and continue to monitor closely. Dr. Gilbert met with him and discussed other medication options, however, he declined trying a new medication today. Dr. Gilbert will continue to follow his case. (3) Chronic pain: Current visit: No Status: Chronic In the setting of psoas abscess and with history of substance abuse. There was a plan to actively decrease his oxycodone use while titrating a fentanyl patch, however, he did not do well with this transition and the fentanyl patch was ultimately discontinued last week. His pain is well controlled on oxycodone at this time. Continue to monitor. Consider decreasing oxycodone as his abscess/wound improved. He has agreed to random urine drug screens. He is asking for a urine drug screen to be done today, he would like to prove that he is not using any illicit drugs. (4) Hypertension: Current visit: No Status: Chronic Continue clonidine patch, amlodipine and pain control. (5) Fall: Current visit: Yes Status: Acute Mr. Cuevas fell yesterday and struck his head and neck. He had a CT head and cervical spine which were normal. There is concerned that he could have possibly sustained a concussion. His neurological checks have been normal. Continue to monitor closely. (6) DVT prophylaxis: Current visit: No Status: Acute Chemical DVT prophylaxis not indicated in a 43 year old patient that ambulates frequently throughout the day. (7) Discharge planning issues: Current visit: No Status: Acute May consider substance abuse treatment at time of discharge. States he does not want to be on pain medication at all. This case was discussed with Dr. Connell who is in agreement. Subjective Interval history since last seen: Mr. Cuevas reports feeling anxious today. Unfortunately, he fell yesterday and stuck his head and neck, his head is still sore. He feels foggy today. He did not sleep well last night. He is verbalizing paranoid thoughts, he verbalizes concern that somebody is putting medications in his food. He reports that his food this morning looked like it lyle d punctures in it. He states he has been getting meals from the cafeteria so nobody can put anything in his food. When questioned if he will get his lunch from the cafeteria, he states that he does not feel hungry today. He reports feeling tired. He reports feeling like he is being mocked and laughed at by nursing. He continues to report LLE weakness. He states his wound still has an open area that is draining. He denies any other concerns such as chest pain/pressure, shortness of breath, coughing, wheezing, abdominal pain, nausea, vomiting, diarrhea. He is agreeable to PT for RLE strengthening. He does not feel that he needs OT. He is requesting a urine drug screen today, he feels that this will prove that he is not using drugs so people will not question him. He was seen by Dr. Gilbert today. Exam Narrative Exam Narrative: General: laying in bed, appears anxious, in no acute distress. Answers questions appropriately. Speech is clear, stutters at times. HEENT: normocephalic, atraumatic, pupils equal and round reactive to light, EOMI, mucous membranes moist, tongue protrudes midline, palate rises midline. Psych: Normal mood and affect. Respiratory: Respirations even and unlabored, lung sounds clear bilaterally Cardiac: Heart has regular rate and rhythm, no murmur appreciated. GI: normoactive bowel sounds, abdomen nondistended, tenderness on palpation of RUQ, mild left CVA tenderness Extremities: No clubbing, cyanosis or edema. LLE with approximately 1 cm open area at center of healed incision, draining small amount of dark, bloody drainage. Objective Objective Clinical Data: Vital Signs Temperature 36.7 C 01/20/19 12:07 Temperature Source Tympanic 01/20/19 12:07 Pulse 79 01/20/19 12:07 Pulse Rhythm Regular 01/20/19 08:36 Respiratory Rate 16 01/20/19 12:07 Respiratory Effort Non-Labored 01/20/19 08:36 Respiratory Depth Normal 01/20/19 08:36 Respiratory Pattern Normal 01/20/19 08:36 Blood Pressure 125/83 01/20/19 12:07 Pulse Oximetry 98 01/20/19 12:07 Oxygen Delivery Method Room Air 01/20/19 12:07 Oxygen Flow Rate 0 01/20/19 12:07 Pain Level 8 01/20/19 12:42 Comment 01/20/19 04:35 Intake & Output 01/19/19 01/20/19 01/20/19 23:59 11:59 23:59 Intake Total 400 / 1750 470 / 470 Balance 400 / 1750 470 / 470 Intake: IV 150 / 300 230 / 230 Oral 250 / 1450 240 / 240 Other: Comment pt voided at this time independently in bathroom; urine not assessed Voiding Methods Toilet Toilet Laboratory Results WBC 5.06 k/cumm (4.4-10.8) 01/17/19 06:55 RBC 4.40 m/cumm (4.50-6.00) L 01/17/19 06:55 Hgb 11.4 g/dL (13.5-17.5) L 01/17/19 06:55 Hct 36.0 % (40.0-50.0) L 01/17/19 06:55 MCV 81.8 fL (80-95) 01/17/19 06:55 MCH 25.9 pg (27.0-33.0) L 01/17/19 06:55 MCHC 31.7 g/dL (32.0-36.0) L 01/17/19 06:55 RDW 15.8 % (11.8-14.1) H 01/17/19 06:55 Plt Count 218 x1000/uL (130-400) 01/17/19 06:55 MPV 9.2 fL (8.0-11.0) 01/17/19 06:55 Immature Gran % 0.5 01/05/19 10:40 Neutrophils % 52.2 01/05/19 10:40 Lymphocytes % 35.7 01/05/19 10:40 Monocytes % 8.1 01/05/19 10:40 Eosinophils % 3.1 01/05/19 10:40 Basophils % 0.4 01/05/19 10:40 Absolute Neutrophils 4.42 k/cumm (1.2-6.7) 01/05/19 10:40 Absolute Lymphocytes 3.01 k/cumm (1.2-3.4) 01/05/19 10:40 Absolute Monocytes 0.68 k/cumm (0.11-0.7) 01/05/19 10:40 Absolute Eosinophils 0.26 k/cumm (0.0-0.7) 01/05/19 10:40 Absolute Basophils 0.03 k/cumm (0.0-0.2) 01/05/19 10:40 ESR 51 MM/HR (0-15) H 01/17/19 06:55 Sodium 139 mmol/L (136-145) 01/19/19 06:54 Potassium 4.2 mmol/L (3.5-5.1) 01/19/19 06:54 Chloride 104 mmol/L (98-107) 01/19/19 06:54 Carbon Dioxide 26.7 mmol/L (21.0-32.0) 01/19/19 06:54 Anion Gap 8.3 mmol/L (3-11) 01/19/19 06:54 BUN 17 mg/dL (7-18) 01/19/19 06:54 Creatinine 1.02 mg/dL (0.70-1.30) 01/19/19 06:54 Estimated GFR/1.73 m2 >= 60.00 (mL/min/1.73m2) 01/19/19 06:54 Glucose 141 mg/dL (70-100) H 01/19/19 06:54 Calcium 8.8 mg/dL (8.5-10.1) 01/19/19 06:54 Magnesium 2.1 mg/dL (1.8-2.4) 01/12/19 06:40 Total Bilirubin 0.2 mg/dL (0.2-1.0) 01/19/19 06:54 Conjugated Bilirubin 0.06 mg/dL (0.00-0.20) 01/19/19 06:54 AST 19 U/L (15-37) 01/19/19 06:54 ALT 25 U/L (12-78) 01/19/19 06:54 Alkaline Phosphatase 127 U/L (46-116) H 01/19/19 06:54 C-Reactive Protein 1.66 mg/dL (0.0-0.3) H 01/17/19 06:55 Total Protein 7.1 g/dL (6.4-8.2) 01/19/19 06:54 Albumin 3.2 g/dL (3.4-5.0) L 01/19/19 06:54 25-OH Vitamin D Total 11.0 ng/ml (30-100) L 01/12/19 06:30 TSH 1.30 uIU/mL (0.358-3.74) 01/12/19 06:30 Urine Color [place] (Yellow) 01/05/19 15:50 Urine Clarity Clear 01/05/19 15:50 Urine pH 6.5 (5-8) 01/05/19 15:50 Ur Specific [place] 1.020 (1.005-1.025) 01/05/19 15:50 Urine Protein 100 mg/dL (Negative) H 01/05/19 15:50 Urine Ketones Trace mg/dL (Negative) H 01/05/19 15:50 Urine Blood Negative (Negative) 01/05/19 15:50 Urine Nitrite Positive (Negative) H 01/05/19 15:50 Urine Bilirubin Negative (Negative) 01/05/19 15:50 Urine Urobilinogen 1.0 EU/dL (Up TO 0.2) H 01/05/19 15:50 Ur Leukocyte Esterase Negative (Negative) 01/05/19 15:50 Urine RBC Negative (0-2) 01/05/19 15:50 Urine WBC 0-2 HPF (0-5) 01/05/19 15:50 Ur Epithelial Cells Negative HPF (Negative) 01/05/19 15:50 Urine Crystals Negative HPF (Negative) 01/05/19 15:50 Urine Bacteria Moderate HPF (Negative) 01/05/19 15:50 Urine Casts Negative LPF (Negative) 01/05/19 15:50 Urine Mucus Trace (Negative) 01/05/19 15:50 Urine Other Negative (Negative) 01/05/19 15:50 Ur Culture Indicated? No 01/05/19 15:50 Urine Glucose 100 mg/dL (Negative) 01/05/19 15:50 Urine Opiates Screen Positive (Negative) 01/05/19 15:50 Urine Methadone Screen Negative (Negative) 01/05/19 15:50 Ur Barbiturates Screen Negative (Negative) 01/05/19 15:50 Ur Tricyclics Screen Negative (Negative) 01/05/19 15:50 Ur Amphetamines Screen Negative (Negative) 01/05/19 15:50 U Benzodiazepines Scrn Positive (Negative) 01/05/19 15:50 Urine Cocaine Screen Negative (Negative) 01/05/19 15:50 Ur THC Screen Negative (Negative) 01/05/19 15:50
[2019-01-20] MEDS: LORazepam 1 MG TAB PO ×2 (14:53→22:11)
[2019-01-20 16:37] LABS: *AMPHETAMINES SCREEN URINE Negative (Negative); *BARBITURATES SCREEN URINE Negative (Negative); *BENZODIAZEPINES SCREEN URINE Negative (Negative); Cannabinoids THC Negative (Negative); Cocaine Screen,Urine Negative (Negative); METHADONE URINE SCREEN Negative (Negative); OPIATES URINE SCREEN POSITIVE (Negative)
[2019-01-20 16:41] LABS: Tricyclic Antidepressants Negative (Negative)
[2019-01-20] MEDS: Lidocaine 5% Patch 2 PATCH TP (20:32)
[2019-01-20] MEDS: DULoxetine 30 MG CAP 60 MG PO (22:05)
[2019-01-21] MEDS: oxyCODONE 15 MG TAB 30 MG PO ×5 (01:13→17:00)
[2019-01-21] MEDS: Acetaminophen 500 MG TAB 1000 MG PO ×2 (04:47→11:20)
[2019-01-21] MEDS: Lactobacillus Acidophilus CAP 1 CAP PO ×2 (08:01→14:11)
[2019-01-21] MEDS: Ibuprofen 800 MG TAB PO (08:01)
[2019-01-21] MEDS: Cholecalciferol (Vitamin D3) 1,000 UNIT TAB 1000 UNITS PO (08:01)
[2019-01-21] MEDS: LORazepam 1 MG TAB PO ×2 (08:02→16:59)
[2019-01-21] MEDS: Docusate Sodium 100 MG CAP PO (08:02)
[2019-01-21] MEDS: Lisinopril 10 MG TAB PO (08:02)
[2019-01-21] MEDS: amLODIPine 10 MG TAB PO (08:02)
[2019-01-21] MEDS: Pantoprazole 40 MG TABCR PO (08:03)
[2019-01-21] MEDS: Lidocaine Patch Removal 2 EACH TD (08:11)
[2019-01-21 08:42] VITALS: BP 138/86; PULSE 81; RESP 18; TEMP 37.1; O2SAT 97
[2019-01-21] MEDS: Normal Saline Flush 10 ML SYR IVP ×3 (09:22→14:12)
--- NOTE | 2019-01-21 09:30 | PDOC.CMPRO ---
- If Service Date Differs Date of service: 01/21/19 Time of Service: 09:30 Care Management Progress Note S.O: CM into meet with patient, he is having increase pain he is unable to meet with this morning. Jason states that he wants his pain controlled he does not believe he is having spasms and reports Ativan is not helping. CM is concerned related to Jason recent change in behaviors and his discussion reported by nursing which include Jason stating that he treat his own pain, and having paranoid thoughts including accusing people of poisoning his food. MD is aware of comments and continues to consult psychiatry. Jason denies comments to client care coordinator he states he is feeling anxious and wants his pain treated. CM will continue to provide support, orthopedics is consulting today and making recommendations. Jason understands that he needs at least 4 weeks of antibiotics. Per provider pain medication will be increased with the addition of steroids and IV toradol per provider. A: Jason is a 43 year old male with a left hip abscess being treated with IV antibiotics for an additional 4 weeks as recommended by Infectious disease. P: Jason remains SB1 status. Jasno continues to receive IV antibiotics for an additional 4 weeks recommended by infectious disease. He will need to have repeat imaging and continue to follow the abscess. CM to continue to assist patient with discharge planning and housing through community agencies. Jason will continue to have consult through and Palliative support once consult is completed.
[2019-01-21] MEDS: methylPREDNISolone 4 MG TAB 8 MG PO (10:49)
[2019-01-21] MEDS: Ketorolac 15 MG/ML VIAL IVP (11:20)
[2019-01-21] MEDS: cloNIDine 0.1 MG PATCH TD (11:20)
--- NOTE | 2019-01-21 12:28 | PT.INNT ---
Date of service: 01/21/19 Time of Service: 08:30 PT Notes Another attempt at seeing patient for PT consult was done today but nurse recommended to not push through as patient has been tearful and continues to be agitated. Patient is not appropriate for a therapy visit at this time. Thank you very much for this referral. Zofia Foster PT, DPT, [facility]
[2019-01-21] MEDS: methylPREDNISolone 4 MG TAB PO ×2 (12:58→16:59)
--- NOTE | 2019-01-21 13:57 | NUR.NOTE ---
Nursing Note: clonidine patch removed prior to placement of new clonidine patch. OWEN Cruz verifies removal of patch. patch placed in disposal area
[2019-01-21 15:05] VITALS: BP 125/75; PULSE 85; RESP 18; TEMP 36.9; O2SAT 98
--- NOTE | 2019-01-21 15:11 | W.PM.DS.N ---
Date of service: 01/21/19 Time of Service: 15:11 DS: Diagnosis Discharge Diagnosis (1) Psoas abscess, left: Status: Acute (2) Anxiety: Status: Chronic (3) Chronic pain: Status: Chronic (4) Hypertension: Status: Chronic (5) Fall: Status: Acute (6) DVT prophylaxis: Status: Acute (7) Discharge planning issues: Status: Acute Discharge Plan Disposition Patient Disposition: [facility] INPAT[facility] Condition: Fair Discharge Details Reason For Visit: LEFT PSOAS ABSCESS Admit Date/Time: 01/04/19 17:08 Admit Provider: Denise Connell Attending Provider: Denise Connell Primary Care Provider: Ashely Mueller [facility] Course Hospital Course: Mr. Cuevas is a 43 year old man who has been here on swing bed status for IV Oxacillin for left psoas abscess. He appears to be improving from that standpoint as his CRP was down to 1.66 on most recent lab work. He also had a CT abdomen/pelvis which showed improvement. Dr. Connell spoke with TERRI Hernandes at [facility], who recommends that Mr Cuevas stay on IV oxacillin for up to 12 weeks. The end date will be determined by plateauing of ESR/CRP, which should be checked weekly. He will need to remain on chronic suppressive doxycycline after the completion of the IV antibiotics. The patient was also recommended to be in rifampin in addition to oxacillin if he can tolerate due to the hardware involvement in his back. Unfortunately, he has been reporting increased pain, weakness, numbness and tingling in his LLE. He actually fell on 01/19/19, he reported that his LLE gave out, he went on to have a CT head and neck which were normal. He was seen by Dr. Restrepo, Orthopedics, who agrees that this pain appears to be radiculopathy. He agreed with starting medrol dosepak, he also recommended scheduled toradol and muscle relaxers. Jason refuses muscle relaxers, but agrees to trial steroids and NSAIDS. He describes the pain as electric, and he was offered gabapentin but he refused due to it causing restless leg syndrome. PT has been consulted to work on strengthening of the LLE and balance. In addition, he has been increasingly more anxious and showing signs of paranoia. Yesterday, he verbalized concern that his food was being tapered with and that nurses were laughing at him. He has not been sleeping well. There are concerns the increased anxiety and changing mood could represent a manic prodrome. He went on to verbalize suicidal ideation and stating that when he left the hospital he was going to leave the area and end his life. His case was discussed with Dr. Gilbert who initially recommended ativan, however when his symptoms progressed today and appeared to be possibly related to his underlying bipolar, she recommended initiating olanzapine today. Jason was agreeable to trying olanzapine. Given his suicidal ideation with seemingly unstable mental status as well as increased anxiety and unsteady gait, it was determined that it was not safe for him to be going outside alone. It was determined that it was in his best interest to have a mental health evaluation mental health was consulted. Mental health consult pending. He transitioned back to acute status for his safety and mental health evaluation as well as physical therapy and stabilization of his underlying mood disorder. Home Meds and New Rx's Prescriptions: No Action amlodipine 5 mg Tablet 5 mg PO DAILY Qty: 30 RF: 0 docusate sodium [Colace] 100 mg Capsule 100 mg PO BID Qty: 60 RF: 0 pantoprazole 40 mg Tablet,Delayed Release (Dr/Ec) 40 mg PO BID@729,1999 Qty: 60 RF: 0 ibuprofen [IBU] 800 mg Tablet 800 mg PO TID PRN (Reason: Pain) Qty: 90 RF: 3 clonidine 0.1 mg/24 hr Patch Weekly See Rx Instructions .ROUTE .COMPLEX RF: 0 acidophilus-pectin, citrus 25 million cell -100 mg Tablet 1 cap PO TID Qty: 30 RF: 0 lidocaine [Lidoderm] 5 % adhesive patch,medicated 1 patch topical QAM Qty: 30 RF: 0 oxacillin 2 gram Recon Soln 2,000 mg IV Q4H 31 Days RF: 0 duloxetine [Cymbalta] 30 mg Capsule,Delayed Release(Dr/Ec) 30 mg PO DAILY Qty: 14 RF: 0 oxycodone 15 mg tablet 30 mg PO Q4H MDD 180mg Qty: 60 RF: 0 Discharge Instructions Stand Alone Forms: Nursing Discharge Form Referrals: Ashely Mueller [Primary Care Provider] - Activity:: Activity as Tolerated Equipment/Supplies:: No Equipment Needed Diet:: As Tolerated Discharge Orders Discharge Orders: Discharge Order (Routine); Ordered 01/21/19 Ordered By: Puja Frazier Discharge Data Discharge Date/Time-TO BE ENTERED AT DEPARTURE: 01/21/19 17:19 Exam Narrative Exam Narrative: General: sitting in bed, appears anxious, in no acute distress. Answers questions appropriately. Speech is clear, stutters at times. HEENT: normocephalic, atraumatic, pupils equal and round reactive to light, EOMI, mucous membranes moist, tongue protrudes midline, palate rises midline. Psych: appears anxious, not verbalizing paranoid thoughts at this time. Respiratory: Respirations even and unlabored, lung sounds clear bilaterally Cardiac: Heart has regular rate and rhythm, no murmur appreciated. GI: normoactive bowel sounds, abdomen nondistended, tenderness on palpation of RUQ, mild left CVA tenderness Extremities: No clubbing, cyanosis or edema. LLE with approximately 1 cm open area at center of healed incision, draining small amount of dark, bloody drainage. DS: Data Vitals/I&O Vitals and I&O: Vital Signs Temperature 36.9 C 01/21/19 15:05 Temperature Source Tympanic 01/21/19 15:05 Pulse 85 01/21/19 15:05 Pulse Rhythm Regular 01/21/19 08:00 Respiratory Rate 18 01/21/19 15:05 Respiratory Effort Non-Labored 01/21/19 08:00 Respiratory Depth Normal 01/21/19 08:00 Respiratory Pattern Normal 01/21/19 08:00 Blood Pressure 125/75 01/21/19 15:05 Pulse Oximetry 98 01/21/19 15:05 Oxygen Delivery Method Room Air 01/21/19 15:05 Oxygen Flow Rate 0 01/21/19 15:05 Pain Level 9 01/21/19 15:05 Comment 01/21/19 08:42 Intake & Output 01/20/19 01/21/19 01/21/19 23:59 11:59 23:59 Intake Total 150 / 620 1240 / 1240 Balance 150 / 620 1240 / 1240 Intake: IV 150 / 380 200 / 200 Oral 1040 / 1040 Other: Urine Color Yellow Urine Appearance Clear Urine Odor Normal Comment pt voided ad floresita in toilet, urine not assessed at this time Voiding Methods Toilet Completed studies during hospitalization [Text1]: 01/18/19: CT OF THE ABDOMEN AND PELVIS: Comparison is made with January,. Images were performed from the lung bases through the upper thighs after IV and without oral contrast. There has been further decrease in size of the previously noted left iliopsoas abscess. A minimal amount of abscess collection is seen inferiorly in the upper thigh and along the anterior aspect of the left acetabulum. Some stranding remains present anterior to the left psoas muscle. No new abnormalities are identified. IMPRESSION: Continued improvement of left psoas abscess. 01/19/19: NONCONTRAST HEAD CT: There is no evidence of an intra/extra-axial hemorrhage. The [place] white matter differentiation is maintained. The ventricles are normal. There is no evidence of a skull fracture. The paranasal sinuses are normal. There is no evidence of a mastoid effusion. SUMMARY: No acute intracranial abnormality is seen. CERVICAL SPINE CT: The examination was carried out according to the usual protocol. The cervical vertebrae are intact and are in normal alignment. Mild degenerative changes are identified. The neural canal is widely patent throughout. The posterior elements are intact. The odontoid is intact and is closely applied to the anterior arch of C 1. SUMMARY: No evidence of a fracture or subluxation. Labs on day of discharge: Labs from last 24 hours 01/20/19 14:55 Urine Opiates Screen Positive Urine Methadone Screen Negative Ur Barbiturates Screen Negative Ur Tricyclics Screen Negative Ur Amphetamines Screen Negative U Benzodiazepines Scrn Negative Urine Cocaine Screen Negative Ur THC Screen Negative PFSH Social History Smoking/Tobacco Use Status: Current every day Tobacco Type: cigarettes Alcohol Intake: never Drug use: Never Substance use type: does not use and former substance user Details: Hx drug abuse Do you feel safe at home: Yes Do you feel safe in your relationship?: Yes
--- NOTE | 2019-01-21 16:47 | PGE_ITS ---
Date of Service Date of service: 01/21/19 Time of Service: 08:42 Assessment and Plan (1) Psoas abscess, left: Current visit: No Status: Acute Jai is a 43-year-old who I have known well for his left psoas abscess with spinal extension. He has had this worsening of his symptoms although all indices are showing improvements. His symptoms are other new going down the left leg. He has had this pain within his pelvis before. Without other systemic findings I doubt this is in a worsening infection. Is very possible that he is having some nerve root irritation on the left side. Also could very well be psychosomatic in nature due to some increase in pain. I think the best thing is to take it slow. He has no change in bowel or bladder habits and no signs or symptoms to suggest that this is an epidural abscess or cauda equina. I would treated as a nerve irritation with continue gabapentin, possible steroids, high-dose anti-inflammatories, muscle relaxants. If it does not improve in the next few days and further imaging may be required. I will continue to follow along with him. Subjective Interval history since last seen: Jason is a 43-year-old who I know well for a left psoas abscess and spinal extension of this abscess. He has been on the medicine service as a swing bed patient. Jai has been managed by [facility]. He is currently on a long course of IV antibiotics. Repeat CT scan showed improvement. He reportedly was doing well until yesterday when he developed increasing left pelvic pain. This also went down the leg and he reported numbness and weakness of the left leg. The numbness initially was reported to be in the entire leg but he specifies is primarily the lateral aspect of the thigh and dorsum and lateral aspect of the leg and foot. He also reports weakness of the left leg. This is given out on him now twice. He is using a cane. He also reports pain deep within the pelvis. Any weightbearing or loading of the hip causes pain. Motion of the hip does not hurt as much. He denies any change to his bowel or bladder habits. No new injuries. He does report a decreased sensation throughout the left leg as above. No new fevers or chills. No chest pain or shortness of breath. Exam Narrative Exam Narrative: Laying in the supine position. He seems to be uncomfortable. He is alert and oriented x3. Evaluation of the low back shows generalized pain throughout. There is no step- off and no mass palpated. He does have pain along the midline and along the left side of the low back as well as the right side of the low back without any specific one area of increased pain. He also has exquisite pain to palpation along the left hemipelvis and left abdomen. Pushing down towards the pelvis and along the pelvic brim causes exquisite pain. Likewise actually loading the left hip causes pain. He does tolerate gentle internal and external rotation of the left hip without any significant increase in pain. However, he is unable to st raight leg raise due to pain. His neurovascular examination is interesting. He does report decreased sensation over an L4, L5, and S1 distribution. Is really difficult to hold that in any more specifically. He demonstrates weakness or at least decreased effort with ankle dorsiflexion, ankle plantarflexion, foot eversion, and great toe extension. Negative Babinski. Negative clonus. Objective Objective Clinical Data: Vital Signs Temperature 36.9 C 01/21/19 15:05 Temperature Source Tympanic 01/21/19 15:05 Pulse 85 01/21/19 15:05 Pulse Rhythm Regular 01/21/19 15:22 Respiratory Rate 18 01/21/19 15:05 Respiratory Effort Non-Labored 01/21/19 15:22 Respiratory Depth Normal 01/21/19 15:22 Respiratory Pattern Normal 01/21/19 15:22 Blood Pressure 125/75 01/21/19 15:05 Pulse Oximetry 98 01/21/19 15:05 Oxygen Delivery Method Room Air 01/21/19 15:05 Oxygen Flow Rate 0 01/21/19 15:05 Pain Level 9 01/21/19 15:05 Comment 01/21/19 08:42 Intake & Output 01/20/19 01/21/19 01/21/19 23:59 11:59 23:59 Intake Total 150 / 620 1240 / 1290 50 / 1290 Balance 150 / 620 1240 / 1290 50 / 1290 Intake: IV 150 / 380 200 / 250 50 / 250 Oral 1040 / 1040 Other: Urine Color Yellow Urine Appearance Clear Clear Urine Odor Normal Comment pt voided ad floresita in toilet, urine not assessed at this time Voiding Methods Toilet Laboratory Results WBC 5.06 k/cumm (4.4-10.8) 01/17/19 06:55 RBC 4.40 m/cumm (4.50-6.00) L 01/17/19 06:55 Hgb 11.4 g/dL (13.5-17.5) L 01/17/19 06:55 Hct 36.0 % (40.0-50.0) L 01/17/19 06:55 MCV 81.8 fL (80-95) 01/17/19 06:55 MCH 25.9 pg (27.0-33.0) L 01/17/19 06:55 MCHC 31.7 g/dL (32.0-36.0) L 01/17/19 06:55 RDW 15.8 % (11.8-14.1) H 01/17/19 06:55 Plt Count 218 x1000/uL (130-400) 01/17/19 06:55 MPV 9.2 fL (8.0-11.0) 01/17/19 06:55 Immature Gran % 0.5 01/05/19 10:40 Neutrophils % 52.2 01/05/19 10:40 Lymphocytes % 35.7 01/05/19 10:40 Monocytes % 8.1 01/05/19 10:40 Eosinophils % 3.1 01/05/19 10:40 Basophils % 0.4 01/05/19 10:40 Absolute Neutrophils 4.42 k/cumm (1.2-6.7) 01/05/19 10:40 Absolute Lymphocytes 3.01 k/cumm (1.2-3.4) 01/05/19 10:40 Absolute Monocytes 0.68 k/cumm (0.11-0.7) 01/05/19 10:40 Absolute Eosinophils 0.26 k/cumm (0.0-0.7) 01/05/19 10:40 Absolute Basophils 0.03 k/cumm (0.0-0.2) 01/05/19 10:40 ESR 51 MM/HR (0-15) H 01/17/19 06:55 Sodium 139 mmol/L (136-145) 01/19/19 06:54 Potassium 4.2 mmol/L (3.5-5.1) 01/19/19 06:54 Chloride 104 mmol/L (98-107) 01/19/19 06:54 Carbon Dioxide 26.7 mmol/L (21.0-32.0) 01/19/19 06:54 Anion Gap 8.3 mmol/L (3-11) 01/19/19 06:54 BUN 17 mg/dL (7-18) 01/19/19 06:54 Creatinine 1.02 mg/dL (0.70-1.30) 01/19/19 06:54 Estimated GFR/1.73 m2 >= 60.00 (mL/min/1.73m2) 01/19/19 06:54 Glucose 141 mg/dL (70-100) H 01/19/19 06:54 Calcium 8.8 mg/dL (8.5-10.1) 01/19/19 06:54 Magnesium 2.1 mg/dL (1.8-2.4) 01/12/19 06:40 Total Bilirubin 0.2 mg/dL (0.2-1.0) 01/19/19 06:54 Conjugated Bilirubin 0.06 mg/dL (0.00-0.20) 01/19/19 06:54 AST 19 U/L (15-37) 01/19/19 06:54 ALT 25 U/L (12-78) 01/19/19 06:54 Alkaline Phosphatase 127 U/L (46-116) H 01/19/19 06:54 C-Reactive Protein 1.66 mg/dL (0.0-0.3) H 01/17/19 06:55 Total Protein 7.1 g/dL (6.4-8.2) 01/19/19 06:54 Albumin 3.2 g/dL (3.4-5.0) L 01/19/19 06:54 25-OH Vitamin D Total 11.0 ng/ml (30-100) L 01/12/19 06:30 TSH 1.30 uIU/mL (0.358-3.74) 01/12/19 06:30 Urine Color [place] (Yellow) 01/05/19 15:50 Urine Clarity Clear 01/05/19 15:50 Urine pH 6.5 (5-8) 01/05/19 15:50 Ur Specific [place] 1.020 (1.005-1.025) 01/05/19 15:50 Urine Protein 100 mg/dL (Negative) H 01/05/19 15:50 Urine Ketones Trace mg/dL (Negative) H 01/05/19 15:50 Urine Blood Negative (Negative) 01/05/19 15:50 Urine Nitrite Positive (Negative) H 01/05/19 15:50 Urine Bilirubin Negative (Negative) 01/05/19 15:50 Urine Urobilinogen 1.0 EU/dL (Up TO 0.2) H 01/05/19 15:50 Ur Leukocyte Esterase Negative (Negative) 01/05/19 15:50 Urine RBC Negative (0-2) 01/05/19 15:50 Urine WBC 0-2 HPF (0-5) 01/05/19 15:50 Ur Epithelial Cells Negative HPF (Negative) 01/05/19 15:50 Urine Crystals Negative HPF (Negative) 01/05/19 15:50 Urine Bacteria Moderate HPF (Negative) 01/05/19 15:50 Urine Casts Negative LPF (Negative) 01/05/19 15:50 Urine Mucus Trace (Negative) 01/05/19 15:50 Urine Other Negative (Negative) 01/05/19 15:50 Ur Culture Indicated? No 01/05/19 15:50 Urine Glucose 100 mg/dL (Negative) 01/05/19 15:50 Urine Opiates Screen Positive (Negative) 01/20/19 14:55 Urine Methadone Screen Negative (Negative) 01/20/19 14:55 Ur Barbiturates Screen Negative (Negative) 01/20/19 14:55 Ur Tricyclics Screen Negative (Negative) 01/20/19 14:55 Ur Amphetamines Screen Negative (Negative) 01/20/19 14:55 U Benzodiazepines Scrn Negative (Negative) 01/20/19 14:55 Urine Cocaine Screen Negative (Negative) 01/20/19 14:55 Ur THC Screen Negative (Negative) 01/20/19 14:55
[2019-01-21] MEDS: OLANZapine 5 MG TAB PO (16:59)
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
--- NOTE | 2019-01-21 21:41 | PDOC.CMPRO ---
- If Service Date Differs Date of service: 01/21/19 Time of Service: 21:42 Care Management Progress Note S/O: Jason was changed to acute status r/t increase pain in his left hip, gait instability and increased symptoms of paranoid thoughts. Mental health did evaluate please see note. Jason denies SI at this time and agreed to medication adjustment to manage his pain symptoms and his mental health. Plan will be to change his status to SB1 when he is medically cleared. Jason is advocating for going outside he states this calms him. He agrees to remain acute overnight while he continues to be monitored and medications continue to be adjusted to treat symptoms. CM huddled with RN CC, RN career technical supervisor and Provider to update and review plan. A: Jason is a 43 year old male admitted for abscess and IV antibiotics changed to acute status from SB1 for concerns SI, increase pain and gait disturbance. P: Acute status change today plan will be for Jason to return to Sb1 when medically ready and continue IV antibiotics for the 4 week duration. Mental health has agreed to provide support as needed as well as continues to consult and assist with medications management.
--- NOTE | 2019-01-21 21:50 | CMPROGNOTE_ITS ---
- If Service Date Differs Date of service: 01/21/19 Time of Service: 21:42 Care Management Progress Note S/O: Jason was changed to acute status r/t increase pain in his left hip, gait instability and increased symptoms of paranoid thoughts. Mental health did evaluate please see note. Jason denies SI at this time and agreed to medication adjustment to manage his pain symptoms and his mental health. Plan will be to change his status to SB1 when he is medically cleared. Jason is advocating for going outside he states this calms him. He agrees to remain acute overnight while he continues to be monitored and medications continue to be adjusted to treat symptoms. CM huddled with RN CC, RN brick chimney supervisor and Provider to update and review plan. A: Jason is a 43 year old male admitted for abscess and IV antibiotics changed to acute status from SB1 for concerns SI, increase pain and gait disturbance. P: Acute status change today plan will be for Jason to return to Sb1 when medically ready and continue IV antibiotics for the 4 week duration. Mental health has agreed to provide support as needed as well as continues to consult and assist with medications management.
== END 2019-01-21 17:19 | disposition short-term general hospital (02) | DRG 372 ==
PROVIDERS: Nurse Practitioner; Admitting Provider Internal Medicine; PCP Nurse Practitioner Family; Visit Provider Internal Medicine
DX: K68.12 Psoas muscle abscess (principal); R45.851 Suicidal ideations; Z79.2 Long term (current) use of antibiotics; R31.9 Hematuria, unspecified; F32.9 Major depressive disorder, single episode, unspecified; F41.9 Anxiety disorder, unspecified; G89.29 Other chronic pain; I10 Essential (primary) hypertension; M54.10 Radiculopathy, site unspecified; R26.81 Unsteadiness on feet; S09.90XA Unspecified injury of head, initial encounter; W19.XXXA Unspecified fall, initial encounter; F22 Delusional disorders; K21.9 Gastro-esophageal reflux disease without esophagitis; E78.5 Hyperlipidemia, unspecified; Z87.820 Personal history of traumatic brain injury; F43.10 Post-traumatic stress disorder, unspecified; F31.9 Bipolar disorder, unspecified; F17.210 Nicotine dependence, cigarettes, uncomplicated; F19.11 Other psychoactive substance abuse, in remission; E55.9 Vitamin D deficiency, unspecified; Z45.2 Encounter for adjustment and management of vascular access device
CPT/HCPCS: 80048; 80053; 80076; 80307; 82306; 85027; 85652; 87040; 99232; 99233; 99239; 99253; 99305; 99308; 99309; NC; 70450; 72125; 74177; 81003; 81015; 83735; 84443; 85025; 86140; 99231; J1885; J2060; J2700; J3490; J7509; Q9967

== ENCOUNTER 2019-01-21 17:08 | Inpatient (IN) | payer MEDICARE, MEDICAID, SELFPAY ==
[2019-01-21] MEDS: Ketorolac 15 MG/ML VIAL IVP (17:40)
[2019-01-21] MEDS: Normal Saline Flush 10 ML SYR IVP ×2 (17:43→21:37)
--- NOTE | 2019-01-21 17:46 | HPE_ITS ---
Date of service: 01/21/19 Time of Service: 17:41 Assessment and Plan (1) Suicidal ideation: Current visit: Yes Status: Acute Verbalizing suicidal ideation with a plan to end his life when he leaves the hospital. Mental health consulted. Concern that his increasing anxiety and paranoia could represent a manic prodrome. Discussed with Dr. Gilbert, she recommends Zyprexa 5 mg now and at HS. Consider Haldol if needed. Mental health consult pending. Will likely need 1:1 patient observer. (2) Psoas abscess, left: Current visit: No Status: Acute Continue IV Oxacillin, origninal end date was 01/24. CT scan shows improvement, most recent CRP improved at 1.66. Dr. Connell spoke with TERRI Hernandes at [facility], who recommends that Mr Cuevas stay on IV oxacillin for up to 12 weeks. The end date will be determined by plateauing of ESR/CRP, which should be checked weekly. He will need to remain on chronic suppressive doxycycline after the completion of the IV antibiotics. The patient was also recommended to be in rifampin in addition to oxacillin if he can tolerate due to the hardware involvement in his back. The patient reports having GI upset when he was previously on Rifampin, however, he is willing to try it again. He was taking Rifampin 300 mg BID at [facility] previously. He has completed therapy for hepatitis C. We will recheck his LFT's - these will also need to be trended weekly while on rifampin. Finally, the patient may not have to have any more imaging, unless his CRP starts to go up. His imaging will likely never normalize. Continue to follow weekly ESR, CRP, add LFTs if he resumes Rifampin. (3) Anxiety: Current visit: No Status: Chronic He is followed by Dr. Gilbert, Psychiatry. His case was discussed with Dr. Gilbert given his increased anxiety and concern that he could potentially be beginning a manic epidsode. She recommends treating his anxiety with ativan PRN initially and then recommended that we added Zyprexa and decrease Cymbalta. Transition to acute care. Continue to monitor closely. Dr. Gilbert will continue to follow his case. (4) Chronic pain: Current visit: No Status: Chronic In the setting of psoas abscess and with history of substance abuse. There was a plan to actively decrease his oxycodone use while titrating a fentanyl patch, however, he did not do well with this transition and the fentanyl patch was ultimately discontinued last week. He continues on oxycodone at this time. Continue to monitor. Consider decreasing oxycodone as his abscess/wound improved. Pain appears to be increased, with ortho in agreement, he was started on medrol dosepak and toradol. Offered gabapentin, however he refused stating gabapentin increased his RLS in the past. (5) Hypertension: Current visit: No Status: Chronic Continue clonidine patch, amlodipine and pain control. (6) Fall: Current visit: No Status: Acute Mr. Cuevas fell 01/19/19 and struck his head and neck. He had a CT head and cervical spine which were normal. There is concerned that he could have possibly sustained a concussion. His neurological checks have been normal. Continue to monitor closely. (7) DVT prophylaxis: Current visit: No Status: Acute Chemical DVT prophylaxis not indicated in a 43 year old patient that ambulates frequently throughout the day. (8) Discharge planning issues: Current visit: No Status: Acute Disposition unclear at this time. This case was discussed with Dr. Connell who is in agreement. History of Present Illness Chief Complaint: Anxiety, suicidal ideation, LLE weakness, gait instability. Narrative: Mr. Cuevas is a 43 year old man who has been here on swing bed status for IV Oxacillin for left psoas abscess. He appears to be improving from that standpoint as his CRP was down to 1.66 on most recent lab work. He also had a CT abdomen/pelvis which showed improvement. Dr. Connell spoke with TERRI Hernandes at [facility], who recommends that Mr Cuevas stay on IV oxacillin for up to 12 weeks. The end date will be determined by plateauing of ESR/CRP, which should be checked weekly. He will need to remain on chronic suppressive doxycycline after the completion of the IV antibiotics. The patient was also recommended to be in rifampin in addition to oxacillin if he can tolerate due to the hardware involvement in his back. Unfortunately, he has been reporting increased pain, weakness, numbness and tingling in his LLE. He actually fell on 01/19/19, he reported that his LLE gave out, he went on to have a CT head and neck which were normal. He was seen by Dr. Restrepo, Orthopedics, who agrees that this pain appears to be radiculopat hy. He agreed with starting medrol dosepak, he also recommended scheduled toradol and muscle relaxers. Jason refuses muscle relaxers, but agrees to trial steroids and NSAIDS. He describes the pain as electric, and he was offered gabapentin but he refused due to it causing restless leg syndrome. PT has been consulted to work on strengthening of the LLE and balance. In addition, he has been increasingly more anxious and showing signs of paranoia. Yesterday, he verbalized concern that his food was being tapered with and that nurses were laughing at him. He has not been sleeping well. There are concerns the increased anxiety and changing mood could represent a manic prodrome. He went on to verbalize suicidal ideation and stating that when he left the hospital he was going to leave the area and end his life. His case was discussed with Dr. Gilbert who initially recommended ativan, however when his symptoms progressed today and appeared to be possibly related to his underlying bipolar, she recommended initiating olanzapine today. Jason was agreeable to trying olanzapine. Given his suicidal ideation with seemingly unstable mental status as well as increased anxiety and unsteady gait, it was determined that it was not safe for him to be going outside alone. It was determined that it was in his best interest to have a mental health evaluation mental health was consulted. Mental health consult pending. He transitioned back to acute status for his safety and mental health evaluation as well as physical therapy and stabilization of his underlying mood disorder. Review of Systems Review of Systems He endorses feeling anxious and having panic attacks. He does not want to be on acute status, he wants to go outside. At this time he states he will not kill himself while he is a patient here. He continues to have LLE pain, described as electric, weakness, numbness and tingling. He denies any other concerns such as chest pain/pressure, palpitations, shortness of breath, coughing, wheezing, nausea, vomiting, diarrhea. [facility] Social History Smoking/Tobacco Use Status: Current every day Tobacco Type: cigarettes Alcohol Intake: never Drug use: Never Substance use type: does not use and former substance user Details: Hx drug abuse Do you feel safe at home: Yes Do you feel safe in your relationship?: Yes Meds Home Medications Medication Instructions Recorded Confirmed Type amlodipine 5 mg PO DAILY #30 tab 09/29/18 01/04/19 Rx docusate sodium [Colace] 100 mg PO BID #60 cap 09/29/18 01/04/19 Rx pantoprazole 40 mg PO BID@0730,2000 #60 tab 09/29/18 01/04/19 Rx ibuprofen [IBU] 800 mg PO TID PRN #90 tab 11/13/18 01/04/19 Rx clonidine See Rx Instructions .ROUTE .COMPLEX 12/16/18 01/04/19 History acidophilus-pectin, citrus 1 cap PO TID #30 tab 12/24/18 01/04/19 Rx duloxetine [Cymbalta] 30 mg PO DAILY #14 cap 12/24/18 01/04/19 Rx lidocaine [Lidoderm] 1 patch TOPICAL QAM #30 each 12/24/18 01/04/19 Rx oxacillin 2,000 mg IV Q4H 31 Days each 12/24/18 01/04/19 Rx oxycodone 30 mg PO Q4H #60 tab MDD 180mg 12/24/18 01/04/19 Rx Allergies Allergy/AdvReac Type Severity Reaction Status Date / Time No Known Allergies Allergy Verified 12/27/18 10:45 Exam Narrative Exam Narrative: General: sitting in bed, appears anxious, in no acute distress. Answers questions appropriately. Speech is clear, stutters at times. HEENT: normocephalic, atraumatic, pupils equal and round reactive to light, EOMI, mucous membranes moist, tongue protrudes midline, palate rises midline. Psych: appears anxious, not verbalizing paranoid thoughts at this time. Respiratory: Respirations even and unlabored, lung sounds clear bilaterally Cardiac: Heart has regular rate and rhythm, no murmur appreciated. GI: normoactive bowel sounds, abdomen nondistended, tenderness on palpation of RUQ, mild left CVA tenderness Extremities: No clubbing, cyanosis or edema. LLE with approximately 1 cm open area at center of healed incision, draining small amount of dark, bloody drainage.
[2019-01-21] MEDS: methylPREDNISolone 4 MG TAB PO (18:03)
--- NOTE | 2019-01-21 18:09 | NUR.NOTE ---
Nursing Note: Pt received verbally upset for his status be changed to acute. He was so much concern of not going out anymore and stated that if that is the case he will go AMA. set up and charger made aware and mental health staff spoke to him. Medicated with oxycodone and lorazepam as requested, new order of zyprexa po also given. Pt encouraged to find activities that will divert him while awake in the room.Tried to play on his phone at this time while IV Atbx infusing. PICC lines flushed and with good blood return. Pain well managed at the moment.
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
--- NOTE | 2019-01-21 18:12 | PDOC.MHCN ---
Date of service: 01/21/19 Time of Service: 18:12 Mental Health Crisis Note Presenting Issue How did you arrive at the ED and why did you come: Jason has been at [facility] for several weeks for medical reasons. This past Thursday, he fell in the shower and hit his head. Since then, he has become more and more paranoid and has reportedly made suicidal statements. [facility] contact [facility] emergency services and request an evaluation of Jason. Precipitating Factors Jason denies current suicidal ideation. He admits to depression and to having had suicidal thoughts in the past. He states that he is currently in a lot of pain but he is hopeful that by the time he is discharged from the hospital, things will be better for him. He adds that he would not harm himself while in the hospital and would not hurt himself out there and points to a window. Jason is experiencing some paranoia, believing that staff are watching him through the television set and putting medications in his food. Disposition BEHAVIOR: Cooperative. EYE CONTACT: Good. MOOD: Depressed. AFFECT: Irritable and paranoid. APPETITE: Unknown. SLEEP(trouble falling/staying asleep: Unknown. Plan Jason does not meet criteria for involuntary hospitalization at this time. However, if his mental status continues to deteriorate, he will be reassessed and the consideration will be made for an EE at that time. Signature Clinician's Name/Title: Luz Licona, [facility] Steam Conditioner Filling
--- NOTE | 2019-01-21 18:23 | PDOC.MHCN_ITS ---
Date of service: 01/21/19 Time of Service: 18:12 Mental Health Crisis Note Presenting Issue How did you arrive at the ED and why did you come: Jason has been at [facility] for several weeks for medical reasons. This past Thursday, he fell in the shower and hit his head. Since then, he has become more and more paranoid and has reportedly made suicidal statements. [facility] contact [facility] emergency services and request an evaluation of Jason. Precipitating Factors Jason denies current suicidal ideation. He admits to depression and to having had suicidal thoughts in the past. He states that he is currently in a lot of pain but he is hopeful that by the time he is discharged from the hospital, things will be better for him. He adds that he would not harm himself while in the hospital and would not hurt himself out there and points to a window. Jason is experiencing some paranoia, believing that staff are watching him through the television set and putting medications in his food. Disposition BEHAVIOR: Cooperative. EYE CONTACT: Good. MOOD: Depressed. AFFECT: Irritable and paranoid. APPETITE: Unknown. SLEEP(trouble falling/staying asleep: Unknown. Plan Jason does not meet criteria for involuntary hospitalization at this time. However, if his mental status continues to deteriorate, he will be reassessed and the consideration will be made for an EE at that time. Signature Clinician's Name/Title: Luz Licona, [facility] Radiation Control Health Physicist
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
[2019-01-21 20:05] VITALS: BP 124/74; PULSE 98; RESP 19; TEMP 36.4; O2SAT 97
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
[2019-01-21] MEDS: Acetaminophen 500 MG TAB 1000 MG PO (21:27)
[2019-01-21] MEDS: Docusate Sodium 100 MG CAP PO (21:27)
[2019-01-21] MEDS: Phenazopyridine 200 MG TAB PO (21:27)
[2019-01-21] MEDS: Pantoprazole 40 MG TABCR PO (21:28)
[2019-01-21] MEDS: Lactobacillus Acidophilus CAP 1 CAP PO (21:28)
[2019-01-21] MEDS: DULoxetine 30 MG CAP PO (21:29)
[2019-01-21] MEDS: OLANZapine 5 MG TAB PO (21:29)
[2019-01-21] MEDS: methylPREDNISolone 4 MG TAB 8 MG PO (21:29)
[2019-01-21] MEDS: oxyCODONE 15 MG TAB 30 MG PO (22:39)
[2019-01-22] MEDS: Ketorolac 15 MG/ML VIAL IVP ×5 (01:00→23:44)
[2019-01-22 01:06] VITALS: BP 114/70; PULSE 94; RESP 17; TEMP 36.4; O2SAT 95
[2019-01-22] MEDS: oxyCODONE 15 MG TAB 30 MG PO ×5 (05:17→21:30)
[2019-01-22 05:26] VITALS: BP 171/102
--- NOTE | 2019-01-22 06:33 | NUR.NOTE ---
Nursing Note: pt refused his PICC line being wrapped this morning. This headline writer explained that we were suppose to wrap his PICC line when he was not getting his abx. Pt stated I am not going outside any more, it does not need to be wrapped. He then proceeded to go back to bed. Will continue to monitor.
[2019-01-22 07:07] LABS: HCT 35.9 % (40.0-50.0); HGB 11.3 g/dL (13.5-17.5); Mean Corp. HGB Concentration 31.5 g/dL (32.0-36.0); Mean Corpuscular Hemoglobin 25.9 pg (27.0-33.0); Mean Corpuscular Volume 82.2 fL (80-95); Mean Platelet Volume 8.9 fL (8.0-11.0); Platelet Count 224 x1000/uL (130-400); RBC 4.37 m/cumm (4.50-6.00); RBC Distribution Width 16.3 % (11.8-14.1); White Blood Cell Count 7.56 k/cumm (4.4-10.8)
[2019-01-22 07:22] LABS: ALT 24 U/L (12-78); AST 16 U/L (15-37); Albumin 3.3 g/dL (3.4-5.0); Alkaline Phosphatase 134 U/L (46-116); Anion Gap 9.6 mmol/L (3-11); BUN 20 mg/dL (7-18); Bilirubin, Total 0.2 mg/dL (0.2-1.0); CO2 27.4 mmol/L (21.0-32.0); CREATININE 0.96 mg/dL (0.70-1.30); Calcium 8.7 mg/dL (8.5-10.1); Chloride 108 mmol/L (98-107); Glucose 134 mg/dL (70-100); Sodium 145 mmol/L (136-145); Total Protein 7.4 g/dL (6.4-8.2)
[2019-01-22] MEDS: Pantoprazole 40 MG TABCR PO ×2 (08:29→20:47)
[2019-01-22] MEDS: Lisinopril 10 MG TAB PO (08:29)
[2019-01-22] MEDS: Docusate Sodium 100 MG CAP PO ×2 (08:29→20:46)
[2019-01-22] MEDS: Phenazopyridine 200 MG TAB PO ×3 (08:29→20:47)
[2019-01-22] MEDS: amLODIPine 10 MG TAB PO (08:29)
[2019-01-22] MEDS: Lactobacillus Acidophilus CAP 1 CAP PO ×3 (08:29→20:46)
[2019-01-22] MEDS: Cholecalciferol (Vitamin D3) 1,000 UNIT TAB 1000 UNITS PO (08:29)
[2019-01-22] MEDS: methylPREDNISolone 4 MG TAB PO ×3 (08:30→17:03)
[2019-01-22] MEDS: Normal Saline Flush 10 ML SYR IVP ×6 (10:07→23:44)
[2019-01-22 10:30] VITALS: BP 146/86; PULSE 86; RESP 18; TEMP 36.6; O2SAT 95
[2019-01-22 10:53] VITALS: O2SAT 95
[2019-01-22 11:11] LABS: ESR 52 MM/HR (0-15)
--- NOTE | 2019-01-22 11:22 | PT.INNT ---
Date of service: 01/22/19 PT Notes Orders for consult for this patient. This therapist arrived in the room with staff member Maryann Moreno PTA. Patient was asked if they would be willing to participate in a brief Physical Therapy assessment of their function. Patient refused to participate in physical therapy services at this time. When this therapist asked if he would like to be seen a little later today for treatment the patient replied How about in 10 days. At this point this therapist and FRONT END LOADER OPERATOR left the room and informed the patient we would try again at some point most likely tomorrow morning.
--- NOTE | 2019-01-22 11:25 | NT_ITS ---
Date of service: 01/22/19 PT Notes Orders for consult for this patient. This therapist arrived in the room with staff member Maryann Moreno PTA. Patient was asked if they would be willing to participate in a brief Physical Therapy assessment of their function. Patient refused to participate in physical therapy services at this time. When this therapist asked if he would like to be seen a little later today for treatment the patient replied How about in 10 days. At this point this therapist and TELECOM MANAGER left the room and informed the patient we would try again at some point most likely tomorrow morning.
--- NOTE | 2019-01-22 12:02 | PDOC.CMPRO ---
Care Management Progress Note Jason refused PT when PT attempted to meet with him. Behavioral Plan will be required prior to Jason re-entering swing bed as his behaviors warrant. CM checked in with Jason who reported he would be agreeable to working with PT moving forward, he reported he did not feel he required the service but verbalized weakness in his leg and acknowledged purpose for order. Jason also reported I will be going outside today. He walked independently with his cane into the office looking for card games to play with a friend's eleven year old son who he reported would be coming to visit him tomorrow. CM huddled with Katarina DELGADILLO and MARYBETH Jacob to discuss miscellaneous order entered by Nidia for Jason to be permitted to ambulate outside with [facility] staff escort. Order in place to support Jason to utilize coping skills appropriately and provide motivation to follow behavioral expectations. Per Nidia, Jason was considering leaving AMA. CM requested huddle to ensure Katarina was aware of order and could pass along information to M/S staff. Teri reported Heather WEAVER was present during Nidia and Jason's conversation and was aware of the order. MARYBETH Jacob reports Jason will likely return to swing bed status tomorrow, after he is evaluated by PT.
[2019-01-22] MEDS: Acetaminophen 500 MG TAB 1000 MG PO ×2 (12:05→20:45)
--- NOTE | 2019-01-22 13:15 | PGE_ITS ---
Date of Service Date of service: 01/22/19 Time of Service: 13:16 Assessment and Plan (1) Suicidal ideation: Start date: 01/22/19 Start time: 13:34 Current visit: Yes Status: Acute Today he is stating he is not having SI. He has no plan to harm himself he is just tired. (2) Psoas abscess, left: Start date: 01/22/19 Start time: 13:35 Current visit: No Status: Acute Continue IV Oxacillin, origninal end date was 01/24. CT scan shows improvement, most recent CRP improved at 1.34. Dr. Connell spoke with TERRI Hernandes at [facility], who recommends that Mr Cuevas stay on IV oxacillin for up to 12 weeks. The end date will be determined by plateauing of ESR/CRP, which should be checked weekly. He will need to remain on chronic suppressive doxycycline after the completion of the IV antibiotics. The patient was also recommended to be in rifampin in addition to oxacillin if he can tolerate due to the hardware involvement in his back. The patient reports having GI upset when he was previously on Rifampin, however, he is willing to try it again. He was taking Rifampin 300 mg BID at [facility] previously. He has completed therapy for hepatitis C. We will recheck his LFT's - these will also need to be trended weekly while on rifampin. Finally, the patient may not have to have any more imaging, unless his CRP starts to go up. His imaging will likely never normalize. Continue to follow weekly ESR, CRP, add LFTs if he resumes Rifampin. (3) Anxiety: Start date: 01/22/19 Start time: 13:35 Current visit: No Status: Chronic He is followed by Dr. Gilbert, Psychiatry. His case was discussed with Dr. Gilbert given his increased anxiety and concern that he could potentially be beginning a manic epidsode. He is complaining the zyprexa make him feel to tired and he does not like it. He has agreed to try it at a lower dose. It has been decreased to 2.5 (4) Chronic pain: Start date: 01/22/19 Start time: 13:36 Current visit: No Status: Chronic In the setting of psoas abscess and with history of substance abuse. There was a plan to actively decrease his oxycodone use while titrating a fentanyl patch, however, he did not do well with this transition and the fentanyl patch was ultimately discontinued last week. He continues on oxycodone at this time. Continue to monitor. Consider decreasing oxycodone as his abscess/wound improved. He does not appear in pain at this time. (5) Hypertension: Start date: 01/22/19 Start time: 13:36 Current visit: No Status: Chronic Continue clonidine patch, amlodipine and pain control. (6) Fall: Start date: 01/22/19 Start time: 13:37 Current visit: No Status: Acute Mr. Cuevas fell 01/19/19 and struck his head and neck. He had a CT of the head and cervical spine which were normal. He c/o pain to his head today, continue to monitor. (7) DVT prophylaxis: Current visit: No Status: Acute Chemical DVT prophylaxis not indicated in a 43 year old patient that ambu lates frequently throughout the day. (8) Discharge planning issues: Start date: 01/22/19 Start time: 13:38 Current visit: No Status: Acute Disposition unclear at this time. Subjective Interval history since last seen: Mr. Cuevas is feeling sleepy today. He does not like the new medication he feels it makes him sleepy. He denies suicidal ideation today. He wants to go outside and be changed to Swing bed. PT needs to evaluate him tomorrow am, as he refused today. He would not cooperate this am with this provider and when he would cooperate he tried to be argumentative and deny SI or leg weakness. However he did tell CM this am he would work with PT because he was feeling weaker. He also asked that the zyprexa be given earlier. It has been rescheduled for 830 pm and he would like to go outside. He was threatening to leave AMA if he was not placed back on swing bed. He agreed to stay on acute if he could go outside with staff. He denies chest pain, SOB, n/v/d. Exam Narrative Exam Narrative: Const: Anxious, lying in bed c/o being tired Neck: no lymphadenopathy Resp: Clear to all bases Cardio: RRR, no gallop or murmur appreciated. GI: soft nontender, nondistended Skin: intact. Neuro: AAOx 3 Objective Objective Clinical Data: Abnormal lab results 01/22/19 01/22/19 Range/Units 06:50 06:50 RBC 4.37 L (4.50-6.00) m/cumm Hgb 11.3 L (13.5-17.5) g/dL Hct 35.9 L (40.0-50.0) % MCH 25.9 L (27.0-33.0) pg MCHC 31.5 L (32.0-36.0) g/dL RDW 16.3 H (11.8-14.1) % ESR 52 H (0-15) MM/HR Chloride 108 H (98-107) mmol/L BUN 20 H (7-18) mg/dL Glucose 134 H (70-100) mg/dL Alkaline Phosphatase 134 H (46-116) U/L C-Reactive Protein 1.30 H (0.0-0.3) mg/dL Albumin 3.3 L (3.4-5.0) g/dL Vital Signs Temperature 36.6 C 01/22/19 10:30 Temperature Source Tympanic 01/22/19 10:30 Pulse 86 01/22/19 10:30 Pulse Rhythm Regular 01/22/19 01:00 Respiratory Rate 18 01/22/19 10:30 Respiratory Effort 01/22/19 08:35 Respiratory Depth Normal 01/22/19 08:35 Respiratory Pattern Normal 01/22/19 08:35 Blood Pressure 146/86 H 01/22/19 10:30 Pulse Oximetry 95 01/22/19 10:53 Oxygen Delivery Method Room Air 01/22/19 10:53 Oxygen Flow Rate 0 01/22/19 10:53 Pain Level 8 01/22/19 12:06 Comment 01/22/19 07:25 Intake & Output 01/21/19 01/22/19 01/22/19 23:59 11:59 23:59 Intake Total 760 / 760 650 / 650 Balance 760 / 760 650 / 650 Weight 136.9 kg Intake: IV 100 / 100 170 / 170 Oral 660 / 660 480 / 480 Other: Comment patient uses toilet on his own and states that he is has been voiding Pt voiding ad floresita in toilet. Urine not seen at this time. Pt denies sx. Voiding Methods Toilet Toilet Laboratory Results WBC 7.56 k/cumm (4.4-10.8) 01/22/19 06:50 RBC 4.37 m/cumm (4.50-6.00) L 01/22/19 06:50 Hgb 11.3 g/dL (13.5-17.5) L 01/22/19 06:50 Hct 35.9 % (40.0-50.0) L 01/22/19 06:50 MCV 82.2 fL (80-95) 01/22/19 06:50 MCH 25.9 pg (27.0-33.0) L 01/22/19 06:50 MCHC 31.5 g/dL (32.0-36.0) L 01/22/19 06:50 RDW 16.3 % (11.8-14.1) H 01/22/19 06:50 Plt Count 224 x1000/uL (130-400) 01/22/19 06:50 MPV 8.9 fL (8.0-11.0) 01/22/19 06:50 ESR 52 MM/HR (0-15) H 01/22/19 06:50 Sodium 145 mmol/L (136-145) 01/22/19 06:50 Potassium 4.0 mmol/L (3.5-5.1) 01/22/19 06:50 Chloride 108 mmol/L (98-107) H 01/22/19 06:50 Carbon Dioxide 27.4 mmol/L (21.0-32.0) 01/22/19 06:50 Anion Gap 9.6 mmol/L (3-11) 01/22/19 06:50 BUN 20 mg/dL (7-18) H 01/22/19 06:50 Creatinine 0.96 mg/dL (0.70-1.30) 01/22/19 06:50 Estimated GFR/1.73 m2 >= 60.00 (mL/min/1.73m2) 01/22/19 06:50 Glucose 134 mg/dL (70-100) H 01/22/19 06:50 Calcium 8.7 mg/dL (8.5-10.1) 01/22/19 06:50 Total Bilirubin 0.2 mg/dL (0.2-1.0) 01/22/19 06:50 AST 16 U/L (15-37) 01/22/19 06:50 ALT 24 U/L (12-78) 01/22/19 06:50 Alkaline Phosphatase 134 U/L (46-116) H 01/22/19 06:50 C-Reactive Protein 1.30 mg/dL (0.0-0.3) H 01/22/19 06:50 Total Protein 7.4 g/dL (6.4-8.2) 01/22/19 06:50 Albumin 3.3 g/dL (3.4-5.0) L 01/22/19 06:50
--- NOTE | 2019-01-22 13:17 | PHARADMIT ---
Addendum entered by Francesco Luis III 01/22/19 13:18: PATIENT WAS CHANGED TO ACUTE AFTER FALL AND HEAD INJURY. ZYPREXA WAS ORDERED LAST NIGHT (5MG) AND SUBSEQUENTLY DECREASED TO 2.5MG TODAY. VS-OK LABS-wnl oxacillin 2gm iv q4hrs for another 6 weeks. Original Note: Admission Pharmacy Clinical Review BELOW IS THE SWING BED ACCOUNT PHARMACY CLINICAL INTERVENTIONS: TRISTIAN NORWOOD Male : 1975 Emr# [id number] 01/07/19 15:47 - Pharmacy Review by Francesco uLis III Acct Num: [id number] : 1975 Patient Age: 43 Addendum entered by Francesco Luis III 01/21/19 14:30: Pharmacy Note [facility] No Labs Per [facility] infectious Disease, patient Oxacilin end date extended another four weeks. Adding Rifampin was discussed, (watch LFTs if ordered) Patient had fall, and has been set back a bit, lower extremety weakness. Medrol Dosepak and IV Toradol stated for pain. Ibuprofen on hold Addendum entered by Francesco Luis III 01/21/19 14:29: Addendum entered by Dary Rivera 01/12/19 12:14: swingbed for IV oxacillin for 6 weeks, initiated on 12/13/2018, with end date of 01/24. BP-135/92 other VS okay, labs okay ESR-47(down) lisinopril started on 01/10 fentanyl patch discontinued and oxycodone changed back to 30 mg oxycodone q4h PRN, as the fentanyl and decreased oxycodone was not working for the pt and the pt was going into withdrawals per nursing report; pt had too much pain to get out of bed this morning and refused the lidocaine patch last night per morning report Addendum entered by Susannah Aguirre 01/08/19 10:17: pt swingbed Continue IV Oxacillin for a planned course of 6 weeks, initiated on 12/13/2018, with end date of 01/24. pain meds to be adjusted. plan was for fentanyl patch start and possibly increased and PO oxycodone to be decreased duloxetine dose increased to 60mg Original Note: Admission Pharmacy Clinical Review LEFT PSOAS ABSCESS 9chronioc pain) Code Status Full Code Current Weight Wgt-136.9 kg Renally Cleared and Narrow Therapeutic Index Meds CrCl~ 95 mL/min Meds-OK QTc Value / Action Taken none current BP Control, Fever BP-177/105 Tmax- 36.7C Electrolytes reviewed Na- 140 K+3.3 Mag-2.0 DVT Prophylaxis None Opiate Usage / Scheduled Bowel Regimen Ordered Yes Yes Plt/SCr for Heparin / Enoxaparin Plts-257 SCr-1.15 INR for Warfarin na H/H stable, WBC/Bands H&H- 12.3/38.6 WBC- 8.44 Antibiotic appropriateness Oxacillin Cultures and Sensitivities Blood cultures-Cancelled Surgical ABX d/c within 24 hr na DM control / Insulin Dosing BG- 102 Heart Failure (Check EF%) (PAMELA's, B-Block, Diuretics) Norvasc, Catapres tts, IV to PO Switch No Home Meds Reviewed Yes Home Meds Not Ordered Ordered Comments Has Duragesic & Lidoderm PAtches, Oxycodone APAP & iBUPROFEN FOR PAIN Initialized on 01/07/19 15:47 - END OF NOTE
[2019-01-22 15:31] VITALS: BP 128/75; PULSE 85; RESP 18; TEMP 36.7; O2SAT 96
--- NOTE | 2019-01-22 17:16 | NUR.NOTE ---
Nursing Note: Pt drowsy and suspicious of staff at beginning of shift today. Over the course of the day, pt appeared to relax somewhat and became more conversant and at his 'baseline' in terms of mentation and interactions. Pt was hostile with [employer] but following discussion (regarding SB status, medication adjustments, and leaving the hospital), pt calmed and became pleasant. Pt did leave floor in a w/c with two aides per order. Pain continues to be an issue for pt; oxycodone Q4H and scheduled pain medications administered. RN will continue to monitor.
[2019-01-22] MEDS: DULoxetine 30 MG CAP PO (20:46)
[2019-01-22] MEDS: OLANZapine 2.5 MG TAB PO (20:46)
[2019-01-22] MEDS: methylPREDNISolone 4 MG TAB 8 MG PO (21:32)
[2019-01-22 23:39] VITALS: BP 133/70; PULSE 84; RESP 19; TEMP 36.4; O2SAT 98
[2019-01-23] MEDS: oxyCODONE 15 MG TAB 30 MG PO ×3 (01:55→09:48)
[2019-01-23] MEDS: Normal Saline Flush 10 ML SYR IVP ×3 (01:55→09:48)
[2019-01-23] MEDS: Ketorolac 15 MG/ML VIAL IVP (06:06)
[2019-01-23] MEDS: Docusate Sodium 100 MG CAP PO (07:49)
[2019-01-23] MEDS: Pantoprazole 40 MG TABCR PO (07:49)
[2019-01-23] MEDS: Lactobacillus Acidophilus CAP 1 CAP PO (07:49)
[2019-01-23] MEDS: Cholecalciferol (Vitamin D3) 1,000 UNIT TAB 1000 UNITS PO (07:49)
[2019-01-23] MEDS: Phenazopyridine 200 MG TAB PO (07:49)
[2019-01-23] MEDS: methylPREDNISolone 4 MG TAB PO (07:49)
[2019-01-23] MEDS: Lisinopril 10 MG TAB PO (07:49)
[2019-01-23] MEDS: amLODIPine 10 MG TAB PO (07:49)
[2019-01-23 07:50] VITALS: O2SAT 96
[2019-01-23 08:00] VITALS: BP 128/15; PULSE 85; RESP 18; TEMP 36.7; O2SAT 96
--- NOTE | 2019-01-23 08:21 | PCNE_ITS ---
Date of service: 01/21/19 History of Present Illness Chief Complaint: Anxiety, long-term abx, LLE weakness, gait instability. Narrative: I was asked to see Mr Cuevas for a PC consult more than two weeks ago. He has been hospitalized more often than not since July 2018 for a psoas abscess. Due to his other medical comorbidities, he is not a surgical candidate. He has been on multiple rounds of IV antibiotcs. HE is usually admitted on swing-bed status for this treatment. He was due to finish his antibiotics on 01/24. Note that I have attempted to see Mr. Cuevas on other occasions. He has been out of the building on our scheduled visit days. Today, when I attempt to see him, he is not in his bed. I called out to him, noting that the light in the BR was on. He did not answer. I reported to his primary nurse that I could not find him. Nursing went in and found him in the BR. He required a two person assist. The nurses helped him back to his bed. When I entered the room, he was in severe pain, writhing, groaning, unable to have a conversation around his goals of care. Note that he had been up walking earlier; he was able to ambulate to the BR prior to my meeting with him. Consults Consult date: 01/21/19 Requesting physician: Denise Connell Assessment and Plan (1) Paraspinal abscess: Current visit: No Status: Acute Hospitalist and nurses and care managers report that no surgeon will take Jason to surgery for multiple reasons. He is fated to having multiple rounds of antibiotics. He was in severe pain during my brief visit. He was not able to have any meaningful discussion given this pain. (2) Chronic pain: Current visit: No Status: Chronic severe at time of my visit does have h.o opioid addiction given this, he may need much higher doses than usual, or, conversely, high doses might cause hyperthesia (3) Palliative care patient: Current visit: Yes Status: Acute not ready to engage fully today will try back again later (4) Major depressive episode: Current visit: No Status: Acute followed by Dr Gilbert here Review of Systems Review of Systems All systems reviewed & are unremarkable except as noted in HPI and below Musculoskeletal Reports abnormal gait, Reports back pain, Reports myalgias, Reports limited range of motion, Reports muscle cramps, Reports muscle weakness and Reports stiffness Comments: reports his left hip/flank is exquisite pain not as bad to palpation as to movement Neurologic Reports abnormal gait Psychiatric Reports abnormal sleep pattern, Reports anxiety, Reports hopelessness, Reports irritability, Reports anhedonia and Reports panic attacks [facility] Medical History Affective personality disorder (Chronic) Anxiety (Chronic) Bipolar 2 disorder (Chronic) Depression (Chronic) GERD (gastroesophageal reflux disease) (Chronic) HTN (hypertension) (Chronic) Hepatitis C (Chronic) History of alcohol abuse (Chronic) History of intravenous drug abuse (Chronic) Hyperlipidemia (Chronic) Kidney stones (Chronic) PTSD (post-traumatic stress disorder) (Chronic) TBI (traumatic brain injury) (Chronic) Surgical History Appendectomy Colonoscopy - MAC (11/14/16) EGD - MAC (11/14/16) Rotator Cuff Repair Spinal Fusion Vasectomy Social History Smoking/Tobacco Use Status: Current every day Tobacco Type: cigarettes Alcohol Intake: never Drug use: Never Substance use type: does not use and former substance user Details: Hx drug abuse Do you feel safe at home: Yes Do you feel safe in your relationship?: Yes Exam Const General: acute distress, anxious and disheveled Nutritional Appearance: obese Orientation: alert, oriented to person, oriented to place and oriented to time Limitations: physical limitations (He reports too much pain for me to have a conversation with me) [facility] Head: normocephalic and atraumatic Ears: hearing grossly normal bilaterally General nose exam: external nose normal Face and sinus: normal facial exam Eyes Conjunctivae: conjunctivae normal Sclera: sclerae normal Neck Neck: no lymphadenopathy Results Last Vital Signs Temp 97.5 F L 01/22/19 23:39 Pulse 84 01/22/19 23:39 Resp 19 01/22/19 23:39 BP 133/70 01/22/19 23:39 Pulse Ox 98 01/22/19 23:39 Labs : 01/22/19 06:50 01/22/19 06:50 Laboratory Results - last 24 hr 01/22/19 01/22/19 06:50 06:50 WBC 7.56 RBC 4.37 L Hgb 11.3 L Hct 35.9 L MCV 82.2 MCH 25.9 L MCHC 31.5 L RDW 16.3 H Plt Count 224 MPV 8.9 ESR 52 H Sodium 145 Potassium 4.0 Chloride 108 H Carbon Dioxide 27.4 Anion Gap 9.6 BUN 20 H Creatinine 0.96 Estimated GFR/1.73 m2 >= 60.00 Glucose 134 H Calcium 8.7 Total Bilirubin 0.2 AST 16 ALT 24 Alkaline Phosphatase 134 H C-Reactive Protein 1.30 H Total Protein 7.4 Albumin 3.3 L
--- NOTE | 2019-01-23 10:42 | W.PM.DS.N ---
Date of service: 01/23/19 Time of Service: 10:42 DS: Diagnosis Discharge Diagnosis (1) Suicidal ideation: Status: Acute (2) Psoas abscess, left: Status: Acute (3) Anxiety: Status: Chronic (4) Chronic pain: Status: Chronic (5) Hypertension: Status: Chronic (6) Fall: Status: Acute (7) DVT prophylaxis: Status: Acute (8) Discharge planning issues: Status: Acute Discharge Plan Disposition Patient Disposition: [facility] SWING BED LEVEL 1 Condition: Stable Discharge Details Reason For Visit: SUICIDAL IDEATION,ANXIETY,PANIC,LLE WEAKNESS Admit Date/Time: 01/21/19 17:08 Admit Provider: Denise Connell Attending Provider: Denise Connell Primary Care Provider: Ashely Mueller Hospital Course Hospital Course: Mr. Cuevas is a 43 year old man who has been here on swing bed status for IV Oxacillin for left psoas abscess. He appears to be improving from that standpoint as his CRP was down to 1.66 on most recent lab work. He also had a CT abdomen/pelvis which showed improvement. Dr. Connell spoke with TERRI Hernandes at [facility], who recommends that Mr Cuevas stay on IV oxacillin for up to 12 weeks. The end date will be determined by plateauing of ESR/CRP, which should be checked weekly. He will need to remain on chronic suppressive doxycycline after the completion of the IV antibiotics. The patient was also recommended to be in rifampin in addition to oxacillin if he can tolerate due to the hardware involvement in his back. Unfortunately, he has been reporting increased pain, weakness, numbness and tingling in his LLE. He actually fell on 01/19/19, he reported that his LLE gave out, he went on to have a CT head and neck which were normal. He was seen by Dr. Restrepo, Orthopedics, who agrees that this pain appears to be radiculopathy. He agreed with starting medrol dosepak, he also recommended scheduled toradol and muscle relaxers. Jason refuses muscle relaxers, but agrees to trial steroids and NSAIDS. He describes the pain as electric, and he was offered gabapentin but he refused due to it causing restless leg syndrome. PT has been consulted to work on strengthening of the LLE and balance. In addition, he has been increasingly more anxious and showing signs of paranoia. Yesterday, he verbalized concern that his food was being tapered with and that nurses were laughing at him. He has not been sleeping well. There are concerns the increased anxiety and changing mood could represent a manic prodrome. He went on to verbalize suicidal ideation and stating that when he left the hospital he was going to leave the area and end his life. His case was discussed with Dr. Gilbert who initially recommended ativan, however when his symptoms progressed today and appeared to be possibly related to his underlying bipolar, she recommended initiating olanzapine today. Jason was agreeable to trying olanzapine. Given his suicidal ideation with seemingly unstable mental status as well as increased anxiety and unsteady gait, it was determined that it was not safe for him to be going outside alone. It was determined that it was in his best interest to have a mental health evaluation mental health was consulted. Mental health consult pending. He denies SI, he states his mood is improved, though he insisted to be taken off of the zyprexa, because he did not like the way it made him feel. Per Dr. Gilbert suggestion his cymbalta was increased to 80 mg and he was started on lamictal 25 mg for mood. PT worked with him today and do feel he is safe for swing bed status, though he does have some weakness in the left extremity the will continue to work with him while on swing status. He will be swung for antibiotics therapy. He transitioned back to acute status for his safety and mental health evaluation as well as physical therapy and stabilization of his underlying mood disorder. 1) Suicidal ideation: Today he is stating he is not having SI. He has no plan to harm himself he is just tired. (2) Psoas abscess, left: Continue IV Oxacillin, origninal end date was 01/24. CT scan shows improvement, most recent CRP improved at 1.34. Dr. Connell spoke with TERRI Hernandes at [facility], who recommends that Mr Cuevas stay on IV oxacillin for up to 12 weeks. The end date will be determined by plateauing of ESR/CRP, which should be checked weekly. He will need to remain on chronic suppressive doxycycline after the completion of the IV antibiotics. The patient was also recommended to be in rifampin in addition to oxacillin if he can tolerate due to the hardware involvement in his back. The patient reports having GI upset when he was previously on Rifampin, however, he is willing to try it again. He was taking Rifampin [address] [facility] previously. He has completed therapy for hepatitis C. We will recheck his LFT's - these will also need to be trended weekly while on rifampin. Finally, the patient may not have to have any more imaging, unless his CRP starts to go up. His imaging will likely never normalize. Continue to follow weekly ESR, CRP, add LFTs if he resumes Rifampin. (3) Anxiety: He is followed by Dr. Gilbert, Psychiatry. His case was discussed with Dr. Gilbert given his increased anxiety and concern that he could potentially be beginning a manic epidsode. He is complaining the zyprexa make him feel to tired and he does not like it. He has agreed to try it at a lower dose. It has been decreased to 2.5 (4) Chronic pain: In the setting of psoas abscess and with history of substance abuse. There was a plan to actively decrease his oxycodone use while titrating a fentanyl patch, however, he did not do well with this transition and the fentanyl patch was ultimately discontinued last week. He continues on oxycodone at this time. Continue to monitor. Consider decreasing oxycodone as his abscess/wound improved. He does not appear in pain at this time. (5) Hypertension: Continue clonidine patch, amlodipine and pain control. (6) Fall: Mr. Cuevas fell 01/19/19 and struck his head and neck. He had a CT of the head and cervical spine which were normal. He c/o pain to his head today, continue to monitor. (7) DVT prophylaxis: Chemical DVT prophylaxis not indicated in a 43 year old patient that ambulates frequently throughout the day. (8) Discharge planning issues: Disposition unclear at this time. Home Meds and New Rx's Prescriptions: Continued amlodipine 5 mg Tablet 5 mg PO DAILY Qty: 30 RF: 0 docusate sodium [Colace] 100 mg Capsule 100 mg PO BID Qty: 60 RF: 0 pantoprazole 40 mg Tablet,Delayed Release (Dr/Ec) 40 mg PO BID@ Qty: 60 RF: 0 ibuprofen [IBU] 800 mg Tablet 800 mg PO TID PRN (Reason: Pain) Qty: 90 RF: 3 clonidine 0.1 mg/24 hr Patch Weekly See Rx Instructions .ROUTE .COMPLEX RF: 0 acidophilus-pectin, citrus 25 million cell -100 mg Tablet 1 cap PO TID Qty: 30 RF: 0 lidocaine [Lidoderm] 5 % adhesive patch,medicated 1 patch topical QAM Qty: 30 RF: 0 oxacillin 2 gram Recon Soln 2,000 mg IV Q4H 31 Days RF: 0 duloxetine [Cymbalta] 30 mg Capsule,Delayed Release(Dr/Ec) 30 mg PO DAILY Qty: 14 RF: 0 oxycodone 15 mg tablet 30 mg PO Q4H MDD 180mg Qty: 60 RF: 0 acetaminophen 500 mg Tablet 1,000 mg PO Q8H PRN PRNRF: 0 methylprednisolone 8 mg Tablet 8 mg PO BID RF: 0 lisinopril 10 mg Tablet 10 mg PO DAILY RF: 0 lorazepam 1 mg Tablet 1 mg PO Q4H PRN PRNRF: 0 ketorolac 15 mg/mL Syringe 15 mg IV Q6H PRN PRNRF: 0 cholecalciferol (vitamin D3) 1,000 unit Tablet 1,000 unit PO DAILY RF: 0 olanzapine 5 mg Tablet 5 mg PO HS RF: 0 methylprednisolone 4 mg Tablet 4 mg PO TID RF: 0 sodium chloride 0.9 % [Normal Saline Flush] Syringe 30 ml IV PRN PRNRF: 0 Discharge Instructions Additional Instructions: Transition to swing bed Activity:: Activity as Tolerated Equipment/Supplies:: No Equipment Needed Diet:: As Tolerated Discharge Orders Discharge Orders: Discharge Order (Routine); Ordered 01/23/19 Ordered By: Jessica Abreu Exam Narrative Exam Narrative: Const: calm cooperative, lying in bed c/o being tired Neck: no lymphadenopathy Resp: Clear to all bases Cardio: RRR, no gallop or murmur appreciated. GI: soft nontender, nondistended Skin: intact. Neuro: AAOx 3 DS: Data Vitals/I&O Vitals and I&O: Vital Signs Temperature 36.7 C 01/23/19 08:00 Temperature Source Tympanic 01/23/19 08:00 Pulse 85 01/23/19 08:00 Pulse Rhythm Regular 01/23/19 00:15 Respiratory Rate 18 01/23/19 08:00 Respiratory Effort Non-Labored 01/23/19 00:15 Respiratory Depth Normal 01/23/19 00:15 Respiratory Pattern Normal 01/23/19 00:15 Blood Pressure 128/15 L 01/23/19 08:00 Pulse Oximetry 96 01/23/19 08:00 Oxygen Delivery Method Room Air 01/23/19 08:00 Oxygen Flow Rate 0 01/23/19 08:00 Pain Level 8 01/23/19 09:48 Comment 01/22/19 07:25 Intake & Output 01/22/19 01/22/19 01/23/19 11:59 23:59 11:59 Intake Total 650 / 1580 930 / 1580 140 / 140 Balance 650 / 1580 930 / 1580 140 / 140 Weight 136.9 kg Intake: IV 170 / 380 210 / 380 140 / 140 Oral 480 / 1200 720 / 1200 Other: Comment Pt voiding ad floresita in toilet. Urine not seen at this time. Pt denies sx. Urine not seen, voiding independently in bathroom, denies any symptoms. patient toilets self and states that he has been using toilet requently Voiding Methods Toilet Toilet Toilet Labs on day of discharge: Labs from last 24 hours 01/22/19 06:50 ESR 52 H [facility] Medical History Affective personality disorder (Chronic) Anxiety (Chronic) Bipolar 2 disorder (Chronic) Depression (Chronic) GERD (gastroesophageal reflux disease) (Chronic) HTN (hypertension) (Chronic) Hepatitis C (Chronic) History of alcohol abuse (Chronic) History of intravenous drug abuse (Chronic) Hyperlipidemia (Chronic) Kidney stones (Chronic) PTSD (post-traumatic stress disorder) (Chronic) TBI (traumatic brain injury) (Chronic) Surgical History Appendectomy Colonoscopy - MAC (11/14/16) EGD - MAC (11/14/16) Rotator Cuff Repair Spinal Fusion Vasectomy Social History Smoking/Tobacco Use Status: Current every day Tobacco Type: cigarettes Alcohol Intake: never Drug use: Never Substance use type: does not use and former substance user Details: Hx drug abuse Do you feel safe at home: Yes Do you feel safe in your relationship?: Yes
--- NOTE | 2019-01-23 11:03 | PDOC.CMPRO ---
Care Management Progress Note Jason will re-enter SWB1 for ongoing IV ABX. Discussions with Jason central to behavioral expectations are ongoing.
--- NOTE | 2019-01-23 11:19 | IN_ITS ---
Date of service: 01/23/19 Time of Service: 10:00 PT Notes Inpatient Physical Therapy Evaluation Date: 01/23/19 Referring Doctor: Jessica Abreu NP PT Orders: PT CONSULT: Evaluate and treat Precautions: Standard Patient Profile/Admitting Diagnosis: Orders received for this 43 year old patient with a history of Pysch issues and wound through the hip for which he received management. He has been admitted for quite some time now and was historically on privileges and able to walk around the facility but recently had a fall in the bathroom. He has been having some weakness through the LLE and orders were placed for evaluation of his functional mobility and strength before he is restored to walking status. PMHX: Medical History Affective personality disorder (Chronic) Anxiety (Chronic) Bipolar 2 disorder (Chronic) Depression (Chronic) GERD (gastroesophageal reflux disease) (Chronic) HTN (hypertension) (Chronic) Hepatitis C (Chronic) History of alcohol abuse (Chronic) History of intravenous drug abuse (Chronic) Hyperlipidemia (Chronic) Kidney stones (Chronic) PTSD (post-traumatic stress disorder) (Chronic) TBI (traumatic brain injury) (Chronic) Surgical History Appendectomy Colonoscopy - MAC (11/14/16) EGD - MAC (11/14/16) Rotator Cuff Repair Spinal Fusion Vasectomy Social History/Home Situation: Historically lives in [facility] with a room mate. Equipment Owned/DME: [employer] Subjective: Sure I'll work with you. I really just want to get this over with. I have had months of Physical therapy in the past so it is nothing against you but I don't like PT. Objective: As this therapist enters the room, patient is sitting on edge of bed tapping his feet and IV lines in place through the left. He appears a little anxious but in NAD. Mental Status: Alert and oriented x [address] and time. Pain: Pain through the left hip ROM: Right Upper Extremity: WFL Left Upper Extremity: WFL Right Lower Extremity: WFL Left Lower Extremity: Hip flexion to 100, knee extension to 0, knee flexion to 120 degrees and beyond. ANkle motion within functional limits. Strength: Right Upper Extremity: Globally 5/5 Left Upper Extremity: Globally 5/5 Right Lower Extremity: GLobally 5/5 Left Lower Extremity: Hip flexion 4+/5 due to pain, Quads 4+/5 due to pain, HS 4+/5 no pain, Dorsiflexion 4+/5, Plantar flexion 4+/5. Hip abduction isometric 4/5 Bed Mobility/Transfers: Supervision Supine-sit: Supervision Sit-stand: Supervision Stand-sit: Supervision Gait: with cane and supervision patient able to ambulate 20 feet. He is able to walk backwards a few steps, negotiate single leg balance on right, and lateral step to negotiate in room obstacle for safe transfer. Balance: Static Sitting: Normal Dynamic Sitting: Normal Static Standing:good Dynamic Standing: good Special Tests: Mobility Limitations Standardized Measure [facility] AM-PAC 6 clicks Basic Mobility Inpatient Short Form: Raw Score: 23 Standardized Score: 51.12 CMS Score: 15.86 CMS Modifier: CI Informed Consent/Education: Patient instructed in purpose of PT consult and plan of care. Patient was reminded about how he refused care yesterday. He was informed of the necessity for this evaluation and at no time did patient request a stop or halt of services today. At times he appeared to try to duke through some of the tests and had to be reminded to slow down. He was trained in an HEP consisting of: SLR, Bridging, LAQ, Heel raise, Toe raise, and marching in place ASSESSMENT: Patient is a 43 year old male with history of pysch and orthopedic issues Admitted with suicidal ideation, anxiety, psoas abscess, Patient presents with the following impairment level findings: Mild supervision needed for transfers and gait, Pain with resistance testing, and evidence of mild strength loss through the left lower extremity globally. Pt will benefit from skilled therapy intervention in order to remedy their functional limitations and restore patient to a more appropriate and stable functional level. Impairments are contributing to the following functional limitations: AMPAC score CMS Score: 15.86 Patient is assessed as a Moderate complexity initial evaluation based on the following: History: see above Examination: see above Presentation: evolving Decision Making: Moderate based on AMPAC of 15.86 Goals: Goals X1 week 1. Supine-Sit Independent 2. Sit-Supine Independent 3. Sit-Stand Independent 4. Stand-Sit Independent 5. Bed-Chair Independent 6. Gait Independent with cane up to 300 feet 7: Independent in Home program Plan of Care/Treatment Plan: 1-2x/day, 7 days/week x 1 week. Plan of care has been reviewed with the [employer] providing the service under Physical Therapy direction. Initiate Physical Therapy intervention for strengthening, bed mobility, transfers, gait, stairs, balance training, use of assistive device. DISCHARGE RECOMMENDATIONS: To home once medically stable. At this time do not anticipate the need for additional PT services once goals are met in this setting unless there is a significant down grade in his functional status TREATMENT CODE/TIME: Moderate complexity initial evaluation 58013 10:00am, 15 minutes
--- NOTE | 2019-01-23 12:27 | NUR.NOTE ---
Nursing Note: Jason's status changed from acute to swingbed this afternoon.
--- NOTE | 2019-01-26 10:10 | PT.INDS ---
Date of service: 01/26/19 Time of Service: 11:17 PT Notes Inpatient Physical Therapy Discharge Summary Date: 01/25/19 Dates of Service: 01/23/2019 through 01/25/2019 This is a clinical summary of care provided on the duration of dates listed above. No charge was made in the completion of this documentation. Referring Doctor: Jessica Abreu NP PT Orders: PT CONSULT: Evaluate and treat Precautions: Standard Patient Profile/Admitting Diagnosis: Orders received for this 43 year old patient with a history of Pysch issues and wound through the hip for which he received management. He has been admitted for quite some time now and was historically on privileges and able to walk around the facility but recently had a fall in the bathroom. He has been having some weakness through the LLE and orders were placed for evaluation of his functional mobility and strength before he is restored to walking status. PMHX: Medical History Affective personality disorder (Chronic) Anxiety (Chronic) Bipolar 2 disorder (Chronic) Depression (Chronic) GERD (gastroesophageal reflux disease) (Chronic) HTN (hypertension) (Chronic) Hepatitis C (Chronic) History of alcohol abuse (Chronic) History of intravenous drug abuse (Chronic) Hyperlipidemia (Chronic) Kidney stones (Chronic) PTSD (post-traumatic stress disorder) (Chronic) TBI (traumatic brain injury) (Chronic) Surgical History Appendectomy Colonoscopy - MAC (11/14/16) EGD - MAC (11/14/16) Rotator Cuff Repair Spinal Fusion Vasectomy Social History/Home Situation: Historically lives in [facility] with a room mate. Equipment Owned/DME: Cane Subjective: When asked how he is pain-marie, I am always in pain. Patient is agreeable to evaluation today. He states that he is willing to work as well as cooperate with balance training exercises. Patient reported increase in pain symptoms initial exercises provided to him. Objective: Mental Status: Alert and oriented x 4. Patient met at home allowed PT. 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 Pain: Pain through the left hip ROM: Right Upper Extremity: WFL Left Upper Extremity: WFL Right Lower Extremity: WFL Left Lower Extremity: Hip flexion to 100, knee extension to 0, knee flexion to 120 degrees and beyond. Ankle motion within functional limits. Strength: Right Upper Extremity: Globally 5/5 Left Upper Extremity: Globally 5/5 Right Lower Extremity: GLobally 5/5 Left Lower Extremity: Hip flexion 3-/5 due to pain, Quads 3-/5 due to pain, HS 4-/5 no pain, Dorsiflexion 4-/5, Plantar flexion 4-/5. Hip abduction isometric 4/5. Bed Mobility/Transfers: Supervision Supine-sit: I Sit-stand: I Stand-sit: I Gait: Supervision with cane and supervision patient able to ambulate 20 feet. He is able to walk backwards a few steps, negotiate single leg balance on right, and lateral step to negotiate in room obstacle for safe transfer. Patient was previously observed to negotiate level and on level surface. Balance: Static Sitting: Normal Dynamic Sitting: Normal Static Standing:good Dynamic Standing: good Special Tests: Mobility Limitations Standardized Measure [facility] AM-PAC 6 clicks Basic Mobility Inpatient Short Form: Raw Score: 23 CMS Score: 15.86 4 stage balance test: Patient was able to assume positions 1 and 2 for 10 seconds. Was able to do tandem stance with right foot leading for 10 seconds position with left foot leading. Able to stand on right 10 seconds unable to do so on the left side. Informed Consent/Education: Patient instructed in purpose of PT consult and plan of care. Patient is agreeable to reviewing exercises for strengthening and expressed his cooperation with balance training. ASSESSMENT: Patient is a 43 year old male with history of pysch and orthopedic issues Admitted with suicidal ideation, anxiety, psoas abscess, Patient presents with the following impairment level findings: Mild supervision needed for transfers and gait, Pain with resistance testing, and evidence of mild strength loss through the left lower extremity globally. Pt will benefit from skilled therapy intervention in order to remedy their functional limitations and restore patient to a more appropriate and stable functional level. Impairments are contributing to the following functional limitations: AMPAC score CMS Score: 15.86 Patient is assessed as a Low complexity initial evaluation based on the following: History: [id number]-year-old male with extensive psychiatric history now currently with impairments in strength, balance, and mobility performance with a recent fall Examination: see above Presentation: evolving Decision Makin Low complexity Goals: Goals X1 week 1. Supine-Sit Independent MET 2. Sit-Supine Independent MET 3. Sit-Stand Independent MET 4. Stand-Sit Independent MET 5. Bed-Chair Independent MET 6. Gait Independent with cane up to 300 feet NOT MET 7: Independent in Home program DISCHARGE RECOMMENDATIONS: To home once medically stable. At this time do not anticipate the need for additional PT services once goals are met in this setting unless there is a significant down grade in his functional status TREATMENT CODE/TIME: NC. Thank you very much for this referral. Zofia Foster PT, DPT, CLT [facility]
== END 2019-01-23 11:33 | disposition swing bed (61) | DRG 880 ==
PROVIDERS: Admitting Provider Internal Medicine; PCP Nurse Practitioner Family; Visit Provider Internal Medicine
DX: R45.851 Suicidal ideations (principal); K68.12 Psoas muscle abscess; R53.1 Weakness; R26.81 Unsteadiness on feet; F22 Delusional disorders; F41.9 Anxiety disorder, unspecified; G89.29 Other chronic pain; I10 Essential (primary) hypertension; Z79.2 Long term (current) use of antibiotics; R51 Headache; W19.XXXS Unspecified fall, sequela; F19.11 Other psychoactive substance abuse, in remission; Z51.5 Encounter for palliative care; Z45.2 Encounter for adjustment and management of vascular access device
CPT/HCPCS: 80053; 85027; 85652; 99222; 99233; 99252; 99316; 86140; 99239; J1885; J2700; J7509

== ENCOUNTER 2019-01-23 10:55 | Inpatient (IN) | payer MEDICARE, MEDICAID, SELFPAY ==
--- NOTE | 2019-01-23 10:56 | HPE_ITS ---
Date of service: 01/23/19 Time of Service: 10:57 Assessment and Plan (1) Suicidal ideation: Start date: 01/23/19 Start time: 11:06 Current visit: Yes Status: Acute Recently having thoughts of SI, placed on acute and given zyprexa after consultation by Dr. Gilbert. He did not like the zyprexa, dcd and lamictal started, also increased cymbalta to 80, continue to monitor, denies suicidal ideation at this time. States he is feeling better today and feeling good. (2) Psoas abscess, left: Start date: 01/23/19 Start time: 11:08 Current visit: No Status: Acute Continue IV Oxacillin, origninal end date was 01/24. CT scan shows improvement, most recent CRP improved at 1.34. Dr. Connell spoke with TERRI Hernandes at [facility], who recommends that Mr Cuevas stay on IV oxacillin for up to 12 weeks. The end date will be determined by plateauing of ESR/CRP, which should be checked weekly. He will need to remain on chronic suppressive doxycycline after the completion of the IV antibiotics. The patient was also recommended to be in rifampin in addition to oxacillin if he can tolerate due to the hardware involvement in his back. The patient reports having GI upset when he was previously on Rifampin, however, he is willing to try it again. He was taking Rifampin 300 mg BID at [facility] previously. He has completed therapy for hepatitis C. We will recheck his LFT's - these will also need to be trended weekly while on rifampin. Finally, the patient may not have to have any more imaging, unless his CRP starts to go up. His imaging will likely never normalize. (3) Anxiety: Start date: 01/23/19 Start time: 11:09 Current visit: No Status: Chronic He is followed by Dr. Gilbert, Psychiatry. His case was discussed with Dr. Gilbret given his increased anxiety and concern that he could potentially be beginning a manic episode. He is feeling better today, he did not like the zyprexa, it has been discontinued and lamictal started. Cymbalta increased to [address] Gilbert recommendation (4) Chronic pain: Start date: 01/23/19 Start time: 11:11 Current visit: No Status: Chronic In the setting of psoas abscess and with history of substance abuse. There was a plan to actively decrease his oxycodone use while titrating a fentanyl patch, however, he did not do well with this transition and the fentanyl patch was ultimately discontinued last week. He continues on oxycodone at this time. Continue to monitor. Consider decreasing oxycodone as his abscess/wound improved. He does not appear in pain at this time. (5) Hypertension: Start date: 01/23/19 Start time: 11:11 Current visit: No Status: Chronic continue clonidine patch, amlodipine and pain control (6) DVT prophylaxis: Start date: 01/23/19 Start time: 11:11 Current visit: No Status: Acute Not indicated in a ambulatory 43 yr old male History of Present Illness Chief Complaint: PSOAA ABCESS Narrative: Mr. Cuevas is a 43 year old man who has been here on swing bed status for IV Oxacillin for left psoas abscess. He appears to be improving from that standpoint as his CRP was down to 1.66 on most recent lab work. He also had a CT abdomen/pelvis which showed improvement. Dr. Connell spoke with TERRI Hernandes at [facility], who recommends that Mr Cuevas stay on IV oxacillin for up to 12 weeks. The end date will be determined by plateauing of ESR/CRP, which should be checked weekly. He will need to remain on chronic suppressive doxycycline after the completion of the IV antibiotics. The patient was also recommended to be in rifampin in addition to oxacillin if he can tolerate due to the hardware involvement in his back. Unfortunately, he has been reporting increased pain, weakness, numbness and tingling in his LLE. He actually fell on 01/19/19, he reported that his LLE gave out, he went on to have a CT head and neck which were normal. He was seen by Dr. Restrepo, Orthopedics, who agrees that this pain appears to be radiculopathy. He agreed with starting medrol dosepak, he also recommended scheduled toradol and muscle relaxers. Jason refuses muscle relaxers, but agrees to trial steroids and NSAIDS. He describes the pain as electric, and he was offered gabapentin but he refused due to it causing restless leg syndrome. PT has been consulted to work on strengthening of the LLE and balance. He was admitted to acute care on 01/19/2019 for SI, manic episode and depression. He was placed on zyprexa and did not like it due to sleepiness. Dose was decreased and still wanted it dcd. He was switched to lamictal 25 mg today and cymbalta increased to 80 mg daily. His mood is improved and he denies SI. We will monitor and adjust as needed his medication. PT worked with him and will continue while on swing as he has some left leg weakness. He denies nausea vomiting, chest pain, shortness of breath. He denies SI, he states his mood is improved, though he insisted to be taken off of the zyprexa, because he did not like the way it made him feel. Per Dr. Gilbert suggestion his cymbalta was increased to 80 mg and he was started on lamictal 25 mg for mood. PT worked with him today and do feel he is safe for swing bed status, though he does have some weakness in the left extremity the will continue to work with him while on swing status. He will be swung for antibiotics therapy. He transitioned back to acute status for his safety and mental health evaluation as well as physical therapy and stabilization of his underlying mood disorder. Finally, the patient may not have to have any more imaging, unless his CRP starts to go up. His imaging will likely never normalize. Review of Systems Review of Systems All systems reviewed & are unremarkable except as noted in HPI and below Constitutional Reports as per HPI Eyes Reports system reviewed and no additional complaints, except as docu ENT Reports system reviewed and no additional complaints, except as docu Cardiovascular Reports system reviewed and no additional complaints, except as docu Respiratory Reports system reviewed and no additional complaints, except as docu Gastrointestinal Reports system reviewed and no additional complaints, except as docu Genitourinary Reports system reviewed and no additional complaints, except as docu Musculoskeletal Reports as per HPI Neurologic Reports as per HPI Psychiatric Reports system reviewed and no additional complaints, except as docu Endocrine Reports system reviewed and no additional complaints, except as docu Hematologic/Lymphatic Reports system reviewed and no additional complaints, except as docu [facility] Medical History Affective personality disorder (Chronic) Anxiety (Chronic) Bipolar 2 disorder (Chronic) Depression (Chronic) GERD (gastroesophageal reflux disease) (Chronic) HTN (hypertension) (Chronic) Hepatitis C (Chronic) History of alcohol abuse (Chronic) History of intravenous drug abuse (Chronic) Hyperlipidemia (Chronic) Kidney stones (Chronic) PTSD (post-traumatic stress disorder) (Chronic) TBI (traumatic brain injury) (Chronic) Surgical History Appendectomy Colonoscopy - MAC (11/14/16) EGD - MAC (11/14/16) Rotator Cuff Repair Spinal Fusion Vasectomy Social History Smoking/Tobacco Use Status: Current every day Tobacco Type: cigarettes Alcohol Intake: never Drug use: Never Substance use type: does not use and former substance user Details: Hx drug abuse Do you feel safe at home: Yes Do you feel safe in your relationship?: Yes Meds Home Medications Medication Instructions Recorded Confirmed Type amlodipine 5 mg PO DAILY #30 tab 09/29/18 01/21/19 Rx docusate sodium [Colace] 100 mg PO BID #60 cap 09/29/18 01/21/19 Rx pantoprazole 40 mg PO BID@07,1999 #60 tab 09/29/18 01/21/19 Rx ibuprofen [IBU] 800 mg PO TID PRN #90 tab 11/13/18 01/21/19 Rx clonidine See Rx Instructions .ROUTE .COMPLEX 12/16/18 01/21/19 History acidophilus-pectin, citrus 1 cap PO TID #30 tab 12/24/18 01/21/19 Rx duloxetine [Cymbalta] 30 mg PO DAILY #14 cap 12/24/18 01/21/19 Rx lidocaine [Lidoderm] 1 patch TOPICAL QAM #30 each 12/24/18 01/21/19 Rx oxacillin 2,000 mg IV Q4H 31 Days each 12/24/18 01/21/19 Rx oxycodone 30 mg PO Q4H #60 tab MDD 180mg 12/24/18 01/21/19 Rx acetaminophen 1,000 mg PO Q8H PRN PRN 01/21/19 01/21/19 History cholecalciferol (vitamin D3) 1,000 unit PO DAILY 01/21/19 01/21/19 History ketorolac 15 mg IV Q6H PRN PRN 01/21/19 01/21/19 History lisinopril 10 mg PO DAILY 01/21/19 01/21/19 History lorazepam 1 mg PO Q4H PRN PRN 01/21/19 01/21/19 History methylprednisolone 4 mg PO TID 01/21/19 01/21/19 History methylprednisolone 8 mg PO BID 01/21/19 01/21/19 History olanzapine 5 mg PO HS 01/21/19 01/21/19 History sodium chloride 0.9 % [Normal 30 ml IV PRN PRN 01/21/19 01/21/19 History Saline Flush] Allergies Allergy/AdvReac Type Severity Reaction Status Date / Time No Known Allergies Allergy Verified 12/27/18 10:45 Exam Narrative Exam Narrative: Exam Narrative: Const: calm and ambulating Neck: no lymphadenopathy Resp: Clear to all bases Cardio: RRR, no gallop or murmur appreciated. GI: soft nontender, nondistended Skin: intact. Neuro: AAOx 3
[2019-01-23] MEDS: Acetaminophen 500 MG TAB 1000 MG PO ×2 (11:55→19:56)
[2019-01-23] MEDS: methylPREDNISolone 4 MG TAB PO ×3 (11:56→22:31)
[2019-01-23] MEDS: Ketorolac 15 MG/ML VIAL IVP ×2 (11:56→18:32)
--- NOTE | 2019-01-23 12:27 | NUR.NOTE ---
Addendum entered and electronically signed by Heather Kulkarni 01/23/19 12:30: All shift documentation attached to prior, in patient account. Original Note: Nursing Note: Jason's status changed from acute to swingbed this afternoon.
--- NOTE | 2019-01-23 14:12 | PHARADMIT ---
Addendum entered by Elen Balderas 01/27/19 12:35: Temp 37.7~2am this morning and the day before was febrile, blood cultures drawn, Positive in ONE bottle, gram positive cocci in chains Pt rec'd Vanco 1.5gram x1, followed by 1.5gm IV q8h now, trough ordered for 11am on Thursday ?source of infection....may need to pull PICC line and culture Oxacillin will continue for MSSA coverage until new sensitivities are available Clonidine patch order changed to Apply on Chest Xray ordered was normal Urinalysis ordered was negative Original Note: Admission Pharmacy Clinical Review below is the swing to acute bed Pharmacy Clincal interventios: Patient is back to Swing bed: TRISTIAN NORWOOD Male : 1975 Emr# [id number] 01/22/19 13:17 - Pharmacy Review by Francesco Luis III [facility] Num: [id number] : 1975 Patient Age: 43 Addendum entered by Francesco Luis III 01/22/19 13:18: PATIENT WAS CHANGED TO ACUTE AFTER FALL AND HEAD INJURY. ZYPREXA WAS ORDERED LAST NIGHT (5MG) AND SUBSEQUENTLY DECREASED TO 2.5MG TODAY. VS-[facility] LABS-wnl oxacillin 2gm iv q4hrs for another 6 weeks. Original Note: Admission Pharmacy Clinical Review BELOW IS THE SWING BED ACCOUNT PHARMACY CLINICAL INTERVENTIONS: TRISTIAN NORWOOD Male : 1975 Emr# [id number] 01/07/19 15:47 - Pharmacy Review by Francesco Luis III Acc Num: [id number] : 1975 Patient Age: 43 Addendum entered by Francesco Luis III 01/21/19 14:30: Pharmacy Note [facility] No Labs Per [facility] infectious Disease, patient Oxacilin end date extended another four weeks. Adding Rifampin was discussed, (watch LFTs if ordered) Patient had fall, and has been set back a bit, lower extremety weakness. Medrol Dosepak and IV Toradol stated for pain. Ibuprofen on hold Addendum entered by Francesco Luis III 01/21/19 14:29: Addendum entered by Dary Rivera 01/12/19 12:14: swingbed for IV oxacillin for 6 weeks, initiated on 12/13/2018, with end date of 01/24. BP-135/92 other VS okay, labs okay ESR-47(down) lisinopril started on 01/10 fentanyl patch discontinued and oxycodone changed back to 30 mg oxycodone q4h PRN, as the fentanyl and decreased oxycodone was not working for the pt and the pt was going into withdrawals per nursing report; pt had too much pain to get out of bed this morning and refused the lidocaine patch last night per morning report Addendum entered by Susannah Aguirre 01/08/19 10:17: pt swingbed Continue IV Oxacillin for a planned course of 6 weeks, initiated on 12/13/2018, with end date of 01/24. pain meds to be adjusted. plan was for fentanyl patch start and possibly increased and PO oxycodone to be decreased duloxetine dose increased to 60mg Original Note: Admission Pharmacy Clinical Review LEFT PSOAS ABSCESS 9chronioc pain) Code Status Full Code Current Weight Wgt-136.9 kg Renally Cleared and Narrow Therapeutic Index Meds CrCl~ 95 mL/min Meds-OK QTc Value / Action Taken none current BP Control, Fever BP-177/105 Tmax- 36.7C Electrolytes reviewed Na- 140 K+3.3 Mag-2.0 DVT Prophylaxis None Opiate Usage / Scheduled Bowel Regimen Ordered Yes Yes Plt/SCr for Heparin / Enoxaparin Plts-257 SCr-1.15 INR for Warfarin na H/H stable, WBC/Bands H&H- 12.3/38.6 WBC- 8.44 Antibiotic appropriateness Oxacillin Cultures and Sensitivities Blood cultures-Cancelled Surgical ABX d/c within 24 hr na DM control / Insulin Dosing BG- 102 Heart Failure (Check EF%) (PAMELA's, B-Block, Diuretics) Norvasc, Catapres tts, IV to PO Switch No Home Meds Reviewed Yes Home Meds Not Ordered Ordered Comments Has Duragesic & Lidoderm PAtches, Oxycodone APAP & iBUPROFEN FOR PAIN Initialized on 01/07/19 15:47 - END OF NOTE Initialized on 01/22/19 13:17 - END OF NOTE
[2019-01-23] MEDS: Lactobacillus Acidophilus CAP 1 CAP PO ×2 (14:21→19:57)
[2019-01-23] MEDS: oxyCODONE 15 MG TAB 30 MG PO ×3 (14:21→22:29)
[2019-01-23 16:06] VITALS: BP 113/70; PULSE 75; RESP 18; TEMP 36.8; O2SAT 95
[2019-01-23] MEDS: Normal Saline Flush 10 ML SYR IVP ×2 (18:33→22:32)
[2019-01-23] MEDS: lamoTRIgine 25 MG TAB PO (19:56)
[2019-01-23] MEDS: Pantoprazole 40 MG TABCR PO (19:57)
[2019-01-23] MEDS: Docusate Sodium 100 MG CAP PO (19:57)
[2019-01-23] MEDS: Lidocaine 5% Patch 2 PATCH TP (19:57)
[2019-01-23] MEDS: DULoxetine 20 MG CAP 80 MG PO (22:28)
[2019-01-24] MEDS: Ketorolac 15 MG/ML VIAL IVP ×4 (00:14→18:16)
[2019-01-24] MEDS: Normal Saline Flush 10 ML SYR IVP ×7 (00:15→22:10)
[2019-01-24] MEDS: oxyCODONE 15 MG TAB 30 MG PO ×5 (03:42→21:02)
[2019-01-24 04:00] VITALS: BP 118/76; PULSE 88; RESP 16; TEMP 36.8; O2SAT 98
[2019-01-24 07:50] VITALS: BP 138/81; PULSE 80; RESP 18; TEMP 37; O2SAT 97
[2019-01-24] MEDS: Pantoprazole 40 MG TABCR PO ×2 (08:31→21:03)
[2019-01-24] MEDS: Cholecalciferol (Vitamin D3) 1,000 UNIT TAB 1000 UNITS PO (08:31)
[2019-01-24] MEDS: Lactobacillus Acidophilus CAP 1 CAP PO ×3 (08:32→21:03)
[2019-01-24] MEDS: Docusate Sodium 100 MG CAP PO ×2 (08:32→21:02)
[2019-01-24] MEDS: methylPREDNISolone 4 MG TAB PO ×3 (08:32→23:32)
[2019-01-24] MEDS: amLODIPine 10 MG TAB PO (08:32)
[2019-01-24] MEDS: Lisinopril 10 MG TAB PO (08:32)
[2019-01-24] MEDS: Lidocaine Patch Removal 2 EACH TD (08:34)
[2019-01-24] MEDS: Acetaminophen 500 MG TAB 1000 MG PO ×2 (11:48→21:02)
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
[2019-01-24 15:27] VITALS: BP 134/77; PULSE 83; RESP 16; TEMP 36; O2SAT 99
[2019-01-24] MEDS: lamoTRIgine 25 MG TAB PO (21:01)
[2019-01-24] MEDS: DULoxetine 20 MG CAP 80 MG PO (23:24)
[2019-01-24 23:37] VITALS: BP 146/86; PULSE 82; RESP 16; TEMP 36.2; O2SAT 96
[2019-01-25] MEDS: Ketorolac 15 MG/ML VIAL IVP ×4 (00:26→17:57)
[2019-01-25] MEDS: Normal Saline Flush 10 ML SYR IVP ×7 (00:26→21:41)
[2019-01-25] MEDS: oxyCODONE 15 MG TAB 30 MG PO ×6 (01:03→20:37)
[2019-01-25] MEDS: Acetaminophen 500 MG TAB 1000 MG PO ×3 (04:57→20:36)
[2019-01-25 07:20] VITALS: BP 148/89; PULSE 84; RESP 17; TEMP 36.5; O2SAT 96
[2019-01-25] MEDS: methylPREDNISolone 4 MG TAB PO ×2 (09:20→21:40)
[2019-01-25] MEDS: amLODIPine 10 MG TAB PO (09:21)
[2019-01-25] MEDS: Cholecalciferol (Vitamin D3) 1,000 UNIT TAB 1000 UNITS PO (09:21)
[2019-01-25] MEDS: Docusate Sodium 100 MG CAP PO ×2 (09:21→20:37)
[2019-01-25] MEDS: Lactobacillus Acidophilus CAP 1 CAP PO ×3 (09:22→20:37)
[2019-01-25] MEDS: Lisinopril 10 MG TAB PO (09:22)
[2019-01-25] MEDS: Pantoprazole 40 MG TABCR PO ×2 (09:22→20:37)
--- NOTE | 2019-01-25 09:42 | CM.SBPSYCH ---
- If Service Date Differs Date of service: 01/23/19 Time of Service: 12:00 SB Psychosocial/Act.Assessment - Hospital Admission Admission Date: 01/21/19 Admission From:: SB1 Diagnosis:: suicidal ideation - Swing Bed Admission Swing Bed Admit Date:: 01/23/19 Swing Bed Level of Care: Level 1/SNF - Social Supports PREVIOUS FUNCTIONAL STATUS/SOCIAL/FAMILY SUPPORTS:: Currently Jason is without a place to live. a referral has been made to [facility]. He has a brother who lives locally and who can be supportive at times. He also has a close friend Abhi who visits frequently. - Prior to Admission Living Arrangements/Environment Prior to Admission:: Jason is homeless. - Education Highest Grade Completed:: 12 Where did you attend School:: [employer] - Work History Employment Status:: Jason is disabled - [place]: No 's Spouse: No - Benefits Financial: Social Security, SSI, Medicare, Medicaid - Confucianism Active Voodoo Member:: No - Advance Directives for Healthcare If no AD, do you want more information:: No - Interests Hobbies:: [facility] TV/Movies:: video games Outdoor Activities:: walking - Present Functional Status Physical Abilities:: Jason walks with the aide of a cane Cognitive:: Jason has a TBI with impaired judgement and mood swings Communication:: able to communicate needs Sensory Systems: wears glassses Behavior:: some intermittent paranoia, anxious, appreciative - Medical History PAST MEDICAL HISTORY/PAST SURGICAL HISTORY:: Affective personality disorder (Chronic). Anxiety (Chronic). Bipolar 2 disorder (Chronic). Depression (Chronic). GERD (gastroesophageal reflux disease) (Chronic). HTN (hypertension) (Chronic). Hepatitis C (Chronic). History of alcohol abuse (Chronic). History of intravenous drug abuse (Chronic). Hyperlipidemia (Chronic). Kidney stones (Chronic). PTSD (post-traumatic stress disorder) (Chronic). TBI (traumatic brain injury) (Chronic). Appendectomy. Colonoscopy - MAC (11/14/16). EGD - MAC (11/14/16). Rotator Cuff Repair. Spinal Fusion. 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 Assessment: Jason is a 43 year old man with a TBI who came to [facility] for treatment of a psoas muscle abscess. He is returning to SB1 status following a brief IP admission for stated suicidal thoughts, anxiety and paranoia. He will complete his extended course of antibiotic therapy before being discharged into the community.
--- NOTE | 2019-01-25 14:07 | CMSA_ITS ---
- If Service Date Differs Date of service: 01/23/19 Time of Service: 12:00 SB Psychosocial/Act.Assessment - Hospital Admission Admission Date: 01/21/19 Admission From:: SB1 Diagnosis:: suicidal ideation - Swing Bed Admission Swing Bed Admit Date:: 01/23/19 Swing Bed Level of Care: Level 1/SNF - Social Supports PREVIOUS FUNCTIONAL STATUS/SOCIAL/FAMILY SUPPORTS:: Currently Jason is without a place to live. a referral has been made to [facility]. He has a brother who lives locally and who can be supportive at times. He also has a close friend Abhi who visits frequently. - Prior to Admission Living Arrangements/Environment Prior to Admission:: Jason is homeless. - Education Highest Grade Completed:: 12 Where did you attend School:: [employer] - Work History Employment Status:: Jason is disabled - [place]: No 's Spouse: No - Benefits Financial: Social Security, SSI, Medicare, Medicaid - Catholic Active Restoration Member:: No - Advance Directives for Healthcare If no AD, do you want more information:: No - Interests Hobbies:: [employer] TV/Movies:: video games Outdoor Activities:: walking - Present Functional Status Physical Abilities:: Jason walks with the aide of a cane Cognitive:: Jason has a TBI with impaired judgement and mood swings Communication:: able to communicate needs Sensory Systems: wears glassses Behavior:: some intermittent paranoia, anxious, appreciative - Medical History PAST MEDICAL HISTORY/PAST SURGICAL HISTORY:: Affective personality disorder (C hronic). Anxiety (Chronic). Bipolar 2 disorder (Chronic). Depression (Chronic). GERD (gastroesophageal reflux disease) (Chronic). HTN (hypertension) (Chronic). Hepatitis C (Chronic). History of alcohol abuse (Chronic). History of intravenous drug abuse (Chronic). Hyperlipidemia (Chronic). Kidney stones (Chronic). PTSD (post-traumatic stress disorder) (Chronic). TBI (traumatic brain injury) (Chronic). Appendectomy. Colonoscopy - MAC (11/14/16). EGD - MAC (11/14/16). Rotator Cuff Repair. Spinal Fusion. 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 Assessment: Jason is a 43 year old man with a TBI who came to [facility] for treatment of a psoas muscle abscess. He is returning to SB1 status following a brief IP admission for stated suicidal thoughts, anxiety and paranoia. He will complete his extended course of antibiotic therapy before being discharged into the community.
--- NOTE | 2019-01-25 14:07 | CM.SWINGPC ---
- If Service Date Differs Date of service: 01/23/19 Time of Service: 12:00 Swingbed Plan of Care Plan of care: SWING BED PROGRAM ACTIVITIES/DISCHARGE PLAN OF CARE ACTIVITIES PLAN Date: 01/23/19 Identified Need:Individualized activity plan Intervention/Plan: Sudoku puzzle books, TV, walks outside, visits with staff and friends [facility] DISCHARGE PLAN Date: 01/23/19 Identified Need: Jason is currently homeless Intervention/Plan: Jason has been referred to [facility] for assistance with housing Initials [facility]
--- NOTE | 2019-01-25 14:10 | CMSCP_ITS ---
- If Service Date Differs Date of service: 01/23/19 Time of Service: 12:00 Swingbed Plan of Care Plan of care: SWING BED PROGRAM ACTIVITIES/DISCHARGE PLAN OF CARE ACTIVITIES PLAN Date: 01/23/19 Identified Need:Individualized activity plan Intervention/Plan: Sudoku puzzle books, TV, walks outside, visits with staff and friends [facility] [place] DISCHARGE PLAN Date: 01/23/19 Identified Need: Jason is currently homeless Intervention/Plan: Jason has been referred to [facility] for assistance with housing Initials [facility] [place]
[2019-01-25 15:50] VITALS: BP 152/88; PULSE 86; RESP 18; TEMP 36.5; O2SAT 93
[2019-01-25 20:30] VITALS: BP 162/83; PULSE 92; RESP 16; TEMP 38; O2SAT 98
[2019-01-25] MEDS: lamoTRIgine 25 MG TAB PO (20:37)
[2019-01-25] MEDS: DULoxetine 20 MG CAP 80 MG PO (21:41)
[2019-01-25 21:53] VITALS: TEMP 37.6
[2019-01-26] VITALS (8 sets, daily range): BP systolic 106–158; BP diastolic 64–96; PULSE 83–106; RESP 16–20; TEMP 36.3–37.8; O2SAT 94–98
[2019-01-26] MEDS: oxyCODONE 15 MG TAB 30 MG PO ×6 (00:04→21:34)
[2019-01-26] MEDS: Normal Saline Flush 10 ML SYR IVP ×6 (00:05→21:35)
[2019-01-26] MEDS: Ketorolac 15 MG/ML VIAL IVP ×5 (00:05→23:42)
--- NOTE | 2019-01-26 00:37 | NUR.NOTE ---
Nursing Note: Around 2029, Jason stated he was not feeling well today. Patient states he feels feverish with chills, body aches and increased pain. Patient is pale. Temp was 38, patient was given Tylenol. DAYANA Valle was notified. Patient temp went down to 37.6. Patient states he has no relief from the Tylenol and temp has started increasing again to 37.8 and patient states he is feeling worse and states I feel like I am burning up. DAYANA eBdolla notified at this time
[2019-01-26] MEDS: Acetaminophen 500 MG TAB 1000 MG PO ×3 (04:04→20:03)
[2019-01-26] MEDS: Lactobacillus Acidophilus CAP 1 CAP PO ×2 (08:26→20:03)
[2019-01-26] MEDS: Cholecalciferol (Vitamin D3) 1,000 UNIT TAB 1000 UNITS PO (08:26)
[2019-01-26] MEDS: amLODIPine 10 MG TAB PO (08:26)
[2019-01-26] MEDS: Lisinopril 10 MG TAB PO (08:27)
[2019-01-26] MEDS: Docusate Sodium 100 MG CAP PO ×2 (08:27→20:03)
[2019-01-26] MEDS: Pantoprazole 40 MG TABCR PO ×2 (08:27→20:02)
[2019-01-26] MEDS: methylPREDNISolone 4 MG TAB PO (08:31)
--- NOTE | 2019-01-26 09:24 | DI.RAD_ITS ---
SYMPTOM/DIAGNOSIS: FEVER PA AND LATERAL CHEST: The heart is normal in size. The lungs are clear. The mediastinal structures and pleura appear intact. CONCLUSION: Normal chest.
--- NOTE | 2019-01-26 10:39 | IN_ITS ---
Date of service: 01/26/19 Time of Service: 10:54 PT Notes Inpatient Physical Therapy Evaluation Date: 01/25/2019 Referring Doctor: Jessica Abreu NP PT Orders: PT CONSULT: Evaluate and treat Precautions: Standard Patient Profile/Admitting Diagnosis: Orders received for this 43 year old patient with a history of Pysch issues and wound through the hip for which he received management. He has been admitted for quite some time now and was historically on privileges and able to walk around the facility but recently had a fall in the bathroom. He has been having some weakness through the LLE and orders were placed for evaluation of his functional mobility and strength before he is restored to walking status. PMHX: Medical History Affective personality disorder (Chronic) Anxiety (Chronic) Bipolar 2 disorder (Chronic) Depression (Chronic) GERD (gastroesophageal reflux disease) (Chronic) HTN (hypertension) (Chronic) Hepatitis C (Chronic) History of alcohol abuse (Chronic) History of intravenous drug abuse (Chronic) Hyperlipidemia (Chronic) Kidney stones (Chronic) PTSD (post-traumatic stress disorder) (Chronic) TBI (traumatic brain injury) (Chronic) Surgical History Appendectomy Colonoscopy - MAC (11/14/16) EGD - MAC (11/14/16) Rotator Cuff Repair Spinal Fusion Vasectomy Social History/Home Situation: Historically lives in [facility] with a room mate. Equipment Owned/DME: Cane Subjective: When asked how he is pain-marie, I am always in pain. Patient is agreeable to evaluation today. He states that he is willing to work as well as cooperate with balance training exercises. Patient reported increase in pain symptoms initial exercises provided to him. Objective: Mental Status: Alert and oriented x 4. Patient met at home allowed PT. 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 Pain: Pain through the left hip ROM: Right Upper Extremity: WFL Left Upper Extremity: WFL Right Lower Extremity: WFL Left Lower Extremity: Hip flexion to 100, knee extension to 0, knee flexion to 120 degrees and beyond. Ankle motion within functional limits. Strength: Right Upper Extremity: Globally 5/5 Left Upper Extremity: Globally 5/5 Right Lower Extremity: GLobally 5/5 Left Lower Extremity: Hip flexion 3-/5 due to pain, Quads 3-/5 due to pain, HS 4-/5 no pain, Dorsiflexion 4-/5, Plantar flexion 4-/5. Hip abduction isometric 4/5. Bed Mobility/Transfers: Supervision Supine-sit: I Sit-stand: I Stand-sit: I Gait: Supervision with cane and supervision patient able to ambulate 20 feet. He is able to walk backwards a few steps, negotiate single leg balance on right, and lateral step to negotiate in room obstacle for safe transfer. Patient was previously observed to negotiate level and on level surface. Balance: Static Sitting: Normal Dynamic Sitting: Normal Static Standing:good Dynamic Standing: good Special Tests: Mobility Limitations Standardized Measure [facility] 6 clicks Basic Mobility Inpatient Short Form: Raw Score: 23 CMS Score: 15.86 4 stage balance test: Patient was able to assume positions 1 and 2 for 10 seconds. Was able to do tandem stance with right foot leading for 10 seconds position with left foot leading. Able to stand on right 10 seconds unable to do so on the left side. Informed Consent/Education: Patient instructed in purpose of PT consult and plan of care. Patient is agreeable to reviewing exercises for strengthening and expressed his cooperation with balance training. ASSESSMENT: Patient is a 43 year old male with history of pysch and orthopedic issues Admitted with suicidal ideation, anxiety, psoas abscess, Patient presents with the following impairment level findings: Mild supervision needed for transfers and gait, Pain with resistance testing, and evidence of mild strength loss through the left lower extremity globally. Pt will benefit from skilled therapy intervention in order to remedy their functional limitations and restore patient to a more appropriate and stable functional level. Impairments are contributing to the following functional limitations: AMPAC score CMS Score: 15.86 Patient is assessed as a Low complexity initial evaluation based on the following: History: 80-[id number]-pvs-year-old male with extensive psychiatric history now currently with impairments in strength, balance, and mobility performance with a recent fall Examination: see above Presentation: evolving Decision Makin Low complexity Goals: Goals X1 week 1. Gait independent with cane up to 1000 feet and all types of floor and ground surfaces using least restrictive device 2. Patient will demonstrate 100% mastery of HEP 3. Patient will tolerate all 4 positions of 4-stage balance test for 10 seconds in order to decrease risk for falls and maximize safety of level and non-level surface ambulation Plan of Care/Treatment Plan: 1-2x/day, 7 days/week x 1 week. Plan of care has been reviewed with the PUBLIC WORKS INSPECTOR providing the service under Physical Therapy direction. Initiate Physical Therapy intervention for strengthening, bed mobility, transfers, gait, stairs, balance training, use of assistive device. DISCHARGE RECOMMENDATIONS: To home once medically stable. At this time do not anticipate the need for additional PT services once goals are met in this setting unless there is a significant down grade in his functional status TREATMENT CODE/TIME: 9716 1 x 23 minutes beginning at 10:54 AM. Thank you very much for this referral. Zofia Foster PT, DPT, CLT [facility]
--- NOTE | 2019-01-26 12:13 | PT.INNT ---
Date of service: 01/26/19 Time of Service: 12:13 PT Notes 01/26/19 Patient refused PT session, stating I don't feel good today. When asked when a better time would be for patient, he states not today. Will attempt to resume PT services tomorrow morning.
[2019-01-26 13:54] LABS: Bilirubin Negative (Negative); Blood Negative (Negative); Clarity Clear (Clear); Glucose Negative (Negative); Ketones Negative (Negative); Leukocyte Esterase Negative (Negative); Nitrite Negative (Negative); Specific Gravity 1.015 (1.005-1.025); Urobilinogen 0.2 EU/dL (Up TO 0.2); pH 7.5 (5-8)
[2019-01-26] MEDS: lamoTRIgine 25 MG TAB PO (20:03)
[2019-01-26] MEDS: Lidocaine 5% Patch 2 PATCH TP (20:04)
[2019-01-26] MEDS: DULoxetine 20 MG CAP 80 MG PO (21:34)
[2019-01-27] VITALS (9 sets, daily range): BP systolic 135–169; BP diastolic 84–107; PULSE 90–110; RESP 19–20; TEMP 36.7–38.9; O2SAT 94–97
[2019-01-27] MEDS: oxyCODONE 15 MG TAB 30 MG PO ×6 (01:50→20:30)
[2019-01-27] MEDS: VANCOMYCIN 1,500 MG in Normal Saline 250 ML 166.6666 MG IVPB (02:46)
[2019-01-27] MEDS: Acetaminophen 500 MG TAB 1000 MG PO ×3 (03:36→19:45)
[2019-01-27] MEDS: Ketorolac 15 MG/ML VIAL IVP ×4 (05:44→23:46)
[2019-01-27] MEDS: Normal Saline Flush 10 ML SYR IVP ×6 (05:45→23:46)
--- NOTE | 2019-01-27 06:59 | NUR.NOTE ---
Patient state his clonidine patch fell off last evening because he was sweating a lot. Charge nurse informed also pharmacy.
[2019-01-27] MEDS: cloNIDine 0.1 MG PATCH TD (09:09)
[2019-01-27] MEDS: Lisinopril 10 MG TAB PO (09:10)
[2019-01-27] MEDS: amLODIPine 10 MG TAB PO (09:10)
[2019-01-27] MEDS: Docusate Sodium 100 MG CAP PO ×2 (09:10→19:46)
[2019-01-27] MEDS: Pantoprazole 40 MG TABCR PO ×2 (09:13→19:46)
[2019-01-27] MEDS: Cholecalciferol (Vitamin D3) 1,000 UNIT TAB 1000 UNITS PO (09:13)
[2019-01-27] MEDS: Lactobacillus Acidophilus CAP 1 CAP PO ×3 (09:13→19:46)
[2019-01-27] MEDS: Lidocaine Patch Removal 2 EACH TD (09:14)
--- NOTE | 2019-01-27 09:40 | NUR.NOTE ---
Nursing Note: Pt wrote #1 loser and complete waste of space on his white boards in his room. Nursing asked if it was okay to erase the statements and informed Pt that they were not true. Pt agreed to let nursing erase the negative things that he wrote about himself. This scribe expressed feelings of concern towards patient and let him know that no one here thinks he's a loser or a waste of space.
[2019-01-27 10:34] LABS: Abs Immature Grans 0.03 k/cumm (0.0-0.09); Absolute Basophil Count 0.02 k/cumm (0.0-0.2); Absolute Eosinophil Count 0.28 k/cumm (0.0-0.7); Absolute Lymphocyte Count 1.21 k/cumm (1.2-3.4); Absolute Monocyte Count 0.75 k/cumm (0.11-0.7); Absolute Neutrophil Count 5.13 k/cumm (1.2-6.7); Basophils % 0.3; Eosinophils % 3.8; HCT 35.3 % (40.0-50.0); HGB 11.4 g/dL (13.5-17.5); Immature Grans % 0.4; Lymphocytes % 16.3; Mean Corp. HGB Concentration 32.3 g/dL (32.0-36.0); Mean Corpuscular Hemoglobin 26.2 pg (27.0-33.0); Mean Corpuscular Volume 81.1 fL (80-95); Mean Platelet Volume 9.1 fL (8.0-11.0); Monocytes % 10.1; Neutrophils % 69.1; Platelet Count 188 x1000/uL (130-400); RBC 4.35 m/cumm (4.50-6.00); RBC Distribution Width 16.3 % (11.8-14.1); White Blood Cell Count 7.42 k/cumm (4.4-10.8)
[2019-01-27 10:44] LABS: Anion Gap 10.7 mmol/L (3-11); BUN 21 mg/dL (7-18); CO2 26.3 mmol/L (21.0-32.0); CREATININE 1.11 mg/dL (0.70-1.30); Chloride 103 mmol/L (98-107); Glucose 110 mg/dL (70-100); Sodium 140 mmol/L (136-145)
[2019-01-27] MEDS: LORazepam 1 MG TAB PO ×2 (11:32→15:41)
[2019-01-27] MEDS: Mylanta Suspension 30 ML CUP PO (11:32)
--- NOTE | 2019-01-27 13:20 | PT.INNT ---
Date of service: 01/27/19 Time of Service: 13:20 PT Notes 01/27/19 Patient refused PT services x2 today, stating I'm too sick, I can't today. Will attempt to resume PT services tomorrow morning.
[2019-01-27] MEDS: Bacitracin 1 PACKET (16:35)
[2019-01-27] MEDS: Lidocaine 5% Patch 2 PATCH TP (19:43)
[2019-01-27] MEDS: lamoTRIgine 25 MG TAB PO (19:46)
[2019-01-27] MEDS: DULoxetine 20 MG CAP 80 MG PO (22:54)
[2019-01-28] VITALS (10 sets, daily range): BP systolic 118–140; BP diastolic 79–95; PULSE 97–102; RESP 18–20; TEMP 36.7–38.5; O2SAT 94–96
[2019-01-28] MEDS: oxyCODONE 15 MG TAB 30 MG PO ×6 (00:29→21:05)
--- NOTE | 2019-01-28 01:14 | NUR.NOTE ---
Nursing Note: Pt was not happy of having Oxacillin and Vancomycin schedules, will discuss with day staff today. Temp reached to 38.8, Tylenol as scheduled given and temp rechecked was 37.6. Medicated with oxycodone as requested every 4 hrs. with some relief. Cymbalta was given at 2225 hrs. when he woke up. CN RN discussed with pt about importance of antibiotic which he was about to refuse to get it. One hour lapsed was provided. Vancomycin was given at 2130 hrs. Pt was anxious and still going down with cane and midline on the rt. arm well covered. Gait was not steady and sweaty noted. His friend is staying overnight in his room. Closely monitored.
[2019-01-28] MEDS: Acetaminophen 500 MG TAB 1000 MG PO ×3 (04:13→20:05)
[2019-01-28] MEDS: Normal Saline Flush 10 ML SYR IVP ×6 (04:13→22:12)
--- NOTE | 2019-01-28 04:51 | NUR.NOTE ---
Patient passed hard stool, small amount of blood noted in same.
[2019-01-28] MEDS: Ketorolac 15 MG/ML VIAL IVP (05:27)
[2019-01-28] MEDS: Lactobacillus Acidophilus CAP 1 CAP PO ×3 (08:15→20:05)
[2019-01-28] MEDS: Pantoprazole 40 MG TABCR PO ×2 (08:15→20:06)
[2019-01-28] MEDS: Docusate Sodium 100 MG CAP PO ×2 (08:16→20:05)
[2019-01-28] MEDS: Lisinopril 10 MG TAB PO (08:16)
[2019-01-28] MEDS: amLODIPine 10 MG TAB PO (08:16)
[2019-01-28] MEDS: Cholecalciferol (Vitamin D3) 1,000 UNIT TAB 1000 UNITS PO (08:16)
[2019-01-28] MEDS: Lidocaine Patch Removal 2 EACH TD (08:17)
--- NOTE | 2019-01-28 11:11 | PT.INNT ---
Date of service: 01/28/19 Time of Service: 11:12 PT Notes 01/28/19 Patient refused PT session stating I'm sick. Patient was made aware that after 3 days of refusal to participate, he could potentially be discharged from PT services, he responds yeah, that's okay.
[2019-01-28 11:19] LABS: Abs Immature Grans 0.02 k/cumm (0.0-0.09); Absolute Basophil Count 0.02 k/cumm (0.0-0.2); Absolute Eosinophil Count 0.26 k/cumm (0.0-0.7); Absolute Lymphocyte Count 1.19 k/cumm (1.2-3.4); Absolute Monocyte Count 0.67 k/cumm (0.11-0.7); Absolute Neutrophil Count 4.54 k/cumm (1.2-6.7); Basophils % 0.3; Eosinophils % 3.9; HCT 33.8 % (40.0-50.0); HGB 10.6 g/dL (13.5-17.5); Immature Grans % 0.3; Lymphocytes % 17.8; Mean Corp. HGB Concentration 31.4 g/dL (32.0-36.0); Mean Corpuscular Hemoglobin 25.7 pg (27.0-33.0); Mean Corpuscular Volume 81.8 fL (80-95); Mean Platelet Volume 9.7 fL (8.0-11.0); Neutrophils % 67.7; Platelet Count 173 x1000/uL (130-400); RBC 4.13 m/cumm (4.50-6.00); RBC Distribution Width 16.4 % (11.8-14.1)
[2019-01-28 11:43] LABS: ALT 25 U/L (12-78); AST 20 U/L (15-37); Alkaline Phosphatase 117 U/L (46-116); Anion Gap 10.5 mmol/L (3-11); BUN 21 mg/dL (7-18); Bilirubin, Total 0.5 mg/dL (0.2-1.0); CO2 25.5 mmol/L (21.0-32.0); CREATININE 1.24 mg/dL (0.70-1.30); Calcium 8.5 mg/dL (8.5-10.1); Chloride 104 mmol/L (98-107); Glucose 131 mg/dL (70-100); Sodium 140 mmol/L (136-145); Total Protein 7.3 g/dL (6.4-8.2)
[2019-01-28] MEDS: Acetaminophen 325 MG TAB 650 MG PO (18:04)
[2019-01-28] MEDS: lamoTRIgine 25 MG TAB PO (20:05)
[2019-01-28] MEDS: Lidocaine 5% Patch 2 PATCH TP (20:06)
[2019-01-28] MEDS: DULoxetine 20 MG CAP 80 MG PO (22:11)
[2019-01-29] VITALS (7 sets, daily range): BP systolic 145–151; BP diastolic 79–82; PULSE 84–94; RESP 18; TEMP 35.5–38; O2SAT 92–94
[2019-01-29] MEDS: oxyCODONE 15 MG TAB 30 MG PO ×6 (02:16→22:08)
[2019-01-29] MEDS: Acetaminophen 500 MG TAB 1000 MG PO ×3 (04:14→19:42)
[2019-01-29 06:30] LABS: Vancomycin, Trough 13.7 ug/mL (10.0-20.0)
[2019-01-29] MEDS: Normal Saline Flush 10 ML SYR IVP ×5 (06:43→19:42)
[2019-01-29] MEDS: Lactobacillus Acidophilus CAP 1 CAP PO ×3 (08:35→19:43)
[2019-01-29] MEDS: Cholecalciferol (Vitamin D3) 1,000 UNIT TAB 1000 UNITS PO (08:35)
[2019-01-29] MEDS: Lisinopril 10 MG TAB PO (08:35)
[2019-01-29] MEDS: amLODIPine 10 MG TAB PO (08:35)
[2019-01-29] MEDS: Pantoprazole 40 MG TABCR PO ×2 (08:35→19:42)
[2019-01-29] MEDS: Docusate Sodium 100 MG CAP PO ×2 (08:35→19:43)
[2019-01-29] MEDS: Lidocaine Patch Removal 2 EACH TD (08:37)
[2019-01-29] MEDS: Ibuprofen 800 MG TAB PO (14:33)
--- NOTE | 2019-01-29 16:49 | NUR.NOTE ---
Nursing Note: patient denies chest pain , sob , hip pain is his baseline 7, patient had a temp of 38 at about 1420 recheck now for 26.3, ceftriaxone added to his abx treatment, importance of treatment addressed with patient, he gives nurse an eyeroll, but agrees to follow treatment
[2019-01-29] MEDS: cefTRIAXone 2 GM/50 ML BAG IVPB (17:13)
[2019-01-29] MEDS: lamoTRIgine 25 MG TAB PO (19:42)
[2019-01-29] MEDS: DULoxetine 20 MG CAP 80 MG PO (22:09)
[2019-01-30] VITALS (7 sets, daily range): BP systolic 120–155; BP diastolic 78–89; PULSE 89–109; RESP 16–18; TEMP 36.5–38.2; O2SAT 89–94
[2019-01-30] MEDS: oxyCODONE 15 MG TAB 30 MG PO ×5 (02:06→18:48)
[2019-01-30] MEDS: Normal Saline Flush 10 ML SYR IVP ×5 (03:40→12:15)
[2019-01-30] MEDS: Acetaminophen 500 MG TAB 1000 MG PO ×2 (03:41→12:14)
[2019-01-30 07:35] LABS: Abs Immature Grans 0.02 k/cumm (0.0-0.09); Absolute Basophil Count 0.02 k/cumm (0.0-0.2); Absolute Lymphocyte Count 0.89 k/cumm (1.2-3.4); Absolute Monocyte Count 0.81 k/cumm (0.11-0.7); Absolute Neutrophil Count 6.16 k/cumm (1.2-6.7); Basophils % 0.2; Eosinophils % 3.7; HGB 11.4 g/dL (13.5-17.5); Immature Grans % 0.2; Lymphocytes % 10.9; Mean Corp. HGB Concentration 32.6 g/dL (32.0-36.0); Mean Corpuscular Hemoglobin 26.1 pg (27.0-33.0); Mean Corpuscular Volume 80.3 fL (80-95); Mean Platelet Volume 9.7 fL (8.0-11.0); Monocytes % 9.9; Neutrophils % 75.1; Platelet Count 197 x1000/uL (130-400); RBC 4.36 m/cumm (4.50-6.00); RBC Distribution Width 16.4 % (11.8-14.1)
[2019-01-30 07:46] LABS: BUN 19 mg/dL (7-18); C-Reactive Protein 18.21 mg/dL (0.0-0.3); CREATININE 1.48 mg/dL (0.70-1.30); Calcium 8.9 mg/dL (8.5-10.1); Chloride 102 mmol/L (98-107); Estimated GFR 51.63 (mL/min/1.73m2); Glucose 139 mg/dL (70-100); Magnesium 2.1 mg/dL (1.8-2.4); Sodium 138 mmol/L (136-145)
--- NOTE | 2019-01-30 08:07 | NUR.NOTE ---
Nursing Note: There are new orders this morning on the patient. One for a sputum collection, a flu swab for both A&B. A 2 view chest Xray. I grabbed the supplies necessary for the flu and sputum collection, then went to the patients room. I spoke to the patient explained what tests were going to be performed. I explained that he had different bacteria growing, and that we needed to find the root cause. As I attempted the perform the nasal swab for the flu he yells no and slaps my hand away. I again explain the necessity for performing the test for this patient , this time he pinches his nose shut, states, I don't have the flu, and says no again. I tried one last attempt to educate the patient on the necessity for performing the flu test, he again refused. He also has a chest Xray ordered, The rationale for this is explained to the patient, he tells this nurse I had an Xray 2 days ago. It was explained that changes can happen even overnight. He said he had an Xray two days ago and did not need another one. He was reminded that he has been spiking fevers, and he is sick and to provide the best treatment the source needs to be identified. I don't have a fever now, I need to sleep! You say you are going to let me sleep, and bang! you are starting another medication, let me alone! This nurse withdraws at this point and advises CCC of patients decisions, will try to appoaach patient again at a later time.
[2019-01-30] MEDS: Cholecalciferol (Vitamin D3) 1,000 UNIT TAB 1000 UNITS PO (08:16)
[2019-01-30] MEDS: Pantoprazole 40 MG TABCR PO (08:16)
[2019-01-30] MEDS: Docusate Sodium 100 MG CAP PO (08:16)
[2019-01-30] MEDS: amLODIPine 10 MG TAB PO (08:16)
[2019-01-30] MEDS: Lisinopril 10 MG TAB PO (08:16)
[2019-01-30] MEDS: Lidocaine Patch Removal 2 EACH TD (08:17)
[2019-01-30] MEDS: Lactobacillus Acidophilus CAP 1 CAP PO ×2 (08:17→13:41)
[2019-01-30] MEDS: LORazepam 2 MG/ML VIAL 1 MG IVP (10:07)
[2019-01-30] MEDS: Ondansetron 4 MG/2 ML VIAL IVP (10:08)
--- NOTE | 2019-01-30 10:20 | NUR.NOTE ---
At approximately 08:15 this morning nursing went in to assess and medicate patient. Patient declined going to X-ray and getting labs drawn. Nursing went to administer IV antibiotic and patient declined the antibiotic. Nursing discussed the importance of getting antibiotics on time, and the patient verbalized an understanding but continued to decline. Nursing wrapped the patient's IV per the patient's plan of care and the patient became agitated, asking Why are you wrapping it, it should only be wrapped when I go outside Nursing explained that this has been standard practice and left. At approximately 09:30 nursing returned to see if patient would take IV antibiotics, which he agreed to, but had taken the wrap off of his IV. Nursing Note:
--- NOTE | 2019-01-30 10:56 | DI.CT_ITS ---
SYMPTOMS/DIAGNOSIS: COUGH, FEVER, PSOAS ABSCESS CHEST CT: The lungs are clear throughout. No pulmonary nodules or adenopathy is seen. The heart size is normal. There is no visible aortic or coronary artery calcification. No compression fractures are seen. IMPRESSION: Negative chest CT. ABDOMEN AND PELVIC CT: Comparison is made with [id number]. The liver is again noted to show fatty infiltration. There is no biliary dilatation. The spleen is enlarged, unchanged. The pancreas and adrenals are unremarkable. There has been continued decrease in size of previous left psoas abscess. Minimal amount of residual abscess collection is seen inferiorly near the lesser trochanter. There are no new abscesses. There is no bowel dilatation or inflammatory change. There is no free air or free fluid. The bladder and prostate are unremarkable. There is hardware in the lower lumbar spine. IMPRESSION: Decreased size of left psoas abscess. No new abscess or other inflammatory change is seen.
--- NOTE | 2019-01-30 11:14 | PDOC.CMPRO ---
Care Management Progress Note S/O: Jason is lying in bed and states he does not feel well. Could not eat his breakfast. A: 43 y.o male admitted to [facility] for shelter IV Antibiotic therapy to treat PSOAS Abscess. He is not responding to current treatment. Blood culture results Positive for Strep, Neisseria and Staph species. P: Transfer to tertiary Care when bed is available. Jason would prefer [facility] but will agree to return to [facility] if theyhave a bed and [facility] does not. CT with contrast ordered today.
--- NOTE | 2019-01-30 11:23 | CMPROGNOTE_ITS ---
Care Management Progress Note S/O: Jason is lying in bed and states he does not feel well. Could not eat his breakfast. A: 43 y.o male admitted to [facility] IV Antibiotic therapy to treat PSOAS Abscess. He is not responding to current treatment. Blood culture results Positive for Strep, Neisseria and Staph species. P: Transfer to tertiary Care when bed is available. Jason would prefer [facility] but will agree to return to [facility] if [facility] a bed and [facility] does not. CT with contrast ordered today.
--- NOTE | 2019-01-30 11:42 | DI.VRAD_ITS ---
Addendum created by Corey Calloway MD on 01/30/2019 12:04:53 PM EDT THIS REPORT CONTAINS FINDINGS THAT MAY BE CRITICAL TO PATIENT CARE. The findings were verbally communicated via telephone conference with BENNY RIOS at 12:04 PM EDT on 01/30/2019. The findings were acknowledged and understood. Comparison is made to previous study from 01/17/2019. The abnormalities in the left iliopsoas and retroperitoneum are stable in appearance Initial report created on 01/30/2019 11:42:24 AM EDT EXAM: CT Chest With Contrast EXAM DATE/TIME: 01/30/2019 9:48 AM CLINICAL HISTORY: 43 years old, male; Other: Iv contrast only - cough, fever, psoas abscess TECHNIQUE: Imaging protocol: Axial computed tomography images of the chest with intravenous contrast. Coronal and sagittal reformatted images were created and reviewed. Radiation optimization: All CT scans at this facility use at least one of these dose optimization techniques: automated exposure control; mA and/or kV adjustment per patient size (includes targeted exams where dose is matched to clinical indication); or iterative reconstruction. Contrast material: OMNIPAQUE 350; Contrast volume: 100 ml; Contrast route: IV; COMPARISON: CR XR CHEST 2V PA LATERAL 01/26/2019 9:24 AM FINDINGS: Lungs: Unremarkable. No consolidation. No masses. Pleural space: Unremarkable. No pneumothorax. No pleural effusion. Heart: Unremarkable. No cardiomegaly. No pericardial effusion. Aorta: Unremarkable. No aortic aneurysm. Lymph nodes: Unremarkable. No enlarged lymph nodes. Bones/joints: Unremarkable. No acute fracture. Soft tissues: Unremarkable. IMPRESSION: No acute findings. EXAM: CT Abdomen and Pelvis With Contrast EXAM DATE/TIME: 01/30/2019 9:48 AM CLINICAL HISTORY: 43 years old, male; Other: Iv contrast only - cough, fever, psoas abscess TECHNIQUE: Imaging protocol: Axial computed tomography images of the abdomen and pelvis with intravenous contrast. Coronal and sagittal reformatted images were created and reviewed. Radiation optimization: All CT scans at this facility use at least one of these dose optimization techniques: automated exposure control; mA and/or kV adjustment per patient size (includes targeted exams where dose is matched to clinical indication); or iterative reconstruction. Contrast material: OMNIPAQUE 350; Contrast volume: 100 ml; Contrast route: IV; COMPARISON: CR XR CHEST 2V PA LATERAL 01/26/2019 9:24 AM FINDINGS: Liver: Normal. No mass. Gallbladder and bile ducts: Normal. No calcified stones. No ductal dilation. Pancreas: Normal. No ductal dilation. Spleen: Splenomegaly 14.7 cm. Impression Adrenals: Normal. No mass. Kidneys and ureters: Normal. No hydronephrosis. Stomach and bowel: Diverticulosis of the rectosigmoid. No diverticulitis. Appendix: Surgical clips in the cecum consistent with appendectomy. Intraperitoneal space: Normal. No free air. No significant fluid collection. Vasculature: Normal. No abdominal aortic aneurysm. Lymph nodes: Small peripancreatic nodes Bladder: Unremarkable as visualized. Reproductive: Unremarkable as visualized. Bones/joints: Internal fixation device at L3 and L4. Anterior fusion of L4 and L5. Surgical device at L3/L4 and L4/L5. Soft tissues: The left iliopsoas muscle is increased in size compared to the right. There are inflammatory changes adjacent to the left psoas and in the left retroperitoneum. This may represent hemorrhage or infection. IMPRESSION: 1. The left iliopsoas muscle is increased in size compared to the right. There are inflammatory changes adjacent to the left psoas and in the left retroperitoneum. This may represent hemorrhage or infection. 2. Internal fixation device at L3 and L4. Anterior fusion of L4 and L5. Surgical device at L3/L4 and L4/L5. Dictated and Authenticated by: Corey Calloway MD. Ordering:REX Walker MD
[2019-01-30] MEDS: Normal Saline 1,000 ML 150 ML IV (12:15)
[2019-01-30 12:49] LABS: Vancomycin, Trough 31.6 ug/mL (10.0-20.0)
[2019-01-30] MEDS: Ibuprofen 800 MG TAB PO (13:41)
--- NOTE | 2019-01-30 14:36 | NUR.NOTE ---
Nursing Note: Patients friend has become irate this afternoon, yelling at various staff, telling staff he should not become sicker while in the hospital. this n7urse spoke to him in a quiet tone explaining what is going on at this point in time. he did calm down at this time, patient has become more cooperative
[2019-01-30] MEDS: cefTRIAXone 2 GM/50 ML BAG IVPB (15:03)
--- NOTE | 2019-01-30 16:02 | INDS_ITS ---
Date of service: 01/30/19 PT Notes Inpatient Physical Therapy Discharge Summary Dates: 01/30/2019 Dates of Service: 01/25/2019 only This is a clinical summary of care provided on the duration of dates listed above. No charge was made in the completion of this documentation. Referring Doctor: Jessica Abreu NP PT Orders: PT CONSULT: Evaluate and treat Precautions: Standard Patient Profile/Admitting Diagnosis: Orders received for this 43-year-old patient with past medical history significant for traumatic brain injury, PTSD, history of alcohol abuse, depression, affective personality disorder and bipolar disorder, with a diagnosis of left hip abscess and is currently on antibiotic treatment. He has been admitted for quite some time now and was historically on privileges and able to walk around the facility but recently had a fall in the bathroom. He has been having some weakness through the LLE and orders were placed for evaluation of his functional mobility and strength before he is restored to walking status. PMHX: Medical History Affective personality disorder (Chronic) Anxiety (Chronic) Bipolar 2 disorder (Chronic) Depression (Chronic) GERD (gastroesophageal reflux disease) (Chronic) HTN (hypertension) (Chronic) Hepatitis C (Chronic) History of alcohol abuse (Chronic) History of intravenous drug abuse (Chronic) Hyperlipidemia (Chronic) Kidney stones (Chronic) PTSD (post-traumatic stress disorder) (Chronic) TBI (traumatic brain injury) (Chronic) Surgical History Appendectomy Colonoscopy - MAC (11/14/16) EGD - MAC (11/14/16) Rotator Cuff Repair Spinal Fusion Vasectomy Social History/Home Situation: Historically lives in [facility] with a room mate. Equipment Owned/DME: Cane Subjective: NT Objective: Mental Status: NT Pain: NT ROM: Right Upper Extremity: WFL Left Upper Extremity: WFL Right Lower Extremity: WFL Left Lower Extremity: Hip flexion to 100, knee extension to 0, knee flexion to 120 degrees and beyond. Ankle motion within functional limits. Strength: Right Upper Extremity: Globally 5/5 Left Upper Extremity: Globally 5/5 Right Lower Extremity: GLobally 5/5 Left Lower Extremity: Hip flexion 3-/5 due to pain, Quads 3-/5 due to pain, HS 4-/5 no pain, Dorsiflexion 4-/5, Plantar flexion 4-/5. Hip abduction isometric 4/5. Bed Mobility/Transfers: Supervision Supine-sit: I Sit-stand: I Stand-sit: I Gait: Supervision with cane and supervision patient able to ambulate 20 feet. He is able to walk backwards a few steps, negotiate single leg balance on right, and lateral step to negotiate in room obstacle for safe transfer. Patient was previously observed to negotiate level and on level surface. Balance: Static Sitting: Normal Dynamic Sitting: Normal Static Standing:good Dynamic Standing: good Special Tests: Mobility Limitations Standardized Measure [facility] AM-PAC 6 clicks Basic Mobility Inpatient Short Form: Raw Score: 23 CMS Score: 15.86 4 stage balance test: Patient was able to assume positions 1 and 2 for 10 seconds. Was able to do tandem stance with right foot leading for 10 seconds position with left foot leading. Able to stand on right 10 seconds unable to do so on the left side. Informed Consent/Education: Patient instructed in purpose of PT consult and plan of care. Patient is agreeable to reviewing exercises for strengthening and expressed his cooperation with balance training. ASSESSMENT: Patient has refused skilled physical therapy services offered several times by [employer] on 01/26/2019, 01/27/2019, and 01/28/2019 stating that he is okay without any services. Goals X1 week 1. Gait independent with cane up to 1000 feet and all types of floor and ground surfaces using least restrictive device. NOT MET 2. Patient will demonstrate 100% mastery of HEP. NOT MET 3. Patient will tolerate all 4 positions of 4-stage balance test for 10 seconds in order to decrease risk for falls and maximize safety of level and non-level surface ambulation. NOT MET DISCHARGE RECOMMENDATIONS: To home once medically stable. At this time do not anticipate the need for additional PT services once goals are met in this setting unless there is a significant down grade in his functional status TREATMENT CODE/TIME: NC. Thank you very much for this referral. Zofia Foster PT, DPT, CLT [facility]
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
[2019-01-30] MEDS: LORazepam 1 MG TAB PO (18:48)
[2019-01-31 13:16] LABS: Lyme Ab w Rflx to Lyme Confirm Negative
[2019-01-31 22:53] LABS: Anaplasma phagocytophilum Negative (Negative); B. miyamotoi PCR Negative (Negative); Babesia divergens/MO-1 Negative (Negative); Babesia duncani Negative (Negative); Babesia microti Negative (Negative); Ehrlichia chaffeensis Negative (Negative); Ehrlichia ewingii/canis Negative (Negative); Ehrlichia muris eauclairensis Negative (Negative)
== END 2019-01-30 19:21 | disposition short-term general hospital (02) | DRG 314 ==
PROVIDERS: Internal Medicine; Admitting Provider Nurse Practitioner Family; PCP Nurse Practitioner Family; Visit Provider Internal Medicine
DX: T80.211A Bloodstream infection due to central venous catheter, initial encounter (principal); K68.12 Psoas muscle abscess; A40.8 Other streptococcal sepsis; A41.1 Sepsis due to other specified staphylococcus; A41.59 Other Gram-negative sepsis; G06.2 Extradural and subdural abscess, unspecified; R45.851 Suicidal ideations; Z16.23 Resistance to quinolones and fluoroquinolones; Z16.29 Resistance to other single specified antibiotic; Z16.19 Resistance to other specified beta lactam antibiotics; I10 Essential (primary) hypertension; E78.5 Hyperlipidemia, unspecified; Z79.2 Long term (current) use of antibiotics; M54.5 Low back pain; M25.552 Pain in left hip; F19.21 Other psychoactive substance dependence, in remission; F32.9 Major depressive disorder, single episode, unspecified; F41.9 Anxiety disorder, unspecified; Z87.820 Personal history of traumatic brain injury
CPT/HCPCS: 36410; 36415; 36569; 74177; 80048; 80053; 87040; 87077; 87798; 97161; 97162; 99253; 99304; 99316; 71046; 71260; 80202; 81003; 83605; 83735; 85025; 86140; 86618; 87070; 87186; J1885; J2060; J2405; J2700; J3370; J3490; J7509

== ENCOUNTER 2019-03-06 10:39 | Emergency (ER) | payer MEDICARE, MEDICAID, SELFPAY ==
[2019-03-06] VITALS (13 sets, daily range): BP systolic 154–179; BP diastolic 98–103; PULSE 67–80; RESP 11–27; TEMP 36.5; O2SAT 96–100
--- NOTE | 2019-03-06 11:12 | DI.CT_ITS ---
SYMPTOM/DIAGNOSIS: LT CHEST PAIN, COUGH, TENDERNESS, ? PE CHEST CTA: CT angiography was performed with multi slice acquisition and multi planar and 3D reconstruction. There is no evidence of pulmonary emboli or aortic dissection. There are no pleural or pericardial effusions. The lungs are expiratory and show mild motion. No infiltrates are identified. IMPRESSION: No evidence of pulmonary emboli or other acute abnormality.
--- NOTE | 2019-03-06 11:13 | ED.GENADUL_ITS ---
Discharge Plan Disposition Patient Disposition: HOME Condition: Improving Discharge Details Chief Complaint: Chest Pain Clinical Impression: Atypical chest pain, Chronic infection of left hip, currently on antibiotics Primary Care Provider: Ashely Mueller ED Provider: Neida Stephens Home Meds and New Rx's Prescriptions: Continued amlodipine 5 mg Tablet 5 mg PO DAILY Qty: 30 RF: 0 docusate sodium [Colace] 100 mg Capsule 100 mg PO BID Qty: 60 RF: 0 pantoprazole 40 mg Tablet,Delayed Release (Dr/Ec) 40 mg PO BID@ Qty: 60 RF: 0 ibuprofen [IBU] 800 mg Tablet 800 mg PO TID PRN (Reason: Pain) Qty: 90 RF: 3 clonidine 0.1 mg/24 hr Patch Weekly See Rx Instructions .ROUTE .COMPLEX RF: 0 acidophilus-pectin, citrus 25 million cell -100 mg Tablet 1 cap PO TID Qty: 30 RF: 0 lidocaine [Lidoderm] 5 % adhesive patch,medicated 1 patch topical QAM Qty: 30 RF: 0 duloxetine [Cymbalta] 30 mg Capsule,Delayed Release(Dr/Ec) 30 mg PO DAILY Qty: 14 RF: 0 oxycodone 15 mg tablet 30 mg PO Q4H MDD 180mg Qty: 60 RF: 0 acetaminophen 500 mg Tablet 1,000 mg PO Q8H PRN PRNRF: 0 lorazepam 1 mg Tablet 1 mg PO Q4H PRN PRNRF: 0 ketorolac 15 mg/mL Syringe 15 mg IV Q6H PRN PRNRF: 0 cholecalciferol (vitamin D3) 1,000 unit Tablet 1,000 unit PO DAILY RF: 0 sodium chloride 0.9 % (flush) [Normal Saline Flush] Syringe 30 ml IV PRN PRNRF: 0 acetaminophen [Mapap Extra Strength] 500 mg Tablet 1,000 mg PO Q8H Qty: 0 RF: 0 lamotrigine [Lamictal] 25 mg Tablet 25 mg PO DAILY@1999 Qty: 0 RF: 0 lidocaine [Lidoderm] 5 % Adhesive Patch,Medicated 2 patch topical Q24H Qty: 0 RF: 0 lorazepam 1 mg Tablet 1 mg PO Q4H PRN PRNQty: 0 RF: 0 ceftriaxone in dextrose,iso-os 2 gram/50 mL Piggyback 2 g IVPB Q24H Qty: 0 RF: 0 ondansetron HCl (PF) 4 mg/2 mL Solution 4 mg IVP Q4H PRN PRNQty: 0 RF: 0 Discharge Instructions Instructions: Chest Pain (ED) Additional Instructions: Take antibiotics until finished. Call your doctors at [facility] tomorrow to schedule follow-up appointment for reevaluation. Call your primary care doctor to schedule follow-up appointment for reevaluation and for referral for stress test if your symptoms do not improve or worsen. Return immediately to the emergency department if you develop any worsening or new concerning symptoms. Discharge Data Discharge Physician: Neida Stephens Medical Decision Making 43yo M w/ a h/o htn, gerd, TBI, chronic L psoas abscess, paraspinal abscess, ep idural abscess who presents to the ED w/ a complaint of left-sided chest pain and shortness of breath for the past 2 days. He started cefadroxil and probenecid for a reinfection of his chronic left groin psoas infection 2 days ago. He also admits to cough. His left chest is tender to palpation and worse with movement. Presentation appears most likely consistent with muscular skeletal pain, also bronchitis, pneumonia a possibility. It appears less likely consistent with PE, but due to recent left groin surgeries, will obtain a CT chest. We will also obtain screening labs, lactate and blood cultures. Patient initially refused IV fluids and dose of Toradol but eventually was agreeable. EKG notes a rate of 76, sinus, right bundle branch block, left anterior fascicular block. No acute ST ischemic changes. 1330 --Labs and imaging reviewed and unremarkable. Normal white blood cell co unt. Troponin negative. Lactate negative. CT chest negative. Patient feels much better and is requesting to go home. Able to obtain blood cultures drawn at [facility] 2 days ago which have been negative for the past 2 days. Wound cultures notes staph aureus and is pansensitive. Patient was advised to follow-up with his primary care doctor and specialist at [facility] for reevaluation. He is instructed to return here at any time if worse. Medical Records Medical records reviewed: Yes I reviewed the patient's medical records. Imaging Data Radiologic Study: Radiologist's impression: CT Angiography Chest With Contrast EXAM DATE/TIME: 03/06/2019 11:14 AM CLINICAL HISTORY: 43 years old, male; Other: L chest pain, cough, tender, R/O pe TECHNIQUE: Imaging protocol: Axial computed tomographic angiography images of the chest with intravenous contrast using CT angiography protocol. Coronal and sagittal reformatted images were created and reviewed. 3D rendering: MIP reconstructed images were created and reviewed. Radiation optimization: All CT scans at this facility use at least one of these dose optimization techniques: automated exposure control; mA and/or kV adjustment per patient size (includes targeted exams where dose is matched to clinical indication); or iterative reconstruction. Contrast material: OMNIPAQUE 350;Contrast volume: 100 ml;Contrast route: IV; COMPARISON: CT CHEST FOR PULMONARY EMBOLUS 05/18/2017 12:16 PM FINDINGS: Pulmonary arteries: No evidence of pulmonary embolus to the segmental level. Aorta: No aneurysm of the aorta. No dissection of the aorta. Lungs: Bibasilar atelectasis Pleural space: Unremarkable. No pneumothorax. No pleural effusion. Heart: Unremarkable. No cardiomegaly. No pericardial effusion. Lymph nodes: Unremarkable. No enlarged lymph nodes. Bones/joints: Unremarkable. No acute fracture. Soft tissues: Unremarkable. IMPRESSION: 1. No evidence of pulmonary embolus to the segmental level. 2. No aneurysm of the aorta. 3. No dissection of the aorta. Lab Data Lab results reviewed: Yes I reviewed the patient's lab results. 03/06/19 12:06 Blood Blood Culture - Pending 03/06/19 11:28 Blood Blood Culture - Pending Laboratory Tests Range/Units 03/06/19 03/06/19 03/06/19 11:28 11:28 11:28 WBC (4.4-10.8) k/cumm 6.96 RBC (4.50-6.00) m/cumm 4.45 L Hgb (13.5-17.5) g/dL 11.6 L Hct (40.0-50.0) % 35.9 L MCV (80-95) fL 80.7 MCH (27.0-33.0) pg 26.1 L MCHC (32.0-36.0) g/dL 32.3 RDW (11.8-14.1) % 15.3 H Plt Count (130-400) x1000/uL 292 MPV (8.0-11.0) fL 9.0 Immature Gran % 0.3 Neutrophils % 68.4 Lymphocytes % 21.8 Monocytes % 5.9 Eosinophils % 3.2 Basophils % 0.4 Absolute Neutrophils (1.2-6.7) k/cumm 4.76 Absolute Lymphocytes (1.2-3.4) k/cumm 1.52 Absolute Monocytes (0.11-0.7) k/cumm 0.41 Absolute Eosinophils (0.0-0.7) k/cumm 0.22 Absolute Basophils (0.0-0.2) k/cumm 0.03 Sodium (136-145) mmol/L 139 Potassium (3.5-5.1) mmol/L 3.8 Chloride (98-107) mmol/L 102 Carbon Dioxide (21.0-32.0) mmol/L 26.7 Anion Gap (3-11) mmol/L 10.3 BUN (7-18) mg/dL 15 Creatinine (0.70-1.30) mg/dL 1.15 Estimated GFR/1.73 m2 (mL/min/1.73m2) >= 60.00 Glucose (70-100) mg/dL 109 H Lactate (0.6-1.4) mmol/l 1.1 Calcium (8.5-10.1) mg/dL 8.8 Magnesium (1.8-2.4) mg/dL 1.8 Total Bilirubin (0.2-1.0) mg/dL 0.4 AST (15-37) U/L 17 ALT (12-78) U/L 30 Alkaline Phosphatase (46-116) U/L 131 H Troponin I (0.00-0.06) ng/mL < 0.05 Total Protein (6.4-8.2) g/dL 7.9 Albumin (3.4-5.0) g/dL 3.4 ECG Data Attestation: I personally reviewed and interpreted this ECG (s) as follows: Interpretation: Rate of 76, sinus, right bundle branch block. Left anterior fascicular block. QTc 452. QRS 108. HPI General Mode of arrival: ambulatory . Date/Time Provider Initiated Documentation: 03/06/19 10:44 . Limitations to Documentation: no limitations . Information obtained by: patient . HPI Narrative: Patient is a 43-year-old male with a history of former IV drug use, hepatitis C, anxiety, chronic left hip infection complicated by abscess and multiple rounds of antibiotics who presents with chest pain for the past 2 days. Patient states 1 week ago his left hip wound opened up again it has been draining green pus. He states he followed up with Dr. Patton at [facility] 3 days ago and was started on cefadroxil and probenecid 2 days ago. No problem he states 2 days ago he started with left- sided chest pain that is intermittent, sharp without radiation and currently 7/10. He states the pain is worse with deep breath, movement and to palpation. He denies any known injury. He denies fever. He does admit to intermittent shortness of breath but denies any nausea vomiting or dizziness. He denies any recent travel. He states he has had multiple I&D's and surgeries to his left hip, last occurring a few months ago per Related Data Home Medications Medication Instructions Recorded Confirmed amlodipine 5 mg PO DAILY #30 tab 09/29/18 01/23/19 docusate sodium [Colace] 100 mg PO BID #60 cap 09/29/18 01/23/19 pantoprazole 40 mg PO BID@0730,1999 #60 tab 09/29/18 01/23/19 ibuprofen [IBU] 800 mg PO TID PRN #90 tab 11/13/18 01/23/19 clonidine See Rx Instructions .ROUTE .COMPLEX 12/16/18 01/23/19 acidophilus-pectin, citrus 1 cap PO TID #30 tab 12/24/18 01/23/19 duloxetine [Cymbalta] 30 mg PO DAILY #14 cap 12/24/18 01/23/19 lidocaine [Lidoderm] 1 patch TOPICAL QAM #30 each 12/24/18 01/21/19 oxycodone 30 mg PO Q4H #60 tab MDD 180mg 12/24/18 01/23/19 acetaminophen 1,000 mg PO Q8H PRN PRN 01/21/19 01/23/19 cholecalciferol (vitamin D3) 1,000 unit PO DAILY 01/21/19 01/23/19 ketorolac 15 mg IV Q6H PRN PRN 01/21/19 01/23/19 lorazepam 1 mg PO Q4H PRN PRN 01/21/19 01/23/19 sodium chloride 0.9 % (flush) 30 ml IV PRN PRN 01/21/19 01/23/19 [Normal Saline Flush] acetaminophen [Mapap Extra 1,000 mg PO Q8H #0 tab 01/30/19 Strength] ceftriaxone in dextrose,iso-os 2 g IVPB Q24H #0 ea 01/30/19 lamotrigine [Lamictal] 25 mg PO DAILY@1999 #0 tab 01/30/19 lidocaine [Lidoderm] 2 patch TOPICAL Q24H #0 ea 01/30/19 lorazepam 1 mg PO Q4H PRN PRN #0 tab 01/30/19 ondansetron HCl (PF) 4 mg IVP Q4H PRN PRN #0 ml 01/30/19 Previous Rx's Medication Instructions Recorded amlodipine 5 mg PO DAILY #30 tab 09/29/18 docusate sodium [Colace] 100 mg PO BID #60 cap 09/29/18 pantoprazole 40 mg PO BID@0730,1999 #60 tab 09/29/18 ibuprofen [IBU] 800 mg PO TID PRN #90 tab 11/13/18 acidophilus-pectin, citrus 1 cap PO TID #30 tab 12/24/18 duloxetine [Cymbalta] 30 mg PO DAILY #14 cap 12/24/18 lidocaine [Lidoderm] 1 patch TOPICAL QAM #30 each 12/24/18 oxycodone 30 mg PO Q4H #60 tab MDD 180mg 12/24/18 acetaminophen [Mapap Extra 1,000 mg PO Q8H #0 tab 01/30/19 Strength] ceftriaxone in dextrose,iso-os 2 g IVPB Q24H #0 ea 01/30/19 lamotrigine [Lamictal] 25 mg PO DAILY@1999 #0 tab 01/30/19 lidocaine [Lidoderm] 2 patch TOPICAL Q24H #0 ea 01/30/19 lorazepam 1 mg PO Q4H PRN PRN #0 tab 01/30/19 ondansetron HCl (PF) 4 mg IVP Q4H PRN PRN #0 ml 01/30/19 Allergies Allergy/AdvReac Type Severity Reaction Status Date / Time No Known Allergies Allergy Verified 12/27/18 10:45 General Stated Complaint: Chest Pain DEEPTI: 3 Review of Systems Review of Systems All systems reviewed & are unremarkable except as noted in HPI and below Constitutional Reports as per HPI, Denies chills and Denies fever(s) Eyes Denies blurry vision ENT Denies dizziness, Denies sore throat and Denies throat swelling Cardiovascular Reports chest pain and Reports dyspnea Respiratory Denies cough and Reports dyspnea Gastrointestinal Denies abdominal pain, Denies diarrhea and Denies vomiting Genitourinary Denies hematuria and Denies dysuria Musculoskeletal Denies back pain and Denies numbness Integumentary/Breasts Denies lesions and Denies rash Neurologic Denies dizziness, Denies focal weakness and Denies numbness Allergic/Immunologic Denies throat swelling [facility], [facility] Medical History Affective personality disorder (Chronic) Anxiety (Chronic) Bipolar 2 disorder (Chronic) Depression (Chronic) GERD (gastroesophageal reflux disease) (Chronic) Hepatitis C (Chronic) History of alcohol abuse (Chronic) History of intravenous drug abuse (Chronic) HTN (hypertension) (Chronic) Hyperlipidemia (Chronic) Kidney stones (Chronic) PTSD (post-traumatic stress disorder) (Chronic) TBI (traumatic brain injury) (Chronic) Surgical History Appendectomy Colonoscopy - MAC (11/14/16) EGD - MAC (11/14/16) Rotator Cuff Repair Spinal Fusion Vasectomy Social History Smoking/Tobacco Use Status: Current-Occasional Tobacco Type: cigarettes Alcohol Intake: current Alcohol Intake frequency: holidays/special occasions only Drug use: Never Substance use type: does not use and former substance user Details: Hx drug abuse Do you feel safe at home: Yes Do you feel safe in your relationship?: Yes Exam Const General: cooperative, healthy appearing and no acute distress HENMT Head: normal to inspection Face and sinus: normal facial exam Eyes General: appearance normal, both eyes and all related structures EOM: EOM intact bilaterally Neck Neck: normal visual inspection and No submandibular swelling Lymphatic: no lymphadenopathy noted Chest Chest: normal inspection of the chest Chest/axillae images: 1. Localized area of tenderness to palpation. No evidence of trauma, step-off or infection. Resp Effort & Inspection: normal respiratory effort and able to speak in complete sentences Auscultation: clear to auscultation bilaterally Cardio Rate: regular rate Rhythm: regular rhythm GI Inspection: normal to inspection and obesity Palpation: soft, not firm, not rigid and nontender Auscultation: normal bowel sounds Male General Exam: Yes normal external exam Back/Spine/Pelvis Thoracic/Lumbar Spine: thoracic and lumbar spine normal to inspection Pelvis: no pain with anterior-posterior compression Skin General skin exam: no rashes or lesions noted Neuro General: alert, awake and oriented x3 Cognition: normal cognition Speech: speech normal Motor: muscle tone normal throughout Sensory Exam: no sensory deficits noted Extrem General: normal to inspection, full ROM, normal capillary refill, no calf tenderness bilaterally and no edema Upper/lower leg/hip images: 1. Multiple scars noted in left groin. There is an approximate 1.5 x 1 cm open wound without any drainage at present. Area appears pink and no significant erythema or evidence of abscess. Psych Appearance: grossly normal Mental Status: mental status grossly normal Speech and Movement: speech and movement normal Affect: normal affect Course Vital Signs Temperature 97.7 F 03/06/19 10:45 Pulse 80 03/06/19 10:45 Respiratory Rate 16 03/06/19 10:45 Blood Pressure 179/103 H 03/06/19 10:45 Pulse Oximetry 96 03/06/19 10:45 Temperature 97.7 F 03/06/19 10:45 Temperature Source Temporal Artery Scan 03/06/19 10:45 Pulse 80 03/06/19 10:45 Respiratory Rate 16 03/06/19 10:45 Blood Pressure 179/103 H 03/06/19 10:45 Blood Pressure Position Sitting 03/06/19 10:45 Pulse Oximetry 96 03/06/19 10:45 Oxygen Delivery Method Room Air 03/06/19 10:45 Oxygen Flow Rate 0 03/06/19 10:45 Pain Level 4 03/06/19 10:45
[2019-03-06 11:35] LABS: Lactate-non-spesis 1.1 mmol/l (0.6-1.4)
[2019-03-06 11:37] LABS: Abs Immature Grans 0.02 k/cumm (0.0-0.09); Absolute Basophil Count 0.03 k/cumm (0.0-0.2); Absolute Eosinophil Count 0.22 k/cumm (0.0-0.7); Absolute Lymphocyte Count 1.52 k/cumm (1.2-3.4); Absolute Monocyte Count 0.41 k/cumm (0.11-0.7); Absolute Neutrophil Count 4.76 k/cumm (1.2-6.7); Basophils % 0.4; Eosinophils % 3.2; HCT 35.9 % (40.0-50.0); HGB 11.6 g/dL (13.5-17.5); Immature Grans % 0.3; Lymphocytes % 21.8; Mean Corp. HGB Concentration 32.3 g/dL (32.0-36.0); Mean Corpuscular Hemoglobin 26.1 pg (27.0-33.0); Mean Corpuscular Volume 80.7 fL (80-95); Monocytes % 5.9; Neutrophils % 68.4; Platelet Count 292 x1000/uL (130-400); RBC 4.45 m/cumm (4.50-6.00); RBC Distribution Width 15.3 % (11.8-14.1); White Blood Cell Count 6.96 k/cumm (4.4-10.8)
[2019-03-06 11:56] LABS: ALT 30 U/L (12-78); AST 17 U/L (15-37); Albumin 3.4 g/dL (3.4-5.0); Alkaline Phosphatase 131 U/L (46-116); Anion Gap 10.3 mmol/L (3-11); BUN 15 mg/dL (7-18); Bilirubin, Total 0.4 mg/dL (0.2-1.0); CO2 26.7 mmol/L (21.0-32.0); CREATININE 1.15 mg/dL (0.70-1.30); Calcium 8.8 mg/dL (8.5-10.1); Chloride 102 mmol/L (98-107); Glucose 109 mg/dL (70-100); Magnesium 1.8 mg/dL (1.8-2.4); Potassium 3.8 mmol/L (3.5-5.1); Sodium 139 mmol/L (136-145); Total Protein 7.9 g/dL (6.4-8.2)
[2019-03-06 11:58] LABS: Troponin I < 0.05 ng/mL (0.00-0.06)
[2019-03-06] MEDS: Omnipaque 350 MG/ML 100 ML BTL IJ (12:42)
[2019-03-06] MEDS: Normal Saline Flush 10 ML SYR IVP (12:46)
[2019-03-06] MEDS: Ketorolac 30 MG/ML VIAL IVP (13:04)
--- NOTE | 2019-03-06 13:05 | NUR.NOTE ---
Nursing Note: pt resfusing to be attached to monitoring equipment, but not accepting fluids and pain medication
[2019-03-06] MEDS: Normal Saline 1,000 ML 1000 ML IV (13:09)
--- NOTE | 2019-03-06 13:09 | DI.VRAD_ITS ---
EXAM: CT Angiography Chest With Contrast EXAM DATE/TIME: 03/06/2019 11:14 AM CLINICAL HISTORY: 43 years old, male; Other: L chest pain, cough, tender, R/O pe TECHNIQUE: Imaging protocol: Axial computed tomographic angiography images of the chest with intravenous contrast using CT angiography protocol. Coronal and sagittal reformatted images were created and reviewed. 3D rendering: MIP reconstructed images were created and reviewed. Radiation optimization: All CT scans at this facility use at least one of these dose optimization techniques: automated exposure control; mA and/or kV adjustment per patient size (includes targeted exams where dose is matched to clinical indication); or iterative reconstruction. Contrast material: OMNIPAQUE 350;Contrast volume: 100 ml;Contrast route: IV; COMPARISON: CT CHEST FOR PULMONARY EMBOLUS 05/18/2017 12:16 PM FINDINGS: Pulmonary arteries: No evidence of pulmonary embolus to the segmental level. Aorta: No aneurysm of the aorta. No dissection of the aorta. Lungs: Bibasilar atelectasis Pleural space: Unremarkable. No pneumothorax. No pleural effusion. Heart: Unremarkable. No cardiomegaly. No pericardial effusion. Lymph nodes: Unremarkable. No enlarged lymph nodes. Bones/joints: Unremarkable. No acute fracture. Soft tissues: Unremarkable. IMPRESSION: 1. No evidence of pulmonary embolus to the segmental level. 2. No aneurysm of the aorta. 3. No dissection of the aorta. Dictated and Authenticated by: Corey Calloway MD. Ordering:SHILPI Carrasquillo MD
== END 2019-03-06 14:39 | disposition home or self-care (01) ==
PROVIDERS: Emergency Provider Physician Assistant; PCP Nurse Practitioner Family
DX: R07.89 Other chest pain (principal); K68.12 Psoas muscle abscess; R06.02 Shortness of breath; F11.21 Opioid dependence, in remission; Z86.19 Personal history of other infectious and parasitic diseases; I10 Essential (primary) hypertension
CPT/HCPCS: 36415; 71275; 80053; 87040; 93005; 96374; 99285; 83605; 83735; 84484; 85025; 93010; J1885; J3490

== ENCOUNTER 2019-06-14 09:18 | Emergency (ER) | payer MEDICARE, MEDICAID, SELFPAY ==
[2019-06-14 09:25] VITALS: BP 162/107; PULSE 97; RESP 16; TEMP 36.6; O2SAT 98
--- NOTE | 2019-06-14 09:49 | ED.GENADUL_ITS ---
Discharge Plan Disposition Patient Disposition: HOME Condition: Stable Discharge Details Chief Complaint: Cellulitis Clinical Impression: Cellulitis of left leg, Chronic infection of prosthetic hip Primary Care Provider: Ashely Mueller ED Provider: Neida Stephens Home Meds and New Rx's Prescriptions: New clindamycin HCl 150 mg capsule 450 mg PO TID 7 Days Qty: 63 RF: 0 Continued pantoprazole 40 mg Tablet,Delayed Release (Dr/Ec) 40 mg PO BID@ Qty: 60 RF: 0 ibuprofen [IBU] 800 mg Tablet 800 mg PO TID PRN (Reason: Pain) Qty: 90 RF: 3 acidophilus-pectin, citrus 25 million cell -100 mg Tablet 1 cap PO TID Qty: 30 RF: 0 lidocaine [Lidoderm] 5 % adhesive patch,medicated 1 patch topical QAM Qty: 30 RF: 0 duloxetine [Cymbalta] 30 mg Capsule,Delayed Release(Dr/Ec) 30 mg PO DAILY Qty: 14 RF: 0 acetaminophen 500 mg Tablet 1,000 mg PO Q8H PRN PRNRF: 0 lorazepam 1 mg Tablet 1 mg PO Q4H PRN PRNRF: 0 cholecalciferol (vitamin D3) 1,000 unit Tablet 1,000 unit PO DAILY RF: 0 acetaminophen [Mapap Extra Strength] 500 mg Tablet 1,000 mg PO Q8H Qty: 0 RF: 0 lamotrigine [Lamictal] 25 mg Tablet 25 mg PO DAILY@1999 Qty: 0 RF: 0 No Action gabapentin 600 mg Tablet 800 mg PO TID RF: 0 oxycodone 15 mg tablet 15 mg PO Q4H MDD 180mg PRNRF: 0 clonidine 0.2 mg/24 hr Patch Weekly 1 patch TRANSDERMAL QWEEK RF: 0 meloxicam 15 mg Tablet 15 mg PO DAILY RF: 0 lisinopril 40 mg Tablet 40 mg PO DAILY RF: 0 nicotine [Nicoderm CQ] 7 mg/24 hr Patch 24 Hour 1 patch TRANSDERMAL Q24H RF: 0 Narcan 4 mg/actuation [place],Non-Aerosol 4 mg INTRANASAL Q2M PRNRF: 0 amlodipine 5 mg tablet 10 mg PO DAILY RF: 0 docusate sodium [Colace] 100 mg capsule 100 mg PO DAILY RF: 0 Discharge Instructions Instructions: Cellulitis (ED) Additional Instructions: Take your regular antibiotic as directed. Take the new antibiotic prescription your given today until finished. Follow-up with your scheduled appointment with your primary care doctor on Thursday for reevaluation. Return immediately to the emergency department if you develop any worsening or concerning symptoms such as worsening persistent fevers, worsening redness, pain or swelling. Discharge Data Discharge Date/Time-TO BE ENTERED AT DEPARTURE: 06/14/19 10:00 Discharge Physician: Neida Stephens Medical Decision Making 43-year-old male with history of anxiety, affective personality disorder, bipolar, hep C, for alcohol and IV drug abuse, hypertension, hyperlipidemia, PTSD, TBI, GERD with a history of chronic left prosthetic hip infection for which he has been chronically on antibiotics and currently on doxycycline and f ollowed by Dr. Patton at [facility] who presents with left lower leg redness and pain since yesterday after he was scratched by his new kitten. He states he is unsure of whether the cat is up-to-date on his shots as it is a new kitten. He denies any cat bites. He also states that he hit the front part of his leg on a piece of furniture but denies any significant pain in this area. He states he is mainly concerned about infection of his leg due to his chronic left hip infection. There appears to be a poorly circumscribed area of tender blanching erythema to the left posteromedial leg. There are no open wounds, evidence of abscess, lesions, calf tenderness. Patient is neurovascularly intact. Presentation appears consistent with a mild cellulitis. He appears nontoxic. He is currently afebrile. Will add clindamycin for 1 week. Patient has an appointment with his primary care doctor Thursday and he is advised to follow-up with them for reevaluation. Discussed with patient that his presentation does not appear consistent with cat scratch fever and there is no vesicles or nodules or regional lymphadenopathy. He has a chronic left hip wound with extensive scarring as well as chronic intermittent fevers which he states is no worse than usual. Medical Records Medical records reviewed: Yes I reviewed the patient's medical records. HPI General Mode of arrival: ambulatory . Date/Time Provider Initiated Documentation: 06/14/19 09:28 . Limitations to Documentation: no limitations . Information obtained by: patient . HPI Narrative: Patient is a 43-year-old male with a history of affective personality disorder, anxiety, bipolar, depression, GERD, hepatitis C, former alcohol and IV drug abuse, hypertension, hyperlipidemia, PTSD and TBI with history of chronic left prosthetic hip/psoas infection and cellulitis who presents with left leg redness, swelling and pain since yesterday. Patient states he was scratched by his new kitten in this area and then has developed redness. Patient states he wanted to make sure he was evaluated due to his chronic left hip infection. Patient denies any known Night. He states he has chronic intermittent fevers due to his left hip infecti on but states is no worse than usual and was most recently 100.1. He also states that he hit his left anterior proximal leg on a piece of furniture yesterday but states this is not significant and denies any significant pain in this area. Patient states he is taking doxycycline chronically for his left hip. He states he is followed by Dr. Patton at [facility]. Related Data Home Medications Medication Instructions Recorded Confirmed pantoprazole 40 mg PO BID@ #60 tab 09/29/18 06/14/19 ibuprofen [IBU] 800 mg PO TID PRN #90 tab 11/13/18 06/14/19 acidophilus-pectin, citrus 1 cap PO TID #30 tab 12/24/18 06/14/19 duloxetine [Cymbalta] 30 mg PO DAILY #14 cap 12/24/18 06/14/19 lidocaine [Lidoderm] 1 patch TOPICAL QAM #30 each 12/24/18 06/14/19 acetaminophen 1,000 mg PO Q8H PRN PRN 01/21/19 06/14/19 cholecalciferol (vitamin D3) 1,000 unit PO DAILY 01/21/19 06/14/19 lorazepam 1 mg PO Q4H PRN PRN 01/21/19 06/14/19 acetaminophen [Mapap Extra 1,000 mg PO Q8H #0 tab 01/30/19 06/14/19 Strength] lamotrigine [Lamictal] 25 mg PO DAILY@1999 #0 tab 01/30/19 06/14/19 gabapentin 800 mg PO TID 03/30/19 06/14/19 amlodipine 10 mg PO DAILY 06/14/19 06/14/19 clindamycin HCl 450 mg PO TID 7 Days #63 cap 06/14/19 clonidine 1 patch TRANSDERMAL QWEEK 06/14/19 06/14/19 docusate sodium [Colace] 100 mg PO DAILY 06/14/19 06/14/19 lisinopril 40 mg PO DAILY 06/14/19 06/14/19 meloxicam 15 mg PO DAILY 06/14/19 06/14/19 naloxone [Narcan] 4 mg INTRANASAL Q2M PRN 06/14/19 06/14/19 nicotine [Nicoderm CQ] 1 patch TRANSDERMAL Q24H 06/14/19 06/14/19 oxycodone 15 mg PO Q4H PRN MDD 180mg 06/14/19 06/14/19 Previous Rx's Medication Instructions Recorded pantoprazole 40 mg PO BID@0730,1999 #60 tab 09/29/18 ibuprofen [IBU] 800 mg PO TID PRN #90 tab 11/13/18 acidophilus-pectin, citrus 1 cap PO TID #30 tab 12/24/18 duloxetine [Cymbalta] 30 mg PO DAILY #14 cap 12/24/18 lidocaine [Lidoderm] 1 patch TOPICAL QAM #30 each 12/24/18 acetaminophen [Mapap Extra 1,000 mg PO Q8H #0 tab 01/30/19 Strength] lamotrigine [Lamictal] 25 mg PO DAILY@1999 #0 tab 01/30/19 clindamycin HCl 450 mg PO TID 7 Days #63 cap 06/14/19 Allergies Allergy/AdvReac Type Severity Reaction Status Date / Time No Known Allergies Allergy Verified 06/14/19 09:31 General Stated Complaint: Cellulitis DEEPTI: 3 Review of Systems All systems reviewed & are unremarkable except as noted in HPI and below Constitutional Constitutional: Reports as per HPI, Denies chills and Denies fever(s) Eyes Eyes: Denies blurry vision ENT Ears, Nose, Mouth, and Throat: Denies dizziness, Denies sore throat and Denies throat swelling Cardiovascular Cardiovascular: Denies chest pain and Denies dyspnea Respiratory Respiratory: Denies cough and Denies dyspnea Gastrointestinal Gastrointestinal: Denies abdominal pain, Denies diarrhea and Denies vomiting Genitourinary Genitourinary: Denies hematuria and Denies dysuria Musculoskeletal Musculoskeletal: Denies back pain and Denies numbness Integumentary/Breasts Skin/Breast: Reports lesions and Reports rash Neurologic Neurologic: Denies dizziness, Denies focal weakness and Denies numbness Allergic/Immunologic Allergic/Immunologic: Denies throat swelling [facility] Social History Smoking/Tobacco Use Status: Current-Occasional Tobacco Type: cigarettes Alcohol Intake: current Alcohol Intake frequency: holidays/special occasions only Drug use: Never Substance use type: does not use, former substance user and marijuana Details: Hx drug abuse. has been using marijuana edibles. Do you feel safe at home: Yes Do you feel safe in your relationship?: Yes Exam Const General: cooperative, healthy appearing and no acute distress HENMT Head: normal to inspection Mouth: oral mucosae normal Eyes General: appearance normal, both eyes and all related structures Neck Neck: normal visual inspection Resp Effort & Inspection: normal respiratory effort and able to speak in complete sentences Cardio Rate: regular rate Skin General skin exam: no rashes or lesions noted Neuro General: alert, awake and oriented x3 Motor: muscle tone normal throughout Extrem Ankle/foot/toe images: 1. There is a faintly erythematous mild to moderately tender blanching area of erythema noted to the left distal posterior medial leg. There are no vesicles, nodules or evidence of active bleeding, induration, fluctuance or discharge. 2. 1 x 2 cm superficial abrasion to the left anterior proximal leg. No active bleeding or discharge. No significant tenderness, edema, ecchymosis or erythema. No deformity noted. Other: Left PT/DP pulses intact. No pain in knee with range of motion. Worsening pain in area of erythema distal leg with plantar flexion. No left calf tenderness. Psych Appearance: grossly normal Affect: normal affect Course Vital Signs Vital signs: Vital Signs Temperature 97.9 F 06/14/19 09:25 Pulse 97 H 06/14/19 09:25 Respiratory Rate 16 06/14/19 09:25 Blood Pressure 162/107 H 06/14/19 09:25 Pulse Oximetry 98 06/14/19 09:25 Temperature 97.9 F 06/14/19 09:25 Pulse 97 H 06/14/19 09:25 Respiratory Rate 16 06/14/19 09:25 Respiratory Effort Non-Labored 06/14/19 09:25 Blood Pressure 162/107 H 06/14/19 09:25 Blood Pressure Position Sitting 06/14/19 09:25 Pulse Oximetry 98 11/12/19 09:25 Pain Level 5 06/14/19 09:25
[2019-06-14 10:02] VITALS: BP 162/107; PULSE 97; RESP 16; TEMP 36.6; O2SAT 98
[2019-06-14 10:03] VITALS: BP 159/100; PULSE 91; TEMP 36.4; O2SAT 97
== END 2019-06-14 10:00 | disposition home or self-care (01) ==
PROVIDERS: Emergency Provider Physician Assistant; PCP Nurse Practitioner Family
DX: L03.116 Cellulitis of left lower limb (principal); W55.03XA Scratched by cat, initial encounter; I10 Essential (primary) hypertension; Z96.642 Presence of left artificial hip joint
CPT/HCPCS: 36415; 80053; 99283; 85025; 86140

== ENCOUNTER 2019-06-14 10:07 | Outpatient (CLI) | payer MEDICARE, MEDICAID, SELFPAY ==
[2019-06-14 11:03] LABS: Abs Immature Grans 0.03 k/cumm (0.0-0.09); Absolute Basophil Count 0.02 k/cumm (0.0-0.2); Absolute Lymphocyte Count 1.71 k/cumm (1.2-3.4); Absolute Monocyte Count 0.71 k/cumm (0.11-0.7); Basophils % 0.2; Eosinophils % 0.9; HCT 38.6 % (40.0-50.0); HGB 12.2 g/dL (13.5-17.5); Immature Grans % 0.3; Lymphocytes % 15.5; Mean Corp. HGB Concentration 31.6 g/dL (32.0-36.0); Mean Corpuscular Hemoglobin 24.7 pg (27.0-33.0); Mean Corpuscular Volume 78.1 fL (80-95); Mean Platelet Volume 9.2 fL (8.0-11.0); Monocytes % 6.4; Neutrophils % 76.7; Platelet Count 289 x1000/uL (130-400); RBC 4.94 m/cumm (4.50-6.00); RBC Distribution Width 15.8 % (11.8-14.1); White Blood Cell Count 11.06 k/cumm (4.4-10.8)
[2019-06-14 11:10] LABS: Absolute Neutrophil Count 8.48 k/cumm (1.2-6.7)
[2019-06-14 12:32] LABS: ALT 28 U/L (16-63); AST 17 U/L (15-37); Albumin 3.8 g/dL (3.4-5.0); Alkaline Phosphatase 124 U/L (46-116); Anion Gap 11.5 mmol/L (3-11); BUN 17 mg/dL (7-18); Bilirubin, Total 0.6 mg/dL (0.2-1.0); CO2 23.5 mmol/L (21.0-32.0); CREATININE 1.17 mg/dL (0.70-1.30); Calcium 9.1 mg/dL (8.5-10.1); Chloride 103 mmol/L (98-107); Glucose 103 mg/dL (70-100); Sodium 138 mmol/L (136-145); Total Protein 7.8 g/dL (6.4-8.2)
[2019-06-14 12:41] LABS: C-Reactive Protein 5.04 mg/dL (0.0-0.3)
== END 2019-06-14 10:27 ==
PROVIDERS: PCP Nurse Practitioner Family; Visit Provider Nurse Practitioner Family
DX: K68.12 Psoas muscle abscess (principal)
CPT/HCPCS: 36415; 80053; 85025; 86140

== ENCOUNTER 2019-06-16 01:20 | Outpatient (CLI) | payer MEDICARE, MEDICAID, SELFPAY ==
--- NOTE | 2019-06-16 15:50 | DI.CT_ITS ---
EXAM: CT LOWER EXTREMITY LT W CLINICAL HISTORY: F/U LT HIP/THIGH INFECTION, ? ABSCESS NEEDING DRAINAGE, LEFT HIP POSTOP WOUND, T81 .[id number], LONG-TERM ANTIBIOTIC USE TECHNIQUE: Images were performed from the left mid pelvis through the upper femoral shaft after IV c ontrast. CT CHEST/ABD/PEL W from 01/30/2019 CT CHEST/ABD/PEL W from 01/30/2019 FINDINGS: There is mild stranding in the left psoas muscle, with continued improvement when compared with the p revious exam. There is no drainable abscess or fluid collection. There is no gross joint effusion o r fluid in the iliopsoas bursa. No bony erosions are identified. The left SI joint is unremarkable. IMPRESSION: Continued improvement of left psoas inflammation with mild left psoas enlargement and stranding.
[2019-06-16] MEDS: Omnipaque 350 MG/ML 100 ML BTL IJ (15:51)
== END 2019-06-16 01:40 ==
PROVIDERS: PCP Nurse Practitioner Family; Visit Provider Internal Medicine Infectious Disease
DX: K68.12 Psoas muscle abscess (principal); T81.49XD Infection following a procedure, other surgical site, subsequent encounter; Z79.2 Long term (current) use of antibiotics
CPT/HCPCS: 73701; J3490

== ENCOUNTER 2019-06-17 12:40 | Emergency (ER) | payer MEDICARE, MEDICAID, SELFPAY ==
[2019-06-17 12:48] VITALS: BP 154/101; PULSE 91; RESP 18; TEMP 35.9; O2SAT 97
--- NOTE | 2019-06-17 13:42 | DI.US_ITS ---
EXAM: US LOWER EXTREMITY VENOUS LT CLINICAL HISTORY: r/o DVT TECHNIQUE: Left lower extremity venous ultrasound performed using grayscale, color-flow, and spectra l Doppler analysis. COMPARISON: US ABDOMEN from 12/20/2018 FINDINGS: The left common femoral, femoral and popliteal veins demonstrate normal compressibility, augmentation , and color Doppler. The posterior tibial veins are patent. The saphenofemoral junction is unremarkab le. IMPRESSION: No DVT.
[2019-06-17] MEDS: Normal Saline 1,000 ML 1000 ML IV (13:53)
[2019-06-17 14:13] LABS: Lactate 1.8 mmol/L (0.6-1.4)
[2019-06-17 14:24] LABS: Absolute Basophil Count 0.02 k/cumm (0.0-0.2); Absolute Eosinophil Count 0.18 k/cumm (0.0-0.7); Absolute Lymphocyte Count 1.99 k/cumm (1.2-3.4); Absolute Neutrophil Count 5.17 k/cumm (1.2-6.7); Basophils % 0.3; Eosinophils % 2.3; HCT 39.3 % (40.0-50.0); HGB 12.2 g/dL (13.5-17.5); Lymphocytes % 25.6; Mean Corpuscular Hemoglobin 24.5 pg (27.0-33.0); Mean Corpuscular Volume 79.1 fL (80-95); Mean Platelet Volume 9.5 fL (8.0-11.0); Monocytes % 5.2; Neutrophils % 66.6; Platelet Count 308 x1000/uL (130-400); RBC 4.97 m/cumm (4.50-6.00); RBC Distribution Width 15.8 % (11.8-14.1); White Blood Cell Count 7.76 k/cumm (4.4-10.8)
[2019-06-17 14:30] LABS: ALT 26 U/L (16-63); AST 20 U/L (15-37); Albumin 3.6 g/dL (3.4-5.0); Alkaline Phosphatase 118 U/L (46-116); Anion Gap 8.8 mmol/L (3-11); BUN 14 mg/dL (7-18); Bilirubin, Total 0.4 mg/dL (0.2-1.0); CO2 28.2 mmol/L (21.0-32.0); Calcium 9.3 mg/dL (8.5-10.1); Chloride 103 mmol/L (98-107); Glucose 105 mg/dL (70-100); Potassium 4.2 mmol/L (3.5-5.1); Sodium 140 mmol/L (136-145); Total Protein 8.5 g/dL (6.4-8.2)
[2019-06-17 15:32] LABS: ESR 72 mm/hr (0-15)
[2019-06-17] MEDS: Ondansetron 4 MG/2 ML VIAL IVP (15:49)
[2019-06-17 15:54] VITALS: BP 124/72; PULSE 74; RESP 18; O2SAT 98
--- NOTE | 2019-06-17 17:04 | ED.GENADUL_ITS ---
Discharge Plan Disposition Patient Disposition: HOME Discharge Details Chief Complaint: Orthopedic Clinical Impression: Cellulitis of left leg, Chronic infection Primary Care Provider: Ashely Mueller ED Provider: Bladimir Horowitz Home Meds and New Rx's Prescriptions: New amoxicillin-pot clavulanate [Augmentin] 875-125 mg tablet 1 tab PO BID Qty: 20 RF: 0 Continued gabapentin 600 mg Tablet 800 mg PO TID RF: 0 ibuprofen [IBU] 800 mg Tablet 800 mg PO TID PRN (Reason: Pain) Qty: 90 RF: 3 doxycycline hyclate 100 mg Tablet 100 mg PO BID RF: 0 duloxetine [Cymbalta] 30 mg Capsule,Delayed Release(Dr/Ec) 30 mg PO DAILY Qty: 14 RF: 0 lorazepam 1 mg Tablet 1 mg PO Q4H PRN PRNRF: 0 cholecalciferol (vitamin D3) 1,000 unit Tablet 1,000 unit PO DAILY RF: 0 acetaminophen [Mapap Extra Strength] 500 mg Tablet 1,000 mg PO Q8H Qty: 0 RF: 0 lamotrigine [Lamictal] 25 mg Tablet 25 mg PO DAILY@2000 Qty: 0 RF: 0 oxycodone 15 mg tablet 15 mg PO Q4H MDD 180mg PRNRF: 0 clonidine 0.2 mg/24 hr Patch Weekly 1 patch TRANSDERMAL QWEEK RF: 0 meloxicam 15 mg Tablet 15 mg PO DAILY RF: 0 lisinopril 40 mg Tablet 40 mg PO DAILY RF: 0 Narcan 4 mg/actuation [place],Non-Aerosol 4 mg INTRANASAL Q2M PRNRF: 0 amlodipine 5 mg tablet 10 mg PO DAILY RF: 0 docusate sodium [Colace] 100 mg capsule 100 mg PO DAILY RF: 0 Discharge Instructions Instructions: Cellulitis (ED) Additional Instructions: Please contact your primary care physician to arrange follow-up. Please follow-up with infectious disease. Call as soon as possible to arrange timely follow-up. Return to the ER immediately for any worsening or new concerning symptoms. 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 Patient has worked with infectious disease for the last year is on a controlling medication, dicloxacillin for his infection. Patient presents today after discussion with his infectious disease doctor for increasing pain associated with subjective fever and concerns of new lower leg redness while taking antibiotics. Patient reports an area of erythema noted to the distal melchor medially at site of recent cat scratch. Patient recently was seen in the emergency room after cat scratch and clindamycin was added to his antibiotic regimen. Patient reports no significant improvement with clindamycin. After discussion with his infectious disease doctor over the phone they recommend he go see them in [facility] in the emergency room for consideration of IV antibiotic, admission, blood cultures and imaging. Patient was unable to get to [facility] for management of his infection therefore came to [facility] today for evaluation. Patient reports his fevers have been up to 101 at home but are intermittent. Patient does report increase in the pain in his left hip compared to previous and is concerned with the lower leg erythema. Patient eating and drinking without difficulty. No significant cough or upper respiratory symptoms no abdominal complaints today. On exam patient does have low back pain noted over his surgical site but no obvious erythema or skin infections. Patient does have a right inguinal groin wound which has no obvious drainage at this time. Patient does have pain with internal/external rotation of the hip and pain with straight leg raise. Patient does have a left lower leg medial area of previous skin marking with vague erythema which is not intense mildly improved compared to the previous skin marking. Patient does have notable vascular engorgement and calf tenderness at the distal calf. Patient is neurovascularly intact distally with full range of motion of the foot. Blood cultures were ordered and obtained, labs ordered, ultrasound of the left leg ordered as there is some prominent vasculature noted in the area of vague erythema and calf pain associated. Patient agrees with plan of care I spoke with Dr. 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 He is having difficulty finding a surgeon willing to remove the hardware from his spine. They have done multiple aspirates of the area in the tract for which has been draining. He did see this patient last week and follow-up did order a CT scan with the patient had 2 days ago revealing no focal abscess. At that time he did have elevation of his white blood cell count which they have been trending. Discussed patient's presentation today. His white blood cell count has improved. We discussed most appropriate plan of care with this patient. Dr. Youngblood feels this patient is appropriate for admission to the hospital for IV vancomycin and observation. He does report 1 of the benefits of admission would be trending the patient's temperatures to see if there is an identifiable fever as none have been recorded thus far despite patient's continued reports of intermittent fevers. He does report there would be some benefit to obtaining an MRI and possible aspiration of the hip joint if needed. He reports that the patient is unwilling to be admitted for IV vancomycin then it would be reasonable to discontinue his previous antibiotics and prescribed Augmentin which he thinks would be beneficial until able to follow-up with him as an outpatient early next week. I discussed this plan with the patient whose preference is to be admitted at this time for IV vancomycin his he does not tolerate Augmentin due to GI side effects. Patient's previous leukocytosis has notably improved. Patient does have an elevated sed rate at 72, seemingly they have been trending his CRP which Dr. Youngblood reports he can continue to trend. Patient was signed out to Lor pending disposition <Bladimir Horowitz MD - Last Filed: 07/14/19 16:42> Care signed out by SUMAN Robertson with plan to continue IV antibiotics and admit for intermittent fevers, chronic back/hip infection. I reviewed labs: No leukocytosis. Patient is afebrile here, not tachycardic and slightly hypertensive. Initially I was under the assumption that the pain in his left hip was worsening and plan for CT of the hip to compare to prior. Patient did just have CT of the left lower extremity yesterday that revealed continued improvement of left psoas inflammation with mild left psoas enlargement and stranding. Plan will be to proceed to CT of the pelvis to assess for deeper abscess. I evaluated the patient: Left lower extremity cellulitis seems to be improved and decreasing within marked border. Patient notes chronic pain in his left hip that is not worse. He has had no dizziness. He is refusing CT and also refusing additional IV antibiotics at this time (he has nearly completed vancomycin 1.5g). Patient would prefer to be discharged on Augmentin as recommended by infectious disease which he now notes he is willing to take. Patient has decisional making capacity to make informed decision and refusal of care. I discussed potential risk of not having CT imaging is recommended. Patient verbalized understanding of risk and still refuses noting he does not feel it is necessary given he had one yesterday. I explained that we would be able to see difference as compared to yesterday and that the study would provide additional information as it would extend further into his pelvis. Patient still refuses. I explained recommendations from infectious disease that he should take Augmentin in addition to currently prescribed antibiotics as prescribed and follow-up with infectious disease as soon as possible. He does plan to call to arrange follow-up. I encouraged him to return immediately should have any worsening or new concerning symptoms. HPI <SUMAN Yanes - Last Filed: 06/23/19 08:11> General Date/Time Provider Initiated Documentation: 06/17/19 12:46 . HPI Narrative: This a 43-year-old patient with an unfortunate medical history of spine surgery requiring hardware approximately 8 years ago. 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 Patient has been dealing with infectious disease in [facility] regarding this infection for the last year. Patient is on chronic dicloxacillin at this time. Patient has been compliant with his antibiotics. Patient has had aspirations. Patient reports a week ago he was scratched by a cat seen in the emergency room for a developing left lower leg cellulitis. Patient was prescribed clindamycin in addition to the dicloxacillin he is currently taking it to control and suppress his infection. Patient reports he is been compliant with the antibiotic and reports no significant improvement in the left lower leg swelling. Patient does report intermittent fevers of up to 101. Patient denies headache or dizziness. Patient spoke with his infectious disease doctor who is very familiar with the patient who recommended he come to [facility] to have blood cultures imaging and IV antibiotics after evaluation. Patient was unable to go to [facility] for evaluation today due to difficulty obtaining a ride. Patient does report increasing pain in the last several days in his left hip, worse with range of motion. Patient reports baseline chronic back pain. Patient denies any other concerns or complaints at this time Related Data Home Medications Medication Instructions Recorded Confirmed ibuprofen [IBU] 800 mg PO TID PRN #90 tab 11/13/18 06/17/19 duloxetine [Cymbalta] 30 mg PO DAILY #14 cap 12/24/18 06/17/19 cholecalciferol (vitamin D3) 1,000 unit PO DAILY 01/21/19 06/17/19 lorazepam 1 mg PO Q4H PRN PRN 01/21/19 06/17/19 acetaminophen [Mapap Extra 1,000 mg PO Q8H #0 tab 01/30/19 06/17/19 Strength] lamotrigine [Lamictal] 25 mg PO DAILY@1999 #0 tab 01/30/19 06/17/19 gabapentin 800 mg PO TID 03/30/19 06/17/19 Narcan 4 mg INTRANASAL Q2M PRN 06/14/19 06/17/19 amlodipine 10 mg PO DAILY 06/14/19 06/17/19 clonidine 1 patch TRANSDERMAL QWEEK 06/14/19 06/17/19 docusate sodium [Colace] 100 mg PO DAILY 06/14/19 06/17/19 lisinopril 40 mg PO DAILY 06/14/19 06/17/19 meloxicam 15 mg PO DAILY 06/14/19 06/17/19 oxycodone 15 mg PO Q4H PRN MDD 180mg 06/14/19 06/17/19 amoxicillin-pot clavulanate 1 tab PO BID #20 tab 06/17/19 [Augmentin] doxycycline hyclate 100 mg PO BID 06/17/19 06/17/19 Previous Rx's Medication Instructions Recorded ibuprofen [IBU] 800 mg PO TID PRN #90 tab 11/13/18 duloxetine [Cymbalta] 30 mg PO DAILY #14 cap 12/24/18 acetaminophen [Mapap Extra 1,000 mg PO Q8H #0 tab 01/30/19 Strength] lamotrigine [Lamictal] 25 mg PO DAILY@1999 #0 tab 01/30/19 amoxicillin-pot clavulanate 1 tab PO BID #20 tab 06/17/19 [Augmentin] Allergies Allergy/AdvReac Type Severity Reaction Status Date / Time No Known Allergies Allergy Verified 06/17/19 12:53 General Stated Complaint: Orthopedic DEEPTI: 3 Review of Systems <SUMAN Yanes - Last Filed: 06/23/19 08:11> All systems reviewed & are unremarkable except as noted in HPI and below Constitutional Constitutional: Reports chills, Reports fever(s) and Reports malaise ENT Ears, Nose, Mouth, and Throat: Denies neck pain Cardiovascular Cardiovascular: Denies chest pain Respiratory Respiratory: Denies cough and Denies wheezing Gastrointestinal Gastrointestinal: Denies abdominal pain, Denies cramping, Denies diarrhea, Denies nausea and Denies vomiting Genitourinary Genitourinary: Denies hematuria and Denies dysuria Musculoskeletal Musculoskeletal: Reports back pain, Denies deformity, Denies muscle weakness, Denies neck pain, Denies numbness and Denies tingling Integumentary/Breasts Skin/Breast: Reports erythema and Reports skin swelling Neurologic Neurologic: Denies numbness and Denies tingling Allergic/Immunologic Allergic/Immunologic: Denies wheezing PFSH <SUMAN Yanes - Last Filed: 06/23/19 08:11> Medical History Affective personality disorder (Chronic) Anxiety (Chronic) Bipolar 2 disorder (Chronic) Depression (Chronic) GERD (gastroesophageal reflux disease) (Chronic) Hepatitis C (Chronic) History of alcohol abuse (Chronic) History of intravenous drug abuse (Chronic) HTN (hypertension) (Chronic) Hyperlipidemia (Chronic) Kidney stones (Chronic) PTSD (post-traumatic stress disorder) (Chronic) TBI (traumatic brain injury) (Chronic) Surgical History Appendectomy Colonoscopy - MAC (11/14/16) EGD - MAC (11/14/16) Rotator Cuff Repair right Spinal Fusion Vasectomy Social History Smoking/Tobacco Use Status: Current-Occasional Tobacco Type: cigarettes Alcohol Intake: current Alcohol Intake frequency: holidays/special occasions only Drug use: Never Substance use type: does not use, former substance user and marijuana Details: Hx drug abuse. has been using marijuana edibles. Do you feel safe at home: Yes Do you feel safe in your relationship?: Yes Exam <SUMAN Yanes - Last Filed: 06/23/19 08:11> Narrative Exam Narrative: CONST: Somewhat unkempt, no acute distress. Well hydrated. Alert and alert. NECK: Normal visual inspection. FROM. No lymphadenopathy. Trachea midline. No Midline tenderness. CHEST: Normal insepection of the chest. RESP: Normal respiratory effort. Speaking full sentences. No cough. No wheezing. No retractions. Clear to auscaltation. Breath sound equal and present bilaterally. CARDIO: No JVD. Normal PMI. Regular Rate. Regular Rhythm. Normal peripheral pulses. Back: No cervical, thoracic pain with palpation. Large surgical scar noted which is well-appearing. Pain with palpation of the lumbar spine. GI: Normal inspection of abdomen. No distension. Soft. Nontender. Bowel sounds present in all 4 quadrants. No rebound. No gaurding. MUSCULOSKELETAL: Normal Gait. FROM of all extremities. Distal neurovascularly intact. Sensation intact distally. Pain with straight leg raise of the left leg associated with pain with internal/external rotation of the left hip. Chronic appearing wound noted in the inguinal fold of the left hip which has no associated drainage at this time. Patient with an area of the erythema to the medial distal pretibial melchor which is inside of the previously marked skin markings however is mildly erythematous, no intense erythema noted, palpable vascular engorgement at the area, mild induration. No focal fluctuance. Pain with palpation of the calf. Full range of motion of the ankle. Pulses intact distally SKIN: Normal. Dry. No rashes. Erythema to the medial pretibial melchor as previously discussed Course <SUMAN Yanes - Last Filed: 06/23/19 08:11> Vital Signs Vital signs: Vital Signs Temperature 35.9 C L 06/17/19 12:48 Pulse 91 H 06/17/19 12:48 Respiratory Rate 18 06/17/19 12:48 Blood Pressure 154/101 H 06/17/19 12:48 Pulse Oximetry 97 06/17/19 12:48 Temperature 35.9 C L 06/17/19 12:48 Temperature Source Skin 06/17/19 12:48 Pulse 74 06/17/19 15:54 Respiratory Rate 18 06/17/19 15:54 Respiratory Effort 06/17/19 13:00 Blood Pressure 124/72 06/17/19 15:54 Blood Pressure Position Sitting 06/17/19 12:48 Pulse Oximetry 98 06/17/19 15:54 Oxygen Delivery Method Room Air 06/17/19 15:54 Oxygen Flow Rate 0 06/17/19 15:54 Pain Level 6 06/17/19 12:48 Comment 06/17/19 12:48 Lab/Test Results Lab/Test Results: 06/17/19 14:35 Blood Blood Culture - Pending 06/17/19 13:18 Blood Blood Culture - Pending Laboratory Tests Range/Units 06/17/19 06/17/19 06/17/19 13:18 13:18 13:18 WBC (4.4-10.8) k/cumm 7.76 RBC (4.50-6.00) m/cumm 4.97 Hgb (13.5-17.5) g/dL 12.2 L Hct (40.0-50.0) % 39.3 L MCV (80-95) fL 79.1 L MCH (27.0-33.0) pg 24.5 L MCHC (32.0-36.0) g/dL 31.0 L RDW (11.8-14.1) % 15.8 H Plt Count (130-400) x1000/uL 308 MPV (8.0-11.0) fL 9.5 Immature Gran % 0.0 Neutrophils % 66.6 Lymphocytes % 25.6 Monocytes % 5.2 Eosinophils % 2.3 Basophils % 0.3 Absolute Neutrophils (1.2-6.7) k/cumm 5.17 Absolute Lymphocytes (1.2-3.4) k/cumm 1.99 Absolute Monocytes (0.11-0.7) k/cumm 0.40 Absolute Eosinophils (0.0-0.7) k/cumm 0.18 Absolute Basophils (0.0-0.2) k/cumm 0.02 ESR (0-15) mm/hr 72 H Sodium (136-145) mmol/L 140 Potassium (3.5-5.1) mmol/L 4.2 Chloride (98-107) mmol/L 103 Carbon Dioxide (21.0-32.0) mmol/L 28.2 Anion Gap (3-11) mmol/L 8.8 BUN (7-18) mg/dL 14 Creatinine (0.70-1.30) mg/dL 1.10 Estimated GFR/1.73 m2 (mL/min/1.73m2) >= 60.00 Glucose (70-100) mg/dL 105 H Lactate (0.6-1.4) mmol/L 1.8 H Calcium (8.5-10.1) mg/dL 9.3 Total Bilirubin (0.2-1.0) mg/dL 0.4 AST (15-37) U/L 20 ALT (16-63) U/L 26 Alkaline Phosphatase (46-116) U/L 118 H Total Protein (6.4-8.2) g/dL 8.5 H Albumin (3.4-5.0) g/dL 3.6 Range/Units 06/17/19 14:35 WBC (4.4-10.8) k/cumm RBC (4.50-6.00) m/cumm Hgb (13.5-17.5) g/dL Hct (40.0-50.0) % MCV (80-95) fL MCH (27.0-33.0) pg MCHC (32.0-36.0) g/dL RDW (11.8-14.1) % Plt Count (130-400) x1000/uL MPV (8.0-11.0) fL Immature Gran % Neutrophils % Lymphocytes % Monocytes % Eosinophils % Basophils % Absolute Neutrophils (1.2-6.7) k/cumm Absolute Lymphocytes (1.2-3.4) k/cumm Absolute Monocytes (0.11-0.7) k/cumm Absolute Eosinophils (0.0-0.7) k/cumm Absolute Basophils (0.0-0.2) k/cumm ESR (0-15) mm/hr Sodium (136-145) mmol/L Potassium (3.5-5.1) mmol/L Chloride (98-107) mmol/L Carbon Dioxide (21.0-32.0) mmol/L Anion Gap (3-11) mmol/L BUN (7-18) mg/dL Creatinine (0.70-1.30) mg/dL Estimated GFR/1.73 m2 (mL/min/1.73m2) Glucose (70-100) mg/dL Lactate (0.6-1.4) mmol/L 1.0 Calcium (8.5-10.1) mg/dL Total Bilirubin (0.2-1.0) mg/dL AST (15-37) U/L ALT (16-63) U/L Alkaline Phosphatase (46-116) U/L Total Protein (6.4-8.2) g/dL Albumin (3.4-5.0) g/dL Sign Out <SUMAN Yanes - Last Filed: 06/23/19 08:11> Sign Out Data: Sign Out Comment: Patient signed out pending disposition, and IV vancomycin administration. Last updated by Edelmira Bonilla PA at 06/17/19 17:22
[2019-06-17 17:20] VITALS: BP 153/93; PULSE 72; RESP 16; O2SAT 99
--- NOTE | 2019-06-17 18:46 | NUR.NOTE ---
Nursing Note: iv vanco d/c at this time. pt does not want to finish his vanco and wants to go home. approx 20mls still in bag.
== END 2019-06-17 18:50 | disposition home or self-care (01) ==
PROVIDERS: Physician Assistant; Emergency Provider Student in an Organized Health Care Education/Training Program; PCP Nurse Practitioner Family
DX: L03.116 Cellulitis of left lower limb (principal); S80.812A Abrasion, left lower leg, initial encounter; W55.03XA Scratched by cat, initial encounter; Z53.29 Procedure and treatment not carried out because of patient's decision for other reasons; I10 Essential (primary) hypertension
CPT/HCPCS: 36415; 80053; 85652; 87040; 96361; 96365; 96375; 96376; 99284; 83605; 85025; 93971; J2405; J3370

== ENCOUNTER 2019-07-12 12:16 | Outpatient (CLI) | payer MEDICARE, MEDICAID, SELFPAY ==
--- NOTE | 2019-07-12 11:24 | DI.RAD_ITS ---
EXAM: XR SHOULDER LT COMPLETE 2+V INDICATION: SHOULDER PAIN M25.512. COMPARISON: RIGHT SHOULDER COMPLETE from 02/18/2010 TECHNIQUE: 2D digital imaging was performed. FINDINGS: The AC joint appears widened. The coracoclavicular distance is normal. There is spurring at the und ersurface of the acromion and at the greater tuberosity. There is [id number] narrowing of the glenohumeral joint which shows mild spurring. IMPRESSION: Degenerative changes and widening of the AC joint.
== END 2019-07-12 12:36 ==
PROVIDERS: PCP Nurse Practitioner Family; Visit Provider Nurse Practitioner Family
DX: M25.512 Pain in left shoulder (principal); M19.012 Primary osteoarthritis, left shoulder
CPT/HCPCS: 73030

== ENCOUNTER → 2019-08-10 09:23 | Outpatient (BNVA) | payer MEDICARE, MEDICAID, SELFPAY | PROVIDERS: PCP Nurse Practitioner Family; Referring Provider Nurse Practitioner Family; Visit Provider Orthopaedic Surgery | DX: M75.02 Adhesive capsulitis of left shoulder (principal); M25.512 Pain in left shoulder; W19.XXXA Unspecified fall, initial encounter | CPT/HCPCS: 99214 ==

== ENCOUNTER 2019-08-29 08:10 | Outpatient (CLI) | payer MEDICARE, MEDICAID, SELFPAY ==
[2019-08-29] MEDS: Breeza Beverage 473 ML BTL PO (10:19)
[2019-08-29] MEDS: Omnipaque 350 MG/ML 50 ML BTL PO (10:19)
--- NOTE | 2019-08-29 11:26 | DI.CT_ITS ---
EXAM: CT ABDOMEN PELVIS W CLINICAL HISTORY: INTRAABDOMINAL INFECTION, B99.9, LT GROIN ABSCESS, L02.214,WORSENING ON ABX TECHNIQUE: Images were performed from the lung bases through the ischial tuberosities after IV and o ral contrast. COMPARISON: CT CHEST PE CTA from 03/06/2019 CT LOWER EXTREMITY LT W from 06/16/2019 FINDINGS: The heart size is normal. The lung bases are clear. The liver appears mildly enlarged and shows mi ld fatty infiltration. The spleen, gallbladder, pancreas, kidneys, adrenals and urinary bladder are unremarkable. There is diverticulosis of the sigmoid but no evidence of diverticulitis. There is mo derate increased stool in the ascending and transverse colon. There is again noted to be some stranding around the left psoas muscle which appears unchanged. Ther e is a soft tissue wound seen at the level of the hip anteriorly. There is no drainable abscess or f luid collection. Multiple surgical clips are seen in the vicinity. No intra-abdominal abscess, free air or free fluid is seen. Postsurgical and degenerative changes are again noted in the spine. IMPRESSION: No significant change in mild stranding around the left psoas muscle and anterior surgical scar. No evidence of abscess or fluid collection.
[2019-08-29] MEDS: Omnipaque 350 MG/ML 100 ML BTL IJ (12:13)
[2019-08-29 12:15] LABS: Abs Immature Grans 0.01 k/cumm (0.0-0.09); Absolute Basophil Count 0.02 k/cumm (0.0-0.2); Absolute Eosinophil Count 0.15 k/cumm (0.0-0.7); Absolute Lymphocyte Count 2.06 k/cumm (1.2-3.4); Absolute Monocyte Count 0.45 k/cumm (0.11-0.7); Absolute Neutrophil Count 4.91 k/cumm (1.2-6.7); Basophils % 0.3; HCT 33.5 % (40.0-50.0); HGB 10.7 g/dL (13.5-17.5); Immature Grans % 0.1 %; Lymphocytes % 27.1; Mean Corp. HGB Concentration 31.9 g/dL (32.0-36.0); Mean Corpuscular Hemoglobin 25.2 pg (27.0-33.0); Mean Corpuscular Volume 78.8 fL (80-95); Mean Platelet Volume 8.8 fL (8.0-11.0); Monocytes % 5.9; Neutrophils % 64.6; Platelet Count 234 x1000/uL (130-400); RBC 4.25 m/cumm (4.50-6.00); RBC Distribution Width 15.3 % (11.8-14.1)
== END 2019-08-29 08:30 ==
PROVIDERS: PCP Nurse Practitioner Family; Visit Provider Internal Medicine Infectious Disease
DX: L02.214 Cutaneous abscess of groin (principal); K76.0 Fatty (change of) liver, not elsewhere classified; R16.0 Hepatomegaly, not elsewhere classified; Z79.2 Long term (current) use of antibiotics; Z98.890 Other specified postprocedural states
CPT/HCPCS: 74177; 85025; 86140; J3490; Q9967

== ENCOUNTER 2019-10-13 12:08 | Outpatient (REF) | payer MEDICARE, MEDICAID, SELFPAY ==
[2019-10-13 13:15] LABS: HGB 12.3 g/dL (13.5-17.5); Mean Corp. HGB Concentration 31.5 g/dL (32.0-36.0); Mean Corpuscular Hemoglobin 24.8 pg (27.0-33.0); Mean Corpuscular Volume 78.8 fL (80-95); Mean Platelet Volume 9.3 fL (8.0-11.0); Platelet Count 344 x1000/uL (130-400); RBC 4.95 m/cumm (4.50-6.00); White Blood Cell Count 8.31 k/cumm (4.4-10.8)
[2019-10-13 13:17] LABS: C-Reactive Protein 3.77 mg/dL (0.0-0.3)
== END 2019-10-13 12:28 ==
LOC: NCHCN 12:08
PROVIDERS: PCP Nurse Practitioner Family; Visit Provider Nurse Practitioner Family
DX: K68.12 Psoas muscle abscess (principal)
CPT/HCPCS: 85027; 86140

== ENCOUNTER 2019-11-07 16:52 | Outpatient (REF) | payer MEDICARE, MEDICAID, SELFPAY ==
[2019-11-09 20:04] LABS: SARS-CoV-2 RNA Undetected (Undetected); SARS-CoV-2 Specimen Source Nasopharynx
== END 2019-11-07 17:12 ==
LOC: NCHCN 16:52
PROVIDERS: PCP Nurse Practitioner Family; Visit Provider Physician Assistant
DX: J06.9 Acute upper respiratory infection, unspecified (principal)
CPT/HCPCS: U0003

== ENCOUNTER 2019-11-21 17:52 | Outpatient (REF) | payer MEDICARE, MEDICAID, SELFPAY ==
[2019-11-22 10:21] LABS: Campylobacter PCR Negative (Negative); Salmonella PCR Negative (Negative); Shiga Toxin PCR Negative (Negative); Shigella/Enteroinvasive Ecoli Negative (Negative)
== END 2019-11-21 18:12 ==
LOC: NCHCN 17:52
PROVIDERS: PCP Nurse Practitioner Family; Visit Provider Nurse Practitioner Family
DX: R19.7 Diarrhea, unspecified (principal)
CPT/HCPCS: 87505; 87324

== ENCOUNTER 2020-01-06 10:22 | Outpatient (CLI) | payer MEDICARE, MEDICAID, SELFPAY ==
[2020-01-06 12:27] LABS: Abs Immature Grans 0.03 k/cumm (0.0-0.09); Absolute Basophil Count 0.02 k/cumm (0.0-0.2); Absolute Eosinophil Count 0.12 k/cumm (0.0-0.7); Absolute Lymphocyte Count 1.89 k/cumm (1.2-3.4); Absolute Monocyte Count 0.54 k/cumm (0.11-0.7); Absolute Neutrophil Count 6.51 k/cumm (1.2-6.7); Basophils % 0.2; Eosinophils % 1.3; HCT 36.7 % (40.0-50.0); HGB 11.5 g/dL (13.5-17.5); Immature Grans % 0.3 %; Lymphocytes % 20.7; Mean Corp. HGB Concentration 31.3 g/dL (32.0-36.0); Mean Corpuscular Hemoglobin 24.6 pg (27.0-33.0); Mean Corpuscular Volume 78.6 fL (80-95); Mean Platelet Volume 9.1 fL (8.0-11.0); Monocytes % 5.9; Neutrophils % 71.6; Platelet Count 303 x1000/uL (130-400); RBC 4.67 m/cumm (4.50-6.00); RBC Distribution Width 15.9 % (11.8-14.1); White Blood Cell Count 9.11 k/cumm (4.4-10.8)
[2020-01-06 13:05] LABS: ALT 23 U/L (16-63); AST 20 U/L (15-37); Albumin 3.5 g/dL (3.4-5.0); Alkaline Phosphatase 131 U/L (46-116); Anion Gap 8.5 mmol/L (3-11); BUN 15 mg/dL (7-18); Bilirubin, Total 0.3 mg/dL (0.2-1.0); C-Reactive Protein 4.68 mg/dL (0.0-0.3); CO2 26.5 mmol/L (21.0-32.0); CREATININE 1.07 mg/dL (0.70-1.30); Calcium 8.7 mg/dL (8.5-10.1); Chloride 104 mmol/L (98-107); Glucose 91 mg/dL (74-106); Sodium 139 mmol/L (136-145); Total Protein 7.4 g/dL (6.4-8.2)
== END 2020-01-06 10:42 ==
PROVIDERS: PCP Nurse Practitioner Family; Visit Provider Physician Assistant
DX: K68.12 Psoas muscle abscess (principal); G06.1 Intraspinal abscess and granuloma
CPT/HCPCS: 36415; 80053; 87040; 85025; 86140

== ENCOUNTER 2020-01-24 10:36 | Emergency (ER) | payer MEDICARE, MEDICAID, SELFPAY ==
[2020-01-24 10:42] VITALS: BP 163/109; PULSE 84; RESP 16; TEMP 36.3; O2SAT 98
--- NOTE | 2020-01-24 11:26 | DI.CT_ITS ---
EXAM: CT LOWER EXTREMITY LT W CLINICAL HISTORY: Thigh abscess-infection,fever,chills,swelling,compare to 08/29/19 TECHNIQUE: CT examination of the left inguinal region and upper thigh was performed with intravenous infusion of 100 cc Omnipaque 350. COMPARISON: CT CT LOWER EXTREMITY LT W from 06/16/[address] ABDOMEN PELVIS W from 08/29/2019 FINDINGS: There were prior scans obtained August 29, 2019 and June 2019. Patient has reportedly had rec urrent infections in the left inguinal region. There are multiple vascular clips which lie anterior to the hip joint and extend inferiorly. On today's examination there are multiple areas of fairly lo w attenuation extending from a skin deformity to the level of the neurovascular bundle deep in the up per thigh beyond the bifurcation of external iliac artery and common femoral artery. Findings are foster ggestive of a multiloculated abscess in this area. No bony involvement seen. No significant hip elias nt effusion seen. IMPRESSION: Findings consistent with recurrent complex abscess/phlegmon involving left inguinal region, multiple fat planes and muscle groups are effaced and the area of decreased attenuation extends adjacent to th e profunda femoris artery in the upper thigh. The area of abnormality is significantly larger and mo re extensive and complex than on prior scan of 08/29/2019.
[2020-01-24] MEDS: Omnipaque 350 MG/ML 100 ML BTL IJ (11:39)
[2020-01-24] MEDS: Normal Saline - Diluent 50 ML VIAL IV (11:40)
[2020-01-24 11:42] LABS: Lactate 1.1 mmol/L (0.6-1.4)
--- NOTE | 2020-01-24 11:49 | ED.GENADUL_ITS ---
Discharge Plan Disposition Patient Disposition: OTHER Condition: Serious Discharge Details Chief Complaint: Orthopedic Clinical Impression: Inguinal abscess Primary Care Provider: Ashely Mueller ED Provider: Henry Turcios Home Meds and New Rx's Prescriptions: No Action gabapentin 600 mg Tablet 800 mg PO TID RF: 0 ibuprofen [IBU] 800 mg Tablet 800 mg PO TID PRN (Reason: Pain) Qty: 90 RF: 3 dicloxacillin 500 mg capsule 500 mg PO QID RF: 0 metoprolol succinate [Toprol XL] 100 mg tablet extended release 24 hr 100 mg PO DAILY RF: 0 duloxetine [Cymbalta] 30 mg capsule,delayed release(DR/EC) 60 mg PO DAILY RF: 0 acetaminophen [Mapap Extra Strength] 500 mg Tablet 1,000 mg PO Q8H Qty: 0 RF: 0 oxycodone 15 mg tablet 10 mg PO Q4H MDD 180mg PRNRF: 0 meloxicam 15 mg Tablet 15 mg PO DAILY RF: 0 lisinopril 40 mg Tablet 40 mg PO DAILY RF: 0 Narcan 4 mg/actuation [place],Non-Aerosol 4 mg INTRANASAL Q2M PRNRF: 0 amlodipine 5 mg tablet 10 mg PO DAILY RF: 0 docusate sodium [Colace] 100 mg capsule 100 mg PO DAILY RF: 0 Medical Decision Making 44-year-old gentleman with an extensive and complicated past medical history presents for worsening left hip pain over the past 2 weeks, requesting expedited CT that is scheduled for tomorrow. He currently appears well, nontoxic. He is afebrile. T-max yesterday 102.3. He certainly has an interesting acute on chronic wound in the left inguinal region. Will obtain a CBC, CMP, INR. We will also obtain inflammatory markers. We will give IV fluid and 2 mg IV morphine for discomfort. I have reached out to radiology and he has a CT pending order tomorrow CT with contrast of left thigh, will obtain today. White blood cell count 9.04 hemoglobin 11.7 hematocrit 37.3 platelet count 307. Absolute neutrophils 6.79. ESR 86., Electrolytes unremarkable. CRP 7.4. 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 The area of abnormality significantly larger and more extensive and complex than on prior scan. I discussed the case with infectious disease at [facility], Dr. Bejarano. She does not recommend any additional antibiotic therapy as he is already receiving oral doxycycline. She believes that the area needs to be drained appropriately and then treatment can be changed if indicated. She recommends contacting surgical team to discuss drainage of the wound. Given the location, I first reached out to orthopedics here at our facility, Dr. Restrepo. He believes this is likely not within the joint space and not requiring orthopedic services. He recommends speaking with general surgery, does question if the patient will require a higher level of care given his complex medical problems. I then spoke with surgery here at our facility Dr. Duff, she felt as though the patient would be better served at a higher level of care and did question if a more surgical team approach including general surgery and orthopedics would be required. I reached out to [facility] however they have no [facility] beds and cannot accept any patient. I then spoke with the surgical team at [facility], , and they cannot accept a transfer for at least 24 hours. I spoke with the patient regarding this unfortunate situation, he reports he has gone to [facility] in [place] before and actually has family in the area. Given this I extended my search to [facility]. I spoke with Dr. Garcia, surgery at [facility]. He was happy to accept transfer of the patient. All appropriate paperwork signed. Patient was given another dose of 2 mg IV morphine. Medical Records Medical records reviewed: Yes I reviewed the patient's medical records. Lab Data Lab results reviewed: Yes I reviewed the patient's lab results. Lab results narrative: Laboratory Tests Range/Units 01/24/20 01/24/20 01/24/20 11:13 11:13 11:13 WBC (4.4-10.8) k/cumm 9.04 RBC (4.50-6.00) m/cumm 4.76 Hgb (13.5-17.5) g/dL 11.7 L Hct (40.0-50.0) % 37.3 L MCV (80-95) fL 78.4 L MCH (27.0-33.0) pg 24.6 L MCHC (32.0-36.0) g/dL 31.4 L RDW (11.8-14.1) % 15.9 H Plt Count (130-400) x1000/uL 307 MPV (8.0-11.0) fL 9.2 Immature Gran % % 0.1 Neutrophils % 75.2 Lymphocytes % 16.9 Monocytes % 6.4 Eosinophils % 1.3 Basophils % 0.1 Absolute Neutrophils (1.2-6.7) k/cumm 6.79 H Absolute Lymphocytes (1.2-3.4) k/cumm 1.53 Absolute Monocytes (0.11-0.7) k/cumm 0.58 Absolute Eosinophils (0.0-0.7) k/cumm 0.12 Absolute Basophils (0.0-0.2) k/cumm 0.01 ESR (0-15) mm/hr 86 H Sodium (136-145) mmol/L 138 Potassium (3.5-5.1) mmol/L 3.8 Chloride (98-107) mmol/L 102 Carbon Dioxide (21.0-32.0) mmol/L 25.9 Anion Gap (3-11) mmol/L 10.1 BUN (7-18) mg/dL 11 Creatinine (0.70-1.30) mg/dL 0.91 Estimated GFR/1.73 m2 (mL/min/1.73m2) >= 60.00 Glucose (74-106) mg/dL 95 Lactate (0.6-1.4) mmol/L 1.1 Calcium (8.5-10.1) mg/dL 9.1 Total Bilirubin (0.2-1.0) mg/dL 0.5 AST (15-37) U/L 15 ALT (16-63) U/L 17 Alkaline Phosphatase (46-116) U/L 110 C-Reactive Protein (0.0-0.3) mg/dL 7.40 H Total Protein (6.4-8.2) g/dL 8.1 Albumin (3.4-5.0) g/dL 3.5 HPI General Mode of arrival: ambulatory . Date/Time Provider Initiated Documentation: 01/24/20 10:49 . Limitations to Documentation: no limitations . Information obtained by: patient . HPI Narrative: This is a 44-year-old edin mery who presents for evaluation regarding a chronic back-hip infection, scheduled for an outpatient CT tomorrow. He has a significant hospital history of bipolar disorder, IV drug use, TBI, epidural abscess, discitis, sepsis, chronic pain, hypertension, anxiety, hepatitis C, [place], GERD. He reports that he is followed by infectious disease at [facility]. He reports increasing left groin and hip pain over the past 2 weeks, spoke with infectious disease team, and set up for an outpatient CT tomorrow however given the increasing pain came to the ER for CT today instead. He reports an oral temperature yesterday of 102.3. He denies headache, neck pain, chest pain, shortness of breath abdominal pain, numbness, tingling, weakness. He does not have a fever right now. Patient reports that his pain is moderate at rest, severe with movement. Denies bowel or bladder problems. Related Data Home Medications Medication Instructions Recorded Confirmed ibuprofen [IBU] 800 mg PO TID PRN #90 tab 11/13/18 01/24/20 acetaminophen [Mapap Extra 1,000 mg PO Q8H #0 tab 01/30/19 01/24/20 Strength] gabapentin 800 mg PO TID 03/30/19 01/24/20 Narcan 4 mg INTRANASAL Q2M PRN 06/14/19 01/24/20 amlodipine 10 mg PO DAILY 06/14/19 01/24/20 docusate sodium [Colace] 100 mg PO DAILY 06/14/19 01/24/20 lisinopril 40 mg PO DAILY 06/14/19 01/24/20 meloxicam 15 mg PO DAILY 06/14/19 01/24/20 oxycodone 10 mg PO Q4H PRN MDD 180mg 06/14/19 01/24/20 dicloxacillin 500 mg PO QID 01/24/20 01/24/20 duloxetine [Cymbalta] 60 mg PO DAILY 01/24/20 01/24/20 metoprolol succinate [Toprol XL] 100 mg PO DAILY 01/24/20 01/24/20 Previous Rx's Medication Instructions Recorded ibuprofen [IBU] 800 mg PO TID PRN #90 tab 11/13/18 acetaminophen [Mapap Extra 1,000 mg PO Q8H #0 tab 01/30/19 Strength] Allergies Allergy/AdvReac Type Severity Reaction Status Date / Time No Known Allergies Allergy Verified 01/24/20 10:46 General Stated Complaint: Orthopedic DEEPTI: 3 Review of Systems Constitutional Constitutional: Denies fatigue, Reports fever(s) and Denies weakness Eyes Eyes: Denies change in vision ENT Ears, Nose, Mouth, and Throat: Denies sore throat Cardiovascular Cardiovascular: Denies chest pain and Denies dyspnea Respiratory Respiratory: Denies cough and Denies dyspnea Gastrointestinal Gastrointestinal: Denies abdominal pain, Denies nausea and Denies vomiting Genitourinary Genitourinary: Denies dysuria Musculoskeletal Musculoskeletal: Reports back pain, Denies numbness and Denies tingling Integumentary/Breasts Skin/Breast: Denies rash Neurologic Neurologic: Denies numbness, Denies tingling and Denies weakness Endocrine Endocrine: Denies fatigue [facility] Medical History Affective personality disorder (Chronic) Anxiety (Chronic) Bipolar 2 disorder (Chronic) Depression (Chronic) GERD (gastroesophageal reflux disease) (Chronic) Hepatitis C (Chronic) History of alcohol abuse (Chronic) History of intravenous drug abuse (Chronic) HTN (hypertension) (Chronic) Hyperlipidemia (Chronic) Kidney stones (Chronic) PTSD (post-traumatic stress disorder) (Chronic) TBI (traumatic brain injury) (Chronic) Surgical History Appendectomy Colonoscopy - MAC (11/14/16) EGD - MAC (11/14/16) Rotator Cuff Repair right Spinal Fusion Vasectomy Social History Smoking/Tobacco Use Status: Current-Occasional Tobacco Type: cigarettes Alcohol Intake: former Drug use: Never Substance use type: does not use, former substance user and marijuana Details: Hx drug abuse. has been using marijuana edibles. Current gender identity: male Do you feel safe at home: Yes Do you feel safe in your relationship?: Yes Exam Const General: cooperative, healthy appearing, comfortable and no acute distress Orientation: alert, awake and oriented x3 HENMT Head: normal to inspection, normocephalic and atraumatic Face and sinus: normal facial exam Mouth: moist mucous membranes Throat: posterior oropharynx normal Eyes Conjunctivae: conjunctivae normal Sclera: sclerae normal Neck Neck: normal visual inspection, full ROM, trachea midline, supple and nontender Resp Effort & Inspection: normal respiratory effort and able to speak in complete sentences Auscultation: clear to auscultation bilaterally Cardio Rate: regular rate Rhythm: regular rhythm GI Palpation: soft and nontender Penis: normal penis Meatus: meatus normal Scrotum: scrotum normal Testes: normal Back/Spine/Pelvis Back: No back tenderness Skin Rashes: no rashes Neuro General: patient alert, patient awake, patient oriented x3, moves all extremities and no focal motor deficits Cognition: normal cognition Speech: speech normal Gait: antalgic Motor: muscle tone normal throughout and strength 5/5 throughout Sensory Exam: no sensory deficits noted Extrem Right upper extremity: normal to inspection, full ROM and normal capillary refill Left upper extremity: normal to inspection, full ROM and normal capillary refill Right lower extremity: normal to inspection, full ROM and normal capillary refi ll Left lower extremity: full ROM, normal capillary refill and hip/thigh Details: abnormal to inspection, tenderness, swelling and normal ROM Upper/lower leg/hip images: 1. What appears to be a chronic, healing, intact wound. Associated with erythema, warmth, localized swelling. No induration or fluctuance. No pointing abscess or drainage. There is no lymphangitic streaking. There is no discomfort with passive range of motion of internal or external rotation of the left hip. Psych Appearance: grossly normal Mental Status: mental status grossly normal Course Vital Signs Vital signs: Vital Signs Temperature 36.3 C L 01/24/20 10:42 Pulse 84 01/24/20 10:42 Respiratory Rate 16 01/24/20 10:42 Blood Pressure 163/109 H 01/24/20 10:42 Pulse Oximetry 98 01/24/20 10:42 Temperature 36.3 C L 01/24/20 10:42 Temperature Source Skin 01/24/20 10:42 Pulse 84 01/24/20 10:42 Respiratory Rate 16 01/24/20 10:42 Respiratory Effort Non-Labored 01/24/20 10:42 Blood Pressure 163/109 H 01/24/20 10:42 Blood Pressure Position Sitting 01/24/20 10:42 Pulse Oximetry 98 01/24/20 10:42 Oxygen Delivery Method Room Air 01/24/20 10:42 Oxygen Flow Rate 0 01/24/20 10:42 Pain Level 8 01/24/20 11:19 Lab/Test Results Lab/Test Results: Laboratory Tests Range/Units 01/24/20 11:13 Lactate (0.6-1.4) mmol/L 1.1
[2020-01-24 11:50] LABS: Abs Immature Grans 0.01 k/cumm (0.0-0.09); Absolute Basophil Count 0.01 k/cumm (0.0-0.2); Absolute Eosinophil Count 0.12 k/cumm (0.0-0.7); Absolute Lymphocyte Count 1.53 k/cumm (1.2-3.4); Absolute Monocyte Count 0.58 k/cumm (0.11-0.7); Absolute Neutrophil Count 6.79 k/cumm (1.2-6.7); Basophils % 0.1; Eosinophils % 1.3; HCT 37.3 % (40.0-50.0); HGB 11.7 g/dL (13.5-17.5); Immature Grans % 0.1 %; Lymphocytes % 16.9; Mean Corp. HGB Concentration 31.4 g/dL (32.0-36.0); Mean Corpuscular Hemoglobin 24.6 pg (27.0-33.0); Mean Corpuscular Volume 78.4 fL (80-95); Mean Platelet Volume 9.2 fL (8.0-11.0); Monocytes % 6.4; Neutrophils % 75.2; Platelet Count 307 x1000/uL (130-400); RBC 4.76 m/cumm (4.50-6.00); RBC Distribution Width 15.9 % (11.8-14.1); White Blood Cell Count 9.04 k/cumm (4.4-10.8)
[2020-01-24 12:06] LABS: ALT 17 U/L (16-63); AST 15 U/L (15-37); Albumin 3.5 g/dL (3.4-5.0); Alkaline Phosphatase 110 U/L (46-116); Anion Gap 10.1 mmol/L (3-11); BUN 11 mg/dL (7-18); Bilirubin, Total 0.5 mg/dL (0.2-1.0); CO2 25.9 mmol/L (21.0-32.0); CREATININE 0.91 mg/dL (0.70-1.30); Calcium 9.1 mg/dL (8.5-10.1); Chloride 102 mmol/L (98-107); Glucose 95 mg/dL (74-106); Potassium 3.8 mmol/L (3.5-5.1); Sodium 138 mmol/L (136-145); Total Protein 8.1 g/dL (6.4-8.2)
[2020-01-24 12:31] LABS: ESR 86 mm/hr (0-15)
[2020-01-24] MEDS: Normal Saline 1,000 ML 1000 ML IV (13:35)
[2020-01-24 13:43] VITALS: BP 163/99; PULSE 68; RESP 18; TEMP 36.5; O2SAT 98
[2020-01-24 15:09] VITALS: BP 172/95; PULSE 67; RESP 18; TEMP 36.7; O2SAT 98
[2020-01-24 15:46] VITALS: BP 161/117; PULSE 78; RESP 20; TEMP 36.6; O2SAT 98
[2020-01-24 16:17] VITALS: BP 174/98
[2020-01-24 16:26] VITALS: BP 174/98; PULSE 78; RESP 20; TEMP 36.6; O2SAT 98
[2020-01-24] MEDS: Acetaminophen 500 MG TAB 1000 MG PO (16:37)
[2020-01-24] MEDS: HYDROmorphone 2 MG/ML VIAL IVP (16:38)
== END 2020-01-24 16:49 | disposition other institution (70) ==
PROVIDERS: Emergency Provider Physician Assistant; PCP Nurse Practitioner Family
DX: L02.214 Cutaneous abscess of groin (principal); I10 Essential (primary) hypertension
CPT/HCPCS: 36415; 80053; 85652; 96361; 96374; 96375; 96376; 99285; 73701; 83605; 85025; 86140; J3490

== ENCOUNTER 2025-01-27 11:46 | Emergency (ER) | payer MEDICARE, SELFPAY ==
[2025-01-27 11:51] VITALS: BP 154/80; PULSE 68; RESP 18; TEMP 36.9; O2SAT 100
--- NOTE | 2025-01-27 12:38 | DI.RAD_ITS ---
Exam(s) XR KNEE RT 3V AP,LAT,KIZZY XR ANKLE RT COMPLETE XR TIB/FIB RT EXAM: XR KNEE RT 3V AP,LAT,KIZZY, XR tib/fib RT and XR ankle RT complete CLINICAL HISTORY: fall, pain in prox fib/knee. TECHNIQUE: 2D digital imaging was performed of the right knee, tib/fib and ankle. Three views obtained. AP, oblique, lateral and PA tunnel views were obtained. COMPARISON: CR RIGHT KNEE COMPLETE from 09/22/2006 CR RIGHT ANKLE COMPLETE from 04/18/2009 CR RIGHT TIB/FIB from 04/18/2009 CR XR CHEST 2V PA LATERAL from 01/26/2019 FINDINGS: BONES: No acute fracture is present. No bony destructive lesion is seen. There is enthesophyte at the posterior calcaneus. There is a small plantar calcaneal spur. JOINTS: The knee is normally aligned. No joint effusion is seen. The ankle is well maintained. SOFT TISSUE: Normal. IMPRESSION: There is no acute fracture or dislocation in the right knee, tib/fib or ankle. DATA REPOSITORY: RADIATION DOSE DELIVERED:
--- NOTE | 2025-01-27 12:57 | NUR.NOTE ---
Nursing Note: Patient refused CT, Lab work and hourly VS
--- NOTE | 2025-01-27 13:07 | W.ED.GENAD ---
Discharge Plan Disposition Patient Disposition: Home Condition: Good Discharge Details Clinical Impression: Fall, Pain of right fibula, Contusion of bone, Ankle sprain Primary Care Provider: Unknown,Unknown ED Provider: Kartik Sullivan Home Meds and New Rx's Prescriptions: No Action gabapentin 600 mg Tablet 800 mg PO TID ibuprofen [IBU] 800 mg Tablet 800 mg PO TID PRN (Reason: Pain) Qty: 90 3RF metoprolol succinate [Toprol XL] 100 mg tablet extended release 24 hr 100 mg PO DAILY Patient Comments: TK 1 T PO D duloxetine [Cymbalta] 30 mg capsule,delayed release(DR/EC) 60 mg PO DAILY acetaminophen [Mapap Extra Strength] 500 mg Tablet 1,000 mg PO Q8H Qty: 0 0RF oxycodone 15 mg tablet 10 mg PO Q4H MDD 180mg PRN meloxicam 15 mg Tablet 15 mg PO DAILY lisinopril 40 mg Tablet 40 mg PO DAILY naloxone [Narcan] 4 mg/actuation [place],Non-Aerosol 4 mg INTRANASAL Q2M PRN amlodipine 5 mg tablet 10 mg PO DAILY docusate sodium [Colace] 100 mg capsule 100 mg PO DAILY [place] 500 mg solution 500 mg IV .weekly Rx Instructions: administer 2nd dose 1 week after first dose; administer over 30 mins Discharge Instructions Instructions: Ankle sprain, Acute Pain, Adult Additional Instructions: At this time your x-ray does not show any evidence of fracture for the knee, tibia, for below or ankle. I suspect they are both notably bruised and contused. You probably also have a mild sprain of your ankle and knee. Please remain nonweightbearing for the next 2 to 3 days. Take Tylenol and Motrin as needed for pain. If you have persistent pain after this conservative therapy, then you will likely benefit from an toto-wav-aadxoms hinged knee brace and a lace up ankle splint. If after 2 to 3 weeks of limited nonweightbearing and Tylenol and Motrin and braces, you still have persistent pain you may then require further follow-up with an [facility] specialist. If you notice any worsening of your symptoms, or any new symptoms such as vomiting, diarrhea, fever, chills, shortness of breath, chest pain, numbness, weakness, or fainting , please return immediately to the emergency department for reevaluation. Please follow up with your primary care provider as soon as possible for reassessment and reevaluation. As always, it was a pleasure participating in your medical care today. Discharge Data Discharge Date/Time-TO BE ENTERED AT DEPARTURE: 01/27/25 13:32 HPI General Date/Time Provider Initiated Documentation: 01/27/25 12:00. HPI Narrative: This is a pleasant 49-year-old male with a past medical history of TBI, previous IV drug user, previous spinal surgery with hardware placement which subsequently got infected, hepatitis C, who has a chronic port, presents today for evaluation of right leg pain and flank pain. Patient [place] steps, and hit his right fibula and flank. He took Tylenol and Motrin and he takes regular oxycodone's and states that his pain is notably minimal except when he was ambulating. He denies any other complaints aside from pain in these areas. He denies numbness or tingling of significance. He did not hit his head. No loss of consciousness. No other complaints at this time. Related Data Home Medications ?Medication ?Instructions ?Recorded ?Confirmed ibuprofen 800 mg tablet (IBU) 800 mg PO TID PRN Pain #90 tabs 11/13/18 01/27/25 acetaminophen 500 mg tablet (Mapap 1,000 mg (2 x 500 mg) PO Q8H #0 01/30/19 01/27/25 Extra Strength) tabs gabapentin 600 mg tablet 800 mg PO TID 03/30/19 01/27/25 amlodipine 5 mg tablet 10 mg PO DAILY 06/14/19 01/27/25 docusate sodium 100 mg capsule 100 mg PO DAILY 06/14/19 01/27/25 (Colace) lisinopril 40 mg tablet 40 mg PO DAILY 06/14/19 01/27/25 meloxicam 15 mg tablet 15 mg PO DAILY 06/14/19 01/27/25 naloxone 4 mg/actuation nasal 4 mg intranasal Q2M PRN 06/14/19 01/27/25 spray (Narcan) oxycodone 15 mg tablet 10 mg PO Q4H PRN 06/14/19 01/27/25 duloxetine 30 mg capsule,delayed 60 mg PO DAILY 01/24/20 01/27/25 release (Cymbalta) metoprolol succinate 100 mg 100 mg PO DAILY 01/24/20 01/27/25 tablet,extended release 24 hr (Toprol XL) dalbavancin 500 mg intravenous 500 mg IV .weekly 01/27/25 01/27/25 solution (Dalvance) Previous Rx's ?Medication ?Instructions ?Recorded ibuprofen 800 mg tablet (IBU) 800 mg PO TID PRN Pain #90 tabs 11/13/18 acetaminophen 500 mg tablet (Mapap 1,000 mg (2 x 500 mg) PO Q8H #0 01/30/19 Extra Strength) tabs Allergies Allergy/AdvReac Type Severity Reaction Status Date / Time No Known Allergies Allergy Verified 01/27/25 12:05 General Stated Complaint: Fall/Non TraumaCriteria DEEPTI: 4 Exam Narrative Exam Narrative: 1.Const: Well-nourished, Well-developed, appearing stated age 2.Eyes: PERRL, no conjunctival injection, and symmetrical lids. 3.ENT: Atraumatic external nose and ears. Moist MM. Neck: Symmetric, trachea midline, No thyromegaly. 4.CVS: +S1/S2, Peripheral pulses 2+ and equal in all extremities. Brisk capillary refill in all extremities. 5.RESP: Unlabored respiratory effort. Clear to auscultation bilaterally. No wheezes rales or rhonchi 6.GI: Soft, Nontender/Nondistended, No hepatosplenomegaly. No guarding or rebound. Mild right-sided CVA tenderness. No bruising. 7.MSK: Right leg: Tenderness is present over the proximal mid and distal fibula, no tibial tenderness. No tenderness over the patella. Knee is stable to varus and valgus stressing as well as anterior and posterior drawer test. Mild tenderness over the lateral malleolus. Mild pain with inversion and eversion of the foot. Minimal pain with plantar and dorsiflexion. Mild limp. No tenderness over the thigh. 8.Skin: Warm, Dry. No rashes or lesions. 9.Neuro: ton container filler II-XII grossly intact. Sensation grossly intact, no focal neurologic deficits. 10.Psych: (AAO) x3. Appropriate mood and affect Course Vital Signs Vital signs: Vital Signs Temperature 36.9 C 01/27/25 11:51 Pulse 68 01/27/25 11:51 Respiratory Rate 18 01/27/25 11:51 Blood Pressure 154/80 H 01/27/25 11:51 Pulse Oximetry 100 01/27/25 11:51 Temperature 36.9 C 01/27/25 11:51 Pulse 68 01/27/25 11:51 Respiratory Rate 18 01/27/25 11:51 Blood Pressure 154/80 H 01/27/25 11:51 Pulse Oximetry 100 01/27/25 11:51 Oxygen Delivery Method Room Air 01/27/25 11:51 Oxygen Flow Rate 0 01/27/25 11:51 Pain Level 6 01/27/25 11:51 Medical Decision Making This is a pleasant 49-year-old male with a past medical history of TBI, previous IV drug user, previous spinal surgery with hardware placement which subsequently got infected, hepatitis C, who has a chronic port, presents today for evaluation of right leg pain and flank pain. Patient states [place] steps, and hit his right fibula and flank. He took Tylenol and Motrin and he takes regular oxycodone's and states that his pain is notably minimal except when he was ambulating. He denies any other complaints aside from pain in these areas. He denies numbness or tingling of significance. He did not hit his head. No loss of consciousness. No other complaints at this time. Exam demonstrates tenderness throughout the tibia, minimal right CVA tenderness. Concern for osseous injury, concern for potential right flank contusion, less likely fracture. Recommended CT for imaging of the abdomen and ribs, x-ray for the leg. Patient refused CT imaging, and refused IV access. I did discuss imaging options for the patient and at this time through notable discussion, weighing the risks and benefits, and a shared decision making process the patient has refused imaging at this time. Patient is of an appropriate age to make decisions. The patient is of sound mind, appears clinically sober, and has capacity to make decisions by my clinical exam. Respecting the patient's wishes we will hold off on imaging. Patient does except x-rays though of the leg. X-rays showed no evidence of acute process or fracture per radiology. We did offer crutches for the patient and he declined. We did offer discharge paperwork and this was disposed of in the trash can. Patient was discharged home. He has no other requests or concerns at this time. FINDINGS: BONES: No acute fracture is present. No bony destructive lesion is seen. There is enthesophyte at the posterior calcaneus. There is a small plantar calcaneal spur. JOINTS: The knee is normally aligned. No joint effusion is seen. The ankle is well maintained. SOFT TISSUE: Normal. IMPRESSION: There is no acute fracture or dislocation in the right knee, tib/fib or ankle. PFSH All Active Problems (Updated 01/27/25 @ 13:23 by Kartik Sullivan DO) Ankle sprain (Acute) Contusion of bone (Acute) Pain of right fibula (Acute) Fall (Acute) Adhesive capsulitis of left shoulder (Acute) Ambulatory dysfunction (Chronic) s/p fall TBI (traumatic brain injury) (Chronic) Paraspinal abscess (Chronic) Discitis (Chronic) PICC line infection (Acute) Sepsis (Acute) Suicidal ideation (Chronic) Fall (Acute) Vitamin D deficiency (Acute) Smoker (Acute) Discharge planning issues (Acute) Major depressive episode (Chronic) Chronic pain (Chronic) Hypertension (Chronic) Nausea (Acute) Paraspinal abscess (Chronic) Malaise (Acute) Uncontrolled pain (Acute) Encounter for management of wound VAC (Acute) Acute kidney injury (Acute) in setting of vancomycin therapy Anxiety (Chronic) GERD (gastroesophageal reflux disease) (Chronic) Discharge planning issues (Acute) DVT prophylaxis (Acute) Psoas abscess, left (Acute) Suspected soft tissue infection (Acute) Herpes zoster complication (Acute) Medical History (Updated 01/27/25 @ 13:23 by Kartik Sullivan DO) Palliative care patient Kidney stones Hyperlipidemia HTN (hypertension) History of alcohol abuse History of intravenous drug abuse Hepatitis C Affective personality disorder GERD (gastroesophageal reflux disease) Bipolar 2 disorder Anxiety Depression PTSD (post-traumatic stress disorder) TBI (traumatic brain injury) Surgical History Vasectomy Spinal Fusion Rotator Cuff Repair right EGD - MAC (11/14/16) Colonoscopy - MAC (11/14/16) Appendectomy Social History Smoking/Tobacco Use Status: Current-Occasional Tobacco Type: cigarettes Smoking risk assessment performed?: Yes Alcohol Intake: former Drug use: Never Substance use type: does not use, former substance user and marijuana Details: Hx drug abuse. has been using marijuana edibles. Current gender identity: male Do you feel safe at home: Yes Do you feel safe in your relationship?: Yes
== END 2025-01-27 13:32 | disposition home or self-care (01) ==
LOC: ER 13:41
PROVIDERS: Emergency Provider Student in an Organized Health Care Education/Training Program
DX: M79.661 Pain in right lower leg (principal); S80.11XA Contusion of right lower leg, initial encounter; S93.401A Sprain of unspecified ligament of right ankle, initial encounter; I10 Essential (primary) hypertension; E78.5 Hyperlipidemia, unspecified; F17.210 Nicotine dependence, cigarettes, uncomplicated; Z98.1 Arthrodesis status; W01.198A Fall on same level from slipping, tripping and stumbling with subsequent striking against other object, initial encounter; Y93.01 Activity, walking, marching and hiking; Y92.838 Other recreation area as the place of occurrence of the external cause
CPT/HCPCS: 73562; 80048; 99283; 73590; 73610; 85025